=== PATIENT | male | born 1960 | race Caucasian/White ===

== ENCOUNTER 2021-05-24 09:48 | Inpatient (IN) | payer OTHER, SELFPAY ==
[2021-05-24] VITALS (12 sets, daily range): BP systolic 97–158; BP diastolic 64–82; PULSE 61–151; RESP 14–20; TEMP 36.1–37; O2SAT 92–995; BMI 24.5
--- NOTE | 2021-05-24 | ECG_ITS ---
Test Reason : SOB Blood Pressure : / mmHG Vent. Rate : 129 BPM Atrial Rate : 138 BPM P-R Int : 000 ms QRS Dur : 142 ms QT Int : 364 ms P-R-T Axes : 000 009 053 degrees QTc Int : 533 ms Atrial fibrillation with rapid ventricular response Right bundle branch block Possible Inferior infarct , age undetermined Abnormal ECG No previous ECGs available Referred By: Generic ED Physician Electronically Signed By:CHRIS ALEJANDRO
--- NOTE | ~2021-05-24 | US_ITS ---
EXAMINATION: US VENOUS ULTRASOUND WITH DOPPLER LOWER EXTREMITY, RIGHT CLINICAL INFORMATION: Pain and swelling COMPARISON: None TECHNIQUE: Ultrasound of the deep veins is performed from the hip to the calf with compression sonography and color and pulse Doppler assessment. Spectral analysis with color-flow imaging is performed. FINDINGS: There is normal venous compression and respiratory variation and augmented flow. The visualized common femoral vein, superficial femoral vein, profunda femoral vein, popliteal vein, and posterior tibial vein shows no evidence of deep venous thrombosis. The peroneal vein is not visualized. There is evidence of severe atherosclerotic disease. There is no significant popliteal fossa cyst. US/US venous duplex LE RT IMPRESSION: No DVT demonstrated in the right lower extremity. Peroneal vein in the calf is not visualized. Severe atherosclerotic disease.
--- NOTE | ~2021-05-24 | CT_ITS ---
EXAMINATION: CT ANGIOGRAM OF THE CHEST WITH AND WITHOUT CONTRAST (CT PULMONARY ANGIOGRAM FOR PE) CLINICAL INFORMATION: Reason for Exam dyspnea eval for PE COMPARISON: None TECHNIQUE: Prior to contrast administration, noncontrast localization images were obtained. Subsequently, multidetector volumetric imaging was performed from the thoracic inlet to below the diaphragms following the administration of 65 mL Omnipaque 350 intravenous contrast. No contrast reaction reported Sagittal, coronal, and MIP oblique sagittal reformatted images were obtained on the CT workstation, uploaded to PACS, and reviewed. This CT examination was performed using dose optimization techniques as appropriate, variously including the following: *Automated exposure control *Adjustment of mA and/or kV according to patient size (this includes techniques or standardized protocols for targeted exams where dose is matched to indication/reason for exam; i.e. extremities or head) *Use of iterative reconstruction technique Total exam dose-length product 332 mGy-cm FINDINGS: QUALITY OF STUDY/CONTRAST BOLUS: Satisfactory. PULMONARY ARTERIES: No evidence of filling defects to suggest central or segmental pulmonary emboli. THORACIC AORTA: Normal caliber aorta. LUNG: Linear and patchy airspace opacities in the posterior aspect of the right upper lobe, the right middle and lower lobes, which could reflect atelectasis or infiltrate. Mild atelectasis in the left lower lobe.. PLEURA: Moderate right pleural effusion. Small to moderate left pleural effusion. MEDIASTINUM: Heart is mildly enlarged. No pericardial effusion. No hilar or mediastinal lymphadenopathy. No evidence of septal bowing or right heart strain. CHEST WALL/AXILLA: No axillary or internal mammary lymphadenopathy. OSSEOUS STRUCTURES: Multilevel degenerative changes in the spine. UPPER ABDOMEN: There is small ascites in the right upper quadrant. Small free fluid in the left upper quadrant, including adjacent to the large colon. Small contrast refluxing into the IVC, suggesting mild elevated right heart pressures. CT/CT angio chest PE protocol IMPRESSION: 1. No evidence of filling defects to suggest central or segmental pulmonary emboli. 2. Moderate right pleural effusion. Small to moderate left pleural effusion. 3. Opacities in the right hemithorax which could reflect atelectasis or airspace disease. Left lower lobe atelectasis adjacent to the pleural effusion. 4. Small ascites in the upper abdomen. 5. Small contrast refluxing into the IVC suggesting mild elevated right heart pressures. VTE: negative
--- NOTE | 2021-05-24 10:17 | ED.SOB ---
HPI - SOB/Dyspnea General Chief Complaint: Dyspnea Stated Complaint: DIFF BREATHING Time Seen by Provider: 05/24/21 10:16 Source: patient Mode of arrival: ambulatory Limitations: no limitations History of Present Illness HPI Narrative: 60 yo male with HTN, COPD still smoking heavy drinker last drinnk last night 1 week of dyspnea and RLE swelling MD elicited complaint: shortness of breath Pertinent past history: COPD Onset (ago): week(s) (1) Context: smoke/fume exposure Timing: progressively worsening Severity: severe Exacerbating factors: exertion Relieving factors: nothing Known history of: COPD Associated symptoms: lower extremity pain and palpitations Treatment prior to arrival: none Related Data Allergies Allergy/AdvReac Type Severity Reaction Status Date / Time bee pollen [BEE STINGS] Allergy Severe SWELLING Unverified 06/04/20 14:42 chlorthalidone Allergy Unknown Verified 05/25/17 00:00 ibuprofen Allergy Unknown Verified 05/25/17 00:00 bee sting Allergy Unknown anaphylaxis Uncoded 10/22/19 00:00 HCTZ Allergy Unknown Uncoded 05/25/17 00:00 NSAIDs/HCTZ/Chlorthalidone Allergy Unknown hyponatremi Uncoded 10/22/19 00:00 a Review of Systems Review of Systems: Constitutional : No Fever, No Chills ENT/Mouth : No sore throat, No Rhinorrhea, No Swallowing Difficulty Eyes: No Eye Pain, No Swelling, No Redness Cardiovascular : No Chest Pain, positive SOB, No Orthopnea, positive Edema, pos palpitations Respiratory : No Cough, No Sputum, No Wheezing, positive dyspnea Gastrointestinal : No Nausea, No Vomiting, No Diarrhea, No abdominal Pain, No Hematochezia, No Melena Genitourinary : No Dysuria, No Urinary Frequency, No Hematuria Musculoskeletal : No joint pain, No Myalgias Skin : No Skin Lesions, No rash Neuro : No Weakness, No Numbness, No Dizziness, No Headache Psych : No Anxiety/Panic, No Depression Heme/Lymph: No Bruising, No Lymphadenopathy Endocrine : No Polyuria, No Polydipsia All other systems reviewed and are negative [facility] Past Medical History Attestation statement: The following information was validated with the patient. Medical History Alcohol abuse COPD (chronic obstructive pulmonary disease) HTN (hypertension) Social History Social History (Updated 05/24/21 @ 10:50 by Mar Krishna DO) Alcohol intake: current Patient Tobacco Use Status: Current everyday Tobacco user Advance Directives: No Advance Directives Information Provided: No Physical Exam Vital Signs: Vital Signs: Last Vital Signs Temp 98.5 F 05/24/21 09:57 Pulse 125 H 05/24/21 12:58 Resp 19 05/24/21 12:03 BP 106/74 05/24/21 12:03 Pulse Ox 97 05/24/21 12:03 Body Mass Index 24.5 Appearance: Alert. Oriented X3. Mild acute distress. Anxious Eyes: Pupils equal, round and reactive to light. ENT: Pharynx normal. Neck: Normal inspection. Neck supple. CVS: tachycardic and irregular heart rate and rhythm. Pulses normal. Respiratory: Mild acute resp distress retractions and short phrases, rales in both bases noted diffuse upper lobe wheezing noted Abdomen: Soft and nontender. Skin: Skin warm and dry. Normal skin color. Normal skin turgor. Extremities: R LE swelling >>> L. denies calf ttp Neuro: Oriented X 3. No motor deficit. No sensory deficit. tremulous Course Course Course Narrative: lactic acidosis due to ETOH abuse and not infection or severe sepsis IV lasix ordered, ceftriaxone given, admit to hospitalist, pending MDM - SOB/Dyspnea MDM Narrative Medical decision making narrative: 60 yo male with hx of HTN, COPD - smoker, heavy ETOH abuse comes in with multiple issues including afib with RVR, ETOH withdrawal, COPD exacerbation as well as RLE swelling and concern for PE - labs, IV steroids, 5mg neb, CTA for PE ordered, IV magnesium, dilt gtt for rate control. Planned admit. Phenobarb protocol initiated Lab Data Result diagrams: 05/24/21 10:39 05/24/21 10:39 Labs: Lab Results 05/24/21 05/24/21 05/24/21 Range/Units 10:39 10:39 10:39 WBC 3.8 L (4.8-10.8) X10*3/uL RBC 3.71 L (4.60-5.80) X10*6/uL Hgb 11.6 L (14.0-18.0) g/dl Hct 35.1 L (42-52) % MCV 94.6 (80-98) fL MCH 31.3 (27.0-33.0) pg MCHC 33.0 (31.0-36.0) g/dl RDW 14.6 (11.0-16.0) % Plt Count 132 L (160-400) X10*3/uL MPV 9.8 (9.4-12.4) fL Immature Gran % (Auto) 0.3 (0.0-0.4) % Neut % (Auto) 67.2 (45-73) % Lymph % (Auto) 26.1 (20-40) % [place] % (Auto) 5.1 (2-11) % Eos % (Auto) 0.5 (0-4) % Baso % (Auto) 0.8 (0-2) % Lymph # (Auto) 1.0 L (1.2-4.9) X10*3/uL [place] # (Auto) 0.2 (0.1-1.2) X10*3/uL Eos # (Auto) 0.0 (0.0-0.4) X10*3/uL Baso # (Auto) 0.0 (0.0-0.2) X10*3/uL Abs Immat Gran (auto) 0.01 (0.00-0.03) X10*3/uL Absolute Neuts (auto) 2.5 (2.0-8.3) X10*3/uL Absolute Nucleated RBC 0.000 (0.0-0.012) X10*3/uL Nucleated RBC % (auto) 0.0 (0.0-0.2) /100WBC PT 11.2 (9.9-13.0) SEC INR 1.0 (0.9-1.1) APTT 38.9 H (24.1-38.0) SEC VBG pH (7.32-7.43) VBG pCO2 mmHg VBG pO2 mmHg VBG HCO3 (22-26) mmol/L VBG O2 Saturation % VBG Base Excess mmol/L Sodium 131 L (135-145) mmol/L Potassium 4.2 (3.3-5.1) mmol/L Chloride 98 (96-108) mmol/L Carbon Dioxide 19 L (22-29) mmol/L Anion Gap 18 (12-20) BUN 25 H (9-16) mg/dL Creatinine 0.81 (0.5-1.4) mg/dL Estim Creat Clear Calc 89.5 Estimated GFR > 60 Random Glucose 93 (60-115) mg/dL Lactic Acid (0.5-2.0) mmol/L Calcium 7.9 L (8.4-10.2) mg/dL Magnesium 1.4 L* (1.6-2.6) mg/dL Total Bilirubin 1.6 H (0.0-1.0) mg/dL Direct Bilirubin 1.1 H (0.0-0.5) mg/dL AST 37 (5-37) U/L ALT 9 (0-40) U/L Alkaline Phosphatase 74 (39-117) U/L Troponin I High Sens (<3.5-35.0) ng/L B-Natriuretic Peptide (<100) pg/mL Total Protein 6.4 L (6.5-8.0) g/dL Albumin 3.9 (3.5-5.0) g/dL Lipase 36 (8-78) U/L Ethyl Alcohol mg/dL Coronavirus (PCR) (Negative) Influenza Type A (PCR) (Negative) Influenza Type B (PCR) (Negative) RSV RNA Qual (PCR) (Negative) 05/24/21 05/24/21 05/24/21 Range/Units 10:39 10:39 10:40 WBC (4.8-10.8) X10*3/uL RBC (4.60-5.80) X10*6/uL Hgb (14.0-18.0) g/dl Hct (42-52) % MCV (80-98) fL MCH (27.0-33.0) pg MCHC (31.0-36.0) g/dl RDW (11.0-16.0) % Plt Count (160-400) X10*3/uL MPV (9.4-12.4) fL Immature Gran % (Auto) (0.0-0.4) % Neut % (Auto) (45-73) % Lymph % (Auto) (20-40) % [place] % (Auto) (2-11) % Eos % (Auto) (0-4) % Baso % (Auto) (0-2) % Lymph # (Auto) (1.2-4.9) X10*3/uL [place] # (Auto) (0.1-1.2) X10*3/uL Eos # (Auto) (0.0-0.4) X10*3/uL Baso # (Auto) (0.0-0.2) X10*3/uL Abs Immat Gran (auto) (0.00-0.03) X10*3/uL Absolute Neuts (auto) (2.0-8.3) X10*3/uL Absolute Nucleated RBC (0.0-0.012) X10*3/uL Nucleated RBC % (auto) (0.0-0.2) /100WBC PT (9.9-13.0) SEC INR (0.9-1.1) APTT (24.1-38.0) SEC VBG pH (7.32-7.43) VBG pCO2 mmHg VBG pO2 mmHg VBG HCO3 (22-26) mmol/L VBG O2 Saturation % VBG Base Excess mmol/L Sodium (135-145) mmol/L Potassium (3.3-5.1) mmol/L Chloride (96-108) mmol/L Carbon Dioxide (22-29) mmol/L Anion Gap (12-20) BUN (9-16) mg/dL Creatinine (0.5-1.4) mg/dL Estim Creat Clear Calc Estimated GFR Random Glucose (60-115) mg/dL Lactic Acid 2.8 H* (0.5-2.0) mmol/L Calcium (8.4-10.2) mg/dL Magnesium (1.6-2.6) mg/dL Total Bilirubin (0.0-1.0) mg/dL Direct Bilirubin (0.0-0.5) mg/dL AST (5-37) U/L ALT (0-40) U/L Alkaline Phosphatase (39-117) U/L Troponin I High Sens 22.2 (<3.5-35.0) ng/L B-Natriuretic Peptide 1079 H (<100) pg/mL Total Protein (6.5-8.0) g/dL Albumin (3.5-5.0) g/dL Lipase (8-78) U/L Ethyl Alcohol 248 mg/dL Coronavirus (PCR) (Negative) Influenza Type A (PCR) (Negative) Influenza Type B (PCR) (Negative) RSV RNA Qual (PCR) (Negative) 05/24/21 05/24/21 Range/Units 10:49 11:28 WBC (4.8-10.8) X10*3/uL RBC (4.60-5.80) X10*6/uL Hgb (14.0-18.0) g/dl Hct (42-52) % MCV (80-98) fL MCH (27.0-33.0) pg MCHC (31.0-36.0) g/dl RDW (11.0-16.0) % Plt Count (160-400) X10*3/uL MPV (9.4-12.4) fL Immature Gran % (Auto) (0.0-0.4) % Neut % (Auto) (45-73) % Lymph % (Auto) (20-40) % [place] % (Auto) (2-11) % Eos % (Auto) (0-4) % Baso % (Auto) (0-2) % Lymph # (Auto) (1.2-4.9) X10*3/uL [place] # (Auto) (0.1-1.2) X10*3/uL Eos # (Auto) (0.0-0.4) X10*3/uL Baso # (Auto) (0.0-0.2) X10*3/uL Abs Immat Gran (auto) (0.00-0.03) X10*3/uL Absolute Neuts (auto) (2.0-8.3) X10*3/uL Absolute Nucleated RBC (0.0-0.012) X10*3/uL Nucleated RBC % (auto) (0.0-0.2) /100WBC PT (9.9-13.0) SEC INR (0.9-1.1) APTT (24.1-38.0) SEC VBG pH 7.32 (7.32-7.43) VBG pCO2 36 mmHg VBG pO2 51 mmHg VBG HCO3 18 L (22-26) mmol/L VBG O2 Saturation 72.0 % VBG Base Excess -6.4 mmol/L Sodium (135-145) mmol/L Potassium (3.3-5.1) mmol/L Chloride (96-108) mmol/L Carbon Dioxide (22-29) mmol/L Anion Gap (12-20) BUN (9-16) mg/dL Creatinine (0.5-1.4) mg/dL Estim Creat Clear Calc Estimated GFR Random Glucose (60-115) mg/dL Lactic Acid (0.5-2.0) mmol/L Calcium (8.4-10.2) mg/dL Magnesium (1.6-2.6) mg/dL Total Bilirubin (0.0-1.0) mg/dL Direct Bilirubin (0.0-0.5) mg/dL AST (5-37) U/L ALT (0-40) U/L Alkaline Phosphatase (39-117) U/L Troponin I High Sens (<3.5-35.0) ng/L B-Natriuretic Peptide (<100) pg/mL Total Protein (6.5-8.0) g/dL Albumin (3.5-5.0) g/dL Lipase (8-78) U/L Ethyl Alcohol mg/dL Coronavirus (PCR) NEGATIVE (Negative) Influenza Type A (PCR) NEGATIVE (Negative) Influenza Type B (PCR) NEGATIVE (Negative) RSV RNA Qual (PCR) NEGATIVE (Negative) ECG Data Attestation: I personally reviewed and interpreted this ECG as follows: ECG interpretation date: 05/24/21 ECG interpretation time: 10:57 Interpretation: Rate: 129 Rhythm: afib with RVR [place]: normal RBBB ST T wave : no PAVITHRA, nonspecific qTC: normal prior studies: changed from prior The study has been interpreted contemporaneously by me. . Critical Care Time Critical Care Time Critical Care Time: Yes Total Critical Care Time: 60 Attestation: IV dilt gtt, IV lasix, 5mg albuterol neb, lyte replacement, ETOH withdrawal with phenobarb I attest to this time spent taking care of the patient Discharge Plan Discharge Clinical Impression: Hypomagnesemia, Acidosis, lactic, Pleural effusion, Acute dyspnea, Atrial fibrillation with rapid ventricular response COPD (chronic obstructive pulmonary disease) Qualifiers: COPD type: COPD with acute exacerbation Qualified Code(s): J44.1 - Chronic obstructive pulmonary disease with (acute) exacerbation Patient Disposition: Admitted As Inpatient
[2021-05-24] MEDS: dilTIAZem HCL 50 MG/10 ML VIAL 10 MG IVPUSH (10:42)
[2021-05-24] MEDS: Magnesium Sulfate/H2O 2 GM/50 ML PIGGYBACK IV (10:45)
[2021-05-24] MEDS: methylPREDNISolone Sod Succ 125 MG/2 ML VIAL IVPUSH (10:45)
[2021-05-24 10:48] LABS: MANUAL DIFF FLAG NO
[2021-05-24 10:50] LABS: Basophils Percent Auto 0.8 % (0-2); Eosinophils Percent Auto 0.5 % (0-4); Hematocrit 35.1 % (42-52); Hemoglobin 11.6 g/dl (14.0-18.0); Imm Gran Abs Auto 0.01 X10*3/uL (0.00-0.03); Imm Gran Pct Auto 0.3 % (0.0-0.4); Lymphocytes Percent Auto 26.1 % (20-40); Mean Corpuscular Hemoglobin 31.3 pg (27.0-33.0); Mean Corpuscular Volume 94.6 fL (80-98); Mean Platelet Volume 9.8 fL (9.4-12.4); Monocytes Absolute Auto 0.2 X10*3/uL (0.1-1.2); Monocytes Percent Auto 5.1 % (2-11); Neutrophils Absolute Auto 2.5 X10*3/uL (2.0-8.3); Neutrophils Percent Auto 67.2 % (45-73); Platelet Count 132 X10*3/uL (160-400); Red Blood Count 3.71 X10*6/uL (4.60-5.80); Red Cell Distribution Width 14.6 % (11.0-16.0); White Blood Count 3.8 X10*3/uL (4.8-10.8)
[2021-05-24 10:54] LABS: VBG Base Excess -6.4 mmol/L; VBG HCO3 18 mmol/L (22-26); VBG pCO2 36 mmHg; VBG pH 7.32 (7.32-7.43); VBG pO2 51 mmHg
[2021-05-24 10:56] LABS: Prothrombin Time 11.2 SEC (9.9-13.0); Venous Blood Gas Refer to POC result
[2021-05-24 10:59] LABS: Partial Thromboplastin Time 38.9 SEC (24.1-38.0)
[2021-05-24 11:05] LABS: Ethanol 248 mg/dL; Lactic Acid 2.8 mmol/L (0.5-2.0)
[2021-05-24 11:11] LABS: B Type Natriuretic Peptide 1079 pg/mL (<100); Troponin-I High Sensitivity 22.2 ng/L (<3.5-35.0)
[2021-05-24 11:13] LABS: Alanine Aminotransferase 9 U/L (0-40); Albumin Level 3.9 g/dL (3.5-5.0); Alkaline Phosphatase 74 U/L (39-117); Anion Gap 18 (12-20); Aspartate Amino Transferase 37 U/L (5-37); Bilirubin Direct 1.1 mg/dL (0.0-0.5); Bilirubin Total 1.6 mg/dL (0.0-1.0); Blood Urea Nitrogen 25 mg/dL (9-16); Calcium 7.9 mg/dL (8.4-10.2); Carbon Dioxide 19 mmol/L (22-29); Chloride 98 mmol/L (96-108); Creatinine Clr Calc Pharmacy 89.5; Estimated Glomerular Filt Rate > 60; Glucose Random 93 mg/dL (60-115); Lipase 36 U/L (8-78); Magnesium 1.4 mg/dL (1.6-2.6); Potassium 4.2 mmol/L (3.3-5.1); Sodium 131 mmol/L (135-145); Total Protein 6.4 g/dL (6.5-8.0)
[2021-05-24] MEDS: cefTRIAXone sodium 1 GM in 0.9 % Sodium Chloride 50 ML IV (11:16)
[2021-05-24] MEDS: dilTIAZem HCL 125 MG in 0.9 % Sodium Chloride 100 ML 10 MG IVCONT ×2 (11:50→23:02)
[2021-05-24] MEDS: PHENobarbitaL sodium 130 MG/ML VIAL 264 MG IM (11:56)
[2021-05-24] MEDS: iohexoL 350 MG/ML 100 ML INFUS..BTL IV (11:58)
[2021-05-24] MEDS: Furosemide 40 MG/4 ML VIAL IVPUSH ×2 (11:58→19:08)
[2021-05-24 12:13] LABS: Influenza A PCR NEGATIVE (Negative); Influenza B PCR NEGATIVE (Negative); Resp Syncy Virus RNA Qual PCR NEGATIVE (Negative); SARS COV2 PCR INHOUSE NEGATIVE (Negative)
[2021-05-24 12:46] LABS: Reflex Lactate? Lactic Acid Added
[2021-05-24] MEDS: Albuterol Sulfate (0.083%) 2.5 MG/3 ML VIAL.NEB 5 MG INHALE (12:57)
--- NOTE | 2021-05-24 14:32 | P.HPHOSP_ITS ---
History of Present Illness Date of Service: 05/24/21 Chief Complaint: shortness of breath 60-year-old man presented to the ER with complaints of worsening shortness of breath especially with exertion. He has a history of congestive heart failure, COPD and alcohol abuse. He drinks at least 2 shots of bourbon a day likely more, his last drink was this morning around 03:00 o'clock a.m.. Shortness of breath noted to be about a week with right lower extremity edema. In the ER, he was noted to be in atrial fibrillation with rapid ventricular response. sodium 131, lactic acid peaked at 5.3, magnesium 1.4, bnp 1079. Venous doppler us and CTA both negative. He was not noted to be hypoxic. He was given IV diltiazem drip as well as IV magnesium. he will be admitted for further management and treatment of atrial fibrillation with rapid ventricular response and COPD exacerbation. Review of Systems Review of Systems: Denies any recent fever chills or decrease in appetite respiratory reports shortness of breath cardiovascular denies chest pain gastrointestinal denies any dysphagia abdominal pain nausea vomiting or diarrhea genitourinary denies any dysuria frequency or hematuria musculoskeletal denies any joint pain or swelling neuropsych denies any weakness or seizures all other systems reviewed are negative [facility] Medical History (Updated 05/24/21 @ 16:18 by Elda Reddy NP) Alcohol abuse COPD (chronic obstructive pulmonary disease) HTN (hypertension) Pertinent family history: Mothers side, heart disease Surgical History (Updated 05/24/21 @ 16:01 by Elda Reddy NP) H/O left knee surgery Social History (Updated 05/24/21 @ 16:02 by Elda Reddy NP) Alcohol intake: current Alcohol intake frequency: 3 or more drinks per day Advance Directives: No Advance Directives Information Provided: No Meds Allergies Allergy/AdvReac Type Severity Reaction Status Date / Time bee pollen [BEE STINGS] Allergy Severe SWELLING Unverified 06/04/20 14:42 chlorthalidone Allergy Unknown Verified 05/25/17 00:00 ibuprofen Allergy Unknown Verified 05/25/17 00:00 bee sting Allergy Unknown anaphylaxis Uncoded 10/22/19 00:00 HCTZ Allergy Unknown Uncoded 05/25/17 00:00 NSAIDs/HCTZ/Chlorthalidone Allergy Unknown hyponatremi Uncoded 10/22/19 00:00 a Active Medications: Current Medications Generic Name Dose Route Start Last Admin Trade Name Freq PRN Reason Stop Dose Admin Acetaminophen 650 mg 05/24/21 14:24 Acetaminophen 325 Mg Tablet PO Q6H PRN Pain, Mild (Pain Scale 1-3) Furosemide 40 mg 05/24/21 18:00 Furosemide 40 Mg/4 Ml Vial IVPUSH BID@0900,1800 [facility] Protocol Diltiazem HCl 125 mg/ Sodium 125 mls @ 0 mls/hr 05/24/21 11:00 05/24/21 11:50 Chloride IVCONT 10 mg/hr .Q0M DUANE 10 mls/hr Administration Protocol Per Protocol Medication 1 each 05/24/21 09:00 No Benzodiazepines MISCELLANE DAILY [facility] Ondansetron HCl 4 mg 05/24/21 14:24 Ondansetron Hcl 4 Mg/2 Ml Vial IVPUSH Q8H PRN Nausea and Vomiting Phenobarbital 45 mg 05/25/21 09:00 Phenobarbital 15 Mg Tablet PO 05/26/21 21:01 BID [facility] Phenobarbital 15 mg 05/27/21 09:00 Phenobarbital 15 Mg Tablet PO 05/28/21 21:01 BID [facility] Phenobarbital 15 mg 05/29/21 09:00 Phenobarbital 15 Mg Tablet PO 05/30/21 09:01 DAILY [facility] Phenobarbital Sodium 198 mg 05/24/21 15:00 Phenobarbital Sodium 130 Mg/Ml Vial IM 05/24/21 18:01 Q3H [facility] Sodium Chloride 3 ml 05/24/21 16:00 0.9 % Sodium Chloride Flush 3 Ml Syringe IVFLUSH QSHIFT [facility] Home Medications Medication Instructions Recorded Confirmed Last Taken Type amlodipine 10 mg tablet 1 tab PO DAILY 05/24/21 05/24/21 05/24/21 History lisinopril 10 mg tablet 1 tab PO DAILY 05/24/21 05/24/21 05/24/21 History Physical Exam Vital Signs and Narrative: Vital Signs: Last Vital Signs Temp 98.5 F 05/24/21 09:57 Pulse 112 H 05/24/21 14:13 Resp 19 05/24/21 14:13 BP 110/72 05/24/21 14:13 Pulse Ox 98 05/24/21 14:13 Body Mass Index 24.5 Appearing in no acute distress head is normocephalic atraumatic eyes pupils are PERRLA sclera is anicteric mouth throat mucous membranes are intact and moist neck is supple no lymphadenopathy, no JVD noted lung sounds exp wheezing heart regular rate rhythm, clear S1, S2 positive bowel sounds, abdomen is soft, nontender neuro patient is alert x3, no focal deficits Results Labs CBC and Chem 7: 05/24/21 10:39 05/24/21 10:39 Labs: Laboratory Results - last 24 hr 05/24/21 05/24/21 05/24/21 10:39 10:39 10:39 MCV 94.6 MCH 31.3 MCHC 33.0 RDW 14.6 Plt Count 132 L MPV 9.8 Immature Gran % (Auto) 0.3 Neut % (Auto) 67.2 Lymph % (Auto) 26.1 [place] % (Auto) 5.1 Eos % (Auto) 0.5 Baso % (Auto) 0.8 Lymph # (Auto) 1.0 L [place] # (Auto) 0.2 Eos # (Auto) 0.0 Baso # (Auto) 0.0 Abs Immat Gran (auto) 0.01 Absolute Neuts (auto) 2.5 Absolute Nucleated RBC 0.000 Nucleated RBC % (auto) 0.0 PT 11.2 INR 1.0 APTT 38.9 H VBG pH VBG pCO2 VBG pO2 VBG HCO3 VBG O2 Saturation VBG Base Excess Anion Gap 18 Estim Creat Clear Calc 89.5 Estimated GFR > 60 Random Glucose 93 Lactic Acid Calcium 7.9 L Magnesium 1.4 L* Total Bilirubin 1.6 H Direct Bilirubin 1.1 H AST 37 ALT 9 Alkaline Phosphatase 74 Troponin I High Sens B-Natriuretic Peptide Total Protein 6.4 L Albumin 3.9 Lipase 36 Ethyl Alcohol Coronavirus (PCR) COVID-19 (JAMAR) COVID-19 Clin Com Influenza Type A (PCR) Influenza Type B (PCR) RSV RNA Qual (PCR) 05/24/21 05/24/21 05/24/21 10:39 10:39 10:40 MCV MCH MCHC RDW Plt Count MPV Immature Gran % (Auto) Neut % (Auto) Lymph % (Auto) [place] % (Auto) Eos % (Auto) Baso % (Auto) Lymph # (Auto) [place] # (Auto) Eos # (Auto) Baso # (Auto) Abs Immat Gran (auto) Absolute Neuts (auto) Absolute Nucleated RBC Nucleated RBC % (auto) PT INR APTT VBG pH VBG pCO2 VBG pO2 VBG HCO3 VBG O2 Saturation VBG Base Excess Anion Gap Estim Creat Clear Calc Estimated GFR Random Glucose Lactic Acid 2.8 H* Calcium Magnesium Total Bilirubin Direct Bilirubin AST ALT Alkaline Phosphatase Troponin I High Sens 22.2 B-Natriuretic Peptide 1079 H Total Protein Albumin Lipase Ethyl Alcohol 248 Coronavirus (PCR) COVID-19 (JAMAR) COVID-19 Clin Com Influenza Type A (PCR) Influenza Type B (PCR) RSV RNA Qual (PCR) 05/24/21 05/24/21 05/24/21 10:40 10:49 11:28 MCV MCH MCHC RDW Plt Count MPV Immature Gran % (Auto) Neut % (Auto) Lymph % (Auto) [place] % (Auto) Eos % (Auto) Baso % (Auto) Lymph # (Auto) [place] # (Auto) Eos # (Auto) Baso # (Auto) Abs Immat Gran (auto) Absolute Neuts (auto) Absolute Nucleated RBC Nucleated RBC % (auto) PT INR APTT VBG pH 7.32 VBG pCO2 36 VBG pO2 51 VBG HCO3 18 L VBG O2 Saturation 72.0 VBG Base Excess -6.4 Anion Gap Estim Creat Clear Calc Estimated GFR Random Glucose Lactic Acid Calcium Magnesium Total Bilirubin Direct Bilirubin AST ALT Alkaline Phosphatase Troponin I High Sens B-Natriuretic Peptide Total Protein Albumin Lipase Ethyl Alcohol Coronavirus (PCR) NEGATIVE COVID-19 (JAMAR) Cancelled COVID-19 Clin Com Cancelled Influenza Type A (PCR) NEGATIVE Influenza Type B (PCR) NEGATIVE RSV RNA Qual (PCR) NEGATIVE Imaging Radiologist's Impressions: Impressions Chest CTA 05/24/21 10:27 IMPRESSION: 1. No evidence of filling defects to suggest central or segmental pulmonary emboli. 2. Moderate right pleural effusion. Small to moderate left pleural effusion. 3. Opacities in the right hemithorax which could reflect atelectasis or airspace disease. Left lower lobe atelectasis adjacent to the pleural effusion. 4. Small ascites in the upper abdomen. 5. Small contrast refluxing into the IVC suggesting mild elevated right heart pressures. VTE: negative Venous Duplex 05/24/21 10:30 IMPRESSION: No DVT demonstrated in the right lower extremity. Peroneal vein in the calf is not visualized. Severe atherosclerotic disease. Assessment and Plan (1) Atrial fibrillation with rapid ventricular response: Status: Acute (2) CHF (congestive heart failure): Status: Acute (3) COPD exacerbation: Status: Acute 60 year oldman admitted with acute congestive heart failure, COPD exacerbation and early alcohol withdrawal Afib rvr. new onset. Likely secondary to heart failure, alcohol use Continue diltiazem drip Cardiology consult monitor on telemetry COPD exacerbation . exp wheezing levalbuterol d/t tachycardia solumedrol scheduled supplemental oxygen Alcohol abuse drinks bourban daily on phenobarbitol Hypomagnesemia. Secondary to alcohol use repleted 3gm trend Hyponatremia. Secondary to alcohol use trend DVT prophylaxis with heparin Attending Dr. Shields Quality Stroke Does the patient have a stroke diagnosis?: No VTE Prior VTE?: No VTE Risk Level:: Medical - moderate - high VTE Device Contraindication: Treatment Not Indicated VTE Drug Contraindication: N/A - Med Ordered
[2021-05-24 15:45] LABS: ~Lactic Acid-LAB USE ONLY 5.3 mmol/L (0.5-2.0)
[2021-05-24 15:52] LABS: Glucose Urine UA NEG (NEG); Leukocyte Esterase Urine NEG (NEG); Nitrite Urine NEG (NEG); PH 5.5 (5.0-8.0); Specific Gravity - Urine 1.015 (1.005-1.025); Urine Blood NEG (NEG); Urine Ketones NEG (NEG); Urine Protein NEG (NEG-TRACE)
[2021-05-24 15:54] LABS: Appearance Urine CLEAR; Color Urine STRAW
[2021-05-24] MEDS: PHENobarbitaL sodium 130 MG/ML VIAL 198 MG IM ×2 (16:11→19:10)
[2021-05-24] MEDS: methylPREDNISolone Sod Succ 40 MG/ML VIAL IVPUSH (16:11)
[2021-05-24] MEDS: 0.9 % Sodium Chloride Flush 3 ML SYRINGE IVFLUSH (16:18)
[2021-05-24 17:26] LABS: Reflex Lactate? 2 Y
[2021-05-24 18:09] LABS: ~Lactic Acid-LAB USE ONLY 5.8 mmol/L (0.5-2.0)
[2021-05-25] VITALS (14 sets, daily range): BP systolic 97–127; BP diastolic 63–93; PULSE 74–117; RESP 18–20; TEMP -13.4–36.4; O2SAT 92–96
[2021-05-25] MEDS: methylPREDNISolone Sod Succ 40 MG/ML VIAL IVPUSH ×4 (00:07→20:50)
[2021-05-25] MEDS: 0.9 % Sodium Chloride Flush 3 ML SYRINGE IVFLUSH ×4 (00:07→20:50)
[2021-05-25 05:58] LABS: Hematocrit 30.8 % (42-52); Hemoglobin 10.4 g/dl (14.0-18.0); Imm Gran Abs Auto 0.02 X10*3/uL (0.00-0.03); Imm Gran Pct Auto 0.5 % (0.0-0.4); Lymphocytes Absolute Auto 0.2 X10*3/uL (1.2-4.9); Lymphocytes Percent Auto 3.5 % (20-40); MANUAL DIFF FLAG SCAN; Mean Corpuscular HGB Conc 33.8 g/dl (31.0-36.0); Mean Corpuscular Hemoglobin 31.1 pg (27.0-33.0); Mean Corpuscular Volume 92.2 fL (80-98); Mean Platelet Volume 10.3 fL (9.4-12.4); Monocytes Absolute Auto 0.1 X10*3/uL (0.1-1.2); Monocytes Percent Auto 2.6 % (2-11); Neutrophils Percent Auto 93.4 % (45-73); Platelet Count 109 X10*3/uL (160-400); Red Blood Count 3.34 X10*6/uL (4.60-5.80); Red Cell Distribution Width 14.4 % (11.0-16.0); SCAN SMEAR FLAG 1; White Blood Count 4.3 X10*3/uL (4.8-10.8)
[2021-05-25 06:09] LABS: Anion Gap 18 (12-20); Blood Urea Nitrogen 24 mg/dL (9-16); Carbon Dioxide 20 mmol/L (22-29); Chloride 96 mmol/L (96-108); Creatinine Clr Calc Pharmacy 87.3; Estimated Glomerular Filt Rate > 60; Glucose Random 140 mg/dL (60-115); Potassium 3.7 mmol/L (3.3-5.1); Sodium 130 mmol/L (135-145)
[2021-05-25 06:21] LABS: SLIDE REVIEW VERIFIED
[2021-05-25 08:45] LABS: B Type Natriuretic Peptide 1774 pg/mL (<100)
[2021-05-25 08:59] LABS: Magnesium 1.3 mg/dL (1.6-2.6)
--- NOTE | 2021-05-25 10:02 | PM.CNCAR ---
History of Present Illness History of Present Illness Date of Service: 05/25/21 Chief complaint: CHF Afib RVR Alcohol Abuse Narrative: This is a cardiology consultation regarding atrial fibrillation. Patient is admitted to the hospital with increasing shortness of breath for the last few weeks. There is history of smoking, alcohol excess as well as COPD. Unclear if there is any documented cardiac issues but he gives a vague history of 'cardiovascular problems', in his own terms. Otherwise, there does not seem to be any clear documentation of prior CAD or PCI, congestive heart failure cardiomyopathy. Upon evaluation, noted to be in atrial fibrillation and has remained on scene. Patient does not feel any specific palpitations. Denies any angina type symptoms as well. Review of Systems Review of Systems: Yes all other systems are reviewed and are negative Cardiovascular: Cardiovascular: Reports as per HPI, Reports no additional cardiovascular complaints, Denies acrocyanosis, Denies cool extremities, Denies painful fingertips, Denies chest pain, Denies chest pain at rest, Denies diaphoresis, Denies syncope, Denies irregular heart rhythm, Denies claudication, Denies leg edema, Denies lightheadedness, Denies palpitations and Reports dyspnea Respiratory: Respiratory: Reports dyspnea Neurologic: Denies syncope Endocrine: Endocrine: Denies palpitations PMFSH Past Medical History Medical History (Updated 05/25/21 @ 10:37 by Reyes Anderson MD) Alcohol abuse COPD (chronic obstructive pulmonary disease) HTN (hypertension) Family History Family History (Updated 05/25/21 @ 10:05 by Reyes Anderson MD) Mother Hx of CABG Surgical History Surgical History (Updated 05/24/21 @ 16:01 by Elda Reddy NP) H/O left knee surgery Social History Social History (Updated 05/24/21 @ 16:02 by Elda Reddy NP) Household Members: Family Housing: House Alcohol intake: current Alcohol intake frequency: 3 or more drinks per day Patient Tobacco Use Status: Current everyday Tobacco user Tobacco use type: Cigar Smoked in Last 30 Days: Yes Patient Interested in Nicotine Replacement: No Use of substances other than those prescribed or required for medical reasons: No Currently Displaying Signs/Symptoms of Drug Intoxication Withdrawal: No Have you been hit, kicked, punched, or otherwise hurt by someone within the past year? If so, by whom?: No Do you feel safe in your current relationship?: No Current Relationship Is there a partner from a previous relationship who is making you feel unsafe now?: No Are you made to feel afraid or neglected: No Advance Directives: No Advance Directives Information Provided: No Do you have thoughts of harming others: None Do you have a plan to hurt others: No Plan Recently lost weight without trying: No Nutrition Risks: No Nutritional Risk Meds Allergies Allergy/AdvReac Type Severity Reaction Status Date / Time bee pollen [BEE STINGS] Allergy Severe SWELLING Unverified 06/04/20 14:42 chlorthalidone Allergy Unknown Verified 05/25/17 00:00 ibuprofen Allergy Unknown Verified 05/25/17 00:00 bee sting Allergy Unknown anaphylaxis Uncoded 10/22/19 00:00 HCTZ Allergy Unknown Uncoded 05/25/17 00:00 NSAIDs/HCTZ/Chlorthalidone Allergy Unknown hyponatremi Uncoded 10/22/19 00:00 a Active Medications: Current Medications Generic Name Dose Route Start Last Admin Trade Name Freq PRN Reason Stop Dose Admin Acetaminophen 650 mg 05/24/21 14:24 Acetaminophen 325 Mg Tablet PO Q6H PRN Pain, Mild (Pain Scale 1-3) Furosemide 40 mg 05/24/21 18:00 05/24/21 19:08 Furosemide 40 Mg/4 Ml Vial IVPUSH 40 mg BID@0900,1800 DUANE Administration Protocol Diltiazem HCl 125 mg/ Sodium 125 mls @ 0 mls/hr 05/24/21 11:00 05/24/21 23:02 Chloride IVCONT 10 mg/hr .Q0M DUANE 10 mls/hr Administration Protocol Per Protocol Levalbuterol HCl 1.25 mg 05/24/21 16:00 05/25/21 07:32 Levalbuterol Hcl 1.25 Mg/0.5 Ml Vial.Neb INHALE 1.25 mg RQ4H WHILE AWAKE DUANE Administration Medication 1 each 05/24/21 09:00 No Benzodiazepines MISCELLANE DAILY DUANE Melatonin 6 mg 05/24/21 18:12 Melatonin 3 Mg Tablet PO BEDTIME PRN Sleep Methylprednisolone Sodium Succinate 40 mg 05/24/21 15:45 05/25/21 08:02 Methylprednisolone Sod Succ 40 Mg/Ml Vial IVPUSH 40 mg Q8H DUANE Administration Ondansetron HCl 4 mg 05/24/21 14:24 Ondansetron Hcl 4 Mg/2 Ml Vial IVPUSH Q8H PRN Nausea and Vomiting Phenobarbital 45 mg 05/25/21 09:00 Phenobarbital 15 Mg Tablet PO 05/26/21 21:01 BID [facility] Phenobarbital 15 mg 05/27/21 09:00 Phenobarbital 15 Mg Tablet PO 05/28/21 21:01 BID [facility] Phenobarbital 15 mg 05/29/21 09:00 Phenobarbital 15 Mg Tablet PO 05/30/21 09:01 DAILY [facility] Sodium Chloride 3 ml 05/24/21 16:00 05/25/21 08:01 0.9 % Sodium Chloride Flush 3 Ml Syringe IVFLUSH 3 ml QSHIFT [facility] Administration Home Medications Medication Instructions Recorded Confirmed Last Taken Type amlodipine 10 mg tablet 1 tab PO DAILY 05/24/21 05/24/21 05/24/21 History lisinopril 10 mg tablet 1 tab PO DAILY 05/24/21 05/24/21 05/24/21 History Physical Exam Vital Signs: Vital Signs: Last Vital Signs Temp 97 F 05/25/21 06:53 Pulse 78 05/25/21 07:33 Resp 20 05/25/21 06:53 BP 98/69 05/25/21 06:53 Pulse Ox 96 05/25/21 06:53 Body Mass Index 24.5 Const: General: cooperative and no acute distress HENMT: Other: Unremarkable Neck: Neck: Yes normal visual inspection Chest: Chest palpation & inspection: normal inspection of the chest Resp: Other: Diminished breath sounds bilaterally with scattered wheezing. Cardio: Jugular venous distension: no JVD Palpation: normal PMI Heart sounds: S1 normal heart sound present, S2 normal heart sound present, no gallops, no murmurs and no rubs GI: Palpation (GI): Soft to palpation Back/Spine/Pelvis: Other: unremarkable Skin: General skin exam: no rashes or lesions noted Neuro: Cranial nerves: Yes Other cranial nerve findings present Extrem: General: Yes no clubbing, cyanosis or edema Psych: Mental Status: other Results Labs and Meds Result diagrams: 05/25/21 04:46 05/25/21 04:46 Lab results: Laboratory Results - last 24 hr 05/24/21 05/24/21 05/24/21 10:39 10:39 10:39 WBC 3.8 L RBC 3.71 L Hgb 11.6 L Hct 35.1 L MCV 94.6 MCH 31.3 MCHC 33.0 RDW 14.6 Plt Count 132 L MPV 9.8 Immature Gran % (Auto) 0.3 Neut % (Auto) 67.2 Lymph % (Auto) 26.1 [place] % (Auto) 5.1 Eos % (Auto) 0.5 Baso % (Auto) 0.8 Lymph # (Auto) 1.0 L [place] # (Auto) 0.2 Eos # (Auto) 0.0 Baso # (Auto) 0.0 Abs Immat Gran (auto) 0.01 Absolute Neuts (auto) 2.5 Absolute Nucleated RBC 0.000 Nucleated RBC % (auto) 0.0 Smear Tech's Comments PT 11.2 INR 1.0 APTT 38.9 H VBG pH VBG pCO2 VBG pO2 VBG HCO3 VBG O2 Saturation VBG Base Excess Sodium 131 L Potassium 4.2 Chloride 98 Carbon Dioxide 19 L Anion Gap 18 BUN 25 H Creatinine 0.81 Estim Creat Clear Calc 89.5 Estimated GFR > 60 Random Glucose 93 Lactic Acid Lactic Acid Fup @ 2Hr Lactic Acid Fup @ 4Hr Calcium 7.9 L Magnesium 1.4 L* Total Bilirubin 1.6 H Direct Bilirubin 1.1 H AST 37 ALT 9 Alkaline Phosphatase 74 Troponin I High Sens B-Natriuretic Peptide Total Protein 6.4 L Albumin 3.9 Lipase 36 Urine Color Urine Appearance Urine pH Ur Specific [place] Urine Protein Urine Glucose (UA) Urine Ketones Urine Blood Urine Nitrite Ur Leukocyte Esterase Ethyl Alcohol Coronavirus (PCR) COVID-19 (JAMAR) COVID-19 Clin Com Influenza Type A (PCR) Influenza Type B (PCR) RSV RNA Qual (PCR) 05/24/21 05/24/21 05/24/21 10:39 10:39 10:40 WBC RBC Hgb Hct MCV MCH MCHC RDW Plt Count MPV Immature Gran % (Auto) Neut % (Auto) Lymph % (Auto) [place] % (Auto) Eos % (Auto) Baso % (Auto) Lymph # (Auto) [place] # (Auto) Eos # (Auto) Baso # (Auto) Abs Immat Gran (auto) Absolute Neuts (auto) Absolute Nucleated RBC Nucleated RBC % (auto) Smear Tech's Comments PT INR APTT VBG pH VBG pCO2 VBG pO2 VBG HCO3 VBG O2 Saturation VBG Base Excess Sodium Potassium Chloride Carbon Dioxide Anion Gap BUN Creatinine Estim Creat Clear Calc Estimated GFR Random Glucose Lactic Acid 2.8 H* Lactic Acid Fup @ 2Hr Lactic Acid Fup @ 4Hr Calcium Magnesium Total Bilirubin Direct Bilirubin AST ALT Alkaline Phosphatase Troponin I High Sens 22.2 B-Natriuretic Peptide 1079 H Total Protein Albumin Lipase Urine Color Urine Appearance Urine pH Ur Specific [place] Urine Protein Urine Glucose (UA) Urine Ketones Urine Blood Urine Nitrite Ur Leukocyte Esterase Ethyl Alcohol 248 Coronavirus (PCR) COVID-19 (JAMAR) COVID-19 Clin Com Influenza Type A (PCR) Influenza Type B (PCR) RSV RNA Qual (PCR) 05/24/21 05/24/21 05/24/21 10:40 10:49 11:28 WBC RBC Hgb Hct MCV MCH MCHC RDW Plt Count MPV Immature Gran % (Auto) Neut % (Auto) Lymph % (Auto) [place] % (Auto) Eos % (Auto) Baso % (Auto) Lymph # (Auto) [place] # (Auto) Eos # (Auto) Baso # (Auto) Abs Immat Gran (auto) Absolute Neuts (auto) Absolute Nucleated RBC Nucleated RBC % (auto) Smear Tech's Comments PT INR APTT VBG pH 7.32 VBG pCO2 36 VBG pO2 51 VBG HCO3 18 L VBG O2 Saturation 72.0 VBG Base Excess -6.4 Sodium Potassium Chloride Carbon Dioxide Anion Gap BUN Creatinine Estim Creat Clear Calc Estimated GFR Random Glucose Lactic Acid Lactic Acid Fup @ 2Hr Lactic Acid Fup @ 4Hr Calcium Magnesium Total Bilirubin Direct Bilirubin AST ALT Alkaline Phosphatase Troponin I High Sens B-Natriuretic Peptide Total Protein Albumin Lipase Urine Color Urine Appearance Urine pH Ur Specific [place] Urine Protein Urine Glucose (UA) Urine Ketones Urine Blood Urine Nitrite Ur Leukocyte Esterase Ethyl Alcohol Coronavirus (PCR) NEGATIVE COVID-19 (JAMAR) Cancelled COVID-19 Clin Com Cancelled Influenza Type A (PCR) NEGATIVE Influenza Type B (PCR) NEGATIVE RSV RNA Qual (PCR) NEGATIVE 05/24/21 05/24/21 05/24/21 15:19 15:44 17:48 WBC RBC Hgb Hct MCV MCH MCHC RDW Plt Count MPV Immature Gran % (Auto) Neut % (Auto) Lymph % (Auto) [place] % (Auto) Eos % (Auto) Baso % (Auto) Lymph # (Auto) [place] # (Auto) Eos # (Auto) Baso # (Auto) Abs Immat Gran (auto) Absolute Neuts (auto) Absolute Nucleated RBC Nucleated RBC % (auto) Smear Tech's Comments PT INR APTT VBG pH VBG pCO2 VBG pO2 VBG HCO3 VBG O2 Saturation VBG Base Excess Sodium Potassium Chloride Carbon Dioxide Anion Gap BUN Creatinine Estim Creat Clear Calc Estimated GFR Random Glucose Lactic Acid Lactic Acid Fup @ 2Hr 5.3 H* Lactic Acid Fup @ 4Hr 5.8 H* Calcium Magnesium Total Bilirubin Direct Bilirubin AST ALT Alkaline Phosphatase Troponin I High Sens B-Natriuretic Peptide Total Protein Albumin Lipase Urine Color STRAW Urine Appearance CLEAR Urine pH 5.5 Ur Specific [place] 1.015 Urine Protein NEG Urine Glucose (UA) NEG Urine Ketones NEG Urine Blood NEG Urine Nitrite NEG Ur Leukocyte Esterase NEG Ethyl Alcohol Coronavirus (PCR) COVID-19 (JAMAR) COVID-19 Clin Com Influenza Type A (PCR) Influenza Type B (PCR) RSV RNA Qual (PCR) 05/25/21 05/25/21 05/25/21 04:46 04:46 08:15 WBC 4.3 L RBC 3.34 L Hgb 10.4 L Hct 30.8 L MCV 92.2 MCH 31.1 MCHC 33.8 RDW 14.4 Plt Count 109 L MPV 10.3 Immature Gran % (Auto) 0.5 H Neut % (Auto) 93.4 H Lymph % (Auto) 3.5 L [place] % (Auto) 2.6 Eos % (Auto) 0.0 Baso % (Auto) 0.0 Lymph # (Auto) 0.2 L [place] # (Auto) 0.1 Eos # (Auto) 0.0 Baso # (Auto) 0.0 Abs Immat Gran (auto) 0.02 Absolute Neuts (auto) 4.0 Absolute Nucleated RBC 0.000 Nucleated RBC % (auto) 0.0 Smear Tech's Comments VERIFIED PT INR APTT VBG pH VBG pCO2 VBG pO2 VBG HCO3 VBG O2 Saturation VBG Base Excess Sodium 130 L Potassium 3.7 Chloride 96 Carbon Dioxide 20 L Anion Gap 18 BUN 24 H Creatinine 0.83 Estim Creat Clear Calc 87.3 Estimated GFR > 60 Random Glucose 140 H D Lactic Acid Lactic Acid Fup @ 2Hr Lactic Acid Fup @ 4Hr Calcium 8.0 L Magnesium 1.3 L* Total Bilirubin Direct Bilirubin AST ALT Alkaline Phosphatase Troponin I High Sens B-Natriuretic Peptide 1774 H Total Protein Albumin Lipase Urine Color Urine Appearance Urine pH Ur Specific [place] Urine Protein Urine Glucose (UA) Urine Ketones Urine Blood Urine Nitrite Ur Leukocyte Esterase Ethyl Alcohol Coronavirus (PCR) COVID-19 (JAMAR) COVID-19 Clin Com Influenza Type A (PCR) Influenza Type B (PCR) RSV RNA Qual (PCR) ECG Interpretation: EKG with atrial fibrillation at 129/Min with right bundle-branch block pattern. Imaging Radiologist's impression: Impressions Chest CTA 05/24/21 10:27 IMPRESSION: 1. No evidence of filling defects to suggest central or segmental pulmonary emboli. 2. Moderate right pleural effusion. Small to moderate left pleural effusion. 3. Opacities in the right hemithorax which could reflect atelectasis or airspace disease. Left lower lobe atelectasis adjacent to the pleural effusion. 4. Small ascites in the upper abdomen. 5. Small contrast refluxing into the IVC suggesting mild elevated right heart pressures. VTE: negative Venous Duplex 05/24/21 10:30 IMPRESSION: No DVT demonstrated in the right lower extremity. Peroneal vein in the calf is not visualized. Severe atherosclerotic disease. Assessment and Plan (1) Atrial fibrillation with rapid ventricular response: Status: Acute (2) Acute congestive heart failure: Qualifiers: Heart failure type: unspecified Qualified Code(s): I50.9 - Heart failure, unspecified Status: Acute (3) Alcohol abuse: Status: Acute (4) COPD exacerbation: Status: Acute High sensitivity troponin 22.2. Cardiac BNP 1039, 1774. Chest CT scan reported to have no filling defects; moderate right pleural effusion and [id number] left pleural effusion. Small amount of ascites in the upper abdomen; small contrast flexing to IV suggesting elevated right heart pressures. Will need echocardiogram for further evaluation. Otherwise, agree with empiric diuretics. Based on LV EF on the echocardiogram will decide further care. Okay to remain on Cardizem for the time being. Start Eliquis for anticoagulation. Will follow. Procedures Date of Service Date of Service: 05/25/21
--- NOTE | 2021-05-25 10:35 | CA_ITS ---
Transthoracic Echocardiogram Patient (Last, First, Middle): Brad Gordon R Gender: Male Date of : 1960 Age: 60 Procedure Date: 05/25/2021 Procedure Type: Transthoracic Echocardiogram [place] [facility] [place]: 170.18 cm Weight: 71.22 kg BSA: 1.82 m2 Heart Rate: bpm BP: 117 / 93 mmHg Title Insurance Sales Representative: VIRIDIANA/KENNY Referring MD: Elda Reddy NP Symptoms: sob Study Quality: Fair ECG Rhythm: Atrial Fibrillation Conclusions: - The left ventricular systolic function is severely decreased. The calculated ejection fraction is 17% by biplane method. - Possible apical thrombus. - The left atrium is severely dilated. - There is mild to moderate mitral valve regurgitation. Findings Procedure Information Contrast agent, definity, is being given per protocol without apparent complications. Left Ventricle Moderately increased left ventricular cavity size. There is mildly increased left ventricular wall thickness. The left ventricular systolic function is severely decreased. The calculated ejection fraction is 17% by biplane method. There is severe global hypokinesis. Diastolic function is indeterminate on the basis of available data. Possible apical thrombus. Wall Motion Rest Echo Findings The basal inferior segment is akinetic. Right Ventricle Mildly increased right ventricular cavity size. There is mildly decreased right ventricular systolic function. TAPSE 1.51cm. Atria The left atrium is severely dilated. The right atrium is moderately dilated. Aortic Valve There is mild calcification of the aortic valve. There is no aortic valve stenosis. There is no aortic valve regurgitation. Mitral Valve There is mild mitral annular calcification. There is mild to moderate mitral valve regurgitation. There is no mitral valve stenosis. Pulmonic Valve The pulmonic valve was not well visualized. Tricuspid Valve Normal tricuspid valve structure. There is mild tricuspid valve regurgitation. The right ventricular systolic pressure is 35 mmHg. Mild pulmonary hypertension is present. Great Vessels The aorta was not well visualized. The aortic annulus is normal in size. Small plaque is seen in the sino tubular ridge. Venous The inferior vena cava is dilated and collapses less than 50% with inspiration. Pericardium/Pleural There is a small loculated pericardial effusion overlying the left atrium and right atrium. Prior Study Comparison Changes noted compared to prior study dated: 03/08/2017. Diminished LVEF. Measurements 2D Linear Measurements IVSd: 1.12 0.6-0.9/0.6-1.0 cm LVIDd: 6.49 3.9-5.3/4.2-5.9 cm LVIDd Index: 3.57 2.4-3.2/2.2-3.1 cm/m2 LVIDs: 5.27 2.0-3.6 cm LVPWd: 1.10 0.7-1.1 cm Ao Root: 3.60 2.1-3.5 cm LA Diam: 4.50 2.7-3.8/3.0-4.0 cm LAIDs Index: 2.47 1.5-2.3 cm/m2 LV Mass: 402.91 67-162/88-224 g LV Mass Index: 221.38 43-95/49-115 g/m2 LVOT Diam: 2.10 3.0+(-)1.3 cm 2D Systolic Function EF 4C: 19.60 >55% EF 2C: 15.60 >55% EF BiP: 17.00 >55% Mitral Valve E'Lateral: 11.30 E'Medial: 3.15 MR Vol - PW Dopp: 29.90 MR VTI: 1.30 MR ERO: 23.00 MR Alias Jame: 0.35 MR RAD: 0.70 Aortic Valve AoV Pk Jame: 1.08 AoV Mn Jame: 0.85 AoV VTI: 0.17 AoV Pk Grad: 5.00 Aov Mn Grad: 3.00 ADAM Cont.VTI: 2.45 LVOT LVOT Pk Jame: 0.84 LVOT Mn Jame: 0.55 LVOT VTI: 0.12 LVOT Pk Grad: 3.00 LVOT Mn Grad: 1.00 LVOT Diam: 2.10 LVOT Area: 3.46 Diastolic Function E'Medial: 3.15 E' Laterial: 11.30 Right Ventricle TAPSE (mm): 15.00 TVS' Jame: 6.00 Tricuspid Valve TR Pk Jame: 2.25 TR Pk Grad: 20.00 RA Press: 15.00 RVSP: 35.00 Great Vessels Aorta Ao Root-2D: 3.60 2.0-3.7 cm Updated in Other Vendor System with Status of Final Reyes Anderson MD electronically signed on 05/25/2021 11:41:36 AM with status of Final
--- NOTE | 2021-05-25 10:44 | PM.IMPN ---
Progress Note: A&P (1) Acute congestive heart failure: Status: Acute (2) Alcohol abuse: Status: Acute (3) COPD exacerbation: Status: Acute Assessment and Plan: 60 year old man admitted with acute congestive heart failure, COPD exacerbation and early alcohol withdrawal Afib rvr. new onset.? Likely secondary to heart failure, alcohol use Continue diltiazem drip Cardiology consult monitor on telemetry COPD exacerbation . exp wheezing levalbuterol d/t tachycardia solumedrol scheduled supplemental oxygen Alcohol abuse on phenobarbitol Hypomagnesemia. Secondary to alcohol use repleted 3gm trend Hyponatremia. Secondary to alcohol use trend DVT prophylaxis with heparin Attending Dr. Diop Subjective Subjective Date of Service: 05/25/21 Review of Systems Follow up CHF, AFIB RVR, Alcohol abuse Better today still in RVR with wheezing Physical Exam Vital Signs: Vital Signs: Last Vital Signs Temp 97 F 05/25/21 06:53 Pulse 78 05/25/21 07:33 Resp 20 05/25/21 06:53 BP 98/69 05/25/21 06:53 Pulse Ox 96 05/25/21 06:53 Body Mass Index 24.5 Appearing in no acute distress lung soundsexp wheezes heart regular rate rhythm, clear S1, S2 positive bowel sounds, abdomen is soft, nontender neuro patient is alert x3, no focal deficits Objective Data Current Medications Generic Name Dose Route Start Last Admin Trade Name Freq PRN Reason Stop Dose Admin Acetaminophen 650 mg 05/24/21 14:24 Acetaminophen 325 Mg Tablet PO Q6H PRN Pain, Mild (Pain Scale 1-3) Furosemide 40 mg 05/24/21 18:00 05/24/21 19:08 Furosemide 40 Mg/4 Ml Vial IVPUSH 40 mg BID@0900,1800 DUANE Administration Protocol Diltiazem HCl 125 mg/ Sodium 125 mls @ 0 mls/hr 05/24/21 11:00 05/24/21 23:02 Chloride IVCONT 10 mg/hr .Q0M DUANE 10 mls/hr Administration Protocol Per Protocol Levalbuterol HCl 1.25 mg 05/24/21 16:00 05/25/21 07:32 Levalbuterol Hcl 1.25 Mg/0.5 Ml Vial.Neb INHALE 1.25 mg RQ4H WHILE AWAKE DUANE Administration Medication 1 each 05/24/21 09:00 No Benzodiazepines MISCELLANE DAILY DUANE Melatonin 6 mg 05/24/21 18:12 Melatonin 3 Mg Tablet PO BEDTIME PRN Sleep Methylprednisolone Sodium Succinate 40 mg 05/24/21 15:45 05/25/21 08:02 Methylprednisolone Sod Succ 40 Mg/Ml Vial IVPUSH 40 mg Q8H DUANE Administration Ondansetron HCl 4 mg 05/24/21 14:24 Ondansetron Hcl 4 Mg/2 Ml Vial IVPUSH Q8H PRN Nausea and Vomiting Phenobarbital 45 mg 05/25/21 09:00 Phenobarbital 15 Mg Tablet PO 05/26/21 21:01 BID DUANE Phenobarbital 15 mg 05/27/21 09:00 Phenobarbital 15 Mg Tablet PO 05/28/21 21:01 BID DUANE Phenobarbital 15 mg 05/29/21 09:00 Phenobarbital 15 Mg Tablet PO 05/30/21 09:01 DAILY DUANE Sodium Chloride 3 ml 05/24/21 16:00 05/25/21 08:01 0.9 % Sodium Chloride Flush 3 Ml Syringe IVFLUSH 3 ml QSHIFT [facility] Administration Labs CBC & Chem 7: 05/25/21 04:46 05/25/21 04:46 Labs: Laboratory Results - last 24 hr 05/24/21 05/24/21 05/24/21 10:39 10:39 10:39 MCV 94.6 MCH 31.3 MCHC 33.0 RDW 14.6 Plt Count 132 L MPV 9.8 Immature Gran % (Auto) 0.3 Neut % (Auto) 67.2 Lymph % (Auto) 26.1 [place] % (Auto) 5.1 Eos % (Auto) 0.5 Baso % (Auto) 0.8 Lymph # (Auto) 1.0 L [place] # (Auto) 0.2 Eos # (Auto) 0.0 Baso # (Auto) 0.0 Abs Immat Gran (auto) 0.01 Absolute Neuts (auto) 2.5 Absolute Nucleated RBC 0.000 Nucleated RBC % (auto) 0.0 Smear Tech's Comments PT 11.2 INR 1.0 APTT 38.9 H VBG pH VBG pCO2 VBG pO2 VBG HCO3 VBG O2 Saturation VBG Base Excess Anion Gap 18 Estim Creat Clear Calc 89.5 Estimated GFR > 60 Random Glucose 93 Lactic Acid Lactic Acid Fup @ 2Hr Lactic Acid Fup @ 4Hr Calcium 7.9 L Magnesium 1.4 L* Total Bilirubin 1.6 H Direct Bilirubin 1.1 H AST 37 ALT 9 Alkaline Phosphatase 74 Troponin I High Sens B-Natriuretic Peptide Total Protein 6.4 L Albumin 3.9 Lipase 36 Urine Color Urine Appearance Urine pH Ur Specific [place] Urine Protein Urine Glucose (UA) Urine Ketones Urine Blood Urine Nitrite Ur Leukocyte Esterase Ethyl Alcohol Coronavirus (PCR) COVID-19 (JAMAR) COVID-19 Clin Com Influenza Type A (PCR) Influenza Type B (PCR) RSV RNA Qual (PCR) 05/24/21 05/24/21 05/24/21 10:39 10:39 10:40 MCV MCH MCHC RDW Plt Count MPV Immature Gran % (Auto) Neut % (Auto) Lymph % (Auto) [place] % (Auto) Eos % (Auto) Baso % (Auto) Lymph # (Auto) [place] # (Auto) Eos # (Auto) Baso # (Auto) Abs Immat Gran (auto) Absolute Neuts (auto) Absolute Nucleated RBC Nucleated RBC % (auto) Smear Tech's Comments PT INR APTT VBG pH VBG pCO2 VBG pO2 VBG HCO3 VBG O2 Saturation VBG Base Excess Anion Gap Estim Creat Clear Calc Estimated GFR Random Glucose Lactic Acid 2.8 H* Lactic Acid Fup @ 2Hr Lactic Acid Fup @ 4Hr Calcium Magnesium Total Bilirubin Direct Bilirubin AST ALT Alkaline Phosphatase Troponin I High Sens 22.2 B-Natriuretic Peptide 1079 H Total Protein Albumin Lipase Urine Color Urine Appearance Urine pH Ur Specific [place] Urine Protein Urine Glucose (UA) Urine Ketones Urine Blood Urine Nitrite Ur Leukocyte Esterase Ethyl Alcohol 248 Coronavirus (PCR) COVID-19 (JAMAR) COVID-19 Clin Com Influenza Type A (PCR) Influenza Type B (PCR) RSV RNA Qual (PCR) 05/24/21 05/24/21 05/24/21 10:40 10:49 11:28 MCV MCH MCHC RDW Plt Count MPV Immature Gran % (Auto) Neut % (Auto) Lymph % (Auto) [place] % (Auto) Eos % (Auto) Baso % (Auto) Lymph # (Auto) [place] # (Auto) Eos # (Auto) Baso # (Auto) Abs Immat Gran (auto) Absolute Neuts (auto) Absolute Nucleated RBC Nucleated RBC % (auto) Smear Tech's Comments PT INR APTT VBG pH 7.32 VBG pCO2 36 VBG pO2 51 VBG HCO3 18 L VBG O2 Saturation 72.0 VBG Base Excess -6.4 Anion Gap Estim Creat Clear Calc Estimated GFR Random Glucose Lactic Acid Lactic Acid Fup @ 2Hr Lactic Acid Fup @ 4Hr Calcium Magnesium Total Bilirubin Direct Bilirubin AST ALT Alkaline Phosphatase Troponin I High Sens B-Natriuretic Peptide Total Protein Albumin Lipase Urine Color Urine Appearance Urine pH Ur Specific [place] Urine Protein Urine Glucose (UA) Urine Ketones Urine Blood Urine Nitrite Ur Leukocyte Esterase Ethyl Alcohol Coronavirus (PCR) NEGATIVE COVID-19 (JAMAR) Cancelled COVID-19 Clin Com Cancelled Influenza Type A (PCR) NEGATIVE Influenza Type B (PCR) NEGATIVE RSV RNA Qual (PCR) NEGATIVE 05/24/21 05/24/21 05/24/21 15:19 15:44 17:48 MCV MCH MCHC RDW Plt Count MPV Immature Gran % (Auto) Neut % (Auto) Lymph % (Auto) [place] % (Auto) Eos % (Auto) Baso % (Auto) Lymph # (Auto) [place] # (Auto) Eos # (Auto) Baso # (Auto) Abs Immat Gran (auto) Absolute Neuts (auto) Absolute Nucleated RBC Nucleated RBC % (auto) Smear Tech's Comments PT INR APTT VBG pH VBG pCO2 VBG pO2 VBG HCO3 VBG O2 Saturation VBG Base Excess Anion Gap Estim Creat Clear Calc Estimated GFR Random Glucose Lactic Acid Lactic Acid Fup @ 2Hr 5.3 H* Lactic Acid Fup @ 4Hr 5.8 H* Calcium Magnesium Total Bilirubin Direct Bilirubin AST ALT Alkaline Phosphatase Troponin I High Sens B-Natriuretic Peptide Total Protein Albumin Lipase Urine Color STRAW Urine Appearance CLEAR Urine pH 5.5 Ur Specific [place] 1.015 Urine Protein NEG Urine Glucose (UA) NEG Urine Ketones NEG Urine Blood NEG Urine Nitrite NEG Ur Leukocyte Esterase NEG Ethyl Alcohol Coronavirus (PCR) COVID-19 (JAMAR) COVID-19 Clin Com Influenza Type A (PCR) Influenza Type B (PCR) RSV RNA Qual (PCR) 05/25/21 05/25/21 05/25/21 04:46 04:46 08:15 MCV 92.2 MCH 31.1 MCHC 33.8 RDW 14.4 Plt Count 109 L MPV 10.3 Immature Gran % (Auto) 0.5 H Neut % (Auto) 93.4 H Lymph % (Auto) 3.5 L [place] % (Auto) 2.6 Eos % (Auto) 0.0 Baso % (Auto) 0.0 Lymph # (Auto) 0.2 L [place] # (Auto) 0.1 Eos # (Auto) 0.0 Baso # (Auto) 0.0 Abs Immat Gran (auto) 0.02 Absolute Neuts (auto) 4.0 Absolute Nucleated RBC 0.000 Nucleated RBC % (auto) 0.0 Smear Tech's Comments VERIFIED PT INR APTT VBG pH VBG pCO2 VBG pO2 VBG HCO3 VBG O2 Saturation VBG Base Excess Anion Gap 18 Estim Creat Clear Calc 87.3 Estimated GFR > 60 Random Glucose 140 H D Lactic Acid Lactic Acid Fup @ 2Hr Lactic Acid Fup @ 4Hr Calcium 8.0 L Magnesium 1.3 L* Total Bilirubin Direct Bilirubin AST ALT Alkaline Phosphatase Troponin I High Sens B-Natriuretic Peptide 1774 H Total Protein Albumin Lipase Urine Color Urine Appearance Urine pH Ur Specific [place] Urine Protein Urine Glucose (UA) Urine Ketones Urine Blood Urine Nitrite Ur Leukocyte Esterase Ethyl Alcohol Coronavirus (PCR) COVID-19 (JAMAR) COVID-19 Clin Com Influenza Type A (PCR) Influenza Type B (PCR) RSV RNA Qual (PCR) Quality Stroke Does the patient have a stroke diagnosis?: No VTE Prior VTE?: No VTE Risk Level:: Medical - moderate - high VTE Device Contraindication: Treatment Not Indicated VTE Drug Contraindication: N/A - Med Ordered
[2021-05-25] MEDS: PHENobarbitaL 15 MG TABLET 45 MG PO ×2 (11:16→20:49)
[2021-05-25] MEDS: Furosemide 40 MG/4 ML VIAL IVPUSH ×2 (11:16→17:16)
[2021-05-25] MEDS: Magnesium Sulfate/H2O 2 GM/50 ML PIGGYBACK IV (11:19)
--- NOTE | 2021-05-25 11:21 | MHC.CM.PN ---
CM MET WITH PT WHO REPORTS HE LIVES WITH HIS SISTER AND IS INDEPENDENT WITH ALL CARE AND MOBILITY. PT DENIES USE OF DME AND HAS NO SERVICES. PT REPORTS HIS PCP, MAINOR KAPOOR, IS AT [facility] [place]. PT STATED HE DID A HCP IN THE PAST BUT DOES NOT KNOW WHERE IT IS. PT COMPLETED A NEW HCP TODAY NAMING HIS NEPHEW, ROSANGELA VEGAS, HIS AGENT. CURRENT DC PLAN IS HOME WITH NO SERVICES. PT WILL SELF ARRANGE TRANSPORT PT ALSO REPORTS BEING INTERESTED IN CHANGING PCPS IN THE NEAR FUTURE. A LIST OF PCPS AT [facility] IN [place] WAS PROVIDED PER PT REQUEST.
[2021-05-25 11:54] LABS: B Type Natriuretic Peptide 1770 pg/mL (<100)
[2021-05-25] MEDS: Digoxin 0.5 MG/2 ML AMPUL 0.125 MG IVPUSH ×2 (13:34→17:16)
[2021-05-25] MEDS: Metoprolol Tartrate 25 MG TABLET PO ×3 (13:37→20:49)
[2021-05-25] MEDS: Apixaban 5 MG TABLET PO (20:49)
[2021-05-26] VITALS (12 sets, daily range): BP systolic 100–148; BP diastolic 64–104; PULSE 68–122; RESP 15–22; TEMP 35.7–36.8; O2SAT 88–97
[2021-05-26] MEDS: Digoxin 0.5 MG/2 ML AMPUL 0.125 MG IVPUSH
[2021-05-26] MEDS: PHENobarbitaL 15 MG TABLET 45 MG PO ×2 (06:08→21:39)
[2021-05-26 06:53] LABS: Hematocrit 31.8 % (42-52); Hemoglobin 10.4 g/dl (14.0-18.0); Mean Corpuscular HGB Conc 32.7 g/dl (31.0-36.0); Mean Corpuscular Hemoglobin 30.7 pg (27.0-33.0); Mean Corpuscular Volume 93.8 fL (80-98); Mean Platelet Volume 10.5 fL (9.4-12.4); Platelet Count 101 X10*3/uL (160-400); Red Blood Count 3.39 X10*6/uL (4.60-5.80); Red Cell Distribution Width 14.7 % (11.0-16.0); White Blood Count 8.3 X10*3/uL (4.8-10.8)
[2021-05-26 07:04] LABS: Anion Gap 17 (12-20); Blood Urea Nitrogen 24 mg/dL (9-16); Carbon Dioxide 23 mmol/L (22-29); Chloride 94 mmol/L (96-108); Creatinine Clr Calc Pharmacy 85.3; Estimated Glomerular Filt Rate > 60; Glucose Random 126 mg/dL (60-115); Potassium 3.7 mmol/L (3.3-5.1); Sodium 130 mmol/L (135-145)
[2021-05-26] MEDS: 0.9 % Sodium Chloride Flush 3 ML SYRINGE IVFLUSH ×3 (09:00→23:51)
[2021-05-26] MEDS: Apixaban 5 MG TABLET PO ×2 (09:00→19:33)
[2021-05-26] MEDS: predniSONE 20 MG TABLET 40 MG PO (09:00)
[2021-05-26] MEDS: Furosemide 40 MG/4 ML VIAL IVPUSH ×2 (09:01→18:06)
[2021-05-26] MEDS: Metoprolol Tartrate 25 MG TABLET PO ×4 (09:01→21:38)
[2021-05-26 09:08] LABS: B Type Natriuretic Peptide 2542 pg/mL (<100)
[2021-05-26] MEDS: PHENobarbitaL sodium 130 MG/ML VIAL IM ×2 (10:13→19:29)
--- NOTE | 2021-05-26 11:11 | MHC.CM.PN ---
Per ROUNDS discussion, Patient is not yet medically cleared for dc (IV Lasix). Home is the goal for dc and CM will follow for possible need to adjust the dc plan.
--- NOTE | 2021-05-26 11:42 | PM.PNCARD ---
Subjective Subjective Date of Service: 05/26/21 Interval history: Patient seems to be in alcohol withdrawal and trying to leave while I am talking to him. Denies any cardiac symptoms. Review of Systems Review of Systems Yes all other systems are reviewed and are negative Cardiovascular: Reports as per HPI, Reports no additional cardiovascular complaints, Denies acrocyanosis, Denies cool extremities, Denies painful fingertips, Denies chest pain, Denies chest pain at rest, Denies diaphoresis, Denies syncope, Denies irregular heart rhythm, Denies claudication, Denies leg edema, Denies lightheadedness, Denies palpitations and Reports dyspnea Respiratory: Reports dyspnea Denies syncope Endocrine: Denies palpitations Physical Exam Vital Signs: Last Vital Signs Temp 97 F 05/26/21 11:17 Pulse 93 05/26/21 11:17 Resp 20 05/26/21 11:17 BP 148/78 H 05/26/21 11:17 Pulse Ox 96 05/26/21 11:17 Body Mass Index 24.5 Const General: cooperative and no acute distress [facility] Other: Unremarkable Neck Neck: Yes normal visual inspection Chest Chest palpation & inspection: normal inspection of the chest Resp Other: Diminished breath sounds bilaterally with scattered wheezing. Cardio Jugular venous distension: no JVD Palpation: normal PMI Heart sounds: S1 normal heart sound present, S2 normal heart sound present, no gallops, no murmurs and no rubs GI Palpation (GI): Soft to palpation Back/Spine/Pelvis Other: unremarkable Skin General skin exam: no rashes or lesions noted Neuro Cranial nerves: Yes Other cranial nerve findings present Extrem General: Yes no clubbing, cyanosis or edema Psych Mental Status: other Results Labs and Meds Result diagrams: 05/26/21 05:20 05/26/21 05:20 Lab results: Laboratory Results - last 24 hr 05/25/21 05/26/21 05/26/21 11:27 05:20 05:20 WBC 8.3 RBC 3.39 L Hgb 10.4 L Hct 31.8 L MCV 93.8 MCH 30.7 MCHC 32.7 RDW 14.7 Plt Count 101 L MPV 10.5 Absolute Nucleated RBC 0.000 Nucleated RBC % (auto) 0.0 Sodium 130 L Potassium 3.7 Chloride 94 L Carbon Dioxide 23 Anion Gap 17 BUN 24 H Creatinine 0.85 Estim Creat Clear Calc 85.3 Estimated GFR > 60 Random Glucose 126 H Calcium 8.0 L B-Natriuretic Peptide 1770 H 05/26/21 05:20 WBC RBC Hgb Hct MCV MCH MCHC RDW Plt Count MPV Absolute Nucleated RBC Nucleated RBC % (auto) Sodium Potassium Chloride Carbon Dioxide Anion Gap BUN Creatinine Estim Creat Clear Calc Estimated GFR Random Glucose Calcium B-Natriuretic Peptide 2542 H ECG Interpretation: Patient removed telemetry Progress Note: A&P Assessment and plan (1) Atrial fibrillation with rapid ventricular response: Status: Acute (2) Acute congestive heart failure: Status: Acute (3) Alcohol abuse: Status: Acute (4) COPD exacerbation: Status: Acute Assessment and Plan: High sensitivity troponin 22.2. Cardiac BNP 1039, 1774. Chest CT scan reported to have no filling defects; moderate right pleural effusion and [id number] left pleural effusion. Small amount of ascites in the upper abdomen; small contrast flexing to IV suggesting elevated right heart pressures. Echocardiogram with markedly diminished LVEF. Possible apical thrombus. Unfortunately, patient is withdrawing from alcohol and hence has minimal understanding. Hence that will need to be treated accordingly. Discussed with hospitalist. From cardiac, beta-blockers can be used for rate control. He is not a candidate for HU cardioversion in this setting. Empiric anticoagulation considering the atrial fibrillation as well as possible thrombus. We will follow-up with you. Fall Risk Details Current Medications: Current Medications Generic Name Dose Route Start Last Admin Trade Name Freq PRN Reason Stop Dose Admin Acetaminophen 650 mg 05/24/21 14:24 Acetaminophen 325 Mg Tablet PO Q6H PRN Pain, Mild (Pain Scale 1-3) Apixaban 5 mg 05/25/21 21:00 05/26/21 09:00 Apixaban 5 Mg Tablet PO 5 mg BID DAUNE Administration Furosemide 40 mg 05/24/21 18:00 05/26/21 09:01 Furosemide 40 Mg/4 Ml Vial IVPUSH 40 mg BID@0900,1800 DUANE Administration Protocol Levalbuterol HCl 1.25 mg 05/24/21 16:00 05/26/21 09:14 Levalbuterol Hcl 1.25 Mg/0.5 Ml Vial.Neb INHALE 1.25 mg RQ4H WHILE AWAKE DUANE Administration Medication 1 each 05/24/21 09:00 No Benzodiazepines MISCELLANE DAILY DUANE Melatonin 6 mg 05/24/21 18:12 Melatonin 3 Mg Tablet PO BEDTIME PRN Sleep Metoprolol Tartrate 25 mg 05/25/21 13:00 05/26/21 09:01 Metoprolol Tartrate 25 Mg Tablet PO 25 mg QID DUANE Administration Protocol Ondansetron HCl 4 mg 05/24/21 14:24 Ondansetron Hcl 4 Mg/2 Ml Vial IVPUSH Q8H PRN Nausea and Vomiting Phenobarbital 45 mg 05/25/21 09:00 05/26/21 06:08 Phenobarbital 15 Mg Tablet PO 05/26/21 21:01 45 mg BID DUANE Administration Phenobarbital 15 mg 05/27/21 09:00 Phenobarbital 15 Mg Tablet PO 05/28/21 21:01 BID DUANE Phenobarbital 15 mg 05/29/21 09:00 Phenobarbital 15 Mg Tablet PO 05/30/21 09:01 DAILY DUANE Sodium Chloride 3 ml 05/24/21 16:00 05/26/21 09:00 0.9 % Sodium Chloride Flush 3 Ml Syringe IVFLUSH 3 ml QSHIFT DUANE Administration Time Spent With Patient Time: Total time spent is greater than 50% in coordination of care (as documented) at patient's floor/unit and/or counseling patient: Time with patient: less than 15 minutes Progress Note: Quality Stroke Does the patient have a stroke diagnosis?: No Procedures Date of Service Date of Service: 05/26/21
--- NOTE | 2021-05-26 11:57 | PC.NURSE ---
Late entry: 929 Pt restless in room, stating he is leaving. disoriented/confused. Removes telemonitor. Stating he is in the [facility] and was recently discharged from [facility]. Pt sob when talking, sats 94% on room air. Dr Barnard notified and in to speak with pt. Phenobarbital 130mg IM ordered and given at 1013 with some effect. Telemonitor reapplied and Pt assisted into bed, unsteady gait. Bed alarm on for pt safety. Telesitter in room. Pt slept for about half hour and is currently eating lunch. Will continue to monitor
--- NOTE | 2021-05-26 12:57 | ECG_ITS ---
Test Reason : AFIB W/RVR Blood Pressure : / mmHG Vent. Rate : 127 BPM Atrial Rate : 153 BPM P-R Int : 000 ms QRS Dur : 144 ms QT Int : 392 ms P-R-T Axes : 000 019 075 degrees QTc Int : 569 ms Atrial fibrillation with rapid ventricular response Right bundle branch block Possible Inferior infarct (cited on or before 24-MAY-2021) Abnormal ECG When compared with ECG of 24-MAY-2021 10:46, Nonspecific T wave abnormality now evident in Lateral leads Referred By: Teresa Barnard Electronically Signed By:CHRIS ALEJANDRO
--- NOTE | 2021-05-26 13:40 | P.PNIM_ITS ---
Subjective Subjective Date of Service: 05/26/21 Interval History: the patient was seen and evaluated this morning Walking in his room and trying to leave it, mildly anxious about being in the hospital Denies any fever, chills or shortness of breath No reported other overnight events. Systemic review: No fever, chills but reports feeling unsteady and is my not clear No chest pain, palpitation No shortness of breath or coughing No abdominal pain, nausea or vomiting No urinary symptoms No any rash or wounds Physical Exam Vital Signs: Vital Signs: Last Vital Signs Temp 97 F 05/26/21 11:17 Pulse 88 05/26/21 12:47 Resp 20 05/26/21 11:17 BP 148/78 H 05/26/21 11:17 Pulse Ox 96 05/26/21 11:17 Body Mass Index 24.5 Const: Other: Constitutional : Alert, disoriented and mildly anxious Neck : Normal inspection, Supple Cardiovascular : RRR, S1 S2, no lower extremity edema Respiratory : Fair bilateral air entry, basal bilateral crackles with mild expiratory wheezes Gastrointestinal: soft, lax, Normal bowel sounds, Non tender Skin : Warm, Dry Neurological : Alert & oriented to self but disoriented about time and place No focal deficit Objective Data Active Medications Acetaminophen (Acetaminophen 325 Mg Tablet) 650 mg PO Q6H PRN PRN Reason: Pain, Mild (Pain Scale 1-3) Apixaban (Apixaban 5 Mg Tablet) 5 mg PO BID [facility] Last Admin: 05/26/21 09:00 Dose: 5 mg Documented by: NANCY Furosemide (Furosemide 40 Mg/4 Ml Vial) 40 mg IVPUSH BID@0900,1800 [facility]; Protocol Last Admin: 05/26/21 09:01 Dose: 40 mg Documented by: NANCY Levalbuterol HCl (Levalbuterol Hcl 1.25 Mg/0.5 Ml Vial.Neb) 1.25 mg INHALE RQ4H WHILE AWAKE [facility] Last Admin: 05/26/21 12:44 Dose: 1.25 mg Documented by: LOW Medication (No Benzodiazepines) 1 each MISCELLANE DAILY [facility] Melatonin (Melatonin 3 Mg Tablet) 6 mg PO BEDTIME PRN PRN Reason: Sleep Metoprolol Tartrate (Metoprolol Tartrate 25 Mg Tablet) 25 mg PO QID [facility]; Protocol Last Admin: 05/26/21 09:01 Dose: 25 mg Documented by: NANCY Ondansetron HCl (Ondansetron Hcl 4 Mg/2 Ml Vial) 4 mg IVPUSH Q8H PRN PRN Reason: Nausea and Vomiting Phenobarbital (Phenobarbital 15 Mg Tablet) 45 mg PO BID [facility] Stop: 05/26/21 21:01 Last Admin: 05/26/21 06:08 Dose: 45 mg Documented by: BREONNA Phenobarbital (Phenobarbital 15 Mg Tablet) 15 mg PO BID [facility] Stop: 05/28/21 21:01 Phenobarbital (Phenobarbital 15 Mg Tablet) 15 mg PO DAILY [facility] Stop: 05/30/21 09:01 Sodium Chloride (0.9 % Sodium Chloride Flush 3 Ml Syringe) 3 ml IVFLUSH QSHIFT [facility] Last Admin: 05/26/21 09:00 Dose: 3 ml Documented by: NANCY Labs CBC & Chem 7: 05/26/21 05:20 05/26/21 05:20 Labs: Laboratory Results - last 24 hr 05/26/21 05/26/21 05/26/21 05:20 05:20 05:20 MCV 93.8 MCH 30.7 MCHC 32.7 RDW 14.7 Plt Count 101 L MPV 10.5 Absolute Nucleated RBC 0.000 Nucleated RBC % (auto) 0.0 Anion Gap 17 Estim Creat Clear Calc 85.3 Estimated GFR > 60 Random Glucose 126 H Calcium 8.0 L B-Natriuretic Peptide 2542 H Microbiology Microbiology Results: Microbiology 05/24/21 10:39 Blood Culture - Preliminary Blood - Venous No growth after 48 hours. 05/24/21 10:39 Blood Culture - Preliminary Blood - Venous No growth after 48 hours. Assessment and Plan (1) Acute congestive heart failure: Status: Acute (2) Alcohol withdrawal: Status: Acute (3) COPD exacerbation: Status: Acute (4) Hypomagnesemia: Status: Acute Assessment and Plan: 60 year old man admitted with acute congestive heart failure, COPD exacerbation and early alcohol withdrawal Afib rvr. new onset.? secondary to heart failure, alcohol use Better controlled today Continue metoprolol Cardiology input appreciated monitor on telemetry Acute CHF exacerbation Cardiomyopathy Echo showed EF of 17% Likely related to chronic alcohol abuse Optimize medications Cardiology following COPD exacerbation Improved exp wheezing levalbuterol d/t tachycardia Change steroids to prednisone supplemental oxygen Alcohol withdrawal To give extra doses of phenobarbitol Hypomagnesemia. Secondary to alcohol use repleted 3gm trend Hyponatremia. Secondary to alcohol use trend DVT prophylaxis with heparin a Quality Stroke Does the patient have a stroke diagnosis?: No VTE Prior VTE?: No VTE Risk Level:: Medical - moderate - high VTE Device Contraindication: Treatment Not Indicated VTE Drug Contraindication: N/A - Med Ordered
[2021-05-26] MEDS: PHENobarbitaL sodium 130 MG/ML VIAL 260 MG IM (13:48)
--- NOTE | 2021-05-26 18:03 | MHC.RECOVSUP ---
Recovery Support note: Patient is a 60 year old [place]anian speaking male who presented to [facility] ED due to SOB and leg swelling. Patient was medically admitted. This screenplay writer met with patient to discuss his alcohol use and recovery supports. Patient reports he has had periods of sobriety however was unable to elaborate. Patient reports he has been to detox however started drinking because he would get the shakes. Patient reports I drink because I shake, but I shake because I drink. Discussed with patient how it is unlikely that the shaking is related to his drinking if it is occurring long after a detox admission. Patient acknowledged and reports his doctor thinks it may be neurological. Patient reports a [place] tree fell on his head at some point. Patient reports he has an OUI from 10/2019 and that he is still trying to get his license back. Patient reports his sister wants to kick him out due to his drinking. Patient acknowledges that drinking is affecting many aspects of his life and health and that he wants to maintain sobriety. Patient reports he has utilized AA over the phone and found it helpful. Patient expresses that he prefers face to face supports. Discussed recovery coaching with patient and he was agreeable to meeting with a power and recovery supervisor. Patient was able to engage with this screenplay writer however presented as confused at times. Patient would benefit from a follow up by the Recovery Support Team and a Digital Analyst to further discuss his recovery and available supports.
[2021-05-27] VITALS (13 sets, daily range): BP systolic 84–152; BP diastolic 60–81; PULSE 60–118; RESP 18–20; TEMP 36.1–36.6; O2SAT 85–98
--- NOTE | 2021-05-27 05:30 | MHC.PIE ---
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 NOTIFIED.ORDER FOR PHENOBARB 130 MG IM X 1 GIVEN. E.MED GIVEN,PT ASSISTED TO BED.RESTING AT THIS TIME.
[2021-05-27] MEDS: PHENobarbitaL sodium 130 MG/ML VIAL IM (05:45)
[2021-05-27 06:59] LABS: B Type Natriuretic Peptide 3092 pg/mL (<100)
[2021-05-27 07:10] LABS: Anion Gap 16 (12-20); Blood Urea Nitrogen 26 mg/dL (9-16); Carbon Dioxide 24 mmol/L (22-29); Chloride 95 mmol/L (96-108); Creatinine Clr Calc Pharmacy 87.3; Estimated Glomerular Filt Rate > 60; Glucose Random 103 mg/dL (60-115); Potassium 3.6 mmol/L (3.3-5.1); Sodium 131 mmol/L (135-145)
[2021-05-27 07:15] LABS: Magnesium 1.7 mg/dL (1.6-2.6)
[2021-05-27] MEDS: Folic Acid 1 MG TABLET PO (10:09)
[2021-05-27] MEDS: PHENobarbitaL 15 MG TABLET PO ×2 (10:09→20:50)
[2021-05-27] MEDS: Multivitamin TABLET 1 TAB PO (10:09)
[2021-05-27] MEDS: Metoprolol Tartrate 25 MG TABLET PO ×4 (10:09→20:50)
[2021-05-27] MEDS: Apixaban 5 MG TABLET PO ×2 (10:09→20:51)
[2021-05-27] MEDS: Thiamine HCL 100 MG TABLET PO (10:09)
[2021-05-27] MEDS: Furosemide 40 MG/4 ML VIAL IVPUSH ×2 (10:09→17:16)
[2021-05-27] MEDS: metOLazone 2.5 MG TABLET PO (10:09)
[2021-05-27] MEDS: 0.9 % Sodium Chloride Flush 3 ML SYRINGE IVFLUSH ×3 (10:09→20:52)
--- NOTE | 2021-05-27 10:48 | PM.PNCARD ---
Subjective Subjective Date of Service: 05/27/21 Interval history: Still in alcohol withdrawal. Sleepy. Denies any cardiac symptoms. Review of Systems Review of Systems Unable to obtain. Physical Exam Vital Signs: Last Vital Signs Temp 97.8 F 05/27/21 10:05 Pulse 89 05/27/21 10:09 Resp 18 05/27/21 03:05 BP 134/79 05/27/21 10:05 Pulse Ox 92 05/27/21 10:42 Body Mass Index 24.5 Const General: no acute distress HENMT Other: Unremarkable Neck Neck: Yes normal visual inspection Chest Chest palpation & inspection: normal inspection of the chest Resp Other: Diminished breath sounds bilaterally with scattered wheezing. Cardio Jugular venous distension: no JVD Palpation: normal PMI Heart sounds: S1 normal heart sound present, S2 normal heart sound present, no gallops, no murmurs and no rubs GI Palpation (GI): Soft to palpation Back/Spine/Pelvis Other: unremarkable Skin General skin exam: no rashes or lesions noted Neuro Cranial nerves: Yes Other cranial nerve findings present Extrem General: Yes no clubbing, cyanosis or edema Psych Mental Status: other Results Labs and Meds Result diagrams: 05/26/21 05:20 05/27/21 05:30 Lab results: Laboratory Results - last 24 hr 05/27/21 05/27/21 05/27/21 05:30 05:30 05:30 Sodium 131 L Potassium 3.6 Chloride 95 L Carbon Dioxide 24 Anion Gap 16 BUN 26 H Creatinine 0.83 Estim Creat Clear Calc 87.3 Estimated GFR > 60 Random Glucose 103 Calcium 8.0 L Magnesium 1.7 B-Natriuretic Peptide 3092 H Progress Note: A&P Assessment and plan (1) Atrial fibrillation with rapid ventricular response: Status: Acute (2) Acute congestive heart failure: Status: Acute (3) Alcohol abuse: Status: Acute (4) COPD exacerbation: Status: Acute Assessment and Plan: High sensitivity troponin 22.2. Cardiac BNP 1039, 1774. Chest CT scan reported to have no filling defects; moderate right pleural effusion and [id number] left pleural effusion. Small amount of ascites in the upper abdomen; small contrast flexing to IV suggesting elevated right heart pressures. Echocardiogram with markedly diminished LVEF. Possible apical thrombus. Unfortunately, patient is withdrawing from alcohol and hence has minimal understanding. Hence that will need to be treated accordingly. Discussed with hospitalist. From cardiac, beta-blockers can be used for rate control. He is not a candidate for HU/ cardioversion in this setting. Empiric anticoagulation considering the atrial fibrillation as well as possible thrombus. We will follow-up with you. Fall Risk Details Current Medications: Current Medications Generic Name Dose Route Start Last Admin Trade Name Freq PRN Reason Stop Dose Admin Acetaminophen 650 mg 05/24/21 14:24 Acetaminophen 325 Mg Tablet PO Q6H PRN Pain, Mild (Pain Scale 1-3) Apixaban 5 mg 05/25/21 21:00 05/27/21 10:09 Apixaban 5 Mg Tablet PO 5 mg BID DUANE Administration Folic Acid 1 mg 05/27/21 09:00 05/27/21 10:09 Folic Acid 1 Mg Tablet PO 1 mg DAILY DUANE Administration Furosemide 40 mg 05/24/21 18:00 05/27/21 10:09 Furosemide 40 Mg/4 Ml Vial IVPUSH 40 mg BID@0900,1800 DUANE Administration Protocol Levalbuterol HCl 1.25 mg 05/24/21 16:00 05/27/21 09:29 Levalbuterol Hcl 1.25 Mg/0.5 Ml Vial.Neb INHALE Not Given RQ4H WHILE AWAKE DUANE Medication 1 each 05/24/21 09:00 No Benzodiazepines MISCELLANE DAILY DUANE Melatonin 6 mg 05/24/21 18:12 Melatonin 3 Mg Tablet PO BEDTIME PRN Sleep Metoprolol Tartrate 25 mg 05/25/21 13:00 05/27/21 10:09 Metoprolol Tartrate 25 Mg Tablet PO 25 mg QID DUANE Administration Protocol Multivitamins/Vitamin C 1 tab 05/27/21 09:00 05/27/21 10:09 Multivitamin Tablet PO 1 tab DAILY DUANE Administration Ondansetron HCl 4 mg 05/24/21 14:24 Ondansetron Hcl 4 Mg/2 Ml Vial IVPUSH Q8H PRN Nausea and Vomiting Phenobarbital 15 mg 05/27/21 09:00 05/27/21 10:09 Phenobarbital 15 Mg Tablet PO 05/28/21 21:01 15 mg BID DUANE Administration Phenobarbital 15 mg 05/29/21 09:00 Phenobarbital 15 Mg Tablet PO 05/30/21 09:01 DAILY DUANE Sodium Chloride 3 ml 05/24/21 16:00 05/27/21 10:09 0.9 % Sodium Chloride Flush 3 Ml Syringe IVFLUSH 3 ml QSHIFT DUANE Administration Thiamine HCl 100 mg 05/27/21 09:00 05/27/21 10:09 Thiamine Hcl 100 Mg Tablet PO 100 mg DAILY DUANE Administration Time Spent With Patient Time: Total time spent is greater than 50% in coordination of care (as documented) at patient's floor/unit and/or counseling patient: Time with patient: less than 15 minutes Progress Note: Quality Stroke Does the patient have a stroke diagnosis?: No Procedures Date of Service Date of Service: 05/27/21
--- NOTE | 2021-05-27 13:28 | HO.PM.IMPN ---
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 Systemic review: No fever, chills but reports feeling unsteady and is my not clear No chest pain, palpitation No shortness of breath or coughing No abdominal pain, nausea or vomiting No urinary symptoms No any rash or wounds Physical Exam Vital Signs: Vital Signs: Last Vital Signs Temp 97.4 F 05/27/21 11:07 Pulse 70 05/27/21 11:21 Resp 20 05/27/21 11:07 BP 111/81 05/27/21 11:07 Pulse Ox 92 05/27/21 11:07 Body Mass Index 24.5 Const: Other: Constitutional : Alert, disoriented and mildly anxious, interactive with no aggressiveness Neck : Normal inspection, Supple Cardiovascular : RRR, S1 S2, no lower extremity edema Respiratory : Fair bilateral air entry, basal bilateral crackles with mild expiratory wheezes Gastrointestinal: soft, lax, Normal bowel sounds, Non tender Skin : Warm, Dry Neurological : Alert & oriented to self but disoriented about time and place No focal deficit Objective Data Active Medications Acetaminophen (Acetaminophen 325 Mg Tablet) 650 mg PO Q6H PRN PRN Reason: Pain, Mild (Pain Scale 1-3) Apixaban (Apixaban 5 Mg Tablet) 5 mg PO BID [facility] Last Admin: 05/27/21 10:09 Dose: 5 mg Documented by: DIDI Folic Acid (Folic Acid 1 Mg Tablet) 1 mg PO DAILY [facility] Last Admin: 05/27/21 10:09 Dose: 1 mg Documented by: DDII Furosemide (Furosemide 40 Mg/4 Ml Vial) 40 mg IVPUSH BID@0900,1800 [facility]; Protocol Last Admin: 05/27/21 10:09 Dose: 40 mg Documented by: DIDI Levalbuterol HCl (Levalbuterol Hcl 1.25 Mg/0.5 Ml Vial.Neb) 1.25 mg INHALE RQ4H WHILE AWAKE [facility] Last Admin: 05/27/21 11:23 Dose: 1.25 mg Documented by: JOAQUÍN Medication (No Benzodiazepines) 1 each MISCELLANE DAILY [facility] Melatonin (Melatonin 3 Mg Tablet) 6 mg PO BEDTIME PRN PRN Reason: Sleep Metoprolol Tartrate (Metoprolol Tartrate 25 Mg Tablet) 25 mg PO QID [facility]; Protocol Last Admin: 05/27/21 13:26 Dose: 25 mg Documented by: DIDI Multivitamins/Vitamin C (Multivitamin Tablet) 1 tab PO DAILY [facility] Last Admin: 05/27/21 10:09 Dose: 1 tab Documented by: DIDI Ondansetron HCl (Ondansetron Hcl 4 Mg/2 Ml Vial) 4 mg IVPUSH Q8H PRN PRN Reason: Nausea and Vomiting Phenobarbital (Phenobarbital 15 Mg Tablet) 15 mg PO BID [facility] Stop: 05/28/21 21:01 Last Admin: 05/27/21 10:09 Dose: 15 mg Documented by: DIDI Phenobarbital (Phenobarbital 15 Mg Tablet) 15 mg PO DAILY [facility] Stop: 05/30/21 09:01 Sodium Chloride (0.9 % Sodium Chloride Flush 3 Ml Syringe) 3 ml IVFLUSH QSHIFT [facility] Last Admin: 05/27/21 10:09 Dose: 3 ml Documented by: DIDI Thiamine HCl (Thiamine Hcl 100 Mg Tablet) 100 mg PO DAILY [facility] Last Admin: 05/27/21 10:09 Dose: 100 mg Documented by: DDII Labs CBC & Chem 7: 05/26/21 05:20 05/27/21 05:30 Labs: Laboratory Results - last 24 hr 05/27/21 05/27/21 05/27/21 05:30 05:30 05:30 Anion Gap 16 Estim Creat Clear Calc 87.3 Estimated GFR > 60 Random Glucose 103 Calcium 8.0 L Magnesium 1.7 B-Natriuretic Peptide 3092 H Microbiology Microbiology Results: Microbiology 05/24/21 10:39 Blood Culture - Preliminary Blood - Venous No growth after 48 hours. 05/24/21 10:39 Blood Culture - Preliminary Blood - Venous No growth after 48 hours. Assessment and Plan (1) Alcohol withdrawal: Status: Acute (2) Acute congestive heart failure: Status: Acute (3) Alcohol abuse: Status: Acute (4) COPD exacerbation: Status: Acute Assessment and Plan: 60 year old man admitted with acute congestive heart failure, COPD exacerbation and early alcohol withdrawal Afib rvr. new onset.? secondary to heart failure, alcohol use Better controlled today Continue metoprolol Cardiology input appreciated Acute CHF exacerbation Cardiomyopathy Echo showed EF of 17% Likely related to chronic alcohol abuse Continue Lasix Received a small dose of metolazone Cardiology following, concern for thrombus COPD exacerbation Improving levalbuterol d/t tachycardia Change steroids to prednisone supplemental oxygen Alcohol withdrawal Continue protocol of phenobarbitol Hypomagnesemia. Secondary to alcohol use repleted 3gm trend Metabolic encephalopathy Secondary to alcohol withdrawal Recurrent reorientation Avoid benzodiazepines Hyponatremia. Secondary to alcohol use trend DVT prophylaxis with heparin a Quality Stroke Does the patient have a stroke diagnosis?: No VTE Prior VTE?: No VTE Risk Level:: Medical - moderate - high VTE Device Contraindication: Treatment Not Indicated VTE Drug Contraindication: N/A - Med Ordered
--- NOTE | 2021-05-27 13:35 | MHC.RECOVRN ---
1100- T/w briefly met with pt to further discuss substance use. Pt in bed, awake. Pt oriented x 3. Pt mumbles at times and is difficult to understand. Pt reports drinking bourbon on the rocks, approx 2-3 drinks daily x 10 years. Pt reports going to [facility] at [place] due to an OUI, does not report any other admissions. Pt reports no family hx of substance use disorders. At this time, pt requests to use the bathroom. T/w informed pt t/w will return to complete discussion. 1300- T/w returned to pts room, pt asleep. Left resources including t/w contact information. Will continue to follow and Multimedia Programmer will see pt this evening.
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
--- NOTE | 2021-05-27 15:57 | MHC.RECOVRN ---
1530- T/w met with pt to continue discussion regarding recovery. Pt reports receiving pills and a lot of shots for alcohol use disorder, pt unsure of the medication. Pt states they would put it in my thigh, I got one not too long ago at [facility]. Pt also mentions [facility] and [facility]. T/w unable to verify an injection received at [facility]. Pt reports goal is to maybe lessen the amount I drink, if anything. Pt is not interested in abstinence. Pt educated regarding medications for alcohol use disorder, pt would like to think about the information. Pt agreeable to meet again tomorrow and with Flooring Salesperson this evening. 1600- T/w spoke with pts sister, Isabela, as requested by CM. Sister is very concerned about pts living arrangements as she does want pt to move out of her home. She has filed for evictions in the past and is contemplating filing again. Isabela is also considering [facility] if pt is not willing to engage in treatment voluntarily. T/w provided information regarding programs and [facility] process. Isabela will call t/w if questions arise. Will continue to follow.
[2021-05-27] MEDS: Melatonin 3 MG TABLET 6 MG PO (20:51)
[2021-05-28] VITALS (12 sets, daily range): BP systolic 90–118; BP diastolic 58–76; PULSE 64–110; RESP 15–22; TEMP 36.2–36.8; O2SAT 92–100
[2021-05-28 07:26] LABS: B Type Natriuretic Peptide 3100 pg/mL (<100)
[2021-05-28 07:33] LABS: Alanine Aminotransferase 8 U/L (0-40); Albumin Level 3.4 g/dL (3.5-5.0); Alkaline Phosphatase 70 U/L (39-117); Anion Gap 15 (12-20); Aspartate Amino Transferase 38 U/L (5-37); Bilirubin Direct 0.8 mg/dL (0.0-0.5); Bilirubin Total 1.3 mg/dL (0.0-1.0); Blood Urea Nitrogen 15 mg/dL (9-16); Calcium 8.1 mg/dL (8.4-10.2); Carbon Dioxide 34 mmol/L (22-29); Chloride 84 mmol/L (96-108); Creatinine Clr Calc Pharmacy 102.1; Estimated Glomerular Filt Rate > 60; Glucose Random 92 mg/dL (60-115); Sodium 130 mmol/L (135-145); Total Protein 5.4 g/dL (6.5-8.0)
[2021-05-28] MEDS: Apixaban 5 MG TABLET PO ×2 (09:57→21:31)
[2021-05-28] MEDS: Thiamine HCL 100 MG TABLET PO (09:57)
[2021-05-28] MEDS: Metoprolol Tartrate 25 MG TABLET PO ×2 (09:57→12:49)
[2021-05-28] MEDS: metOLazone 2.5 MG TABLET PO (09:57)
[2021-05-28] MEDS: PHENobarbitaL 15 MG TABLET PO ×2 (09:57→21:31)
[2021-05-28] MEDS: Folic Acid 1 MG TABLET PO (09:57)
[2021-05-28] MEDS: Potassium Chloride Packet 20 MEQ PACKET 40 MEQ PO ×2 (09:57→12:49)
[2021-05-28] MEDS: Multivitamin TABLET 1 TAB PO (09:57)
[2021-05-28] MEDS: 0.9 % Sodium Chloride Flush 3 ML SYRINGE IVFLUSH ×3 (09:58→21:32)
[2021-05-28] MEDS: Furosemide 40 MG/4 ML VIAL IVPUSH (09:58)
--- NOTE | 2021-05-28 10:18 | P.PNCA_ITS ---
Subjective Subjective Date of Service: 05/28/21 Interval history: Continues to be withdrawal. No active cardiac symptoms per patient. Review of Systems Review of Systems Yes all other systems are reviewed and are negative Cardiovascular: Reports as per HPI, Reports no additional cardiovascular complai nts, Denies acrocyanosis, Denies cool extremities, Denies painful fingertips, Denies chest pain, Denies chest pain at rest, Denies diaphoresis, Denies syncope, Denies irregular heart rhythm, Denies claudication, Denies leg edema, Denies lightheadedness, Denies palpitations and Denies dyspnea Respiratory: Denies dyspnea Denies syncope Endocrine: Denies palpitations Physical Exam Vital Signs: Last Vital Signs Temp 98.2 F 05/28/21 08:00 Pulse 90 05/28/21 09:57 Resp 22 H 05/28/21 08:00 BP 104/60 05/28/21 09:57 Pulse Ox 93 05/28/21 04:00 Body Mass Index 24.5 Const General: no acute distress HENMT Other: Unremarkable Neck Neck: Yes normal visual inspection Chest Chest palpation & inspection: normal inspection of the chest Resp Other: Diminished breath sounds bilaterally with scattered wheezing. Cardio Jugular venous distension: no JVD Palpation: normal PMI Heart sounds: S1 normal heart sound present, S2 normal heart sound present, no gallops, no murmurs and no rubs GI Palpation (GI): Soft to palpation Back/Spine/Pelvis Other: unremarkable Skin General skin exam: no rashes or lesions noted Neuro Cranial nerves: Yes Other cranial nerve findings present Extrem General: Yes no clubbing, cyanosis or edema Psych Mental Status: other Results Labs and Meds Result diagrams: 05/26/21 05:20 05/28/21 05:52 Lab results: Laboratory Results - last 24 hr 05/28/21 05/28/21 05:52 05:52 Sodium 130 L Potassium 3.0 L Chloride 84 L Carbon Dioxide 34 H Anion Gap 15 BUN 15 Creatinine 0.71 Estim Creat Clear Calc 102.1 Estimated GFR > 60 Random Glucose 92 Calcium 8.1 L Total Bilirubin 1.3 H Direct Bilirubin 0.8 H AST 38 H ALT 8 Alkaline Phosphatase 70 B-Natriuretic Peptide 3100 H Total Protein 5.4 L Albumin 3.4 L Progress Note: A&P Assessment and plan (1) Atrial fibrillation with rapid ventricular response: Status: Acute (2) Acute congestive heart failure: Status: Acute (3) Alcohol abuse: Status: Acute (4) COPD exacerbation: Status: Acute Assessment and Plan: High sensitivity troponin 22.2. Cardiac BNP 1039, 1774. Chest CT scan reported to have no filling defects; moderate right pleural effusion and small-to-mo derate left pleural effusion. Small amount of ascites in the upper abdomen; small contrast flexing to IV suggesting elevated right heart pressures. Echocardiogram with markedly diminished LVEF. Possible apical thrombus. Unfortunately, patient is withdrawing from alcohol and hence has minimal unde rstanding. Hence that will need to be treated accordingly. Discussed with hospitalist. From cardiac, beta-blockers can be used for rate control. Add Digoxin. He is not a candidate for HU/ cardioversion in this setting. Empiric anticoagulation considering the atrial fibrillation as well as possible thrombus. Fall Risk Details Current Medications: Current Medications Generic Name Dose Route Start Last Admin Trade Name Freq PRN Reason Stop Dose Admin Acetaminophen 650 mg 05/24/21 14:24 Acetaminophen 325 Mg Tablet PO Q6H PRN Pain, Mild (Pain Scale 1-3) Apixaban 5 mg 05/25/21 21:00 05/28/21 09:57 Apixaban 5 Mg Tablet PO 5 mg BID DUANE Administration Folic Acid 1 mg 05/27/21 09:00 05/28/21 09:57 Folic Acid 1 Mg Tablet PO 1 mg DAILY DUANE Administration Furosemide 40 mg 05/24/21 18:00 05/28/21 09:58 Furosemide 40 Mg/4 Ml Vial IVPUSH 40 mg BID@0900,1800 DUANE Administration Protocol Levalbuterol HCl 1.25 mg 05/24/21 16:00 05/28/21 07:21 Levalbuterol Hcl 1.25 Mg/0.5 Ml Vial.Neb INHALE 1.25 mg RQ4H WHILE AWAKE DUANE Administration Medication 1 each 05/24/21 09:00 No Benzodiazepines MISCELLANE DAILY DUANE Melatonin 6 mg 05/24/21 18:12 05/27/21 20:51 Melatonin 3 Mg Tablet PO 6 mg BEDTIME PRN Administration Sleep Metoprolol Tartrate 25 mg 05/25/21 13:00 05/28/21 09:57 Metoprolol Tartrate 25 Mg Tablet PO 25 mg QID DUANE Administration Protocol Multivitamins/Vitamin C 1 tab 05/27/21 09:00 05/28/21 09:57 Multivitamin Tablet PO 1 tab DAILY DUANE Administration Ondansetron HCl 4 mg 05/24/21 14:24 Ondansetron Hcl 4 Mg/2 Ml Vial IVPUSH Q8H PRN Nausea and Vomiting Phenobarbital 15 mg 05/27/21 09:00 05/28/21 09:57 Phenobarbital 15 Mg Tablet PO 05/28/21 21:01 15 mg BID DUANE Administration Phenobarbital 15 mg 05/29/21 09:00 Phenobarbital 15 Mg Tablet PO 05/30/21 09:01 DAILY DUANE Potassium Chloride 40 meq 05/28/21 09:00 05/28/21 09:57 Potassium Chloride Packet 20 Meq Packet PO 05/28/21 13:01 40 meq Q4H DUANE Administration Sodium Chloride 3 ml 05/24/21 16:00 05/28/21 09:58 0.9 % Sodium Chloride Flush 3 Ml Syringe IVFLUSH 3 ml QSHIFT DUANE Administration Thiamine HCl 100 mg 05/27/21 09:00 05/28/21 09:57 Thiamine Hcl 100 Mg Tablet PO 100 mg DAILY DUANE Administration Time Spent With Patient Time: Total time spent is greater than 50% in coordination of care (as docum ented) at patient's floor/unit and/or counseling patient: Time with patient: less than 15 minutes Progress Note: Quality Stroke Does the patient have a stroke diagnosis?: No Procedures Date of Service Date of Service: 05/28/21
--- NOTE | 2021-05-28 10:28 | P.CDIC_ITS ---
CDI Concurrent Query Documentation Clarification: PHYSICIAN'S DOCUMENTATION REQUEST Date of Query: 05/28/21 1029 Patient Name: Brad Gordon Admit Date: 05/24/21 Dear Doctor, A review of the medical record indicates additional documentation may be needed. Please review below and update the documentation accordingly. Congestive heart failure: Risk Factors/Clinical Indicators/Treatments History of CHF, A fib likely 2nd to heart failure. PN: Acute Congestive heart failure, cardiomyopathy Echo showed EF of 17% likely related to chronic alcohol use. Continue Lasix Cardiology noted 05/27 - patient is in alcohol withdrawal not understanding treatment, Beta miguel a for rate control, not a HU candidate. Please provide further specificity regarding the most likely type and acuity of CHF you are evaluating, treating, or monitoring. Examples include: Type: * Systolic * Diastolic * Combined Systolic/Diastolic * Other ? please specify * Unable to determine Acuity: * Acute * Chronic * Acute on chronic * Unable to determine Use of terms such as suspected, likely, concern for, or probable (associated with a specific diagnosis that is being evaluated, monitored, or treated as if it exists) are acceptable and can be coded in the inpatient setting, when documented at the time of discharge. Thank you, Bhargavi Rocha [facility], [facility]IS Extension: [phone] Please use your independent medical judgment in providing your response. THIS QUERY IS PART OF THE PERMANENT MEDICAL RECORD Provider Response: Acute on Chronic Diastolic and/or Systolic CHF
--- NOTE | 2021-05-28 12:10 | MHC.RECOVRN ---
T/w met with pt to f/u regarding medications for alcohol use disorder. Pt awake, alert, engaged in conversation. Pt interested in naltrexone initiation. Discussed with Jaqueline Valencia APRN.
[2021-05-28] MEDS: Digoxin 0.5 MG/2 ML AMPUL 0.25 MG IVPUSH ×3 (12:49→21:31)
--- NOTE | 2021-05-28 13:05 | MHC.CM.PN ---
PER MD ROUNDS, PT LIKELY TO REMAIN INPT THROUGH THE WEEKEND. DC PLAN CONTINUES TO BE HOME WITH NO SERVICES VS HOME WITH CARE TEAM REFERRALS
--- NOTE | 2021-05-28 15:53 | P.PNIM_ITS ---
Subjective Subjective Date of Service: 05/28/21 Interval History: the patient was seen and evaluated this morning More alert and interactive this morning Requiring oxygen supplement No other overnight events reported Systemic review: No fever, chills with requiring oxygen supplement and feeling little bit of No chest pain, palpitation No shortness of breath or coughing No abdominal pain, nausea or vomiting No urinary symptoms No any rash or wounds Physical Exam Vital Signs: Vital Signs: Last Vital Signs Temp 97.5 F 05/28/21 11:31 Pulse 82 05/28/21 11:31 Resp 20 05/28/21 11:31 BP 93/75 05/28/21 11:31 Pulse Ox 100 05/28/21 11:31 Body Mass Index 24.5 Const: Other: Constitutional : Alert, oriented, interactive Neck : Normal inspection, Supple Cardiovascular : RRR, S1 S2, no lower extremity edema Respiratory : Fair bilateral air entry, basal bilateral crackles with mild expiratory wheezes Gastrointestinal: soft, lax, Normal bowel sounds, Non tender Skin : Warm, Dry Neurological : Alert & oriented by 3, tremors, No focal deficit Objective Data Active Medications Acetaminophen (Acetaminophen 325 Mg Tablet) 650 mg PO Q6H PRN PRN Reason: Pain, Mild (Pain Scale 1-3) Apixaban (Apixaban 5 Mg Tablet) 5 mg PO BID [facility] Last Admin: 05/28/21 09:57 Dose: 5 mg Documented by: LIZZ Digoxin (Digoxin 0.5 Mg/2 Ml Ampul) 0.25 mg IVPUSH Q6H [facility] Stop: 05/29/21 05:01 Last Admin: 05/28/21 12:49 Dose: 0.25 mg Documented by: LIZZ Digoxin (Digoxin 0.125 Mg Tablet) 0.125 mg PO DAILY [facility] Folic Acid (Folic Acid 1 Mg Tablet) 1 mg PO DAILY [facility] Last Admin: 05/28/21 09:57 Dose: 1 mg Documented by: LIZZ Furosemide (Furosemide 40 Mg/4 Ml Vial) 40 mg IVPUSH BID@0900,1800 [facility]; Protocol Last Admin: 05/28/21 09:58 Dose: 40 mg Documented by: LIZZ Levalbuterol HCl (Levalbuterol Hcl 1.25 Mg/0.5 Ml Vial.Neb) 1.25 mg INHALE RQ4H WHILE AWAKE [facility] Last Admin: 05/28/21 14:53 Dose: 1.25 mg Documented by: CYNDYSCRaine Medication (No Benzodiazepines) 1 each MISCELLANE DAILY [facility] Melatonin (Melatonin 3 Mg Tablet) 6 mg PO BEDTIME PRN PRN Reason: Sleep Last Admin: 05/27/21 20:51 Dose: 6 mg Documented by: QUOC Metoprolol Tartrate (Metoprolol Tartrate 25 Mg Tablet) 25 mg PO QID [facility]; Protocol Last Admin: 05/28/21 12:49 Dose: 25 mg Documented by: LIZZ Multivitamins/Vitamin C (Multivitamin Tablet) 1 tab PO DAILY [facility] Last Admin: 05/28/21 09:57 Dose: 1 tab Documented by: LIZZ Ondansetron HCl (Ondansetron Hcl 4 Mg/2 Ml Vial) 4 mg IVPUSH Q8H PRN PRN Reason: Nausea and Vomiting Phenobarbital (Phenobarbital 15 Mg Tablet) 15 mg PO BID [facility] Stop: 05/28/21 21:01 Last Admin: 05/28/21 09:57 Dose: 15 mg Documented by: LIZZ Phenobarbital (Phenobarbital 15 Mg Tablet) 15 mg PO DAILY [facility] Stop: 05/30/21 09:01 Sodium Chloride (0.9 % Sodium Chloride Flush 3 Ml Syringe) 3 ml IVFLUSH QSHIFT [facility] Last Admin: 05/28/21 12:50 Dose: 3 ml Documented by: LIZZ Thiamine HCl (Thiamine Hcl 100 Mg Tablet) 100 mg PO DAILY [facility] Last Admin: 05/28/21 09:57 Dose: 100 mg Documented by: LIZZ Labs CBC & Chem 7: 05/26/21 05:20 05/28/21 05:52 Labs: Laboratory Results - last 24 hr 05/28/21 05/28/21 05:52 05:52 Anion Gap 15 Estim Creat Clear Calc 102.1 Estimated GFR > 60 Random Glucose 92 Calcium 8.1 L Total Bilirubin 1.3 H Direct Bilirubin 0.8 H AST 38 H ALT 8 Alkaline Phosphatase 70 B-Natriuretic Peptide 3100 H Total Protein 5.4 L Albumin 3.4 L Assessment and Plan (1) Alcohol withdrawal: Status: Acute (2) Acute on chronic systolic (congestive) heart failure: Status: Acute (3) Alcohol abuse: Status: Acute (4) Atrial fibrillation with rapid ventricular response: Status: Acute Assessment and Plan: 60 year old man admitted with acute congestive heart failure, COPD exacerbation and early alcohol withdrawal Culture fibrillation RVR secondary to heart failure, alcohol use Rate remains in 130s Continue metoprolol Cardiology input appreciated, load with digoxin Acute on chronic systolic CHF exacerbation Cardiomyopathy Echo showed EF of 17% Improving Continue Lasix small dose of metolazone Cardiology following, concern for thrombus COPD exacerbation Continue Xopenex d/t tachycardia Continue prednisone Wean down supplemental oxygen Alcohol withdrawal Continue protocol of phenobarbitol Hypomagnesemia. Secondary to alcohol use repleted 3gm trend Metabolic encephalopathy Secondary to alcohol withdrawal Recurrent reorientation Avoid benzodiazepines Hyponatremia. Secondary to alcohol use trend DVT prophylaxis with heparin a Quality Stroke Does the patient have a stroke diagnosis?: No VTE Prior VTE?: No VTE Risk Level:: Medical - moderate - high VTE Device Contraindication: Treatment Not Indicated VTE Drug Contraindication: N/A - Med Ordered
[2021-05-28] MEDS: Metoprolol Tartrate 12.5 MG HALFTAB PO (21:31)
[2021-05-29] VITALS (11 sets, daily range): BP systolic 90–111; BP diastolic 58–74; PULSE 55–105; RESP 17–18; TEMP 36.3–36.8; O2SAT 94–97
[2021-05-29] MEDS: Digoxin 0.5 MG/2 ML AMPUL 0.25 MG IVPUSH (06:05)
[2021-05-29 06:53] LABS: Alanine Aminotransferase 8 U/L (0-40); Albumin Level 3.3 g/dL (3.5-5.0); Alkaline Phosphatase 73 U/L (39-117); Anion Gap 12 (12-20); Aspartate Amino Transferase 29 U/L (5-37); Bilirubin Direct 0.7 mg/dL (0.0-0.5); Blood Urea Nitrogen 13 mg/dL (9-16); Calcium 8.7 mg/dL (8.4-10.2); Carbon Dioxide 36 mmol/L (22-29); Chloride 82 mmol/L (96-108); Creatinine Clr Calc Pharmacy 96.7; Estimated Glomerular Filt Rate > 60; Glucose Random 89 mg/dL (60-115); Potassium 3.4 mmol/L (3.3-5.1); Sodium 127 mmol/L (135-145); Total Protein 5.2 g/dL (6.5-8.0)
[2021-05-29] MEDS: Multivitamin TABLET 1 TAB PO (08:50)
[2021-05-29] MEDS: Digoxin 0.125 MG TABLET PO (08:50)
[2021-05-29] MEDS: PHENobarbitaL 15 MG TABLET PO (08:50)
[2021-05-29] MEDS: Metoprolol Tartrate 12.5 MG HALFTAB PO ×3 (08:50→16:57)
[2021-05-29] MEDS: Apixaban 5 MG TABLET PO ×2 (08:50→20:32)
[2021-05-29] MEDS: Thiamine HCL 100 MG TABLET PO (08:51)
[2021-05-29] MEDS: 0.9 % Sodium Chloride Flush 3 ML SYRINGE IVFLUSH ×2 (08:51→14:31)
[2021-05-29] MEDS: Folic Acid 1 MG TABLET PO (08:51)
[2021-05-29] MEDS: Furosemide 40 MG TABLET PO (08:52)
--- NOTE | 2021-05-29 12:42 | HO.PM.IMPN ---
Subjective Subjective Date of Service: 05/29/21 Interval History: the patient was seen and evaluated this morning Feels much better today, more interactive but reports generalized weakness Sodium level dropped to 127 No other overnight events reported Systemic review: No fever, chills but reports generalized weakness No chest pain, palpitation No shortness of breath or coughing No abdominal pain, nausea or vomiting No urinary symptoms No any rash or wounds Physical Exam Vital Signs: Vital Signs: Last Vital Signs Temp 97.5 F 05/29/21 12:00 Pulse 98 05/29/21 12:00 Resp 17 05/29/21 12:00 BP 90/67 05/29/21 12:00 Pulse Ox 96 05/29/21 12:00 Body Mass Index 24.5 Const: Other: Constitutional : Alert, oriented, interactive Neck : Normal inspection, Supple Cardiovascular : RRR, S1 S2, no lower extremity edema Respiratory : Fair bilateral air entry, minimal crackles with mild expiratory wheezes Gastrointestinal: soft, lax, Normal bowel sounds, Non tender Skin : Warm, Dry Neurological : Alert & oriented by 3, tremors, No focal deficit Objective Data Active Medications Acetaminophen (Acetaminophen 325 Mg Tablet) 650 mg PO Q6H PRN PRN Reason: Pain, Mild (Pain Scale 1-3) Apixaban (Apixaban 5 Mg Tablet) 5 mg PO BID [facility] Last Admin: 05/29/21 08:50 Dose: 5 mg Documented by: LIZZ Digoxin (Digoxin 0.125 Mg Tablet) 0.125 mg PO DAILY [facility] Last Admin: 05/29/21 08:50 Dose: 0.125 mg Documented by: LIZZ Folic Acid (Folic Acid 1 Mg Tablet) 1 mg PO DAILY [facility] Last Admin: 05/29/21 08:51 Dose: 1 mg Documented by: LIZZ Furosemide (Furosemide 40 Mg Tablet) 40 mg PO BID@0900,1800 [facility]; Protocol Last Admin: 05/29/21 08:52 Dose: 40 mg Documented by: LIZZ Comments: barcode ripped Levalbuterol HCl (Levalbuterol Hcl 1.25 Mg/0.5 Ml Vial.Neb) 1.25 mg INHALE RQ4H WHILE AWAKE [facility] Last Admin: 05/29/21 11:18 Dose: Not Given Documented by: DEVIN Non-Admin Reason: pt sleeping Medication (No Benzodiazepines) 1 each MISCELLANE DAILY [facility] Melatonin (Melatonin 3 Mg Tablet) 6 mg PO BEDTIME PRN PRN Reason: Sleep Last Admin: 05/27/21 20:51 Dose: 6 mg Documented by: QUOC Metoprolol Tartrate (Metoprolol Tartrate 12.5 Mg Halftab) 12.5 mg PO QID [facility]; Protocol Last Admin: 05/29/21 08:50 Dose: 12.5 mg Documented by: LIZZ Multivitamins/Vitamin C (Multivitamin Tablet) 1 tab PO DAILY [facility] Last Admin: 05/29/21 08:50 Dose: 1 tab Documented by: LIZZ Ondansetron HCl (Ondansetron Hcl 4 Mg/2 Ml Vial) 4 mg IVPUSH Q8H PRN PRN Reason: Nausea and Vomiting Phenobarbital (Phenobarbital 15 Mg Tablet) 15 mg PO DAILY [facility] Stop: 05/30/21 09:01 Last Admin: 05/29/21 08:50 Dose: 15 mg Documented by: LIZZ Sodium Chloride (0.9 % Sodium Chloride Flush 3 Ml Syringe) 3 ml IVFLUSH QSHIFT [facility] Last Admin: 05/29/21 08:51 Dose: 3 ml Documented by: LIZZ Thiamine HCl (Thiamine Hcl 100 Mg Tablet) 100 mg PO DAILY [facility] Last Admin: 05/29/21 08:51 Dose: 100 mg Documented by: LIZZ Labs CBC & Chem 7: 05/26/21 05:20 05/29/21 05:58 Labs: Laboratory Results - last 24 hr 05/29/21 05:58 Anion Gap 12 Estim Creat Clear Calc 96.7 Estimated GFR > 60 Random Glucose 89 Calcium 8.7 D Total Bilirubin 1.0 Direct Bilirubin 0.7 H AST 29 ALT 8 Alkaline Phosphatase 73 Total Protein 5.2 L Albumin 3.3 L Assessment and Plan (1) Acute on chronic systolic (congestive) heart failure: Status: Acute (2) Alcohol withdrawal: Status: Acute (3) Physical deconditioning: Status: Acute Assessment and Plan: 60 year old man admitted with acute congestive heart failure, COPD exacerbation and early alcohol withdrawal Hyponatremia Sodium of 127 Likely secondary to metolazone and Lasix Hold diuresis for now and monitor BMP Atrial fibrillation RVR secondary to heart failure, alcohol use Rate better controlled between 80-100 Continue metoprolol, digoxin Cardiology input appreciated Acute on chronic systolic CHF exacerbation Cardiomyopathy Echo showed EF of 17% Weaned off oxygen Change Lasix to p.o. Cardiology following, concern for thrombus COPD exacerbation Continue Xopenex Continue prednisone last day Alcohol withdrawal Resolved Received phenobarbitol protocol Hypomagnesemia. repleted Metabolic encephalopathy Secondary to alcohol withdrawal Recurrent reorientation Avoid benzodiazepines DVT prophylaxis with heparin a Quality Stroke Does the patient have a stroke diagnosis?: No VTE Prior VTE?: No VTE Risk Level:: Medical - moderate - high VTE Device Contraindication: Treatment Not Indicated VTE Drug Contraindication: N/A - Med Ordered
[2021-05-29 15:49] LABS: Anion Gap 12 (12-20); Blood Urea Nitrogen 13 mg/dL (9-16); Calcium 9.4 mg/dL (8.4-10.2); Carbon Dioxide 38 mmol/L (22-29); Chloride 81 mmol/L (96-108); Creatinine Clr Calc Pharmacy 95.4; Estimated Glomerular Filt Rate > 60; Glucose Random 91 mg/dL (60-115); Potassium 4.5 mmol/L (3.3-5.1); Sodium 126 mmol/L (135-145)
[2021-05-30] VITALS (13 sets, daily range): BP systolic 96–133; BP diastolic 68–84; PULSE 57–111; RESP 18; TEMP 36.3–37.2; O2SAT 94–98
[2021-05-30] MEDS: Melatonin 3 MG TABLET 6 MG PO (00:18)
[2021-05-30] MEDS: 0.9 % Sodium Chloride Flush 3 ML SYRINGE IVFLUSH ×4 (00:19→20:25)
[2021-05-30 06:51] LABS: Anion Gap 15 (12-20); Blood Urea Nitrogen 11 mg/dL (9-16); Calcium 8.9 mg/dL (8.4-10.2); Carbon Dioxide 33 mmol/L (22-29); Chloride 85 mmol/L (96-108); Creatinine Clr Calc Pharmacy 100.7; Estimated Glomerular Filt Rate > 60; Glucose Random 95 mg/dL (60-115); Potassium 4.3 mmol/L (3.3-5.1); Sodium 129 mmol/L (135-145)
[2021-05-30 06:55] LABS: B Type Natriuretic Peptide 1016 pg/mL (<100)
[2021-05-30] MEDS: Folic Acid 1 MG TABLET PO (07:50)
[2021-05-30] MEDS: Digoxin 0.125 MG TABLET PO (07:50)
[2021-05-30] MEDS: Thiamine HCL 100 MG TABLET PO (07:50)
[2021-05-30] MEDS: PHENobarbitaL 15 MG TABLET PO (07:50)
[2021-05-30] MEDS: Multivitamin TABLET 1 TAB PO (07:51)
[2021-05-30] MEDS: Metoprolol Tartrate 12.5 MG HALFTAB PO ×4 (07:51→20:24)
[2021-05-30] MEDS: Apixaban 5 MG TABLET PO ×2 (07:51→20:24)
--- NOTE | 2021-05-30 10:56 | PM.PNCARD ---
Subjective Subjective Date of Service: 05/30/21 Interval history: A bit more alert and more communicative. Denies any cardiac symptoms. Review of Systems Review of Systems Unable to obtain. Yes all other systems are reviewed and are negative Cardiovascular: Reports as per HPI, Reports no additional cardiovascular complaints, Denies acrocyanosis, Denies cool extremities, Denies painful fingertips, Denies chest pain, Denies chest pain at rest, Denies diaphoresis, Denies syncope, Denies irregular heart rhythm, Denies claudication, Denies leg edema, Denies lightheadedness, Denies palpitations and Denies dyspnea Respiratory: Denies dyspnea Denies syncope Endocrine: Denies palpitations Physical Exam Vital Signs: Last Vital Signs Temp 97.6 F 05/30/21 07:14 Pulse 95 05/30/21 07:51 Resp 18 05/30/21 07:14 BP 96/68 05/30/21 07:51 Pulse Ox 97 05/30/21 07:14 Body Mass Index 24.5 Const General: no acute distress HENMT Other: Unremarkable Neck Neck: Yes normal visual inspection Chest Chest palpation & inspection: normal inspection of the chest Resp Other: Diminished breath sounds bilaterally with scattered wheezing. Cardio Jugular venous distension: no JVD Palpation: normal PMI Heart sounds: S1 normal heart sound present, S2 normal heart sound present, no gallops, no murmurs and no rubs GI Palpation (GI): Soft to palpation Back/Spine/Pelvis Other: unremarkable Skin General skin exam: no rashes or lesions noted Neuro Cranial nerves: Yes Other cranial nerve findings present Extrem General: Yes no clubbing, cyanosis or edema Psych Mental Status: other Results Labs and Meds Result diagrams: 05/26/21 05:20 05/30/21 05:49 Lab results: Laboratory Results - last 24 hr 05/29/21 05/30/21 05/30/21 15:14 05:49 05:49 Sodium 126 L 129 L Potassium 4.5 D 4.3 Chloride 81 L 85 L Carbon Dioxide 38 H 33 H Anion Gap 12 15 BUN 13 11 Creatinine 0.76 0.72 Estim Creat Clear Calc 95.4 100.7 Estimated GFR > 60 > 60 Random Glucose 91 95 Calcium 9.4 D 8.9 B-Natriuretic Peptide 1016 H Progress Note: A&P Assessment and plan (1) Atrial fibrillation with rapid ventricular response: Status: Acute (2) Acute congestive heart failure: Status: Acute (3) Alcohol abuse: Status: Acute (4) COPD exacerbation: Status: Acute Assessment and Plan: High sensitivity troponin 22.2. Cardiac BNP 1039, 1774. Chest CT scan reported to have no filling defects; moderate right pleural effusion and [id number] left pleural effusion. Small amount of ascites in the upper abdomen; small contrast flexing to IV suggesting elevated right heart pressures. Echocardiogram with markedly diminished LVEF. Possible apical thrombus. Slowly withdrawing from alcohol but improved compared to admission. Continue rate control with beta-blockers and digoxin. Change to sustained release Metoprolol. KEVIN-i if BP allows. Anticoagulation for atrial fibrillation as well as possible LV thrombus. Need updated from alcohol and diet reinforced this as much as possible. Otherwise, upon discharge we can arrange follow-up if he is willing to come. Fall Risk Details Current Medications: Current Medications Generic Name Dose Route Start Last Admin Trade Name Freq PRN Reason Stop Dose Admin Acetaminophen 650 mg 05/24/21 14:24 Acetaminophen 325 Mg Tablet PO Q6H PRN Pain, Mild (Pain Scale 1-3) Apixaban 5 mg 05/25/21 21:00 05/30/21 07:51 Apixaban 5 Mg Tablet PO 5 mg BID [facility] Administration Digoxin 0.125 mg 05/29/21 09:00 05/30/21 07:50 Digoxin 0.125 Mg Tablet PO 0.125 mg DAILY [facility] Administration Folic Acid 1 mg 05/27/21 09:00 05/30/21 07:50 Folic Acid 1 Mg Tablet PO 1 mg DAILY [facility] Administration Levalbuterol HCl 1.25 mg 05/24/21 16:00 05/30/21 10:44 Levalbuterol Hcl 1.25 Mg/0.5 Ml Vial.Neb INHALE Not Given RQ4H WHILE AWAKE [facility] Medication 1 each 05/24/21 09:00 No Benzodiazepines MISCELLANE DAILY [facility] Melatonin 6 mg 05/24/21 18:12 05/30/21 00:18 Melatonin 3 Mg Tablet PO 6 mg BEDTIME PRN Administration Sleep Metoprolol Tartrate 12.5 mg 05/28/21 17:00 05/30/21 07:51 Metoprolol Tartrate 12.5 Mg Halftab PO 12.5 mg QID [facility] Administration Protocol Multivitamins/Vitamin C 1 tab 05/27/21 09:00 05/30/21 07:51 Multivitamin Tablet PO 1 tab DAILY [facility] Administration Ondansetron HCl 4 mg 05/24/21 14:24 Ondansetron Hcl 4 Mg/2 Ml Vial IVPUSH Q8H PRN Nausea and Vomiting Sodium Chloride 3 ml 05/24/21 16:00 05/30/21 07:52 0.9 % Sodium Chloride Flush 3 Ml Syringe IVFLUSH 3 ml QSHIFT [facility] Administration Thiamine HCl 100 mg 05/27/21 09:00 05/30/21 07:50 Thiamine Hcl 100 Mg Tablet PO 100 mg DAILY [facility] Administration Time Spent With Patient Time: Total time spent is greater than 50% in coordination of care (as documented) at patient's floor/unit and/or counseling patient: Time with patient: less than 15 minutes Progress Note: Quality Stroke Does the patient have a stroke diagnosis?: No Procedures Date of Service Date of Service: 05/30/21
--- NOTE | 2021-05-30 11:55 | HO.PM.IMPN ---
Subjective Subjective Date of Service: 05/30/21 Interval History: the patient was seen and evaluated this morning reports generalized weakness Sodium level improved to 129 No other overnight events reported Systemic review: No fever, chills but reports generalized weakness No chest pain, palpitation No shortness of breath or coughing No abdominal pain, nausea or vomiting No urinary symptoms No any rash or wounds Physical Exam Vital Signs: Vital Signs: Last Vital Signs Temp 97.3 F 05/30/21 10:58 Pulse 85 05/30/21 10:58 Resp 18 05/30/21 10:58 BP 97/69 05/30/21 10:58 Pulse Ox 97 05/30/21 10:58 Body Mass Index 24.5 Const: Other: Constitutional : Alert, oriented, interactive Neck : Normal inspection, Supple Cardiovascular : RRR, S1 S2, no lower extremity edema Respiratory : Fair bilateral air entry, minimal crackles with mild expiratory wheezes Gastrointestinal: soft, lax, Normal bowel sounds, Non tender Skin : Warm, Dry Neurological : Alert & oriented by 3,No focal deficit Objective Data Active Medications Acetaminophen (Acetaminophen 325 Mg Tablet) 650 mg PO Q6H PRN PRN Reason: Pain, Mild (Pain Scale 1-3) Apixaban (Apixaban 5 Mg Tablet) 5 mg PO BID [facility] Last Admin: 05/30/21 07:51 Dose: 5 mg Documented by: DIDI Digoxin (Digoxin 0.125 Mg Tablet) 0.125 mg PO DAILY [facility] Last Admin: 05/30/21 07:50 Dose: 0.125 mg Documented by: DIDI Folic Acid (Folic Acid 1 Mg Tablet) 1 mg PO DAILY [facility] Last Admin: 05/30/21 07:50 Dose: 1 mg Documented by: DIDI Levalbuterol HCl (Levalbuterol Hcl 1.25 Mg/0.5 Ml Vial.Neb) 1.25 mg INHALE RQ4H WHILE AWAKE [facility] Last Admin: 05/30/21 10:44 Dose: Not Given Documented by: DEVIN Non-Admin Reason: pt sleeping Medication (No Benzodiazepines) 1 each MISCELLANE DAILY [facility] Melatonin (Melatonin 3 Mg Tablet) 6 mg PO BEDTIME PRN PRN Reason: Sleep Last Admin: 05/30/21 00:18 Dose: 6 mg Documented by: LUDA Metoprolol Tartrate (Metoprolol Tartrate 12.5 Mg Halftab) 12.5 mg PO QID [facility]; Protocol Last Admin: 05/30/21 07:51 Dose: 12.5 mg Documented by: DIDI Multivitamins/Vitamin C (Multivitamin Tablet) 1 tab PO DAILY [facility] Last Admin: 05/30/21 07:51 Dose: 1 tab Documented by: DIDI Ondansetron HCl (Ondansetron Hcl 4 Mg/2 Ml Vial) 4 mg IVPUSH Q8H PRN PRN Reason: Nausea and Vomiting Sodium Chloride (0.9 % Sodium Chloride Flush 3 Ml Syringe) 3 ml IVFLUSH QSHIFT [facility] Last Admin: 05/30/21 07:52 Dose: 3 ml Documented by: DIDI Thiamine HCl (Thiamine Hcl 100 Mg Tablet) 100 mg PO DAILY [facility] Last Admin: 05/30/21 07:50 Dose: 100 mg Documented by: DIDI Labs CBC & Chem 7: 05/26/21 05:20 05/30/21 05:49 Labs: Laboratory Results - last 24 hr 05/29/21 05/30/21 05/30/21 15:14 05:49 05:49 Anion Gap 12 15 Estim Creat Clear Calc 95.4 100.7 Estimated GFR > 60 > 60 Random Glucose 91 95 Calcium 9.4 D 8.9 B-Natriuretic Peptide 1016 H Microbiology Microbiology Results: Microbiology 05/24/21 10:39 Blood Culture - Final Blood - Venous No growth after 5 days. 05/24/21 10:39 Blood Culture - Final Blood - Venous No growth after 5 days. Assessment and Plan (1) Physical deconditioning: Status: Acute (2) Acute on chronic systolic (congestive) heart failure: Status: Acute (3) Alcohol withdrawal: Status: Acute (4) Hyponatremia: Status: Acute Assessment and Plan: 60 year old man admitted with acute congestive heart failure, COPD exacerbation and early alcohol withdrawal Hyponatremia Sodium improved to 129 Likely secondary to alcoholism, metolazone and Lasix Hold diuresis for now and monitor BMP Atrial fibrillation RVR secondary to heart failure, alcohol use Rate better controlled between 80-100 Continue metoprolol, digoxin Cardiology input appreciated, to discharge on long-acting metoprolol Acute on chronic systolic CHF exacerbation Cardiomyopathy Echo showed EF of 17% Weaned off oxygen Change Lasix to p.o. Cardiology following, concern for thrombus COPD exacerbation Continue Xopenex Continue prednisone last day Alcohol withdrawal Resolved Received phenobarbitol protocol Hypomagnesemia. repleted Metabolic encephalopathy Secondary to alcohol withdrawal Recurrent reorientation Avoid benzodiazepines DVT prophylaxis with heparin a Quality Stroke Does the patient have a stroke diagnosis?: No VTE Prior VTE?: No VTE Risk Level:: Medical - moderate - high VTE Device Contraindication: Treatment Not Indicated VTE Drug Contraindication: N/A - Med Ordered
[2021-05-31] VITALS (14 sets, daily range): BP systolic 94–124; BP diastolic 61–88; PULSE 56–102; RESP 18–20; TEMP 36.4–37.6; O2SAT 94–100
[2021-05-31 07:16] LABS: Anion Gap 14 (12-20); Blood Urea Nitrogen 9 mg/dL (9-16); Calcium 8.9 mg/dL (8.4-10.2); Carbon Dioxide 33 mmol/L (22-29); Chloride 89 mmol/L (96-108); Creatinine Clr Calc Pharmacy 106.6; Estimated Glomerular Filt Rate > 60; Glucose Random 76 mg/dL (60-115); Potassium 3.5 mmol/L (3.3-5.1); Sodium 132 mmol/L (135-145)
[2021-05-31] MEDS: Multivitamin TABLET 1 TAB PO (09:51)
[2021-05-31] MEDS: Folic Acid 1 MG TABLET PO (09:51)
[2021-05-31] MEDS: 0.9 % Sodium Chloride Flush 3 ML SYRINGE IVFLUSH ×3 (09:51→20:36)
[2021-05-31] MEDS: Metoprolol Tartrate 12.5 MG HALFTAB PO ×3 (09:52→17:10)
[2021-05-31] MEDS: Apixaban 5 MG TABLET PO ×2 (09:52→20:36)
[2021-05-31] MEDS: Thiamine HCL 100 MG TABLET PO (09:52)
[2021-05-31] MEDS: Digoxin 0.125 MG TABLET PO (09:52)
--- NOTE | 2021-05-31 12:28 | MHC.CM.PN ---
Addendum entered by Donna Brown 06/01/21 10:12: PT REPORTS HE HAS RECEIVED THE FIRST DOSE OF THE PFIZER VACCINE AND WOULD BE DUE FOR THE SECOND DOSE TODAY. 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 IT MAY TAKE UP TO 5 DAYS HOWEVER IF PT IS TRANSFERRED PRIOR TO THAT, THEY WILL SEE HIM AT [facility]. Addendum entered by Donna Brown 05/31/21 15:23: [facility] WAS INTERESTED IN PTS REFERRAL HOWEVER THEY WERE UNABLE TO COMPLETE BED OFFER DUE TO PT NOT BEING VACCINATED AGAINST COVID 19. CM SENT 13 MORE REFERRALS. Original Note: CM MET WITH PT TO DISCUSS DC PLANNING. PT IS AWARE STR HAS BEEN RECOMMENDED AND REPORTS HE IS WILLING TO GO. PT HAS BEEN TO [facility] IN THE PAST AND REPORTS IT WAS A GOOD EXPERIENCE. PT IS ALSO REQUESTING A REFERRAL TO [facility]. PT DOES NOT WANT TO GO TO [facility] HIS EX- WORKS THERE. . REFERRALS PLACED DCP STR PENDING INSURANCE AUTH
--- NOTE | 2021-05-31 14:50 | HO.PM.IMPN ---
Subjective Subjective Date of Service: 05/31/21 Interval History: the patient was seen and evaluated this morning Sodium level improved to 132, feels improvement but overall weak No other overnight events reported Systemic review: No fever, chills but reports generalized weakness No chest pain, palpitation No shortness of breath or coughing No abdominal pain, nausea or vomiting No urinary symptoms No any rash or wounds Physical Exam Vital Signs: Vital Signs: Last Vital Signs Temp 97.8 F 05/31/21 11:08 Pulse 102 H 05/31/21 13:54 Resp 18 05/31/21 11:08 BP 109/61 05/31/21 13:54 Pulse Ox 97 05/31/21 11:08 Body Mass Index 24.5 Const: Other: Constitutional : Alert, oriented, interactive Neck : Normal inspection, Supple Cardiovascular : RRR, S1 S2, no lower extremity edema Respiratory : Fair bilateral air entry, no crackles Gastrointestinal: soft, lax, Normal bowel sounds, Non tender Skin : Warm, Dry Neurological : Alert & oriented x3, No focal deficit Objective Data Active Medications Acetaminophen (Acetaminophen 325 Mg Tablet) 650 mg PO Q6H PRN PRN Reason: Pain, Mild (Pain Scale 1-3) Apixaban (Apixaban 5 Mg Tablet) 5 mg PO BID [facility] Last Admin: 05/31/21 09:52 Dose: 5 mg Documented by: BIANKA Digoxin (Digoxin 0.125 Mg Tablet) 0.125 mg PO DAILY [facility] Last Admin: 05/31/21 09:52 Dose: 0.125 mg Documented by: BIANKA Folic Acid (Folic Acid 1 Mg Tablet) 1 mg PO DAILY [facility] Last Admin: 05/31/21 09:51 Dose: 1 mg Documented by: BIANKA Levalbuterol HCl (Levalbuterol Hcl 1.25 Mg/0.5 Ml Vial.Neb) 1.25 mg INHALE RQ4H WHILE AWAKE [facility] Last Admin: 05/31/21 11:31 Dose: 1.25 mg Documented by: GAEL Medication (No Benzodiazepines) 1 each MISCELLANE DAILY [facility] Melatonin (Melatonin 3 Mg Tablet) 6 mg PO BEDTIME PRN PRN Reason: Sleep Last Admin: 05/30/21 00:18 Dose: 6 mg Documented by: LUDA Metoprolol Tartrate (Metoprolol Tartrate 12.5 Mg Halftab) 12.5 mg PO QID [facility]; Protocol Last Admin: 05/31/21 13:54 Dose: 12.5 mg Documented by: BIANKA Multivitamins/Vitamin C (Multivitamin Tablet) 1 tab PO DAILY [facility] Last Admin: 05/31/21 09:51 Dose: 1 tab Documented by: BIANKA Ondansetron HCl (Ondansetron Hcl 4 Mg/2 Ml Vial) 4 mg IVPUSH Q8H PRN PRN Reason: Nausea and Vomiting Sodium Chloride (0.9 % Sodium Chloride Flush 3 Ml Syringe) 3 ml IVFLUSH QSHIFT [facility] Last Admin: 05/31/21 13:55 Dose: 3 ml Documented by: BIANKA Thiamine HCl (Thiamine Hcl 100 Mg Tablet) 100 mg PO DAILY [facility] Last Admin: 05/31/21 09:52 Dose: 100 mg Documented by: BIANKA Labs CBC & Chem 7: 05/26/21 05:20 05/31/21 06:00 Labs: Laboratory Results - last 24 hr 05/31/21 06:00 Anion Gap 14 Estim Creat Clear Calc 106.6 Estimated GFR > 60 Random Glucose 76 Calcium 8.9 Assessment and Plan (1) Hyponatremia: Status: Acute (2) Acute on chronic systolic (congestive) heart failure: Status: Acute (3) Physical deconditioning: Status: Acute (4) Alcohol withdrawal: Status: Acute Assessment and Plan: 60 year old man admitted with acute congestive heart failure, COPD exacerbation and early alcohol withdrawal Hyponatremia Sodium improved to 129 Likely secondary to alcoholism, metolazone and Lasix Hold diuresis for now and monitor BMP Atrial fibrillation RVR secondary to heart failure, alcohol use Rate better controlled between 80-100 Continue metoprolol, digoxin Cardiology input appreciated, to discharge on long-acting metoprolol Acute on chronic systolic CHF exacerbation Cardiomyopathy Echo showed EF of 17% Weaned off oxygen Change Lasix to p.o. Cardiology following, concern for thrombus COPD exacerbation Continue Xopenex Continue prednisone last day Alcohol withdrawal Resolved Received phenobarbitol protocol Hypomagnesemia. repleted Metabolic encephalopathy Secondary to alcohol withdrawal Recurrent reorientation Avoid benzodiazepines DVT prophylaxis with heparin a Quality Stroke Does the patient have a stroke diagnosis?: No VTE Prior VTE?: No VTE Risk Level:: Medical - moderate - high VTE Device Contraindication: Treatment Not Indicated VTE Drug Contraindication: N/A - Med Ordered
[2021-06-01] VITALS (9 sets, daily range): BP systolic 102–138; BP diastolic 57–83; PULSE 64–101; RESP 18–20; TEMP 36.4–37.2; O2SAT 94–99
[2021-06-01] MEDS: 0.9 % Sodium Chloride Flush 3 ML SYRINGE IVFLUSH ×2 (08:19→16:50)
[2021-06-01] MEDS: Digoxin 0.125 MG TABLET PO (08:19)
[2021-06-01] MEDS: Apixaban 5 MG TABLET PO ×2 (08:20→20:52)
[2021-06-01] MEDS: Folic Acid 1 MG TABLET PO (08:20)
[2021-06-01] MEDS: Thiamine HCL 100 MG TABLET PO (08:20)
[2021-06-01] MEDS: Multivitamin TABLET 1 TAB PO (08:20)
[2021-06-01] MEDS: Metoprolol Succinate ER 25 MG TAB.ER.24H PO (08:22)
[2021-06-01] MEDS: Acetaminophen 325 MG TABLET 650 MG PO (08:23)
--- NOTE | 2021-06-01 09:22 | MHC.CM.PN ---
( Male60 DX HF AFIB RVR ETOH. Barrier to to discharge: Patient is not vaccinated. Multiple referrals sent. [facility] is the only interested facility. They do not have a quarantine bed at this time. CM will follow.
--- NOTE | 2021-06-01 11:13 | PC.NURSE ---
Skin assessment completed today. Patient's skin is dry with no open areas. No pressure areas.
--- NOTE | 2021-06-01 12:49 | MHC.RECOVRN ---
T/w met with pt to continue discussion regarding treatment for AUD. Pt reports right leg began hurting yesterday and has made ambulation difficult. Pt reports PT has been working with him and plans to go to [facility]. When asked about available recovery options/supports, pt states I'm not even thinking about alcohol. I just want to get my leg better. I can't even get it anyway, I can't drive. Pt does acknowledge that not being able to drive has not been a barrier in the past. Pt deflects further conversation regarding recovery and alcohol use. T/w available as needed.
--- NOTE | 2021-06-01 13:59 | HO.PM.IMPN ---
Subjective Subjective Date of Service: 06/01/21 Interval History: the patient was seen and evaluated this morning Waiting on placement No other overnight events reported Systemic review: No fever, chills but reports generalized weakness and difficulty ambulation No chest pain, palpitation No shortness of breath or coughing No abdominal pain, nausea or vomiting No urinary symptoms No any rash or wounds Physical Exam Vital Signs: Vital Signs: Last Vital Signs Temp 97.6 F 06/01/21 10:55 Pulse 84 06/01/21 12:02 Resp 20 06/01/21 10:55 BP 102/64 06/01/21 12:02 Pulse Ox 96 06/01/21 12:02 Body Mass Index 24.5 Const: Other: Constitutional : Alert, oriented, interactive Neck : Normal inspection, Supple Cardiovascular : RRR, S1 S2, no lower extremity edema Respiratory : Fair bilateral air entry, no crackles Gastrointestinal: soft, lax, Normal bowel sounds, Non tender Skin : Warm, Dry Neurological : Alert & oriented x3, No focal deficit Objective Data Active Medications Acetaminophen (Acetaminophen 325 Mg Tablet) 650 mg PO Q6H PRN PRN Reason: Pain, Mild (Pain Scale 1-3) Last Admin: 06/01/21 08:23 Dose: 650 mg Documented by: BIANKA Apixaban (Apixaban 5 Mg Tablet) 5 mg PO BID [facility] Last Admin: 06/01/21 08:20 Dose: 5 mg Documented by: BIANKA Digoxin (Digoxin 0.125 Mg Tablet) 0.125 mg PO DAILY [facility] Last Admin: 06/01/21 08:19 Dose: 0.125 mg Documented by: BIANKA Folic Acid (Folic Acid 1 Mg Tablet) 1 mg PO DAILY [facility] Last Admin: 06/01/21 08:20 Dose: 1 mg Documented by: BIANKA Medication (No Benzodiazepines) 1 each MISCELLANE DAILY [facility] Melatonin (Melatonin 3 Mg Tablet) 6 mg PO BEDTIME PRN PRN Reason: Sleep Last Admin: 05/30/21 00:18 Dose: 6 mg Documented by: LUDA Metoprolol Succinate (Metoprolol Succinate Er 25 Mg Tab.Er.24h) 25 mg PO DAILY [facility]; Protocol Last Admin: 06/01/21 08:22 Dose: 25 mg Documented by: BIANKA Multivitamins/Vitamin C (Multivitamin Tablet) 1 tab PO DAILY [facility] Last Admin: 06/01/21 08:20 Dose: 1 tab Documented by: BIANKA Ondansetron HCl (Ondansetron Hcl 4 Mg/2 Ml Vial) 4 mg IVPUSH Q8H PRN PRN Reason: Nausea and Vomiting Sodium Chloride (0.9 % Sodium Chloride Flush 3 Ml Syringe) 3 ml IVFLUSH QSHIFT [facility] Last Admin: 06/01/21 08:19 Dose: 3 ml Documented by: BIANKA Thiamine HCl (Thiamine Hcl 100 Mg Tablet) 100 mg PO DAILY [facility] Last Admin: 06/01/21 08:20 Dose: 100 mg Documented by: BIANKA Labs CBC & Chem 7: 05/26/21 05:20 05/31/21 06:00 Assessment and Plan (1) Hyponatremia: Status: Acute (2) Physical deconditioning: Status: Acute (3) Acute on chronic systolic (congestive) heart failure: Status: Acute Assessment and Plan: 60 year old man admitted with acute congestive heart failure, COPD exacerbation and early alcohol withdrawal Hyponatremia Sodium improved to 132 Likely secondary to alcoholism, metolazone and Lasix Atrial fibrillation RVR secondary to heart failure, alcohol use Rate better controlled between 80-100 Continue digoxin Start metoprolol XR Cardiology input appreciated, to discharge on long-acting metoprolol Acute on chronic systolic CHF exacerbation Cardiomyopathy Echo showed EF of 17% Weaned off oxygen Change Lasix to p.o. Cardiology following, concern for thrombus COPD exacerbation Continue Xopenex Continue prednisone last day Alcohol withdrawal Resolved Received phenobarbitol protocol Hypomagnesemia. repleted Metabolic encephalopathy Secondary to alcohol withdrawal Resolved Avoid benzodiazepines DVT prophylaxis with heparin a Quality Stroke Does the patient have a stroke diagnosis?: No VTE Prior VTE?: No VTE Risk Level:: Medical - moderate - high VTE Device Contraindication: Treatment Not Indicated VTE Drug Contraindication: N/A - Med Ordered
[2021-06-02] VITALS (8 sets, daily range): BP systolic 97–122; BP diastolic 75–80; PULSE 68–92; RESP 18–20; TEMP 36.3–37; O2SAT 97–99
[2021-06-02] MEDS: 0.9 % Sodium Chloride Flush 3 ML SYRINGE IVFLUSH ×4 (00:24→21:01)
[2021-06-02] MEDS: Acetaminophen 325 MG TABLET 650 MG PO ×3 (00:30→21:44)
[2021-06-02] MEDS: Metoprolol Succinate ER 25 MG TAB.ER.24H PO (07:51)
[2021-06-02] MEDS: Folic Acid 1 MG TABLET PO (07:52)
[2021-06-02] MEDS: Thiamine HCL 100 MG TABLET PO (07:52)
[2021-06-02] MEDS: Furosemide 20 MG TABLET PO (07:52)
[2021-06-02] MEDS: Digoxin 0.125 MG TABLET PO (07:53)
[2021-06-02] MEDS: Multivitamin TABLET 1 TAB PO (07:53)
[2021-06-02] MEDS: Apixaban 5 MG TABLET PO ×2 (07:53→21:00)
--- NOTE | 2021-06-02 12:51 | P.PNIM_ITS ---
Subjective Subjective Date of Service: 06/02/21 Interval History: The patient was seen and evaluated this morning Waiting on placement No other overnight events reported Systemic review: No fever, chills but reports generalized weakness and difficulty ambulation No chest pain, palpitation No shortness of breath or coughing No abdominal pain, nausea or vomiting No urinary symptoms No any rash or wounds Physical Exam Vital Signs: Vital Signs: Last Vital Signs Temp 97.3 F 06/02/21 11:43 Pulse 92 06/02/21 11:43 Resp 20 06/02/21 11:43 BP 97/80 06/02/21 11:43 Pulse Ox 97 06/02/21 11:43 Body Mass Index 24.5 Const: Other: Constitutional : Alert, oriented, interactive Neck : Normal inspection, Supple Cardiovascular : RRR, S1 S2, no lower extremity edema Respiratory : Fair bilateral air entry, no crackles Gastrointestinal: soft, lax, Normal bowel sounds, Non tender Skin : Warm, Dry Neurological : Alert & oriented x3, No focal deficit Objective Data Active Medications Acetaminophen (Acetaminophen 325 Mg Tablet) 650 mg PO Q6H PRN PRN Reason: Pain, Mild (Pain Scale 1-3) Last Admin: 06/02/21 07:51 Dose: 650 mg Documented by: BIANKA Apixaban (Apixaban 5 Mg Tablet) 5 mg PO BID [facility] Last Admin: 06/02/21 07:53 Dose: 5 mg Documented by: BIANKA Digoxin (Digoxin 0.125 Mg Tablet) 0.125 mg PO DAILY [facility] Last Admin: 06/02/21 07:53 Dose: 0.125 mg Documented by: BIANKA Folic Acid (Folic Acid 1 Mg Tablet) 1 mg PO DAILY [facility] Last Admin: 06/02/21 07:52 Dose: 1 mg Documented by: BIANKA Furosemide (Furosemide 20 Mg Tablet) 20 mg PO DAILY [facility]; Protocol Last Admin: 06/02/21 07:52 Dose: 20 mg Documented by: BIANKA Medication (No Benzodiazepines) 1 each MISCELLANE DAILY [facility] Melatonin (Melatonin 3 Mg Tablet) 6 mg PO BEDTIME PRN PRN Reason: Sleep Last Admin: 05/30/21 00:18 Dose: 6 mg Documented by: LUDA Metoprolol Succinate (Metoprolol Succinate Er 25 Mg Tab.Er.24h) 25 mg PO DAILY [facility]; Protocol Last Admin: 06/02/21 07:51 Dose: 25 mg Documented by: BIANKA Multivitamins/Vitamin C (Multivitamin Tablet) 1 tab PO DAILY [facility] Last Admin: 06/02/21 07:53 Dose: 1 tab Documented by: BIANKA Ondansetron HCl (Ondansetron Hcl 4 Mg/2 Ml Vial) 4 mg IVPUSH Q8H PRN PRN Reason: Nausea and Vomiting Sodium Chloride (0.9 % Sodium Chloride Flush 3 Ml Syringe) 3 ml IVFLUSH QSHIFT [facility] Last Admin: 06/02/21 07:53 Dose: 3 ml Documented by: BIANKA Thiamine HCl (Thiamine Hcl 100 Mg Tablet) 100 mg PO DAILY [facility] Last Admin: 06/02/21 07:52 Dose: 100 mg Documented by: BIANKA Labs CBC & Chem 7: 05/26/21 05:20 05/31/21 06:00 Assessment and Plan (1) Hyponatremia: Status: Acute (2) Physical deconditioning: Status: Acute (3) Alcohol withdrawal: Status: Acute (4) Atrial fibrillation with rapid ventricular response: Status: Acute Assessment and Plan: 60 year old man admitted with acute congestive heart failure, COPD exacerbation and early alcohol withdrawal Hyponatremia Sodium improved to 132 secondary to alcoholism, metolazone and Lasix Atrial fibrillation RVR secondary to heart failure, alcohol use Rate better controlled between 80-100 Continue digoxin metoprolol XR Cardiology input appreciated, to discharge on long-acting metoprolol Acute on chronic systolic CHF exacerbation Cardiomyopathy Echo showed EF of 17% Weaned off oxygen Change Lasix to p.o. Cardiology following, concern for thrombus COPD exacerbation Continue Xopenex Continue prednisone last day Alcohol withdrawal Resolved Received phenobarbitol protocol DVT prophylaxis with heparin a Quality Stroke Does the patient have a stroke diagnosis?: No VTE Prior VTE?: No VTE Risk Level:: Medical - moderate - high VTE Device Contraindication: Treatment Not Indicated VTE Drug Contraindication: N/A - Med Ordered
--- NOTE | 2021-06-02 14:35 | MHC.CM.PN ---
Male 60 DX HF AFIB RVR ETOH. Unvaccinated patient bed search in progress. There is no bed available today. Will resume search in am. PT note continues to recommend STR. Some improvment was noted today. The Patients sister was contacted. She stated that she works and he would be alone. She refuses to take him home. CM will continue bed search.
[2021-06-03] VITALS (8 sets, daily range): BP systolic 97–134; BP diastolic 68–89; PULSE 71–99; RESP 18–20; TEMP 36.4–37.2; O2SAT 95–99
[2021-06-03] MEDS: Thiamine HCL 100 MG TABLET PO (09:36)
[2021-06-03] MEDS: Multivitamin TABLET 1 TAB PO (09:36)
[2021-06-03] MEDS: Folic Acid 1 MG TABLET PO (09:36)
[2021-06-03] MEDS: Furosemide 20 MG TABLET PO (09:36)
[2021-06-03] MEDS: Digoxin 0.125 MG TABLET PO (09:36)
[2021-06-03] MEDS: 0.9 % Sodium Chloride Flush 3 ML SYRINGE IVFLUSH ×3 (09:36→19:44)
[2021-06-03] MEDS: Metoprolol Succinate ER 25 MG TAB.ER.24H PO (09:36)
[2021-06-03] MEDS: Apixaban 5 MG TABLET PO ×2 (09:36→19:44)
[2021-06-03 11:55] LABS: COVID-19 Test Negative (Negative); IDNOW Serial# 08D9AD1C
--- NOTE | 2021-06-03 12:29 | P.PNIM_ITS ---
Subjective Subjective Date of Service: 06/03/21 Interval History: Patient being followed for atrial fibrillation/RVR, alcohol abuse and withdrawal, patient complaining of left knee pain, wants to ambulate more while in the hospital, has been scheduled to go to rehab. He denies chest pain, no shortness of breath, no palpitation however tele monitor showed AFib with RVR heart rate fluctuating from 140-170 range symptoms just started couple hours ago. Had no overnight issues with tachycardia. No nausea no vomiting no fever, no shortness of breath. Review of Systems General no headache, no dizziness no fever chills. CVS no chest pain, no palpitation. Respiratory no cough no sob. Gastrointestinal no nausea, no vomiting, no abdominal pain Musculoskeletal left knee pain. Physical Exam Vital Signs: Vital Signs: Last Vital Signs Temp 98.2 F 06/03/21 10:57 Pulse 85 06/03/21 11:41 Resp 20 06/03/21 10:57 BP 97/73 06/03/21 11:41 Pulse Ox 98 06/03/21 11:41 Body Mass Index 24.5 General resting comfortably in no acute distress. Neck supple no JVD. CVS irregular rate rhythm,no m/r/g Respiratory lungs clear to auscultation, no respiratory distress, no wheeze, no rhonchi. Gastrointestinal abdomen soft, nontender, bowel sounds audible, no guarding , no rigidity. Extremities no edema. Neuro nonfocal, patient moving all 4 extremity speech clear. Skin no rash Left knee normal exam Objective Data Active Medications Acetaminophen (Acetaminophen 325 Mg Tablet) 650 mg PO Q6H PRN PRN Reason: Pain, Mild (Pain Scale 1-3) Last Admin: 06/02/21 21:44 Dose: 650 mg Documented by: BREONNA Apixaban (Apixaban 5 Mg Tablet) 5 mg PO BID [facility] Last Admin: 06/03/21 09:36 Dose: 5 mg Documented by: MINESH Digoxin (Digoxin 0.125 Mg Tablet) 0.125 mg PO DAILY [facility] Last Admin: 06/03/21 09:36 Dose: 0.125 mg Documented by: MINESH Folic Acid (Folic Acid 1 Mg Tablet) 1 mg PO DAILY [facility] Last Admin: 06/03/21 09:36 Dose: 1 mg Documented by: MINESH Furosemide (Furosemide 20 Mg Tablet) 20 mg PO DAILY [facility]; Protocol Last Admin: 06/03/21 09:36 Dose: 20 mg Documented by: MINESH Sodium Chloride (Ns) 1,000 mls @ 125 mls/hr IVCONT .Q8H [facility] Stop: 06/03/21 16:29 Medication (No Benzodiazepines) 1 each MISCELLANE DAILY [facility] Melatonin (Melatonin 3 Mg Tablet) 6 mg PO BEDTIME PRN PRN Reason: Sleep Last Admin: 05/30/21 00:18 Dose: 6 mg Documented by: LUDA Metoprolol Succinate (Metoprolol Succinate Er 25 Mg Tab.Er.24h) 25 mg PO DAILY [facility]; Protocol Last Admin: 06/03/21 09:36 Dose: 25 mg Documented by: MINESH Multivitamins/Vitamin C (Multivitamin Tablet) 1 tab PO DAILY [facility] Last Admin: 06/03/21 09:36 Dose: 1 tab Documented by: MINESH Ondansetron HCl (Ondansetron Hcl 4 Mg/2 Ml Vial) 4 mg IVPUSH Q8H PRN PRN Reason: Nausea and Vomiting Sodium Chloride (0.9 % Sodium Chloride Flush 3 Ml Syringe) 3 ml IVFLUSH QSHIFT [facility] Last Admin: 06/03/21 09:36 Dose: 3 ml Documented by: MINESH Thiamine HCl (Thiamine Hcl 100 Mg Tablet) 100 mg PO DAILY [facility] Last Admin: 06/03/21 09:36 Dose: 100 mg Documented by: MINESH Labs CBC & Chem 7: 05/26/21 05:20 05/31/21 06:00 Labs: Laboratory Results - last 24 hr 06/03/21 11:06 COVID-19 (JAMAR) Negative COVID-19 Clin Com See Note Assessment and Plan (1) Hyponatremia: Status: Acute (2) Physical deconditioning: Status: Acute (3) Acute on chronic systolic (congestive) heart failure: Status: Acute (4) Alcohol withdrawal: Status: Acute (5) Alcohol abuse: Status: Acute (6) Hypomagnesemia: Status: Acute (7) Atrial fibrillation with rapid ventricular response: Status: Acute (8) Apical mural thrombus: Status: Acute Assessment and Plan: 60 year old man admitted with acute congestive heart failure, COPD exacerbation and early alcohol withdrawal Atrial fibrillation RVR Patient noted to have AFib with rapid ventricular rate fluctuating 140-170 range patient asymptomatic with no chest pain, no shortness of breath or palpitation Question cause for recurrent a fib with RVR, question dehydration ,electrolyte abnormality Will give IV fluid 500 mL check BMP, magnesium and CBC Continue digoxin 0.125, metoprolol XR 25 mg, will give 1 dose of IV metoprolol once BP stabilizes Continue Eliquis for apical thrombus Case discussed with Cardiology they recommend to increase dose of metoprolol XR to 25 b.i.d. if BP allows Acute on chronic systolic CHF exacerbation Due to Cardiomyopathy,Echo showed EF of 17% question alcoholic cardiomyopathy need outpatient ischemic workup On by mouth Lasix 20 mg daily appears euvolemic, bicarb trending up Will need close outpatient cardiology workup Hyponatremia Sodium improved to 132, secondary to alcoholism COPD exacerbation No acute exacerbation this a.m., will place on as needed Xopenex will DC prednisone Alcohol withdrawal Resolved s/p phenobarbitol protocol Is strongly recommend to abstain from alcohol continue thiamine and folic acid,seen by recvery team DVT prophylaxis with Eliquis Quality Stroke Does the patient have a stroke diagnosis?: No VTE Prior VTE?: No VTE Risk Level:: Medical - moderate - high VTE Device Contraindication: Treatment Not Indicated VTE Drug Contraindication: N/A - Med Ordered
[2021-06-03 13:07] LABS: Hematocrit 36.6 % (42-52); Hemoglobin 12.1 g/dl (14.0-18.0); Mean Corpuscular HGB Conc 33.1 g/dl (31.0-36.0); Mean Corpuscular Hemoglobin 30.6 pg (27.0-33.0); Mean Corpuscular Volume 92.7 fL (80-98); Mean Platelet Volume 8.7 fL (9.4-12.4); Platelet Count 280 X10*3/uL (160-400); Red Blood Count 3.95 X10*6/uL (4.60-5.80); Red Cell Distribution Width 13.9 % (11.0-16.0); White Blood Count 6.6 X10*3/uL (4.8-10.8)
--- NOTE | 2021-06-03 13:08 | P.PNCA_ITS ---
Subjective Subjective Date of Service: 06/03/21 Principal diagnosis: Afib RVR, CMP, acute systolic CHF Interval history: Cardiology follow up for the above. Seen at 1300. Today he is awake, appropriate. Denies feeling any heart palpitations. Denies shortness of breath or chest discomfort. States he was walking in room with therapist and walker earlier today and tolerated it well. Review of Systems Review of Systems as above Yes all other systems are reviewed and are negative Physical Exam Vital Signs: Last Vital Signs Temp 98.2 F 06/03/21 10:57 Pulse 85 06/03/21 11:41 Resp 20 06/03/21 10:57 BP 97/73 06/03/21 11:41 Pulse Ox 98 06/03/21 11:41 Body Mass Index 24.5 Const General: cooperative, no acute distress, alert and awake Orientation/consciousness: patient oriented x3 Neck Neck: Yes normal visual inspection and Yes no JVD Resp Effort & Inspection: normal respiratory effort, able to speak in complete sentences and not labored Auscultation: clear to auscultation bilaterally, no rales, no rhonchi and no wheezes Cardio Palpation: normal PMI Rate: tachycardic Rhythm: abnormal rhythm (irregularly irregular) Heart sounds: S1 normal heart sound present and S2 normal heart sound present Peripheral pulses: Peripheral pulses 2+ throughout GI Inspection: Yes normal to inspection Neuro General: patient oriented x3 Extrem Other: has tenting of skin on arms General: Yes normal to inspection and No edema Results Labs and Meds Result diagrams: 05/26/21 05:20 05/31/21 06:00 Lab results: Laboratory Results - last 24 hr 06/03/21 11:06 COVID-19 (JAMAR) Negative COVID-19 Clin Com See Note Progress Note: A&P Assessment and plan (1) Atrial fibrillation with rapid ventricular response: Status: Acute Assessment and Plan: New finding afib RVR on admit. Treated with Metoprolol and Digoxin for rate control. Rates elevated at this time, up to 130-160, Usual rates 80- low 100s. No report of palpitations. No clinical signs of decompensated HF on exam. BP on low side at 97/73. Denies dizziness when up walking today. Fluid balance is Neg 8600 cc this admit. Spoke with Hospitalist. IV fluid bolus ordered and she has ordered stat labs including CBC, BMP, BNP. Electrolyte replacement as warranted. Avoid use of Diltiazem on him due to CMP with EF 17%. If BP allows, Increase Metoprolol XL to 25mg bid, instead of once daily. Continue to use the Metoprolol XL as it needed for his CMP tx. Continue Eliquis for anticoagulation. Ongoing tele monitoring. Dig level in am, ordered. (2) Cardiomyopathy: Status: Acute Assessment and Plan: Severe CMP with EF 17%. Unknown if this is ischemic or not. Trop was normal this admit. EKG showed Afib RVR, RBBB, no ischemia. His CMP may be alcohol induced. Will need further eval as outpt. Started on Metoprolol xl for neurohormonal modulation. Home lisinopril on hold due to BP on low side. Can re start prior to discharge if BP allows. Entresto can be considered as outpt if he comes for follow up. (3) Acute on chronic systolic (congestive) heart failure: Status: Acute Assessment and Plan: SOB on admit. CT of chest showed a moderate right and small to mod left pleural effusion. EF 17%. He was diuresed and fluid balance neg 8600cc. No signs of ac [place] HF on exam today. Seems dry, getting IV fluid bolus as above. Continue low dose Lasix. (4) Apical mural thrombus: Status: Acute Assessment and Plan: Possible apical thrombus seen on echo. On Eliquis for his afib and possible thrombus. (5) Alcohol withdrawal: Status: Acute Assessment and Plan: managed by hospitalist. Seems improved. Fall Risk Details Current Medications: Current Medications Generic Name Dose Route Start Last Admin Trade Name Hollisq PRN Reason Stop Dose Admin Acetaminophen 650 mg 05/24/21 14:24 06/02/21 21:44 Acetaminophen 325 Mg Tablet PO 650 mg Q6H PRN Administration Pain, Mild (Pain Scale 1-3) Apixaban 5 mg 05/25/21 21:00 06/03/21 09:36 Apixaban 5 Mg Tablet PO 5 mg BID DUANE Administration Digoxin 0.125 mg 05/29/21 09:00 06/03/21 09:36 Digoxin 0.125 Mg Tablet PO 0.125 mg DAILY DUANE Administration Folic Acid 1 mg 05/27/21 09:00 06/03/21 09:36 Folic Acid 1 Mg Tablet PO 1 mg DAILY DU[facility] Administration Furosemide 20 mg 06/02/21 09:00 06/03/21 09:36 Furosemide 20 Mg Tablet PO 20 mg DAILY [facility] Administration Protocol Sodium Chloride 500 mls @ 125 mls/hr 06/03/21 13:15 Ns IVCONT 06/03/21 17:14 .Q4H DUANE Medication 1 each 05/24/21 09:00 No Benzodiazepines MISCELLANE DAILY DUANE Melatonin 6 mg 05/24/21 18:12 05/30/21 00:18 Melatonin 3 Mg Tablet PO 6 mg BEDTIME PRN Administration Sleep Metoprolol Succinate 25 mg 06/01/21 09:00 06/03/21 09:36 Metoprolol Succinate Er 25 Mg Tab.Er.24h PO 25 mg DAILY [facility] Administration Protocol Multivitamins/Vitamin C 1 tab 05/27/21 09:00 06/03/21 09:36 Multivitamin Tablet PO 1 tab DAILY [facility] Administration Ondansetron HCl 4 mg 05/24/21 14:24 Ondansetron Hcl 4 Mg/2 Ml Vial IVPUSH Q8H PRN Nausea and Vomiting Sodium Chloride 3 ml 05/24/21 16:00 06/03/21 09:36 0.9 % Sodium Chloride Flush 3 Ml Syringe IVFLUSH 3 ml QSHIFT DUANE Administration Thiamine HCl 100 mg 05/27/21 09:00 06/03/21 09:36 Thiamine Hcl 100 Mg Tablet PO 100 mg DAILY [facility] Administration Time Spent With Patient Time: Total time spent is greater than 50% in coordination of care (as documented) at patient's floor/unit and/or counseling patient: Time with patient: 25 - 35 minutes Progress Note: Quality Stroke Does the patient have a stroke diagnosis?: No Procedures Date of Service Date of Service: 06/03/21
[2021-06-03] MEDS: 0.9 % Sodium Chloride 1,000 ML 125 ML IVCONT (13:16)
[2021-06-03 13:30] LABS: Magnesium 1.6 mg/dL (1.6-2.6)
[2021-06-03 13:36] LABS: B Type Natriuretic Peptide 1976 pg/mL (<100)
[2021-06-03 13:38] LABS: Anion Gap 14 (12-20); Blood Urea Nitrogen 13 mg/dL (9-16); Carbon Dioxide 30 mmol/L (22-29); Chloride 94 mmol/L (96-108); Estimated Glomerular Filt Rate > 60; Glucose Random 114 mg/dL (60-115); Potassium 4.6 mmol/L (3.3-5.1); Sodium 133 mmol/L (135-145)
[2021-06-04] VITALS (9 sets, daily range): BP systolic 100–136; BP diastolic 71–100; PULSE 85–113; RESP 18–20; TEMP 36.2–36.8; O2SAT 96–100
[2021-06-04 08:49] LABS: Digoxin 0.4 ng/mL (0.8-2.0)
[2021-06-04] MEDS: Digoxin 0.125 MG TABLET PO (09:22)
[2021-06-04] MEDS: Multivitamin TABLET 1 TAB PO (09:22)
[2021-06-04] MEDS: 0.9 % Sodium Chloride Flush 3 ML SYRINGE IVFLUSH ×3 (09:22→21:38)
[2021-06-04] MEDS: Furosemide 20 MG TABLET PO (09:23)
[2021-06-04] MEDS: Apixaban 5 MG TABLET PO ×2 (09:23→21:34)
[2021-06-04] MEDS: Folic Acid 1 MG TABLET PO (09:23)
[2021-06-04] MEDS: Metoprolol Succinate ER 25 MG TAB.ER.24H PO ×2 (09:23→21:34)
[2021-06-04] MEDS: Thiamine HCL 100 MG TABLET PO (09:24)
--- NOTE | 2021-06-04 11:12 | PM.PNCARD ---
Subjective Subjective Date of Service: 06/04/21 Principal diagnosis: Afib RVR, CMP, acute systolic CHF Interval history: Cardiology follow up for the above. Seen at 0930. Today is observed resting quietly in bed. He reports sleeping well. No concerning symptoms. No cp, sob, palpitation, dizziness, edema. Has walked to BR and tolerates well. Review of Systems Review of Systems as above Yes all other systems are reviewed and are negative Physical Exam Vital Signs: Last Vital Signs Temp 97.6 F 06/04/21 07:27 Pulse 96 06/04/21 09:23 Resp 18 06/04/21 07:27 BP 100/72 06/04/21 09:23 Pulse Ox 98 06/04/21 07:27 Body Mass Index 24.5 Const General: cooperative, no acute distress, alert and awake Orientation/consciousness: patient oriented x3 Neck Neck: Yes normal visual inspection and Yes no JVD Resp Effort & Inspection: normal respiratory effort, able to speak in complete sentences and not labored Auscultation: clear to auscultation bilaterally, no rales, no rhonchi and no wheezes Cardio Palpation: normal PMI Rate: tachycardic Rhythm: abnormal rhythm (irregularly irregular) Heart sounds: S1 normal heart sound present and S2 normal heart sound present Peripheral pulses: Peripheral pulses 2+ throughout GI Inspection: Yes normal to inspection Neuro General: patient oriented x3 Extrem General: Yes normal to inspection and No edema Results Labs and Meds Result diagrams: 06/03/21 12:59 06/03/21 12:59 Lab results: Laboratory Results - last 24 hr 06/03/21 06/03/21 06/03/21 11:06 12:59 12:59 WBC 6.6 RBC 3.95 L Hgb 12.1 L Hct 36.6 L MCV 92.7 MCH 30.6 MCHC 33.1 RDW 13.9 Plt Count 280 D MPV 8.7 L Absolute Nucleated RBC 0.000 Nucleated RBC % (auto) 0.0 Sodium 133 L Potassium 4.6 D Chloride 94 L Carbon Dioxide 30 H Anion Gap 14 BUN 13 Creatinine 0.74 Estim Creat Clear Calc 98.0 Estimated GFR > 60 Random Glucose 114 D Calcium 9.0 Magnesium B-Natriuretic Peptide Digoxin COVID-19 (JAMAR) Negative COVID-19 Clin Com See Note 06/03/21 06/03/2121 12:59 12:59 06:43 WBC RBC Hgb Hct MCV MCH MCHC RDW Plt Count MPV Absolute Nucleated RBC Nucleated RBC % (auto) Sodium Potassium Chloride Carbon Dioxide Anion Gap BUN Creatinine Estim Creat Clear Calc Estimated GFR Random Glucose Calcium Magnesium 1.6 B-Natriuretic Peptide 1976 H Digoxin 0.4 L COVID-19 (JAMAR) COVID-19 Clin Com Progress Note: A&P Assessment and plan (1) Atrial fibrillation with rapid ventricular response: Status: Acute Assessment and Plan: New finding afib RVR on admit. Treated with Metoprolol and Digoxin for rate control. Heart rates not optimally controlled. Tele showing afib rates 90-120s, up to 140s with activity. No report of palpitations. No clinical signs of decompensated HF on exam. BP on low side at times, this am 100/72, during night was up to 136/80. Denies dizziness when up walking this am. Fluid balance is Neg 8500 cc this admit. Did recieve a fluid bolus yesterday as heart rate up and BP down. Do not use of Diltiazem on him due to CMP with EF 17%. Dig level this am 0.4. Continue current Digoxin. Will increase Metoprolol XL to 25mg bid, instead of once daily. Continue to use the Metoprolol XL as it needed for his CMP tx. Continue Eliquis for anticoagulation. Ongoing tele monitoring for another day. If rate better controlled, with resting heart rates < 100 and BP stable, then probable discharge tomorrow. We will arrange for outpt cardiology follow up. (2) Acute on chronic systolic (congestive) heart failure: Status: Acute Assessment and Plan: Severe CMP with EF 17%. Unknown if this is ischemic or not. Trop was normal this admit. EKG showed Afib RVR, RBBB, no ischemia. His CMP may be alcohol induced. Will need further eval as outpt. Started on Metoprolol xl for neurohormonal modulation. Home lisinopril on hold due to BP on low side.? Can re start prior to discharge if BP allows. Entresto can be considered as outpt if he comes for follow up. (3) Cardiomyopathy: Status: Acute Assessment and Plan: SOB on admit. CT of chest showed a moderate right and small to mod left pleural effusion. EF 17%. He was diuresed and fluid balance neg 8600cc. No signs of acute HF on exam today. Continue low dose Lasix. (4) Apical mural thrombus: Status: Acute Assessment and Plan: Possible apical thrombus seen on echo. On Eliquis for his afib and possible thrombus. (5) Alcohol withdrawal: Status: Acute Assessment and Plan: Improved. Managed by hospitalist. Fall Risk Details Current Medications: Current Medications Acetaminophen (Acetaminophen 325 Mg Tablet) 650 mg PO Q6H PRN PRN Reason: Pain, Mild (Pain Scale 1-3) Last Admin: 06/02/21 21:44 Dose: 650 mg Documented by: Apixaban (Apixaban 5 Mg Tablet) 5 mg PO BID [facility] Last Admin: 06/04/21 09:23 Dose: 5 mg Documented by: Digoxin (Digoxin 0.125 Mg Tablet) 0.125 mg PO DAILY [facility] Last Admin: 06/04/21 09:22 Dose: 0.125 mg Documented by: Folic Acid (Folic Acid 1 Mg Tablet) 1 mg PO DAILY [facility] Last Admin: 06/04/21 09:23 Dose: 1 mg Documented by: Furosemide (Furosemide 20 Mg Tablet) 20 mg PO DAILY [facility]; Protocol Last Admin: 06/04/21 09:23 Dose: 20 mg Documented by: Medication (No Benzodiazepines) 1 each MISCELLANE DAILY [facility] Melatonin (Melatonin 3 Mg Tablet) 6 mg PO BEDTIME PRN PRN Reason: Sleep Last Admin: 05/30/21 00:18 Dose: 6 mg Documented by: Metoprolol Succinate (Metoprolol Succinate Er 25 Mg Tab.Er.24h) 25 mg PO DAILY [facility]; Protocol Last Admin: 06/04/21 09:23 Dose: 25 mg Documented by: Multivitamins/Vitamin C (Multivitamin Tablet) 1 tab PO DAILY [facility] Last Admin: 06/04/21 09:22 Dose: 1 tab Documented by: Ondansetron HCl (Ondansetron Hcl 4 Mg/2 Ml Vial) 4 mg IVPUSH Q8H PRN PRN Reason: Nausea and Vomiting Sodium Chloride (0.9 % Sodium Chloride Flush 3 Ml Syringe) 3 ml IVFLUSH QSHIFT [facility] Last Admin: 06/04/21 09:22 Dose: 3 ml Documented by: Thiamine HCl (Thiamine Hcl 100 Mg Tablet) 100 mg PO DAILY [facility] Last Admin: 06/04/21 09:24 Dose: 100 mg Documented by: Time Spent With Patient Time: Total time spent is greater than 50% in coordination of care (as documented) at patient's floor/unit and/or counseling patient: Time with patient: 15 - 24 minutes Progress Note: Quality Stroke Does the patient have a stroke diagnosis?: No Procedures Date of Service Date of Service: 06/04/21
--- NOTE | 2021-06-04 12:33 | P.PNIM_ITS ---
Subjective Subjective Date of Service: 06/04/21 Interval History: presented with easy fatigueablitly, now reporting that he feels much much better, has been able to ambulate with much more energy, however, when he does that his heart rate does go up to the 140s, mostly asymptomatically. Cardiovascular Cardiovascular: Reports no additional cardiovascular complaints Respiratory Respiratory: Reports no additional respiratory complaints Physical Exam Vital Signs: Vital Signs: Last Vital Signs Temp 97.1 F 06/04/21 11:26 Pulse 98 06/04/21 11:26 Resp 20 06/04/21 11:26 BP 121/83 06/04/21 11:26 Pulse Ox 96 06/04/21 11:26 Body Mass Index 24.5 General: AO X 3, no acute distress Resp: CTA bilateral, no accessory muscles used CVS: S1,S2,Rapid irregular GI: soft, non tender, non distended Neuro: motor grossly intact, alert Psych: appropriate affect, appropriate insight Objective Data Active Medications Acetaminophen (Acetaminophen 325 Mg Tablet) 650 mg PO Q6H PRN PRN Reason: Pain, Mild (Pain Scale 1-3) Last Admin: 06/02/21 21:44 Dose: 650 mg Documented by: BREONAN Apixaban (Apixaban 5 Mg Tablet) 5 mg PO BID [facility] Last Admin: 06/04/21 09:23 Dose: 5 mg Documented by: HARDY Digoxin (Digoxin 0.125 Mg Tablet) 0.125 mg PO DAILY [facility] Last Admin: 06/04/21 09:22 Dose: 0.125 mg Documented by: HARDY Folic Acid (Folic Acid 1 Mg Tablet) 1 mg PO DAILY [facility] Last Admin: 06/04/21 09:23 Dose: 1 mg Documented by: HARDY Furosemide (Furosemide 20 Mg Tablet) 20 mg PO DAILY [facility]; Protocol Last Admin: 06/04/21 09:23 Dose: 20 mg Documented by: HARDY Medication (No Benzodiazepines) 1 each MISCELLANE DAILY [facility] Melatonin (Melatonin 3 Mg Tablet) 6 mg PO BEDTIME PRN PRN Reason: Sleep Last Admin: 05/30/21 00:18 Dose: 6 mg Documented by: LUDA Multivitamins/Vitamin C (Multivitamin Tablet) 1 tab PO DAILY [facility] Last Admin: 06/04/21 09:22 Dose: 1 tab Documented by: HARDY Ondansetron HCl (Ondansetron Hcl 4 Mg/2 Ml Vial) 4 mg IVPUSH Q8H PRN PRN Reason: Nausea and Vomiting Sodium Chloride (0.9 % Sodium Chloride Flush 3 Ml Syringe) 3 ml IVFLUSH QSHIFT [facility] Last Admin: 06/04/21 09:22 Dose: 3 ml Documented by: HARDY Thiamine HCl (Thiamine Hcl 100 Mg Tablet) 100 mg PO DAILY [facility] Last Admin: 06/04/21 09:24 Dose: 100 mg Documented by: HARDY Labs CBC & Chem 7: 06/03/21 12:59 06/03/21 12:59 Labs: Laboratory Results - last 24 hr 06/03/21 06/03/21 06/03/21 12:59 12:59 12:59 MCV 92.7 MCH 30.6 MCHC 33.1 RDW 13.9 Plt Count 280 D MPV 8.7 L Absolute Nucleated RBC 0.000 Nucleated RBC % (auto) 0.0 Anion Gap 14 Estim Creat Clear Calc 98.0 Estimated GFR > 60 Random Glucose 114 D Calcium 9.0 Magnesium 1.6 B-Natriuretic Peptide Digoxin 06/03/21 06/04/21 12:59 06:43 MCV MCH MCHC RDW Plt Count MPV Absolute Nucleated RBC Nucleated RBC % (auto) Anion Gap Estim Creat Clear Calc Estimated GFR Random Glucose Calcium Magnesium B-Natriuretic Peptide 1976 H Digoxin 0.4 L Assessment and Plan (1) Acute on chronic systolic (congestive) heart failure: Status: Acute (2) Alcohol withdrawal: Status: Acute (3) Atrial fibrillation with rapid ventricular response: Status: Acute (4) Apical mural thrombus: Status: Acute (5) Physical deconditioning: Status: Acute Assessment and Plan: 60 year old man admitted with sob found to have acute congestive heart failure, COPD exacerbation and early alcohol withdrawal Atrial fibrillation RVR continues to have increased rates, especially on exertion Continue digoxin 0.125, metoprolol XR 25 mg increased to bid Case discussed with Cardiology eliquis apical thrombus continue eliquis Acute on chronic systolic CHF exacerbation Due to Cardiomyopathy,Echo showed EF of 17% question alcoholic cardiomyopathy needs outpatient ischemic workup diuresed well now on po Lasix 20 mg daily appears euvolemic, Hyponatremia Sodium improved to 133, secondary to alcoholism COPD exacerbation resolved continue prn nebs Alcohol dependence with withdrawal Resolved s/p phenobarbitol protocol Is strongly recommend to abstain from alcohol continue thiamine and folic acid,seen by recovery team DVT prophylaxis with [facility] Stroke Does the patient have a stroke diagnosis?: No VTE Prior VTE?: No VTE Risk Level:: Medical - moderate - high VTE Device Contraindication: Treatment Not Indicated VTE Drug Contraindication: N/A - Med Ordered
--- NOTE | 2021-06-04 12:52 | MHC.CM.PN ---
per rounds pts meds continue to be readjusted n dc this weekend ?earlene next week
[2021-06-04] MEDS: Melatonin 3 MG TABLET 6 MG PO (21:40)
[2021-06-05] VITALS (10 sets, daily range): BP systolic 108–139; BP diastolic 77–84; PULSE 62–101; RESP 14–20; TEMP 36.5–37.1; O2SAT 97–100
[2021-06-05 06:31] LABS: Hematocrit 34.9 % (42-52); Hemoglobin 11.4 g/dl (14.0-18.0); Mean Corpuscular HGB Conc 32.7 g/dl (31.0-36.0); Mean Corpuscular Hemoglobin 30.3 pg (27.0-33.0); Mean Corpuscular Volume 92.8 fL (80-98); Platelet Count 339 X10*3/uL (160-400); Red Blood Count 3.76 X10*6/uL (4.60-5.80); Red Cell Distribution Width 13.9 % (11.0-16.0); White Blood Count 6.2 X10*3/uL (4.8-10.8)
[2021-06-05 07:06] LABS: Anion Gap 12 (12-20); Blood Urea Nitrogen 12 mg/dL (9-16); Calcium 8.7 mg/dL (8.4-10.2); Carbon Dioxide 28 mmol/L (22-29); Chloride 101 mmol/L (96-108); Creatinine Clr Calc Pharmacy 108.2; Estimated Glomerular Filt Rate > 60; Glucose Fasting 100 mg/dL (60-99); Potassium 4.6 mmol/L (3.3-5.1); Sodium 136 mmol/L (135-145)
[2021-06-05] MEDS: Furosemide 20 MG TABLET PO (10:54)
[2021-06-05] MEDS: Apixaban 5 MG TABLET PO ×2 (10:54→20:14)
[2021-06-05] MEDS: Folic Acid 1 MG TABLET PO (10:54)
[2021-06-05] MEDS: Digoxin 0.125 MG TABLET PO (10:54)
[2021-06-05] MEDS: Thiamine HCL 100 MG TABLET PO (10:54)
[2021-06-05] MEDS: 0.9 % Sodium Chloride Flush 3 ML SYRINGE IVFLUSH (10:55)
[2021-06-05] MEDS: Metoprolol Succinate ER 25 MG TAB.ER.24H PO ×2 (10:55→20:14)
[2021-06-05] MEDS: Multivitamin TABLET 1 TAB PO (10:55)
--- NOTE | 2021-06-05 11:11 | P.PNIM_ITS ---
Subjective Subjective Date of Service: 06/05/21 Interval History: cc: sob interval history: feeling better, able to ambulate with some help, did go up to heart rate 150s on ambulation but didnt feel it Respiratory Respiratory: Reports no additional respiratory complaints Gastrointestinal Gastrointestinal: Reports no additional gastrointestinal complaints Physical Exam Vital Signs: Vital Signs: Last Vital Signs Temp 98.1 F 06/05/21 07:31 Pulse 94 06/05/21 10:55 Resp 20 06/05/21 07:31 BP 130/82 06/05/21 10:55 Pulse Ox 99 06/05/21 07:31 Body Mass Index 24.5 General: AO X 3, no acute distress Resp:? CTA bilateral, no accessory muscles used CVS: S1,S2, irregular GI: soft, non tender, non distended Neuro:? motor grossly intact, alert Psych: appropriate affect, appropriate insight? Objective Data Active Medications Acetaminophen (Acetaminophen 325 Mg Tablet) 650 mg PO Q6H PRN PRN Reason: Pain, Mild (Pain Scale 1-3) Last Admin: 06/02/21 21:44 Dose: 650 mg Documented by: BREONNA Apixaban (Apixaban 5 Mg Tablet) 5 mg PO BID [facility] Last Admin: 06/05/21 10:54 Dose: 5 mg Documented by: LEONARDO Digoxin (Digoxin 0.125 Mg Tablet) 0.125 mg PO DAILY [facility] Last Admin: 06/05/21 10:54 Dose: 0.125 mg Documented by: LEONARDO Folic Acid (Folic Acid 1 Mg Tablet) 1 mg PO DAILY [facility] Last Admin: 06/05/21 10:54 Dose: 1 mg Documented by: LEONARDO Furosemide (Furosemide 20 Mg Tablet) 20 mg PO DAILY [facility]; Protocol Last Admin: 06/05/21 10:54 Dose: 20 mg Documented by: LEONARDO Medication (No Benzodiazepines) 1 each MISCELLANE DAILY [facility] Melatonin (Melatonin 3 Mg Tablet) 6 mg PO BEDTIME PRN PRN Reason: Sleep Last Admin: 06/04/21 21:40 Dose: 6 mg Documented by: QUOC Metoprolol Succinate (Metoprolol Succinate Er 25 Mg Tab.Er.24h) 25 mg PO BID [facility]; Protocol Last Admin: 06/05/21 10:55 Dose: 25 mg Documented by: LEONARDO Multivitamins/Vitamin C (Multivitamin Tablet) 1 tab PO DAILY [facility] Last Admin: 06/05/21 10:55 Dose: 1 tab Documented by: LEONARDO Ondansetron HCl (Ondansetron Hcl 4 Mg/2 Ml Vial) 4 mg IVPUSH Q8H PRN PRN Reason: Nausea and Vomiting Sodium Chloride (0.9 % Sodium Chloride Flush 3 Ml Syringe) 3 ml IVFLUSH QSHIFT [facility] Last Admin: 06/05/21 10:55 Dose: 3 ml Documented by: LEONARDO Thiamine HCl (Thiamine Hcl 100 Mg Tablet) 100 mg PO DAILY [facility] Last Admin: 06/05/21 10:54 Dose: 100 mg Documented by: LEONARDO Labs CBC & Chem 7: 06/05/21 06:00 06/05/21 06:00 Labs: Laboratory Results - last 24 hr 06/05/21 06/05/21 06:00 06:00 MCV 92.8 MCH 30.3 MCHC 32.7 RDW 13.9 Plt Count 339 MPV 9.0 L Absolute Nucleated RBC 0.000 Nucleated RBC % (auto) 0.0 Anion Gap 12 Estim Creat Clear Calc 108.2 Estimated GFR > 60 Fasting Glucose 100 H Calcium 8.7 Assessment and Plan (1) Acute on chronic systolic (congestive) heart failure: Status: Acute (2) Alcohol withdrawal: Status: Acute (3) Atrial fibrillation with rapid ventricular response: Status: Acute (4) Apical mural thrombus: Status: Acute (5) Physical deconditioning: Status: Acute Assessment and Plan: 60 year old man admitted with sob found to have acute congestive heart failure, COPD exacerbation and early alcohol withdrawal Atrial fibrillation RVR continues to have increased rates, especially on exertion, though much improved Continue digoxin 0.125, metoprolol XR 25 mg increased to bid eliquis plan for discharge to SNF for STR to improve indurance/exercise tolerance/s afety/mobility, awaiting auth apical thrombus continue eliquis Acute on chronic systolic CHF exacerbation Due to Cardiomyopathy,Echo showed EF of 17% question alcoholic cardiomyopathy needs outpatient ischemic workup diuresed well now on po Lasix 20 mg daily appears euvolemic, Hyponatremia resolved COPD exacerbation resolved continue prn nebs Alcohol dependence with withdrawal Resolved s/p phenobarbitol protocol Is strongly recommend to abstain from alcohol continue thiamine and folic acid, seen by recovery team DVT prophylaxis with Eliquis Quality Stroke Does the patient have a stroke diagnosis?: No VTE Prior VTE?: No VTE Risk Level:: Medical - moderate - high VTE Device Contraindication: Treatment Not Indicated VTE Drug Contraindication: N/A - Med Ordered
[2021-06-06] VITALS (9 sets, daily range): BP systolic 102–142; BP diastolic 73–88; PULSE 56–108; RESP 14–20; TEMP 36.1–37; O2SAT 92–99
[2021-06-06] MEDS: 0.9 % Sodium Chloride Flush 3 ML SYRINGE IVFLUSH ×4 (01:08→20:27)
[2021-06-06] MEDS: Folic Acid 1 MG TABLET PO (08:35)
[2021-06-06] MEDS: Furosemide 20 MG TABLET PO (08:35)
[2021-06-06] MEDS: Metoprolol Succinate ER 25 MG TAB.ER.24H PO ×2 (08:36→20:27)
[2021-06-06] MEDS: Thiamine HCL 100 MG TABLET PO (08:36)
[2021-06-06] MEDS: Multivitamin TABLET 1 TAB PO ×2 (08:36→08:37)
[2021-06-06] MEDS: Apixaban 5 MG TABLET PO ×2 (08:36→20:27)
[2021-06-06] MEDS: Digoxin 0.125 MG TABLET PO (08:37)
[2021-06-06] MEDS: Acetaminophen 325 MG TABLET 650 MG PO (09:26)
--- NOTE | 2021-06-06 09:41 | HO.PM.IMPN ---
Subjective Subjective Date of Service: 06/06/21 Interval History: cc: sob interval history: stable, able to tolerate PT Cardiovascular Cardiovascular: Reports no additional cardiovascular complaints Respiratory Respiratory: Reports no additional respiratory complaints Physical Exam Vital Signs: Vital Signs: Last Vital Signs Temp 97.8 F 06/06/21 07:33 Pulse 108 H 06/06/21 08:37 Resp 20 06/06/21 07:33 BP 139/87 06/06/21 08:36 Pulse Ox 95 06/06/21 07:33 Body Mass Index 24.5 General: AO X 3, no acute distress Resp:? CTA bilateral, no accessory muscles used CVS: S1,S2, irregular GI: soft, non tender, non distended Neuro:? motor grossly intact, alert Psych: appropriate affect, appropriate insight? Objective Data Active Medications Acetaminophen (Acetaminophen 325 Mg Tablet) 650 mg PO Q6H PRN PRN Reason: Pain, Mild (Pain Scale 1-3) Last Admin: 06/06/21 09:26 Dose: 650 mg Documented by: NANDINI Apixaban (Apixaban 5 Mg Tablet) 5 mg PO BID [facility] Last Admin: 06/06/21 08:36 Dose: 5 mg Documented by: NANDINI Digoxin (Digoxin 0.125 Mg Tablet) 0.125 mg PO DAILY [facility] Last Admin: 06/06/21 08:37 Dose: 0.125 mg Documented by: NANDINI Folic Acid (Folic Acid 1 Mg Tablet) 1 mg PO DAILY [facility] Last Admin: 06/06/21 08:35 Dose: 1 mg Documented by: NANDINI Furosemide (Furosemide 20 Mg Tablet) 20 mg PO DAILY [facility]; Protocol Last Admin: 06/06/21 08:35 Dose: 20 mg Documented by: NANDINI Medication (No Benzodiazepines) 1 each MISCELLANE DAILY [facility] Melatonin (Melatonin 3 Mg Tablet) 6 mg PO BEDTIME PRN PRN Reason: Sleep Last Admin: 06/04/21 21:40 Dose: 6 mg Documented by: QUOC Metoprolol Succinate (Metoprolol Succinate Er 25 Mg Tab.Er.24h) 25 mg PO BID [facility]; Protocol Last Admin: 06/06/21 08:36 Dose: 25 mg Documented by: NANDINI Multivitamins/Vitamin C (Multivitamin Tablet) 1 tab PO DAILY [facility] Last Admin: 06/06/21 08:36 Dose: 1 tab Documented by: NANDINI Ondansetron HCl (Ondansetron Hcl 4 Mg/2 Ml Vial) 4 mg IVPUSH Q8H PRN PRN Reason: Nausea and Vomiting Sodium Chloride (0.9 % Sodium Chloride Flush 3 Ml Syringe) 3 ml IVFLUSH QSHIFT [facility] Last Admin: 06/06/21 08:35 Dose: 3 ml Documented by: NANDINI Thiamine HCl (Thiamine Hcl 100 Mg Tablet) 100 mg PO DAILY [facility] Last Admin: 06/06/21 08:36 Dose: 100 mg Documented by: NANDINI Labs CBC & Chem 7: 06/05/21 06:00 06/05/21 06:00 Assessment and Plan (1) Acute on chronic systolic (congestive) heart failure: Status: Acute (2) Alcohol withdrawal: Status: Acute (3) Atrial fibrillation with rapid ventricular response: Status: Acute (4) Apical mural thrombus: Status: Acute (5) Physical deconditioning: Status: Acute Assessment and Plan: 60 year old man admitted with sob found to have acute congestive heart failure, COPD exacerbation and early alcohol withdrawal Atrial fibrillation RVR continues to have increased rates, especially on exertion, though much improved and well controlled at rest Continue digoxin 0.125, metoprolol XR 25 mg increased to bid eliquis plan for discharge to SNF for STR to improve indurance/exercise tolerance/safety/mobility, awaiting auth apical thrombus continue eliquis Acute on chronic systolic CHF exacerbation Due to Cardiomyopathy,Echo showed EF of 17% question alcoholic cardiomyopathy needs outpatient ischemic workup diuresed well now on po Lasix 20 mg daily appears euvolemic, Hyponatremia resolved COPD exacerbation resolved continue prn nebs Alcohol dependence with withdrawal Resolved s/p phenobarbitol protocol Is strongly recommend to abstain from alcohol continue thiamine and folic acid,seen by recovery team DVT prophylaxis with Eliquis Quality Stroke Does the patient have a stroke diagnosis?: No VTE Prior VTE?: No VTE Risk Level:: Medical - moderate - high VTE Device Contraindication: Treatment Not Indicated VTE Drug Contraindication: N/A - Med Ordered
--- NOTE | 2021-06-06 12:45 | P.PNCA_ITS ---
Subjective Subjective Date of Service: 06/06/21 Principal diagnosis: Afib RVR, CMP, acute systolic CHF Interval history: Feeling good. No symptoms. AFib control is better on telemetry. Physical Exam Vital Signs: Last Vital Signs Temp 98.6 F 06/06/21 11:09 Pulse 85 06/06/21 11:09 Resp 18 06/06/21 11:09 BP 113/73 06/06/21 11:09 Pulse Ox 99 06/06/21 11:09 Body Mass Index 24.5 GENERAL APPEARANCE: in no acute distress, pleasant. NECK: no carotid bruit, no jugular venous distention. SKIN: no suspicious lesions, warm and dry. HEART: no murmurs, irregular rate and rhythm. LUNGS: clear to auscultation bilaterally. ABDOMEN: soft, nontender. EXTREMITIES: no edema. PERIPHERAL PULSES: equal. NEUROLOGIC: No gross deficits, AAO X 3 Results Labs and Meds Result diagrams: 06/05/21 06:00 06/05/21 06:00 Progress Note: A&P Assessment and plan (1) Cardiomyopathy: Status: Acute (2) Apical mural thrombus: Status: Acute (3) Atrial fibrillation with rapid ventricular response: Status: Acute Assessment and Plan: [age] gentleman with cardiomyopathy and concern for apical mural thrombus. He is on anticoagulation. Heart rate is better controlled with Toprol XL 25 mg twice a day and digoxin 0.125 mg daily. Clinically euvolemic at this stage. Signing off. Thank you for allowing me to participate in the care of your patient. Please feel free to contact me if you have any questions. Fall Risk Details Current Medications: Current Medications Acetaminophen (Acetaminophen 325 Mg Tablet) 650 mg PO Q6H PRN PRN Reason: Pain, Mild (Pain Scale 1-3) Last Admin: 06/06/21 09:26 Dose: 650 mg Documented by: Apixaban (Apixaban 5 Mg Tablet) 5 mg PO BID [facility] Last Admin: 06/06/21 08:36 Dose: 5 mg Documented by: Digoxin (Digoxin 0.125 Mg Tablet) 0.125 mg PO DAILY [facility] Last Admin: 06/06/21 08:37 Dose: 0.125 mg Documented by: Folic Acid (Folic Acid 1 Mg Tablet) 1 mg PO DAILY [facility] Last Admin: 06/06/21 08:35 Dose: 1 mg Documented by: Furosemide (Furosemide 20 Mg Tablet) 20 mg PO DAILY [facility]; Protocol Last Admin: 06/06/21 08:35 Dose: 20 mg Documented by: Medication (No Benzodiazepines) 1 each MISCELLANE DAILY [facility] Melatonin (Melatonin 3 Mg Tablet) 6 mg PO BEDTIME PRN PRN Reason: Sleep Last Admin: 06/04/21 21:40 Dose: 6 mg Documented by: Metoprolol Succinate (Metoprolol Succinate Er 25 Mg Tab.Er.24h) 25 mg PO BID [facility]; Protocol Last Admin: 06/06/21 08:36 Dose: 25 mg Documented by: Multivitamins/Vitamin C (Multivitamin Tablet) 1 tab PO DAILY [facility] Last Admin: 06/06/21 08:37 Dose: 1 tab Documented by: Ondansetron HCl (Ondansetron Hcl 4 Mg/2 Ml Vial) 4 mg IVPUSH Q8H PRN PRN Reason: Nausea and Vomiting Sodium Chloride (0.9 % Sodium Chloride Flush 3 Ml Syringe) 3 ml IVFLUSH QSHIFT [facility] Last Admin: 06/06/21 08:35 Dose: 3 ml Documented by: Thiamine HCl (Thiamine Hcl 100 Mg Tablet) 100 mg PO DAILY [facility] Last Admin: 06/06/21 08:36 Dose: 100 mg Documented by: Time Spent With Patient Time: Total time spent is greater than 50% in coordination of care (as documented) at patient's floor/unit and/or counseling patient: Time with patient: 15 - 24 minutes Progress Note: Quality Stroke Does the patient have a stroke diagnosis?: No Procedures Date of Service Date of Service: 06/06/21
[2021-06-07 04:00] VITALS: BP 133/94; PULSE 58; RESP 18; TEMP 36.8; O2SAT 98
[2021-06-07 07:04] VITALS: BP 133/81; PULSE 96; RESP 19; TEMP 36.6; O2SAT 100
[2021-06-07 10:02] VITALS: PULSE 96
[2021-06-07] MEDS: Folic Acid 1 MG TABLET PO (10:02)
[2021-06-07] MEDS: Apixaban 5 MG TABLET PO (10:02)
[2021-06-07] MEDS: Metoprolol Succinate ER 25 MG TAB.ER.24H PO (10:02)
[2021-06-07] MEDS: Furosemide 20 MG TABLET PO (10:02)
[2021-06-07] MEDS: Digoxin 0.125 MG TABLET PO (10:02)
[2021-06-07] MEDS: Thiamine HCL 100 MG TABLET PO (10:02)
[2021-06-07] MEDS: Multivitamin TABLET 1 TAB PO (10:02)
[2021-06-07] MEDS: 0.9 % Sodium Chloride Flush 3 ML SYRINGE IVFLUSH (10:03)
[2021-06-07 11:08] VITALS: BP 98/74; PULSE 100; RESP 18; TEMP 36.6; O2SAT 100
--- NOTE | 2021-06-07 11:58 | P.DS_ITS ---
DS: Providers Provider Date of Service: 06/07/21 Date of admission: 05/24/21 14:24 Primary care physician: [facility] Consults: 05/24/21 14:24 Consult to Cardiology Routine Consulting Provider: Kirill Ramirez Reason for consultation: chf Has provider been notified: No 05/26/21 16:28 Consult to Care Team Routine Comment: Reason for consultation: Alcohol abuse, risk of eviction 06/07/21 10:46 Consult to Care Team Routine Comment: Reason for consultation: etoh DS: Diagnosis Discharge Diagnosis (1) Cardiomyopathy: Status: Acute (2) Apical mural thrombus: Status: Acute (3) Atrial fibrillation with rapid ventricular response: Status: Acute DS: Summary Hospital Course Hospital Course: Patient was admitted for acute on chronic systolic CHF complicated by atrial fibrillation with rapid ventricular response, alcohol dependence with withdrawal, COPD exacerbation. For his atrial fibrillation it was eventually rate controlled with digoxin, Toprol 25 mg b.i.d. on echo was found to have EF 17% and apical thrombus, started on eliquis. For CHF he was diuresed with IV Lasix. He is transitioned to oral 20 mg Lasix daily and has been euvolemic on that. For COPD exacerbation was given steroids and nebulizers and has resolved. Firs with alcohol withdrawal he was treated with phenobarbital protocol and recovered. Initially plan was to transfer to skilled nurse facility for short- term rehab. However wall awaiting authorization patient's condition improved and appears to no longer require rehab, he will be discharged home. Time Spent with Patient Time attestation: Total time spent providing and/or coordinating discharge services: Discharge coordination time: Greater than 30 minutes Quality: Stroke Does the patient have a stroke diagnosis?: No Physical Exam Vital Signs: Vital Signs: Last Vital Signs Temp 98 F 06/07/21 11:08 Pulse 100 06/07/21 11:08 Resp 18 06/07/21 11:08 BP 98/74 06/07/21 11:08 Pulse Ox 100 06/07/21 11:08 Body Mass Index 24.5 General: AO X 3, no acute distress Resp:? CTA bilateral, no accessory muscles used CVS: S1,S2, irregular GI: soft, non tender, non distended Neuro:? motor grossly intact, alert Psych: appropriate affect, appropriate insight? Discharge Plan Discharge Patient Disposition: Home, Self-Care Discharge Diagnosis: afib, chf Referrals: [place] [Primary Care Provider] - 1 Week Discharge Medications: New Eliquis 5 mg Tablet 5 mg PO BID Qty: 60 RF: 0 multivitamin [Daily-Harry] Tablet 1 tab PO DAILY Qty: 30 RF: 0 folic acid 1 mg Tablet 1 mg PO DAILY Qty: 30 RF: 0 digoxin 125 mcg (0.125 mg) Tablet 0.125 mg PO DAILY Qty: 30 RF: 0 furosemide 20 mg Tablet 20 mg PO DAILY Qty: 30 RF: 0 metoprolol succinate 25 mg Tablet Extended Release 24 Hr 25 mg PO BID Qty: 60 RF: 0 thiamine mononitrate (vit B1) 100 mg Tablet 100 mg PO DAILY Qty: 30 RF: 0 Discontinued amlodipine 10 mg tablet 1 tab PO DAILY RF: 0 lisinopril 10 mg tablet 1 tab PO DAILY RF: 0 Discharge Orders: Discharge Order (Routine); Ordered 06/07/21 Ordered By: Rico Mccann Diet: advance to usual diet Activity on Discharge: As tolerated Stand Alone Forms: Patient Portal Discharge page Care Plan Goals: recovery Health Concerns: afib, chf Plan of Treatment: follow up cardio, meds as prescribed, avoid etoh Assessment: see above
--- NOTE | 2021-06-07 12:56 | MHC.CM.PN ---
pt no longer requires rehab ,pts sister does n ot want him back livivng with her ,pt spoke with her today..pt has chosen the [facility] to stay in the inter[place] taxi will take pt there..pt has outpt megan from thre recovery team to ASSIST HIM WITH HIS SOBRIETY TAXI VOUCHER GIVEN TO NURSE with phone number to [employer]
--- NOTE | 2021-06-07 14:01 | MHC.RECOVRN ---
T/w met with pt after finding out STR is not an option. Pt is looking for CSS level of care. Pt aware dc paperwork is already finished and likelihood of obtaining bed today would be near impossible. T/w spoke with pt and pts sister, Isabela, and explained immediate options. Pt decided to dc with information/phone numbers of CSS programs in [place]. Pt will f/u from home. Pts sister allowing pt to spend 1-2 days at her house in order to make CSS arrangements. CM aware.
== END 2021-06-07 15:57 | disposition home or self-care (01) | DRG 194 ==
LOC: HO.ED 12:35 → HO.EDOVER 14:35 → HO.IMC 17:24
PROVIDERS: Hospitalist; Nurse Practitioner Family; Student in an Organized Health Care Education/Training Program; Admitting Provider Nurse Practitioner Acute Care; Emergency Provider Emergency Medicine; Visit Provider Internal Medicine
DX: I11.0 Hypertensive heart disease with heart failure (principal); G93.41 Metabolic encephalopathy; E87.1 Hypo-osmolality and hyponatremia; I42.9 Cardiomyopathy, unspecified; I23.6 Thrombosis of atrium, auricular appendage, and ventricle as current complications following acute myocardial infarction; Z79.01 Long term (current) use of anticoagulants; I48.91 Unspecified atrial fibrillation; I50.23 Acute on chronic systolic (congestive) heart failure; J44.1 Chronic obstructive pulmonary disease with (acute) exacerbation; F10.239 Alcohol dependence with withdrawal, unspecified; E83.42 Hypomagnesemia; F17.210 Nicotine dependence, cigarettes, uncomplicated; Z71.6 Tobacco abuse counseling; Z20.822 Contact with and (suspected) exposure to COVID-19; Z88.6 Allergy status to analgesic agent; Z79.899 Other long term (current) drug therapy
CPT/HCPCS: 0241U; 36415; 71275; 80048; 80076; 80162; 81003; 82077; 82803; 83605; 83690; 83735; 83880; 84484; 85025; 85027; 85610; 85730; 87040; 87635; 93005; 93306; 93971; 94640; 94644; 96365; 96366; 96372; 96375; 97110; 97116; 97162; 99285; 99291; J0696; J1160; J1940; J2560; J2920; J2930; J3475; Q9957; Q9967

== ENCOUNTER → 2021-06-29 14:34 | Outpatient (BNVA) | payer OTHER, SELFPAY | PROVIDERS: PCP Nurse Practitioner Family; Referring Provider Nurse Practitioner Family; Visit Provider Nurse Practitioner Family | DX: I48.91 Unspecified atrial fibrillation (principal); I51.3 Intracardiac thrombosis, not elsewhere classified; I42.9 Cardiomyopathy, unspecified; I50.23 Acute on chronic systolic (congestive) heart failure; M79.606 Pain in leg, unspecified; F17.290 Nicotine dependence, other tobacco product, uncomplicated; Z88.8 Allergy status to other drugs, medicaments and biological substances; Z91.030 Bee allergy status; Z79.899 Other long term (current) drug therapy | CPT/HCPCS: 93005 ==

== ENCOUNTER → 2021-07-01 09:07 | Outpatient (BNVA) | payer OTHER, SELFPAY | PROVIDERS: PCP Nurse Practitioner Family; Referring Provider Nurse Practitioner Family; Visit Provider Nurse Practitioner Family ==

== ENCOUNTER 2021-07-24 13:22 | Inpatient (IN) | payer OTHER, SELFPAY ==
[2021-07-24] VITALS (31 sets, daily range): BP systolic 78–141; BP diastolic 52–94; PULSE 114–180; RESP 16–32; TEMP 36.4–36.6; O2SAT 94–98; BMI 24.8; BMI 26.4
--- NOTE | ~2021-07-24 | XR_ITS ---
EXAMINATION: PORTABLE CHEST 1 VIEW CLINICAL INFORMATION: sob . COMPARISON: 06/10/2019 rib films and the more recent 05/24/2021 CT scan. TECHNIQUE: Portable frontal view of the chest was obtained. FINDINGS: Small layering right pleural effusion is seen similar to the recent CT scan. There is mild bibasilar markings more likely reflecting a component of atelectasis. No overt edema or pneumothorax. Cardiac silhouette remains enlarged. No acute bony abnormality seen. XR/XR chest 1V IMPRESSION: Enlarged cardiac silhouette similar to the 05/24/2021 CT scan. Small layering right effusion and bibasilar atelectasis.
--- NOTE | ~2021-07-24 | XR_ITS ---
EXAMINATION: XR KNEE, LEFT CLINICAL INFORMATION: Pain and swelling COMPARISON: March 25, 2010 TECHNIQUE: AP and lateral views of the left knee. FINDINGS: No acute fracture or dislocation of the left knee is seen. The left knee joint spaces are maintained. There is minimal spurring undersurface of the patella. Some bony density adjacent to the medial femoral condyle is seen likely related to previous medial collateral ligament injury. There is a small knee effusion. Prominent vascular calcifications seen. XR/XR knee LT 2V IMPRESSION: Small left knee effusion. No significant acute bony abnormality appreciated.
--- NOTE | ~2021-07-24 | XR_ITS ---
EXAMINATION: XR CHEST CLINICAL INFORMATION: New central line COMPARISON: July 24, 2021 TECHNIQUE: AP portable view of the chest was obtained. FINDINGS: Since previous study a right internal jugular [place]-Fawn catheter has been placed. The tip of the catheter appears to lie within the peripheral right pulmonary artery and not centrally. No pneumothorax is seen. There is again noted to be a small right pleural effusion. The cardiopericardial silhouette is upper limits of normal in size. No evidence of pulmonary edema. Bronchial wall thickening is seen within the left lung without confluent pneumonitis appreciated. There are some regions of interstitial and airspace disease again seen within the right lung. XR/XR chest 1V IMPRESSION: Right internal jugular [place]-Fawn catheter with tip within the peripheral right pulmonary artery. No significant change in parenchymal disease. Stable small right pleural effusion.
--- NOTE | 2021-07-24 13:48 | ECG_ITS ---
Test Reason : REPEAT Blood Pressure : / mmHG Vent. Rate : 120 BPM Atrial Rate : 000 BPM P-R Int : 000 ms QRS Dur : 146 ms QT Int : 296 ms P-R-T Axes : 000 040 093 degrees QTc Int : 418 ms Atrial fibrillation with rapid ventricular response Right bundle branch block Inferior infarct (cited on or before 24-JUL-2021) T wave abnormality, consider lateral ischemia Abnormal ECG When compared with ECG of 24-JUL-2021 13:30, Heart rate has decreased Referred By: Jyoti Skinner Electronically Signed By:CAROLYN CASTELLANOS MD
[2021-07-24] MEDS: Metoprolol Tartrate 5 MG/5 ML VIAL IVPUSH ×3 (13:56→23:43)
[2021-07-24] MEDS: Aspirin 81 MG TAB.CHEW 324 MG PO (13:56)
--- NOTE | 2021-07-24 14:06 | ED.ARRPALP ---
HPI - Arrhythmia/Palpitations General Chief Complaint: Arrhythmia/Palpitations Stated Complaint: SOB, chest pain Time Seen by Provider: 07/24/21 13:48 Related Data Previous Rx's Medication Instructions Recorded digoxin 125 mcg (0.125 mg) tablet 0.125 mg PO DAILY #30 tab 06/07/21 folic acid 1 mg tablet 1 mg PO DAILY #30 tab 06/07/21 furosemide 20 mg tablet 20 mg PO DAILY #30 tab 06/07/21 metoprolol succinate 25 mg 25 mg PO BID #60 tab 06/07/21 tablet,extended release 24 hr multivitamin (Daily-Harry) 1 tab PO DAILY #30 tab 06/07/21 thiamine mononitrate (vit B1) 100 100 mg PO DAILY #30 tab 06/07/21 mg tablet apixaban 5 mg tablet (Eliquis) 5 mg PO BID #60 tab 06/30/21 valsartan 40 mg tablet 40 mg PO DAILY 30 Days #30 tab 07/02/21 Allergies Allergy/AdvReac Type Severity Reaction Status Date / Time bee pollen [BEE STINGS] Allergy Severe SWELLING Verified 06/29/21 14:53 NSAIDs/HCTZ/Chlorthalidone Allergy Unknown hyponatremi Uncoded 06/29/21 14:53 a [facility] Past Medical History Medical History (Updated 07/24/21 @ 16:25 by Jyoti Skinner MD) Alcohol abuse COPD (chronic obstructive pulmonary disease) HTN (hypertension) Surgical History H/O left knee surgery Family History Family History Mother Hx of CABG Social History Social History Household Members: Family Housing: House Alcohol intake: current Alcohol intake frequency: 3 or more drinks per day Patient Tobacco Use Status: Current everyday Tobacco user Tobacco use type: Cigar Advance Directives: No Advance Directives Information Provided: No service: No Current occupational status: retired Physical Exam Vital Signs: Vital Signs: Last Vital Signs Temp 97.6 F 07/24/21 15:50 Pulse 149 H 07/24/21 16:21 Resp 22 H 07/24/21 15:50 BP 107/66 07/24/21 16:21 Pulse Ox 97 07/24/21 13:43 Body Mass Index 24.8 MDM - Arrhythmia/Palpitations MDM Narrative Medical decision making narrative: Patient presented with in AFib initial heart rate of approximately 150 in atrial fibrillation history of EtOH history of COPD history of cardiomyopathy most likely secondary to ETOH use. Given low doses of Lopressor. Monitor very carefully blood pressure checked. Patient had multiple drops in blood pressure down to approximately 80/50. Consulted with Cardiology. Will start patient on a small dose of digit as patient is noncompliant. Manager Tax consulted. Bedside echo done by line maintainer. Confirm patient has low EF. Agreed with giving Lopressor. Total 3 doses was given. Blood pressure is currently 110/70. Patient will be admitted to the intensive care unit overnight. Differential Diagnosis Differential diagnosis: Likely artial fibrillation Medical Records Attestation: I reviewed the patient's medical records. Lab Data Attestation: I reviewed the patient's lab results. Result diagrams: 07/24/21 14:00 07/24/21 14:00 Labs: Lab Results 07/24/21 07/24/21 07/24/21 Range/Units 14:00 14:00 14:00 WBC 7.5 (4.8-10.8) X10*3/uL RBC 3.99 L (4.60-5.80) X10*6/uL Hgb 10.5 L (14.0-18.0) g/dl Hct 34.7 L (42.0-52.0) % MCV 87.0 (80.0-98.0) fL MCH 26.3 L (27.0-33.0) pg MCHC 30.3 L (31.0-36.0) g/dl RDW 16.9 H (11.0-16.0) % Plt Count 248 (160-400) X10*3/uL MPV 9.3 L (9.4-12.4) fL Immature Gran % (Auto) 0.5 H (0.0-0.4) % Neut % (Auto) 65.8 (45-73) % Lymph % (Auto) 24.0 (20-40) % Isabella % (Auto) 7.9 (2-11) % Eos % (Auto) 1.1 (0-4) % Baso % (Auto) 0.7 (0-2) % Lymph # (Auto) 1.8 (1.2-4.9) X10*3/uL Isabella # (Auto) 0.6 (0.1-1.2) X10*3/uL Eos # (Auto) 0.1 (0.0-0.4) X10*3/uL Baso # (Auto) 0.1 (0.0-0.2) X10*3/uL Abs Immat Gran (auto) 0.04 H (0.00-0.03) X10*3/uL Absolute Neuts (auto) 4.9 (2.0-8.3) x10*3/uL Absolute Nucleated RBC 0.000 (0.0-0.012) X10*3/uL Nucleated RBC % (auto) 0.0 (0.0-0.2) /100WBC Sodium 140 (135-145) mmol/L Potassium 4.5 (3.3-5.1) mmol/L Chloride 107 (96-108) mmol/L Carbon Dioxide 21 L (22-29) mmol/L Anion Gap 17 (12-20) BUN 19 H D (9-16) mg/dL Creatinine 0.96 (0.5-1.4) mg/dL Estim Creat Clear Calc 75.5 Estimated GFR > 60 Random Glucose 96 (60-115) mg/dL Calcium 8.4 (8.4-10.2) mg/dL Troponin I High Sens 41.8 H* D (<3.5-35.0) ng/L Ethyl Alcohol mg/dL 07/24/21 Range/Units 14:00 WBC (4.8-10.8) X10*3/uL RBC (4.60-5.80) X10*6/uL Hgb (14.0-18.0) g/dl Hct (42.0-52.0) % MCV (80.0-98.0) fL MCH (27.0-33.0) pg MCHC (31.0-36.0) g/dl RDW (11.0-16.0) % Plt Count (160-400) X10*3/uL MPV (9.4-12.4) fL Immature Gran % (Auto) (0.0-0.4) % Neut % (Auto) (45-73) % Lymph % (Auto) (20-40) % Isabella % (Auto) (2-11) % Eos % (Auto) (0-4) % Baso % (Auto) (0-2) % Lymph # (Auto) (1.2-4.9) X10*3/uL Isabella # (Auto) (0.1-1.2) X10*3/uL Eos # (Auto) (0.0-0.4) X10*3/uL Baso # (Auto) (0.0-0.2) X10*3/uL Abs Immat Gran (auto) (0.00-0.03) X10*3/uL Absolute Neuts (auto) (2.0-8.3) x10*3/uL Absolute Nucleated RBC (0.0-0.012) X10*3/uL Nucleated RBC % (auto) (0.0-0.2) /100WBC Sodium (135-145) mmol/L Potassium (3.3-5.1) mmol/L Chloride (96-108) mmol/L Carbon Dioxide (22-29) mmol/L Anion Gap (12-20) BUN (9-16) mg/dL Creatinine (0.5-1.4) mg/dL Estim Creat Clear Calc Estimated GFR Random Glucose (60-115) mg/dL Calcium (8.4-10.2) mg/dL Troponin I High Sens (<3.5-35.0) ng/L Ethyl Alcohol 159 mg/dL Critical Care Time Critical Care Time Critical Care Time: Yes Total Critical Care Time: 40 Attestation: I have personally provided 40 minutes of critical care time exclusive of time spent on separately billable procedures. Time includes review of lab data, radiology results, discussion with consultants, and monitoring for potential decompensation. Interventions were performed as documented above Discharge Plan Discharge Clinical Impression: A-fib, CHF (congestive heart failure) Prescriptions: No Action Eliquis 5 mg tablet 5 mg PO BID Qty: 60 RF: 5 multivitamin [Daily-Harry] Tablet 1 tab PO DAILY Qty: 30 RF: 0 folic acid 1 mg Tablet 1 mg PO DAILY Qty: 30 RF: 0 digoxin 125 mcg (0.125 mg) Tablet 0.125 mg PO DAILY Qty: 30 RF: 0 furosemide 20 mg Tablet 20 mg PO DAILY Qty: 30 RF: 0 metoprolol succinate 25 mg Tablet Extended Release 24 Hr 25 mg PO BID Qty: 60 RF: 0 thiamine mononitrate (vit B1) 100 mg Tablet 100 mg PO DAILY Qty: 30 RF: 0 valsartan 40 mg tablet 40 mg PO DAILY 30 Days Qty: 30 RF: 2
[2021-07-24 14:09] LABS: MANUAL DIFF FLAG NO
[2021-07-24 14:11] LABS: Basophils Absolute Auto 0.1 X10*3/uL (0.0-0.2); Basophils Percent Auto 0.7 % (0-2); Eosinophils Absolute Auto 0.1 X10*3/uL (0.0-0.4); Eosinophils Percent Auto 1.1 % (0-4); Hematocrit 34.7 % (42.0-52.0); Hemoglobin 10.5 g/dl (14.0-18.0); Imm Gran Abs Auto 0.04 X10*3/uL (0.00-0.03); Imm Gran Pct Auto 0.5 % (0.0-0.4); Lymphocytes Absolute Auto 1.8 X10*3/uL (1.2-4.9); Mean Corpuscular HGB Conc 30.3 g/dl (31.0-36.0); Mean Corpuscular Hemoglobin 26.3 pg (27.0-33.0); Mean Platelet Volume 9.3 fL (9.4-12.4); Monocytes Absolute Auto 0.6 X10*3/uL (0.1-1.2); Monocytes Percent Auto 7.9 % (2-11); Neutrophils Absolute Auto 4.9 x10*3/uL (2.0-8.3); Neutrophils Percent Auto 65.8 % (45-73); Platelet Count 248 X10*3/uL (160-400); Red Blood Count 3.99 X10*6/uL (4.60-5.80); Red Cell Distribution Width 16.9 % (11.0-16.0); White Blood Count 7.5 X10*3/uL (4.8-10.8)
--- NOTE | 2021-07-24 14:15 | PC.NURSE ---
patient heart rate 120-152 afib via tele post lopressor
[2021-07-24 14:26] LABS: Anion Gap 17 (12-20); Blood Urea Nitrogen 19 mg/dL (9-16); Calcium 8.4 mg/dL (8.4-10.2); Carbon Dioxide 21 mmol/L (22-29); Chloride 107 mmol/L (96-108); Creatinine Clr Calc Pharmacy 75.5; Estimated Glomerular Filt Rate > 60; Glucose Random 96 mg/dL (60-115); Potassium 4.5 mmol/L (3.3-5.1); Sodium 140 mmol/L (135-145)
[2021-07-24] MEDS: 0.9 % Sodium Chloride 500 ML 999 ML IV ×2 (14:30→15:24)
[2021-07-24 14:39] LABS: Troponin-I High Sensitivity 41.8 ng/L (<3.5-35.0)
[2021-07-24] MEDS: Metoprolol Tartrate 5 MG/5 ML VIAL 2.5 MG IVPUSH ×2 (15:33→16:17)
--- NOTE | 2021-07-24 15:37 | ECG_ITS ---
Test Reason : Tachycardia Blood Pressure : / mmHG Vent. Rate : 157 BPM Atrial Rate : 000 BPM P-R Int : 000 ms QRS Dur : 138 ms QT Int : 330 ms P-R-T Axes : 000 024 075 degrees QTc Int : 533 ms Atrial fibrillation with rapid ventricular response Right bundle branch block Nonspecific ST abnormality Abnormal ECG T wave inversion no longer evident in Lateral leads Heart rate has increased ST now depressed in Lateral leads Referred By: Jyoti Skinner Electronically Signed By:CAROLYN CASTELLANOS MD
--- NOTE | 2021-07-24 15:44 | PC.NURSE ---
patient c/o SOB, slight left sided chest pain/flutter lasting only a few seconds. repeat EKG completed and physician aware.
--- NOTE | 2021-07-24 15:45 | PC.NURSE ---
lopressor dose at 1356 changed from 5mg to 2.5mg IVP per Dr. Skinner r/t low blood pressure
[2021-07-24 16:13] LABS: Ethanol 159 mg/dL
[2021-07-24 16:31] LABS: Magnesium 1.6 mg/dL (1.6-2.6)
[2021-07-24] MEDS: Digoxin 0.5 MG/2 ML AMPUL 0.25 MG IVPUSH (16:34)
--- NOTE | 2021-07-24 16:42 | PM.CCHP ---
History of Present Illness Date of Service: 07/24/21 Attending physician on admission: Jyoti Tran Skinner Chief Complaint: Shortness of breath and weakness 60-year-old male chronic alcoholic with a known congestive cardiomyopathy and probable persistent atrial fibrillation presents with increased dyspnea and weakness and continues to drink last drink reportedly about 12 hours ago and also not secure about his compliance with medicine so it does not seem he is taking his metoprolol or digoxin presents with rapid atrial fibrillation a [id number] degree of tachypnea so there is some degree of respiratory distress mildly hypoxic with evidence of bilateral right greater than left pleural effusions on chest x-ray no infiltrate significant cardiomegaly and bedside echo demonstrating ejection fraction 15-20% severe dilatation with diffuse hypokinesis and dilatation of the right ventricle as well and a both atria no primary valve or pericardial disease but there is marked distention of the inferior vena cava so there is evidence here of biventricular failure in the face of rapid atrial fibrillation marginal blood pressure Review of Systems Review of Systems: Yes all other systems are reviewed and are negative [facility] Past Medical History Medical History (Updated 07/25/21 @ 16:06 by Jonny Chacko MD) Alcohol abuse COPD (chronic obstructive pulmonary disease) Hernia HTN (hypertension) Family History Family History Mother Hx of CABG Surgical History Surgical History H/O left knee surgery Social History Social History Household Members: Friend(s) Housing: Other Housing Other:: [employer]RIEN[employer] 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 Do you presently have visiting nurse or other home services: No Alcohol intake: current Alcohol intake frequency: 3 or more drinks per day Patient Tobacco Use Status: Current everyday Tobacco user Tobacco use type: Cigarette Cigarettes Per Day: 3 Years Smoked: 25 Smoked in Last 30 Days: Yes e-Cigarette/Vaping Use: Never Used Patient Interested in Nicotine Replacement: No Patient Given Instructions on How to Stop Smoking: No Second Hand Smoke Exposure: Yes Use of substances other than those prescribed or required for medical reasons: No Currently Displaying Signs/Symptoms of Drug Intoxication Withdrawal: No Any prior treatment program specific to substance use: No Have you been hit, kicked, punched, or otherwise hurt by someone within the past year? If so, by whom?: No Do you feel safe in your current relationship?: No Current Relationship Is there a partner from a previous relationship who is making you feel unsafe now?: No Are you made to feel afraid or neglected: No Advance Directives: No Advance Directives Information Provided: No Do you have thoughts of harming others: None Do you have a plan to hurt others: No Plan Recently lost weight without trying: No Eating poorly because of decreased appetite: No Nutrition Risks: No Nutritional Risk Poor oral hygiene: Yes service: No Current occupational status: retired Meds Allergies Allergy/AdvReac Type Severity Reaction Status Date / Time bee pollen [BEE STINGS] Allergy Severe SWELLING Verified 06/29/21 14:53 NSAIDs/HCTZ/Chlorthalidone Allergy Unknown hyponatremi Uncoded 06/29/21 14:53 a Active Medications: Current Medications Pantoprazole Sodium (Pantoprazole Sodium 40 Mg/10 Ml Vial) 40 mg IVPUSH DAILY@0630 [facility] Physical Exam Vital Signs: Vital Signs: Last Vital Signs Temp 97.6 F 07/24/21 15:50 Pulse 145 H 07/24/21 16:35 Resp 22 H 07/24/21 15:50 BP 109/71 07/24/21 16:35 Pulse Ox 97 07/24/21 13:43 Body Mass Index 24.8 Marginal blood pressure in the face of at least moderately increased ventricular response rate which also speaks very poor stroke work reserve and he has got significant neck vein distension as well as marked IVC distension on bedside echo with virtually no myocardial contractility both ventricles with moderately dilated atria and mild levels of secondary pulmonary hypertension Lungs just mild prolongation of expiratory time with mild diaphragmatic effort somewhat hyper hyper edil Abdomen is soft nontender no organomegaly Skin is intact but he has no palpable peripheral pulses but also no livedo and no acrocyanosis Results Labs CBC and Chem 7: 07/25/21 11:36 07/25/21 05:23 Labs: Laboratory Results - last 24 hr 07/24/21 07/24/21 07/24/21 14:00 14:00 14:00 MCV 87.0 MCH 26.3 L MCHC 30.3 L RDW 16.9 H Plt Count 248 MPV 9.3 L Immature Gran % (Auto) 0.5 H Neut % (Auto) 65.8 Lymph % (Auto) 24.0 [place] % (Auto) 7.9 Eos % (Auto) 1.1 Baso % (Auto) 0.7 Lymph # (Auto) 1.8 [place] # (Auto) 0.6 Eos # (Auto) 0.1 Baso # (Auto) 0.1 Abs Immat Gran (auto) 0.04 H Absolute Neuts (auto) 4.9 Absolute Nucleated RBC 0.000 Nucleated RBC % (auto) 0.0 Anion Gap 17 Estim Creat Clear Calc 75.5 Estimated GFR > 60 Random Glucose 96 Calcium 8.4 Magnesium 1.6 Troponin I High Sens 41.8 H* D Ethyl Alcohol 07/24/21 14:00 MCV MCH MCHC RDW Plt Count MPV Immature Gran % (Auto) Neut % (Auto) Lymph % (Auto) [place] % (Auto) Eos % (Auto) Baso % (Auto) Lymph # (Auto) [place] # (Auto) Eos # (Auto) Baso # (Auto) Abs Immat Gran (auto) Absolute Neuts (auto) Absolute Nucleated RBC Nucleated RBC % (auto) Anion Gap Estim Creat Clear Calc Estimated GFR Random Glucose Calcium Magnesium Troponin I High Sens Ethyl Alcohol 159 Imaging Radiologist's Impressions: Impressions Chest X-Ray 07/24/21 13:48 IMPRESSION: Enlarged cardiac silhouette similar to the 05/24/2021 CT scan. Small layering right effusion and bibasilar atelectasis. Assessment and Plan (1) COPD (chronic obstructive pulmonary disease): Qualifiers: COPD type: COPD with acute exacerbation Qualified Code(s): J44.1 - Chronic obstructive pulmonary disease with (acute) exacerbation Status: Acute (2) Hypomagnesemia: Status: Acute (3) Acidosis, lactic: Status: Acute (4) Pleural effusion: Status: Acute (5) Acute dyspnea: Status: Acute (6) Atrial fibrillation with rapid ventricular response: Status: Acute (7) CHF (congestive heart failure): Status: Acute (8) COPD exacerbation: Status: Acute (9) Acute congestive heart failure: Qualifiers: Heart failure type: unspecified Qualified Code(s): I50.9 - Heart failure, unspecified Status: Acute (10) Alcohol withdrawal: Status: Acute (11) Acute on chronic systolic (congestive) heart failure: Status: Acute (12) Physical deconditioning: Status: Acute (13) Hyponatremia: Status: Acute (14) Cardiomyopathy: Status: Acute (15) A-fib: Status: Acute (16) Alcohol abuse: Status: Acute (17) Biventricular failure: Status: Acute Placed in ICU with with Shepard catheter treat his high heart rate with the digoxin and if we confirm he has been noncompliant given his digoxin level then we could be more aggressive this should improve stroke volume and preserve blood pressure at but if he if he fails to sustain the withdrawal process for which she is at high risk and were watching by the CIWA scale the high output failure might require intubation Continue anticoagulation because given his very depressed ejection fraction and chronic atrial fibrillation he has a very high embolic risk
[2021-07-24 16:50] LABS: VBG Base Excess -5.9 mmol/L; VBG HCO3 20 mmol/L (22-26); VBG pCO2 44 mmHg; VBG pH 7.27 (7.32-7.43); VBG pO2 39 mmHg
[2021-07-24 16:52] LABS: Venous Blood Gas Refer to POC result
[2021-07-24 16:52] LABS: TSH reflex Free T4 3.28 uIU/mL (0.32-4.0)
[2021-07-24 16:53] LABS: INTERNATIONAL NORM RATIO 1.4 (0.9-1.1); Prothrombin Time 16.1 SEC (9.9-13.0)
[2021-07-24 16:56] LABS: Partial Thromboplastin Time 39.4 SEC (24.1-38.0)
[2021-07-24 17:07] LABS: COVID-19 Test Negative (Negative); IDNOW Serial# 9DD0AD1C
[2021-07-24] MEDS: Pantoprazole Sodium 40 MG/10 ML VIAL IVPUSH (17:20)
--- NOTE | 2021-07-24 17:22 | PC.NURSE ---
report given to TOBACCO BALER
[2021-07-24 18:07] LABS: Digoxin < 0.3 ng/mL (0.8-2.0)
--- NOTE | 2021-07-24 18:26 | PC.NURSE ---
ED ADMIT VIA STRETCHER AT 1741. CEBALLOS UPON TRANSFER. A&O X 4. DENIES PAIN. NO S&S OF ALCOHOL WITHDRAWAL AT THIS TIME. LAST KNOWN DRINK: 29907/24/21. HR 150S - AFIB ON TELE. SBP IN 80S, MAP > 65. HAVING A HARD TIME OBTAINING AN O2 READING ON FINGER AND FOREHEAD - WAS HAPPENING IN ED TOO. TAYLOR IN PLACE - MINIMAL DRAINAGE AT THIS TIME. LAST BM THIS AM. RESTING COMFORTABLY. AWAITING DINNER. WILL CONTINUE TO MONITOR.
[2021-07-24] MEDS: LORazepam 2 MG/ML VIAL 1 MG IVPUSH (19:47)
[2021-07-24] MEDS: Digoxin 0.5 MG/2 ML AMPUL IVPUSH (19:47)
[2021-07-24 20:26] LABS: Anion Gap 16 (12-20); Blood Urea Nitrogen 21 mg/dL (9-16); Calcium 8.1 mg/dL (8.4-10.2); Carbon Dioxide 21 mmol/L (22-29); Chloride 109 mmol/L (96-108); Creatinine Clr Calc Pharmacy 74.7; Estimated Glomerular Filt Rate > 60; Glucose Fasting 82 mg/dL (60-99); Sodium 141 mmol/L (135-145)
[2021-07-24 20:49] LABS: Phosphorus 5.2 mg/dL (2.7-4.5)
[2021-07-24 20:53] LABS: Ethanol 97 mg/dL
[2021-07-24 20:56] LABS: Troponin-I High Sensitivity 40.9 ng/L (<3.5-35.0)
[2021-07-24] MEDS: Magnesium Sulfate/H2O 2 GM/50 ML PIGGYBACK IV (21:06)
[2021-07-24] MEDS: Apixaban 5 MG TABLET PO (21:07)
[2021-07-24] MEDS: Digoxin 0.125 MG TABLET PO (21:13)
[2021-07-24] MEDS: PHENobarbitaL sodium 130 MG/ML VIAL 264 MG IM (21:43)
[2021-07-24] MEDS: Metoprolol Tartrate 25 MG TABLET PO (21:47)
[2021-07-24 23:44] LABS: B Type Natriuretic Peptide 704 pg/mL (<100)
[2021-07-24] MEDS: Furosemide 20 MG/2 ML VIAL IVPUSH (23:44)
[2021-07-25] VITALS (26 sets, daily range): BP systolic 102–140; BP diastolic 48–92; PULSE 72–134; RESP 12–28; TEMP 36.1–37.2; O2SAT 89–100; BMI 26.0
[2021-07-25] MEDS: PHENobarbitaL sodium 130 MG/ML VIAL 198 MG IM (00:26)
[2021-07-25] MEDS: Digoxin 0.5 MG/2 ML AMPUL 0.25 MG IVPUSH (01:10)
[2021-07-25] MEDS: dexmedeTOMIDidine HCL/NS 400 MCG/100 ML INFUS..BTL IVCONT (01:10)
--- NOTE | 2021-07-25 04:44 | PC.NURSE ---
take over for pt at 0645 shift change. Pt alert and oriented and was calm cooperative, with lower ext edema (CHF with EF 15-20%). Pt had hr 130's-160's. Dig was given d/t soft BP. Once BP was raised pt was given multiple doses of metoprolol and digoxin. Pt also admits to abusing etoh, and was found with a level of 150s intially. Pt was given multiple doses of phenobarbitol IM as well as IV ativan. As the night progressed patient became more restless and disoriented to situation. pt pulled one IV out, pulled at ekg cardiac leads and osman, and attempted to get out of bed multiple times. Pt was started on a precedex drip at 0.1 and was titrated to 0.3 with good effect. pt was able to relax and sleep, evidenced by normal HR and better o2 sat readings. Pt had poor urine output (10-20ml/hr) and was given lasix to promote urination and reduce lower ext edema with good effect. At this time pt resting quietly and comfortably.
[2021-07-25 05:36] LABS: VBG Base Excess -1.4 mmol/L; VBG HCO3 23 mmol/L (22-26); VBG O2 % Saturation < 30.0 %; VBG pCO2 38 mmHg; VBG pH 7.38 (7.32-7.43); VBG pO2 24 mmHg
[2021-07-25] MEDS: Pantoprazole Sodium 40 MG/10 ML VIAL IVPUSH (05:36)
[2021-07-25 06:14] LABS: Basophils Absolute Auto 0.1 X10*3/uL (0.0-0.2); Basophils Percent Auto 0.9 % (0-2); Eosinophils Percent Auto 0.7 % (0-4); Hematocrit 32.5 % (42.0-52.0); Hemoglobin 9.7 g/dl (14.0-18.0); Imm Gran Abs Auto 0.02 X10*3/uL (0.00-0.03); Imm Gran Pct Auto 0.3 % (0.0-0.4); Lymphocytes Absolute Auto 1.2 X10*3/uL (1.2-4.9); Lymphocytes Percent Auto 21.3 % (20-40); MANUAL DIFF FLAG NO; Mean Corpuscular HGB Conc 29.8 g/dl (31.0-36.0); Mean Corpuscular Hemoglobin 26.3 pg (27.0-33.0); Mean Corpuscular Volume 88.1 fL (80.0-98.0); Mean Platelet Volume 9.5 fL (9.4-12.4); Monocytes Absolute Auto 0.7 X10*3/uL (0.1-1.2); Monocytes Percent Auto 12.1 % (2-11); Neutrophils Absolute Auto 3.7 x10*3/uL (2.0-8.3); Neutrophils Percent Auto 64.7 % (45-73); Platelet Count 182 X10*3/uL (160-400); Red Blood Count 3.69 X10*6/uL (4.60-5.80); Red Cell Distribution Width 16.7 % (11.0-16.0); White Blood Count 5.8 X10*3/uL (4.8-10.8)
[2021-07-25 06:15] LABS: ABG Base Excess -3.1 mmol/L; ABG HCO3 23 mmol/L (22-26); ABG O2 % Saturation < 30.0 %; ABG pCO2 49 mmHg (32-45); ABG pCO2 TC 48 mmHg (32-45); ABG pH 7.28 (7.35-7.45); ABG pH TC 7.29 (7.35-7.45); ABG pO2 21 mmHg (83-108); ABG pO2 TC 21 (83-108)
[2021-07-25 06:19] LABS: Venous Blood Gas Refer to POC result
[2021-07-25 06:20] LABS: ABG Refer to POC result
[2021-07-25 06:51] LABS: Alanine Aminotransferase 9 U/L (0-40); Albumin Level 3.3 g/dL (3.5-5.0); Alkaline Phosphatase 82 U/L (39-117); Anion Gap 13 (12-20); Aspartate Amino Transferase 33 U/L (5-37); Bilirubin Total 1.5 mg/dL (0.0-1.0); Blood Urea Nitrogen 21 mg/dL (9-16); Calcium 8.3 mg/dL (8.4-10.2); Carbon Dioxide 23 mmol/L (22-29); Chloride 109 mmol/L (96-108); Creatinine Clr Calc Pharmacy 73.2; Estimated Glomerular Filt Rate > 60; Glucose Random 73 mg/dL (60-115); Sodium 140 mmol/L (135-145); Total Protein 5.6 g/dL (6.5-8.0)
[2021-07-25] MEDS: Morphine Sulfate 2 MG/ML CARTRIDGE IVPUSH ×2 (07:32→09:28)
[2021-07-25 08:27] LABS: VBG Base Excess -2.6 mmol/L; VBG HCO3 23 mmol/L (22-26); VBG pCO2 46 mmHg; VBG pH 7.31 (7.32-7.43); VBG pO2 43 mmHg
[2021-07-25 08:47] LABS: Lactic Acid 0.6 mmol/L (0.5-2.0)
[2021-07-25 11:17] LABS: Venous Blood Gas Refer to POC result
--- NOTE | 2021-07-25 11:17 | MHC.CM.PN ---
pt is in the icu. he is disoriented and on precedex iv gtt for sedation. dc plan deferred to a future time. pt could benefit from a care team consult when medically stable. cm to cont. to follow.
[2021-07-25] MEDS: Furosemide 200 MG in 0.9 % Sodium Chloride 80 ML IVCONT (11:35)
[2021-07-25 11:47] LABS: Hematocrit 31.4 % (42.0-52.0); Hemoglobin 9.6 g/dl (14.0-18.0); Mean Corpuscular HGB Conc 30.6 g/dl (31.0-36.0); Mean Corpuscular Hemoglobin 26.8 pg (27.0-33.0); Mean Corpuscular Volume 87.7 fL (80.0-98.0); Mean Platelet Volume 8.9 fL (9.4-12.4); Platelet Count 169 X10*3/uL (160-400); Red Blood Count 3.58 X10*6/uL (4.60-5.80); Red Cell Distribution Width 16.6 % (11.0-16.0); White Blood Count 6.3 X10*3/uL (4.8-10.8)
[2021-07-25] MEDS: Magnesium Sulfate/D5W 1 GM/100 ML PIGGYBACK IV (11:54)
[2021-07-25 11:57] LABS: INTERNATIONAL NORM RATIO 1.6 (0.9-1.1); Prothrombin Time 18.2 SEC (9.9-13.0)
[2021-07-25] MEDS: Enoxaparin Sodium 80 MG/0.8 ML SYRINGE 75 MG SUBCUT (11:57)
[2021-07-25 12:00] LABS: Partial Thromboplastin Time 40.6 SEC (24.1-38.0)
[2021-07-25 15:53] LABS: VBG Base Excess -0.3 mmol/L; VBG HCO3 24 mmol/L (22-26); VBG pCO2 39 mmHg; VBG pH 7.39 (7.32-7.43); VBG pO2 40 mmHg
--- NOTE | 2021-07-25 16:09 | P.PNCC_ITS ---
Subjective Subjective Date of Service: 07/25/21 Interval History: 60-year-old chronic alcoholic came in with a significant alcohol level and began to did develop some agitation and had a paradoxical effect from phenobarbital so was placed on dexmedetomidine for with which she is doing fairly well he is oriented to person and place right now and his heart rate is well controlled urine is dark and he is oliguric at this point and he does have a mild degree of metabolic acidosis but non anion gap without significant lactate elevation but he is hyperchloremic and this might reflect a degree of renal tubular acidosis possibly exacerbated by relatively low cardiac output and he is very tachypneic with marked diaphragmatic effort and wheezing so I shut off all IV fluids and decided to place a [place]-Fawn catheter which went without complication Placed via the right internal jugular vein we documented its course through the right atrium to the right ventricle to the pulmonary artery with pulmonary artery pressures of about 60/30 wedge pressure about 30 mean right atrial pressure 20 clearly consistent with biventricular failure but predominant left heart failure and by Magi I calculated cardiac output to be 5.4 liters/minute with a controlled heart rate of approximately 80-85 and hemoglobin of 9.7 and calculated peripheral vascular resistance was about a 1000 which was basically normal so he is not in in overly done vaso dilated state just yet and currently sleeping on the dexmedetomidine with excellent oxygen saturation and being that the predominant issue right now was not in adequate cardiac output but more elevated filling pressure I started a 5 milligram/hour Lasix drip and he is diuresing beautifully and his pulmonary artery diastolic pressure is down to 25 and his pulmonary artery systolic pressure is down to 50-54 and we now have complete resolution of the acidosis at this point so he looks metabolically comfortable as we continue to watch him for signs of withdrawal because I still fear that the best process for him would be intubation at least alleviate him of the work of breathing so he can sustain his high output requirements Critical Care Time (minutes): 75 Physical Exam Vital Signs: Vital Signs: Last Vital Signs Temp 97.2 F 07/25/21 14:00 Pulse 88 07/25/21 15:00 Resp 17 07/25/21 15:00 BP 126/73 07/25/21 15:00 Pulse Ox 100 07/25/21 15:00 Body Mass Index 26.0 Reduced bilateral carotid upstrokes going along with poor stroke work reserve and marked neck vein distension and just trace to 1+ bilateral pretibial edema but intact skin Lungs with diminished wheezing Abdomen soft no organomegaly Objective Data Labs CBC & Chem 7: 07/25/21 11:36 07/25/21 05:23 Labs: Laboratory Results - last 24 hr 07/24/21 07/24/21 07/24/21 16:39 19:48 19:48 WBC RBC Hgb Hct MCV MCH MCHC RDW Plt Count MPV Immature Gran % (Auto) Neut % (Auto) Lymph % (Auto) [place] % (Auto) Eos % (Auto) Baso % (Auto) Lymph # (Auto) [place] # (Auto) Eos # (Auto) Baso # (Auto) Abs Immat Gran (auto) Absolute Neuts (auto) Absolute Nucleated RBC Nucleated RBC % (auto) PT INR APTT O2 Saturation ABG pH at Pt Temp ABG pH (Temp Correct) ABG pCO2 at Pt Temp ABG pCO2 (Temp Corrct ABG pO2 at Pt Temp ABG pO2 (Temp Correct ABG HCO3 ABG Base Excess (Actual) VBG pH VBG pCO2 VBG pO2 VBG HCO3 VBG O2 Saturation VBG Base Excess Sodium 141 Potassium 5.0 Chloride 109 H Carbon Dioxide 21 L Anion Gap 16 BUN 21 H Creatinine 0.97 Estim Creat Clear Calc 74.7 Estimated GFR > 60 Random Glucose Fasting Glucose 82 Lactic Acid Calcium 8.1 L Phosphorus 5.2 H Total Bilirubin AST ALT Alkaline Phosphatase Troponin I High Sens 40.9 H* B-Natriuretic Peptide 704 H Total Protein Albumin Digoxin < 0.3 L Ethyl Alcohol 07/24/21 07/25/21 07/25/21 19:48 05:23 05:30 WBC RBC Hgb Hct MCV MCH MCHC RDW Plt Count MPV Immature Gran % (Auto) Neut % (Auto) Lymph % (Auto) [place] % (Auto) Eos % (Auto) Baso % (Auto) Lymph # (Auto) [place] # (Auto) Eos # (Auto) Baso # (Auto) Abs Immat Gran (auto) Absolute Neuts (auto) Absolute Nucleated RBC Nucleated RBC % (auto) PT INR APTT O2 Saturation ABG pH at Pt Temp ABG pH (Temp Correct) ABG pCO2 at Pt Temp ABG pCO2 (Temp Corrct ABG pO2 at Pt Temp ABG pO2 (Temp Correct ABG HCO3 ABG Base Excess (Actual) VBG pH 7.38 VBG pCO2 38 VBG pO2 24 VBG HCO3 23 VBG O2 Saturation < 30.0 VBG Base Excess -1.4 Sodium 140 Potassium 5.0 Chloride 109 H Carbon Dioxide 23 Anion Gap 13 BUN 21 H Creatinine 0.99 Estim Creat Clear Calc 73.2 Estimated GFR > 60 Random Glucose 73 Fasting Glucose Lactic Acid Calcium 8.3 L Phosphorus Total Bilirubin 1.5 H AST 33 ALT 9 Alkaline Phosphatase 82 Troponin I High Sens B-Natriuretic Peptide Total Protein 5.6 L Albumin 3.3 L Digoxin Ethyl Alcohol 97 07/25/21 07/25/21 07/25/21 06:00 06:07 08:21 WBC 5.8 RBC 3.69 L Hgb 9.7 L Hct 32.5 L MCV 88.1 MCH 26.3 L MCHC 29.8 L RDW 16.7 H Plt Count 182 D MPV 9.5 Immature Gran % (Auto) 0.3 Neut % (Auto) 64.7 Lymph % (Auto) 21.3 [place] % (Auto) 12.1 H Eos % (Auto) 0.7 Baso % (Auto) 0.9 Lymph # (Auto) 1.2 [place] # (Auto) 0.7 Eos # (Auto) 0.0 Baso # (Auto) 0.1 Abs Immat Gran (auto) 0.02 Absolute Neuts (auto) 3.7 Absolute Nucleated RBC 0.000 Nucleated RBC % (auto) 0.0 PT INR APTT O2 Saturation < 30.0 ABG pH at Pt Temp 7.28 L ABG pH (Temp Correct) 7.29 L ABG pCO2 at Pt Temp 49 H ABG pCO2 (Temp Corrct 48 H ABG pO2 at Pt Temp 21 L* ABG pO2 (Temp Correct 21 L* ABG HCO3 23 ABG Base Excess (Actual) -3.1 VBG pH 7.31 L VBG pCO2 46 VBG pO2 43 VBG HCO3 23 VBG O2 Saturation 62.0 VBG Base Excess -2.6 Sodium Potassium Chloride Carbon Dioxide Anion Gap BUN Creatinine Estim Creat Clear Calc Estimated GFR Random Glucose Fasting Glucose Lactic Acid Calcium Phosphorus Total Bilirubin AST ALT Alkaline Phosphatase Troponin I High Sens B-Natriuretic Peptide Total Protein Albumin Digoxin Ethyl Alcohol 07/25/21 07/25/21 07/25/21 08:22 11:36 11:36 WBC 6.3 RBC 3.58 L Hgb 9.6 L Hct 31.4 L MCV 87.7 MCH 26.8 L MCHC 30.6 L RDW 16.6 H Plt Count 169 MPV 8.9 L Immature Gran % (Auto) Neut % (Auto) Lymph % (Auto) [place] % (Auto) Eos % (Auto) Baso % (Auto) Lymph # (Auto) [place] # (Auto) Eos # (Auto) Baso # (Auto) Abs Immat Gran (auto) Absolute Neuts (auto) Absolute Nucleated RBC 0.000 Nucleated RBC % (auto) 0.0 PT 18.2 H INR 1.6 H APTT 40.6 H O2 Saturation ABG pH at Pt Temp ABG pH (Temp Correct) ABG pCO2 at Pt Temp ABG pCO2 (Temp Corrct ABG pO2 at Pt Temp ABG pO2 (Temp Correct ABG HCO3 ABG Base Excess (Actual) VBG pH VBG pCO2 VBG pO2 VBG HCO3 VBG O2 Saturation VBG Base Excess Sodium Potassium Chloride Carbon Dioxide Anion Gap BUN Creatinine Estim Creat Clear Calc Estimated GFR Random Glucose Fasting Glucose Lactic Acid 0.6 Calcium Phosphorus Total Bilirubin AST ALT Alkaline Phosphatase Troponin I High Sens B-Natriuretic Peptide Total Protein Albumin Digoxin Ethyl Alcohol 07/25/21 15:47 WBC RBC Hgb Hct MCV MCH MCHC RDW Plt Count MPV Immature Gran % (Auto) Neut % (Auto) Lymph % (Auto) [place] % (Auto) Eos % (Auto) Baso % (Auto) Lymph # (Auto) [place] # (Auto) Eos # (Auto) Baso # (Auto) Abs Immat Gran (auto) Absolute Neuts (auto) Absolute Nucleated RBC Nucleated RBC % (auto) PT INR APTT O2 Saturation ABG pH at Pt Temp ABG pH (Temp Correct) ABG pCO2 at Pt Temp ABG pCO2 (Temp Corrct ABG pO2 at Pt Temp ABG pO2 (Temp Correct ABG HCO3 ABG Base Excess (Actual) VBG pH 7.39 VBG pCO2 39 VBG pO2 40 VBG HCO3 24 VBG O2 Saturation 65.0 VBG Base Excess -0.3 Sodium Potassium Chloride Carbon Dioxide Anion Gap BUN Creatinine Estim Creat Clear Calc Estimated GFR Random Glucose Fasting Glucose Lactic Acid Calcium Phosphorus Total Bilirubin AST ALT Alkaline Phosphatase Troponin I High Sens B-Natriuretic Peptide Total Protein Albumin Digoxin Ethyl Alcohol Quality Stroke Does the patient have a stroke diagnosis?: No VTE Prior VTE?: No VTE Risk Level:: Medical - moderate - high VTE Device Contraindication: N/A - Device Ordered VTE Drug Contraindication: N/A - Med Ordered Progress Note: A&P Assessment and plan (1) Anemia: Status: Acute (2) Biventricular failure: Status: Acute (3) COPD (chronic obstructive pulmonary disease): Status: Acute (4) Hypomagnesemia: Status: Acute (5) Acidosis, lactic: Status: Acute (6) Pleural effusion: Status: Acute (7) Acute dyspnea: Status: Acute (8) Atrial fibrillation with rapid ventricular response: Status: Acute (9) CHF (congestive heart failure): Status: Acute (10) COPD exacerbation: Status: Acute (11) Acute congestive heart failure: Status: Acute (12) Alcohol withdrawal: Status: Acute (13) Acute on chronic systolic (congestive) heart failure: Status: Acute (14) Physical deconditioning: Status: Acute (15) Hyponatremia: Status: Acute (16) Apical mural thrombus: Status: Acute (17) Cardiomyopathy: Status: Acute (18) A-fib: Status: Acute (19) Alcohol abuse: Status: Acute Assessment and Plan: Will follow his renal function and electrolytes and we could simply follow his central venous O2 saturation is that would be best indicator at least of the stability of his cardiac output med and because if that were to drop I would question that we over diuresed and I am looking to bring down his pulmonary artery diastolic at least in the range of 20-22 Follow CIWA scale
[2021-07-25 16:13] LABS: Anion Gap 12 (12-20); Blood Urea Nitrogen 19 mg/dL (9-16); Calcium 7.7 mg/dL (8.4-10.2); Carbon Dioxide 25 mmol/L (22-29); Chloride 107 mmol/L (96-108); Creatinine Clr Calc Pharmacy 86.3; Estimated Glomerular Filt Rate > 60; Glucose Random 82 mg/dL (60-115); Potassium 4.3 mmol/L (3.3-5.1); Sodium 140 mmol/L (135-145)
--- NOTE | 2021-07-25 16:16 | P.PCNCC_ITS ---
Procedures Date of Service Date of Service: 07/25/21 Procedure Note Procedure Note: After sterile preparation and draping and utilizing ultrasound guidance I 1st gained easy entry to the right internal jugular vein without complication confirmed its position inserted a J tipped guidewire to the right atrium and then an 8.5 [place] introducer and then through that we inserted a [place]-Fawn catheter at the bedside utilizing a guidance from the wave morphology on the monitor and as a went through the right atrium we noted a mean right atrial pressure of 20 and then across the tricuspid valve to the right ventricle right ventricular pressure was approximately 56/20 and then across the pulmonic valve to the pulmonary artery with the pressure was about 58 over 30-32 and then wedge pressure also 30-32 and then really taking the balloon down we had a good arterial curve and we confirmed on chest x-ray placement in the right pulmonary artery without complication and the instruction will be to follow only pulmonary artery diastolic pressure we are not to wedge the catheter Indication was predominant left heart failure but biventricular failure severe class 4 dysfunction
--- NOTE | 2021-07-25 18:10 | PC.NURSE ---
Around 0645 this morning patient noted to have an increased RR 28 and effort with noticeable shallow respirations and belly breathing. Requiring 5 L O2 to maintain O2 sat in the 90s. ABGs obtained: 7.28/49/21/23. Patient moderately sedated on Precedex drip, drip decreased per MD (see MAR). Arousable to name. Additional vital signs stable. LS clear. Around 0800 sw[place]-natalee catheter placed by . 62 cm at the hub. Patient tolerated well with total of 4mg IV morphine given with good effect. VS remained stable pre/intra/post procedure. Obtained Chest Xray for placement. At time of insertion PA: 21 RV: 58/20 PA 58/30 PAD 30 MRA 30 PAWP 32 Obtained repeat lactic 0.6 and VB.31/46/43/23. Lasix drip started. Around 1800 total urinary output for [id number]: 2,800 ml
[2021-07-25 19:06] LABS: Venous Blood Gas Refer to POC result
[2021-07-25] MEDS: Digoxin 0.125 MG TABLET PO (21:41)
[2021-07-25] MEDS: Apixaban 5 MG TABLET PO (21:41)
[2021-07-26] VITALS (28 sets, daily range): BP systolic 110–149; BP diastolic 62–92; PULSE 86–138; RESP 15–26; TEMP 36.6–37.2; O2SAT 92–100; BMI 25.4
[2021-07-26] MEDS: dexmedeTOMIDidine HCL/NS 400 MCG/100 ML INFUS..BTL IVCONT (00:02)
--- NOTE | 2021-07-26 03:38 | PC.NURSE ---
Assumed care of pt at 1900. Pt A&O X3. Denies complaints. No resp difficulty. Lasix drip infusing as ordered but stopped at 2029 for pulmonary diastolic pressure of 16. Urine output had been 300-400 ml/hr while on lasix drip but since 2029 when it was paused output has been decreasing. Monitor shows afib, rate controlled in the 80's-90's. [place] natalee catheter intact RIJ, 62 cm at the hub. Last PCWP was 8. Pas/pad 33/14. Pt resting quietly at this time. He is easily arousable.
[2021-07-26] MEDS: Pantoprazole Sodium 40 MG/10 ML VIAL IVPUSH (05:08)
[2021-07-26 05:51] LABS: MANUAL DIFF FLAG NO
[2021-07-26 05:54] LABS: Basophils Percent Auto 0.5 % (0-2); Eosinophils Absolute Auto 0.1 X10*3/uL (0.0-0.4); Eosinophils Percent Auto 1.9 % (0-4); Hematocrit 31.4 % (42.0-52.0); Hemoglobin 9.8 g/dl (14.0-18.0); Imm Gran Abs Auto 0.03 X10*3/uL (0.00-0.03); Imm Gran Pct Auto 0.5 % (0.0-0.4); Lymphocytes Percent Auto 16.2 % (20-40); Mean Corpuscular HGB Conc 31.2 g/dl (31.0-36.0); Mean Corpuscular Hemoglobin 26.6 pg (27.0-33.0); Mean Corpuscular Volume 85.1 fL (80.0-98.0); Mean Platelet Volume 9.3 fL (9.4-12.4); Monocytes Absolute Auto 0.7 X10*3/uL (0.1-1.2); Monocytes Percent Auto 11.6 % (2-11); Neutrophils Absolute Auto 4.1 x10*3/uL (2.0-8.3); Neutrophils Percent Auto 69.3 % (45-73); Platelet Count 181 X10*3/uL (160-400); Red Blood Count 3.69 X10*6/uL (4.60-5.80); Red Cell Distribution Width 16.3 % (11.0-16.0); White Blood Count 5.9 X10*3/uL (4.8-10.8)
[2021-07-26 06:13] LABS: Alanine Aminotransferase 8 U/L (0-40); Albumin Level 2.8 g/dL (3.5-5.0); Alkaline Phosphatase 73 U/L (39-117); Anion Gap 12 (12-20); Aspartate Amino Transferase 25 U/L (5-37); Bilirubin Total 1.9 mg/dL (0.0-1.0); Blood Urea Nitrogen 14 mg/dL (9-16); Calcium 7.6 mg/dL (8.4-10.2); Carbon Dioxide 27 mmol/L (22-29); Chloride 101 mmol/L (96-108); Creatinine Clr Calc Pharmacy 94.1; Estimated Glomerular Filt Rate > 60; Glucose Random 137 mg/dL (60-115); Potassium 3.6 mmol/L (3.3-5.1); Sodium 136 mmol/L (135-145); Total Protein 4.8 g/dL (6.5-8.0)
[2021-07-26] MEDS: Apixaban 5 MG TABLET PO ×2 (08:35→23:48)
[2021-07-26] MEDS: Digoxin 0.125 MG TABLET PO (08:35)
[2021-07-26] MEDS: Folic Acid 1 MG in 0.9 % Sodium Chloride 50 ML 100.4 MG IV (08:36)
[2021-07-26] MEDS: Thiamine HCL 100 MG in 0.9 % Sodium Chloride 100 ML 202 MG IV (08:37)
[2021-07-26] MEDS: Potassium Chloride Packet 20 MEQ PACKET 40 MEQ PO ×3 (10:26→21:38)
[2021-07-26 11:35] LABS: INTERNATIONAL NORM RATIO 1.7 (0.9-1.1); Prothrombin Time 20.1 SEC (9.9-13.0)
--- NOTE | 2021-07-26 15:37 | MHC.CM.PN ---
Met with pt to discuss d/c planning: pt states he had been renting a room from his sister but has been asked to leave as her significant other does not want him there. Pt is independent with all care needs: no services or adaptive equipment being used. 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 Pt states he has a friend he may be able to stay with short term but would like to transition to a alf home or other communal living environment. Review of EMR notes pt has significant medical / cardiac issues and will likely need close follow up and care following d/c. Discussed STR options to which pt was agreeable. I don't know how to take care of medical needs, that would be good Pt received the Rosalind 2 part vax ending on 06/09. He states his HCP is his nephew John Courtney. CM to investigate HCP where abouts. PCP is Antonino Ramsey. Broad referrals made - unsure of all [facility] contracted SNF's. Will await PT eval, medical clearance and SNF acceptance.
--- NOTE | 2021-07-26 16:51 | PM.CCPN ---
Subjective Subjective Date of Service: 07/26/21 Interval History: Mr. Gordon was admitted to ICU on Jul 24 with uncontrolled atrial fibrillation, biventricular congestive heart failure, and respiratory distress. The patient is a 60-year-old male with past medical history of alcoholism, atrial fibrillation, and congestive cardiomyopathy.? The patient was admitted to [place] for two weeks this past May with acute on chronic systolic heart failure complicated by atrial fibrillation with RVR, alcohol withdrawal, and COPD exacerbation.? For his atrial fibrillation he was started on digoxin and Toprol.? See echo results below.? He was diuresed.? He was treated with steroids and bronchodilators, and with the phenobarbital protocol for alcohol withdrawal.? Ultimately the patient was discharged home. Echocardiogram on 05/25/2021 showed severely decreased LV systolic function with ejection fraction 17%, and a possible apical thrombus.? There were regional wall motion abnormalities, with an akinetic basal inferior segment.? The right ventricle was mildly increased in size with mildly decreased right ventricular systolic function.? The atria were moderately to severely dilated.? There was [id number] MR, and mild TR, with calculated RVSP of 35 mm.? The IVC was dilated with less than 50% inspiratory collapse.? [place] other [place] [facility] [place] and showed normal LV and RV size and fxn. Medications on discharge included Eliquis, digoxin 0.125 mg daily, Lasix 20 mg daily, and metoprolol extended release 25 mg b.i.d.. ?He had previously been on amlodipine and lisinopril, and those 2 medications were discontinued. The patient is reportedly homeless.? He is a current everyday smoker. HISTORY OF PRESENT ILLNESS: ?The patient presented ambulatory to the ED on the afternoon of July 24 complaining of shortness of breath and chest pain.? Heart rate was 150 in atrial fibrillation.? There was significant JVD. ?Labs including troponin were unremarkable, except for the BNP which was 704 (last was 1975 in May).? Bedside echo showed diffuse LV hypokinesis with EF of 15%, with RV dilatation, and marked IVC distention with no inspiratory collapse.? He was treated with digoxin and low-dose metoprolol.? He began to develop some agitation, thought to be alcohol withdrawal.? He was given phenobarbital but have paradoxical effect, therefore he was started on dexmedetomidine. A Farwell-Fawn catheter was placed showing pulmonary pressures of 60/30, wedge pressures of 30, and right atrial pressures of 20. Calculated cardiac output was 5.4 L/minute.? He was therefore started on a Lasix infusion, resulting in excellent urine output and a drop in his filling pressures.? The Lasix was turned off last night. This morning, the Precedex was turned off and all day the patient has been very calm, fully oriented and appropriate, even very pleasant to talk with.? He is breathing easy with sat of 100% on room air.? At midday, heart rate was about 120, blood pressure about 130/80.? PAP was 60/29, w PAWP 29.? We restarted the Lasix infusion, with urine output reaching 500 cc/hour.? This evening after further diuresis, PAP was down to 40/20, PAWP was 12, CVP was 8.? He is afebrile.? No JVD with the head of the bed at 30 degrees.? Chest is absolutely clear to auscultation, with normal expiratory phase.? Heart rate and rhythm are irregular, with normal-sounding S1 and S2.? I heard no murmur or gallops. ?Abdomen is benign.? The patient has no peripheral edema. LABORATORY DATA:? As below. Repeat bedside all ECHOCARDIOGRAM by me: 1. Top-normal LV wall thickness. ? 2. Normal or top-normal LV dimensions.? I saw no obvious apical thrombus.? 3. Severe global LV hypokinesis with EF about 10% on the parasternal long-axis view, and maybe 15% on the apical four-chamber view.? No obvious regional wall motion abnormalities noted. 4. RV is dilated with diminished function.? RV:LV cavity ratio approximately 1:1. 5. Atria not assessed 6. Aortic valve is trileaflet with 1+ AI by color-flow Doppler; no . 7. Mitral valve normal in morphology with 1-2 +MR by color-flow. 8. Tricuspid valve normal morphology with trace TR.? I was unable to obtain a good continuous wave Doppler measurement 9. The inferior vena cava was small, measuring 1.0cm, with almost complete inspiratory collapse. IMPRESSION: 1. Chronic alcoholism.? No evidence of withdrawal at this time.? Continue to monitor.? 2. Severe biventricular cardiomyopathy.? Likely secondary to above.? Patient has been adequately diuresed.? There?s no more jugular venous distention, there?s no more edema, and his IVC is dramatically smaller with full inspiratory collapse. ?We pulled the Farwell-Fawn catheter (no problems).? Check BNP and renal indices in the morning. 3. Atrial fibrillation.? Much better controlled after we gave him another 0.25 mg digoxin.? Check digoxin level in the morning.? Continue Xarelto. Critical care time (including full chart review and multiple visits to the bedside):? 90 min. Critical Care Time (minutes): 90 Physical Exam Vital Signs: Vital Signs: Last Vital Signs Temp 97.8 F 07/26/21 12:00 Pulse 109 H 07/26/21 16:00 Resp 19 07/26/21 16:00 BP 117/81 07/26/21 16:00 Pulse Ox 97 07/26/21 16:00 Body Mass Index 25.4 Objective Data Labs CBC & Chem 7: 07/26/21 05:05 07/26/21 05:05 Labs: Laboratory Results - last 24 hr 07/26/21 07/26/21 07/26/21 05:05 05:05 11:02 WBC 5.9 RBC 3.69 L Hgb 9.8 L Hct 31.4 L MCV 85.1 MCH 26.6 L MCHC 31.2 RDW 16.3 H Plt Count 181 MPV 9.3 L Immature Gran % (Auto) 0.5 H Neut % (Auto) 69.3 Lymph % (Auto) 16.2 L Cedar % (Auto) 11.6 H Eos % (Auto) 1.9 Baso % (Auto) 0.5 Lymph # (Auto) 1.0 L Cedar # (Auto) 0.7 Eos # (Auto) 0.1 Baso # (Auto) 0.0 Abs Immat Gran (auto) 0.03 Absolute Neuts (auto) 4.1 Absolute Nucleated RBC 0.000 Nucleated RBC % (auto) 0.0 PT 20.1 H INR 1.7 H Sodium 136 Potassium 3.6 Chloride 101 Carbon Dioxide 27 Anion Gap 12 BUN 14 Creatinine 0.77 Estim Creat Clear Calc 94.1 Estimated GFR > 60 Random Glucose 137 H D Calcium 7.6 L Total Bilirubin 1.9 H AST 25 ALT 8 Alkaline Phosphatase 73 Total Protein 4.8 L Albumin 2.8 L Quality Stroke Does the patient have a stroke diagnosis?: No VTE Prior VTE?: No VTE Risk Level:: Medical - moderate - high VTE Device Contraindication: N/A - Device Ordered VTE Drug Contraindication: N/A - Med Ordered Critical Care Time Critical Care Time (minutes): 90
[2021-07-26] MEDS: Digoxin 0.5 MG/2 ML AMPUL 0.25 MG IVPUSH ×2 (17:05→22:20)
[2021-07-26] MEDS: Furosemide 200 MG in 0.9 % Sodium Chloride 80 ML IVCONT (17:06)
[2021-07-26] MEDS: Gabapentin 600 MG TABLET PO (21:16)
[2021-07-26] MEDS: Morphine Sulfate 4 MG/ML CARTRIDGE IVPUSH (21:35)
--- NOTE | 2021-07-26 22:01 | PC.NURSE ---
Urine output increasing 300-500 ml/hr. Lasix drip discontinued per . Baxter-natalee removed by Mesha OTERO. Pt tolerated well, occlusive dressing applied. 4 mg morphine and 40 meq K given for leg cramping/spasm.
[2021-07-27] VITALS (23 sets, daily range): BP systolic 122–153; BP diastolic 73–98; PULSE 61–125; RESP 14–36; TEMP 36.4–37.5; O2SAT 86–98; BMI 25.2
[2021-07-27] MEDS: HYDROmorphone HCl 0.5 MG/0.5 ML SYRINGE IVPUSH ×2 (03:32→23:49)
--- NOTE | 2021-07-27 04:35 | PC.NURSE ---
CARE ASSUMED 23:15..ALERT..ORIENTED X3...CALM CO-OPERATIVE...O2 3 L/M VIA CANNULA...SAO2 94-96% WHILE AWAKE...SAO2 88-89% ASLEEP OFF O2...TAYLOR 75-85 CC/HR OFF LASIX DRIP...MEDICATED WITH PRN DILAUDID FOR C/O LEFT KNEE PAIN AND GENERALIZED ACHES PER PATIENT...RESTFUL AFTERWARDS..NAPPING..NO DISTRESS
[2021-07-27] MEDS: Omeprazole 40 MG CAPSULE.DR PO (05:31)
[2021-07-27 06:25] LABS: B Type Natriuretic Peptide 2762 pg/mL (<100)
[2021-07-27 06:36] LABS: Alanine Aminotransferase 8 U/L (0-40); Albumin Level 3.1 g/dL (3.5-5.0); Alkaline Phosphatase 83 U/L (39-117); Anion Gap 9 (12-20); Aspartate Amino Transferase 23 U/L (5-37); Bilirubin Total 1.1 mg/dL (0.0-1.0); Blood Urea Nitrogen 9 mg/dL (9-16); Carbon Dioxide 32 mmol/L (22-29); Chloride 98 mmol/L (96-108); Creatinine Clr Calc Pharmacy 105.1; Estimated Glomerular Filt Rate > 60; Glucose Random 107 mg/dL (60-115); Magnesium 1.3 mg/dL (1.6-2.6); Phosphorus 4.1 mg/dL (2.7-4.5); Potassium 4.1 mmol/L (3.3-5.1); Sodium 135 mmol/L (135-145); Total Protein 5.2 g/dL (6.5-8.0)
[2021-07-27 06:48] LABS: Digoxin 1.7 ng/mL (0.8-2.0)
--- NOTE | 2021-07-27 07:12 | P.CDIC_ITS ---
CDI Concurrent Query Documentation Clarification: PHYSICIAN'S DOCUMENTATION REQUEST Date of Query: 07/27/21 07 Patient Name: Brad Gordon Admit Date: 07/24/21 Dear Doctor, A review of the medical record indicates additional documentation may be needed. Please review below and update the documentation accordingly. Clinical Indicators: Risk Factors/Clinical Indicators/Treatments Per H&P: Atrial Fibrillation with RVR Per MD note 07/26/21: Atrial Fibrillation, uncontrolled If possible, please provide further specificity regarding atrial fibrillation, such as: * Paroxysmal atrial fibrillation: terminates spontaneously or with intervention within 7 days of onset. * Persistent atrial fibrillation: episodes of continuous AF that last more than 7 days and do not self-terminate. * Long lasting persistent atrial fibrillation: episodes of continuous AF that last more than 12 months, * Chronic or Permanent atrial fibrillation: when a decision has been made to accept the presence of AF and there is no further attempt to restore or maintain sinus rhythm. * Other (please specify) * Unable to determine Use of terms such as suspected, likely, concern for, or probable (associated with a specific diagnosis that is being evaluated, monitored, or treated as if it exists) are acceptable and can be coded in the inpatient setting, when documented at the time of discharge. Thank you, Vy Vidal RN Extension: [phone] Please use your independent medical judgment in providing your response. THIS QUERY IS PART OF THE PERMANENT MEDICAL RECORD Provider Response: Other Other Diagnosis: Atrial fibrillation with RVR.
[2021-07-27] MEDS: Digoxin 0.125 MG TABLET PO (07:55)
[2021-07-27] MEDS: Thiamine HCL 100 MG TABLET PO (07:55)
[2021-07-27] MEDS: Magnesium Sulfate/D5W 1 GM/100 ML PIGGYBACK IV (07:55)
[2021-07-27] MEDS: Folic Acid 1 MG TABLET PO (07:56)
[2021-07-27] MEDS: Apixaban 5 MG TABLET PO ×2 (07:56→20:20)
[2021-07-27] MEDS: Potassium Chloride Packet 20 MEQ PACKET 40 MEQ PO (11:09)
--- NOTE | 2021-07-27 11:10 | P.PNCC_ITS ---
Subjective Subjective Date of Service: 07/27/21 Interval History: Mr. Gordon was admitted to ICU on Jul 24 with uncontrolled atrial fibrillation, biventricular congestive heart failure, and respiratory distress. The patient is a 60-year-old male with past medical history of alcoholism, atrial fibrillation, and congestive cardiomyopathy.? The patient was admitted to [place] for two weeks this past May with acute on chronic systolic heart failure complicated by atrial fibrillation with RVR, alcohol withdrawal, and COPD exacerbation.? For his atrial fibrillation he was started on digoxin and Toprol.? See echo results below.? He was diuresed.? He was treated with steroids and bronchodilators, and with the phenobarbital protocol for alcohol wit hdrawal.? Ultimately the patient was discharged home. Echocardiogram on 05/25/2021 showed severely decreased LV systolic function with ejection fraction 17%, and a possible apical thrombus.? There were regional wall motion abnormalities, with an akinetic basal inferior segment.? The right ventricle was mildly increased in size with mildly decreased right ventricular systolic function.? The atria were moderately to severely dilated.? There was [id number] MR, and mild TR, with calculated RVSP of 35 mm.? The IVC was dilated with less than 50% inspiratory collapse.? Only other echo in [facility] records was from 2016 and showed normal LV and RV size and fxn. Medications at discharge on 06/07/21 included Eliquis, digoxin 0.125 mg daily, Lasix 20 mg daily, and metoprolol extended release 25 mg b.i.d..? He had previously been on amlodipine and lisinopril, and those 2 medications were discontinued. The patient is reportedly homeless.? He is a current everyday smoker. HISTORY OF PRESENT ILLNESS:? The patient presented ambulatory to the ED on the afternoon of July 24 complaining of shortness of breath and chest pain.? Heart rate was 150 in atrial fibrillation.? There was significant JVD and 2+ peripheral edema.? Labs including troponin were unremarkable, except for the BNP which was 704 (last was 1975 in May).? Bedside echo showed diffuse LV hypokinesis with EF of 15%, with RV dilatation, and marked IVC distention with no inspiratory collapse.? He was treated with digoxin and low-dose metoprolol.? He began to develop some agitation, thought to be alcohol withdrawal.? He was given phenobarbital but had a paradoxical effect, therefore he was started on dexmedetomidine. A Duck[place]-Fawn catheter was placed showing pulmonary pressure of 60/30, wedge pressure of 30, and right atrial pressure of 20. Calculated cardiac output was 5.4 L/minute.? He was therefore started on a Lasix infusion, resulting in excellent urine output and a drop in his filling pressures.? The Lasix was turned off that night. Yesterday morning the Precedex was turned off and all day the patient was calm, oriented and appropriate, even very pleasant.? Was breathing easy with sat of 100% on room air.? He was in atrial fibrillation with his heart rate still uncontrolled, averaging around the 120s.? We gave him an extra dose of dig 0.25, with minimal improvement.? PAP was 60/29, w PAWP 29.? We restarted the Lasix infusion, with urine output reaching 500 cc/hour.? Last night, after further diuresis, PAP was down to 40/20, PAWP was down to 12, CVP was down to 8.? We stopped the diuresis last night and pulled the Duckwater-Fawn catheter. Repeat bedside ECHOCARDIOGRAM last night was notable for: 1. Severe global LV hypokinesis with EF 10-15%. 2. RV dilated with diminished function.? RV:LV cavity ratio approximately 1:1. 3. 1-2 +MR by color-flow. 4. Unable to obtain an RVSP estimate. 5. IVC was much smaller, measuring 1.0cm, with almost complete inspiratory collapse. Today the patient remains calm and appropriate (although he does not seem very bothered about the ?critical severity of his heart disease).? Heart rate is running 110-120, atrial fibrillation.? Blood pressure has risen to the 140-150 range.? He is breathing easy, with sat low to mid 90s on room air.? He is afebrile.? No JVD with the head of the bed at 30 degrees.? Chest is absolutely clear to auscultation, with normal expiratory phase.? Heart rate and rhythm are irregular, with normal-sounding S1 and S2.? I heard no murmur or gallops.? Abdo men is benign.? The patient has no peripheral edema. LABORATORY DATA:? As below.? Notably, the BUN and creatinine have dropped despite the vigorous diuresis, and the BNP has risen to 2762.? Digoxin level 1.7 this morning. IMPRESSION: 1. Chronic alcoholism.? No evidence of withdrawal at this time.? Continue to monitor.? 2. Severe biventricular cardiomyopathy.? Likely secondary to above.? Patient has been adequately diuresed.? There?s no more jugular venous distention, there?s no more edema, and his IVC is dramatically smaller with full inspiratory collapse.? Renal indices are even lower, indicating that we can continue with oral diuresis.? He was (supposed to be) on Lasix 20 mg daily at home.? I?ve restarted him on that dose. ??? The fact that his blood pressures up to the 140-150 range likely indicates that overall LV function is improved with diuresis.? He now needs afterload reduction.? We restarted the valsartan that he?s supposed to be on. 3. Atrial fibrillation w RVR.? Still not well controlled.? Continue dig 0.125 mg po daily, recheck level tomorrow morning.? Start Coreg today.? Discussed with Dr. Anderson:? If problems continue with controlling his rate, he could be started on amiodarone.? But we would wait until we see how he does with Coreg. Ultimately, it?s not clear that any of our efforts will prove fruitful, because the patient leaves the hospital and is noncompliant with his medications.? He has been told that he could tomorrow from heart failure, and he did not seem very perturbed by that.? The importance of taking his medications and attending to his follow-up medical visits must be repetitively emphasized to him. Time: [id number]. Critical Care Time (minutes): 0 Physical Exam Vital Signs: Vital Signs: Last Vital Signs Temp 98.5 F 07/27/21 08:00 Pulse 95 07/27/21 10:00 Resp 28 H 07/27/21 10:00 BP 144/93 H 07/27/21 10:00 Pulse Ox 86 L 07/27/21 10:00 Body Mass Index 25.2 Objective Data Labs CBC & Chem 7: 07/26/21 05:05 07/27/21 05:26 Labs: Laboratory Results - last 24 hr 07/26/21 07/27/21 07/27/21 11:02 05:26 05:26 PT 20.1 H INR 1.7 H Sodium 135 Potassium 4.1 Chloride 98 Carbon Dioxide 32 H Anion Gap 9 L BUN 9 Creatinine 0.69 Estim Creat Clear Calc 105.1 Estimated GFR > 60 Random Glucose 107 Calcium 8.0 L Phosphorus 4.1 Magnesium 1.3 L* Total Bilirubin 1.1 H AST 23 ALT 8 Alkaline Phosphatase 83 B-Natriuretic Peptide 2762 H Total Protein 5.2 L Albumin 3.1 L Digoxin 07/27/21 05:26 PT INR Sodium Potassium Chloride Carbon Dioxide Anion Gap BUN Creatinine Estim Creat Clear Calc Estimated GFR Random Glucose Calcium Phosphorus Magnesium Total Bilirubin AST ALT Alkaline Phosphatase B-Natriuretic Peptide Total Protein Albumin Digoxin 1.7 Quality Stroke Does the patient have a stroke diagnosis?: No VTE Prior VTE?: No VTE Risk Level:: Medical - moderate - high VTE Device Contraindication: N/A - Device Ordered VTE Drug Contraindication: N/A - Med Ordered
[2021-07-27] MEDS: Magnesium Sulfate/H2O 2 GM/50 ML PIGGYBACK IV (11:12)
[2021-07-27] MEDS: carvediloL 3.125 MG TABLET PO ×2 (11:12→20:20)
[2021-07-27] MEDS: Valsartan 40 MG TABLET PO (11:26)
--- NOTE | 2021-07-27 11:29 | PM.CNCAR ---
History of Present Illness History of Present Illness Date of Service: 07/27/21 Chief complaint: biventricula chf/a fib with rvr Narrative: This is a cardiology consultation regarding congestive heart failure and atrial fibrillation. He was recently seen in the hospital few weeks ago. Significant drinking history and he was admitted with heart failure symptoms and atrial fibrillation. He was directed to have severe cardiomyopathy at that time. Was placed on appropriate medical therapy. However he has been readmitted with increasing shortness of breath, weakness, continue drinking. He has been diuresed since admission. He is in atrial fibrillation with increased rates. When I questioned him regarding symptoms, he states some shortness of breath intermittently. No significant leg swelling at this time. Atypical momentary chest pains. With regard to drinking not clear how much he does drink every day as he is very reluctant to discuss that. States he drank only on the day before coming into the hospital but doubt if this is truly the case. Otherwise, also does not seem that he has been taking any medications at all. Review of Systems Review of Systems: Yes all other systems are reviewed and are negative Cardiovascular: Cardiovascular: Reports as per HPI, Reports no additional cardiovascular complaints, Denies acrocyanosis, Denies cool extremities, Denies painful fingertips, Denies chest pain, Denies chest pain at rest, Denies diaphoresis, Denies syncope, Denies irregular heart rhythm, Denies claudication, Denies leg edema, Denies lightheadedness, Denies palpitations and Reports dyspnea Respiratory: Respiratory: Reports dyspnea Neurologic: Denies syncope Endocrine: Endocrine: Denies palpitations [facility] Past Medical History Medical History (Updated 07/25/21 @ 16:14 by Jonny Chacko MD) Alcohol abuse COPD (chronic obstructive pulmonary disease) Hernia HTN (hypertension) Family History Family History Mother Hx of CABG Surgical History Surgical History H/O left knee surgery Social History Social History Household Members: Friend(s) Housing: Other Housing Other:: 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 Do you presently have visiting nurse or other home services: No Alcohol intake: current Alcohol intake frequency: 3 or more drinks per day Patient Tobacco Use Status: Current everyday Tobacco user Tobacco use type: Cigarette Cigarettes Per Day: 3 Years Smoked: 25 Smoked in Last 30 Days: Yes e-Cigarette/Vaping Use: Never Used Patient Interested in Nicotine Replacement: No Patient Given Instructions on How to Stop Smoking: No Second Hand Smoke Exposure: Yes Use of substances other than those prescribed or required for medical reasons: No Currently Displaying Signs/Symptoms of Drug Intoxication Withdrawal: No Any prior treatment program specific to substance use: No Have you been hit, kicked, punched, or otherwise hurt by someone within the past year? If so, by whom?: No Do you feel safe in your current relationship?: No Current Relationship Is there a partner from a previous relationship who is making you feel unsafe now?: No Are you made to feel afraid or neglected: No Advance Directives: No Advance Directives Information Provided: No Do you have thoughts of harming others: None Do you have a plan to hurt others: No Plan Recently lost weight without trying: No Eating poorly because of decreased appetite: No Nutrition Risks: No Nutritional Risk Poor oral hygiene: Yes service: No Current occupational status: retired [employer] Allergies Allergy/AdvReac Type Severity Reaction Status Date / Time bee pollen [BEE STINGS] Allergy Severe SWELLING Verified 06/29/21 14:53 NSAIDs/HCTZ/Chlorthalidone Allergy Unknown hyponatremi Uncoded 06/29/21 14:53 a Active Medications: Current Medications Apixaban (Apixaban 5 Mg Tablet) 5 mg PO BID [facility] Last Admin: 07/27/21 07:56 Dose: 5 mg Documented by: Carvedilol (Carvedilol 3.125 Mg Tablet) 3.125 mg PO BID [facility]; Protocol Last Admin: 07/27/21 11:12 Dose: 3.125 mg Documented by: Digoxin (Digoxin 0.125 Mg Tablet) 0.125 mg PO DAILY [facility] Last Admin: 07/27/21 07:55 Dose: 0.125 mg Documented by: Folic Acid (Folic Acid 1 Mg Tablet) 1 mg PO DAILY [facility] Last Admin: 07/27/21 07:56 Dose: 1 mg Documented by: Hydromorphone HCl (Hydromorphone Hcl 0.5 Mg/0.5 Ml Syringe) 0.5 mg IVPUSH Q4H PRN; Protocol PRN Reason: Pain, Severe (Pain Scale 7-10) Last Admin: 07/27/21 03:32 Dose: 0.5 mg Documented by: Magnesium Sulfate (Magnesium Sulfate/H2o) 2 gm in 50 mls @ 25 mls/hr IV ONCE ONE Stop: 07/27/21 12:18 Last Admin: 07/27/21 11:12 Dose: 25 mls/hr Documented by: Medication (No Benzodiazepines) 1 each MISCELLANE DAILY [facility] Omeprazole (Omeprazole 40 Mg Capsule.Dr) 40 mg PO DAILY@0630 [facility] Last Admin: 07/27/21 05:31 Dose: 40 mg Documented by: Thiamine HCl (Thiamine Hcl 100 Mg Tablet) 100 mg PO DAILY [facility] Last Admin: 07/27/21 07:55 Dose: 100 mg Documented by: Valsartan (Valsartan 40 Mg Tablet) 40 mg PO DAILY [facility]; Protocol Last Admin: 07/27/21 11:26 Dose: 40 mg Documented by: Physical Exam Vital Signs: Vital Signs: Last Vital Signs Temp 98.5 F 07/27/21 08:00 Pulse 111 H 07/27/21 11:26 Resp 20 07/27/21 11:00 BP 140/90 H 07/27/21 11:26 Pulse Ox 95 07/27/21 11:00 Body Mass Index 25.2 Const: General: cooperative and no acute distress HENMT: Other: Unremarkable Neck: Neck: Yes normal visual inspection Chest: Chest palpation & inspection: normal inspection of the chest Resp: Auscultation: clear to auscultation bilaterally, no crackles and no wheezes Cardio: Jugular venous distension: no JVD Palpation: normal PMI Heart sounds: S1 normal heart sound present, S2 normal heart sound present, no gallops, no murmurs and no rubs GI: Palpation (GI): Soft to palpation Back/Spine/Pelvis: Other: unremarkable Skin: General skin exam: no rashes or lesions noted Neuro: Cranial nerves: Yes Other cranial nerve findings present Extrem: General: Yes no clubbing, cyanosis or edema Psych: Mental Status: other Results Labs and Meds Result diagrams: 07/26/21 05:05 07/27/21 05:26 Lab results: Laboratory Results - last 24 hr 07/26/21 07/27/21 07/27/21 11:02 05:26 05:26 PT 20.1 H INR 1.7 H Sodium 135 Potassium 4.1 Chloride 98 Carbon Dioxide 32 H Anion Gap 9 L BUN 9 Creatinine 0.69 Estim Creat Clear Calc 105.1 Estimated GFR > 60 Random Glucose 107 Calcium 8.0 L Phosphorus 4.1 Magnesium 1.3 L* Total Bilirubin 1.1 H AST 23 ALT 8 Alkaline Phosphatase 83 B-Natriuretic Peptide 2762 H Total Protein 5.2 L Albumin 3.1 L Digoxin 07/27/21 05:26 PT INR Sodium Potassium Chloride Carbon Dioxide Anion Gap BUN Creatinine Estim Creat Clear Calc Estimated GFR Random Glucose Calcium Phosphorus Magnesium Total Bilirubin AST ALT Alkaline Phosphatase B-Natriuretic Peptide Total Protein Albumin Digoxin 1.7 ECG Interpretation: EKG with atrial fibrillation with rapid rate with underlying right bundle-branch block. Assessment and Plan (1) Acute on chronic systolic (congestive) heart failure: Status: Acute (2) Atrial fibrillation with rapid ventricular response: Status: Acute (3) Alcohol abuse: Status: Acute (4) Apical mural thrombus: Status: Acute Poorly controlled atrial fibrillation with decompensated acute heart failure due to continued alcohol abuse and also noncompliant with medications. Unknown coronary status. Overall, very poor understanding and in spite of prior conversations and other conversation today, doubt he really understands the magnitude of the situation. I explained him the high likelihood of if he does not changes habits. With regard to medical therapy, agree with beta-blockers and digoxin. If this does not help with heart rate, then possibly amiodarone for rate control purposes can be used. He is not a candidate for HU/cardioversion based on his alcohol abuse and noncompliance. Otherwise, continue with anticoagulation. Diuretics. Will follow up with you. High sensitivity troponins are 41.8 and 40.9. BNP is 2 762 today; in the past as much as 3100. Creatinine 0.69. Alcohol level ninety-seven upon arrival. Digoxin level is 1.7 which is elevated and dose adjustments to be made and discussed about this with . Procedures Date of Service Date of Service: 07/27/21
[2021-07-27] MEDS: Furosemide 20 MG TABLET PO (13:10)
--- NOTE | 2021-07-27 15:36 | MHC.CM.PN ---
Received correspondence from broad referral placement: several facilities are interested and will await PT eval for formal acceptance. Pt will need HNE authorization to transfer to [facility]. to follow
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
--- NOTE | 2021-07-27 19:32 | MHC.RECOVSUP ---
? Reason for consult Recovery Support o Current location: [facility] o Identified substance use concern: alcohol <del>-</del> <del>Overdose</del> <del>-</del> <del>Withdrawal</del> <del>-</del> <del>Seeking</del> <del>ATS</del> <del>(detox)</del> - Support ? Intervention: <del>o</del> <del>ATS</del> <del>bed</del> <del>search</del> <del>started/completed/in</del> <del>process</del> <del>o</del> <del>MAT</del> <del>started</del> <del>or</del> <del>to</del> <del>be</del> <del>started</del> o Community resources provided o Harm reduction discussion ? Plan: <del>o</del> <del>Referral</del> <del>to</del> <del>[facility]</del> <del>o</del> <del>Bed</del> <del>search</del> <del>in</del> <del>progress</del> <del>to</del> <del>o</del> <del>Follow</del> <del>up</del> <del>tomorrow</del> <del>o</del> <del>Patient</del> <del>awaiting</del> <del>crisis</del> <del>evaluation</del> o Patient to follow up with [facility] after discharge ? Additional information: Met with Patient and we talk about recovery..patient stated that he needs help with housing and would like to talk to a telehealth case manager
--- NOTE | 2021-07-27 19:42 | MHC.CARE ---
CARE team consult received for pt who was admitted to ICU from ED and has since been transferred to [facility]. Consult is for homelessness, alcohol use, and noncompliance with home medications. Chart reviewed- pt has no psych history and is not prescribed psych meds. head field hockey coach met with pt to discuss his alcohol use and offer support and resources. Case management is involved and discharge plan is for transfer to a short term rehab facility. This check writer will bring pt information for local homeless shelters and housing case management services this evening. He will need to follow up with these resources independently after he is discharged from [facility], as shelters don't accept referrals and individuals are encouraged to self present and request housing services.
--- NOTE | 2021-07-27 20:29 | MHC.CARE ---
Met with pt. He shared that he is figuring out how to start the process for applying for social security prior to his 61 birthday in November 2022. He was encouraged to contact the shelters while he's still in the hospital to get more information about how they're currently operating with covid restrictions and regulations. He said he has already submitted applications to the housing authorities in [facility], and [place]. Consult complete a
[2021-07-28] VITALS (12 sets, daily range): BP systolic 110–137; BP diastolic 70–91; PULSE 65–96; RESP 15–19; TEMP 36.6–36.8; O2SAT 95–98; BMI 23.8
--- NOTE | 2021-07-28 00:09 | PC.NURSE ---
Pt noted to have a burst of rapid AFIB in the 160s, pt assessed and stable. HR back down to 1-teens. Will continue to monitor.
[2021-07-28] MEDS: Omeprazole 40 MG CAPSULE.DR PO (05:59)
[2021-07-28] MEDS: HYDROmorphone HCl 0.5 MG/0.5 ML SYRINGE IVPUSH ×2 (05:59→20:50)
[2021-07-28 07:38] LABS: Anion Gap 9 (12-20); Blood Urea Nitrogen 7 mg/dL (9-16); Calcium 8.1 mg/dL (8.4-10.2); Carbon Dioxide 35 mmol/L (22-29); Chloride 92 mmol/L (96-108); Creatinine Clr Calc Pharmacy 109.8; Estimated Glomerular Filt Rate > 60; Glucose Random 108 mg/dL (60-115); Magnesium 1.4 mg/dL (1.6-2.6); Phosphorus 3.2 mg/dL (2.7-4.5); Potassium 4.1 mmol/L (3.3-5.1); Sodium 132 mmol/L (135-145)
[2021-07-28] MEDS: Digoxin 0.125 MG TABLET PO (08:42)
[2021-07-28] MEDS: Thiamine HCL 100 MG TABLET PO (08:42)
[2021-07-28] MEDS: Magnesium Sulfate/H2O 2 GM/50 ML PIGGYBACK IV (08:42)
[2021-07-28] MEDS: carvediloL 3.125 MG TABLET PO ×2 (08:42→20:51)
[2021-07-28] MEDS: Apixaban 5 MG TABLET PO ×2 (08:42→20:51)
[2021-07-28] MEDS: Folic Acid 1 MG TABLET PO (08:42)
[2021-07-28] MEDS: Valsartan 40 MG TABLET PO (08:43)
[2021-07-28] MEDS: Furosemide 20 MG TABLET PO (08:43)
[2021-07-28 09:51] LABS: Digoxin 1.3 ng/mL (0.8-2.0)
--- NOTE | 2021-07-28 11:13 | MHC.CM.PN ---
Patient is not yet medically cleared for dc (IV Dilaudid today, IV Magnesium,Burst of Afib(160s);PT is recommending STR and [facility] auth will need to be obtained.CM will follow.
--- NOTE | 2021-07-28 11:34 | PM.PNCARD ---
Subjective Subjective Date of Service: 07/28/21 Interval history: States that he feels OK. No new complaints. Review of Systems Review of Systems Yes all other systems are reviewed and are negative Cardiovascular: Reports as per HPI, Reports no additional cardiovascular complaints, Denies acrocyanosis, Denies cool extremities, Denies painful fingertips, Denies chest pain, Denies chest pain at rest, Denies diaphoresis, Denies syncope, Denies irregular heart rhythm, Denies claudication, Denies leg edema, Denies lightheadedness, Denies palpitations and Reports dyspnea Respiratory: Reports dyspnea Denies syncope Endocrine: Denies palpitations Physical Exam Vital Signs: Last Vital Signs Temp 98.1 F 07/28/21 07:40 Pulse 96 07/28/21 08:43 Resp 19 07/28/21 07:40 BP 137/81 07/28/21 08:43 Pulse Ox 95 07/28/21 07:40 Body Mass Index 23.8 Const General: cooperative and no acute distress HENPR Other: Unremarkable Neck Neck: Yes normal visual inspection Chest Chest palpation & inspection: normal inspection of the chest Resp Auscultation: clear to auscultation bilaterally, no crackles and no wheezes Cardio Jugular venous distension: no JVD Palpation: normal PMI Heart sounds: S1 normal heart sound present, S2 normal heart sound present, no gallops, no murmurs and no rubs GI Palpation (GI): Soft to palpation Back/Spine/Pelvis Other: unremarkable Skin General skin exam: no rashes or lesions noted Neuro Cranial nerves: Yes Other cranial nerve findings present Extrem General: Yes no clubbing, cyanosis or edema Psych Mental Status: other Results Labs and Meds Result diagrams: 07/26/21 05:05 07/28/21 06:17 Lab results: Laboratory Results - last 24 hr 07/28/21 07/28/21 06:17 09:00 Sodium 132 L Potassium 4.1 Chloride 92 L Carbon Dioxide 35 H Anion Gap 9 L BUN 7 L Creatinine 0.66 Estim Creat Clear Calc 109.8 Estimated GFR > 60 Random Glucose 108 Calcium 8.1 L Phosphorus 3.2 Magnesium 1.4 L* Digoxin 1.3 Progress Note: A&P Assessment and plan (1) Acute on chronic systolic (congestive) heart failure: Status: Acute (2) Atrial fibrillation with rapid ventricular response: Status: Acute (3) Alcohol abuse: Status: Acute (4) Apical mural thrombus: Status: Acute Assessment and Plan: Poorly controlled atrial fibrillation with decompensated acute heart failure due to continued alcohol abuse and also noncompliant with medications. Unknown coronary status. With regard to medical therapy, agree with beta-blockers and digoxin. If this does not help with heart rate, then possibly amiodarone for rate control purposes can be used. Today's heart rate however seems much better and his ventricular rate is about 100/Min. He is not a candidate for HU/cardioversion based on his alcohol abuse and noncompliance. Otherwise, continue with anticoagulation. Diuretics. High sensitivity troponins are 41.8 and 40.9. BNP 2762; in the past as much as 3100. Creatinine 0.69. Alcohol level elevated upon arrival. Dig level noted. Will need to be followed as outpt, if he can comply. Poor insight into medical issues. Fall Risk Details Current Medications: Current Medications Apixaban (Apixaban 5 Mg Tablet) 5 mg PO BID [facility] Last Admin: 07/28/21 08:42 Dose: 5 mg Documented by: Carvedilol (Carvedilol 3.125 Mg Tablet) 3.125 mg PO BID [facility]; Protocol Last Admin: 07/28/21 08:42 Dose: 3.125 mg Documented by: Digoxin (Digoxin 0.125 Mg Tablet) 0.125 mg PO DAILY [facility] Last Admin: 07/28/21 08:42 Dose: 0.125 mg Documented by: Folic Acid (Folic Acid 1 Mg Tablet) 1 mg PO DAILY [facility] Last Admin: 07/28/21 08:42 Dose: 1 mg Documented by: Furosemide (Furosemide 20 Mg Tablet) 20 mg PO DAILY [facility]; Protocol Last Admin: 07/28/21 08:43 Dose: 20 mg Documented by: Hydromorphone HCl (Hydromorphone Hcl 0.5 Mg/0.5 Ml Syringe) 0.5 mg IVPUSH Q4H PRN; Protocol PRN Reason: Pain, Severe (Pain Scale 7-10) Last Admin: 07/28/21 05:59 Dose: 0.5 mg Documented by: Medication (No Benzodiazepines) 1 each MISCELLANE DAILY [facility] Omeprazole (Omeprazole 40 Mg Capsule.) 40 mg PO DAILY@0630 [facility] Last Admin: 07/28/21 05:59 Dose: 40 mg Documented by: Thiamine HCl (Thiamine Hcl 100 Mg Tablet) 100 mg PO DAILY [facility] Last Admin: 07/28/21 08:42 Dose: 100 mg Documented by: Valsartan (Valsartan 40 Mg Tablet) 40 mg PO DAILY [facility]; Protocol Last Admin: 07/28/21 08:43 Dose: 40 mg Documented by: Time Spent With Patient Time: Total time spent is greater than 50% in coordination of care (as documented) at patient's floor/unit and/or counseling patient: Time with patient: less than 15 minutes Progress Note: Quality Stroke Does the patient have a stroke diagnosis?: No Procedures Date of Service Date of Service: 07/28/21
[2021-07-28 11:53] LABS: Uric Acid 7.5 mg/dL (3.4-7.0)
--- NOTE | 2021-07-28 13:15 | MHC.CM.PN ---
CM met with Patient to discuss PT's recommendation for STR and Patient is agreeable. CM has updated referrals to SNFs that are contracted with [facility] and await a bed offer.CM will follow.
--- NOTE | 2021-07-28 13:42 | HO.PM.IMPN ---
Subjective Subjective Date of Service: 07/28/21 Interval History: Patient seen and examined at bedside. He reports that his shortness of breath has improved. He has not had any tachycardia overnight. He is not in alcohol withdrawal. He denies any chest pain, no shortness of breath at this time. He reports no abdominal pain nausea or vomiting. No diarrhea constipation. Significant improvement of his swelling in his legs. Patient is complaining of left knee pain and swelling that is been going on for few days. Patient reports on and off knee pain generally. Review of Systems Review of Systems: Yes all other systems are reviewed and are negative and Unobtainable due to mental condition Physical Exam Vital Signs: Vital Signs: Last Vital Signs Temp 97.9 F 07/28/21 11:52 Pulse 86 07/28/21 11:52 Resp 18 07/28/21 11:52 BP 137/91 H 07/28/21 11:52 Pulse Ox 97 07/28/21 11:52 Body Mass Index 23.8 Const: General: cooperative and no acute distress Orientation/consciousness: patient oriented x3 Resp: Effort & Inspection: normal respiratory effort and able to speak in complete sentences Auscultation: clear to auscultation bilaterally Cardio: Rate: regular rate Rhythm: regular rhythm GI: Palpation (GI): Soft to palpation Auscultation: normal bowel sounds Neuro: General: patient oriented x3 Extrem: Other: Left knee swelling, no erythema or warmth. Range of motion limited due to pain. General: Yes no pedal edema Objective Data Active Medications Apixaban (Apixaban 5 Mg Tablet) 5 mg PO BID [facility] Last Admin: 07/28/21 08:42 Dose: 5 mg Documented by: CHRISTOFER Carvedilol (Carvedilol 3.125 Mg Tablet) 3.125 mg PO BID [facility]; Protocol Last Admin: 07/28/21 08:42 Dose: 3.125 mg Documented by: CHRISTOFER Digoxin (Digoxin 0.125 Mg Tablet) 0.125 mg PO DAILY [facility] Last Admin: 07/28/21 08:42 Dose: 0.125 mg Documented by: CHRISTOFER Folic Acid (Folic Acid 1 Mg Tablet) 1 mg PO DAILY [facility] Last Admin: 07/28/21 08:42 Dose: 1 mg Documented by: CHRISTOFER Furosemide (Furosemide 20 Mg Tablet) 20 mg PO DAILY [facility]; Protocol Last Admin: 07/28/21 08:43 Dose: 20 mg Documented by: CHRISTOFER Hydromorphone HCl (Hydromorphone Hcl 0.5 Mg/0.5 Ml Syringe) 0.5 mg IVPUSH Q4H PRN; Protocol PRN Reason: Pain, Severe (Pain Scale 7-10) Last Admin: 07/28/21 05:59 Dose: 0.5 mg Documented by: QUOC Medication (No Benzodiazepines) 1 each MISCELLANE DAILY [facility] Omeprazole (Omeprazole 40 Mg Capsule.Dr) 40 mg PO DAILY@0630 [facility] Last Admin: 07/28/21 05:59 Dose: 40 mg Documented by: QUOC Thiamine HCl (Thiamine Hcl 100 Mg Tablet) 100 mg PO DAILY [facility] Last Admin: 07/28/21 08:42 Dose: 100 mg Documented by: CHRISTOFER Valsartan (Valsartan 40 Mg Tablet) 40 mg PO DAILY [facility]; Protocol Last Admin: 07/28/21 08:43 Dose: 40 mg Documented by: CHRISTOFER Labs CBC & Chem 7: 07/26/21 05:05 07/28/21 06:17 Labs: Laboratory Results - last 24 hr 07/28/21 07/28/21 06:17 09:00 Anion Gap 9 L Estim Creat Clear Calc 109.8 Estimated GFR > 60 Random Glucose 108 Uric Acid 7.5 H Calcium 8.1 L Phosphorus 3.2 Magnesium 1.4 L* Digoxin 1.3 Assessment and Plan (1) Hypomagnesemia: Status: Acute (2) Atrial fibrillation with rapid ventricular response: Status: Acute (3) Acute congestive heart failure: Status: Acute (4) Alcohol withdrawal: Status: Acute Assessment and Plan: This is a 60-year-old male with past medical history of AFib, congestive cardiomyopathy, alcohol abuse, COPD, as well as hypertension who presented to hospital on 07/24 with increased dyspnea, found to be in congestive heart failure as well as AFib with RVR. Patient was admitted to ICU, treated with IV drip, Precedex for alcohol withdrawal, and was started on digoxin. Patient is now euvolemic, heart rate controlled, and patient is cleared by Cardiology for discharge, pending rehab placement. # acute CHF exacerbation - patient treated with IV Lasix drip in the ICU - currently patient is euvolemic - no hypoxia at this time, denies any dyspnea - back on his p.o. Lasix of 20 mg daily, continue valsartan - will continue to monitor his I&O - cardiology cleared patient for discharge, pending rehab place # AFib with RVR-resolved - rate controlled - continue digoxin, carvedilol, Eliquis - digoxin level 1.3 today # alcohol abuse with withdrawal - patient was treated with Precedex in the ICU - currently has no alcohol withdrawal symptoms - continue folic acid and thiamine # hypo magnesemia - repleted - follow magnesium level # hyponatremia - sodium of 132 - most likely multifactorial - follow BMP # left knee pain - no erythema, no warmth, has tenderness as well as swelling - denies any trauma -will obtain x-ray uric acid level - treatment per x-ray findings - p.r.n. Tylenol # COPD - currently symptoms free, no wheezing, no cough, no sputum production - continue home inhalers # hypertension - stable - continue valsartan and carvedilol DVT prophylaxis: Tim Patient cleared by Cardiology for discharge but meets rehab, currently awaiting authorization Quality Stroke Does the patient have a stroke diagnosis?: No VTE Prior VTE?: No VTE Risk Level:: Medical - moderate - high VTE Device Contraindication: N/A - Device Ordered VTE Drug Contraindication: N/A - Med Ordered
[2021-07-29] VITALS (7 sets, daily range): BP systolic 124–133; BP diastolic 78–81; PULSE 87–95; RESP 18; TEMP 36.6–36.9; O2SAT 96–98; BMI 23.4
[2021-07-29] MEDS: HYDROmorphone HCl 0.5 MG/0.5 ML SYRINGE IVPUSH ×2 (02:05→06:11)
[2021-07-29] MEDS: Omeprazole 40 MG CAPSULE.DR PO (06:07)
[2021-07-29 07:48] LABS: Anion Gap 12 (12-20); Blood Urea Nitrogen 7 mg/dL (9-16); Calcium 8.2 mg/dL (8.4-10.2); Carbon Dioxide 31 mmol/L (22-29); Chloride 91 mmol/L (96-108); Creatinine Clr Calc Pharmacy 113.3; Estimated Glomerular Filt Rate > 60; Glucose Random 119 mg/dL (60-115); Potassium 4.3 mmol/L (3.3-5.1); Sodium 130 mmol/L (135-145)
[2021-07-29 08:18] LABS: Magnesium 1.6 mg/dL (1.6-2.6)
[2021-07-29] MEDS: Valsartan 40 MG TABLET PO (08:37)
[2021-07-29] MEDS: Apixaban 5 MG TABLET PO (08:37)
[2021-07-29] MEDS: Furosemide 20 MG TABLET PO (08:38)
[2021-07-29] MEDS: carvediloL 3.125 MG TABLET PO (08:38)
[2021-07-29] MEDS: Digoxin 0.125 MG TABLET PO (08:38)
[2021-07-29] MEDS: Thiamine HCL 100 MG TABLET PO (08:38)
[2021-07-29] MEDS: Folic Acid 1 MG TABLET PO (08:38)
--- NOTE | 2021-07-29 08:58 | MHC.CM.PN ---
Per discussion with Medical, Patient will be medically cleared for dc to SNF/STR today.Patient will dc to [facility] today at noon via [facility]. Patient is aware of and in agreement with the dc plan.
[2021-07-29 10:07] LABS: COVID-19 Test Negative (Negative)
--- NOTE | 2021-07-29 11:08 | P.DS_ITS ---
DS: Providers Provider Date of Service: 07/29/21 <BRANDEN Moore - Last Filed: 07/29/21 11:29> Date of admission: 07/24/21 16:36 <BRANDEN Moore - Last Filed: 07/29/21 11:29> Primary care physician: Antonino Ramsey [employer] <BRANDEN Moore - Last Filed: 07/29/21 11:29> Consults: 07/27/21 10:25 Consult to Cardiology Routine Consulting Provider: Reyes Anderson Reason for consultation: Biventricular heart failure 07/27/21 14:46 Consult to Care Team Routine Comment: Pt homeless/ETOH, non-compliant with meds at home Reason for consultation: Discharge planning Has provider been notified: Yes <BRANDEN Moore - Last Filed: 07/29/21 11:29> Attending physician on discharge: Mike Diop <BRANDEN Moore - Last Filed: 07/29/21 11:29> Discharging clinician: Makayla Pittman <BRANDEN Moore - Last Filed: 07/29/21 11:29> DS: Diagnosis Discharge Diagnosis (1) Acute congestive heart failure: Status: Acute <BRANDEN Moore - Last Filed: 07/29/21 11:29> (2) Hypomagnesemia: Status: Acute <BRANDEN Moore - Last Filed: 07/29/21 11:29> (3) Atrial fibrillation with rapid ventricular response: Status: Acute <BRANDEN Moore - Last Filed: 07/29/21 11:29> (4) Alcohol withdrawal: Status: Acute <BRANDEN Moore - Last Filed: 07/29/21 11:29> DS: Summary Hospital Course Hospital Course: from H&P on day of admission 60-year-old male chronic alcoholic with a known congestive cardiomyopathy and probable persistent atrial fibrillation presents with increased dyspnea and weakness and continues to drink last drink reportedly about 12 hours ago and also not secure about his compliance with medicine so it does not seem he is taking his metoprolol or digoxin presents with rapid atrial fibrillation a [id number] degree of tachypnea so there is some degree of respiratory distress mildly hypoxic with evidence of bilateral right greater than left pleural effusions on chest x-ray no infiltrate significant cardiomegaly and bedside echo demonstrating ejection fraction 15-20% severe dilatation with diffuse hypokinesis and dilatation of the right ventricle as well and a both atria no primary valve or pericardial disease but there is marked distention of the inferior vena cava so there is evidence here of biventricular failure in the face of rapid atrial fibrillation marginal blood pressure He was admitted to the ICU for management of atrial fibrillation with rapid ventricular resonse, acute on chronic chf and alcohol withdrawal. He had Oley- Fawn catheter placed, was started on a Lasix drip for acute on chronic heart failure with reduced ejection fraction. For atrial fibrillation his metoprolol was changed to Coreg, he was continued on digoxin as well as anticoagulation with Eliquis. Amlodipine and lisinopril were discontinued. He was started on valsartan. For alcohol withdrawal he was started on phenobarbital. However he developed agitation and had a paradoxical effect so was placed on Precedex. Hypomagnesemia wa likely related to alcohol use. Magnesium was replaced and improved. He diuresed well with Lasix drip, JVD resolved and respiratory status improved. His swan fawn catheter was removed, he was changed to oral lasix and he was downgraded to the medical floor. Blood pressure has been well controlled on valsartan and carvedilol. He had no symptoms of COPD exacerbation. The patient has had some left knee pain, xray shows a small effusion, no evidence of infection. He is encouraged to abstain from alcohol use. He should follow a low sodium diet. He is now stable for discharge and will be transferred to snf facility for short-term rehab. Anticipate less than 30 day stay at SNF Attending Attestation: Date of service: 07/29/21 I have personally seen and examined the patient independently, reviewed the NPP history, exam and?MDM and agree with the assessment and discharge plan as? written above. <BRANDEN Moore - Last Filed: 07/29/21 11:29> Time Spent with Patient Time attestation: Total time spent providing and/or coordinating discharge services: <BRANDEN Moore - Last Filed: 07/29/21 11:29> Discharge coordination time: Greater than 30 minutes <BRANDEN Moore - Last Filed: 07/29/21 11:29> Quality: Stroke Does the patient have a stroke diagnosis?: No <BRANDEN Moore - Last Filed: 07/29/21 11:29> Physical Exam Vital Signs: Vital Signs: Last Vital Signs Temp 98.5 F 07/29/21 08:00 Pulse 95 07/29/21 08:38 Resp 18 07/29/21 08:00 BP 124/78 07/29/21 08:38 Pulse Ox 97 07/29/21 08:00 Body Mass Index 23.4 <BRANDEN Moore - Last Filed: 07/29/21 11:29> Const: General: comfortable, no acute distress, awake and Physically active <BRANDEN Moore - Last Filed: 07/29/21 11:29> Nutritional Appearance: well nourished <BRANDEN Moore - Last Filed: 07/29/21 11:29> HENMT: Head: Yes normocephalic and Yes atraumatic <BRANDEN Moore - Last Filed: 07/29/21 11:29> Eyes: Sclerae: sclerae normal <BRANDEN Moore - Last Filed: 07/29/21 11:29> Resp: Effort & Inspection: normal respiratory effort and no respiratory distress <BRANDEN Moore - Last Filed: 07/29/21 11:29> Cardio: Rate: regular rate <BRANDEN oMore - Last Filed: 07/29/21 11:29> GI: Palpation (GI): Soft to palpation and nontender <BRANDEN Moore - Last Filed: 07/29/21 11:29> Neuro: Cranial nerves: Yes CN's II-XII intact bilaterally and Yes Bilaterally intact EOM present <BRANDEN Moore - Last Filed: 07/29/21 11:29> Extrem: Other: no leg edema; no erythema left knee <BRANDEN Moore - Last Filed: 07/29/21 11:29> DS: Data Data Completed and Pending Completed studies during hospitalization [Text1]: Procedures Detoxification Services for Substance Abuse Treatment (05/24/21) <BRANDEN Moore - Last Filed: 07/29/21 11:29> Labs on day of discharge: Laboratory Results - last 24 hr 07/28/21 07/29/21 07/29/21 06:17 06:57 09:45 Sodium 130 L Potassium 4.3 Chloride 91 L Carbon Dioxide 31 H Anion Gap 12 BUN 7 L Creatinine 0.64 Estim Creat Clear Calc 113.3 Estimated GFR > 60 Random Glucose 119 H Uric Acid 7.5 H Calcium 8.2 L Magnesium 1.6 COVID-19 (JAMAR) Negative COVID-19 Clin Com See Note <BRANDEN Moore - Last Filed: 07/29/21 11:29> Discharge Plan Discharge Patient Disposition: Xfer SNF <BRANDEN Moore - Last Filed: 07/29/21 11:29> Discharge Diagnosis: acute CHF exacerbation afib with RVR alcohol withdrawal <BRANDEN Moore - Last Filed: 07/29/21 11:29> acute CHF exacerbation afib with RVR alcohol withdrawal <Mike Diop MD - Last Filed: 07/30/21 08:04> [facility] Center,Counts Include [facility] [Physician] - 1 Week <BRANDEN Moore - Last Filed: 07/29/21 11:29> Discharge Medications: New thiamine mononitrate (vit B1) 100 mg Tablet 100 mg PO DAILY 30 Days Qty: 30 RF: 0 omeprazole 40 mg Capsule,Delayed Release(Dr/Ec) 40 mg PO DAILY@0630 30 Days Qty: 30 RF: 0 carvedilol [Coreg] 3.125 mg tablet 3.125 mg PO BID 30 Days Qty: 60 RF: 0 Continued Eliquis 5 mg tablet 5 mg PO BID Qty: 60 RF: 5 folic acid 1 mg Tablet 1 mg PO DAILY Qty: 30 RF: 0 digoxin 125 mcg (0.125 mg) Tablet 0.125 mg PO DAILY Qty: 30 RF: 0 furosemide 20 mg Tablet 20 mg PO DAILY Qty: 30 RF: 0 valsartan 40 mg tablet 40 mg PO DAILY 30 Days Qty: 30 RF: 2 Discontinued metoprolol succinate 25 mg Tablet Extended Release 24 Hr 25 mg PO BID Qty: 60 RF: 0 <BRANDEN Moore - Last Filed: 07/29/21 11:29> Discharge Orders: Discharge Order (Routine); Ordered 07/29/21 Ordered By: Makayla Pittman <BRANDEN Moore - Last Filed: 07/29/21 11:29> Diet: low salt diet <BRANDEN Moore - Last Filed: 07/29/21 11:29> low salt diet <Mike Diop MD - Last Filed: 07/30/21 08:04> Activity on Discharge: As tolerated <BRANDEN Moore - Last Filed: 07/29/21 11:29> As tolerated <Mike Diop MD - Last Filed: 07/30/21 08:04> Stand Alone Forms: Patient Portal Discharge page <BRANDEN Moore - Last Filed: 07/29/21 11:29> Care Plan Goals: see below <BRANDEN Moore - Last Filed: 07/29/21 11:29> Health Concerns: Afib RVR Acute heart failure alcohol withdrawal hyponatremia <BRANDEN Moore - Last Filed: 07/29/21 11:29> Plan of Treatment: take all medications as prescribed weigh yourself daily, follow a low salt diet call to schedule follow up appointment with the automotive parts coordinator abstain from using alcohol recommend checking BMP in 1 weeks and periodically thereafter <BRANDEN Moore - Last Filed: 07/29/21 11:29> Assessment: see discharge summary <BRANDEN Moore - Last Filed: 07/29/21 11:29> Discharge Date/Time: 07/29/21 13:28 <BRANDEN Moore - Last Filed: 07/29/21 11:29>
== END 2021-07-29 13:28 | disposition skilled nursing facility (03) | DRG 194 ==
LOC: HO.ED 13:47 → HO.EDOVER 16:45 → HO.ICU 16:46 → HO.IMC 07-27 17:37
PROVIDERS: Anesthesiology; Internal Medicine; Physician Assistant Medical; Admitting Provider Internal Medicine Cardiovascular Disease; Emergency Provider Emergency Medicine Emergency Medical Services; PCP Nurse Practitioner Family; Visit Provider Physician Assistant Medical
DX: I11.0 Hypertensive heart disease with heart failure (principal); E87.1 Hypo-osmolality and hyponatremia; I42.8 Other cardiomyopathies; Z79.01 Long term (current) use of anticoagulants; I50.23 Acute on chronic systolic (congestive) heart failure; I23.6 Thrombosis of atrium, auricular appendage, and ventricle as current complications following acute myocardial infarction; I48.19 Other persistent atrial fibrillation; F17.210 Nicotine dependence, cigarettes, uncomplicated; E83.42 Hypomagnesemia; Y90.4 Blood alcohol level of 80-99 mg/100 ml; J44.9 Chronic obstructive pulmonary disease, unspecified; M25.462 Effusion, left knee; F10.239 Alcohol dependence with withdrawal, unspecified; Z20.822 Contact with and (suspected) exposure to COVID-19; Z59.01 Sheltered homelessness; Z91.14 Patient's other noncompliance with medication regimen; Z88.6 Allergy status to analgesic agent; Z79.899 Other long term (current) drug therapy
CPT/HCPCS: 36415; 36600; 71045; 73560; 80048; 80053; 80162; 82077; 82803; 83605; 83735; 83880; 84100; 84443; 84484; 84550; 85025; 85027; 85610; 85730; 87635; 93005; 96374; 96375; 96376; 97110; 97162; 99285; 99291; C1758; J1160; J1170; J1650; J1940; J2060; J2270; J2560; J3411; J3475

== ENCOUNTER 2021-07-30 06:44 | Outpatient (REF) | payer OTHER, SELFPAY ==
[2021-07-30 07:14] LABS: Hematocrit 33.4 % (42.0-52.0); Hemoglobin 10.5 g/dl (14.0-18.0); Mean Corpuscular HGB Conc 31.4 g/dl (31.0-36.0); Mean Corpuscular Hemoglobin 25.6 pg (27.0-33.0); Mean Corpuscular Volume 81.5 fL (80.0-98.0); Mean Platelet Volume 9.5 fL (9.4-12.4); Platelet Count 245 X10*3/uL (160-400); Red Cell Distribution Width 16.6 % (11.0-16.0); White Blood Count 7.5 X10*3/uL (4.8-10.8)
[2021-07-30 07:31] LABS: Alanine Aminotransferase 6 U/L (0-40); Alkaline Phosphatase 74 U/L (39-117); Anion Gap 12 (12-20); Aspartate Amino Transferase 14 U/L (5-37); Blood Urea Nitrogen 6 mg/dL (9-16); Calcium 8.2 mg/dL (8.4-10.2); Carbon Dioxide 29 mmol/L (22-29); Chloride 96 mmol/L (96-108); Estimated Glomerular Filt Rate > 60; Glucose Random 100 mg/dL (60-115); Sodium 133 mmol/L (135-145); Total Protein 5.3 g/dL (6.5-8.0)
== END 2021-07-30 06:45 | disposition home or self-care (01) ==
LOC: HO.MMNH1L 06:44
PROVIDERS: Visit Provider Family Medicine
DX: I50.9 Heart failure, unspecified (principal); I48.20 Chronic atrial fibrillation, unspecified
CPT/HCPCS: 36415; 80053; 85027

== ENCOUNTER 2021-08-02 | Outpatient (REF) | payer OTHER, SELFPAY ==
[2021-08-02 07:27] LABS: Hematocrit 32.4 % (42.0-52.0); Hemoglobin 9.8 g/dl (14.0-18.0); Mean Corpuscular HGB Conc 30.2 g/dl (31.0-36.0); Mean Corpuscular Hemoglobin 25.3 pg (27.0-33.0); Mean Corpuscular Volume 83.5 fL (80.0-98.0); Mean Platelet Volume 9.3 fL (9.4-12.4); Platelet Count 327 X10*3/uL (160-400); Red Blood Count 3.88 X10*6/uL (4.60-5.80); Red Cell Distribution Width 16.6 % (11.0-16.0); White Blood Count 5.7 X10*3/uL (4.8-10.8)
[2021-08-02 08:03] LABS: Anion Gap 14 (12-20); Blood Urea Nitrogen 13 mg/dL (9-16); Calcium 7.9 mg/dL (8.4-10.2); Carbon Dioxide 25 mmol/L (22-29); Chloride 103 mmol/L (96-108); Estimated Glomerular Filt Rate > 60; Glucose Random 95 mg/dL (60-115); Potassium 4.2 mmol/L (3.3-5.1); Sodium 138 mmol/L (135-145)
[2021-08-02 08:38] LABS: Digoxin 0.5 ng/mL (0.8-2.0)
== END 2021-08-02 00:01 | disposition home or self-care (01) ==
LOC: HO.MMNH1L
PROVIDERS: Visit Provider Family Medicine
DX: I50.9 Heart failure, unspecified (principal); Z79.899 Other long term (current) drug therapy
CPT/HCPCS: 36415; 80048; 80162; 85027

== ENCOUNTER → 2021-09-20 09:46 | Outpatient (BNVA) | payer OTHER, SELFPAY | PROVIDERS: PCP Nurse Practitioner Family; Referring Provider Nurse Practitioner Family; Visit Provider Nurse Practitioner Family ==

== ENCOUNTER → 2021-09-29 09:39 | Outpatient (REF) | payer OTHER, SELFPAY ==
--- NOTE | ~2021-09-29 | NM_ITS ---
Myocardial perfusion study Indication: Cardiomyopathy with atrial fibrillation to evaluate for myocardial Technique: The patient was brought in for a Lexiscan perfusion study on 09/29/2021. Patient performed low-level exercise and was injected 0.4 mg of Lexiscan intravenously. Within a minute of injection, 25 mCi of sestamibi was given intravenously. Images were obtained using the SPECT gamma camera interlaced with the gating device. Images were obtained in supine position. Resting perfusion study was performed on 09/30/2021. Patient was administered 25 mCi of sestamibi intravenously at rest. Images were then obtained in supine position. Images obtained with and without CT attenuation. Total DLP 79 mGy-cm. Images were processed with the software and compared side to side in short axis, horizontal long axis and vertical long axis views. Findings: The stress perfusion study showed non attenuated images show absent uptake in the apex as well as moderately reduced uptake in the anterior and inferolateral wall of LV myocardium. Wall of the LV myocardium. Attenuation to inferolateral. Gating study was not performed with stress and atrial fibrillation. LV cavity that is moderately dilated. Resting study shows non attenuated images show severely reduced uptake in the inferior wall of the LV myocardium. Attenuation corrected images show improved uptake in the LAD territory.. Gating at rest reveals diffusely reduced wall motion with ejection fraction at 26%. The findings are consistent with finding suggestive LAD territory ischemia on attenuated corrected images also moderate to severe in the large area. NM/NM amparo perf SPECT rest & str Impression: 1. Myocardial perfusion imaging study shows large area of moderate intensity ischemia in LAD territory 2. Gated LVEF is 26% with stress 3. Transient ischemic dilatation present EKG is nondiagnostic for ischemia
--- NOTE | 2021-09-29 09:44 | CA_ITS ---
Acquisition Time: 2021-09-29 09:49:53 Total Exercise Time: 00:02:00 Test Indications: AFIB Medications: SEE CHART Protocol: LEXISCAN Max HR: 130 BPM 81% of Pred: 159 BPM Max BP: 158/064 mmHG Max Work Load: 1.0 METS Pharmacological stress test with Lexiscan injection, while sitting, without anginal symptoms, with isolated PVCs, with normotensive response to injection, with nondiagnostic EKG for ischemia. In recovery he was treated with Aminphylline 75mg IVP to reverse Lexiscan. Nuclear images pending. Test reviewed with Dr Anderson. Referred By: Elle German Overread By: ELLE GERMAN
== END ==
LOC: HO.CARD 09:39
PROVIDERS: PCP Nurse Practitioner Family; Visit Provider Internal Medicine
DX: I48.91 Unspecified atrial fibrillation (principal); I42.9 Cardiomyopathy, unspecified
CPT/HCPCS: 78452; 93017; A9500; J0280; J2785

== ENCOUNTER → 2021-10-06 09:04 | Outpatient (BNVA) | payer OTHER, SELFPAY | PROVIDERS: PCP Nurse Practitioner Family; Visit Provider Surgery Vascular Surgery ==

== ENCOUNTER 2021-10-27 10:21 | Outpatient (REF) | payer OTHER, SELFPAY ==
--- NOTE | ~2021-10-27 | US_ITS ---
EXAMINATION: COLOR-FLOW DUPLEX IMAGING OF THE BILATERAL LOWER EXTREMITY ARTERIAL SYSTEM. VELOCITY MEASUREMENTS THROUGHOUT THE FEMORAL ARTERIES WITH ANKLE-BRACHIAL PERIPHERAL ARTERIAL TESTING. Interventional Radiologist: John Martin M.D., F.S.I.R., F.A.C.R. CLINICAL INFORMATION: This 60-year-old male with a history of hypertension. Peripheral vascular disease. Claudication. RIGHT FEMORAL RUNOFF VELOCITIES: The right common femoral artery measures 221 cm/s and monophasic. The right profunda femoral artery was in audible and possibly occluded. Right proximal superficial femoral artery measures 24 cm/s and monophasic. Mid superficial femoral artery is 28 cm/s and monophasic. Distal right superficial femoral artery measures 52 cm/s and is monophasic. Right popliteal velocity measures 7 cm/s and is monophasic. The posterior tibial artery velocity measures 12 cm/s and was monophasic. The right ankle-brachial index is 0.54. LEFT FEMORAL RUNOFF VELOCITIES: The left common femoral artery measures 196 cm/s and biphasic. The left profunda femoral artery is 31 cm/s and is monophasic. Left proximal superficial femoral artery was in audible and likely occluded. Mid superficial femoral artery was in audible and likely occluded. Distal left superficial femoral artery was in audible and likely occluded. Left popliteal velocity measures 9 cm/s and is monophasic. The posterior tibial artery velocity measures 7 cm/s and was monophasic. The left ankle brachial index is 0.52. During the duplex portion of the examination there may be an arrhythmia present. This would be best evaluated with an EKG. US/US arterial duplex LE BI IMPRESSION: 1. There are elevated velocities in the common femoral arteries bilaterally. There are then decreased velocities throughout the lower extremities bilaterally. There may be a hemodynamically significant stenosis in the aortoiliac segment bilaterally causing this presentation. There may also be stenoses in the common femoral arteries bilaterally and then decreased flow in both lower extremities. However, there may also be occlusion of the left superficial femoral artery. This may be better evaluated with a CAT scan angiogram.
== END 2021-10-27 10:22 | disposition home or self-care (01) ==
LOC: HO.US 10:21
PROVIDERS: PCP Nurse Practitioner Family; Visit Provider Surgery Vascular Surgery
DX: I73.9 Peripheral vascular disease, unspecified (principal)
CPT/HCPCS: 93923; 93925

== ENCOUNTER → 2021-11-02 13:56 | Outpatient (BNVA) | payer OTHER, SELFPAY | PROVIDERS: PCP Nurse Practitioner Family; Visit Provider Surgery Vascular Surgery ==

== ENCOUNTER → 2021-11-03 09:18 | Outpatient (REF) | payer OTHER, SELFPAY ==
--- NOTE | 2021-11-03 09:23 | CA_ITS ---
Transthoracic Echocardiogram Patient (Last, First, Middle): Brad Gordon R Gender: Male Date of : 1960 Age: 60 Procedure Date: 11/03/2021 Procedure Type: Transthoracic Echocardiogram Location: OP Height: 170.18 cm Weight: 70.31 kg BSA: 1.81 m2 Heart Rate: bpm BP: 125 / 78 mmHg Gunnery/Ordnance Officer: CHRISSY Referring MD: Elle German DIRECTOR OF MANUFACTURING OPERATIONS-C Stave Jointer: Kirill Ramirez MD Symptoms: I42.9 - Cardiomyopathy, unspecified Study Quality: Good ECG Rhythm: Atrial Fibrillation Conclusions: - Severely reduced LV ejection fraction with LVEF of 20-25% Findings Procedure Information Contrast agent, definity, is being given per protocol without apparent complications. Left Ventricle The left ventricular systolic function is severely decreased. The visually estimated ejection fraction is between 20-25%. There is severe global hypokinesis. Diastolic function is indeterminate on the basis of available data. There is no evidence of a thrombus in the left ventricle. Wall Motion Rest Echo Findings The entire apex, anterior wall, anteroseptal wall, entire lateral wall, and mid inferoseptal segment are hypokinetic. The basal inferior, mid inferior, and basal inferoseptal segments are akinetic. Prior Study Comparison Changes noted compared to prior study dated: 05/25/2021. Marginal improvement in LV systolic function. no thrombus noted on this study Measurements 2D Systolic Function EF 4C: 31.20 >55% EF 2C: 15.80 >55% EF BiP: 21.10 >55% Mitral Valve MV Pk E: 0.88 MV PK A: 0.36 MV Decel Time: 180.00 E/A: 2.40 E'Lateral: 9.90 E'Medial: 6.31 E/E' Med: 13.90 E/E' Lat: 8.80 PHT: 53.00 MVA PHT: 4.15 Decel Pope: 4.87 Diastolic Function MV Pk E: 0.88 MV Pk A: 0.36 E/A: 2.40 E'Medial: 6.31 E/E' Med: 13.90 E' Laterial: 9.90 E/E' Lat: 8.80 Updated in Other Vendor System with Status of Final Kirill Ramirez MD electronically signed on 11/04/2021 11:17:12 AM with status of Final
[2021-11-03 10:30] LABS: Blood Urea Nitrogen 13 mg/dL (9-16); Estimated Glomerular Filt Rate > 60
[2021-11-03 10:34] LABS: Alanine Aminotransferase < 6 U/L (0-40); Albumin Level 4.2 g/dL (3.5-5.0); Alkaline Phosphatase 63 U/L (39-117); Anion Gap 11 (12-20); Aspartate Amino Transferase 15 U/L (5-37); Bilirubin Total 0.7 mg/dL (0.0-1.0); Blood Urea Nitrogen 13 mg/dL (9-16); Calcium 9.5 mg/dL (8.4-10.2); Carbon Dioxide 29 mmol/L (22-29); Chloride 103 mmol/L (96-108); Cholesterol 214 mg/dL; Estimated Glomerular Filt Rate > 60; Glucose Fasting 107 mg/dL (60-99); HDL Cholesterol 42 mg/dL; LDL Cholesterol Calculated 152 mg/dl; Potassium 4.3 mmol/L (3.3-5.1); Sodium 139 mmol/L (135-145); Total Protein 7.2 g/dL (6.5-8.0); Triglycerides 104 mg/dL
[2021-11-03 10:46] LABS: Prostate Specific Antigen Scr 1.49 ng/mL (<0.05-4.0); TSH reflex Free T4 3.03 uIU/mL (0.32-4.0)
[2021-11-03 10:47] LABS: Appearance Urine CLEAR; Color Urine YELLOW; Glucose Urine UA NEG (NEG); Leukocyte Esterase Urine NEG (NEG); Nitrite Urine NEG (NEG); Urine Blood NEG (NEG); Urine Ketones NEG (NEG); Urine Protein NEG (NEG-TRACE)
== END ==
LOC: HO.CARD 09:18
PROVIDERS: PCP Nurse Practitioner Family; Visit Provider Nurse Practitioner Family
DX: Z00.00 Encounter for general adult medical examination without abnormal findings (principal); Z12.5 Encounter for screening for malignant neoplasm of prostate; I73.9 Peripheral vascular disease, unspecified; I42.9 Cardiomyopathy, unspecified; I48.91 Unspecified atrial fibrillation
CPT/HCPCS: 36415; 80048; 80053; 80061; 81003; 82565; 84153; 84443; 84520; 93308; Q9957

== ENCOUNTER → 2021-11-09 13:03 | Outpatient (BNVA) | payer OTHER, SELFPAY | PROVIDERS: PCP Nurse Practitioner Family; Referring Provider Nurse Practitioner Family; Visit Provider Nurse Practitioner Family ==

== ENCOUNTER 2021-11-26 08:53 | Outpatient (REF) | payer OTHER, SELFPAY ==
--- NOTE | ~2021-11-26 | CT_ITS ---
EXAMINATION: CTA ABDOMEN, PELVIS AND LOWER EXTREMITY RUNOFF WITH CONTRAST CLINICAL INFORMATION: Peripheral vascular disease. COMPARISON: Lower extremity ultrasound Doppler arterial exam 10/27/2019. TECHNIQUE: Routine abdominal aorta and lower extremity runoff CTA protocol with contrast was performed. 100 mL of Omnipaque 350 was administered. 3-D POSTPROCESSING: Additional 2-D coronal and sagittal reformatted images and axial 3-D maximum intensity projection MIP images are generated on the CT workstation. Images were also evaluated on an independent dedicated 3-D workstation and 3-D images were reconstructed with concurrent radiologist supervision and subsequently interpreted. This CT examination was performed using dose optimization techniques as appropriate, variously including the following: *Automated exposure control. *Adjustment of mA and/or kV according to patient size (this includes techniques or standardized protocols for targeted exams where dose is matched to indication/reason for exam; i.e. extremities or head). *Use of iterative reconstruction technique. DLP: 701 mGy-cm FINDINGS: VASCULAR: ABDOMINAL AORTA: Calcific plaque is present in the abdominal aorta without stenosis. RIGHT LOWER EXTREMITY: - Common Iliac Artery: Calcific atherosclerotic change is present with focal eccentric calcific plaque narrowing the lumen to about 3 mm. - Internal Iliac Artery: Mild origin stenosis, diseased and patent distally. - External Iliac Artery: Free of significant disease. - Common Femoral Artery: Severe atherosclerotic changes present with exuberant calcified plaque and marked stenosis. - Profunda Femoral Artery: Marked proximal disease but patent distally. - Superficial Femoral Artery: Disease throughout with occlusion at the level of the adductor canal. - Popliteal Artery: Severe stenosis at the level of the knee joint. - Posterior Tibial Artery: Proximal disease, widely patent distally. - Peroneal Artery: Proximal disease, small but patent distally. - Anterior Tibial Artery: Proximal disease but widely patent. LEFT LOWER EXTREMITY: - Common Iliac Artery: Calcific plaque but widely patent without stenosis. - Internal Iliac Artery: Patent. - External Iliac Artery: Calcific plaque without stenosis. - Common Femoral Artery: Severe common femoral disease with calcified plaque filling nearly the entire lumen (for example, 10:602). - Profunda Femoral Artery: Stenotic disease proximally. - Superficial Femoral Artery: Occluded. - Popliteal Artery: Reconstitution of the popliteal which has severe disease with calcified plaque filling a large portions of its lumen stenoses. - Posterior Tibial Artery: Proximal disease, patent distally. - Peroneal Artery: Proximal disease, patent distally. - Anterior Tibial Artery: Proximal disease, patent distal. CELIOMESENTERIC ARTERIES: Celiac, SMA and JUSTYN are all patent. RENAL ARTERIES: Single renal arteries present bilaterally with some mild ostial disease. NONVASCULAR: Lung Bases: The visualized lung bases are unremarkable. Liver, Gallbladder and Biliary Tree: The liver is normal in size, shape, and attenuation. No focal hepatic lesion or biliary ductal dilatation is present. The gallbladder is unremarkable with no evidence of radiopaque gallstones, gallbladder wall thickening, or obvious pericholecystic inflammatory changes. Pancreas: Unremarkable. Spleen: Unremarkable. Adrenal Glands: Unremarkable. Kidneys and Ureters: The kidneys are normal in size, shape, and attenuation. No hydronephrosis, hydroureter, or calculi seen. No perinephric stranding. Bladder: Unremarkable. Gastrointestinal Tract: The small and large bowel are unremarkable. The appendix is unremarkable. Abdominal Wall: No significant hernia is appreciated. Lymph Nodes: Normal. Pelvic Viscera: A large left-sided hydrocele is present. Left-sided testis is not seen with certainty. Recommend correlation with physical exam to exclude a testicular mass. The right testis is high-riding in the distal inguinal canal. There is mild BPH with calcifications. Seminal vesicles unremarkable. Osseous Structures: Mild degenerative changes present in the spine. Schmorl's node present on the superior endplate of L4. CT/CT angio abd aorta runoff IMPRESSION: 1. No significant aortic inflow disease. 2. On the right, there is a common iliac stenosis and internal iliac disease with marked disease in the common femoral artery and SFA with occlusion in its mid portion and proximal trifurcation disease but all 3 runoff vessels are patent distally. 3. On the left, no significant iliac inflow disease. Marked common femoral disease with stenotic profunda femoris and occluded SFA with reconstituted diseased popliteal and three-vessel runoff with all 3 vessels with some proximal disease. 4. Nonvascular findings show probable left hydrocele. Correlation with physical exam is recommended to exclude a left testicular mass. The right testis is in the inguinal canal.
[2021-11-26] MEDS: iohexoL 350 MG/ML 100 ML INFUS..BTL IV (10:20)
== END 2021-11-26 08:54 | disposition home or self-care (01) ==
LOC: HO.CT 08:53
PROVIDERS: PCP Nurse Practitioner Family; Visit Provider Surgery Vascular Surgery
DX: I73.9 Peripheral vascular disease, unspecified (principal)
CPT/HCPCS: 75635; Q9967

== ENCOUNTER → 2021-11-30 13:52 | Outpatient (BNVA) | payer OTHER, SELFPAY | PROVIDERS: PCP Nurse Practitioner Family; Visit Provider Surgery Vascular Surgery | DX: I73.9 Peripheral vascular disease, unspecified (principal); F17.210 Nicotine dependence, cigarettes, uncomplicated; Z79.01 Long term (current) use of anticoagulants; Z72.89 Other problems related to lifestyle | CPT/HCPCS: 99212 ==

== ENCOUNTER 2021-12-06 12:44 | Outpatient (REF) | payer OTHER, SELFPAY ==
--- NOTE | ~2021-12-06 | US_ITS ---
EXAMINATION: US SCROTUM CLINICAL INFORMATION: Enlargement of scrotal sac. COMPARISON: None. TECHNIQUE: A sonogram of the scrotum was performed assessing salcedo-scale appearance and color Doppler flow. Spectral Doppler analysis of the arterial and venous flow were performed in the testes bilaterally. FINDINGS: RIGHT: Right testicle measures 3.4 x 1.4 x 2.3 cm, volume 5.7 mL. No focal testicular parenchymal lesions are visualized. Spectral Doppler analysis of the arterial and venous flow is normal in the right testis. Right epididymal head is normal in size. There is anechoic right epididymal cyst measuring 0.3 x 0.2 x 0.3 cm. No right varicocele is seen. There is moderate-sized right hydrocele. Right epididymal Doppler flow is normal. LEFT: Left testicle measures 3.8 x 2.3 x 2.5 cm, volume 11.4 mL. No focal testicular parenchymal lesions are visualized. Spectral Doppler analysis of the arterial and venous flow is normal in the left testis. Left epididymal head is normal in size. No left varicocele is seen. There is a large moderate-sized hydrocele with a large septation, appearing almost like an epididymal cyst. Left epididymal Doppler flow is normal. US/US scrotum IMPRESSION: Bilateral hydroceles, larger on the left with septation. Normal testes with normal vascular flow. Right epididymal cyst. Otherwise both epididymides are unremarkable.
[2021-12-06 14:31] LABS: MANUAL DIFF FLAG NO
[2021-12-06 14:46] LABS: Basophils Percent Auto 0.8 % (0-2); Eosinophils Absolute Auto 0.1 X10*3/uL (0.0-0.4); Eosinophils Percent Auto 1.2 % (0-4); Hematocrit 35.8 % (42.0-52.0); Imm Gran Abs Auto 0.01 X10*3/uL (0.00-0.03); Imm Gran Pct Auto 0.2 % (0.0-0.4); Lymphocytes Absolute Auto 1.1 X10*3/uL (1.2-4.9); Lymphocytes Percent Auto 22.4 % (20-40); Mean Corpuscular HGB Conc 30.7 g/dl (31.0-36.0); Mean Corpuscular Hemoglobin 24.1 pg (27.0-33.0); Mean Corpuscular Volume 78.5 fL (80.0-98.0); Mean Platelet Volume 8.4 fL (9.4-12.4); Monocytes Absolute Auto 0.7 X10*3/uL (0.1-1.2); Monocytes Percent Auto 13.7 % (2-11); Neutrophils Absolute Auto 3.1 x10*3/uL (2.0-8.3); Neutrophils Percent Auto 61.7 % (45-73); Platelet Count 235 X10*3/uL (160-400); Red Blood Count 4.56 X10*6/uL (4.60-5.80); Red Cell Distribution Width 20.2 % (11.0-16.0)
[2021-12-06 14:53] LABS: INTERNATIONAL NORM RATIO 1.5 (0.9-1.1); Prothrombin Time 17.4 SEC (9.9-13.0)
[2021-12-06 15:19] LABS: Anion Gap 13 (12-20); Blood Urea Nitrogen 14 mg/dL (9-16); Calcium 9.5 mg/dL (8.4-10.2); Carbon Dioxide 27 mmol/L (22-29); Chloride 102 mmol/L (96-108); Estimated Glomerular Filt Rate > 60; Glucose Random 76 mg/dL (60-115); Potassium 4.2 mmol/L (3.3-5.1); Sodium 138 mmol/L (135-145)
== END 2021-12-06 12:45 | disposition home or self-care (01) ==
LOC: HO.US 12:44
PROVIDERS: Absent Provider Nurse Practitioner Family; PCP Nurse Practitioner Family; Visit Provider Nurse Practitioner Family
DX: N50.89 Other specified disorders of the male genital organs (principal)
CPT/HCPCS: 36415; 76870; 80048; 85025; 85610

== ENCOUNTER → 2022-01-11 13:57 | Outpatient (BNVA) | payer OTHER, SELFPAY | PROVIDERS: PCP Nurse Practitioner Family; Referring Provider Nurse Practitioner Family; Visit Provider Nurse Practitioner Family | DX: Z13.89 Encounter for screening for other disorder (principal) ==

== ENCOUNTER 2022-03-21 23:06 | Emergency (ER) | payer OTHER, SELFPAY ==
[2022-03-21 23:18] VITALS: BP 138/69; PULSE 59; RESP 17; TEMP 36.4; O2SAT 99; BMI 23.5
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
[2022-03-22] MEDS: Diphth,Pertus(ACell),Tet Adult 0.5 ML SYRINGE IM (00:12)
[2022-03-22] MEDS: cephALEXin 500 MG CAPSULE PO (00:12)
[2022-03-22] MEDS: oxyCODONE HCl Immed Release 5 MG TABLET 10 MG PO (00:38)
== END 2022-03-22 00:55 | disposition home or self-care (01) ==
PROVIDERS: Emergency Provider Internal Medicine; PCP Nurse Practitioner Family
DX: T23.251A Burn of second degree of right palm, initial encounter (principal); T24.231A Burn of second degree of right lower leg, initial encounter; S80.212A Abrasion, left knee, initial encounter; W34.19XA Accidental malfunction from other specified firearms, initial encounter; F17.200 Nicotine dependence, unspecified, uncomplicated; F12.90 Cannabis use, unspecified, uncomplicated; Y93.9 Activity, unspecified; Y92.410 Unspecified street and highway as the place of occurrence of the external cause; Y99.9 Unspecified external cause status
CPT/HCPCS: 16030; 90471; 90715; 99284

== ENCOUNTER 2022-03-24 11:38 | Emergency (ER) | payer MEDICAID, SELFPAY ==
[2022-03-24 12:12] VITALS: BP 152/64; PULSE 66; RESP 18; TEMP 36.2; O2SAT 97; BMI 23.5
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
== END 2022-03-24 14:47 | disposition home or self-care (01) ==
PROVIDERS: Emergency Provider Emergency Medicine; PCP Nurse Practitioner Family
DX: T23.201A Burn of second degree of right hand, unspecified site, initial encounter (principal); T24.201A Burn of second degree of unspecified site of right lower limb, except ankle and foot, initial encounter; T31.0 Burns involving less than 10% of body surface; R06.02 Shortness of breath; X08.8XXA Exposure to other specified smoke, fire and flames, initial encounter; Y93.9 Activity, unspecified; Y92.9 Unspecified place or not applicable; Y99.9 Unspecified external cause status; Z79.899 Other long term (current) drug therapy; F17.210 Nicotine dependence, cigarettes, uncomplicated; Z71.6 Tobacco abuse counseling
CPT/HCPCS: 93005; 99283

== ENCOUNTER 2022-04-04 03:34 | Emergency (ER) | payer OTHER, SELFPAY ==
[2022-04-04 03:42] VITALS: BP 128/65; PULSE 83; RESP 20; TEMP 36.8; O2SAT 97; BMI 23.5
[2022-04-04 04:00] LABS: MANUAL DIFF FLAG NO
[2022-04-04 04:01] LABS: Basophils Percent Auto 0.4 % (0-2); Eosinophils Absolute Auto 0.1 X10*3/uL (0.0-0.4); Eosinophils Percent Auto 1.4 % (0-4); Hematocrit 35.6 % (42.0-52.0); Hemoglobin 11.6 g/dl (14.0-18.0); Imm Gran Abs Auto 0.04 X10*3/uL (0.00-0.03); Imm Gran Pct Auto 0.5 % (0.0-0.4); Lymphocytes Absolute Auto 1.4 X10*3/uL (1.2-4.9); Lymphocytes Percent Auto 16.8 % (20-40); Mean Corpuscular HGB Conc 32.6 g/dl (31.0-36.0); Mean Corpuscular Hemoglobin 25.2 pg (27.0-33.0); Mean Corpuscular Volume 77.4 fL (80.0-98.0); Mean Platelet Volume 8.5 fL (9.4-12.4); Monocytes Absolute Auto 0.8 X10*3/uL (0.1-1.2); Monocytes Percent Auto 10.4 % (2-11); Neutrophils Absolute Auto 5.7 x10*3/uL (2.0-8.3); Neutrophils Percent Auto 70.5 % (45-73); Platelet Count 211 X10*3/uL (160-400); White Blood Count 8.1 X10*3/uL (4.8-10.8)
[2022-04-04 04:13] LABS: COVID-19 Test Negative (Negative)
[2022-04-04 04:15] LABS: Lactic Acid 1.7 mmol/L (0.5-2.0)
[2022-04-04 04:22] LABS: Alanine Aminotransferase < 6 U/L (0-40); Albumin Level 3.6 g/dL (3.5-5.0); Alkaline Phosphatase 81 U/L (39-117); Anion Gap 15 (12-20); Aspartate Amino Transferase 22 U/L (5-37); Bilirubin Total < 0.2 mg/dL (0.0-1.0); Blood Urea Nitrogen 24 mg/dL (9-16); Calcium 8.3 mg/dL (8.4-10.2); Carbon Dioxide 26 mmol/L (22-29); Chloride 99 mmol/L (96-108); Creatinine Clr Calc Pharmacy 83.2; Estimated Glomerular Filt Rate > 60; Glucose Random 108 mg/dL (60-115); Potassium 4.3 mmol/L (3.3-5.1); Sodium 136 mmol/L (135-145); Total Protein 6.5 g/dL (6.5-8.0)
[2022-04-04 05:03] LABS: Ethanol 87 mg/dL
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
[2022-04-04 05:14] LABS: B Type Natriuretic Peptide 73 pg/mL (<100)
[2022-04-04 06:06] VITALS: BP 143/68; PULSE 85; RESP 17; TEMP 36.7; O2SAT 99
[2022-04-04] MEDS: oxyCODONE HCl Immed Release 5 MG TABLET PO (07:39)
== END 2022-04-04 09:08 | disposition home or self-care (01) ==
PROVIDERS: Emergency Provider Student in an Organized Health Care Education/Training Program; PCP Nurse Practitioner Family
DX: R60.0 Localized edema (principal); R06.02 Shortness of breath; F17.210 Nicotine dependence, cigarettes, uncomplicated; Z71.6 Tobacco abuse counseling; Z20.822 Contact with and (suspected) exposure to COVID-19; Z79.899 Other long term (current) drug therapy
CPT/HCPCS: 80053; 82077; 82550; 83605; 83880; 85025; 87040; 87635; 99283; 99284

== ENCOUNTER 2022-04-15 13:49 | Outpatient (RCR) | payer OTHER, MEDICAID, SELFPAY | END 2022-05-02 14:02 | disposition home or self-care (01) | LOC: HO.WCC 13:49 | PROVIDERS: PCP Nurse Practitioner Family; Visit Provider Physician Assistant | DX: T24.231A Burn of second degree of right lower leg, initial encounter (principal); T24.331A Burn of third degree of right lower leg, initial encounter; T23.291A Burn of second degree of multiple sites of right wrist and hand, initial encounter; I25.84 Coronary atherosclerosis due to calcified coronary lesion; I73.9 Peripheral vascular disease, unspecified | CPT/HCPCS: 16030; 99213 ==

== ENCOUNTER 2022-06-03 13:56 | Outpatient (RCR) | payer OTHER, MEDICAID, SELFPAY | END 2022-07-14 13:56 | disposition home or self-care (01) | LOC: HO.WCC 13:56 | PROVIDERS: PCP Nurse Practitioner Family; Visit Provider Physician Assistant | DX: T24.201A Burn of second degree of unspecified site of right lower limb, except ankle and foot, initial encounter (principal); I73.9 Peripheral vascular disease, unspecified; I25.84 Coronary atherosclerosis due to calcified coronary lesion; F17.210 Nicotine dependence, cigarettes, uncomplicated | CPT/HCPCS: 16030; 99213 ==

== ENCOUNTER 2022-06-11 14:45 | Inpatient (IN) | payer OTHER, MEDICAID, SELFPAY ==
--- NOTE | ~2022-06-11 | XR_ITS ---
EXAMINATION: XR CHEST CLINICAL INFORMATION: Low blood pressure COMPARISON: Previous chest x-ray most recent July 2021 TECHNIQUE: 2 views of the chest were obtained. FINDINGS: The cardiac and mediastinal contours are normal. The lungs are clear. There is no pleural effusion or pneumothorax. There are old rib fractures. XR/XR chest 2V IMPRESSION: No evidence for acute disease in the chest.
[2022-06-11 14:54] VITALS: BP 110/57; BP 96/59; PULSE 69; PULSE 84; RESP 10; TEMP 36.5; O2SAT 96; O2SAT 977; BMI 23.6
--- NOTE | 2022-06-11 15:04 | ECG_ITS ---
Test Reason : GENERAL MEDICAL Blood Pressure : / mmHG Vent. Rate : 104 BPM Atrial Rate : 000 BPM P-R Int : 000 ms QRS Dur : 146 ms QT Int : 374 ms P-R-T Axes : 000 065 070 degrees QTc Int : 491 ms Atrial fibrillation with rapid ventricular response with premature ventricular or aberrantly conducted complexes Right bundle branch block Possible Inferior infarct (cited on or before 24-JUL-2021) Abnormal ECG When compared with ECG of 24-JUL-2021 15:39, T wave inversion more evident in Anterior leads T wave inversion no longer evident in Lateral leads Referred By: Marika Mcnulty Electronically Signed By:CHRIS ALEJANDRO
[2022-06-11 16:00] VITALS: BP 126/72; PULSE 93; RESP 12; TEMP 36; O2SAT 96
[2022-06-11 16:00] LABS: MANUAL DIFF FLAG NO
[2022-06-11 16:02] LABS: Basophils Percent Auto 0.4 % (0-2); Eosinophils Absolute Auto 0.1 X10*3/uL (0.0-0.4); Eosinophils Percent Auto 1.4 % (0-4); Hematocrit 36.6 % (42.0-52.0); Hemoglobin 12.1 g/dl (14.0-18.0); Imm Gran Abs Auto 0.04 X10*3/uL (0.00-0.03); Imm Gran Pct Auto 0.6 % (0.0-0.4); Lymphocytes Absolute Auto 1.3 X10*3/uL (1.2-4.9); Lymphocytes Percent Auto 18.3 % (20-40); Mean Corpuscular HGB Conc 33.1 g/dl (31.0-36.0); Mean Corpuscular Hemoglobin 29.4 pg (27.0-33.0); Mean Corpuscular Volume 88.8 fL (80.0-98.0); Mean Platelet Volume 7.9 fL (9.4-12.4); Monocytes Absolute Auto 0.6 X10*3/uL (0.1-1.2); Monocytes Percent Auto 8.9 % (2-11); Neutrophils Absolute Auto 5.1 x10*3/uL (2.0-8.3); Neutrophils Percent Auto 70.4 % (45-73); Platelet Count 358 X10*3/uL (160-400); Red Blood Count 4.12 X10*6/uL (4.60-5.80); Red Cell Distribution Width 18.6 % (11.0-16.0); White Blood Count 7.2 X10*3/uL (4.8-10.8)
[2022-06-11 16:07] LABS: Prothrombin Time 11.5 SEC (10.0-13.1)
[2022-06-11] MEDS: 0.9 % Sodium Chloride 1,000 ML 999 ML IVCONT (16:08)
[2022-06-11 16:16] LABS: Ethanol 192 mg/dL
[2022-06-11 16:19] LABS: Appearance Urine Clear; Color Urine Yellow; Glucose Urine UA Negative (Negative); Leukocyte Esterase Urine Negative (Negative); Nitrite Urine Negative (Negative); Urine Blood Negative (Negative); Urine Ketones Negative (Negative); Urine Protein Negative (Neg-Trace)
--- NOTE | 2022-06-11 16:20 | PC.NURSE ---
pt a&ox3, vss, campus monitor applied, chronic afib, NaCl running, urine sample obtained. tech at bedside for EKG. no new orders at this time.
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
[2022-06-11 16:25] LABS: Troponin-I High Sensitivity 6.5 ng/L (<3.5-35.0)
[2022-06-11 16:41] LABS: Alanine Aminotransferase 7 U/L (0-40); Albumin Level 3.8 g/dL (3.5-5.0); Alkaline Phosphatase 74 U/L (39-117); Anion Gap 19 (12-20); Aspartate Amino Transferase 16 U/L (5-37); Bilirubin Total 0.2 mg/dL (0.0-1.0); Blood Urea Nitrogen 18 mg/dL (9-16); Carbon Dioxide 23 mmol/L (22-29); Chloride 92 mmol/L (96-108); Creatinine Clr Calc Pharmacy 73.8; Estimated Glomerular Filt Rate > 60; Glucose Random 99 mg/dL (60-115); Magnesium 1.1 mg/dL (1.6-2.6); Potassium 3.9 mmol/L (3.3-5.1); Sodium 130 mmol/L (135-145); Total Protein 6.7 g/dL (6.5-8.0)
[2022-06-11 17:32] VITALS: BP 125/69; PULSE 93; RESP 13; O2SAT 97
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
--- NOTE | 2022-06-11 17:43 | PHA.MEDREC ---
Pharmacy Consult ? Medication Reconciliation Pharmacy has completed the medication reconciliation. Patient had list from [facility] and list from portal
[2022-06-11] MEDS: Magnesium Sulfate/H2O 2 GM/50 ML PIGGYBACK IV (18:02)
[2022-06-11] MEDS: oxyCODONE HCl Immed Release 5 MG TABLET PO (18:02)
[2022-06-11] MEDS: Nicotine 14 MG PATCH.TD24 TRANSDERMA (18:11)
[2022-06-11] MEDS: PHENobarbitaL 200 MG, PHENobarbitaL 60 MG 260 MG PO (18:12)
--- NOTE | 2022-06-11 18:19 | PC.NURSE ---
pt a&ox3, afib w rate in high 90s-low 100s, other vss, medicated per provider order, pt initially declined medications due to not wanting to be admitted, but pt changed his mind and agreed to admission.
--- NOTE | 2022-06-11 18:23 | PC.NURSE ---
kitchen notified RE: pm cardiac diet.
[2022-06-11 18:39] LABS: Troponin-I High Sensitivity 7.5 ng/L (<3.5-35.0)
[2022-06-11 18:52] LABS: COVID-19 Test Negative (Negative)
[2022-06-11 22:07] VITALS: BP 141/89; PULSE 95; RESP 15; O2SAT 99
[2022-06-11] MEDS: carvediloL 12.5 MG TABLET PO (22:37)
[2022-06-11] MEDS: Apixaban 5 MG TABLET PO (22:37)
[2022-06-11] MEDS: Sacubitril/Valsartan 49/51 1 TAB TABLET PO (22:37)
[2022-06-11] MEDS: Atorvastatin Calcium 40 MG TABLET PO (22:37)
[2022-06-11] MEDS: PHENobarbitaL 200 MG PO ONCE PO (22:47)
[2022-06-11] MEDS: traZODone HCL 50 MG TABLET PO (22:47)
[2022-06-12 01:14] VITALS: BP 128/89; PULSE 96; RESP 16; TEMP 36.7; O2SAT 97
[2022-06-12] MEDS: Acetaminophen 325 MG TABLET 650 MG PO (02:08)
[2022-06-12] MEDS: PHENobarbitaL 200 MG PO ONCE PO (02:08)
--- NOTE | 2022-06-12 02:12 | PC.NURSE ---
pt a&ox3, vss, medicated per provider order, pt reporting 9/10 pain.
[2022-06-12 05:22] LABS: Hematocrit 30.7 % (42.0-52.0); Hemoglobin 10.3 g/dl (14.0-18.0); Mean Corpuscular HGB Conc 33.6 g/dl (31.0-36.0); Mean Corpuscular Hemoglobin 29.8 pg (27.0-33.0); Mean Corpuscular Volume 88.7 fL (80.0-98.0); Mean Platelet Volume 8.5 fL (9.4-12.4); Platelet Count 346 X10*3/uL (160-400); Red Blood Count 3.46 X10*6/uL (4.60-5.80); Red Cell Distribution Width 18.4 % (11.0-16.0); White Blood Count 8.2 X10*3/uL (4.8-10.8)
[2022-06-12 06:46] LABS: Anion Gap 15 (12-20); Blood Urea Nitrogen 11 mg/dL (9-16); Calcium 8.1 mg/dL (8.4-10.2); Carbon Dioxide 25 mmol/L (22-29); Chloride 98 mmol/L (96-108); Creatinine Clr Calc Pharmacy 115.4; Estimated Glomerular Filt Rate > 60; Glucose Random 88 mg/dL (60-115); Magnesium 1.4 mg/dL (1.6-2.6); Sodium 134 mmol/L (135-145)
[2022-06-12] MEDS: PHENobarbitaL 15 MG TABLET 45 MG PO (09:44)
[2022-06-12] MEDS: carvediloL 12.5 MG TABLET PO (09:45)
[2022-06-12] MEDS: Digoxin 0.125 MG TABLET PO (09:45)
[2022-06-12] MEDS: Furosemide 20 MG TABLET PO (09:48)
[2022-06-12] MEDS: Folic Acid 1 MG TABLET PO (09:48)
[2022-06-12] MEDS: Apixaban 5 MG TABLET PO (09:48)
[2022-06-12 10:00] VITALS: BP 154/96; PULSE 88; RESP 16; O2SAT 96
[2022-06-12] MEDS: Magnesium Sulfate/H2O 2 GM/50 ML PIGGYBACK IV ×2 (10:06→11:25)
[2022-06-12] MEDS: 0.9 % Sodium Chloride Flush 3 ML SYRINGE IVFLUSH (10:09)
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
[2022-06-12] MEDS: Sacubitril/Valsartan 49/51 1 TAB TABLET PO (10:31)
--- NOTE | 2022-06-12 10:33 | PC.NURSE ---
Pt A&Ox3, resting quietly, denies pain. States that the bacitracin ointment was DC by PCP.
[2022-06-12 13:12] VITALS: BP 149/92; PULSE 76; RESP 24; TEMP 36.8; O2SAT 100
--- NOTE | 2022-06-12 14:51 | PC.NURSE ---
Pt refused to get V/S and assess by the RN. Pt wants to sign a AMA. RN contacted the hospitalist Dr. collins was notified. will continue to monitor.
--- NOTE | 2022-06-12 15:04 | PC.NURSE ---
pt has been refusing care, refusing to allow vitals, pt insisting on discharging to home, hospitalist was notified, PA came to overflow to speak with the patient to encourage patient to stay, pt refused and will be discharging AMA.
--- NOTE | 2022-06-12 15:41 | PM.EVENT ---
Documented by User: BRANDEN Prescott 06/12/22 15:51 Event Note Date of Service: 06/12/22 Event Note: Pt informed nursing that he wishes to leave the hospital because he does not wish to be here any longer. I have seen the patient and discussed with him the risks of leading AMA as he is at risk for alcohol withdrawal and has hypomagnesemia including risk of muscle spasm, tremor, AMS, arrhythmia, seizure, or even . Pt is alert and oriented x3, expresses understanding of risk and still wishes to leave. Patient informed in presence of RNMaisha. AMA form signed. Pt advised to return to the ED for any worsening symptoms. Magnesium rx sent to pharmacy. Documented by User: Finn Shields MD 06/13/22 07:20 Event Note Date of Service: 06/13/22
--- NOTE | 2022-06-12 15:59 | PC.NURSE ---
spoke with matthew bhat about putting in the patients ama discharge, pt signed ama form with matthew and overflow staff. per Dr matthew, [facility] will do the actual inpt discharge later despite the patient leaving now. will notify the charge and discharge from the ed side as there is information needing to be filled out by the physician to discharge from the inpt side.
--- NOTE | 2022-06-12 16:22 | PM.DS ---
DS: Providers Provider Date of Service: 06/12/22 Date of admission: 06/11/22 17:32 Primary care physician: ALLI Dunn DS: Diagnosis Discharge Diagnosis (1) Alcohol dependence: Status: Acute (2) Low blood magnesium level: Status: Acute DS: Summary Hospital Course Hospital Course: Patient was admitted for issues related to alcohol withdrawal, hypomagnesemia. While being hydrated, replacing magnesium and treating aldohol withdrawal, he elected to leave AMA and was apropriately counceled, see note elsewhere. Final diagnosis: alcohol withdrawal hypomagnesemia related to alcohol use AFIB HTN Chronic systolic heart failure HLD Time Spent with Patient Time attestation: Total time spent providing and/or coordinating discharge services: Discharge coordination time: Greater than 30 minutes Quality: Safe Use of Opioids Does Pt have an Active Cancer Diagnosis on the Problem List?: No Quality: Stroke Does the patient have a stroke diagnosis?: No Physical Exam Vital Signs: Vital Signs: Last Vital Signs Temp 98.3 F 06/12/22 13:12 Pulse 76 06/12/22 13:12 Resp 24 H 06/12/22 13:12 BP 149/92 H 06/12/22 13:12 Pulse Ox 100 06/12/22 13:12 O2 Del Method 06/12/22 13:12 BMI result Body Mass Index 23.6 DS: Data Data Completed and Pending Completed studies during hospitalization [Text1]: Procedures Detoxification Services for Substance Abuse Treatment (07/24/21) Insertion of Monitoring Device into Right Pulmonary Artery, Percutaneous Approach (07/24/21) Discharge Plan Discharge Anticipated Discharge Date/Time: 06/12/22 07:20 Patient Disposition: Left Against Medical Advice Discharge Diagnosis: Alcohol withdrawal, hypomagnesemia Referrals: Antonino Ramsey FNP-BC [Primary Care Provider] - 1 Week Discharge Medications: New magnesium oxide 400 mg (241.3 mg magnesium) tablet 400 mg PO DAILY Qty: 30 0RF Continued Eliquis 5 mg tablet 5 mg PO BID Qty: 180 3RF trazodone 50 mg tablet 50 mg PO BEDTIME PRN (Reason: sleep) 30 Days Qty: 30 3RF omeprazole 40 mg capsule,delayed release(DR/EC) 40 mg PO DAILY@0630 90 Days Qty: 90 0RF folic acid 1 mg tablet 1 mg PO DAILY 90 Days Qty: 90 0RF furosemide 20 mg tablet 20 mg PO DAILY Qty: 90 0RF digoxin 125 mcg (0.125 mg) tablet 125 mcg PO DAILY Qty: 90 0RF bacitracin 500 unit/gram ointment 1 appl topical TID Qty: 28 1RF Rx Instructions: Apply to the affected area 3 times a day. tramadol 50 mg tablet 50 mg PO TID PRN (Reason: pain) Qty: 14 0RF carvedilol [Coreg] 12.5 mg tablet 12.5 mg PO BID Qty: 60 4RF Rx Instructions: must administer with a meal/food Entresto 49-51 mg tablet 1 tab PO BID Qty: 60 3RF atorvastatin 40 mg tablet 40 mg PO BEDTIME Qty: 30 5RF Rx Instructions: Cholesterol lowering medication Discharge Orders: Discharge Order (Routine); Ordered 06/13/22 [facility] Goals: left ama Health Concerns: left ama Plan of Treatment: left ama Assessment: left ama
== END 2022-06-13 09:44 | disposition left against medical advice (07) | DRG 425 ==
LOC: HO.ED 17:01 → HO.EDOVER 17:37 → HO.IMC 06-13 07:22
PROVIDERS: Physician Assistant; Physician Assistant Medical; Admitting Provider Physician Assistant Medical; Emergency Provider Emergency Medicine; PCP Nurse Practitioner Family; Visit Provider Internal Medicine
DX: E83.42 Hypomagnesemia (principal); I11.0 Hypertensive heart disease with heart failure; I48.19 Other persistent atrial fibrillation; I50.22 Chronic systolic (congestive) heart failure; I25.10 Atherosclerotic heart disease of native coronary artery without angina pectoris; F10.239 Alcohol dependence with withdrawal, unspecified; F10.220 Alcohol dependence with intoxication, uncomplicated; E78.5 Hyperlipidemia, unspecified; Y90.6 Blood alcohol level of 120-199 mg/100 ml; F17.210 Nicotine dependence, cigarettes, uncomplicated; Z20.822 Contact with and (suspected) exposure to COVID-19; Z71.6 Tobacco abuse counseling; Z79.01 Long term (current) use of anticoagulants; Z79.899 Other long term (current) drug therapy
CPT/HCPCS: 36415; 71046; 80048; 80053; 81003; 82077; 83735; 84484; 85025; 85027; 85610; 87635; 93005; 96360; 99285; J3475

== ENCOUNTER 2022-08-03 10:52 | Outpatient (RCR) | payer OTHER, MEDICAID, SELFPAY | END 2022-09-16 12:00 | disposition home or self-care (01) | LOC: HO.WCC 10:52 | PROVIDERS: PCP Nurse Practitioner Family; Visit Provider Surgery | DX: T24.201A Burn of second degree of unspecified site of right lower limb, except ankle and foot, initial encounter (principal); T25.211A Burn of second degree of right ankle, initial encounter; T24.002A Burn of unspecified degree of unspecified site of left lower limb, except ankle and foot, initial encounter; S91.301A Unspecified open wound, right foot, initial encounter; S91.002A Unspecified open wound, left ankle, initial encounter; F17.210 Nicotine dependence, cigarettes, uncomplicated; M24.561 Contracture, right knee; T32.0 Corrosions involving less than 10% of body surface | CPT/HCPCS: 11042; 11045; 16020; 16025; 16030 ==

== ENCOUNTER 2022-09-10 23:33 | Inpatient (IN) | payer OTHER, MEDICAID, SELFPAY ==
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
--- NOTE | ~2022-09-10 | CT_ITS ---
EXAMINATION: CT RIGHT TIBIA AND FIBULA CT LEFT TIBIA AND FIBULA CLINICAL INFORMATION: Chronic bones with cellulitis. Rule out osteomyelitis. COMPARISON: X-ray 09/13/2022 TECHNIQUE: Axial imaging. 85 mL Omnipaque. Sagittal and coronal reconstructions. FINDINGS: RIGHT TIBIA AND FIBULA: The extremity is imaged in atypical positioning. There is flexion at the knee joint, with resulting posterior angulation of the tibia and fibula, with axial imaging obtained in an atypical oblique orientation through the tibia and fibula. This limits evaluation.. There is soft tissue irregularity/ulceration about the lateral aspect of the ankle adjacent to the distal fibula. As seen on the radiograph, there is bone demineralization of the distal fibula, with question of subtle cortical irregularity of the lateral/inferior aspect of the lateral malleolus.. Osteomyelitis in this region cannot be excluded. There are multiple areas of apparent skin irregularity/ulceration extensively in the tibia and fibula. There is a subcutaneous hazy density in the tibia and fibula, which could reflect edema or cellulitis. No loculated or drainable fluid collections identified. No obvious fluid collections is identified in the muscles or significant interfascial fluid is evident in the tibia/fibula. No additional areas of definite cortical irregularity, erosive or destructive changes identified in the tibia-fibula. No acute findings evident in the remainder of the partially imaged bones. No significant knee joint effusion is seen. Limited evaluation of tendons. There appears to be irregularity of the posterior aspect of the proximal Achilles tendon, image [id number], which may reflect partial tearing. LEFT TIBIA AND FIBULA: The extremity is imaged in atypical positioning. There is flexion at the knee joint, with resulting posterior angulation of the tibia and fibula, with axial imaging obtained in an atypical oblique orientation through the tibia and fibula. This limits evaluation.. There is soft tissue irregularity along the anterior distal third of the tibia.There is subcutaneous edema/cellulitis in the tibia and fibula. No loculated or drainable fluid collections identified. No evidence of fluid collections identified within the muscles or significant gross fluid identified in the interfascial planes of the tibia-fibula. No bony erosive or destructive changes identified in the tibia or fibula. No significant knee joint effusion is seen. There is limited evaluation of the tendons. The Achilles tendon grossly appears intact. CT/CT lower leg LT w IV con IMPRESSION: Atypical positioning of the lower extremities with associated limitation. Evaluation. RIGHT TIBIA AND FIBULA: 1. As seen on the prior radiograph, is bony demineralization with possible bony erosive changes in the lateral malleolus. Osteomyelitis cannot be excluded. MRI is more sensitive and specific, and MRI evaluation may be helpful. 2. Multifocal areas of soft tissue irregularity/ulceration in the tibia-fibula. 3. Subcutaneous edema/cellulitis. No loculated fluid collection seen. 4. Question posterior aspect partial tearing of the proximal Achilles tendon. LEFT TIBIA AND FIBULA: No CT evidence of definite osteomyelitis. MRI is more sensitive and specific, and and can be obtained as clinically warranted.
--- NOTE | ~2022-09-10 | CT_ITS ---
EXAMINATION: CT RIGHT TIBIA AND FIBULA CT LEFT TIBIA AND FIBULA CLINICAL INFORMATION: Chronic bones with cellulitis. Rule out osteomyelitis. COMPARISON: X-ray 09/13/2022 TECHNIQUE: Axial imaging. 85 mL Omnipaque. Sagittal and coronal reconstructions. FINDINGS: RIGHT TIBIA AND FIBULA: The extremity is imaged in atypical positioning. There is flexion at the knee joint, with resulting posterior angulation of the tibia and fibula, with axial imaging obtained in an atypical oblique orientation through the tibia and fibula. This limits evaluation.. There is soft tissue irregularity/ulceration about the lateral aspect of the ankle adjacent to the distal fibula. As seen on the radiograph, there is bone demineralization of the distal fibula, with question of subtle cortical irregularity of the lateral/inferior aspect of the lateral malleolus.. Osteomyelitis in this region cannot be excluded. There are multiple areas of apparent skin irregularity/ulceration extensively in the tibia and fibula. There is a subcutaneous hazy density in the tibia and fibula, which could reflect edema or cellulitis. No loculated or drainable fluid collections identified. No obvious fluid collections is identified in the muscles or significant interfascial fluid is evident in the tibia/fibula. No additional areas of definite cortical irregularity, erosive or destructive changes identified in the tibia-fibula. No acute findings evident in the remainder of the partially imaged bones. No significant knee joint effusion is seen. Limited evaluation of tendons. There appears to be irregularity of the posterior aspect of the proximal Achilles tendon, image [id number], which may reflect partial tearing. LEFT TIBIA AND FIBULA: The extremity is imaged in atypical positioning. There is flexion at the knee joint, with resulting posterior angulation of the tibia and fibula, with axial imaging obtained in an atypical oblique orientation through the tibia and fibula. This limits evaluation.. There is soft tissue irregularity along the anterior distal third of the tibia.There is subcutaneous edema/cellulitis in the tibia and fibula. No loculated or drainable fluid collections identified. No evidence of fluid collections identified within the muscles or significant gross fluid identified in the interfascial planes of the tibia-fibula. No bony erosive or destructive changes identified in the tibia or fibula. No significant knee joint effusion is seen. There is limited evaluation of the tendons. The Achilles tendon grossly appears intact. CT/CT lower leg RT w IV con IMPRESSION: Atypical positioning of the lower extremities with associated limitation. Evaluation. RIGHT TIBIA AND FIBULA: 1. As seen on the prior radiograph, is bony demineralization with possible bony erosive changes in the lateral malleolus. Osteomyelitis cannot be excluded. MRI is more sensitive and specific, and MRI evaluation may be helpful. 2. Multifocal areas of soft tissue irregularity/ulceration in the tibia-fibula. 3. Subcutaneous edema/cellulitis. No loculated fluid collection seen. 4. Question posterior aspect partial tearing of the proximal Achilles tendon. LEFT TIBIA AND FIBULA: No CT evidence of definite osteomyelitis. MRI is more sensitive and specific, and and can be obtained as clinically warranted.
[2022-09-10 23:43] VITALS: BP 152/76; PULSE 89; O2SAT 98; BMI 25.0
--- NOTE | 2022-09-10 23:43 | ECG_ITS ---
Test Reason : ALTERED MENTAL Blood Pressure : / mmHG Vent. Rate : 106 BPM Atrial Rate : 000 BPM P-R Int : 000 ms QRS Dur : 144 ms QT Int : 338 ms P-R-T Axes : 000 022 029 degrees QTc Int : 448 ms Atrial fibrillation with rapid ventricular response Right bundle branch block Inferior infarct (cited on or before 24-JUL-2021) Abnormal ECG When compared with ECG of 11-JUN-2022 16:25, No significant change was found Referred By: Zaria Garcia Electronically Signed By:Mamadou Call
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
[2022-09-11] VITALS (7 sets, daily range): BP systolic 114–149; BP diastolic 75–85; PULSE 80–103; RESP 15–20; TEMP 36.3–37.2; O2SAT 93–99
[2022-09-11 01:04] LABS: Basophils Percent Auto 0.4 % (0-2); Eosinophils Absolute Auto 0.1 X10*3/uL (0.0-0.4); Eosinophils Percent Auto 0.9 % (0-4); Hematocrit 28.4 % (42.0-52.0); Hemoglobin 8.6 g/dl (14.0-18.0); Imm Gran Abs Auto 0.04 X10*3/uL (0.00-0.03); Imm Gran Pct Auto 0.4 % (0.0-0.4); Lymphocytes Absolute Auto 1.1 X10*3/uL (1.2-4.9); Lymphocytes Percent Auto 11.3 % (20-40); MANUAL DIFF FLAG NO; Mean Corpuscular HGB Conc 30.3 g/dl (31.0-36.0); Mean Corpuscular Hemoglobin 25.7 pg (27.0-33.0); Monocytes Absolute Auto 0.9 X10*3/uL (0.1-1.2); Neutrophils Absolute Auto 7.5 x10*3/uL (2.0-8.3); Platelet Count 323 X10*3/uL (160-400); Red Blood Count 3.34 X10*6/uL (4.60-5.80); Red Cell Distribution Width 18.6 % (11.0-16.0); White Blood Count 9.6 X10*3/uL (4.8-10.8)
[2022-09-11 01:17] LABS: Lactic Acid 1.8 mmol/L (0.5-2.0)
[2022-09-11 01:19] LABS: COVID-19 Test Negative (Negative); IDNOW Serial# BCCEAD1C
[2022-09-11 01:23] LABS: Anion Gap 12 (12-20); Calcium 8.7 mg/dL (8.4-10.2); Carbon Dioxide 26 mmol/L (22-29); Chloride 103 mmol/L (96-108); Sodium 137 mmol/L (135-145)
[2022-09-11 01:26] LABS: Troponin-I High Sensitivity 9.7 ng/L (<3.5-35.0)
[2022-09-11 01:41] LABS: Alanine Aminotransferase < 6 U/L (0-40); Albumin Level 3.3 g/dL (3.5-5.0); Alkaline Phosphatase 80 U/L (39-117); Aspartate Amino Transferase 14 U/L (5-37); Bilirubin Direct 0.2 mg/dL (0.0-0.5); Bilirubin Total 0.3 mg/dL (0.0-1.0); Blood Urea Nitrogen 19 mg/dL (9-16); Creatinine Clr Calc Pharmacy 108.4; Estimated Glomerular Filt Rate > 60; Glucose Random 93 mg/dL (60-115); Lipase 9 U/L (8-78); Total Protein 6.1 g/dL (6.5-8.0)
[2022-09-11 02:14] LABS: B Type Natriuretic Peptide 1163 pg/mL (<100)
--- NOTE | 2022-09-11 02:40 | PC.NURSE ---
In room w/ Dr Garcia for rectal exam. Guaiac card sent to lab.
[2022-09-11 02:49] LABS: OBS Int Ctl Valid YES; OBS1 NEGATIVE (NEGATIVE)
[2022-09-11 03:57] LABS: Appearance Urine Clear; Color Urine Yellow; Glucose Urine UA Negative (Negative); Leukocyte Esterase Urine Negative (Negative); Nitrite Urine Negative (Negative); Specific Gravity - Urine >= 1.030 (1.005-1.025); Urine Blood Negative (Negative); Urine Ketones Trace mg/dL (Negative); Urine Protein Negative (Neg-Trace)
[2022-09-11 06:06] LABS: Amphetamine Screen Urine Not Detected (Not Detect); Barbiturates, Urine Not Detected (Not Detect); Benzodiazepines Screen Urine Not Detected (Not Detect); Cannabinoid Screen Urine Not Detected (Not Detect); Cocaine Screen Urine Not Detected (Not Detect); Fentanyl, urine Not Detected (Not Detect); Opiate Screen Urine POSITIVE (Not Detect); Phencyclidine Screen Urine Not Detected (Not Detect)
[2022-09-11 06:20] LABS: MANUAL DIFF FLAG NO
--- NOTE | 2022-09-11 06:33 | PM.IMHP ---
History of Present Illness Date of Service: 09/11/22 Chief Complaint: hallucinating 61-year-old male with past medical history of AFib on digoxin, CHF, COPD, HTN, as well as documented history of alcohol abuse presents to the hospital with complaints of hallucinations. Patient is oriented to self and place, but forgets as soon as I leave the room and come back who I a.m. And I have to introduce myself all over again. He was noted to be talking to himself, reports that he was recently started on gabapentin for his chronic pain in his lower extremity secondary to a chronic wound which he attributes his symptoms too. He reports that few months ago he was started on tramadol which caused him similar symptoms. Patient denies any chest pain, no shortness of breath, no headache or change in vision, no weakness numbness or tingling, no abdominal pain nausea or vomiting, no diarrhea constipation, no urinary symptoms and no lower extremity edema On arrival to the ED patient hemodynamically stable no significant abnormal vitals Labs are significant for WBC count of 10.3, hemoglobin of 8.6, hematocrit of 28.4 which has dropped from his baseline of around 10, UA negative, UDS positive for opioids patient reports that he is on methadone, COVID-[address] shows no acute intracranial pathology chest x-ray shows no radiographic evidence of pneumonia or acute pulmonary process Review of Systems Review of Systems: Yes all other systems are reviewed and are negative [facility] Medical History A-fib Alcohol abuse Alcohol dependence Anemia Apical mural thrombus Atrial fibrillation Cardiomyopathy CHF (congestive heart failure) Claudication of both lower extremities COPD (chronic obstructive pulmonary disease) COPD (chronic obstructive pulmonary disease) COPD exacerbation Hernia HTN (hypertension) Family History Mother Hx of CABG Surgical History H/O left knee surgery History of cardiac cath Status post cardiac catheterization Social History Household Members: Friend(s) Housing: Other Housing Other:: Living with sister. Do you presently have visiting nurse or other home services: No Alcohol intake: never Patient Tobacco Use Status: Current everyday Tobacco user Tobacco use type: Cigar Cigarettes Per Day: 2 Years Smoked: 25 +/- Smoked in Last 30 Days: Yes e-Cigarette/Vaping Use: Never Used Second Hand Smoke Exposure: Yes Use of substances other than those prescribed or required for medical reasons: No Substance Use Type: Marijuana Advance Directives: No service: No Current occupational status: retired Cognitive needs: No Hearing needs: No Vision needs: No Meds Allergies Allergy/AdvReac Type Severity Reaction Status Date / Time bee pollen [BEE STINGS] Allergy Severe SWELLING Verified 09/11/22 03:11 Active Medications: Current Medications Acetaminophen (Acetaminophen 325 Mg Tablet) 650 mg PO Q6H PRN PRN Reason: Pain, Mild (Pain Scale 1-3) Ondansetron HCl (Ondansetron Hcl 4 Mg/2 Ml Vial) 4 mg IVPUSH Q8H PRN PRN Reason: Nausea and Vomiting Pharmacy Consult (Consult Rx Perform Med Rec) 1 each MISCELLANE ONCE PRN PRN Reason: Consult order Sodium Chloride (0.9 % Sodium Chloride Flush 3 Ml Syringe) 3 ml IVFLUSH QSHIFT [facility] Physical Exam Vital Signs and Narrative: Vital Signs: Last Vital Signs Temp 98.8 F 09/11/22 05:51 Pulse 90 09/11/22 05:51 BP 140/85 H 09/11/22 05:51 Pulse Ox 94 09/11/22 05:51 O2 Del Method 09/11/22 05:51 BMI result Body Mass Index 25.0 Const: Other: patient is oriented to self place as well as situation but also confused, he forgets who I a.m. as soon as I leave the room and come back, he is heard talking to himself in the room, he is also having visual hallucinations General: cooperative and no acute distress Orientation/consciousness: patient oriented x3 Eyes: General: appearance normal, both eyes and all related structures Resp: Effort & Inspection: normal respiratory effort Auscultation: clear to auscultation bilaterally Cardio: Rate: regular rate Rhythm: regular rhythm GI: Palpation (GI): Soft to palpation Auscultation: normal bowel sounds Skin: Other: chronic wound in the lateral aspect of right lower extremity, stable, no appearance of acute infection Neuro: General: patient oriented x3 Cognition (Neuro): normal cognition Extrem: General: Yes no pedal edema Results Labs CBC and Chem 7: 09/11/22 06:06 09/11/22 00:56 Labs: Laboratory Results - last 24 hr 09/11/22 09/11/22 09/11/22 00:55 00:56 00:56 MCV 85.0 MCH 25.7 L MCHC 30.3 L RDW 18.6 H Plt Count 323 MPV 8.0 L Immature Gran % (Auto) 0.4 Neut % (Auto) 78.0 H Lymph % (Auto) 11.3 L [place] % (Auto) 9.0 Eos % (Auto) 0.9 Baso % (Auto) 0.4 Lymph # (Auto) 1.1 L [place] # (Auto) 0.9 Eos # (Auto) 0.1 Baso # (Auto) 0.0 Abs Immat Gran (auto) 0.04 H Absolute Neuts (auto) 7.5 Absolute Nucleated RBC 0.000 Nucleated RBC % (auto) 0.0 Anion Gap 12 Estim Creat Clear Calc 108.4 Estimated GFR > 60 Random Glucose 93 Lactic Acid Calcium 8.7 D Total Bilirubin 0.3 Direct Bilirubin 0.2 AST 14 ALT < 6 Alkaline Phosphatase 80 Troponin I High Sens B-Natriuretic Peptide 1163 H Total Protein 6.1 L Albumin 3.3 L Lipase 9 Urine Color Urine Appearance Urine pH Ur Specific [place] Urine Protein Urine Glucose (UA) Urine Ketones Urine Blood Urine Nitrite Ur Leukocyte Esterase Stool Occult Blood Urine Opiates Screen Urine Fentanyl Screen Ur Barbiturates Screen Ur Phencyclidine Scrn Ur Amphetamines Screen U Benzodiazepines Scrn Urine Cocaine Screen U Marijuana (THC) Screen COVID-19 (JAMAR) COVID-19 Clin Com 09/11/22 09/11/22 09/11/22 00:56 00:56 00:57 MCV MCH MCHC RDW Plt Count MPV Immature Gran % (Auto) Neut % (Auto) Lymph % (Auto) [place] % (Auto) Eos % (Auto) Baso % (Auto) Lymph # (Auto) [place] # (Auto) Eos # (Auto) Baso # (Auto) Abs Immat Gran (auto) Absolute Neuts (auto) Absolute Nucleated RBC Nucleated RBC % (auto) Anion Gap Estim Creat Clear Calc Estimated GFR Random Glucose Lactic Acid 1.8 Calcium Total Bilirubin Direct Bilirubin AST ALT Alkaline Phosphatase Troponin I High Sens 9.7 B-Natriuretic Peptide Total Protein Albumin Lipase Urine Color Urine Appearance Urine pH Ur Specific [place] Urine Protein Urine Glucose (UA) Urine Ketones Urine Blood Urine Nitrite Ur Leukocyte Esterase Stool Occult Blood Urine Opiates Screen Urine Fentanyl Screen Ur Barbiturates Screen Ur Phencyclidine Scrn Ur Amphetamines Screen U Benzodiazepines Scrn Urine Cocaine Screen U Marijuana (THC) Screen COVID-19 (JAMAR) Negative COVID-19 Clin Com See Note 09/11/22 09/11/22 09/11/22 02:45 03:48 03:48 MCV MCH MCHC RDW Plt Count MPV Immature Gran % (Auto) Neut % (Auto) Lymph % (Auto) [place] % (Auto) Eos % (Auto) Baso % (Auto) Lymph # (Auto) [place] # (Auto) Eos # (Auto) Baso # (Auto) Abs Immat Gran (auto) Absolute Neuts (auto) Absolute Nucleated RBC Nucleated RBC % (auto) Anion Gap Estim Creat Clear Calc Estimated GFR Random Glucose Lactic Acid Calcium Total Bilirubin Direct Bilirubin AST ALT Alkaline Phosphatase Troponin I High Sens B-Natriuretic Peptide Total Protein Albumin Lipase Urine Color Yellow Urine Appearance Clear Urine pH 6.0 Ur Specific [place] >= 1.030 H Urine Protein Negative Urine Glucose (UA) Negative Urine Ketones Trace Urine Blood Negative Urine Nitrite Negative Ur Leukocyte Esterase Negative Stool Occult Blood NEGATIVE Urine Opiates Screen POSITIVE H Urine Fentanyl Screen Not Detected Ur Barbiturates Screen Not Detected Ur Phencyclidine Scrn Not Detected Ur Amphetamines Screen Not Detected U Benzodiazepines Scrn Not Detected Urine Cocaine Screen Not Detected U Marijuana (THC) Screen Not Detected COVID-19 (JAMAR) COVID-19 Clin Com Imaging Radiologist's Impressions: Impressions Chest X-Ray 09/11/22 00:12 IMPRESSION: No convincing radiographic evidence of pneumonia. No acute pulmonary process. Head CT 09/11/22 00:15 IMPRESSION: No acute intracranial pathology. Assessment and Plan (1) Encephalopathy: Status: Acute (2) History of alcohol abuse: Status: Acute (3) Acute on chronic anemia: Status: Acute Plan 61-year-old male with past medical history of AFib on digoxin, carvedilol as well as Eliquis that does not appear on his current med rec, history of alcohol abuse presents to the hospital with complaints of hallucination # encephalopathy - unclear etiology at this time - has acute auditory and visual hallucination - possibly secondary to alcoholic encephalopathy /Wernickes encephalopathy given his history of alcohol abuse - no evidence of acute infection - urine drug screen positive for opiates only - head CT negative - at this time will treat with high-dose thiamine, D5lr - hold gabapentin, as well as tramadol and trazodone # history of alcohol abuse - denies alcohol use today - will place on CIWA - no evidence of withdrawal at this anna e # acute on chronic kidney - normocytic anemia - asymptomatic - will obtain stool occult, B12 folic acid - no evidence of GI bleed - follow CBC # AFib - patient on digoxin, as well as carvedilol - Eliquis for anticoagulation - will hold Eliquis given acute anemia - continue digoxin and carvedilol - digoxin level pending # CHF with reduced ejection fraction - not in exacerbation - continue furosemide DVT prophylaxis: SCDs given patient's acute encephalopathy he will require minimum 2 night inpatient hospital stay for further workup Time Spent With Patient Time: Total time managing care of this patient today ____ minutes. Quality Stroke Does the patient have a stroke diagnosis?: No VTE Prior VTE?: No VTE Risk Level:: Medical - low VTE Device Contraindication: Treatment Not Indicated VTE Drug Contraindication: Treatment Not Indicated
[2022-09-11 06:37] LABS: Basophils Absolute Auto 0.1 X10*3/uL (0.0-0.2); Basophils Percent Auto 0.7 % (0-2); Eosinophils Absolute Auto 0.1 X10*3/uL (0.0-0.4); Eosinophils Percent Auto 0.7 % (0-4); Hematocrit 26.7 % (42.0-52.0); Hemoglobin 8.2 g/dl (14.0-18.0); Imm Gran Abs Auto 0.04 X10*3/uL (0.00-0.03); Imm Gran Pct Auto 0.4 % (0.0-0.4); Lymphocytes Absolute Auto 1.3 X10*3/uL (1.2-4.9); Lymphocytes Percent Auto 12.6 % (20-40); Mean Corpuscular HGB Conc 30.7 g/dl (31.0-36.0); Mean Corpuscular Hemoglobin 26.2 pg (27.0-33.0); Mean Corpuscular Volume 85.3 fL (80.0-98.0); Mean Platelet Volume 8.5 fL (9.4-12.4); Monocytes Percent Auto 9.6 % (2-11); Neutrophils Absolute Auto 7.8 x10*3/uL (2.0-8.3); Platelet Count 352 X10*3/uL (160-400); Red Blood Count 3.13 X10*6/uL (4.60-5.80); Red Cell Distribution Width 18.8 % (11.0-16.0); White Blood Count 10.3 X10*3/uL (4.8-10.8)
[2022-09-11 06:38] LABS: Digoxin 0.9 ng/mL (0.8-2.0)
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
[2022-09-11 07:00] LABS: Anion Gap 11 (12-20); Blood Urea Nitrogen 16 mg/dL (9-16); Calcium 8.2 mg/dL (8.4-10.2); Carbon Dioxide 26 mmol/L (22-29); Chloride 104 mmol/L (96-108); Creatinine Clr Calc Pharmacy 115.4; Estimated Glomerular Filt Rate > 60; Glucose Random 100 mg/dL (60-115); Potassium 3.9 mmol/L (3.3-5.1); Sodium 137 mmol/L (135-145); Thyroid Stimulating Hormone 2.04 uIU/mL (0.32-4.0)
--- NOTE | 2022-09-11 08:12 | PHA.MEDREC ---
Pharmacy Consult ? Medication Reconciliation Pharmacy has completed the medication reconciliation. Overnight nurse completed medication reconciliation. MD holding eliquis at this time due to anemia. Pharmacy confirmed with patient that he is taking it at home normally but he is aware that they are temporarily holding it.
[2022-09-11] MEDS: Furosemide 20 MG TABLET PO (09:47)
[2022-09-11] MEDS: Folic Acid 1 MG TABLET PO (09:47)
[2022-09-11] MEDS: Digoxin 0.125 MG TABLET PO (09:48)
[2022-09-11] MEDS: carvediloL 12.5 MG TABLET PO ×2 (09:48→20:14)
[2022-09-11 10:41] LABS: Folate 17.4 ng/mL (> or = 4.0); Vitamin B12 409 pg/mL (200-900)
--- NOTE | 2022-09-11 13:44 | PM.EVENT ---
Event Note Date of Service: 09/11/22 Event Note: Pt seen and examined at bedside, admitted early this AM for encephalopathy, possibly secondary to alcoholic encephalopathy/ Wernickes encephalopathy given hx alcohol abuse. Has been on CIWA scale without evidence of withdrawal, reports last ETOH consumption was 1 week ago. He is A&O x self and time, but confused about place and situation. Noted to have intermittent AH/VH and slightly restless, but otherwise no behavioral disturbance. Psych consult pending. Continue monitoring CIWA. Continue high dose thiamine , folic acid, D5/LR. H/H with slight drop to 8.2/26.7%, stool occult blood negative. Resume eliquis, follow H/H. Psych consult pending
[2022-09-11] MEDS: Sacubitril/Valsartan 49/51 1 TAB TABLET PO ×2 (14:34→20:14)
--- NOTE | 2022-09-11 14:46 | PC.NURSE ---
SPOKE WITH HOSPITALIST ABOUT WOUND CONSULT FOR LEGS AND RECCOMENDATION
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
[2022-09-11] MEDS: Acetaminophen 325 MG TABLET 650 MG PO (17:20)
[2022-09-11] MEDS: Apixaban 5 MG TABLET PO (20:14)
[2022-09-11] MEDS: Atorvastatin Calcium 40 MG TABLET PO (20:14)
[2022-09-12 03:36] VITALS: BP 154/86; PULSE 81; RESP 20; TEMP 36.5; O2SAT 88
[2022-09-12] MEDS: Omeprazole 40 MG CAPSULE.DR PO (06:13)
[2022-09-12] MEDS: Acetaminophen 325 MG TABLET 650 MG PO ×2 (06:16→21:21)
[2022-09-12 07:23] LABS: MANUAL DIFF FLAG NO
[2022-09-12 07:25] LABS: Basophils Absolute Auto 0.1 X10*3/uL (0.0-0.2); Basophils Percent Auto 0.5 % (0-2); Eosinophils Absolute Auto 0.1 X10*3/uL (0.0-0.4); Eosinophils Percent Auto 0.6 % (0-4); Hematocrit 27.3 % (42.0-52.0); Hemoglobin 8.2 g/dl (14.0-18.0); Imm Gran Abs Auto 0.09 X10*3/uL (0.00-0.03); Imm Gran Pct Auto 0.7 % (0.0-0.4); Lymphocytes Absolute Auto 1.1 X10*3/uL (1.2-4.9); Mean Corpuscular Hemoglobin 25.7 pg (27.0-33.0); Mean Corpuscular Volume 85.6 fL (80.0-98.0); Mean Platelet Volume 8.7 fL (9.4-12.4); Monocytes Absolute Auto 0.9 X10*3/uL (0.1-1.2); Monocytes Percent Auto 7.4 % (2-11); Neutrophils Absolute Auto 10.2 x10*3/uL (2.0-8.3); Neutrophils Percent Auto 81.8 % (45-73); Platelet Count 360 X10*3/uL (160-400); Red Blood Count 3.19 X10*6/uL (4.60-5.80); Red Cell Distribution Width 18.7 % (11.0-16.0); White Blood Count 12.5 X10*3/uL (4.8-10.8)
[2022-09-12 07:47] VITALS: BP 136/80; PULSE 90; RESP 20; TEMP 36.1; O2SAT 95
[2022-09-12 08:40] LABS: Anion Gap 13 (12-20); Blood Urea Nitrogen 13 mg/dL (9-16); Calcium 8.3 mg/dL (8.4-10.2); Carbon Dioxide 25 mmol/L (22-29); Chloride 101 mmol/L (96-108); Creatinine Clr Calc Pharmacy 111.8; Estimated Glomerular Filt Rate > 60; Glucose Random 144 mg/dL (60-115); Potassium 3.8 mmol/L (3.3-5.1); Sodium 135 mmol/L (135-145)
[2022-09-12] MEDS: carvediloL 12.5 MG TABLET PO ×2 (09:34→21:17)
[2022-09-12] MEDS: PHENobarbitaL 15 MG TABLET 45 MG PO ×2 (09:34→21:17)
[2022-09-12] MEDS: Apixaban 5 MG TABLET PO ×2 (09:35→21:17)
[2022-09-12] MEDS: Furosemide 20 MG TABLET PO (09:35)
[2022-09-12] MEDS: Folic Acid 1 MG TABLET PO (09:35)
[2022-09-12] MEDS: Digoxin 0.125 MG TABLET PO (09:35)
[2022-09-12] MEDS: Sacubitril/Valsartan 49/51 1 TAB TABLET PO ×2 (09:35→21:17)
--- NOTE | 2022-09-12 10:24 | MHC.CM.PN ---
RUSTY 09/12/22, EMR REVIEWED AND CM MET W/PT WHO REPORTS HE LIVES ALONE, COMPLETES ALL CARE INDEPENDENTLY, USES A W//C FOR MOBILITY HOWEVER CAN STAND AND TRANSFER TO BED, TOILET/SHOWER AND HAS [facility] FOR WOUND CARE, PT ALSO VERIFIES COVID VACC X3 AND ON FILE FROM PREVIOUS ADMIT, HCP VERIFIED ROSANGELA CAMPOS AND ON FILE ADN PCP ON FILE SIXTO LEVY. ANTIC D/C HOME W/RESUMP OF [facility] AND PT TO ARRANGE TRANSPORT.
--- NOTE | 2022-09-12 10:47 | HO.PM.IMPN ---
Subjective Subjective Date of Service: 09/12/22 Interval History: Seen in follow up for encephalopathy Interval history: Pt alert and oriented x3, able to answer simple questions, but continues to report auditory hallucinations which he is aware of the hallucinations. However, then will start talking about spiders that caused him to move from his home. He was also noted to be hallucinating when evaluated by psychiatry yesterday. He denies pain. Has no complaints at this time. WBC elevated to 12.2. His sister did call in and reports that he likely has consumed alcohol in the last week despite pt reporting no etoh intake in 8 days on admission. Now on phenobarb protocol. Review of Systems General: No fevers, malaise, unintentional weight loss Cardiovascular: No chest pain, palpitations, or leg edema Respiratory: No shortness of breath, wheezing, cough GI: No abdominal pain, nausea, vomiting, diarrhea : No dysuria, hematuria, increased urinary frequency, decreased urinary output MSK: No myalgia, back pain Neuro: No headaches, weakness, paresthesias Psych: +halluciinations Skin: No rashes or lesions Physical Exam Vital Signs: Vital Signs: Last Vital Signs Temp 97 F 09/12/22 07:47 Pulse 90 09/12/22 07:47 Resp 20 09/12/22 07:47 BP 136/80 09/12/22 07:47 Pulse Ox 95 09/12/22 07:47 O2 Del Method 09/12/22 03:36 BMI result Body Mass Index 25.0 Constitutional - Awake and Alert, No apparent distress Eyes - PERRLA, EOMI Cardiovascular - S1S2, RRR, No edema Respiratory - Normal lung expansion, Normal respiratory effort, No respiratory distress, CTA bilaterally Gastrointestinal - NT / ND; +BS; No rebound or guarding Extremities - no calf tenderness bilaterally, mild swelling BLE with faint erythema and warmth noted to lower legs B/L. Chronic non healing roberts to the lower legs covering majority anterior right lower leg and satellite roberts to posterios and lateral aspect of leg. Similar, but small burn to anterior left lower leg and left lateral malleolus. Roberts covered in conforming stretch bandage. Right leg contracted to >90 degrees. See photos Skin - Warm/Dry. Erythema, warmth BLE Neurological - Alert & oriented x3, CN II-XII in tact Psychological - Appropriate affect Objective Data Active Medications Acetaminophen (Acetaminophen 325 Mg Tablet) 650 mg PO Q6H PRN PRN Reason: Pain, Mild (Pain Scale 1-3) Last Admin: 09/12/22 06:16 Dose: 650 mg Documented By: DORIE Apixaban (Apixaban 5 Mg Tablet) 5 mg PO BID [facility] Last Admin: 09/12/22 09:35 Dose: 5 mg Documented By: JOSUE Atorvastatin Calcium (Atorvastatin Calcium 40 Mg Tablet) 40 mg PO BEDTIME [facility] Last Admin: 09/11/22 20:14 Dose: 40 mg Documented By: DORIE Carvedilol (Carvedilol 12.5 Mg Tablet) 12.5 mg PO BID [facility]; Protocol Last Admin: 09/12/22 09:34 Dose: 12.5 mg Documented By: JOSUE Digoxin (Digoxin 0.125 Mg Tablet) 0.125 mg PO DAILY [facility] Last Admin: 09/12/22 09:35 Dose: 0.125 mg Documented By: JOSUE Folic Acid (Folic Acid 1 Mg Tablet) 1 mg PO DAILY [facility] Last Admin: 09/12/22 09:35 Dose: 1 mg Documented By: JOSUE Furosemide (Furosemide 20 Mg Tablet) 20 mg PO DAILY [facility]; Protocol Last Admin: 09/12/22 09:35 Dose: 20 mg Documented By: JOSUE Haloperidol (Haloperidol 1 Mg Tablet) 2 mg PO Q6H PRN PRN Reason: aggitation/hallucination Last Admin: 09/11/22 17:20 Dose: 2 mg Documented By: TYLER Dextrose/Lactated Ringer's (D5lr) 1,000 mls @ 100 mls/hr IVCONT .Q10H [facility] Last Admin: 09/11/22 23:10 Dose: 100 mls/hr Documented By: DORIE Thiamine HCl 200 mg/ Sodium (Chloride) 102 mls @ 204 mls/hr IV Q8H [facility] Last Infusion: 09/12/22 07:00 Dose: 0 mls/hr Documented By: DORIE Omeprazole (Omeprazole 40 Mg Capsule.Dr) 40 mg PO DAILY@0630 [facility] Last Admin: 09/12/22 06:13 Dose: 40 mg Documented By: DORIE Ondansetron HCl (Ondansetron Hcl 4 Mg/2 Ml Vial) 4 mg IVPUSH Q8H PRN PRN Reason: Nausea and Vomiting Pharmacy Consult (Consult Rx Perform Med Rec) 1 each MISCELLANE ONCE PRN PRN Reason: Consult order Pharmacy Consult (Consult Rx Etoh Phenob Im/Po) 1 each MISCELLANE ONCE PRN; Protocol PRN Reason: Consult order Pharmacy Consult (Consult Rx Vancomycin Dosing) 1 each MISCELLANE DAILY PRN PRN Reason: Consult order Phenobarbital (Phenobarbital 15 Mg Tablet) 45 mg PO BID [facility] Stop: 09/13/22 21:01 Last Admin: 09/12/22 09:34 Dose: 45 mg Documented By: JOSUE Phenobarbital (Phenobarbital 30 Mg Tablet) 30 mg PO BID [facility] Stop: 09/15/22 21:01 Phenobarbital (Phenobarbital 15 Mg Tablet) 15 mg PO DAILY [facility] Stop: 09/17/22 09:01 Sacubitril/Valsartan (Sacubitril/Valsartan 49/51 1 Tab Tablet) 1 tab PO BID [facility]; Protocol Last Admin: 09/12/22 09:35 Dose: 1 tab Documented By: JOSUE Sodium Chloride (0.9 % Sodium Chloride Flush 3 Ml Syringe) 3 ml IVFLUSH QSHIFT [facility] Last Admin: 09/12/22 09:34 Dose: 3 ml Documented By: JOSUE Trazodone HCl (Trazodone Hcl 50 Mg Tablet) 50 mg PO BEDTIME PRN PRN Reason: sleep Labs CBC & Chem 7: 09/12/22 06:27 09/12/22 06:27 Labs: Laboratory Results - last 24 hr 09/12/22 09/12/22 06:27 06:27 MCV 85.6 MCH 25.7 L MCHC 30.0 L RDW 18.7 H Plt Count 360 MPV 8.7 L Immature Gran % (Auto) 0.7 H Neut % (Auto) 81.8 H Lymph % (Auto) 9.0 L [place] % (Auto) 7.4 Eos % (Auto) 0.6 Baso % (Auto) 0.5 Lymph # (Auto) 1.1 L [place] # (Auto) 0.9 Eos # (Auto) 0.1 Baso # (Auto) 0.1 Abs Immat Gran (auto) 0.09 H Absolute Neuts (auto) 10.2 H Absolute Nucleated RBC 0.000 Nucleated RBC % (auto) 0.0 Anion Gap 13 Estim Creat Clear Calc 111.8 Estimated GFR > 60 Random Glucose 144 H Calcium 8.3 L Microbiology Microbiology Results: Microbiology 09/11/22 01:08 Blood Culture - Preliminary Blood - Venous No growth after 24 hours. 09/11/22 00:56 Blood Culture - Preliminary Blood - Venous No growth after 24 hours. Assessment and Plan (1) Encephalopathy: Status: Acute (2) Delirium due to multiple etiologies: Status: Acute (3) History of alcohol abuse: Status: Acute Plan ?61-year-old male with past medical history of AFib on digoxin, carvedilol as well as Eliquis, chronic roberts BLE, history of alcohol abuse presents to the hospital with complaints of hallucination #?Encephalopathy- most likely alcoholic, less likely infectious in etiology -? Delerium/hallucinations evaluated by psych. Less likely Wernicke's -? has acute auditory and visual hallucination -? Has evidence BLE cellulitis, now with leukocytosis but no other SIRS criteria. See below -? urine drug screen positive for opiates only. TSH normal - ?head CT negative -? hold gabapentin, as well as tramadol and trazodone - Continue high dose thiamine, folic acid per psych. Continue phenobarb protocol for possible withdrawal - Haldol 2mg q6h prn for hallucinations # Acute cellulitis BLE with chronic nonhealing roberts BLE - IV vanco, cefepime - Wound care consult - Dressing changes per wound clinic note 09/06 - WBC 12.2. No other SIRS criteria. - Monitor VS, follow CBC #? history of alcohol abuse -? Reports last etoh use was 1 week prior to arrival, however sister reports he is likely consuming etoh more frequently than he is admitting -? will place on CIWA - continue phenobarb- hallucinations could be manifestation of withdrawal #? acute on normocytic chronic anemia -? asymptomatic, H/H stable since admission - ?Stool occult blood negative. Vitamin B12 and folic acid normal -? no evidence of GI bleed -? follow CBC #? AFib- rate controlled -? Continue digoxin, carvedilol -? Eliquis resumed given stability of anemia -? Dig level 0.9 #? CHF with reduced ejection fraction -? not in exacerbation -? continue furosemide ?DVT prophylaxis: SCDs, on eliquis Pt reports ongoing inpt stay for management of acute encephalopathy with close monitoring of mental status as well as management of BLE cellulitis at risk for MRSA/VRE/pseudomonas Time Spent With Patient Time: Total time managing care of this patient today ____ minutes. Quality Stroke Does the patient have a stroke diagnosis?: No VTE Prior VTE?: No VTE Risk Level:: Medical - low VTE Device Contraindication: Treatment Not Indicated VTE Drug Contraindication: Treatment Not Indicated
[2022-09-12 12:00] VITALS: BP 118/82; PULSE 68; RESP 18; TEMP 36.6; O2SAT 95
[2022-09-12 13:29] VITALS: BMI 25.0
--- NOTE | 2022-09-12 13:36 | MHC.CLN ---
NUTRITION STAGE II WOUND TO BUTTOCK. ADDED ENSURE BID TO PROMOTE WOUND HEALING AND NUTRITIONAL INTAKE. PROVIDES ADDITIONAL 700 KCALS, 40 G PROTEIN.
--- NOTE | 2022-09-12 13:44 | PHA.PROG ---
Admission Date/Time: September 11, 2022 04:09 Indication: SKIN Weight in k.575 kg Adjusted body weight in Kg: [place] body weight in Kg: Obesity Dosing Indication % IBW: Serum Creatinine - Last 168 Hours 09/11/22 09/11/22 09/12/22 00:56 06:06 06:27 Creatinine 0.66 0.62 0.64 Estimated CrCl and GFR - Last 168 Hours 09/11/22 09/11/22 09/12/22 00:56 06:06 06:27 Estim Creat Clear Calc 108.4 115.4 111.8 Estimated GFR > 60 > 60 > 60 Vancomycin Loading Dose: 1750 MG Current Vancomycin Dosing Regimen: 1000 MG Q12H Vancomycin Monitoring using AUC goal of 400 - 600 range with trough as surrogate marker: AUC 438 TROUGH 12.8 Date and Time for next Vancomycin Level to be drawn: 09/13 @1100 Pharmacist Comments on Vancomycin Plan: TROUGH AFTER 2 DOSES SINCE PHARMACY WILL BE CLOSED AFTER THREE DOSES Vancomycin dosing will take advantage of [employer] as a clinical decision support tool that uses Bayesian modeling to calculate individual patient's pharmacokinetic parameters and forecast the patient's drug concentration time course with the target goal AUC 24 range of 400 - 600 mg/L/hr.
--- OUTSIDE RECORDS SUMMARY | 2022-09-12 14:57 | XMS_ITS | Continuity of Care Document ---
:1960 Author Organization [facility] Address [address] [place] [address]- Care Team Providers Name Role Phone Roxy ANDRADE, Antonino Gannon Primary Care Physician
--- OUTSIDE RECORDS SUMMARY | 2022-09-12 14:57 | XMS_ITS | Continuity of Care Document ---
:1960 Author Organization [facility] Address [address] [place] [address]-
[2022-09-12 15:05] VITALS: BP 166/100; PULSE 65; RESP 30; TEMP 36; O2SAT 97
[2022-09-12 19:10] VITALS: BP 154/90; PULSE 84; RESP 18; TEMP 36.1; O2SAT 96
--- NOTE | 2022-09-12 20:31 | PM.EVENT ---
Event Note Date of Service: 09/12/22 Event Note: pt downgraded to medsurg Time Spent With Patient Time: Total time managing care of this patient today ____ minutes.
[2022-09-12] MEDS: Atorvastatin Calcium 40 MG TABLET PO (21:17)
[2022-09-13] VITALS: BP 158/80; PULSE 97; RESP 16; TEMP 36.8; O2SAT 97
[2022-09-13] MEDS: Omeprazole 40 MG CAPSULE.DR PO (05:25)
[2022-09-13] MEDS: Acetaminophen 325 MG TABLET 650 MG PO ×2 (05:25→14:42)
[2022-09-13 05:39] LABS: MANUAL DIFF FLAG NO
[2022-09-13 05:42] LABS: Basophils Percent Auto 0.3 % (0-2); Eosinophils Absolute Auto 0.2 X10*3/uL (0.0-0.4); Eosinophils Percent Auto 1.6 % (0-4); Hematocrit 25.1 % (42.0-52.0); Hemoglobin 7.6 g/dl (14.0-18.0); Imm Gran Abs Auto 0.03 X10*3/uL (0.00-0.03); Imm Gran Pct Auto 0.3 % (0.0-0.4); Lymphocytes Absolute Auto 1.6 X10*3/uL (1.2-4.9); Lymphocytes Percent Auto 16.9 % (20-40); Mean Corpuscular HGB Conc 30.3 g/dl (31.0-36.0); Mean Corpuscular Hemoglobin 25.4 pg (27.0-33.0); Mean Corpuscular Volume 83.9 fL (80.0-98.0); Mean Platelet Volume 8.8 fL (9.4-12.4); NRBC Pct Auto 0.2 /100WBC (0.0-0.2); Neutrophils Absolute Auto 6.8 x10*3/uL (2.0-8.3); Neutrophils Percent Auto 70.9 % (45-73); Platelet Count 302 X10*3/uL (160-400); Red Blood Count 2.99 X10*6/uL (4.60-5.80); Red Cell Distribution Width 18.6 % (11.0-16.0); White Blood Count 9.6 X10*3/uL (4.8-10.8)
[2022-09-13 06:19] LABS: Anion Gap 12 (12-20); Blood Urea Nitrogen 12 mg/dL (9-16); Calcium 7.8 mg/dL (8.4-10.2); Carbon Dioxide 24 mmol/L (22-29); Chloride 105 mmol/L (96-108); Creatinine Clr Calc Pharmacy 111.8; Estimated Glomerular Filt Rate > 60; Glucose Random 109 mg/dL (60-115); Sodium 137 mmol/L (135-145)
[2022-09-13] MEDS: Digoxin 0.125 MG TABLET PO (07:37)
[2022-09-13] MEDS: Furosemide 20 MG TABLET PO (07:37)
[2022-09-13] MEDS: Apixaban 5 MG TABLET PO ×2 (07:37→20:12)
[2022-09-13] MEDS: Folic Acid 1 MG TABLET PO (07:38)
[2022-09-13] MEDS: carvediloL 12.5 MG TABLET PO ×2 (07:38→20:12)
[2022-09-13] MEDS: PHENobarbitaL 15 MG TABLET 45 MG PO ×2 (07:38→20:13)
[2022-09-13] MEDS: Sacubitril/Valsartan 49/51 1 TAB TABLET PO ×2 (07:38→20:12)
[2022-09-13 07:43] VITALS: BP 142/87; PULSE 89; RESP 16; TEMP 36.5; O2SAT 93
[2022-09-13 08:48] VITALS: PULSE 89; O2SAT 93
--- NOTE | 2022-09-13 10:14 | HO.PM.IMPN ---
Subjective Subjective Date of Service: 09/13/22 Interval History: Seen in follow up for encephalopathy Interval history: Pt alert and oriented x4, denies any hallucinations in last 24 hours or so. He has good insight into the hallucinations he had been having and consciously evaluates situations to assess if they are grounded in reality. He still states he has only had one alcoholic beverage in the last week, though endorses history heavy etoh consumption. He also tells me he has similar reaction was was historically while taking tramadol and gabapentin and as a result these were discontinued. However the gabapentin resumed recently prior to the onset of his hallucinations. He is reporting pain in the lower legs. Dressings have not been changed. I attempted to remove dressing but was unable to do so and wound care and general surgery consulted. Started on abx for suspected cellulitis, WBC improved. He is also reporting anxiety. Has severe insomnia. Not sleeping for days at a time. Review of Systems General: No fevers, malaise, unintentional weight loss Cardiovascular: No chest pain, palpitations, or leg edema Respiratory: No shortness of breath, wheezing, cough GI: No abdominal pain, nausea, vomiting, diarrhea MSK: No myalgia, back pain, +pain BLE Neuro: No headaches, weakness, paresthesias Psych: +halluciinations, +insomnia Skin: No rashes. +chronic roberts ble Physical Exam Vital Signs: Vital Signs: Last Vital Signs Temp 97.7 F 09/13/22 07:43 Pulse 89 09/13/22 08:48 Resp 16 09/13/22 07:43 BP 142/87 H 09/13/22 07:43 Pulse Ox 93 09/13/22 08:48 O2 Del Method 09/13/22 07:43 BMI result Body Mass Index 25.0 Constitutional - Awake and Alert, No apparent distress Eyes - PERRLA, EOMI Cardiovascular - S1S2, RRR, No edema Respiratory - Normal lung expansion, Normal respiratory effort, No respiratory distress, CTA bilaterally Gastrointestinal - NT / ND; +BS; No rebound or guarding Extremities - no calf tenderness bilaterally, mild swelling BLE with faint erythema and warmth noted to lower legs B/L. Chronic non healing roberts to the lower legs covering majority anterior right lower leg and satellite roberts to posterios and lateral aspect of leg. Similar, but small burn to anterior left lower leg and left lateral malleolus. Roberts covered in conforming stretch bandage. Right leg contracted to >90 degrees. See photos Skin - Warm/Dry. Erythema, warmth BLE Neurological - Alert & oriented x3, CN II-XII in tact Psychological - Appropriate affect Objective Data Active Medications Acetaminophen (Acetaminophen 325 Mg Tablet) 650 mg PO Q6H PRN PRN Reason: Pain, Mild (Pain Scale 1-3) Last Admin: 09/13/22 05:25 Dose: 650 mg Documented By: EVANS Apixaban (Apixaban 5 Mg Tablet) 5 mg PO BID [facility] Last Admin: 09/13/22 07:37 Dose: 5 mg Documented By: ALFREDA Atorvastatin Calcium (Atorvastatin Calcium 40 Mg Tablet) 40 mg PO BEDTIME [facility] Last Admin: 09/12/22 21:17 Dose: 40 mg Documented By: BETO Carvedilol (Carvedilol 12.5 Mg Tablet) 12.5 mg PO BID [facility]; Protocol Last Admin: 09/13/22 07:38 Dose: 12.5 mg Documented By: ALFREDA Digoxin (Digoxin 0.125 Mg Tablet) 0.125 mg PO DAILY [facility] Last Admin: 09/13/22 07:37 Dose: 0.125 mg Documented By: ALFREDA Folic Acid (Folic Acid 1 Mg Tablet) 1 mg PO DAILY [facility] Last Admin: 09/13/22 07:38 Dose: 1 mg Documented By: ALFREDA Furosemide (Furosemide 20 Mg Tablet) 20 mg PO DAILY [facility]; Protocol Last Admin: 09/13/22 07:37 Dose: 20 mg Documented By: ALFREDA Haloperidol (Haloperidol 1 Mg Tablet) 2 mg PO Q6H PRN PRN Reason: aggitation/hallucination Last Admin: 09/11/22 17:20 Dose: 2 mg Documented By: TYLER Thiamine HCl 200 mg/ Sodium (Chloride) 102 mls @ 204 mls/hr IV Q8H [facility] Last Infusion: 09/13/22 07:39 Dose: 204 mls/hr Documented By: ALFREDA Cefepime HCl 2 gm/ Sodium (Chloride) 50 mls @ 100 mls/hr IV Q8H DUANE Last Infusion: 09/13/22 06:30 Dose: 0 mls/hr Documented By: EVANS Vancomycin HCl 1,000 mg/ (Sodium Chloride) 270 mls @ 270 mls/hr IV Q12H [facility] Last Infusion: 09/13/22 06:31 Dose: 0 mls/hr Documented By: EVANS Omeprazole (Omeprazole 40 Mg Capsule.Dr) 40 mg PO DAILY@0630 [facility] Last Admin: 09/13/22 05:25 Dose: 40 mg Documented By: EVANS Ondansetron HCl (Ondansetron Hcl 4 Mg/2 Ml Vial) 4 mg IVPUSH Q8H PRN PRN Reason: Nausea and Vomiting Pharmacy Consult (Consult Rx Perform Med Rec) 1 each MISCELLANE ONCE PRN PRN Reason: Consult order Pharmacy Consult (Consult Rx Etoh Phenob Im/Po) 1 each MISCELLANE ONCE PRN; Protocol PRN Reason: Consult order Pharmacy Consult (Consult Rx Vancomycin Dosing) 1 each MISCELLANE DAILY PRN PRN Reason: Consult order Phenobarbital (Phenobarbital 15 Mg Tablet) 45 mg PO BID [facility] Stop: 09/13/22 21:01 Last Admin: 09/13/22 07:38 Dose: 45 mg Documented By: ALFREDA Phenobarbital (Phenobarbital 30 Mg Tablet) 30 mg PO BID [facility] Stop: 09/15/22 21:01 Phenobarbital (Phenobarbital 15 Mg Tablet) 15 mg PO DAILY [facility] Stop: 09/17/22 09:01 Sacubitril/Valsartan (Sacubitril/Valsartan 49/51 1 Tab Tablet) 1 tab PO BID [facility]; Protocol Last Admin: 09/13/22 07:38 Dose: 1 tab Documented By: ALFREDA Sodium Chloride (0.9 % Sodium Chloride Flush 3 Ml Syringe) 3 ml IVFLUSH QSHIFT [facility] Last Admin: 09/13/22 07:39 Dose: Not Given Documented By: ALFREDA Non-Admin Reason: IV Running Trazodone HCl (Trazodone Hcl 50 Mg Tablet) 50 mg PO BEDTIME PRN PRN Reason: sleep Labs CBC & Chem 7: 09/13/22 05:17 09/13/22 05:17 Labs: Laboratory Results - last 24 hr 09/13/22 09/13/22 05:17 05:17 MCV 83.9 MCH 25.4 L MCHC 30.3 L RDW 18.6 H Plt Count 302 MPV 8.8 L Immature Gran % (Auto) 0.3 Neut % (Auto) 70.9 Lymph % (Auto) 16.9 L Upson % (Auto) 10.0 Eos % (Auto) 1.6 Baso % (Auto) 0.3 Lymph # (Auto) 1.6 Upson # (Auto) 1.0 Eos # (Auto) 0.2 Baso # (Auto) 0.0 Abs Immat Gran (auto) 0.03 Absolute Neuts (auto) 6.8 Absolute Nucleated RBC 0.020 H Nucleated RBC % (auto) 0.2 Anion Gap 12 Estim Creat Clear Calc 111.8 Estimated GFR > 60 Random Glucose 109 Calcium 7.8 L D Microbiology Microbiology Results: Microbiology 09/11/22 01:08 Blood Culture - Preliminary Blood - Venous No growth after 48 hours. 09/11/22 00:56 Blood Culture - Preliminary Blood - Venous No growth after 48 hours. Assessment and Plan (1) Encephalopathy: Status: Acute (2) Delirium due to multiple etiologies: Status: Acute (3) History of alcohol abuse: Status: Acute Plan ?61-year-old male with past medical history of AFib on digoxin, carvedilol as well as Eliquis, chronic roberts BLE, history of alcohol abuse presents to the hospital with complaints of hallucination #?Encephalopathy- most likely toxic related to gabapentin/tramadol/alochol vs metabolic though less likely infectious in etiology- improving -? Delerium/hallucinations evaluated by psych. Less likely Wernicke's -? has acute auditory and visual hallucinations- none in last 24 hours -? Continue IV abx for cellulitis below -? urine drug screen positive for opiates only. TSH normal - ?head CT negative -? hold gabapentin, as well as tramadol. - Resume trazodone as pt is not sleeping which could contribute to hallucinations - Continue high dose thiamine, folic acid per psych. Continue phenobarb protocol for possible withdrawal - Haldol 2mg q6h prn for hallucinations # Acute cellulitis BLE with chronic nonhealing roberts BLE - IV vanco, cefepime - Dressing changes per wound clinic note 09/06 - WBC trending down. No other SIRS criteria. - Monitor VS, follow CBC - XRays indeterminite fof osteo- MRI ordered -Seen by wound clinic provider recommending alginate dressing changes 3x weekly. Will work with wound clinic provider to try to get pt transferred to [facility] for inpt management of nonhealing roberts. Had been referred there but never seen due to transportation issues. Wound Clinic recommending he be admitted to Burn unit at [facility], cannot be managed by [facility] and [facility] has also recommended [place] given his contracture #? history of alcohol abuse -? Reports last etoh use was 1 week prior to arrival, however sister reports he is likely consuming etoh more frequently than he is admitting -? will place on CIWA - continue phenobarb- hallucinations could be manifestation of withdrawal #? acute on normocytic chronic anemia -? asymptomatic, H/H stable since admission - ?Stool occult blood negative. Vitamin B12 and folic acid normal -? no evidence of GI bleed -? follow CBC #? AFib- rate controlled -? Continue digoxin, carvedilol -? Eliquis resumed given stability of anemia -? Dig level 0.9 #? CHF with reduced ejection fraction -? not in exacerbation -? continue furosemide ?DVT prophylaxis: SCDs, on eliquis Pt reports ongoing inpt stay for management of acute encephalopathy with close monitoring of mental status with treatment for alcohol withdrawal with phenobarb, IV thiamine, as well as management of BLE cellulitis at risk for MRSA/VRE/pseudomonas Time Spent With Patient Time: Total time managing care of this patient today ____ minutes. Quality Stroke Does the patient have a stroke diagnosis?: No VTE Prior VTE?: No VTE Risk Level:: Medical - low VTE Device Contraindication: Treatment Not Indicated VTE Drug Contraindication: Treatment Not Indicated
[2022-09-13 11:32] LABS: Vancomycin Random 8.9 mcg/mL (15-20)
[2022-09-13 11:34] VITALS: BP 149/95; PULSE 83; RESP 16; TEMP 36.5
--- NOTE | 2022-09-13 11:43 | HE.PHANOTE ---
Vancomycin Dosing Addendum Patients level came back at 8.9 mg/L this morning. Suspect its lower because patient has only received load and 1 dose, patient is not at steady state. Will continue with 1000 mg Q12H for 2 more doses and get a level 09/14 @1100. Will assess renal function daily, patients renal function has remained stable the past two doses.
[2022-09-13] MEDS: hydrOXYzine HCL 25 MG TABLET PO (14:42)
[2022-09-13] MEDS: oxyCODONE HCl Immed Release 5 MG TABLET PO ×2 (14:42→20:10)
[2022-09-13 15:42] VITALS: BP 147/85; PULSE 95; RESP 18; TEMP 36.8; O2SAT 97
[2022-09-13 15:49] LABS: Ferritin 80 ng/mL (20-250); Iron 12 mcg/dL (45-160); Percent Iron Saturation 5 % (15-50); Total Iron Binding Capacity 249 mcg/dL (228-428); Unsaturated Iron Binding 237 ug/dL
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
[2022-09-13 19:47] VITALS: BP 135/89; PULSE 80; RESP 22; TEMP 36.7; O2SAT 99
[2022-09-13] MEDS: traZODone HCL 50 MG TABLET PO (20:12)
[2022-09-13] MEDS: Atorvastatin Calcium 40 MG TABLET PO (20:12)
--- NOTE | 2022-09-13 23:34 | PC.NURSE ---
Drsg changed to bilateral lower legs,old drsg soaked with sterile water for 1 hour,than removed,gently cleansed areas with sterile water,silver alginate drsg applied,kerlix on top and kerlix wrap ,patient tolerated it fairly well,was premedicated with Roxicodone.
[2022-09-14] VITALS (7 sets, daily range): BP systolic 135–159; BP diastolic 79–98; PULSE 69–102; RESP 17–20; TEMP 36.2–38; O2SAT 92–99
[2022-09-14] MEDS: oxyCODONE HCl Immed Release 5 MG TABLET PO ×3 (00:33→18:01)
[2022-09-14] MEDS: Acetaminophen 325 MG TABLET 650 MG PO ×2 (04:03→20:17)
[2022-09-14 06:26] LABS: MANUAL DIFF FLAG NO
[2022-09-14] MEDS: Omeprazole 40 MG CAPSULE.DR PO (06:26)
[2022-09-14 06:35] LABS: Basophils Absolute Auto 0.1 X10*3/uL (0.0-0.2); Basophils Percent Auto 0.6 % (0-2); Eosinophils Absolute Auto 0.1 X10*3/uL (0.0-0.4); Eosinophils Percent Auto 1.2 % (0-4); Hematocrit 24.2 % (42.0-52.0); Hemoglobin 7.2 g/dl (14.0-18.0); Imm Gran Abs Auto 0.07 X10*3/uL (0.00-0.03); Imm Gran Pct Auto 0.8 % (0.0-0.4); Lymphocytes Absolute Auto 1.4 X10*3/uL (1.2-4.9); Lymphocytes Percent Auto 15.5 % (20-40); Mean Corpuscular HGB Conc 29.8 g/dl (31.0-36.0); Mean Corpuscular Hemoglobin 25.4 pg (27.0-33.0); Mean Corpuscular Volume 85.5 fL (80.0-98.0); Mean Platelet Volume 9.5 fL (9.4-12.4); Monocytes Absolute Auto 1.1 X10*3/uL (0.1-1.2); Monocytes Percent Auto 12.2 % (2-11); NRBC Pct Auto 0.4 /100WBC (0.0-0.2); Neutrophils Absolute Auto 6.3 x10*3/uL (2.0-8.3); Neutrophils Percent Auto 69.7 % (45-73); Platelet Count 336 X10*3/uL (160-400); Red Blood Count 2.83 X10*6/uL (4.60-5.80); Red Cell Distribution Width 18.4 % (11.0-16.0)
[2022-09-14 07:14] LABS: Anion Gap 11 (12-20); Blood Urea Nitrogen 14 mg/dL (9-16); Calcium 7.7 mg/dL (8.4-10.2); Carbon Dioxide 25 mmol/L (22-29); Chloride 103 mmol/L (96-108); Creatinine Clr Calc Pharmacy 99.4; Estimated Glomerular Filt Rate > 60; Glucose Random 100 mg/dL (60-115); Potassium 4.3 mmol/L (3.3-5.1); Sodium 135 mmol/L (135-145)
[2022-09-14 07:48] LABS: Immature Retic Fraction 36.3 % (2.3-13.4); Retic HGB Equivalent 23.5 pg (30.0-35.0); Reticulocytes Absolute 0.056 X10*6/uL (0.026-0.095)
[2022-09-14 07:55] LABS: Lactate Dehydrogenase 223 U/L (118-273)
[2022-09-14] MEDS: carvediloL 12.5 MG TABLET PO ×2 (09:24→20:16)
[2022-09-14] MEDS: Ferrous Sulfate 324 MG TABLET.DR PO (09:25)
[2022-09-14] MEDS: Ascorbic Acid 250 MG TABLET PO (09:25)
[2022-09-14] MEDS: Folic Acid 1 MG TABLET PO (09:25)
[2022-09-14] MEDS: Sacubitril/Valsartan 49/51 1 TAB TABLET PO ×2 (09:26→20:17)
[2022-09-14] MEDS: PHENobarbitaL 30 MG TABLET PO ×2 (09:26→20:16)
[2022-09-14] MEDS: Furosemide 20 MG TABLET PO (09:26)
[2022-09-14] MEDS: Apixaban 5 MG TABLET PO (09:26)
[2022-09-14] MEDS: Digoxin 0.125 MG TABLET PO (09:27)
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
[2022-09-14 11:20] LABS: Vancomycin Random 11.6 mcg/mL (15-20)
--- NOTE | 2022-09-14 11:33 | HO.PM.IMPN ---
Subjective Subjective Date of Service: 09/14/22 Interval History: Seen in follow up for encephalopathy Interval history: Pt alert and oriented x4, denies any hallucinations in last 48 hours. Continues to have good insight into/awareness of the hallucinations he experienced. BLE dressings changed yesterday. Still with pain BLE. Wound care consulted, recommending transfer to [facility] Burn Unit for inpt stay. Trazodone resumed, pt slept through the night without recurrence of hallucinations. Review of Systems General: No fevers, malaise, unintentional weight loss Cardiovascular: No chest pain, palpitations, or leg edema Respiratory: No shortness of breath, wheezing, cough GI: No abdominal pain, nausea, vomiting, diarrhea MSK: No myalgia, back pain, +pain BLE Neuro: No headaches, weakness, paresthesias Psych: No AH/VH Skin: No rashes. +chronic roberts ble Physical Exam Vital Signs: Vital Signs: Last Vital Signs Temp 99.6 F 09/14/22 07:54 Pulse 102 H 09/14/22 07:54 Resp 18 09/14/22 07:54 BP 140/83 H 09/14/22 07:54 Pulse Ox 92 09/14/22 07:54 O2 Del Method 09/14/22 07:54 BMI result Body Mass Index 25.0 Constitutional - Awake and Alert, No apparent distress Eyes - PERRLA, EOMI Cardiovascular - S1S2, RRR, No edema Respiratory - Normal lung expansion, Normal respiratory effort, No respiratory distress, CTA bilaterally Gastrointestinal - NT / ND; +BS; No rebound or guarding Extremities - no calf tenderness bilaterally, BLE roberts covered in clean, dry dressing Neurological - Alert & oriented x3, CN II-XII in tact Psychological - Appropriate affect Objective Data Active Medications Acetaminophen (Acetaminophen 325 Mg Tablet) 650 mg PO Q6H PRN PRN Reason: Pain, Mild (Pain Scale 1-3) Last Admin: 09/14/22 04:03 Dose: 650 mg Documented By: LANDRY Apixaban (Apixaban 5 Mg Tablet) 5 mg PO BID [facility] Last Admin: 09/14/22 09:26 Dose: 5 mg Documented By: TIFFANIE Ascorbic Acid (Ascorbic Acid 250 Mg Tablet) 250 mg PO DAILY [facility] Last Admin: 09/14/22 09:25 Dose: 250 mg Documented By: TIFFANIE Atorvastatin Calcium (Atorvastatin Calcium 40 Mg Tablet) 40 mg PO BEDTIME [facility] Last Admin: 09/13/22 20:12 Dose: 40 mg Documented By: POLY Carvedilol (Carvedilol 12.5 Mg Tablet) 12.5 mg PO BID [facility]; Protocol Last Admin: 09/14/22 09:24 Dose: 12.5 mg Documented By: TIFFANIE Digoxin (Digoxin 0.125 Mg Tablet) 0.125 mg PO DAILY [facility] Last Admin: 09/14/22 09:27 Dose: 0.125 mg Documented By: TIFFANIE Ferrous Sulfate (Ferrous Sulfate 324 Mg Tablet.) 324 mg PO DAILY [facility] Last Admin: 09/14/22 09:25 Dose: 324 mg Documented By: TIFFANIE Folic Acid (Folic Acid 1 Mg Tablet) 1 mg PO DAILY [facility] Last Admin: 09/14/22 09:25 Dose: 1 mg Documented By: TIFFANIE Furosemide (Furosemide 20 Mg Tablet) 20 mg PO DAILY [facility]; Protocol Last Admin: 09/14/22 09:26 Dose: 20 mg Documented By: TIFFANIE Haloperidol (Haloperidol 1 Mg Tablet) 2 mg PO Q6H PRN PRN Reason: aggitation/hallucination Last Admin: 09/11/22 17:20 Dose: 2 mg Documented By: TYLER Hydroxyzine HCl (Hydroxyzine Hcl 25 Mg Tablet) 25 mg PO Q6H PRN PRN Reason: Anxiety Last Admin: 09/13/22 14:42 Dose: 25 mg Documented By: ALFREDA Thiamine HCl 200 mg/ Sodium (Chloride) 102 mls @ 204 mls/hr IV Q8H [facility] Last Infusion: 09/14/22 07:10 Dose: 0 mls/hr Documented By: LANDRY Cefepime HCl 2 gm/ Sodium (Chloride) 50 mls @ 100 mls/hr IV Q8H [facility] Last Infusion: 09/14/22 04:38 Dose: 0 mls/hr Documented By: LANDRY Vancomycin HCl 1,000 mg/ (Sodium Chloride) 270 mls @ 270 mls/hr IV Q12H [facility] Last Infusion: 09/14/22 01:46 Dose: 0 mls/hr Documented By: LANDRY Omeprazole (Omeprazole 40 Mg Capsule.) 40 mg PO DAILY@0630 [facility] Last Admin: 09/14/22 06:26 Dose: 40 mg Documented By: LANDRY Ondansetron HCl (Ondansetron Hcl 4 Mg/2 Ml Vial) 4 mg IVPUSH Q8H PRN PRN Reason: Nausea and Vomiting Oxycodone HCl (Oxycodone Hcl Immed Release 5 Mg Tablet) 5 mg PO Q4H PRN PRN Reason: Pain, Severe (Pain Scale 7-10) Last Admin: 09/14/22 06:27 Dose: 5 mg Documented By: LANDRY Pharmacy Consult (Consult Rx Perform Med Rec) 1 each MISCELLANE ONCE PRN PRN Reason: Consult order Pharmacy Consult (Consult Rx Etoh Phenob Im/Po) 1 each MISCELLANE ONCE PRN; Protocol PRN Reason: Consult order Pharmacy Consult (Consult Rx Vancomycin Dosing) 1 each MISCELLANE DAILY PRN PRN Reason: Consult order Phenobarbital (Phenobarbital 30 Mg Tablet) 30 mg PO BID [facility] Stop: 09/15/22 21:01 Last Admin: 09/14/22 09:26 Dose: 30 mg Documented By: TIFFANIE Phenobarbital (Phenobarbital 15 Mg Tablet) 15 mg PO DAILY [facility] Stop: 09/17/22 09:01 Sacubitril/Valsartan (Sacubitril/Valsartan 49/51 1 Tab Tablet) 1 tab PO BID [facility]; Protocol Last Admin: 09/14/22 09:26 Dose: 1 tab Documented By: TIFFANIE Sodium Chloride (0.9 % Sodium Chloride Flush 3 Ml Syringe) 3 ml IVFLUSH QSHIFT [facility] Last Admin: 09/14/22 09:27 Dose: 3 ml Documented By: TIFFANIE Trazodone HCl (Trazodone Hcl 50 Mg Tablet) 50 mg PO BEDTIME [facility] Last Admin: 09/13/22 20:12 Dose: 50 mg Documented By: POLY Labs CBC & Chem 7: 09/14/22 05:02 09/14/22 05:02 Labs: Laboratory Results - last 24 hr 09/13/22 09/14/22 09/14/22 05:17 05:02 05:02 MCV 85.5 MCH 25.4 L MCHC 29.8 L RDW 18.4 H Plt Count 336 MPV 9.5 Immature Gran % (Auto) 0.8 H Neut % (Auto) 69.7 Lymph % (Auto) 15.5 L [place] % (Auto) 12.2 H Eos % (Auto) 1.2 Baso % (Auto) 0.6 Lymph # (Auto) 1.4 [place] # (Auto) 1.1 Eos # (Auto) 0.1 Baso # (Auto) 0.1 Abs Immat Gran (auto) 0.07 H Absolute Neuts (auto) 6.3 Absolute Nucleated RBC 0.040 H Nucleated RBC % (auto) 0.4 H Absolute Retic 0.056 Percent Retic 2.0 H Immature Retic Fraction 36.3 H Retic Hgb Equivalent 23.5 L Anion Gap 11 L Estim Creat Clear Calc 99.4 Estimated GFR > 60 Random Glucose 100 Calcium 7.7 L Iron 12 L TIBC 249 % Saturation 5 L Unsat Iron Binding 237 Ferritin 80 Lactate Dehydrogenase 223 Random Vancomycin 09/14/22 10:46 MCV MCH MCHC RDW Plt Count MPV Immature Gran % (Auto) Neut % (Auto) Lymph % (Auto) Valencia % (Auto) Eos % (Auto) Baso % (Auto) Lymph # (Auto) Valencia # (Auto) Eos # (Auto) Baso # (Auto) Abs Immat Gran (auto) Absolute Neuts (auto) Absolute Nucleated RBC Nucleated RBC % (auto) Absolute Retic Percent Retic Immature Retic Fraction Retic Hgb Equivalent Anion Gap Estim Creat Clear Calc Estimated GFR Random Glucose Calcium Iron TIBC % Saturation Unsat Iron Binding Ferritin Lactate Dehydrogenase Random Vancomycin 11.6 L Assessment and Plan (1) Encephalopathy: Status: Acute (2) Delirium due to multiple etiologies: Status: Acute (3) History of alcohol abuse: Status: Acute Plan ?61-year-old male with past medical history of AFib on digoxin, carvedilol as well as Eliquis, chronic roberts BLE, history of alcohol abuse presents to the hospital with complaints of hallucination #?Encephalopathy- likely multifactorial- most like toxic metabolic from alcohol, gabapentin. Less likely infectious in etiology -? No hallucinations in last 48 hours -? Continue holding gabapentin - Continue phenobarb for alcohol withdrawal - Trazodone resumed as pt is not sleeping which could contribute to hallucinations - Change IV thiamine to PO daily, continue folic acid - Haldol 2mg q6h prn for hallucinations # Acute cellulitis BLE with chronic nonhealing roberts BLE - IV vanco, cefepime - Dressing changes per wound clinic note 09/06 - WBC trending down. No other SIRS criteria. - Monitor VS, follow CBC - XRays indeterminite fof osteo- CT legs B/l to rule out osteo -Seen by wound clinic provider recommending alginate dressing changes 3x weekly. Will work with wound clinic provider to try to get pt transferred to [facility] for inpt management of nonhealing roberts. Had been referred there but never seen due to transportation issues. Wound Clinic recommending he be admitted to Burn unit at [facility], cannot be managed by [facility] and [facility] has also recommended [place] given his contracture #? history of alcohol abuse -? Reports last etoh use was 1 week prior to arrival, however sister reports he is likely consuming etoh more frequently than he is admitting -? will place on CIWA - continue phenobarb- hallucinations could be manifestation of withdrawal #? acute on normocytic chronic anemia -? asymptomatic, H/H continues to steadily drop, now 7.2/24.2% - ?Stool occult blood negative. Vitamin B12 and folic acid normal. Iron deficiency - Hold eliquis - Iron supplement daily -?Repeat stool occult - GI consulted -?follow CBC #? AFib- rate controlled -? Continue digoxin, carvedilol -? Hold eliquis given persistent anemia -? Dig level 0.9 #? CHF with reduced ejection fraction -? not in exacerbation -? continue furosemide ?DVT prophylaxis: SCDs, on eliquis Pt reports ongoing inpt stay for management of acute encephalopathy with close monitoring of mental status with treatment for alcohol withdrawal with phenobarb, IV thiamine, as well as management of BLE cellulitis at risk for MRSA/VRE/pseudomonas requiring transfer to burn unit at [facility] upon completion of phenobarb protocol Time Spent With Patient Time: Total time managing care of this patient today ____ minutes. Quality Stroke Does the patient have a stroke diagnosis?: No VTE Prior VTE?: No VTE Risk Level:: Medical - low VTE Device Contraindication: Treatment Not Indicated VTE Drug Contraindication: Treatment Not Indicated
--- NOTE | 2022-09-14 13:52 | MHC.CLN ---
F/U PO INTAKE 75-100% DIET RX: REGULAR-APPROPRIATE PT RECEIVING ENSURE BID PROVIDES 700KCALS, 40G PROTEIN NOTED STAGE 2 [address]ANGES TO STAGE [address] TO FOLLOW X7 DAYS
[2022-09-14 16:13] LABS: C Reactive Protein 6.61 mg/dL (< or = 0.50)
[2022-09-14 16:51] LABS: Erythrocyte Sedimentation Rate 39 MM/HR (0-15)
--- NOTE | 2022-09-14 17:21 | PM.EVENT ---
Event Note Date of Service: 09/14/22 Event Note: Addiction consult: Please see Recovery Support RN note Time Spent With Patient Time: Total time managing care of this patient today ____ minutes.
[2022-09-14] MEDS: iohexoL 350 MG/ML 100 ML INFUS..BTL IV (17:33)
[2022-09-14] MEDS: Atorvastatin Calcium 40 MG TABLET PO (20:17)
[2022-09-14] MEDS: traZODone HCL 50 MG TABLET PO (20:17)
[2022-09-15 03:32] VITALS: BP 168/88; PULSE 80; RESP 18; TEMP 37.2; O2SAT 97
[2022-09-15] MEDS: oxyCODONE HCl Immed Release 5 MG TABLET PO ×4 (04:59→23:52)
[2022-09-15] MEDS: Omeprazole 40 MG CAPSULE.DR PO (05:01)
[2022-09-15 06:06] LABS: MANUAL DIFF FLAG NO
[2022-09-15 06:41] LABS: Anion Gap 11 (12-20); Basophils Percent Auto 0.5 % (0-2); Blood Urea Nitrogen 8 mg/dL (9-16); Calcium 7.8 mg/dL (8.4-10.2); Carbon Dioxide 28 mmol/L (22-29); Chloride 104 mmol/L (96-108); Creatinine Clr Calc Pharmacy 103.7; Eosinophils Absolute Auto 0.1 X10*3/uL (0.0-0.4); Eosinophils Percent Auto 1.7 % (0-4); Estimated Glomerular Filt Rate > 60; Glucose Random 112 mg/dL (60-115); Hemoglobin 7.2 g/dl (14.0-18.0); Imm Gran Abs Auto 0.04 X10*3/uL (0.00-0.03); Imm Gran Pct Auto 0.5 % (0.0-0.4); Lymphocytes Absolute Auto 1.3 X10*3/uL (1.2-4.9); Lymphocytes Percent Auto 17.5 % (20-40); Mean Corpuscular Hemoglobin 25.6 pg (27.0-33.0); Mean Corpuscular Volume 85.4 fL (80.0-98.0); Monocytes Percent Auto 12.9 % (2-11); NRBC Pct Auto 0.4 /100WBC (0.0-0.2); Neutrophils Percent Auto 66.9 % (45-73); Platelet Count 344 X10*3/uL (160-400); Potassium 4.1 mmol/L (3.3-5.1); Red Blood Count 2.81 X10*6/uL (4.60-5.80); Red Cell Distribution Width 18.5 % (11.0-16.0); Sodium 139 mmol/L (135-145); White Blood Count 7.4 X10*3/uL (4.8-10.8)
[2022-09-15 08:00] VITALS: BP 168/96; PULSE 82; RESP 18; TEMP 36.4; O2SAT 99
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
[2022-09-15] MEDS: PHENobarbitaL 30 MG TABLET PO ×2 (08:50→20:24)
[2022-09-15] MEDS: Furosemide 20 MG TABLET PO (08:50)
[2022-09-15] MEDS: Folic Acid 1 MG TABLET PO (08:50)
[2022-09-15] MEDS: Digoxin 0.125 MG TABLET PO (08:50)
[2022-09-15] MEDS: Ferrous Sulfate 324 MG TABLET.DR PO (08:50)
[2022-09-15] MEDS: Ascorbic Acid 250 MG TABLET PO (08:50)
[2022-09-15] MEDS: carvediloL 12.5 MG TABLET PO ×2 (08:51→20:24)
[2022-09-15] MEDS: amLODIPine Besylate 5 MG TABLET PO (08:51)
[2022-09-15] MEDS: Sacubitril/Valsartan 49/51 1 TAB TABLET PO ×2 (08:51→20:24)
[2022-09-15] MEDS: Thiamine HCL 100 MG TABLET PO (08:51)
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
[2022-09-15 10:36] LABS: Vancomycin Trough 11.4 mcg/mL (10.0-20.0)
[2022-09-15 12:00] VITALS: BP 151/82; PULSE 87; RESP 18; TEMP 36.7; O2SAT 97
[2022-09-15] MEDS: vancomycin HCL 1,250 MG in 0.9 % Sodium Chloride 250 ML 166.67 MG IV (13:35)
[2022-09-15] MEDS: Acetaminophen 325 MG TABLET 650 MG PO ×2 (14:38→17:52)
[2022-09-15 15:23] VITALS: PULSE 87; O2SAT 97
[2022-09-15 16:00] VITALS: BP 164/80; PULSE 85; RESP 16; TEMP 36.9; O2SAT 98
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
[2022-09-15 19:50] VITALS: BP 149/95; PULSE 80; RESP 18; TEMP 37.1; O2SAT 98
[2022-09-15] MEDS: traZODone HCL 50 MG TABLET PO (20:24)
[2022-09-15] MEDS: Atorvastatin Calcium 40 MG TABLET PO (20:24)
[2022-09-15] MEDS: Apixaban 5 MG TABLET PO (20:24)
[2022-09-16] VITALS: BP 150/72; PULSE 83; RESP 18; TEMP 37.2; O2SAT 97
[2022-09-16] MEDS: vancomycin HCL 1,250 MG in 0.9 % Sodium Chloride 250 ML 166.67 MG IV (00:01)
[2022-09-16 03:45] VITALS: BP 138/82; PULSE 70; RESP 18; TEMP 37; O2SAT 97
[2022-09-16] MEDS: oxyCODONE HCl Immed Release 5 MG TABLET PO ×2 (03:47→11:47)
[2022-09-16] MEDS: Omeprazole 40 MG CAPSULE.DR PO (05:23)
[2022-09-16 05:29] LABS: MANUAL DIFF FLAG NO
[2022-09-16 05:33] LABS: Basophils Absolute Auto 0.1 X10*3/uL (0.0-0.2); Basophils Percent Auto 0.7 % (0-2); Eosinophils Absolute Auto 0.2 X10*3/uL (0.0-0.4); Eosinophils Percent Auto 2.1 % (0-4); Hematocrit 24.9 % (42.0-52.0); Hemoglobin 7.4 g/dl (14.0-18.0); Imm Gran Abs Auto 0.03 X10*3/uL (0.00-0.03); Imm Gran Pct Auto 0.4 % (0.0-0.4); Lymphocytes Absolute Auto 1.2 X10*3/uL (1.2-4.9); Lymphocytes Percent Auto 14.7 % (20-40); Mean Corpuscular HGB Conc 29.7 g/dl (31.0-36.0); Mean Corpuscular Hemoglobin 25.1 pg (27.0-33.0); Mean Corpuscular Volume 84.4 fL (80.0-98.0); Mean Platelet Volume 8.9 fL (9.4-12.4); Monocytes Percent Auto 12.2 % (2-11); NRBC Pct Auto 0.2 /100WBC (0.0-0.2); Neutrophils Absolute Auto 5.6 x10*3/uL (2.0-8.3); Neutrophils Percent Auto 69.9 % (45-73); Platelet Count 379 X10*3/uL (160-400); Red Blood Count 2.95 X10*6/uL (4.60-5.80); Red Cell Distribution Width 18.3 % (11.0-16.0); White Blood Count 8.1 X10*3/uL (4.8-10.8)
[2022-09-16 06:15] LABS: Anion Gap 10 (12-20); Blood Urea Nitrogen 8 mg/dL (9-16); Carbon Dioxide 31 mmol/L (22-29); Chloride 100 mmol/L (96-108); Creatinine Clr Calc Pharmacy 103.7; Estimated Glomerular Filt Rate > 60; Glucose Random 97 mg/dL (60-115); Potassium 3.9 mmol/L (3.3-5.1); Sodium 137 mmol/L (135-145)
[2022-09-16 08:00] VITALS: BP 136/63; PULSE 85; RESP 18; TEMP 36.9; O2SAT 97
[2022-09-16] MEDS: Ferrous Sulfate 324 MG TABLET.DR PO (09:08)
[2022-09-16] MEDS: Furosemide 20 MG TABLET PO (09:08)
[2022-09-16] MEDS: carvediloL 12.5 MG TABLET PO (09:08)
[2022-09-16] MEDS: Folic Acid 1 MG TABLET PO (09:08)
[2022-09-16] MEDS: Sacubitril/Valsartan 49/51 1 TAB TABLET PO (09:08)
[2022-09-16] MEDS: amLODIPine Besylate 5 MG TABLET PO (09:08)
[2022-09-16] MEDS: Apixaban 5 MG TABLET PO (09:08)
[2022-09-16] MEDS: Digoxin 0.125 MG TABLET PO (09:08)
[2022-09-16] MEDS: Ascorbic Acid 250 MG TABLET PO (09:08)
[2022-09-16] MEDS: Thiamine HCL 100 MG TABLET PO (09:08)
[2022-09-16] MEDS: PHENobarbitaL 15 MG TABLET PO (09:08)
[2022-09-16 11:26] LABS: Influenza A PCR NEGATIVE (Negative); Influenza B PCR NEGATIVE (Negative); Resp Syncy Virus RNA Qual PCR NEGATIVE (Negative); SARS COV2 PCR INHOUSE NEGATIVE (Negative)
[2022-09-16 11:39] VITALS: BP 138/63; PULSE 82; RESP 18; TEMP 36.8; O2SAT 92
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
[2022-09-16] MEDS: Acetaminophen 325 MG TABLET 650 MG PO (11:47)
[2022-09-16 11:55] VITALS: BP 138/63; PULSE 82; RESP 18; TEMP 36.8
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
[2022-09-16 12:10] VITALS: BP 118/59; PULSE 81; RESP 18; TEMP 37.1
[2022-09-16 12:24] LABS: Vancomycin Trough 13.1 mcg/mL (10.0-20.0)
--- NOTE | 2022-09-20 10:45 | PC.NURSE ---
Pt transferred to [place] [address] [facility] on 09/16/2022. Pt transferred by [facility] ambulance ALS crew with 1 unit PRBC running. Transfusion paperwork sent with patient including time hung, and 15 minute vitals and no adverse reactions. RN to RN report given and receiving RN aware pt to be transferred with 1 unit PRBC running. Hand off given to [facility] personnel. Pt AOx3.
== END 2022-09-16 13:55 | disposition short-term general hospital (02) | DRG 383 ==
LOC: HO.ED 09-11 02:35 → HO.EDOVER 09-11 07:01 → HO.IMC 09-11 14:41 → HO.EDOVER 09-12 14:55 → HO.IMC 09-12 14:55 → HO.S3 09-12 23:27
PROVIDERS: Physician Assistant; Physician Assistant Medical; Admitting Provider Internal Medicine; Emergency Provider Emergency Medicine; PCP Nurse Practitioner Family; Visit Provider Student in an Organized Health Care Education/Training Program
DX: L03.115 Cellulitis of right lower limb (principal); G92.8 Other toxic encephalopathy; F10.231 Alcohol dependence with withdrawal delirium; T24.302A Burn of third degree of unspecified site of left lower limb, except ankle and foot, initial encounter; I50.22 Chronic systolic (congestive) heart failure; D63.8 Anemia in other chronic diseases classified elsewhere; T24.391A Burn of third degree of multiple sites of right lower limb, except ankle and foot, initial encounter; D64.9 Anemia, unspecified; W39.XXXA Discharge of firework, initial encounter; L03.116 Cellulitis of left lower limb; Z20.822 Contact with and (suspected) exposure to COVID-19; F17.210 Nicotine dependence, cigarettes, uncomplicated; Z71.6 Tobacco abuse counseling; Z79.01 Long term (current) use of anticoagulants; Z79.899 Other long term (current) drug therapy
CPT/HCPCS: 0241U; 36415; 70450; 71045; 73590; 73701; 80048; 80076; 80162; 80202; 80307; 81003; 82272; 82607; 82728; 82746; 83540; 83605; 83615; 83690; 83880; 84443; 84484; 85025; 85045; 85652; 86140; 86850; 86900; 86901; 86923; 87040; 87635; 93005; 97162; 97530; 99218; 99285; J0692; J2270; J2560; J3370; J3411; P9016; Q9967

== ENCOUNTER 2022-11-09 11:56 | Outpatient (RCR) | payer OTHER, MEDICAID, SELFPAY | END 2023-03-13 16:00 | disposition home or self-care (01) | LOC: HO.WCC 11:56 | PROVIDERS: PCP Nurse Practitioner Family; Visit Provider Surgery | DX: I70.233 Atherosclerosis of native arteries of right leg with ulceration of ankle (principal); L89.519 Pressure ulcer of right ankle, unspecified stage; L97.813 Non-pressure chronic ulcer of other part of right lower leg with necrosis of muscle; L89.619 Pressure ulcer of right heel, unspecified stage; L97.822 Non-pressure chronic ulcer of other part of left lower leg with fat layer exposed; L89.312 Pressure ulcer of right buttock, stage 2; T24.002D Burn of unspecified degree of unspecified site of left lower limb, except ankle and foot, subsequent encounter; T25.012D Burn of unspecified degree of left ankle, subsequent encounter; T24.001D Burn of unspecified degree of unspecified site of right lower limb, except ankle and foot, subsequent encounter; T81.31XD Disruption of external operation (surgical) wound, not elsewhere classified, subsequent encounter; I70.238 Atherosclerosis of native arteries of right leg with ulceration of other part of lower leg; I70.234 Atherosclerosis of native arteries of right leg with ulceration of heel and midfoot; I70.262 Atherosclerosis of native arteries of extremities with gangrene, left leg; T31.0 Burns involving less than 10% of body surface; F17.210 Nicotine dependence, cigarettes, uncomplicated; I10 Essential (primary) hypertension; Z79.01 Long term (current) use of anticoagulants; Z79.899 Other long term (current) drug therapy | CPT/HCPCS: 11042; 11043; 11045; 11046; 16030; 99215 ==

== ENCOUNTER 2022-11-15 05:56 | Emergency (ER) | payer OTHER, MEDICAID, SELFPAY ==
--- NOTE | 2022-11-15 | ECG_ITS ---
Test Reason : arrhythmia Blood Pressure : / mmHG Vent. Rate : 124 BPM Atrial Rate : 000 BPM P-R Int : 000 ms QRS Dur : 138 ms QT Int : 338 ms P-R-T Axes : 000 033 042 degrees QTc Int : 485 ms Atrial fibrillation with rapid ventricular response Right bundle branch block Inferior infarct (cited on or before 24-JUL-2021) Abnormal ECG When compared with ECG of 10-SEP-2022 23:54, No significant change was found Referred By: Generic ED Physician Electronically Signed By:TORSTEN BAER MD
--- NOTE | ~2022-11-15 | XR_ITS ---
EXAMINATION: XR CHEST CLINICAL INFORMATION: Confusion and weakness. Rule out pneumonia. COMPARISON: 09/11/2022 TECHNIQUE: Portable AP semiupright view of the chest was obtained. FINDINGS: The chest radiograph is rotated with the chin overlying the upper right chest limiting assessment. Overlying EKG leads. The cardiac silhouette is slightly prominent but this may be related to technical factors. Mild increase in perihilar markings without dominant consolidation or pleural effusion seen. No pneumothorax. No visible pleural effusion. XR/XR chest 1V IMPRESSION: 1. Slightly limited evaluation due to rotation. 2. Mild increase in perihilar markings without dominant consolidation or pleural effusion. No pneumothorax.
--- NOTE | ~2022-11-15 | CT_ITS ---
EXAMINATION: CT HEAD WITHOUT CONTRAST CLINICAL INFORMATION: Head injury. Evaluate for bleed. Fall on Eliquis. COMPARISON: None TECHNIQUE: Contiguous axial imaging was performed from the skull base to vertex without intravenous administration of contrast. This CT examination was performed using dose optimization techniques as appropriate, variously including the following: *Automated exposure control *Adjustment of mA and/or kV according to patient size (this includes techniques or standardized protocols for targeted exams where dose is matched to indication/reason for exam; i.e. extremities or head) *Use of iterative reconstruction technique DLP: 967 mGy-cm FINDINGS: The patient was moving on the initial scan and some of the images were repeated. No evidence of intracranial hemorrhage, extra-axial fluid collection, focal mass effect or midline shift. There are changes of chronic mild microangiopathy affecting the supratentorial white matter. Chronic parenchymal volume loss with commensurate prominence of ventricles and sulci; no hydrocephalus. The [place]-white matter differentiation is maintained. The calvarium is intact. Chronic left mastoid effusion is present. Mucous retention cyst of the anterior wall of the left maxillary sinus and minimal mucosal thickening of the partially visualized right maxillary sinus. Minimal mucosal thickening of right sphenoid sinus. The temporomandibular joints and orbits are unremarkable. Small right frontal scalp hematoma has a thickness of 0.[address]/CT head/brain wo IV con IMPRESSION: * Small right frontal scalp hematoma is present. No calvarial fracture. * No acute intracranial pathology compared to 09/11/2022.
[2022-11-15 06:03] VITALS: BP 139/91; BP 146/58; PULSE 118; PULSE 88; RESP 20; TEMP 36.8; O2SAT 92; O2SAT 99; BMI 24.3
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
[2022-11-15] MEDS: 0.9 % Sodium Chloride 1,000 ML 999 ML IV (07:08)
[2022-11-15 07:10] LABS: MANUAL DIFF FLAG NO
[2022-11-15 07:14] LABS: Basophils Absolute Auto 0.1 X10*3/uL (0.0-0.2); Basophils Percent Auto 0.6 % (0-2); Eosinophils Absolute Auto 0.1 X10*3/uL (0.0-0.4); Eosinophils Percent Auto 1.2 % (0-4); Hematocrit 29.9 % (42.0-52.0); Hemoglobin 9.5 g/dl (14.0-18.0); Imm Gran Abs Auto 0.04 X10*3/uL (0.00-0.03); Imm Gran Pct Auto 0.4 % (0.0-0.4); Lymphocytes Absolute Auto 1.5 X10*3/uL (1.2-4.9); Lymphocytes Percent Auto 14.8 % (20-40); Mean Corpuscular HGB Conc 31.8 g/dl (31.0-36.0); Mean Corpuscular Hemoglobin 26.4 pg (27.0-33.0); Mean Corpuscular Volume 83.1 fL (80.0-98.0); Monocytes Absolute Auto 0.9 X10*3/uL (0.1-1.2); Monocytes Percent Auto 9.5 % (2-11); Neutrophils Absolute Auto 7.3 x10*3/uL (2.0-8.3); Neutrophils Percent Auto 73.5 % (45-73); Platelet Count 323 X10*3/uL (160-400); Red Cell Distribution Width 16.7 % (11.0-16.0); White Blood Count 9.9 X10*3/uL (4.8-10.8)
[2022-11-15] MEDS: dilTIAZem HCL 50 MG/10 ML VIAL 20 MG IVPUSH ×2 (07:14→09:10)
[2022-11-15 07:23] LABS: Lactic Acid 1.9 mmol/L (0.5-2.0)
[2022-11-15 07:30] LABS: Alanine Aminotransferase 6 U/L (0-40); Albumin Level 3.3 g/dL (3.5-5.0); Alkaline Phosphatase 64 U/L (39-117); Anion Gap 15 (12-20); Aspartate Amino Transferase 31 U/L (5-37); Bilirubin Total 0.6 mg/dL (0.0-1.0); Blood Urea Nitrogen 12 mg/dL (9-16); Calcium 8.5 mg/dL (8.4-10.2); Carbon Dioxide 22 mmol/L (22-29); Chloride 98 mmol/L (96-108); Creatinine Clr Calc Pharmacy 92.9; Estimated Glomerular Filt Rate > 60; Ethanol < 10 mg/dL; Glucose Random 93 mg/dL (60-115); Lipase 8 U/L (8-78); Potassium 4.3 mmol/L (3.3-5.1); Sodium 131 mmol/L (135-145); Total Protein 6.3 g/dL (6.5-8.0)
[2022-11-15 07:34] VITALS: BP 130/91; PULSE 129; RESP 18; O2SAT 94
[2022-11-15 07:41] LABS: Troponin-I High Sensitivity 7.8 ng/L (<3.5-35.0)
[2022-11-15 07:52] LABS: COVID-19 Test Negative (Negative); IDNOW Serial# 16C4AD1C
[2022-11-15 07:52] LABS: IDNOW Serial# BCCEAD1C; Influenza A Negative (Negative); Influenza B2 Negative (Negative)
[2022-11-15 07:54] LABS: Digoxin 0.5 ng/mL (0.8-2.0)
[2022-11-15 08:00] LABS: INTERNATIONAL NORM RATIO 1.2 (0.9-1.1); Prothrombin Time 13.7 SEC (10.0-13.1)
[2022-11-15 08:03] LABS: Partial Thromboplastin Time 39.5 SEC (26.0-36.4)
--- NOTE | 2022-11-15 08:34 | PC.NURSE ---
Pt alert to place and self, occasionally speaking with no one at bedside. Second IV established, at CT scan at this time.
--- NOTE | 2022-11-15 09:05 | PC.NURSE ---
Pt resting in bed with HR from 120's-140's.
[2022-11-15 09:14] VITALS: BP 149/88; PULSE 88; RESP 24; O2SAT 96
[2022-11-15 09:51] LABS: Amphetamine Screen Urine Not Detected (Not Detect); Barbiturates, Urine Not Detected (Not Detect); Benzodiazepines Screen Urine Not Detected (Not Detect); Cannabinoid Screen Urine POSITIVE (Not Detect); Cocaine Screen Urine Not Detected (Not Detect); Fentanyl, urine Not Detected (Not Detect); Opiate Screen Urine Not Detected (Not Detect); Phencyclidine Screen Urine Not Detected (Not Detect)
[2022-11-15] MEDS: Digoxin 0.125 MG TABLET PO (10:30)
[2022-11-15] MEDS: Gabapentin 600 MG TABLET PO (10:31)
[2022-11-15] MEDS: Apixaban 5 MG TABLET PO (10:31)
[2022-11-15] MEDS: Furosemide 20 MG TABLET PO (10:31)
[2022-11-15] MEDS: amLODIPine Besylate 5 MG TABLET PO (10:31)
[2022-11-15] MEDS: carvediloL 12.5 MG TABLET PO (10:31)
--- NOTE | 2022-11-15 10:44 | PC.NURSE ---
Pt given home meds, alert and oriented at this time. Answering questions appropriately. EMS transport booked for pt.
== END 2022-11-16 02:05 | disposition home or self-care (01) ==
PROVIDERS: Emergency Provider Emergency Medicine Emergency Medical Services
DX: S00.83XA Contusion of other part of head, initial encounter (principal); R51.9 Headache, unspecified; I48.20 Chronic atrial fibrillation, unspecified; F17.200 Nicotine dependence, unspecified, uncomplicated; X58.XXXA Exposure to other specified factors, initial encounter; Y93.9 Activity, unspecified; Y92.9 Unspecified place or not applicable; Y99.9 Unspecified external cause status; Z20.822 Contact with and (suspected) exposure to COVID-19; Z20.828 Contact with and (suspected) exposure to other viral communicable diseases; Z79.01 Long term (current) use of anticoagulants; Z91.81 History of falling; Z79.899 Other long term (current) drug therapy; Z71.6 Tobacco abuse counseling
CPT/HCPCS: 36415; 70450; 71045; 80053; 80162; 80307; 82077; 82550; 83605; 83690; 84484; 85025; 85610; 85730; 87040; 87502; 87635; 93005; 96361; 96374; 96376; 99285

== ENCOUNTER 2022-11-18 03:21 | Inpatient (IN) | payer OTHER, MEDICAID, SELFPAY ==
[2022-11-18] VITALS (11 sets, daily range): BP systolic 109–162; BP diastolic 61–103; PULSE 66–155; RESP 14–32; TEMP 36.4–37; O2SAT 96–100; BMI 23.8
--- NOTE | 2022-11-18 | ECG_ITS ---
Test Reason : cp Blood Pressure : / mmHG Vent. Rate : 112 BPM Atrial Rate : 000 BPM P-R Int : 000 ms QRS Dur : 148 ms QT Int : 380 ms P-R-T Axes : 000 048 037 degrees QTc Int : 518 ms Atrial fibrillation with rapid ventricular response Right bundle branch block Possible Inferior infarct (cited on or before 24-JUL-2021) Abnormal ECG When compared with ECG of 18-NOV-2022 04:11, No significant changes seen Referred By: Ivy Bull Electronically Signed By:IHSAN BERGMAN
--- NOTE | ~2022-11-18 | CT_ITS ---
EXAMINATION: CT CHEST, ABDOMEN AND PELVIS WITHOUT CONTRAST CLINICAL INFORMATION: Trauma COMPARISON: 11/26/2021 TECHNIQUE: Multidetector volumetric imaging was performed from the thoracic inlet through the pubic symphysis. Sagittal and coronal reformatted images were obtained on the technologist's workstation. Axial MIP volume rendering provided. This CT examination was performed using dose optimization techniques as appropriate, variously including the following: *Automated exposure control *Adjustment of mA and/or kV according to patient size (this includes techniques or standardized protocols for targeted exams where dose is matched to indication/reason for exam; i.e. extremities or head) *Use of iterative reconstruction technique DLP: 449, 803 mGy-cm FINDINGS: CHEST: Limited evaluation due to motion artifact. Lungs: Limited detailed evaluation of the parenchyma due to respiratory motion artifact. No regions of consolidation bilaterally. Mediastinum: Visualized thyroid gland is grossly unremarkable. There are subcentimeter mediastinal lymph nodes within the range of normal variation. There is cardiomegaly without pericardial effusion. There is scattered calcification along the aorta. Coronary Artery Calcification: Present Pleura: There is no significant effusion. No pleural mass or thickening. Chest Wall/Axilla: Unremarkable. ABDOMEN/PELVIS: Liver, Gallbladder, Biliary Tree: The liver is normal in size, shape, and attenuation. No focal hepatic lesion or biliary ductal dilatation is present. The gallbladder is unremarkable with no evidence of radiopaque gallstones, gallbladder wall thickening, or pericholecystic inflammatory changes. Pancreas: Unremarkable. Spleen: Unremarkable. Adrenal Glands: Unremarkable. Kidneys and Ureters: The kidneys are normal in size, shape, and attenuation. No hydronephrosis or hydroureter or obstructing calculi seen. No perinephric stranding. Bladder: Unremarkable. Gastrointestinal Tract: No evidence of bowel obstruction or significant wall thickening. The appendix is unremarkable. No free fluid or free air is seen. Abdominal Wall: No hernia is demonstrated. Lymphovascular Structures: Lymph nodes: No lymphadenopathy is seen, though assessment is limited in the absence of intravenous contrast. Vascular: There is extensive atherosclerotic calcification along the aorta and iliac arteries. Pelvic Viscera: Unremarkable. OSSEOUS STRUCTURES: Bilateral os acromiale is noted. Degenerative changes in the bilateral glenohumeral joints. There are healed right eighth, ninth, and 10th rib fractures. Multilevel degenerative endplate changes in the spine. Redemonstrated multiple lucencies in the L4 vertebral body. Facet arthropathy of the lower lumbar spine. CT/CT abdomen pelvis wo IV con IMPRESSION: 1. No acute traumatic findings identified in the chest, abdomen, or pelvis. 2. Cardiomegaly. 3. Coronary artery calcifications. Correlation with cardiac risk factors is recommended.
--- NOTE | ~2022-11-18 | CT_ITS ---
EXAMINATION: NONCONTRAST HEAD CT NONCONTRAST CERVICAL SPINE CT INDICATION INFORMATION: Head injury COMPARISON: 11/15/2022 TECHNIQUE: Separate noncontrast CT examinations of the head and cervical spine were performed. Coronal head CT images and coronal and sagittal cervical spine images were created at the technologist workstation. DLP: 1248, 694 mGy-cm DOSE LOWERING TECHNIQUES: This CT examination was performed using dose optimization techniques as appropriate, variously including the following: - Automated exposure control - Adjustment of mA and/or kV according to patient size (this includes techniques or standardized protocols for targeted exams were dose is matched to indication/reason for exam; i.e. extremities or head) - Use of iterative reconstruction technique FINDINGS: Head: There is no evidence of acute intracranial hemorrhage or territorial infarction. No abnormal mass-effect or midline shift is seen. [place] to white matter differentiation is well preserved. No extra-axial fluid collections are identified. The ventricles are normal in size. There is mild periventricular white matter hypoattenuation consistent with chronic small vessel ischemic disease. Mild volume loss is noted. There is mild lateral right frontal scalp soft tissue swelling. No acute fracture is seen. The mastoid air cells and visualized portions of the paranasal sinuses are well-aerated. Cervical spine: Significantly limited evaluation due to motion artifact. Grossly, alignment appears preserved, though detailed evaluation is limited. Vertebral body heights are maintained. There is suspected disc space narrowing and endplate osteophyte formation of the lower cervical spine. Moderate to severe multilevel facet arthropathy is noted. No definite evidence of acute fracture. No prevertebral soft tissue swelling. Visualized portions of the lung apices are unremarkable. The thyroid gland is unremarkable. CT/CT cervical spine wo IV con IMPRESSION: HEAD: No acute intracranial findings. Mild lateral right frontal scalp soft tissue swelling. CERVICAL SPINE: Significantly limited evaluation due to motion artifact. Grossly, no acute findings identified. However, if there is clinical suspicion for cervical spine injury a repeat exam may be attempted, as more subtle injury cannot be excluded.
--- NOTE | ~2022-11-18 | XR_ITS ---
EXAMINATION: XR CHEST CLINICAL INFORMATION: Fever COMPARISON: Chest CT November 18, 2022 and chest x-ray November 15, 2022 TECHNIQUE: Frontal view of the chest was obtained. FINDINGS: Cardiac silhouette is mildly enlarged. Lungs are well aerated. There is no lobar consolidation. No pleural effusion or pneumothorax. XR/XR chest 1V IMPRESSION: No acute pulmonary pathology.
--- NOTE | 2022-11-18 03:49 | ECG_ITS ---
Test Reason : FALL Blood Pressure : / mmHG Vent. Rate : 130 BPM Atrial Rate : 000 BPM P-R Int : 000 ms QRS Dur : 144 ms QT Int : 344 ms P-R-T Axes : 000 038 044 degrees QTc Int : 506 ms Atrial fibrillation with rapid ventricular response Right bundle branch block Inferior infarct (cited on or before 24-JUL-2021) Abnormal ECG When compared with ECG of 15-NOV-2022 06:36, No significant change was found Referred By: Jyoti Skinner Electronically Signed By:TORSTEN BAER MD
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
[2022-11-18 04:45] LABS: Appearance Urine Clear; Color Urine Dark Yellow; Glucose Urine UA Negative (Negative); Leukocyte Esterase Urine Negative (Negative); Nitrite Urine Negative (Negative); PH 5.5 (5.0-9.0); Specific Gravity - Urine >= 1.030 (1.005-1.025); UMIC TRIGGER UACC YES; Urine Blood Negative (Negative); Urine Ketones Negative (Negative); Urine Protein 30 (1+) mg/dL (Neg-Trace)
[2022-11-18 04:54] LABS: MANUAL DIFF FLAG NO
[2022-11-18 04:56] LABS: Amphetamine Screen Urine Not Detected (Not Detect); Barbiturates, Urine Not Detected (Not Detect); Benzodiazepines Screen Urine Not Detected (Not Detect); Cannabinoid Screen Urine POSITIVE (Not Detect); Cocaine Screen Urine Not Detected (Not Detect); Fentanyl, urine Not Detected (Not Detect); Opiate Screen Urine Not Detected (Not Detect); Phencyclidine Screen Urine Not Detected (Not Detect)
[2022-11-18 04:57] LABS: Basophils Percent Auto 0.4 % (0-2); Eosinophils Absolute Auto 0.1 X10*3/uL (0.0-0.4); Eosinophils Percent Auto 1.3 % (0-4); Hematocrit 28.6 % (42.0-52.0); Hemoglobin 9.1 g/dl (14.0-18.0); Imm Gran Abs Auto 0.02 X10*3/uL (0.00-0.03); Imm Gran Pct Auto 0.2 % (0.0-0.4); Lymphocytes Absolute Auto 1.3 X10*3/uL (1.2-4.9); Lymphocytes Percent Auto 13.7 % (20-40); Mean Corpuscular HGB Conc 31.8 g/dl (31.0-36.0); Mean Corpuscular Hemoglobin 26.4 pg (27.0-33.0); Mean Corpuscular Volume 82.9 fL (80.0-98.0); Mean Platelet Volume 7.8 fL (9.4-12.4); Monocytes Absolute Auto 0.7 X10*3/uL (0.1-1.2); Monocytes Percent Auto 7.5 % (2-11); Neutrophils Absolute Auto 7.2 x10*3/uL (2.0-8.3); Neutrophils Percent Auto 76.9 % (45-73); Platelet Count 369 X10*3/uL (160-400); Red Blood Count 3.45 X10*6/uL (4.60-5.80); Red Cell Distribution Width 16.5 % (11.0-16.0); White Blood Count 9.4 X10*3/uL (4.8-10.8)
[2022-11-18 04:58] LABS: Bacteria Urine None Seen (None Seen); Hyaline Casts Urine 0-2 /LPF (0-2); RBC Urine 0-2 /HPF (0-2); Squamous Epithelial Cell Urine 0-2 /HPF (0-2); WBC Urine 0-5 /HPF (0-5)
[2022-11-18] MEDS: LORazepam 2 MG/ML VIAL 1 MG IVPUSH (05:06)
[2022-11-18] MEDS: 0.9 % Sodium Chloride 500 ML 999 ML IV (05:06)
--- NOTE | 2022-11-18 05:09 | PC.NURSE ---
resident care technician came to bring pt to CT scan but pt was restless and unable to follow directions. Pt received 1 mg of ativan per provider order. Will now attempt to bring pt to CT scan.
[2022-11-18 05:10] LABS: Ethanol < 10 mg/dL
[2022-11-18 05:14] LABS: Lactic Acid 2.1 mmol/L (0.5-2.0)
[2022-11-18 05:15] LABS: Alanine Aminotransferase 8 U/L (0-40); Albumin Level 3.4 g/dL (3.5-5.0); Alkaline Phosphatase 67 U/L (39-117); Anion Gap 18 (12-20); Aspartate Amino Transferase 32 U/L (5-37); Bilirubin Direct < 0.2 mg/dL (0.0-0.5); Bilirubin Total 0.4 mg/dL (0.0-1.0); Blood Urea Nitrogen 15 mg/dL (9-16); Calcium 8.4 mg/dL (8.4-10.2); Carbon Dioxide 19 mmol/L (22-29); Chloride 100 mmol/L (96-108); Creatinine Clr Calc Pharmacy 108.4; Estimated Glomerular Filt Rate > 60; Glucose Random 95 mg/dL (60-115); Sodium 133 mmol/L (135-145); Total Protein 6.5 g/dL (6.5-8.0)
[2022-11-18 05:18] LABS: Troponin-I High Sensitivity 9.5 ng/L (<3.5-35.0)
--- NOTE | 2022-11-18 05:20 | PC.NURSE ---
Pt still unable to remain still for CT scan scan after receiving IV ativan. Provider made aware. Plan to give haldol to complete CT scan.
[2022-11-18] MEDS: Haloperidol Lactate 5 MG/ML VIAL 2.5 MG IM (05:25)
[2022-11-18] MEDS: dilTIAZem HCL 50 MG/10 ML VIAL 20 MG IVPUSH ×2 (06:07→07:44)
[2022-11-18 06:22] LABS: Influenza A PCR NEGATIVE (Negative); Influenza B PCR NEGATIVE (Negative); Resp Syncy Virus RNA Qual PCR NEGATIVE (Negative); SARS COV2 PCR INHOUSE NEGATIVE (Negative)
[2022-11-18 06:52] LABS: Reflex Lactate? Lactic Acid Added
[2022-11-18 06:57] LABS: Troponin-I High Sensitivity 10.2 ng/L (<3.5-35.0)
[2022-11-18 06:59] LABS: Lactic Acid 2.1 mmol/L (0.5-2.0)
[2022-11-18] MEDS: 0.9 % Sodium Chloride 1,000 ML 999 ML IV (07:44)
[2022-11-18] MEDS: cefTRIAXone sodium 1 GM in 0.9 % Sodium Chloride 50 ML IV (07:45)
--- NOTE | 2022-11-18 07:48 | PC.NURSE ---
Patient confusion noted will not follow commands MD aware, continues to be in afib additional dose of diltiazem admin will CTM. Patient IVF orders verified patient tolerating IVF and IV ABX will reassess.
--- NOTE | 2022-11-18 08:09 | PHA.MEDREC ---
Pharmacy Consult ? Medication Reconciliation Pharmacy has completed the medication reconciliation.
[2022-11-18 08:34] LABS: Reflex Lactate? Lactic Acid Added
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
--- NOTE | 2022-11-18 08:55 | PC.NURSE ---
IV right AC infiltrated removed catheter tip intact. New 18 gauge IV placed right forearm in patient MD at bedside verified plan will CTM
--- NOTE | 2022-11-18 09:10 | PC.NURSE ---
PAtient able to puff cheeks volitional cough and tolerate small and large sip of water follows some commands but remains somewhat confused
[2022-11-18] MEDS: Metoprolol Tartrate 25 MG TABLET 12.5 MG PO (09:29)
[2022-11-18] MEDS: Apixaban 5 MG TABLET PO ×2 (09:29→20:13)
[2022-11-18] MEDS: Digoxin 0.125 MG TABLET PO (09:29)
[2022-11-18] MEDS: Folic Acid 1 MG TABLET PO (09:29)
[2022-11-18] MEDS: Thiamine HCL 100 MG TABLET PO (09:29)
[2022-11-18] MEDS: Ferrous Sulfate 324 MG TABLET.DR PO (09:29)
[2022-11-18] MEDS: Sodium Chloride Tab 1 GM TABLET PO ×2 (09:29→20:13)
[2022-11-18] MEDS: Silver Sulfadiazine 1 % Cream 20 GM TUBE 1 APPL TOPICAL (09:30)
--- NOTE | 2022-11-18 10:10 | PC.NURSE ---
Dressing reapplied BLE patient needs constant redirection will CTM
--- NOTE | 2022-11-18 10:13 | MHC.EDTECH ---
assisted RN with applying cream and rewrapping wounds on lower leg.
[2022-11-18 10:21] LABS: ~Lactic Acid-LAB USE ONLY 1.7 mmol/L (0.5-2.0)
[2022-11-18 11:09] LABS: B Type Natriuretic Peptide 539 pg/mL (<100)
[2022-11-18] MEDS: PHENobarbitaL sodium 130 MG/ML IM ONCE 212 MG IM (11:15)
[2022-11-18] MEDS: Metoprolol Tartrate 5 MG/5 ML VIAL 2.5 MG IVPUSH ×2 (11:51→14:13)
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
[2022-11-18] MEDS: PHENobarbitaL sodium 130 MG/ML VIAL IM Q3Hx2 159 MG IM ×2 (14:16→17:25)
--- NOTE | 2022-11-18 15:48 | PC.NURSE ---
spoke to Scarlet Hailee ([phone] ext.[phone]): counseling case manager for pt from [facility] - does grocery shopping and cleaning for pt. does wellness checks. Scarlet stated about 2 days ago pt was hospitalized at [facility] for a fall. she stated pt felt weak and not himself and almost fell out of his wheelchair but the gaitbelt prevented the fall. Scarlet unsure why pt was discharged so quick from [facility]. Scarlet also was stating the pt was hallucinating - stating theres cookies on the floor and someone is leaving and kept going on and on and laughing to himself which is not deja for pt.
[2022-11-18] MEDS: 0.9 % Sodium Chloride Flush 3 ML SYRINGE IVFLUSH ×2 (17:25→20:14)
[2022-11-18] MEDS: Metoprolol Tartrate 25 MG TABLET PO (17:26)
--- NOTE | 2022-11-18 18:20 | MHC.SL.SWA ---
Speech Pathologist Impression: Oral phase dysphagia Risk of Aspiration Due to: Confusion Dysphasia Diet Status: Upgrade from NPO to NDD2/thin Liquid Consistency and Strategies for Safe Swallow: Liquid Intake Recommendation: Thin Liquid Intake Strategies: Small Sips Solid Food Consistency: Dietary Recommendations: Grnd/Mech Altered (NDD2) Additional Modifications to Solid Foods: Recommend START on GROUND/MECH ALTERED (NDD2) diet with THIN liquids, small pills WHOLE with liquid, crush large pills if needed. Pt requires 1:1 assistance feeding at this time. Aspiration precautions apply. Recommendations written on whiteboard in pt's room, notified MD, RN, RD via [employer] Message. LINE UP EXAMINER will continue to follow. Oral Medication Intake: Whole with Liquid Please contact the pharmacy regarding appropriate crushable or liquid drug formulations that are available whenever modified delivery is recommended. Compensatory Strategies and Precautions to be Taken for Safe Swallow: Sitting Upright (90 deg) Small Bites and Sips Rate of Ingestion Change Oral Check Avoid Specific Foods Supervision While Eating and Drinking for Safe Swallow: Total Assistance (1:1) Foods to Avoid: Hard tough to chew solids Swallowing Recommended Treatments: Compens. Strategy Educat. Recommendation for Speech: Inpatient Speech Therapy Financial [employer]ations Representative Clinican/Clinical Fellow: No Supervisory Statement: I have reviewed and agree with the student/clinical fellow's documentation: N/A Speech Language Pathologist: Summer Toscano M.A., [facility]LINE UP EXAMINER
[2022-11-18] MEDS: PHENobarbitaL 15 MG TABLET 45 MG PO (20:12)
[2022-11-18] MEDS: Atorvastatin Calcium 80 MG TABLET PO (20:13)
[2022-11-18] MEDS: OLANZapine 10 MG TABLET PO (21:57)
[2022-11-18] MEDS: Metoprolol Tartrate 5 MG/5 ML VIAL IVPUSH (22:44)
--- NOTE | 2022-11-18 23:22 | PC.NURSE ---
2300 Patient HR 141 Vtach on the monitor BP 140/89 RR 28 O2 98% room air 5mg Metoprolol IV push given, notified. 12 Lead EKG ordered , and Mag level. 2315 Notified EKG afib RVR R Bundle branch block. stated pt has HX afib is good as long as Heart rate < 140 .
[2022-11-18 23:54] LABS: Magnesium 1.3 mg/dL (1.6-2.6)
[2022-11-19] MEDS: Magnesium Sulfate/H2O 2 GM/50 ML PIGGYBACK IV (00:08)
[2022-11-19] MEDS: PHENobarbitaL sodium 130 MG/ML VIAL IM ×2 (00:24→02:21)
[2022-11-19] MEDS: Metoprolol Tartrate 25 MG TABLET PO ×3 (01:29→17:27)
[2022-11-19] MEDS: LORazepam 2 MG/ML VIAL IVPUSH (02:22)
[2022-11-19] MEDS: OLANZapine 10 MG VIAL IM ×2 (02:38→22:33)
[2022-11-19 03:28] VITALS: BP 145/82; PULSE 77; RESP 24; TEMP 37.1; O2SAT 93
--- NOTE | 2022-11-19 04:47 | PC.NURSE ---
0430 Pt ripping off Tele leads, tried to reapply several times pt combative swinging arms and ripping the leads off.
[2022-11-19] MEDS: Omeprazole 40 MG CAPSULE.DR PO (05:23)
--- NOTE | 2022-11-19 06:31 | PC.NURSE ---
0615 This RN Attempted again to apply Tele monitor to patient, carmen Hogan tried with no result pt ripping leads off crossing arms and not allowing to apply.
--- NOTE | 2022-11-19 06:33 | PC.NURSE ---
0200 Notified pt was very restless, ripping off tele leads, agitated and scoring 15 on CIWA HR 120-130 MD ordered ativan IV push , zyprexa IM, and Pheno IM with good results.
[2022-11-19 07:50] LABS: Hematocrit 26.1 % (42.0-52.0); Hemoglobin 8.2 g/dl (14.0-18.0); Mean Corpuscular HGB Conc 31.4 g/dl (31.0-36.0); Mean Corpuscular Hemoglobin 26.4 pg (27.0-33.0); Mean Corpuscular Volume 83.9 fL (80.0-98.0); Mean Platelet Volume 8.2 fL (9.4-12.4); Platelet Count 314 X10*3/uL (160-400); Red Blood Count 3.11 X10*6/uL (4.60-5.80); Red Cell Distribution Width 16.6 % (11.0-16.0); White Blood Count 10.1 X10*3/uL (4.8-10.8)
[2022-11-19 08:00] VITALS: BP 145/68; PULSE 152; RESP 20; TEMP 36.9; O2SAT 95
[2022-11-19 08:18] LABS: Alanine Aminotransferase 6 U/L (0-40); Alkaline Phosphatase 63 U/L (39-117); Anion Gap 18 (12-20); Aspartate Amino Transferase 25 U/L (5-37); Bilirubin Total 0.6 mg/dL (0.0-1.0); Blood Urea Nitrogen 8 mg/dL (9-16); Carbon Dioxide 19 mmol/L (22-29); Chloride 103 mmol/L (96-108); Creatinine Clr Calc Pharmacy 125.6; Estimated Glomerular Filt Rate > 60; Glucose Random 81 mg/dL (60-115); Potassium 3.6 mmol/L (3.3-5.1); Sodium 136 mmol/L (135-145); Total Protein 5.4 g/dL (6.5-8.0)
[2022-11-19] MEDS: PHENobarbitaL 15 MG TABLET 45 MG PO ×2 (08:53→21:04)
[2022-11-19] MEDS: Sodium Chloride Tab 1 GM TABLET PO ×2 (08:54→15:30)
[2022-11-19] MEDS: Digoxin 0.125 MG TABLET PO (08:54)
[2022-11-19] MEDS: Apixaban 5 MG TABLET PO ×2 (08:54→21:06)
[2022-11-19] MEDS: Folic Acid 1 MG TABLET PO (08:54)
[2022-11-19] MEDS: Ferrous Sulfate 324 MG TABLET.DR PO (08:54)
[2022-11-19] MEDS: Thiamine HCL 100 MG TABLET PO (08:54)
[2022-11-19] MEDS: Magnesium Oxide 400 MG TABLET PO ×2 (09:13→17:27)
--- NOTE | 2022-11-19 11:08 | HO.PM.IMPN ---
Subjective Subjective Date of Service: 11/19/22 Interval History: fall, ams Physical Exam Vital Signs: Vital Signs: Last Vital Signs Temp 98.5 F 11/19/22 08:00 Pulse 152 H 11/19/22 08:00 Resp 20 11/19/22 08:00 BP 145/68 H 11/19/22 08:00 Pulse Ox 95 11/19/22 08:00 O2 Del Method 11/19/22 08:00 BMI result Body Mass Index 23.[address] and year, but very poor insight, hallucinating, frail appearing Objective Data Active Medications Acetaminophen (Acetaminophen 325 Mg Tablet) 650 mg PO Q6H PRN PRN Reason: Pain, Mild (Pain Scale 1-3) Apixaban (Apixaban 5 Mg Tablet) 5 mg PO BID [facility] Last Admin: 11/19/22 08:54 Dose: 5 mg Documented By: JOSUE Atorvastatin Calcium (Atorvastatin Calcium 80 Mg Tablet) 80 mg PO BEDTIME [facility] Last Admin: 11/18/22 20:13 Dose: 80 mg Documented By: JEANNIE Digoxin (Digoxin 0.125 Mg Tablet) 0.125 mg PO DAILY [facility] Last Admin: 11/19/22 08:54 Dose: 0.125 mg Documented By: JOSUE Ferrous Sulfate (Ferrous Sulfate 324 Mg Tablet.Dr) 324 mg PO DAILY [facility] Last Admin: 11/19/22 08:54 Dose: 324 mg Documented By: JOSUE Folic Acid (Folic Acid 1 Mg Tablet) 1 mg PO DAILY [facility] Last Admin: 11/19/22 08:54 Dose: 1 mg Documented By: JOSUE Haloperidol (Haloperidol 1 Mg Tablet) 2 mg PO Q6H PRN PRN Reason: agitation, hallucinations Magnesium Oxide (Magnesium Oxide 400 Mg Tablet) 400 mg PO BIDPC [facility] Last Admin: 11/19/22 09:13 Dose: 400 mg Documented By: JOSUE Metoprolol Tartrate (Metoprolol Tartrate 25 Mg Tablet) 25 mg PO Q8H [facility]; Protocol Last Admin: 11/19/22 08:59 Dose: 25 mg Documented By: JOSUE Metoprolol Tartrate (Metoprolol Tartrate 5 Mg/5 Ml Vial) 5 mg IVPUSH Q6H PRN PRN Reason: HR > 130 Last Admin: 11/18/22 22:44 Dose: 5 mg Documented By: JEANNIE Omeprazole (Omeprazole 40 Mg Capsule.Dr) 40 mg PO DAILY@0630 [facility] Last Admin: 11/19/22 05:23 Dose: 40 mg Documented By: JEANNIE Ondansetron HCl (Ondansetron Hcl 4 Mg/2 Ml Vial) 4 mg IVPUSH Q8H PRN PRN Reason: Nausea and Vomiting Pharmacy Consult (Consult Rx Perform Med Rec) 1 each MISCELLANE ONCE PRN PRN Reason: Consult order Pharmacy Consult (Consult Rx Etoh Phenob Im/Po) 1 each MISCELLANE ONCE PRN; Protocol PRN Reason: Consult order Phenobarbital (Phenobarbital 15 Mg Tablet) 45 mg PO BID [facility]; Protocol Stop: 11/20/22 09:01 Last Admin: 11/19/22 08:53 Dose: 45 mg Documented By: JOSUE Phenobarbital (Phenobarbital 30 Mg Tablet) 30 mg PO BID [facility]; Protocol Stop: 11/22/22 09:01 Phenobarbital (Phenobarbital 30 Mg Tablet) 30 mg PO DAILY [facility]; Protocol Stop: 11/24/22 09:01 Silver Sulfadiazine (Silver Sulfadiazine 1 % Cream 20 Gm Tube) 1 appl TOPICAL DAILY [facility] Last Admin: 11/18/22 09:30 Dose: 1 appl Documented By: TRENT Sodium Chloride (0.9 % Sodium Chloride Flush 3 Ml Syringe) 3 ml IVFLUSH QSHIFT [facility] Last Admin: 11/19/22 09:03 Dose: Not Given Documented By: JOSUE Non-Admin Reason: No Access Sodium Chloride (Sodium Chloride Tab 1 Gm Tablet) 1 gm PO TID [facility] Last Admin: 11/19/22 08:54 Dose: 1 gm Documented By: JOSUE Thiamine HCl (Thiamine Hcl 100 Mg Tablet) 100 mg PO DAILY [facility] Last Admin: 11/19/22 08:54 Dose: 100 mg Documented By: JOSUE Labs 11/19/22 07:25 11/19/22 07:25 Labs: Laboratory Results - last 24 hr 11/18/22 11/18/22 11/19/22 09:50 23:22 07:25 MCV 83.9 MCH 26.4 L MCHC 31.4 RDW 16.6 H Plt Count 314 MPV 8.2 L Absolute Nucleated RBC 0.000 Nucleated RBC % (auto) 0.0 Anion Gap Estim Creat Clear Calc Estimated GFR Random Glucose Calcium Magnesium 1.3 L* Total Bilirubin AST ALT Alkaline Phosphatase B-Natriuretic Peptide 539 H Total Protein Albumin 11/19/22 07:25 MCV MCH MCHC RDW Plt Count MPV Absolute Nucleated RBC Nucleated RBC % (auto) Anion Gap 18 Estim Creat Clear Calc 125.6 Estimated GFR > 60 Random Glucose 81 Calcium 8.0 L Magnesium Total Bilirubin 0.6 AST 25 ALT 6 Alkaline Phosphatase 63 B-Natriuretic Peptide Total Protein 5.4 L Albumin 3.0 L Microbiology Microbiology Results: Microbiology 11/18/22 04:47 Blood Culture - Preliminary Blood - Venous No growth after 24 hours. 11/18/22 04:49 Blood Culture - Preliminary Blood - Venous No growth after 24 hours. Assessment and Plan (1) A-fib: Status: Acute Plan 61 yo M with a PMH of Chronic persistent A. Fib on dig + eliquis, cardiomyopath/HFrEF with last EF around 20%, CAD with multivessle disease - deemed not a candidate for CABG due to comorbidities, alcohol abuse, lower extremity roberts who presented to the hospital after a mechanical fall.? He was noted to be confused and in A. Fib with RVR. Acute encephalopathy - possibly toxic/metabolic due to alcohol dependence with withdrawal, with background of alcohol related dementia phenoabrb, ciwa chronic persistent afib with rvr metoprolol, dig, eliquis, cardio eval ischemic cardiomyopathy was previously recommended for CABG but deemed not to be surgical candidate continue eliquis, metoprolol Chronic roberts / wound to the LE continue local care, wound care appreciated Presumed Full Code - d/w hcp, sister, aware of guarded prognosis, will stay full code for now, plan for goals of care discussion with patient if mentation improves DVT pptx, Eliquis reason for continued hospitalization:ams Time Spent With Patient Time: Total time managing care of this patient today ____ minutes. Quality Stroke Does the patient have a stroke diagnosis?: No VTE Prior VTE?: No VTE Risk Level:: Medical - moderate - high VTE Device Contraindication: Treatment Not Indicated VTE Drug Contraindication: N/A - Med Ordered
[2022-11-19 11:59] VITALS: BP 142/82; PULSE 110; RESP 20; TEMP 36.7; O2SAT 97
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
--- NOTE | 2022-11-19 14:31 | PC.NURSE ---
dressing change to bilateral lower legs and right thigh dressing CDI. some yellow drainage to right lower extremity noted. small pieces of silver algenate cut and placed in wound bed and dressed per order.
--- NOTE | 2022-11-19 15:04 | PC.NURSE ---
spoke to sister Yana on phone - sister states her son, John Manzano, is the HCP for pt. Yana said she spoke with MD earlier in regards to pt's state and that she'll talk to her son to make a decision to change pt from full code. yana to call back when she's able to talk to son.
[2022-11-19 16:00] VITALS: BP 147/70; PULSE 117; RESP 18; TEMP 36.3; O2SAT 96
[2022-11-19 19:08] VITALS: BP 139/91; PULSE 102; RESP 18; TEMP 36.8; O2SAT 98
[2022-11-19] MEDS: HaloperidoL 1 MG TABLET 2 MG PO (21:05)
[2022-11-19] MEDS: Atorvastatin Calcium 80 MG TABLET PO (21:11)
--- NOTE | 2022-11-19 21:24 | PC.NURSE ---
2100 pt refusing tele attempted to re apply leads pt ripped away.
[2022-11-19 22:59] VITALS: PULSE 84; RESP 18; TEMP 37.1; O2SAT 97
--- NOTE | 2022-11-20 00:36 | PC.NURSE ---
2199 Patient was on the phone with his sister Isabela, very agitated he said he is well enough to leave he does not want to be here , and its her fault and would like to leave NOW! RN spoke to sister and she told pt if he stayed for the night should would try to get him tomorrow. Patient asked for something to sleep so he could stay tonight and leave tomorrow he was very restless. notified Zyprexa IM ordered, with good effect.
[2022-11-20] MEDS: Metoprolol Tartrate 25 MG TABLET PO ×3 (02:48→17:45)
[2022-11-20] MEDS: HaloperidoL 1 MG TABLET 2 MG PO (02:49)
[2022-11-20] MEDS: 0.9 % Sodium Chloride Flush 3 ML SYRINGE IVFLUSH (02:52)
[2022-11-20 03:49] VITALS: BP 148/88; PULSE 103; RESP 16; TEMP 38.6; O2SAT 98
[2022-11-20] MEDS: Acetaminophen 325 MG TABLET 650 MG PO ×2 (04:06→21:15)
[2022-11-20] MEDS: Omeprazole 40 MG CAPSULE.DR PO (04:06)
[2022-11-20 07:47] LABS: Hemoglobin 7.7 g/dl (14.0-18.0); Mean Corpuscular HGB Conc 30.8 g/dl (31.0-36.0); Mean Corpuscular Hemoglobin 26.2 pg (27.0-33.0); Mean Platelet Volume 8.5 fL (9.4-12.4); Platelet Count 353 X10*3/uL (160-400); Red Blood Count 2.94 X10*6/uL (4.60-5.80); Red Cell Distribution Width 16.5 % (11.0-16.0)
[2022-11-20 08:00] VITALS: BP 150/79; PULSE 105; RESP 17; TEMP 37.2; O2SAT 98
[2022-11-20 08:02] LABS: Alanine Aminotransferase 6 U/L (0-40); Albumin Level 2.9 g/dL (3.5-5.0); Alkaline Phosphatase 57 U/L (39-117); Anion Gap 15 (12-20); Aspartate Amino Transferase 27 U/L (5-37); Bilirubin Direct < 0.2 mg/dL (0.0-0.5); Bilirubin Total 0.4 mg/dL (0.0-1.0); Blood Urea Nitrogen 12 mg/dL (9-16); Calcium 7.9 mg/dL (8.4-10.2); Carbon Dioxide 21 mmol/L (22-29); Chloride 105 mmol/L (96-108); Creatinine Clr Calc Pharmacy 127.8; Estimated Glomerular Filt Rate > 60; Glucose Fasting 111 mg/dL (60-99); Magnesium 1.7 mg/dL (1.6-2.6); Potassium 3.5 mmol/L (3.3-5.1); Sodium 137 mmol/L (135-145); Total Protein 5.4 g/dL (6.5-8.0)
[2022-11-20 08:43] LABS: Lactic Acid 1.4 mmol/L (0.5-2.0)
--- NOTE | 2022-11-20 10:14 | HO.PM.IMPN ---
Subjective Subjective Date of Service: 11/20/22 Interval History: fall, ams Physical Exam Vital Signs: Vital Signs: Last Vital Signs Temp 99.0 F 11/20/22 08:00 Pulse 105 H 11/20/22 08:00 Resp 17 11/20/22 08:00 BP 150/79 H 11/20/22 08:00 Pulse Ox 98 11/20/22 08:00 O2 Del Method 11/20/22 08:00 BMI result Body Mass Index 23.[address] and year, but very poor insight, hallucinating, frail appearing Objective Data Active Medications Acetaminophen (Acetaminophen 325 Mg Tablet) 650 mg PO Q6H PRN PRN Reason: Pain, Mild (Pain Scale 1-3) Last Admin: 11/20/22 04:06 Dose: 650 mg Documented By: JEANNIE Apixaban (Apixaban 5 Mg Tablet) 5 mg PO BID [facility] Last Admin: 11/19/22 21:06 Dose: 5 mg Documented By: JEANNIE Atorvastatin Calcium (Atorvastatin Calcium 80 Mg Tablet) 80 mg PO BEDTIME [facility] Last Admin: 11/19/22 21:11 Dose: 80 mg Documented By: JEANNIE Albuterol Sulfate 2.5 mg/ (Ipratropium [place] 0.5 mg) 0 mg INHALE RQ4H WHILE AWAKE PRN PRN Reason: Shortness of Breath Digoxin (Digoxin 0.125 Mg Tablet) 0.125 mg PO DAILY [facility] Last Admin: 11/19/22 08:54 Dose: 0.125 mg Documented By: JOSUE Ferrous Sulfate (Ferrous Sulfate 324 Mg Tablet.) 324 mg PO DAILY [facility] Last Admin: 11/19/22 08:54 Dose: 324 mg Documented By: JOSUE Folic Acid (Folic Acid 1 Mg Tablet) 1 mg PO DAILY [facility] Last Admin: 11/19/22 08:54 Dose: 1 mg Documented By: JOSUE Haloperidol (Haloperidol 1 Mg Tablet) 2 mg PO Q6H PRN PRN Reason: agitation, hallucinations Last Admin: 11/20/22 02:49 Dose: 2 mg Documented By: JEANNIE Magnesium Oxide (Magnesium Oxide 400 Mg Tablet) 400 mg PO BIDPC [facility] Last Admin: 11/19/22 17:27 Dose: 400 mg Documented By: JOSUE Metoprolol Tartrate (Metoprolol Tartrate 25 Mg Tablet) 25 mg PO Q8H [facility]; Protocol Last Admin: 11/20/22 02:48 Dose: 25 mg Documented By: JEANNIE Metoprolol Tartrate (Metoprolol Tartrate 5 Mg/5 Ml Vial) 5 mg IVPUSH Q6H PRN PRN Reason: HR > 130 Last Admin: 11/18/22 22:44 Dose: 5 mg Documented By: JEANNIE Omeprazole (Omeprazole 40 Mg Capsule.Dr) 40 mg PO DAILY@0630 [facility] Last Admin: 11/20/22 04:06 Dose: 40 mg Documented By: JEANNIE Ondansetron HCl (Ondansetron Hcl 4 Mg/2 Ml Vial) 4 mg IVPUSH Q8H PRN PRN Reason: Nausea and Vomiting Pharmacy Consult (Consult Rx Perform Med Rec) 1 each MISCELLANE ONCE PRN PRN Reason: Consult order Pharmacy Consult (Consult Rx Etoh Phenob Im/Po) 1 each MISCELLANE ONCE PRN; Protocol PRN Reason: Consult order Phenobarbital (Phenobarbital 30 Mg Tablet) 30 mg PO BID [facility]; Protocol Stop: 11/22/22 09:01 Phenobarbital (Phenobarbital 30 Mg Tablet) 30 mg PO DAILY [facility]; Protocol Stop: 11/24/22 09:01 Sodium Chloride (0.9 % Sodium Chloride Flush 3 Ml Syringe) 3 ml IVFLUSH QSHIFT [facility] Last Admin: 11/20/22 08:55 Dose: Not Given Documented By: JOSUE Non-Admin Reason: No Access Sodium Chloride (Sodium Chloride Tab 1 Gm Tablet) 1 gm PO TID [facility] Last Admin: 11/19/22 21:20 Dose: Not Given Documented By: JEANNIE Non-Admin Reason: Patient Refused Thiamine HCl (Thiamine Hcl 100 Mg Tablet) 100 mg PO DAILY [facility] Last Admin: 11/19/22 08:54 Dose: 100 mg Documented By: JOSUE Labs 11/20/22 07:13 11/20/22 07:13 Labs: Laboratory Results - last 24 hr 11/20/22 11/20/22 11/20/22 07:13 07:13 08:15 MCV 85.0 MCH 26.2 L MCHC 30.8 L RDW 16.5 H Plt Count 353 MPV 8.5 L Absolute Nucleated RBC 0.000 Nucleated RBC % (auto) 0.0 Anion Gap 15 Estim Creat Clear Calc 127.8 Estimated GFR > 60 Fasting Glucose 111 H Lactic Acid 1.4 Calcium 7.9 L Magnesium 1.7 Total Bilirubin 0.4 Direct Bilirubin < 0.2 AST 27 ALT 6 Alkaline Phosphatase 57 Total Protein 5.4 L Albumin 2.9 L Microbiology Microbiology Results: Microbiology 11/18/22 04:47 Blood Culture - Preliminary Blood - Venous No growth after 48 hours. 11/18/22 04:49 Blood Culture - Preliminary Blood - Venous No growth after 48 hours. Assessment and Plan (1) A-fib: Status: Acute Plan 61 yo M with a PMH of Chronic persistent A. Fib on dig + eliquis, cardiomyopath/HFrEF with last EF around 20%, CAD with multivessle disease - deemed not a candidate for CABG due to comorbidities, alcohol abuse, lower extremity roberts who presented to the hospital after a mechanical fall.? He was noted to be confused and in A. Fib with RVR. Acute encephalopathy - possibly toxic/metabolic due to alcohol dependence with withdrawal, with background of alcohol related dementia continue phenobarb, ciwa fever isolated, no evidence of sepsis/bacterial infection at this time will check cultures, cxr, ua monitor off abx chronic persistent afib with rvr metoprolol, dig, eliquis, cardio eval ischemic cardiomyopathy was previously recommended for CABG but deemed not to be surgical candidate continue eliquis, metoprolol Chronic roberts / wound to the LE continue local care, wound care appreciated Presumed Full Code - d/w hcp, sister, aware of guarded prognosis, will stay full code for now, plan for goals of care discussion with patient if mentation improves DVT pptx, Eliquis reason for continued hospitalization:ams Time Spent With Patient Time: Total time managing care of this patient today ____ minutes. Quality Stroke Does the patient have a stroke diagnosis?: No VTE Prior VTE?: No VTE Risk Level:: Medical - moderate - high VTE Device Contraindication: Treatment Not Indicated VTE Drug Contraindication: N/A - Med Ordered
--- NOTE | 2022-11-20 10:52 | PC.NURSE ---
this nurse went to give pt morning meds at 9:04, pt sound asleep and arrousable to name however too lethargic to follow commands to swallow pills safely. AM meds held, notified.
[2022-11-20] MEDS: Ferrous Sulfate 324 MG TABLET.DR PO (11:49)
[2022-11-20] MEDS: Sodium Chloride Tab 1 GM TABLET PO ×3 (11:49→20:40)
[2022-11-20] MEDS: PHENobarbitaL 15 MG TABLET 45 MG PO (11:49)
[2022-11-20] MEDS: Thiamine HCL 100 MG TABLET PO (11:50)
[2022-11-20] MEDS: Magnesium Oxide 400 MG TABLET PO ×2 (11:50→17:46)
[2022-11-20] MEDS: Apixaban 5 MG TABLET PO ×2 (11:50→20:40)
[2022-11-20] MEDS: Folic Acid 1 MG TABLET PO (11:50)
[2022-11-20] MEDS: Digoxin 0.125 MG TABLET PO (11:50)
[2022-11-20 11:55] VITALS: BP 146/68; PULSE 110; RESP 17; TEMP 36.9; O2SAT 98
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
--- NOTE | 2022-11-20 12:09 | PC.NURSE ---
at this time pt more awake, alert, coherent, appropriate - carrying on conversation. took pills whole with cortney wellington.
--- NOTE | 2022-11-20 14:50 | PC.NURSE ---
multiple attempts between RN and RECEIVING SUPERVISOR to gown back on pt, put repertoire manager back on pt however pt keeps taking it off in sleep.
[2022-11-20 15:17] VITALS: BP 118/62; PULSE 83; RESP 18; TEMP 36.3
[2022-11-20 20:00] VITALS: BP 132/82; PULSE 82; RESP 18; TEMP 37.2; O2SAT 99
[2022-11-20] MEDS: Atorvastatin Calcium 80 MG TABLET PO (20:40)
[2022-11-20] MEDS: PHENobarbitaL 30 MG TABLET PO (20:40)
[2022-11-20] MEDS: traZODone HCL 50 MG TABLET PO (21:15)
[2022-11-20] MEDS: traMADoL HCL 50 MG TABLET PO (21:15)
[2022-11-21] VITALS (7 sets, daily range): BP systolic 137–166; BP diastolic 71–99; PULSE 72–128; RESP 14–20; TEMP 36.4–37.4; O2SAT 94–100
[2022-11-21] MEDS: Metoprolol Tartrate 25 MG TABLET PO (02:59)
[2022-11-21] MEDS: Omeprazole 40 MG CAPSULE.DR PO (06:15)
[2022-11-21 07:16] LABS: Anion Gap 14 (12-20); Blood Urea Nitrogen 9 mg/dL (9-16); Calcium 7.9 mg/dL (8.4-10.2); Carbon Dioxide 23 mmol/L (22-29); Chloride 104 mmol/L (96-108); Creatinine Clr Calc Pharmacy 123.4; Estimated Glomerular Filt Rate > 60; Glucose Fasting 109 mg/dL (60-99); Potassium 3.9 mmol/L (3.3-5.1); Sodium 137 mmol/L (135-145)
[2022-11-21 08:00] LABS: Hematocrit 25.7 % (42.0-52.0); Hemoglobin 8.1 g/dl (14.0-18.0); Mean Corpuscular HGB Conc 31.5 g/dl (31.0-36.0); Mean Corpuscular Hemoglobin 26.6 pg (27.0-33.0); Mean Corpuscular Volume 84.5 fL (80.0-98.0); Mean Platelet Volume 8.7 fL (9.4-12.4); Platelet Count 347 X10*3/uL (160-400); Red Blood Count 3.04 X10*6/uL (4.60-5.80); Red Cell Distribution Width 16.5 % (11.0-16.0); White Blood Count 8.7 X10*3/uL (4.8-10.8)
[2022-11-21] MEDS: PHENobarbitaL 30 MG TABLET PO ×2 (08:27→22:10)
[2022-11-21] MEDS: Digoxin 0.125 MG TABLET PO (08:28)
[2022-11-21] MEDS: Magnesium Oxide 400 MG TABLET PO ×2 (08:28→17:06)
[2022-11-21] MEDS: Sodium Chloride Tab 1 GM TABLET PO ×3 (08:28→22:10)
[2022-11-21] MEDS: Apixaban 5 MG TABLET PO ×2 (08:28→22:10)
[2022-11-21] MEDS: Ferrous Sulfate 324 MG TABLET.DR PO (08:28)
[2022-11-21] MEDS: Folic Acid 1 MG TABLET PO (08:28)
[2022-11-21] MEDS: Thiamine HCL 100 MG TABLET PO (08:29)
[2022-11-21] MEDS: Acetaminophen 325 MG TABLET 650 MG PO (08:39)
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
--- NOTE | 2022-11-21 10:58 | P.PNCA_ITS ---
Subjective Subjective Date of Service: 11/21/22 Interval history: He was sleeping when I walked in. After waking up from sleep, he states he is generally doing okay. No specific complaints at this time. Review of Systems Review of Systems Yes all other systems are reviewed and are negative Constitutional: Reports as per HPI and Reports no additional constitutional complaints Eyes: Reports as per HPI and Denies no additional eye complaints Denies system reviewed and no additional complaints, except as documented and Reports as per HPI Cardiovascular: Reports as per HPI, Reports no additional cardiovascular complaints, Denies acrocyanosis, Denies cool extremities, Denies chest pain, Denies leg edema, Denies lightheadedness, Denies palpitations and Denies dyspnea Respiratory: Reports as per HPI, Denies no additional respiratory complaints and Denies dyspnea Gastrointestinal: Reports as per HPI and Denies no additional gastrointestinal complaints Genitourinary: Reports no additional male genitourinary complaints and Reports as per HPI Musculoskeletal: Reports no additional musculoskeletal complaints and Reports as per HPI Skin/Breast: Reports system reviewed and no additional complaints, except as docu Reports system reviewed and no additional complaints, except as documented and Reports as per HPI Psychiatric: Reports no additional psychiatric complaints and Reports as per HPI Endocrine: Reports no additional endocrine complaints, Reports as per HPI and Denies palpitations Hematologic/Lymphatic: Reports no additional hematologic/lymphatic complaints and Reports as per HPI Allergic/Immunologic: Reports no additional allergic/immunologic complaints and Reports as per HPI Physical Exam Vital Signs: Last Vital Signs Temp 97.8 F 11/21/22 10:56 Pulse 120 H 11/21/22 10:56 Resp 20 11/21/22 10:56 BP 146/92 H 11/21/22 10:56 Pulse Ox 98 11/21/22 10:56 O2 Del Method 11/21/22 10:56 BMI result Body Mass Index 23.8 Const General: comfortable and no acute distress Orientation/consciousness: patient oriented x3 HEENT Other: Unremarkable Head: Yes normal to inspection Neck Neck: Yes normal visual inspection Chest Chest palpation & inspection: normal inspection of the chest Resp Auscultation: rhonchi Cardio Palpation: normal PMI Heart sounds: S1 normal heart sound present, S2 normal heart sound present, no gallops, no murmurs and no rubs GI Palpation (GI): Soft to palpation Back/Spine/Pelvis Other: unremarkable Skin General skin exam: no rashes or lesions noted Neuro General: patient oriented x3 Extrem Other: 1+ edema General: Yes normal to inspection Psych Mental Status: mental status grossly normal Objective Labs and Meds 11/21/22 06:51 11/21/22 06:51 Lab results: Laboratory Results - last 24 hr 11/21/22 11/21/22 06:51 06:51 WBC 8.7 RBC 3.04 L Hgb 8.1 L Hct 25.7 L MCV 84.5 MCH 26.6 L MCHC 31.5 RDW 16.5 H Plt Count 347 MPV 8.7 L Absolute Nucleated RBC 0.000 Nucleated RBC % (auto) 0.0 Sodium 137 Potassium 3.9 Chloride 104 Carbon Dioxide 23 Anion Gap 14 BUN 9 Creatinine 0.58 Estim Creat Clear Calc 123.4 Estimated GFR > 60 Fasting Glucose 109 H Calcium 7.9 L Progress Note: A&P Assessment and plan (1) Atrial fibrillation with rapid ventricular response: Status: Acute Assessment and Plan: Rate seems to be fast. On review of telemetry, rates are in the 130s to 140s. Based on a sure consultation, question of noncompliance. We will go up on the m etoprolol dosing as the blood pressure is holding. Also on digoxin. (2) Cardiomyopathy: Status: Acute Assessment and Plan: Known to have severe cardiomyopathy. Thought to be some combination of ischemic as well as from tachycardia. However, not felt to be a good candidate for surgery. Meds to be titrated as feasible. Low blood pressure issues mentioned in initial consultation but blood pressure seems to be rather okay. (3) Coronary artery disease: Status: Acute Assessment and Plan: Likely medical management only. No clear-cut angina at this time. Plan Discussed with ; RN. Time Spent With Patient Time: Total time managing care of this patient today 45 minutes. Progress Note: Quality Stroke Does the patient have a stroke diagnosis?: No Procedures Date of Service Date of Service: 11/21/22
[2022-11-21] MEDS: Digoxin 0.5 MG/2 ML AMPUL 0.25 MG IVPUSH ×3 (11:16→22:10)
[2022-11-21] MEDS: HYDROmorphone HCl 2 MG TABLET 1 MG PO ×3 (11:19→23:43)
--- NOTE | 2022-11-21 12:46 | P.CDIM_ITS ---
PROVIDER RESPONSE TEXT: To clarify, the appropriate diagnosis supported by the clinical indicators: Anemia of chronic disease: inflammatory QUERY TEXT: PHYSICIAN'S DOCUMENTATION REQUEST Date of Query: 11/21/2022 12:22 PM EST Patient Name: Brad Gordon Admit Date: 11/18/2022 Dear Rico Mccann, A review of the medical record indicates additional documentation may be needed. Please review below and update the documentation accordingly. Clinical Indicators: Labs: Hgb/Hct on admission (11/18) - 9.1/28.6 Hgb/Hct on 11/19 - 8.2/26.1 Hgb/Hct on 11/20 - 7.7/25.0 Per provider notes: PMH unspecified anemia Per cardiology consult on 11/20: In terms of oral anticoagulation I am not sure if he is a good candidate better he is taking medicat ions given his significant anemia Consider transfusion to maintain hematocrit over 30 given his poor cardiac function. Based on the above, could you clarify which of the following is the most likely type of anemia you ar e evaluating, treating, and/or monitoring? Acute blood loss anemia Acute blood loss anemia with baseline chronic anemia Anemia of chronic disease indicate if deficiency or anemia due to chronic blood loss Other Unable to determine Other (explain) Clinically unable to determine (explain) Thank you, Elizabet Atkins, MS, RN, CCRN Use of terms such as suspected, likely, concern for, or probable (associated with a specific diagnosi s that is being evaluated, monitored, or treated as if it exists) are acceptable and can be coded in the inpatient se tting, when documented at the time of discharge. Please use your independent medical judgment in providing your response. THIS QUERY IS PART OF THE PERMANENT MEDICAL RECORD
--- NOTE | 2022-11-21 12:47 | MHC.SL.SWA ---
Speech Pathologist Impression: Oral phase dysphagia Risk of Aspiration Due to: Limited dentition Dysphasia Diet Status: Upgrade solids to NDD3. Diet order updated by SLAB MILLER OPERATOR, notified care team (RD, RN, MD) via Neon. Liquid Consistency and Strategies for Safe Swallow: Liquid Intake Recommendation: Thin Liquid Intake Strategies: Small Sips No Straws Solid Food Consistency: Dietary Recommendations: Chopped/Advanced (NDD3) Additional Modifications to Solid Foods: SLAB MILLER OPERATOR to f/u 1x to ensure tolerance. Oral Medication Intake: Whole with Liquid Please contact the pharmacy regarding appropriate crushable or liquid drug formulations that are available whenever modified delivery is recommended. Compensatory Strategies and Precautions to be Taken for Safe Swallow: Sitting Upright (90 deg) No Straw Small Bites and Sips Rate of Ingestion Change Oral Check Avoid Specific Foods Supervision While Eating and Drinking for Safe Swallow: Intermittent Supervision Foods to Avoid: Hard tough to chew solids Swallowing Recommended Treatments: Compens. Strategy Educat. Recommendation for Speech: 1 f/u Transition Advisor Clinican/Clinical Fellow: No Supervisory Statement: I have reviewed and agree with the student/clinical fellow's documentation: N/A Speech Language Pathologist: Summer Toscano M.A., CCC-SLAB MILLER OPERATOR
[2022-11-21 13:06] LABS: Appearance Urine Clear; Color Urine Yellow; Glucose Urine UA Negative (Negative); Leukocyte Esterase Urine Negative (Negative); Nitrite Urine Negative (Negative); PH 6.5 (5.0-9.0); Specific Gravity - Urine 1.025 (1.005-1.025); UMIC TRIGGER UA YES; Urine Blood Negative (Negative); Urine Ketones Trace mg/dL (Negative); Urine Protein 30 (1+) mg/dL (Neg-Trace)
[2022-11-21 13:11] LABS: Bacteria Urine None Seen (None Seen); Hyaline Casts Urine 0-2 /LPF (0-2); RBC Urine 0-2 /HPF (0-2); Squamous Epithelial Cell Urine 0-2 /HPF (0-2); WBC Urine 0-5 /HPF (0-5)
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
[2022-11-21] MEDS: Metoprolol Tartrate 50 MG TABLET PO ×3 (13:47→22:10)
--- NOTE | 2022-11-21 16:01 | MHC.CM.PN ---
Male 61 DX Rapid Afib, no discharge today per MD rounds. DP home with resumption of [facility]. Patient will require BLS transport.
[2022-11-21] MEDS: 0.9 % Sodium Chloride Flush 3 ML SYRINGE IVFLUSH ×2 (17:05→20:25)
--- NOTE | 2022-11-21 19:16 | PC.NURSE ---
Dressing on both lower legs changed, patient tolerated procedure well
[2022-11-21] MEDS: Gabapentin 300 MG CAPSULE PO (22:10)
[2022-11-21] MEDS: Atorvastatin Calcium 80 MG TABLET PO (22:10)
[2022-11-22 03:43] VITALS: BP 165/87; PULSE 91; RESP 20; TEMP 36.8; O2SAT 99
[2022-11-22] MEDS: Omeprazole 40 MG CAPSULE.DR PO (05:58)
[2022-11-22 06:59] LABS: Hematocrit 27.4 % (42.0-52.0); Hemoglobin 8.7 g/dl (14.0-18.0); Mean Corpuscular HGB Conc 31.8 g/dl (31.0-36.0); Mean Corpuscular Hemoglobin 26.6 pg (27.0-33.0); Mean Corpuscular Volume 83.8 fL (80.0-98.0); Mean Platelet Volume 8.6 fL (9.4-12.4); Platelet Count 422 X10*3/uL (160-400); Red Blood Count 3.27 X10*6/uL (4.60-5.80); Red Cell Distribution Width 16.3 % (11.0-16.0); White Blood Count 8.4 X10*3/uL (4.8-10.8)
[2022-11-22 07:13] VITALS: BP 157/84; PULSE 99; RESP 16; TEMP 37.1; O2SAT 94
[2022-11-22 07:30] LABS: Anion Gap 14 (12-20); Blood Urea Nitrogen 9 mg/dL (9-16); Carbon Dioxide 24 mmol/L (22-29); Chloride 102 mmol/L (96-108); Creatinine Clr Calc Pharmacy 123.4; Estimated Glomerular Filt Rate > 60; Glucose Fasting 83 mg/dL (60-99); Sodium 136 mmol/L (135-145)
[2022-11-22 07:33] LABS: Magnesium 1.4 mg/dL (1.6-2.6)
[2022-11-22] MEDS: Gabapentin 300 MG CAPSULE PO ×3 (09:06→20:11)
[2022-11-22] MEDS: Folic Acid 1 MG TABLET PO (09:06)
[2022-11-22] MEDS: Apixaban 5 MG TABLET PO ×2 (09:06→20:12)
[2022-11-22] MEDS: Ferrous Sulfate 324 MG TABLET.DR PO (09:06)
[2022-11-22] MEDS: Metoprolol Tartrate 50 MG TABLET PO (09:06)
[2022-11-22] MEDS: Digoxin 0.25 MG TABLET PO (09:06)
[2022-11-22] MEDS: Magnesium Oxide 400 MG TABLET PO ×2 (09:06→17:31)
[2022-11-22] MEDS: Magnesium Sulfate/H2O 2 GM/50 ML PIGGYBACK IV (09:07)
[2022-11-22] MEDS: Sodium Chloride Tab 1 GM TABLET PO ×3 (09:07→20:11)
[2022-11-22] MEDS: Thiamine HCL 100 MG TABLET PO (09:07)
[2022-11-22] MEDS: PHENobarbitaL 30 MG TABLET PO (09:07)
[2022-11-22] MEDS: 0.9 % Sodium Chloride Flush 3 ML SYRINGE IVFLUSH ×3 (09:07→20:18)
[2022-11-22] MEDS: HYDROmorphone HCl 2 MG TABLET 1 MG PO ×2 (09:22→19:09)
--- NOTE | 2022-11-22 10:02 | MHC.SL.DTX ---
Dysphagia Diet modifications: Changes made to current diet?: No Liquid Consistency and Strategies: Liquid Intake Recommendation: Thin Compensatory Strategies for Safe Swallow: Small Sips Compensatory Strategies for Safe Swallow(b): Sitting Upright (90 deg) Small Bites and Sips Rate of Ingestion Change Oral Check Avoid Specific Foods Solid Food Consistency: Dietary Recommendations: Chopped/Advanced (NDD3) Additional Modifications to Solids: Soft Bread sandwiches with Ground (NDD2) filling OK. Oral Medication Intake: Whole with Liquid Strategies and Precautions to be Taken for Safe Swallow: Sitting Upright (90 deg) Small Bites and Sips Rate of Ingestion Change Oral Check Avoid Specific Foods Supervision While Eating and/Drinking: Intermittent Supervision Foods to Avoid: Hard tough to chew solids Swallowing Recommended Treatments: Compens. Strategy Educat. Recommendation for Speech: Inpatient Speech Therapy Additional Comments: CXR 11/20 showed no acute pulmonary pathology Treatment: Pt resting comfortably in bed with no current complaints other than an eagerness to go home. He is noted to have several Tuna Sandwiches at bedside. He reports he is concerned over protein intake for wound care and requested them specifically. He demonstrated toleration of the soft bread sandwiches with ground filling with noted avoidance of the crust portion. He is missing front teeth and has trouble with the tearing and sheering component of feeding. He reports many compensatory strategies he uses at home and in the community, namely cutting items small. He tolerated Thin Liquids via straw with no overt s/s of aspiration. PIPED BUTTONHOLE MACHINE OPERATOR continues to recommend Dysphagia Advanced Solids (NDD3) and Thin Liquids to maximize nutritional intake under our care. Removing straw restriction given toleration. PIPED BUTTONHOLE MACHINE OPERATOR notified RD re: requests for protein supplements. Rigging Supervisor Clinican/Clinical Fellow: No Supervisory Statement: I have reviewed and agree with the student/clinical fellow's documentation: N/A Speech Language Pathologist: Cornel Hughes M.A., [facility]-PIPED BUTTONHOLE MACHINE OPERATOR
--- NOTE | 2022-11-22 10:15 | PM.PNCARD ---
Subjective Subjective Date of Service: 11/22/22 Interval history: Patient states he is feeling fine. He does not really have any cardiac symptoms at this time like angina or shortness of breath. He states he has absolutely wants to leave today. Do not think he understands seriousness of the situation. Review of Systems Review of Systems Yes all other systems are reviewed and are negative Constitutional: Reports as per HPI and Reports no additional constitutional complaints Eyes: Reports as per HPI and Denies no additional eye complaints Denies system reviewed and no additional complaints, except as documented and Reports as per HPI Cardiovascular: Reports as per HPI, Reports no additional cardiovascular complaints, Denies acrocyanosis, Denies cool extremities, Denies chest pain, Denies leg edema, Denies lightheadedness, Denies palpitations and Denies dyspnea Respiratory: Reports as per HPI, Denies no additional respiratory complaints and Denies dyspnea Gastrointestinal: Reports as per HPI and Denies no additional gastrointestinal complaints Genitourinary: Reports no additional male genitourinary complaints and Reports as per HPI Musculoskeletal: Reports no additional musculoskeletal complaints and Reports as per HPI Skin/Breast: Reports system reviewed and no additional complaints, except as docu Reports system reviewed and no additional complaints, except as documented and Reports as per HPI Psychiatric: Reports no additional psychiatric complaints and Reports as per HPI Endocrine: Reports no additional endocrine complaints, Reports as per HPI and Denies palpitations Hematologic/Lymphatic: Reports no additional hematologic/lymphatic complaints and Reports as per HPI Allergic/Immunologic: Reports no additional allergic/immunologic complaints and Reports as per HPI Physical Exam Vital Signs: Last Vital Signs Temp 98.8 F 11/22/22 07:13 Pulse 99 11/22/22 07:13 Resp 16 11/22/22 07:13 BP 157/84 H 11/22/22 07:13 Pulse Ox 94 11/22/22 07:13 O2 Del Method 11/22/22 07:13 BMI result Body Mass Index 23.8 Const General: comfortable and no acute distress Orientation/consciousness: patient oriented x3 HEENT Other: Unremarkable Head: Yes normal to inspection Neck Neck: Yes normal visual inspection Chest Chest palpation & inspection: normal inspection of the chest Resp Auscultation: clear to auscultation bilaterally Cardio Palpation: normal PMI Heart sounds: S1 normal heart sound present, S2 normal heart sound present, no gallops, no murmurs and no rubs GI Palpation (GI): Soft to palpation Back/Spine/Pelvis Other: unremarkable Skin General skin exam: no rashes or lesions noted Neuro General: patient oriented x3 Extrem General: Yes normal to inspection Psych Mental Status: mental status grossly normal Objective Labs and Meds 11/22/22 06:32 11/22/22 06:32 Lab results: Laboratory Results - last 24 hr 11/21/22 11/22/22 11/22/22 12:42 06:32 06:32 WBC 8.4 RBC 3.27 L Hgb 8.7 L Hct 27.4 L MCV 83.8 MCH 26.6 L MCHC 31.8 RDW 16.3 H Plt Count 422 H MPV 8.6 L Absolute Nucleated RBC 0.000 Nucleated RBC % (auto) 0.0 Sodium 136 Potassium 4.0 Chloride 102 Carbon Dioxide 24 Anion Gap 14 BUN 9 Creatinine 0.58 Estim Creat Clear Calc 123.4 Estimated GFR > 60 Fasting Glucose 83 Calcium 8.0 L Magnesium 1.4 L* Urine Color Yellow Urine Appearance Clear Urine pH 6.5 Ur Specific [place] 1.025 Urine Protein 30 (1+) H Urine Glucose (UA) Negative Urine Ketones Trace Urine Blood Negative Urine Nitrite Negative Ur Leukocyte Esterase Negative Urine RBC 0-2 Urine WBC 0-5 Ur Squamous Epith Cells 0-2 Urine Bacteria None Seen Hyaline Casts 0-2 Progress Note: A&P Assessment and plan (1) Atrial fibrillation with rapid ventricular response: Status: Acute Assessment and Plan: Ventricular rate about 100-110/Min. Overall, improved from before but still not ideal. He is on metoprolol 50 mg 4 times a day. Also on digoxin. Not clear if any alcohol withdrawal plays a role or not. We may have to go up further on the beta-miguel a dosing. (2) Cardiomyopathy: Status: Acute Assessment and Plan: Known to have severe cardiomyopathy. Thought to be some combination of ischemic as well as from tachycardia. However, not felt to be a good candidate for surgery. He is not have any active symptoms. Clinically, not in heart failure. In the past, it seems that due to low blood pressure had difficulty with meds. However, currently blood pressure is rather on the higher side and feel take, then probably KEVIN inhibitors, after beta-miguel a dose is optimal. (3) Coronary artery disease: Status: Acute Assessment and Plan: Likely medical management only. Denies angina. Plan Discussed with Dr. Longo. Time Spent With Patient Time: Total time managing care of this patient today 45 minutes. Progress Note: Quality Stroke Does the patient have a stroke diagnosis?: No Procedures Date of Service Date of Service: 11/22/22
--- NOTE | 2022-11-22 11:01 | MHC.CLN ---
NUTRITION ALERTED BY ETHICS INSTRUCTOR THAT PATIENT ASKING FOR HIGH PROTEIN SUPPLEMENT FOR WOUND HEALING PATIENT APPEARED SLEEPY AT TIME OF VISIT. RECEPTIVE TO TAKING ENSURE MAX PROTEIN. RD ADDING ENSURE MAX PROTEIN TID. PROVIDES ADDITIONAL 450 KCALS, 90 G PROTEIN. CONTINUES TREATMENT TO OLD KIRK TO LEGS.
[2022-11-22 11:02] VITALS: BP 108/62; PULSE 77; RESP 17; TEMP 36.8; O2SAT 99
[2022-11-22] MEDS: Iron Sucrose Complex 100 MG in 0.9 % Sodium Chloride 50 ML 220 MG IV (12:47)
--- NOTE | 2022-11-22 14:49 | P.PNIM_ITS ---
Subjective Subjective Date of Service: 11/23/22 Interval History: wants to go home denies chest pain, no palpitation. Review of Systems Review of Systems: Yes all other systems are reviewed and are negative Physical Exam Vital Signs: Vital Signs: Last Vital Signs Temp 98.3 F 11/22/22 11:02 Pulse 77 11/22/22 11:02 Resp 17 11/22/22 11:02 BP 108/62 11/22/22 11:02 Pulse Ox 99 11/22/22 11:02 O2 Del Method 11/22/22 11:02 BMI result Body Mass Index 23.8 Const: Other: General awake alert x3, resting comfortably in no acute distress.? Neck supple no JVD. CVS? irregular rate rhythm,no m/r/g Respiratory lungs clear to auscultation, no respiratory distress, no wheeze, no rhonchi. Gastrointestinal abdomen soft, nontender, bowel sounds audible, no guarding , no rigidity. Extremities both knees contraction deformity , dressing in place both lower extremities Neuro nonfocal, speech clear. Objective Data Active Medications Acetaminophen (Acetaminophen 325 Mg Tablet) 650 mg PO Q6H PRN PRN Reason: Pain, Mild (Pain Scale 1-3) Last Admin: 11/21/22 08:39 Dose: 650 mg Documented By: KALEB Apixaban (Apixaban 5 Mg Tablet) 5 mg PO BID [facility] Last Admin: 11/22/22 09:06 Dose: 5 mg Documented By: ASHWIN Atorvastatin Calcium (Atorvastatin Calcium 80 Mg Tablet) 80 mg PO BEDTIME [facility] Last Admin: 11/21/22 22:10 Dose: 80 mg Documented By: OSWALDO Albuterol Sulfate 2.5 mg/ (Ipratropium [place] 0.5 mg) 0 mg INHALE RQ4H WHILE AWAKE PRN PRN Reason: Shortness of Breath Digoxin (Digoxin 0.25 Mg Tablet) 0.25 mg PO DAILY [facility] Last Admin: 11/22/22 09:06 Dose: 0.25 mg Documented By: ASHWIN Ferrous Sulfate (Ferrous Sulfate 324 Mg Tablet.) 324 mg PO DAILY [facility] Last Admin: 11/22/22 09:06 Dose: 324 mg Documented By: ASHWIN Folic Acid (Folic Acid 1 Mg Tablet) 1 mg PO DAILY [facility] Last Admin: 11/22/22 09:06 Dose: 1 mg Documented By: ASHWIN Gabapentin (Gabapentin 300 Mg Capsule) 300 mg PO TID [facility] Last Admin: 11/22/22 09:06 Dose: 300 mg Documented By: ASHWIN Haloperidol (Haloperidol 1 Mg Tablet) 2 mg PO Q6H PRN PRN Reason: agitation, hallucinations Last Admin: 11/20/22 02:49 Dose: 2 mg Documented By: JEANNIE Hydromorphone HCl (Hydromorphone Hcl 2 Mg Tablet) 1 mg PO Q6H PRN PRN Reason: moderate pain Last Admin: 11/22/22 09:22 Dose: 1 mg Documented By: ASHWIN Iron Sucrose 100 mg/ Sodium (Chloride) 55 mls @ 220 mls/hr IV DAILY [facility] Stop: 11/23/22 09:14 Last Infusion: 11/22/22 13:20 Dose: 0 mls/hr Documented By: ASHWIN Magnesium Oxide (Magnesium Oxide 400 Mg Tablet) 400 mg PO BIDPC [facility] Last Admin: 11/22/22 09:06 Dose: 400 mg Documented By: ASHWIN Metoprolol Tartrate (Metoprolol Tartrate 25 Mg Tablet) 25 mg PO QID [facility]; Protocol Omeprazole (Omeprazole 40 Mg Capsule.Dr) 40 mg PO DAILY@0630 [facility] Last Admin: 11/22/22 05:58 Dose: 40 mg Documented By: ELVIN Ondansetron HCl (Ondansetron Hcl 4 Mg/2 Ml Vial) 4 mg IVPUSH Q8H PRN PRN Reason: Nausea and Vomiting Pharmacy Consult (Consult Rx Perform Med Rec) 1 each MISCELLANE ONCE PRN PRN Reason: Consult order Pharmacy Consult (Consult Rx Etoh Phenob Im/Po) 1 each MISCELLANE ONCE PRN; Protocol PRN Reason: Consult order Phenobarbital (Phenobarbital 30 Mg Tablet) 30 mg PO DAILY [facility]; Protocol Stop: 11/24/22 09:01 Sodium Chloride (0.9 % Sodium Chloride Flush 3 Ml Syringe) 3 ml IVFLUSH QSHIFT [facility] Last Admin: 11/22/22 09:07 Dose: 3 ml Documented By: ASHWIN Sodium Chloride (Sodium Chloride Tab 1 Gm Tablet) 1 gm PO TID [facility] Last Admin: 11/22/22 09:07 Dose: 1 gm Documented By: ASHWIN Thiamine HCl (Thiamine Hcl 100 Mg Tablet) 100 mg PO DAILY [facility] Last Admin: 11/22/22 09:07 Dose: 100 mg Documented By: ASHWIN Labs 11/22/22 06:32 11/22/22 06:32 Labs: Laboratory Results - last 24 hr 11/22/22 11/22/22 06:32 06:32 MCV 83.8 MCH 26.6 L MCHC 31.8 RDW 16.3 H Plt Count 422 H MPV 8.6 L Absolute Nucleated RBC 0.000 Nucleated RBC % (auto) 0.0 Anion Gap 14 Estim Creat Clear Calc 123.4 Estimated GFR > 60 Fasting Glucose 83 Calcium 8.0 L Magnesium 1.4 L* Microbiology Microbiology Results: Microbiology 11/20/22 08:15 Blood Culture - Preliminary Blood - Venous No growth after 48 hours. 11/20/22 08:11 Blood Culture - Preliminary Blood - Venous No growth after 48 hours. Assessment and Plan (1) A-fib: Status: Acute Plan 61 yo M with a PMH of Chronic persistent A. Fib on dig + eliquis, ca rdiomyopath/HFrEF with last EF around 20%, CAD with multivessle disease - deemed not a candidate for CABG due to comorbidities, alcohol abuse, lower extremity roberts who presented to the hospital after a mechanical fall.? He was noted to be confused and in A. Fib with RVR. Acute encephalopathy - possibly toxic/metabolic due to alcohol dependence with withdrawal, with background of alcohol related dementia continue phenobarb, ciwa 2 much improved hypo magnesemia on Mag oxide 400 b.i.d., magnesium 1.4 today, will give 2 g IV magnesium fever isolated, no evidence of sepsis/bacterial infection , No recurrent fevers monitor off abx chronic persistent afib with rvr question elevated ventricular rate likely related to alcohol withdrawal, now slowing down heart rate in 60s and 70s blood pressure 108/62 s/p dig 0.25mg iv q6h for 3 doses, now on 0.25mg po daily on lopressor 50mg q6h, will lower dose of Lopressor to 25 mg q.6 hours if heart rate remains low will decrease digoxin to 0.125 mg likely noncompliance with home medications being followed closely by Cardiology. normocytic anemia noted to have low iron 12 and saturation 5 will transfuse IV iron recommend outpatient Gastroenterology follow-up with Dr. Nguyen, negative stools occult study in August ischemic cardiomyopathy was previously recommended for CABG but deemed not to be surgical candidate continue eliquis, metoprolol and statin Chronic roberts / wound to the LE continue local care, wound care appreciated Full Code - patient more alert, able to have conversation and confirm DVT pptx, Eliquis reason for continued hospitalization:afib with rvr Time Spent With Patient Time: Total time managing care of this patient today ____ minutes. Quality Stroke Does the patient have a stroke diagnosis?: No VTE Prior VTE?: No VTE Risk Level:: Medical - moderate - high VTE Device Contraindication: Treatment Not Indicated VTE Drug Contraindication: N/A - Med Ordered
[2022-11-22 15:24] VITALS: BP 135/81; PULSE 96; RESP 16; TEMP 36.9; O2SAT 98
[2022-11-22] MEDS: Metoprolol Tartrate 25 MG TABLET PO ×2 (17:30→20:11)
[2022-11-22 19:35] VITALS: BP 140/91; PULSE 86; RESP 17; TEMP 36.6
[2022-11-22] MEDS: Atorvastatin Calcium 80 MG TABLET PO (20:11)
[2022-11-22 23:30] VITALS: BP 150/81; PULSE 86; RESP 20; TEMP 36.4; O2SAT 99
[2022-11-23] MEDS: HYDROmorphone HCl 2 MG TABLET 1 MG PO ×4 (01:20→20:49)
[2022-11-23 03:12] VITALS: BP 154/81; PULSE 108; RESP 18; TEMP 36.7; O2SAT 98
[2022-11-23] MEDS: Omeprazole 40 MG CAPSULE.DR PO (04:53)
[2022-11-23 07:32] VITALS: BP 133/94; PULSE 86; RESP 18; TEMP 36.8; O2SAT 99
[2022-11-23] MEDS: Gabapentin 300 MG CAPSULE PO ×3 (09:03→20:49)
[2022-11-23] MEDS: Sodium Chloride Tab 1 GM TABLET PO ×3 (09:04→20:50)
[2022-11-23] MEDS: Magnesium Oxide 400 MG TABLET PO ×2 (09:04→17:12)
[2022-11-23] MEDS: Folic Acid 1 MG TABLET PO (09:04)
[2022-11-23] MEDS: Ferrous Sulfate 324 MG TABLET.DR PO (09:04)
[2022-11-23] MEDS: PHENobarbitaL 30 MG TABLET PO (09:04)
[2022-11-23] MEDS: Thiamine HCL 100 MG TABLET PO (09:04)
[2022-11-23] MEDS: Apixaban 5 MG TABLET PO ×2 (09:04→20:50)
[2022-11-23] MEDS: 0.9 % Sodium Chloride Flush 3 ML SYRINGE IVFLUSH ×2 (09:05→17:12)
[2022-11-23] MEDS: Metoprolol Tartrate 100 MG TABLET PO ×2 (09:11→20:50)
[2022-11-23] MEDS: Digoxin 0.25 MG TABLET PO (09:11)
--- NOTE | 2022-11-23 09:46 | PM.PNCARD ---
Subjective Subjective Date of Service: 11/23/22 Interval history: He states he is feeling okay. No new complaints. However, atrial fibrillation rates are still fast. Review of Systems Review of Systems Yes all other systems are reviewed and are negative Constitutional: Reports as per HPI and Reports no additional constitutional complaints Eyes: Reports as per HPI and Denies no additional eye complaints Denies system reviewed and no additional complaints, except as documented and Reports as per HPI Cardiovascular: Reports as per HPI, Reports no additional cardiovascular complaints, Denies acrocyanosis, Denies cool extremities, Denies chest pain, Denies leg edema, Denies lightheadedness, Denies palpitations and Denies dyspnea Respiratory: Reports as per HPI, Denies no additional respiratory complaints and Denies dyspnea Gastrointestinal: Reports as per HPI and Denies no additional gastrointestinal complaints Genitourinary: Reports no additional male genitourinary complaints and Reports as per HPI Musculoskeletal: Reports no additional musculoskeletal complaints and Reports as per HPI Skin/Breast: Reports system reviewed and no additional complaints, except as docu Reports system reviewed and no additional complaints, except as documented and Reports as per HPI Psychiatric: Reports no additional psychiatric complaints and Reports as per HPI Endocrine: Reports no additional endocrine complaints, Reports as per HPI and Denies palpitations Hematologic/Lymphatic: Reports no additional hematologic/lymphatic complaints and Reports as per HPI Allergic/Immunologic: Reports no additional allergic/immunologic complaints and Reports as per HPI Physical Exam Vital Signs: Last Vital Signs Temp 98.2 F 11/23/22 07:32 Pulse 86 11/23/22 07:32 Resp 18 11/23/22 07:32 BP 133/94 H 11/23/22 07:32 Pulse Ox 99 11/23/22 07:32 O2 Del Method 11/23/22 07:32 BMI result Body Mass Index 23.8 Const General: comfortable and no acute distress Orientation/consciousness: patient oriented x3 HEENT Other: Unremarkable Head: Yes normal to inspection Neck Neck: Yes normal visual inspection Chest Chest palpation & inspection: normal inspection of the chest Resp Auscultation: clear to auscultation bilaterally Cardio Palpation: normal PMI Heart sounds: S1 normal heart sound present, S2 normal heart sound present, no gallops, no murmurs and no rubs GI Palpation (GI): Soft to palpation Back/Spine/Pelvis Other: unremarkable Skin General skin exam: no rashes or lesions noted Neuro General: patient oriented x3 Extrem General: Yes normal to inspection Psych Mental Status: mental status grossly normal Objective Labs and Meds 11/22/22 06:32 11/22/22 06:32 Progress Note: A&P Assessment and plan (1) Atrial fibrillation with rapid ventricular response: Status: Acute Assessment and Plan: Ventricular rates still fast. However, it seems that the metoprolol dose has been cut back 25 mg 4 times a day. We will need to increase it back to 50 mg 4 times a day. Also on digoxin. Additional option would be to add amiodarone for other rate control than rhythm control. Of note, he does have long-term blood pressure issues and med list actually has midodrine listed at home. If rate can be adequately controlled with meds, then potentially AV node ablation will need to be looked into. Correct magnesium. (2) Cardiomyopathy: Status: Acute Assessment and Plan: Known cardiomyopathy from combination ischemic/tachycardia induced. He is on medical management only. Not thought to be a good candidate for surgery. Not in active heart failure at this time. As an outpatient, it seems that due to low blood pressure, meds could be optimized. (3) Coronary artery disease: Status: Acute Assessment and Plan: Likely medical management only. Denies angina. (4) Anemia: Status: Acute Assessment and Plan: Probably multifactorial. Per hospitalist notes, on IV iron. (5) Alcohol abuse: Status: Acute Assessment and Plan: He states he has not had any alcohol in 3 months. Plan Discussed with Dr. Longo. Time Spent With Patient Time: Total time managing care of this patient today 45 minutes. Progress Note: Quality Stroke Does the patient have a stroke diagnosis?: No Procedures Date of Service Date of Service: 11/23/22
[2022-11-23] MEDS: Iron Sucrose Complex 100 MG in 0.9 % Sodium Chloride 50 ML 220 MG IV (11:02)
[2022-11-23] MEDS: Amiodarone HCL 200 MG TABLET 400 MG PO ×2 (11:02→20:50)
[2022-11-23 11:48] VITALS: BP 122/71; PULSE 79; RESP 18; TEMP 36.4; O2SAT 98
--- NOTE | 2022-11-23 13:41 | P.PNIM_ITS ---
Subjective Subjective Date of Service: 11/23/22 Interval History: offers no acute complaints of chest pain or palpitations, but all night has been looking at his monitor with heart rate in 120s , and this morning heart rate as high as up to 150, wants to leave today. Review of Systems Review of Systems: Yes all other systems are reviewed and are negative Physical Exam Vital Signs: Vital Signs: Last Vital Signs Temp 97.6 F 11/23/22 11:48 Pulse 79 11/23/22 11:48 Resp 18 11/23/22 11:48 BP 122/71 11/23/22 11:48 Pulse Ox 98 11/23/22 11:48 O2 Del Method 11/23/22 11:48 BMI result Body Mass Index 23.8 Const: Other: General awake alert x3, resting comfortably in no acute distress.? Neck supple no JVD. CVS? irregular rate rhythm,no m/r/g Respiratory lungs clear to auscultation, no respiratory distress, no wheeze, no rhonchi. Gastrointestinal abdomen soft, nontender, bowel sounds audible, no guarding , no rigidity. Extremities? both knees contraction deformity , dressing? in place both lower extremities Neuro nonfocal, speech clear. Objective Data Active Medications Acetaminophen (Acetaminophen 325 Mg Tablet) 650 mg PO Q6H PRN PRN Reason: Pain, Mild (Pain Scale 1-3) Last Admin: 11/21/22 08:39 Dose: 650 mg Documented By: KALEB Amiodarone HCl (Amiodarone Hcl 200 Mg Tablet) 400 mg PO BID [facility] Last Admin: 11/23/22 11:02 Dose: 400 mg Documented By: ASHWIN Apixaban (Apixaban 5 Mg Tablet) 5 mg PO BID [facility] Last Admin: 11/23/22 09:04 Dose: 5 mg Documented By: ASHWIN Atorvastatin Calcium (Atorvastatin Calcium 80 Mg Tablet) 80 mg PO BEDTIME [facility] Last Admin: 11/22/22 20:11 Dose: 80 mg Documented By: BETO Albuterol Sulfate 2.5 mg/ (Ipratropium Carmel 0.5 mg) 0 mg INHALE RQ4H WHILE AWAKE PRN PRN Reason: Shortness of Breath Digoxin (Digoxin 0.25 Mg Tablet) 0.25 mg PO DAILY [facility] Last Admin: 11/23/22 09:11 Dose: 0.25 mg Documented By: ASHWIN Ferrous Sulfate (Ferrous Sulfate 324 Mg Tablet.) 324 mg PO DAILY [facility] Last Admin: 11/23/22 09:04 Dose: 324 mg Documented By: ASHWIN Folic Acid (Folic Acid 1 Mg Tablet) 1 mg PO DAILY [facility] Last Admin: 11/23/22 09:04 Dose: 1 mg Documented By: ASHWIN Gabapentin (Gabapentin 300 Mg Capsule) 300 mg PO TID [facility] Last Admin: 11/23/22 09:03 Dose: 300 mg Documented By: ASHWIN Haloperidol (Haloperidol 1 Mg Tablet) 2 mg PO Q6H PRN PRN Reason: agitation, hallucinations Last Admin: 11/20/22 02:49 Dose: 2 mg Documented By: JEANNIE Hydromorphone HCl (Hydromorphone Hcl 2 Mg Tablet) 1 mg PO Q6H PRN PRN Reason: moderate pain Last Admin: 11/23/22 08:13 Dose: 1 mg Documented By: ASHWIN Magnesium Oxide (Magnesium Oxide 400 Mg Tablet) [facility] Admin: 11/23/22 09:04 Dose: 400 mg Documented By: ASHWIN Metoprolol Tartrate (Metoprolol Tartrate 100 Mg Tablet) 100 mg PO BID [facility]; Protocol Last Admin: 11/23/22 09:11 Dose: 100 mg Documented By: ASHWIN Omeprazole (Omeprazole 40 Mg Capsule.) 40 mg PO DAILY@0630 [facility] Last Admin: 11/23/22 04:53 Dose: 40 mg Documented By: BETO Ondansetron HCl (Ondansetron Hcl 4 Mg/2 Ml Vial) 4 mg IVPUSH Q8H PRN PRN Reason: Nausea and Vomiting Pharmacy Consult (Consult Rx Perform Med Rec) 1 each MISCELLANE ONCE PRN PRN Reason: Consult order Pharmacy Consult (Consult Rx Etoh Phenob Im/Po) 1 each MISCELLANE ONCE PRN; Protocol PRN Reason: Consult order Phenobarbital (Phenobarbital 30 Mg Tablet) 30 mg PO DAILY [facility]; Protocol Stop: 11/24/22 09:01 Last Admin: 11/23/22 09:04 Dose: 30 mg Documented By: ASHWIN Sodium Chloride (0.9 % Sodium Chloride Flush 3 Ml Syringe) 3 ml IVFLUSH QSHIFT [facility] Last Admin: 11/23/22 09:05 Dose: 3 ml Documented By: ASHWIN Sodium Chloride (Sodium Chloride Tab 1 Gm Tablet) 1 gm PO TID [facility] Last Admin: 11/23/22 09:04 Dose: 1 gm Documented By: ASHWIN Thiamine HCl (Thiamine Hcl 100 Mg Tablet) 100 mg PO DAILY [facility] Last Admin: 11/23/22 09:04 Dose: 100 mg Documented By: ASHWIN Labs 11/22/22 06:32 11/22/22 06:32 Microbiology Microbiology Results: Microbiology 11/18/22 04:47 Blood Culture - Final Blood - Venous No growth after 5 days. 11/18/22 04:49 Blood Culture - Final Blood - Venous No growth after 5 days. 11/20/22 08:15 Blood Culture - Preliminary Blood - Venous No growth after 48 hours. 11/20/22 08:11 Blood Culture - Preliminary Blood - Venous No growth after 48 hours. Assessment and Plan (1) A-fib: Status: Acute Plan 61 yo M with a PMH of Chronic persistent A. Fib on dig + eliquis, cardiomyopath/ HFrEF with last EF around 20%, CAD with multivessle disease - deemed not a candidate for CABG due to comorbidities, alcohol abuse, lower extremity roberts who presented to the hospital after a mechanical fall.? He was noted to be confused and in A. Fib with RVR. Acute encephalopathy - possibly toxic/metabolic resolved ? due to alcohol dependence with withdrawal, patient denies recent use of alcoho l,hx of alcohol related dementia continue phenobarb hypo magnesemia on Mag oxide 400 b.i.d., magnesium 1.4 today, s/p 2 g IV magnesium fever isolated 1episode , no evidence of sepsis/bacterial infection , No recurrent fevers monitor off abx chronic persistent afib with rvr persistent elevated ventricular rate , patient denies use of alcohol dose of metoprolol lowered to 25 mg q.6 hour yesterday due to heart rate in 60s and 70s blood pressure 108/62 this morning heart rate in 130-150 range case discussed with Cardiology they recommend metoprolol 100 mg b.i.d. and amiodarone 400 mg b.i.d. loading does continue digoxin 0.25 mg daily continue close telemetry following, history of hypotension was on midodrine follow closely for hypotension normocytic anemia noted to have low iron 12 and saturation 5 receiving IV iron day 2 recommend outpatient Gastroenterology follow-up with Dr. Nguyen, negative stools occult study in August ischemic cardiomyopathy was previously recommended for CABG but deemed not to be surgical candidate continue eliquis, metoprolol and statin Chronic roberts / wound to the LE continue local care, wound care appreciated, recommend range of motion exercises at Full Code - DVT pptx, Eliquis reason for continued hospitalization:afib with rvr Time Spent With Patient Time: Total time managing care of this patient today ____ minutes. Quality Stroke Does the patient have a stroke diagnosis?: No VTE Prior VTE?: No VTE Risk Level:: Medical - moderate - high VTE Device Contraindication: Treatment Not Indicated VTE Drug Contraindication: N/A - Med Ordered
[2022-11-23 14:05] VITALS: BMI 23.8
--- NOTE | 2022-11-23 14:11 | MHC.CLN ---
NUTRITION CONSULT CONSULT FOR SKIN INTEGRITY. STAGE II TO COCCYX AND OLD KIRK TO LOWER EXTREMITIES. ADDED ENSURE MAX PROTEIN TID PER PRIOR CONVERSATION WITH PATIENT. ENSURE MAX PROTEIN TID PROVIDES ADDITIONAL 450 KCALS, 90 G PROTEIN. SUPPLEMENT TO PROMOTE WOUND HEALING. VARIABLE INTAKE AT MEALS, 25-100% SEE CLINICAL NUTRITION ASSESSMENT 11/23/22.
[2022-11-23 15:12] VITALS: BP 162/81; PULSE 76; RESP 17; TEMP 36.7; O2SAT 98
--- NOTE | 2022-11-23 15:43 | MHC.CM.PN ---
Male 61 DX Confusion Per MD rounds not ready for discharge. DP home resumption of [facility]. BLS to transport.
[2022-11-23 19:02] VITALS: BP 152/84; PULSE 96; RESP 18; TEMP 36.7; O2SAT 99
[2022-11-23] MEDS: Atorvastatin Calcium 80 MG TABLET PO (20:50)
[2022-11-23] MEDS: traZODone HCL 50 MG TABLET PO (21:21)
[2022-11-23] MEDS: Acetaminophen 325 MG TABLET 650 MG PO (21:21)
[2022-11-23 23:25] VITALS: BP 104/61; PULSE 64; RESP 18; TEMP 36.7; O2SAT 96
[2022-11-24 03:04] VITALS: BP 144/75; PULSE 72; RESP 18; TEMP 36.5; O2SAT 96
[2022-11-24] MEDS: HYDROmorphone HCl 2 MG TABLET 1 MG PO ×2 (03:05→09:13)
[2022-11-24] MEDS: Acetaminophen 325 MG TABLET 650 MG PO (03:11)
[2022-11-24] MEDS: Omeprazole 40 MG CAPSULE.DR PO (06:23)
[2022-11-24 07:21] VITALS: BP 140/81; PULSE 74; RESP 18; TEMP 36.3; O2SAT 96
[2022-11-24] MEDS: Magnesium Oxide 400 MG TABLET PO (08:29)
[2022-11-24] MEDS: Digoxin 0.25 MG TABLET PO (08:29)
[2022-11-24] MEDS: Folic Acid 1 MG TABLET PO (08:29)
[2022-11-24] MEDS: PHENobarbitaL 30 MG TABLET PO (08:29)
[2022-11-24] MEDS: Amiodarone HCL 200 MG TABLET 400 MG PO (08:29)
[2022-11-24] MEDS: Gabapentin 300 MG CAPSULE PO (08:29)
[2022-11-24] MEDS: Thiamine HCL 100 MG TABLET PO (08:29)
[2022-11-24] MEDS: Metoprolol Tartrate 100 MG TABLET PO (08:29)
[2022-11-24] MEDS: Ferrous Sulfate 324 MG TABLET.DR PO (08:29)
[2022-11-24] MEDS: Apixaban 5 MG TABLET PO (08:29)
[2022-11-24] MEDS: Sodium Chloride Tab 1 GM TABLET PO (08:29)
--- NOTE | 2022-11-24 10:07 | PM.PNCARD ---
Subjective Subjective Date of Service: 11/24/22 Interval history: He states that he feels well. No cardiac complaints. Review of Systems Review of Systems Yes all other systems are reviewed and are negative Constitutional: Reports as per HPI and Reports no additional constitutional complaints Eyes: Reports as per HPI and Denies no additional eye complaints Denies system reviewed and no additional complaints, except as documented and Reports as per HPI Cardiovascular: Reports as per HPI, Reports no additional cardiovascular complaints, Denies acrocyanosis, Denies cool extremities, Denies chest pain, Denies leg edema, Denies lightheadedness, Denies palpitations and Denies dyspnea Respiratory: Reports as per HPI, Denies no additional respiratory complaints and Denies dyspnea Gastrointestinal: Reports as per HPI and Denies no additional gastrointestinal complaints Genitourinary: Reports no additional male genitourinary complaints and Reports as per HPI Musculoskeletal: Reports no additional musculoskeletal complaints and Reports as per HPI Skin/Breast: Reports system reviewed and no additional complaints, except as docu Reports system reviewed and no additional complaints, except as documented and Reports as per HPI Psychiatric: Reports no additional psychiatric complaints and Reports as per HPI Endocrine: Reports no additional endocrine complaints, Reports as per HPI and Denies palpitations Hematologic/Lymphatic: Reports no additional hematologic/lymphatic complaints and Reports as per HPI Allergic/Immunologic: Reports no additional allergic/immunologic complaints and Reports as per HPI Physical Exam Vital Signs: Last Vital Signs Temp 97.4 F 11/24/22 07:21 Pulse 74 11/24/22 07:21 Resp 18 11/24/22 07:21 BP 140/81 H 11/24/22 07:21 Pulse Ox 96 11/24/22 07:21 O2 Del Method 11/24/22 07:21 BMI result Body Mass Index 23.8 Const General: comfortable and no acute distress Orientation/consciousness: patient oriented x3 HEENT Other: Unremarkable Head: Yes normal to inspection Neck Neck: Yes normal visual inspection Chest Chest palpation & inspection: normal inspection of the chest Resp Auscultation: clear to auscultation bilaterally Cardio Palpation: normal PMI Heart sounds: S1 normal heart sound present, S2 normal heart sound present, no gallops, no murmurs and no rubs GI Palpation (GI): Soft to palpation Back/Spine/Pelvis Other: unremarkable Skin General skin exam: no rashes or lesions noted Neuro General: patient oriented x3 Extrem General: Yes normal to inspection Psych Mental Status: mental status grossly normal Objective Labs and Meds 11/22/22 06:32 11/22/22 06:32 Progress Note: A&P Assessment and plan (1) Atrial fibrillation with rapid ventricular response: Status: Acute Assessment and Plan: His ventricular rates were still high in spite of metoprolol 50 mg 4 times a day as well as digoxin. Hence, added amiodarone for rate control purposes. Today, rates are between 70-90/Min. Still remains in atrial fibrillation. This has been long-term unlikely to convert. Otherwise, continue anticoagulation. May stop digoxin. Follow-up in the clinic. (2) Cardiomyopathy: Status: Acute Assessment and Plan: Known cardiomyopathy from combination off ischemic/tachycardia induced. Medical management only. In the past, blood pressure has been an issue and hence it seems he was not on optimal guideline based therapy. Also, elements of noncompliance. Currently, blood pressure seems more stable. If he is able to maintain adequate follow-up then, can optimize as an outpatient. (3) Coronary artery disease: Status: Acute Assessment and Plan: Seems stable. Again medical management only. (4) Anemia: Status: Acute Assessment and Plan: Probably multifactorial. Per hospitalist notes, on IV iron. (5) Alcohol abuse: Status: Acute Assessment and Plan: He states he has not had any alcohol in 3 months. Plan Discussed with Makayla Pittman. Time Spent With Patient Time: Total time managing care of this patient today ____ minutes. Progress Note: Quality Stroke Does the patient have a stroke diagnosis?: No Procedures Date of Service Date of Service: 11/24/22
[2022-11-24 10:16] LABS: Magnesium 1.5 mg/dL (1.6-2.6)
[2022-11-24] MEDS: Magnesium Sulfate/H2O 2 GM/50 ML PIGGYBACK IV (10:35)
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
--- NOTE | 2022-11-24 11:05 | PC.NURSE ---
Addendum entered by Anmol Hines RN 11/24/22 11:10: pt waited for d/c to finalize, pt did not leave AMA. all belongings with pt. Iv removed. tele removed. d/c paperwork was gone over with pt Original Note: Pt refused to recieve full dose of IV Mag despite education. Pt informed MD he is going to leave around 1100 whether its AMA or d/c.
--- NOTE | 2022-11-24 11:09 | MHC.CM.PN ---
Patient has been medically cleared for dc to home today with services. [facility] been [facility] of today's dc.
== END 2022-11-24 11:10 | disposition home health service (06) | DRG 201 ==
LOC: HO.ED 06:56 → HO.EDOVER 08:48 → HO.IMC 11:55
PROVIDERS: Hospitalist; Internal Medicine; Student in an Organized Health Care Education/Training Program; Admitting Provider Family Medicine; Emergency Provider Emergency Medicine Emergency Medical Services; PCP Nurse Practitioner Family; Visit Provider Physician Assistant Medical
DX: I48.19 Other persistent atrial fibrillation (principal); G92.8 Other toxic encephalopathy; F10.27 Alcohol dependence with alcohol-induced persisting dementia; D63.8 Anemia in other chronic diseases classified elsewhere; I50.22 Chronic systolic (congestive) heart failure; I11.0 Hypertensive heart disease with heart failure; J44.9 Chronic obstructive pulmonary disease, unspecified; F10.239 Alcohol dependence with withdrawal, unspecified; T24.002D Burn of unspecified degree of unspecified site of left lower limb, except ankle and foot, subsequent encounter; T24.001D Burn of unspecified degree of unspecified site of right lower limb, except ankle and foot, subsequent encounter; W39.XXXD Discharge of firework, subsequent encounter; E83.42 Hypomagnesemia; I25.10 Atherosclerotic heart disease of native coronary artery without angina pectoris; I25.5 Ischemic cardiomyopathy; Z20.822 Contact with and (suspected) exposure to COVID-19; Z91.81 History of falling; Z79.01 Long term (current) use of anticoagulants; Z79.899 Other long term (current) drug therapy
CPT/HCPCS: 0241U; 36415; 70450; 71045; 71250; 72125; 74176; 80048; 80053; 80076; 80307; 81001; 81003; 82077; 83605; 83735; 83880; 84484; 85025; 85027; 87040; 92526; 92610; 93005; 99285; J0696; J1160; J1756; J2060; J2560; J3475

== ENCOUNTER 2023-01-03 18:28 | Inpatient (IN) | payer OTHER, SELFPAY ==
[2023-01-03] VITALS (7 sets, daily range): BP systolic 107–145; BP diastolic 85–99; PULSE 87–155; RESP 16–20; TEMP 36.5–36.8; O2SAT 97–100; BMI 23.5
--- NOTE | 2023-01-03 | ECG_ITS ---
Test Reason : tachycardia Blood Pressure : / mmHG Vent. Rate : 147 BPM Atrial Rate : 000 BPM P-R Int : 000 ms QRS Dur : 144 ms QT Int : 290 ms P-R-T Axes : 000 054 076 degrees QTc Int : 453 ms Atrial fibrillation with rapid ventricular response Right bundle branch block Inferior infarct (cited on or before 24-JUL-2021) Abnormal ECG When compared with ECG of 18-NOV-2022 23:13, increase in ventricular rate Referred By: Cindy Keys Electronically Signed By:IHSAN BERGMAN
--- NOTE | ~2023-01-03 | CT_ITS ---
EXAMINATION: CT ANGIOGRAM ABDOMEN AND PELVIS WITH RUN-OFF CLINICAL INFORMATION: Peripheral vascular disease with nonhealing ulceration of the lower extremity. COMPARISON: 11/26/2021 TECHNIQUE: Multiple axial images were obtained through the abdomen, pelvis, and lower extremities following the administration of 100 mL of Omnipaque 350 intravenous contrast. Sagittal, coronal, and MIP oblique sagittal reformatted images were obtained on the CT workstation, uploaded to PACS, and reviewed. Images were evaluated on independent dedicated 3-D workstation and 3-D images were reconstructed with concurrent radiologist supervision and subsequently interpreted. This CT examination was performed using dose optimization techniques as appropriate, variously including the following: *Automated exposure control *Adjustment of mA and/or kV according to patient size (this includes techniques or standardized protocols for targeted exams where dose is matched to indication/reason for exam; i.e. extremities or head) *Use of iterative reconstruction technique DLP: 453.73 mGy-cm FINDINGS: VASCULATURE: Aorta: Normal in caliber. Scattered calcified plaque without significant stenosis. Calcified plaque is seen at the ostium of the celiac artery and superior mesenteric artery with moderate stenoses. Inferior mesenteric artery is patent. Calcified plaque is seen at the ostium of the bilateral renal arteries with mild to moderate stenosis in the right and moderate to severe stenosis on the left Right iliac arteries: Heavily calcified plaque is seen at the ostium of the right common iliac artery with underlying severe stenosis. The external iliac artery and internal iliac artery demonstrates scattered calcified plaque without significant stenosis Left iliac arteries: Heavily calcified plaque is seen in the proximal left common iliac artery with moderate stenosis. The external iliac artery and internal iliac artery demonstrate to scattered calcified plaque without significant stenosis Right lower extremity: Heavily calcified plaque is seen occluding of the right common femoral artery. Diffuse calcified plaque is seen throughout the superficial femoral artery with chronic total occlusion. Patent flow is seen within the profunda femoral artery branches. Reconstituted flow is seen within the P2 and P3 segments of the popliteal artery with scattered atherosclerotic plaque present. Evaluation of the below-knee runoff is suboptimal however there appears to be moderate to severe stenosis in the proximal anterior tibial artery with patent flow through the mid and distal calf extending into the dorsalis pedis artery. Occlusive changes seen in the peroneal artery and posterior tibial artery Left lower extremity: Heavily calcified plaque is seen in the common femoral artery with critical stenosis to possible occlusion. There is chronic total occlusion of the entire left superficial femoral artery and popliteal artery due to heavily calcified plaque. Minimal reconstituted flow is seen within the anterior tibial artery in the proximal calf. Patent flow is seen extending into the dorsalis pedis artery. The posterior tibial artery and peroneal artery appear occluded NONVASCULAR: Lung bases are clear. Solid abdominal organs are unremarkable. Bowel loops are unremarkable. No free fluid seen in the abdomen and pelvis. Urinary bladder is unremarkable. No pathologic lymphadenopathy or mass lesion seen in the abdomen and pelvis. Osseous structures are intact. Degenerative disc disease seen in the lower lumbar spine. CT/CT angio abd aorta runoff IMPRESSION: 1. Heavily calcified plaque at the ostium of the right common iliac artery with underlying severe stenosis. Heavily calcified plaque in the right common femoral artery with chronic total occlusion of the right superficial femoral artery. Reconstituted flow is seen in the right popliteal artery. Evaluation of the below-knee runoff is suboptimal however there appears to be moderate to severe stenosis in the proximal anterior tibial artery. Occlusive changes seen in the right peroneal and posterior tibial arteries. Findings have progressed compared to the prior exam with worsening occlusion of the superficial femoral artery and below-knee runoff vessels 2. Heavily calcified plaque in the left common iliac artery with moderate stenosis. Heavily calcified plaque in the left common femoral artery with critical stenosis to possible occlusion. Chronic total occlusion of the left superficial femoral artery and popliteal artery. Minimal reconstituted flow in the proximal anterior tibial artery. The posterior tibial and peroneal arteries appear occluded. Findings have progressed compared to the prior exam with worsening occlusion of the popliteal artery and below-knee runoff vessels 3. 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 Moderate to severe stenosis of the left renal artery.
--- NOTE | ~2023-01-03 | XR_ITS ---
EXAMINATION: XR CHEST CLINICAL INFORMATION: Rule out pulmonary edema. COMPARISON: 11/20/2022 TECHNIQUE: Frontal view of the chest was obtained. FINDINGS: Cardiac leads overlie the chest. The lungs are well expanded. There is no focal consolidation, edema, or effusion. No pneumothorax. The cardiomediastinal silhouette is within normal limits. No acute osseous abnormality. XR/XR chest 1V IMPRESSION: No acute pulmonary disease.
[2023-01-03 19:26] LABS: MANUAL DIFF FLAG NO
[2023-01-03 19:28] LABS: Basophils Absolute Auto 0.1 X10*3/uL (0.0-0.2); Basophils Percent Auto 0.6 % (0-2); Eosinophils Percent Auto 0.4 % (0-4); Hematocrit 34.8 % (42.0-52.0); Hemoglobin 10.7 g/dl (14.0-18.0); Imm Gran Abs Auto 0.03 X10*3/uL (0.00-0.03); Imm Gran Pct Auto 0.4 % (0.0-0.4); Lymphocytes Absolute Auto 1.1 X10*3/uL (1.2-4.9); Lymphocytes Percent Auto 13.4 % (20-40); Mean Corpuscular HGB Conc 30.7 g/dl (31.0-36.0); Mean Corpuscular Hemoglobin 24.4 pg (27.0-33.0); Mean Corpuscular Volume 79.5 fL (80.0-98.0); Mean Platelet Volume 8.2 fL (9.4-12.4); Monocytes Absolute Auto 0.8 X10*3/uL (0.1-1.2); Monocytes Percent Auto 9.4 % (2-11); Neutrophils Absolute Auto 6.2 x10*3/uL (2.0-8.3); Neutrophils Percent Auto 75.8 % (45-73); Platelet Count 349 X10*3/uL (160-400); Red Blood Count 4.38 X10*6/uL (4.60-5.80); Red Cell Distribution Width 18.3 % (11.0-16.0); White Blood Count 8.2 X10*3/uL (4.8-10.8)
[2023-01-03] MEDS: Metoprolol Tartrate 5 MG/5 ML VIAL IVPUSH (19:28)
[2023-01-03 19:35] LABS: INTERNATIONAL NORM RATIO 1.2 (0.9-1.1); Prothrombin Time 14.2 SEC (10.0-13.1)
[2023-01-03 19:45] LABS: Lactic Acid 2.7 mmol/L (0.5-2.0)
[2023-01-03 19:51] LABS: Troponin-I High Sensitivity 14.6 ng/L (<3.5-35.0)
[2023-01-03 19:59] LABS: Alanine Aminotransferase < 5 U/L (0-40); Alkaline Phosphatase 107 U/L (39-117); Anion Gap 16 (12-20); Aspartate Amino Transferase 25 U/L (5-37); Bilirubin Direct 0.3 mg/dL (0.0-0.5); Bilirubin Total 0.6 mg/dL (0.0-1.0); Blood Urea Nitrogen 16 mg/dL (9-16); Carbon Dioxide 22 mmol/L (22-29); Chloride 104 mmol/L (96-108); Creatinine Clr Calc Pharmacy 90.6; Estimated Glomerular Filt Rate > 60; Glucose Random 116 mg/dL (60-115); Magnesium 1.3 mg/dL (1.6-2.6); Potassium 3.7 mmol/L (3.3-5.1); Sodium 138 mmol/L (135-145); Total Protein 6.2 g/dL (6.5-8.0)
[2023-01-03 20:05] LABS: TSH reflex Free T4 12.34 uIU/mL (0.32-4.0)
[2023-01-03] MEDS: Amiodarone HCL 200 MG TABLET PO (20:22)
[2023-01-03] MEDS: Magnesium Sulfate/H2O 2 GM/50 ML PIGGYBACK IV (20:25)
[2023-01-03] MEDS: dilTIAZem HCL 50 MG/10 ML VIAL 20 MG IVPUSH (20:27)
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
[2023-01-03] MEDS: Morphine Sulfate 2 MG/ML CARTRIDGE IVPUSH (20:42)
[2023-01-03 20:51] LABS: Free T4 (Free Thyroxine) 1.06 ng/dL (0.71-1.85)
[2023-01-03 21:24] LABS: Reflex Lactate? Lactic Acid Added
[2023-01-03 21:39] LABS: B Type Natriuretic Peptide 303 pg/mL (<100)
--- NOTE | 2023-01-03 21:42 | PHA.MEDREC ---
Pharmacy Consult ? Medication Reconciliation Pharmacy has completed the medication reconciliation. Pt is a poor historian. He comes in with list from discharge on 11/23/22 and says it's mostly accurate . When I question him about different medications he's filled since then he says if the pharmacy gave them to him he must be taking them. Discharge list and claim history used to complete med rec.
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
[2023-01-03] MEDS: Furosemide 20 MG TABLET PO (22:28)
[2023-01-03] MEDS: Metoprolol Tartrate 100 MG TABLET PO (22:28)
[2023-01-03] MEDS: Apixaban 5 MG TABLET PO (22:29)
[2023-01-03] MEDS: HYDROmorphone HCl 0.5 MG/0.5 ML SYRINGE IVPUSH (22:29)
[2023-01-03] MEDS: Atorvastatin Calcium 40 MG TABLET PO (22:29)
[2023-01-03 22:59] LABS: ~Lactic Acid-LAB USE ONLY 2.1 mmol/L (0.5-2.0)
[2023-01-04] VITALS (8 sets, daily range): BP systolic 115–145; BP diastolic 63–95; PULSE 80–117; RESP 17–21; TEMP 36.5–37.7; O2SAT 96–99; BMI 22.5
[2023-01-04] MEDS: Gabapentin 300 MG CAPSULE PO ×4 (00:07→21:40)
[2023-01-04] MEDS: 0.9 % Sodium Chloride Flush 3 ML SYRINGE IVFLUSH ×4 (00:08→21:40)
[2023-01-04 00:40] LABS: Reflex Lactate? 2 Y
[2023-01-04 01:13] LABS: ~Lactic Acid-LAB USE ONLY 2.2 mmol/L (0.5-2.0)
[2023-01-04] MEDS: Omeprazole 40 MG CAPSULE.DR PO (05:45)
[2023-01-04 06:38] LABS: Magnesium 1.6 mg/dL (1.6-2.6)
--- NOTE | 2023-01-04 08:11 | PC.NURSE ---
Pt up to floor with Transporter, urinal emptied at 300ml
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
[2023-01-04] MEDS: Furosemide 20 MG TABLET PO (10:20)
[2023-01-04] MEDS: Amiodarone HCL 200 MG TABLET PO (10:21)
[2023-01-04] MEDS: Metoprolol Tartrate 100 MG TABLET PO ×2 (10:21→21:40)
[2023-01-04] MEDS: Magnesium Oxide 400 MG TABLET PO ×2 (10:21→17:35)
[2023-01-04] MEDS: Thiamine HCL 100 MG TABLET PO (10:21)
[2023-01-04] MEDS: Apixaban 5 MG TABLET PO ×2 (10:21→21:40)
[2023-01-04] MEDS: Folic Acid 1 MG TABLET PO (10:21)
[2023-01-04] MEDS: Sodium Chloride Tab 1 GM TABLET PO ×3 (10:21→21:40)
--- NOTE | 2023-01-04 12:47 | MHC.CM.PN ---
RUSTY 01/04. Pt on observation with dx A-fib with RVR. Pt lives alone, is wheelchair bound and receives VNA services from [facility] for wound care. Pt will need transportation arranged upon discharge. PCP: Antonino Mcclain Vax: Moderna x 1, Pfizer x 2
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
--- NOTE | 2023-01-04 17:38 | P.PNIM_ITS ---
Subjective Subjective Date of Service: 01/05/23 Interval History: afib ,leg ulcer s chronic Review of Systems Denies any chest pain or shortness of breath palpitations. Physical Exam Vital Signs: Vital Signs: Last Vital Signs Temp 98.0 F 01/04/23 15:02 Pulse 94 01/04/23 15:02 Resp 21 H 01/04/23 15:02 BP 115/75 01/04/23 15:02 Pulse Ox 99 01/04/23 15:02 O2 Del Method Room Air 01/04/23 15:02 BMI result Body Mass Index 22.5 Appearance: Alert.? Oriented X3.? not in distress.? cvs: irregular rythem, [id number] . res: clear to auscultation ,no rhonchii or wheezing abd: no rebound or guarding ,nt, bs present. ext pulses present , no cyanosis. neuro: axo3 , nonfocal. Objective Data Active Medications Acetaminophen (Acetaminophen 325 Mg Tablet) 650 mg PO Q6H PRN PRN Reason: Pain, Mild (Pain Scale 1-3) Amiodarone HCl (Amiodarone Hcl 200 Mg Tablet) 200 mg PO DAILY [facility] Last Admin: 01/04/23 10:21 Dose: 200 mg Documented By: ARASH Apixaban (Apixaban 5 Mg Tablet) 5 mg PO BID [facility] Last Admin: 01/04/23 10:21 Dose: 5 mg Documented By: ARASH Atorvastatin Calcium (Atorvastatin Calcium 40 Mg Tablet) 40 mg PO BEDTIME [facility] Last Admin: 01/03/23 22:29 Dose: 40 mg Documented By: DOMO Docusate Sodium (Docusate Sodium 100 Mg Capsule) 100 mg PO DAILY PRN PRN Reason: Constipation Folic Acid (Folic Acid 1 Mg Tablet) 1 mg PO DAILY [facility] Last Admin: 01/04/23 10:21 Dose: 1 mg Documented By: ARASH Furosemide (Furosemide 20 Mg Tablet) 20 mg PO DAILY [facility]; Protocol Last Admin: 01/04/23 10:20 Dose: 20 mg Documented By: ARASH Gabapentin (Gabapentin 300 Mg Capsule) 300 mg PO TID [facility] Last Admin: 01/04/23 15:47 Dose: 300 mg Documented By: ARASH Magnesium Oxide (Magnesium Oxide 400 Mg Tablet) 400 mg PO BIDPC [facility] Last Admin: 01/04/23 17:35 Dose: 400 mg Documented By: ARASH Metoprolol Tartrate (Metoprolol Tartrate 100 Mg Tablet) 100 mg PO BID [facility]; Protocol Last Admin: 01/04/23 10:21 Dose: 100 mg Documented By: ARASH Omeprazole (Omeprazole 40 Mg Capsule.Dr) 40 mg PO DAILY@0630 [facility] Last Admin: 01/04/23 05:45 Dose: 40 mg Documented By: DOMO Ondansetron HCl (Ondansetron Hcl 4 Mg/2 Ml Vial) 4 mg IVPUSH Q8H PRN PRN Reason: Nausea and Vomiting Silver Sulfadiazine (Silver Sulfadiazine 1 % Cream 20 Gm Tube) 1 appl TOPICAL DAILY [facility] Last Admin: 01/04/23 10:22 Dose: Not Given Documented By: ARASH Non-Admin Reason: waiting for med Sodium Chloride (Sodium Chloride Tab 1 Gm Tablet) 1 gm PO TID [facility] Last Admin: 01/04/23 15:47 Dose: 1 gm Documented By: ARASH Sodium Chloride (0.9 % Sodium Chloride Flush 3 Ml Syringe) 3 ml IVFLUSH QSHIFT [facility] Last Admin: 01/04/23 15:47 Dose: 3 ml Documented By: ARASH Thiamine HCl (Thiamine Hcl 100 Mg Tablet) 100 mg PO DAILY [facility] Last Admin: 01/04/23 10:21 Dose: 100 mg Documented By: ARASH Labs 01/03/23 19:18 01/03/23 19:18 Labs: Laboratory Results - last 24 hr 01/03/23 01/03/23 01/03/23 19:18 19:18 19:18 MCV 79.5 L MCH 24.4 L MCHC 30.7 L RDW 18.3 H Plt Count 349 MPV 8.2 L Immature Gran % (Auto) 0.4 Neut % (Auto) 75.8 H Lymph % (Auto) 13.4 L [place] % (Auto) 9.4 Eos % (Auto) 0.4 Baso % (Auto) 0.6 Lymph # (Auto) 1.1 L [place] # (Auto) 0.8 Eos # (Auto) 0.0 Baso # (Auto) 0.1 Abs Immat Gran (auto) 0.03 Absolute Neuts (auto) 6.2 Absolute Nucleated RBC 0.000 Nucleated RBC % (auto) 0.0 PT 14.2 H INR 1.2 H Anion Gap 16 Estim Creat Clear Calc 90.6 Estimated GFR > 60 Random Glucose 116 H Lactic Acid Lactic Acid F/U @ 2Hr Lactic Acid F/U @ 4Hr Calcium 8.0 L Magnesium 1.3 L* Total Bilirubin 0.6 Direct Bilirubin 0.3 AST 25 ALT < 5 Alkaline Phosphatase 107 Troponin I High Sens B-Natriuretic Peptide Total Protein 6.2 L Albumin 3.0 L TSH 12.34 H Free T4 1.06 01/03/23 01/03/23 01/03/23 19:18 19:18 19:18 MCV MCH MCHC RDW Plt Count MPV Immature Gran % (Auto) Neut % (Auto) Lymph % (Auto) [place] % (Auto) Eos % (Auto) Baso % (Auto) Lymph # (Auto) [place] # (Auto) Eos # (Auto) Baso # (Auto) Abs Immat Gran (auto) Absolute Neuts (auto) Absolute Nucleated RBC Nucleated RBC % (auto) PT INR Anion Gap Estim Creat Clear Calc Estimated GFR Random Glucose Lactic Acid 2.7 H* Lactic Acid F/U @ 2Hr Lactic Acid F/U @ 4Hr Calcium Magnesium Total Bilirubin Direct Bilirubin AST ALT Alkaline Phosphatase Troponin I High Sens 14.6 B-Natriuretic Peptide 303 H Total Protein Albumin TSH Free T4 01/03/23 01/04/23 01/04/23 22:32 00:55 05:40 MCV MCH MCHC RDW Plt Count MPV Immature Gran % (Auto) Neut % (Auto) Lymph % (Auto) [place] % (Auto) Eos % (Auto) Baso % (Auto) Lymph # (Auto) [place] # (Auto) Eos # (Auto) Baso # (Auto) Abs Immat Gran (auto) Absolute Neuts (auto) Absolute Nucleated RBC Nucleated RBC % (auto) PT INR Anion Gap Estim Creat Clear Calc Estimated GFR Random Glucose Lactic Acid Lactic Acid F/U @ 2Hr 2.1 H* Lactic Acid F/U @ 4Hr 2.2 H* Calcium Magnesium 1.6 Total Bilirubin Direct Bilirubin AST ALT Alkaline Phosphatase Troponin I High Sens B-Natriuretic Peptide Total Protein Albumin TSH Free T4 Assessment and Plan (1) Atrial fibrillation with RVR: Status: Acute Plan 62-year-old male with past medical history of AFib, presents the hospital in AFib with RVR. AFib with RVR- secondary to missed medications, denies noncompliance hr seems to imrpoved with Cardizem quin rodriguez amiodarone, Eliquis and metoprolol cardiology eval CHF with reduced ejection fraction - not in exacerbation - continue home furosemide chronic lower extremity burn wounds - appear clean, no acute infection - continue silver sulfadiazine seen by surgery -outpatient follow up with wound care. pressure ulcers - clean - wound care hypomagnesemia - repleted,still boderline - follow Mag levelseems better ,add po magnesium. GERD - continue omeprazole elevated tsh: normal free t4. may need outpatient tsh repeat DVT prophylaxis: Eliquis inpatient need : afib with rvr ,hypomagnesemia : need electroltic /telemtry monitering Time Spent With Patient Time: Total time managing care of this patient today ____ minutes. Quality Stroke Does the patient have a stroke diagnosis?: No VTE Prior VTE?: No VTE Risk Level:: Medical - moderate - high VTE Device Contraindication: Treatment Not Indicated VTE Drug Contraindication: N/A - Med Ordered
[2023-01-04] MEDS: Magnesium Oxide 400 MG TABLET 800 MG PO (18:40)
[2023-01-04] MEDS: Atorvastatin Calcium 40 MG TABLET PO (21:39)
[2023-01-04] MEDS: traZODone HCL 50 MG TABLET PO (21:40)
[2023-01-04] MEDS: Acetaminophen 325 MG TABLET 650 MG PO (21:45)
[2023-01-05] VITALS (7 sets, daily range): BP systolic 114–147; BP diastolic 67–93; PULSE 88–117; RESP 14–16; TEMP 36.7–37.3; O2SAT 82–100; BMI 21.9
[2023-01-05] MEDS: Omeprazole 40 MG CAPSULE.DR PO (05:29)
[2023-01-05] MEDS: Sodium Chloride Tab 1 GM TABLET PO ×3 (08:20→20:40)
[2023-01-05] MEDS: Apixaban 5 MG TABLET PO ×2 (08:20→20:40)
[2023-01-05] MEDS: Amiodarone HCL 200 MG TABLET PO (08:21)
[2023-01-05] MEDS: Thiamine HCL 100 MG TABLET PO (08:21)
[2023-01-05] MEDS: Furosemide 20 MG TABLET PO (08:21)
[2023-01-05] MEDS: Magnesium Oxide 400 MG TABLET PO ×2 (08:21→16:31)
[2023-01-05] MEDS: Metoprolol Tartrate 100 MG TABLET PO ×2 (08:21→20:40)
[2023-01-05] MEDS: Gabapentin 300 MG CAPSULE PO ×3 (08:21→20:40)
[2023-01-05] MEDS: Folic Acid 1 MG TABLET PO (08:21)
[2023-01-05] MEDS: Acetaminophen 325 MG TABLET 650 MG PO ×2 (08:25→15:22)
[2023-01-05] MEDS: 0.9 % Sodium Chloride Flush 3 ML SYRINGE IVFLUSH ×2 (09:07→15:24)
[2023-01-05] MEDS: Digoxin 0.5 MG/2 ML AMPUL 0.25 MG IVPUSH ×3 (09:49→20:43)
--- NOTE | 2023-01-05 09:54 | P.PNCA_ITS ---
Subjective Subjective Date of Service: 01/05/23 Interval history: He states that he feels okay. No specific cardiac complaints. Heart rate is still on the higher side on telemetry. Review of Systems Review of Systems Yes all other systems are reviewed and are negative Constitutional: Reports as per HPI and Reports no additional constitutional complaints Eyes: Reports as per HPI and Denies no additional eye complaints Denies system reviewed and no additional complaints, except as documented and Reports as per HPI Cardiovascular: Reports as per HPI, Reports no additional cardiovascular complaints, Denies acrocyanosis, Denies cool extremities, Denies chest pain, Denies leg edema, Denies lightheadedness, Denies palpitations and Denies dyspnea Respiratory: Reports as per HPI, Denies no additional respiratory complaints and Denies dyspnea Gastrointestinal: Reports as per HPI and Denies no additional gastrointestinal complaints Genitourinary: Reports no additional male genitourinary complaints and Reports as per HPI Musculoskeletal: Reports no additional musculoskeletal complaints and Reports as per HPI Skin/Breast: Reports system reviewed and no additional complaints, except as docu Reports system reviewed and no additional complaints, except as documented and Reports as per HPI Psychiatric: Reports no additional psychiatric complaints and Reports as per HPI Endocrine: Reports no additional endocrine complaints, Reports as per HPI and Denies palpitations Hematologic/Lymphatic: Reports no additional hematologic/lymphatic complaints and Reports as per HPI Allergic/Immunologic: Reports no additional allergic/immunologic complaints and Reports as per HPI Physical Exam Vital Signs: Last Vital Signs Temp 99.2 F 01/05/23 07:55 Pulse 116 H 01/05/23 07:55 Resp 16 01/05/23 07:55 BP 125/79 01/05/23 07:55 Pulse Ox 98 01/05/23 09:34 O2 Del Method Room Air 01/05/23 09:34 BMI result Body Mass Index 21.9 Const General: comfortable and no acute distress Orientation/consciousness: patient oriented x3 HEENT Other: Unremarkable Head: Yes normal to inspection Neck Neck: Yes normal visual inspection Chest Chest palpation & inspection: normal inspection of the chest Resp Auscultation: rhonchi and diminished lung sounds Cardio Palpation: normal PMI Heart sounds: S1 normal heart sound present, S2 normal heart sound present, no gallops, no murmurs and no rubs GI Palpation (GI): Soft to palpation Back/Spine/Pelvis Other: unremarkable Skin General skin exam: no rashes or lesions noted Neuro General: patient oriented x3 Extrem Other: both legs with dressing Psych Mental Status: mental status grossly normal Objective Labs and Meds 01/03/23 19:18 01/03/23 19:18 Progress Note: A&P Assessment and plan (1) Atrial fibrillation with RVR: Status: Acute Assessment and Plan: He is back on his usual home medications including metoprolol and amiodarone. However, noncompliance and per patient, he missed only 1 day of dosing but not sure how much to rely on this. He is now back on the same medications and heart rates are just about 100/Min. We can add digoxin as well to this regimen see how he does. Overall, he does have difficult to control rates. As the last option, may need to consider AV node ablation. However, patient does not come to the clinic regularly and hence difficult to follow. TSH seems slightly elevated but free T4 is okay. Needs to be followed if he can make it to the clinic. (2) Coronary artery disease: Status: Acute Assessment and Plan: Per the last cardiac consultation, it seems that he does have a diagnosis of 3 vessel CAD but not considered to be a good candidate for surgery due to poor compliance and cardiomyopathy in comorbidities. He does not have clear-cut symptoms or signs like angina. On statins that can be continued. Also on beta- blockers as above. (3) Cardiomyopathy: Status: Acute Assessment and Plan: Per the last echocardiogram from 2021, LVEF 20-25%. Wall motion abnormalities noted. No clinical symptoms or signs of heart failure at this time. With regard to medications, ideally should be on a good guideline based regimen but difficult to do this as he does not come for any appointments. Cardiac BNP is 303 which is much better than the previous values. Plan Plan discussed with Dr. Watts in detail. Time Spent With Patient Time: Total time managing care of this patient today 50 minutes. This includes time spent in review of chart, laboratory data, imaging studies, review of telemetry, counseling patient, discussion with hospitalist, documentation, coordination of care. Progress Note: Quality Stroke Does the patient have a stroke diagnosis?: No Procedures Date of Service Date of Service: 01/05/23
[2023-01-05] MEDS: Silver Sulfadiazine 1 % Cream 20 GM TUBE 1 APPL TOPICAL (10:39)
--- OUTSIDE RECORDS SUMMARY | 2023-01-05 13:24 | XMS_ITS | Continuity of Care Document ---
Author Name Unknown Organization [facility] Address [address] [place] [id number]- Care Team Providers Care Commissioning Specialist Name Role Phone Roxy ANDRADE, Antonino Gannon Primary Care Physician Encounter [facility] AC[facility] R [id number] Date(s): 08/09/22 - 11/30/22 [facility] [address] [place] [id number]- Attending Physician: Adam Claudio MD Admitting Physician: Adam Claudio MD Referring Physician: Antonino Ramsey NP Allergies, Adverse Reactions, Alerts Substance Reaction Severity Status bee pollen Active Bee Stings Active Immunizations Given and Recorded Vaccine Date Status Refusal Reason influenza virus vaccine, inactivated 07/02/22 Give n influenza virus vaccine, inactivated 1 07/26/10 Gi vanita tetanus/diphtheria/pertussis, acel(Tdap) 03/22/22 Recorded Pneumococcal Vaccine (oldterm) 2 07/26/10 Given tetanus-diphtheria toxoids (Td) 09/18/07 Given 1Admin Note: VIS GIVEN 2Admin Note: VIS GIVEN Medications aspirin 81 mg oral delayed release tablet 81 mg, By Mouth, Daily, Refills 0, Maintenance, 07/15/22 12:02:00 EDT, Partial fill upon patient request if the prescription is for a schedule II opioid drug. Start Date: 07/15/22 Status: Ordered atorvastatin 40 mg oral tablet 1 tablet = 40 mg, By Mouth, Daily, # 90 tablet, 0 Refills, Maintenance, 06/04/22 12:32:00 EDT, Tablet, Partial fill upon patient request if the prescription is for a schedule II opioid drug. Start Date: 06/04/22 Stop Date: 07/04/22 Status: Ordered carvedilol 25 mg oral tablet 25 mg, 1, tablet, By Mouth, 2 times a day, Refills 0, Maintenance, 07/15/22 12:02:00 EDT, Partial fill upon patient request if the prescription is for a schedule II opioid drug. Start Date: 07/15/22 Status: Ordered digoxin 0.125 mg oral tablet 125 mcg, 1, tablet, By Mouth, Daily, # 30 tablet, Refills 0, Maintenance, 12/21/21 8:09:00 EDT, Partial fill upon patient request if the prescription is for a schedule II opioid drug. Start Date: 12/21/21 Status: Ordered Eliquis 5 mg oral tablet 1 tablet = 5 mg, By Mouth, 2 times a day, # 60 tablet, 5 Refills, Maintenance, 12/21/21 8:08:00 EDT, Tablet, Partial fill upon patient request if the prescription is for a schedule II opioid drug. Start Date: 12/21/21 Status: Ordered Entresto 49 mg-51 mg oral tablet 1 tablet, By Mouth, 2 times a day, # 60 tablet, 0 Refills, Maintenance, 06/04/22 13:46:00 EDT, Tablet, Partial fill upon patient request if the prescription is for a schedule II opioid drug. Start Date: 06/04/22 Status: Ordered folic acid 1 mg oral tablet 1 mg, 1, tablet, By Mouth, Daily, # 90 tablet, Refills 0, Maintenance, 12/21/21 8:09:00 EDT, Partial fill upon patient request if the prescription is for a schedule II opioid drug. Start Date: 12/21/21 Status: Ordered furosemide 20 mg oral tablet 20 mg, 1, tablet, By Mouth, Daily, # 90 tablet, Refills 0, Maintenance, 12/21/21 8:09:00 EDT, Partial fill upon patient request if the prescription is for a schedule II opioid drug. Start Date: 12/21/21 Status: Ordered magnesium oxide 400 mg oral tablet TAKE 1 TABLET BY MOUTH DAILY Start Date: 07/15/22 Status: Ordered Multivit Therapeutic/Minerals Tablet 1 tablet, By Mouth, Daily, 0 Refills, Maintenance, 07/15/22 12:03:00 EDT, Tablet, Partial fill uponpatient request if the prescription is for a schedule II opioid drug. Start Date: 07/15/22 Status: Ordered omeprazole 40 mg oral enteric coated capsule 1 capsule = 40 mg, By Mouth, Daily, # 90 capsule, 0 Refills, Maintenance, 12/21/21 8:09:00 EDT, EC Capsule, Partial fill upon patient request if the prescription is for a schedule II opioid drug. Start Date: 12/21/21 Status: Ordered Pyridoxine Tablet 50 mg, By Mouth, Daily, Refills 0, Maintenance, 07/15/22 12:17:00 EDT, Partial fill upon patient request if the prescription is for a schedule II opioid drug. Start Date: 07/15/22 Status: Ordered Santyl Topical Oint 1 applicator, Topically, Daily, 0 Refills, Maintenance, Ointment Start Date: 07/15/22 Status: Ordered thiamine 100 mg oral tablet 100 mg, 1, tablet, By Mouth, 2 times a day, Refills 0, Maintenance, 07/15/22 12:03:00 EDT, Partial fill upon patient request if the prescription is for a schedule II opioid drug. Start Date: 07/15/22 Status: Ordered traMADol 50 mg oral tablet TAKE 1 TABLET BY MOUTH THREE TIMES DAILY NEEDED FOR PAIN Start Date: 07/15/22 Status: Ordered traZODone 50 mg oral tablet 50 mg, 1, tablet, By Mouth, Daily at bedtime, TAKE 1 TABLET BY MOUTH AT BEDTIME NEEDED FOR SLEEP Start Date: 12/21/21 Status: Ordered Vashe Topical Solution 1 applicator, Topically, Daily, 0 Refills, Maintenance, Solution Start Date: 07/15/22 Status: Ordered Social History Social History Type Response Tobacco Use: cigars daily. Sex Patient Care team information Care Team Personnel Name: Libra Banks Position: S RN Member Role: Primary Care Nurse Name: Hollie Laird RN Position: S RN Member Role: Primary Care Nurse Name: Antonino Ramsey NP Position: Reference Physician Member Role: PCP Address: Address: [address] [place] [id number] Name: Zakia Manuel RN Position: S RN Member Role: Primary Care Nurse Name: Lucrecia Nettles RN Position: S RN Member Role: Primary Care Nurse Name: Makayla Staley RN Position: S RN Member Role: Primary Care Nurse Name: Valerie Tyler RN Position: S RN Member Role: Primary Care Nurse Name: Mariela Baker RN Position: S RN Member Role: Primary Care Nurse Name: Zaida West RN Position: S RN Member Role: Primary Care Nurse Care Team Related Persons Name: DILLON PAREKH Address: home [address] [place] [address] Name: DILLON YOUNG Address: home [address] [place] [address]
--- OUTSIDE RECORDS SUMMARY | 2023-01-05 13:24 | XMS_ITS | Continuity of Care Document ---
Author Name Unknown Organization [facility] Address [address] [place] [id number]- Care Team Providers Care Medical Laboratory Manager Name Role Phone Roxy ANDRADE, Antonino Gannon Primary Care Physician Encounter [facility] Date(s): 10/31/22 - 11/30/22 [facility] [address] [place] [id number]- Attending Physician: Nitish Desai Admitting Physician: AdmNitish randolph Referring Physician: AdmtrNitish Allergies, Adverse Reactions, Alerts Substance Reaction Severity Status bee pollen Active Bee Stings Active Immunizations Given and Recorded Vaccine Date Status Refusal Reason influenza virus vaccine, inactivated 07/02/22 Give n influenza virus vaccine, inactivated 1 07/26/10 Gi vaniat tetanus/diphtheria/pertussis, acel(Tdap) 03/22/22 Recorded Pneumococcal Vaccine (oldterm) [...] Care Team Personnel Name: Libra Banks Position: [facility] RN Member Role: Primary Care Nurse Name: Hollie Laird RN Position: [facility] RN Member Role: Primary Care Nurse Name: Antonino Ramsey NP Position: Reference Physician Member Role: PCP Address: Address: [address] [place] [id number] Name: Zakia Manuel RN Position: S RN [...] DILLON PAREKH Address: home [address] [place] [address] Name: DILLON YOUNG Address: home [address] [place] [address]
--- NOTE | 2023-01-05 15:02 | P.PNIM_ITS ---
Subjective Subjective Date of Service: 01/05/23 Interval History: afib with rvr Review of Systems Denies any chest pain or shortness of breath, Currently also denies palpitations. Physical Exam Vital Signs: Vital Signs: Last Vital Signs Temp 98.4 F 01/05/23 11:24 Pulse 117 H 01/05/23 11:24 Resp 16 01/05/23 11:24 BP 114/67 01/05/23 11:24 Pulse Ox 100 01/05/23 11:24 O2 Del Method Room Air 01/05/23 11:24 BMI result Body Mass Index 21.9 Appearance: Alert.? Oriented X3.? not in distress.? cvs: irregular rythem, [id number] . res: clear to auscultation ,no rhonchii or wheezing abd: no rebound or guarding ,nt, bs present. ext pulses present , no cyanosis. neuro: axo3 , nonfocal. Objective Data Active Medications Acetaminophen (Acetaminophen 325 Mg Tablet) 650 mg PO Q6H PRN PRN Reason: Pain, Mild (Pain Scale 1-3) Last Admin: 01/05/23 08:25 Dose: 650 mg Documented By: MCKENNA Amiodarone HCl (Amiodarone Hcl 200 Mg Tablet) 200 mg PO DAILY [facility] Last Admin: 01/05/23 08:21 Dose: 200 mg Documented By: MCKENNA Apixaban (Apixaban 5 Mg Tablet) 5 mg PO BID [facility] Last Admin: 01/05/23 08:20 Dose: 5 mg Documented By: MCKENNA Atorvastatin Calcium (Atorvastatin Calcium 40 Mg Tablet) 40 mg PO BEDTIME [facility] Last Admin: 01/04/23 21:39 Dose: 40 mg Documented By: DELFINA Digoxin (Digoxin 0.5 Mg/2 Ml Ampul) 0.25 mg IVPUSH Q6H [facility] Stop: 01/05/23 21:16 Last Admin: 01/05/23 09:49 Dose: 0.25 mg Documented By: MCKENNA Docusate Sodium (Docusate Sodium 100 Mg Capsule) 100 mg PO DAILY PRN PRN Reason: Constipation Folic Acid (Folic Acid 1 Mg Tablet) 1 mg PO DAILY [facility] Last Admin: 01/05/23 08:21 Dose: 1 mg Documented By: MCKENNA Furosemide (Furosemide 20 Mg Tablet) 20 mg PO DAILY [facility]; Protocol Last Admin: 01/05/23 08:21 Dose: 20 mg Documented By: MCKENNA Gabapentin (Gabapentin 300 Mg Capsule) 300 mg PO TID [facility] Last Admin: 01/05/23 08:21 Dose: 300 mg Documented By: MCKENNA Magnesium Oxide (Magnesium Oxide 400 Mg Tablet) 400 mg PO BIDPC [facility] Last Admin: 01/05/23 08:21 Dose: 400 mg Documented By: MCKENNA Metoprolol Tartrate (Metoprolol Tartrate 100 Mg Tablet) 100 mg PO BID [facility]; Protocol Last Admin: 01/05/23 08:21 Dose: 100 mg Documented By: MCKENNA Omeprazole (Omeprazole 40 Mg Capsule.Dr) 40 mg PO DAILY@0630 [facility] Last Admin: 01/05/23 05:29 Dose: 40 mg Documented By: DELFINA Ondansetron HCl (Ondansetron Hcl 4 Mg/2 Ml Vial) 4 mg IVPUSH Q8H PRN PRN Reason: Nausea and Vomiting Silver Sulfadiazine (Silver Sulfadiazine 1 % Cream 20 Gm Tube) 1 appl TOPICAL DAILY [facility] Last Admin: 01/05/23 10:39 Dose: 1 appl Documented By: MCKENNA Sodium Chloride (Sodium Chloride Tab 1 Gm Tablet) 1 gm PO TID [facility] Last Admin: 01/05/23 08:20 Dose: 1 gm Documented By: MCKENNA Sodium Chloride (0.9 % Sodium Chloride Flush 3 Ml Syringe) 3 ml IVFLUSH QSHIFT [facility] Last Admin: 01/05/23 09:07 Dose: 3 ml Documented By: MCKENNA Thiamine HCl (Thiamine Hcl 100 Mg Tablet) 100 mg PO DAILY [facility] Last Admin: 01/05/23 08:21 Dose: 100 mg Documented By: MCKENNA Labs 01/03/23 19:18 01/03/23 19:18 Microbiology Microbiology Results: Microbiology 01/03/23 19:21 Blood Culture - Preliminary Blood - Venous No growth after 24 hours. 01/03/23 19:21 Blood Culture - Preliminary Blood - Venous No growth after 24 hours. Assessment and Plan (1) Atrial fibrillation with RVR: Status: Acute Plan 62-year-old male with past medical history of AFib, presents the hospital in AFib with RVR. AFib with RVR- secondary to missed medications, denies noncompliance hr seems to imrpoved with Cardizem drip but still elevated off cardizem added digoxin iv ,continue amiodarone, Eliquis and metoprolol cardiology eval noted. CHF with reduced ejection fraction - not in exacerbation - continue home furosemide chronic lower extremity burn wounds - appear clean, no acute infection - continue silver sulfadiazine seen by surgery -outpatient follow up with wound care. ch.pressure ulcers - clean - wound care consult hypomagnesemia - repleted,still boderline - follow Mag levelseems better ,add po magnesium. GERD - continue omeprazole elevated tsh: normal free t4. may need outpatient tsh repeat DVT prophylaxis: Eliquis inpatient need : afib with rvr ,hypomagnesemia : need iv digoxin,electroltic /telemtry monitering Time Spent With Patient Time: Total time managing care of this patient today ____ minutes. Quality Stroke Does the patient have a stroke diagnosis?: No VTE Prior VTE?: No VTE Risk Level:: Medical - moderate - high VTE Device Contraindication: Treatment Not Indicated VTE Drug Contraindication: N/A - Med Ordered
[2023-01-05] MEDS: Atorvastatin Calcium 40 MG TABLET PO (20:40)
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
[2023-01-06] VITALS (7 sets, daily range): BP systolic 132–162; BP diastolic 59–92; PULSE 77–124; RESP 16–20; TEMP 36.1–37.6; O2SAT 96–100; BMI 21.8
[2023-01-06] MEDS: traZODone HCL 50 MG TABLET PO (00:59)
[2023-01-06] MEDS: Acetaminophen 325 MG TABLET 650 MG PO ×3 (00:59→22:07)
[2023-01-06] MEDS: 0.9 % Sodium Chloride Flush 3 ML SYRINGE IVFLUSH ×4 (01:03→21:09)
[2023-01-06] MEDS: oxyCODONE HCl Immed Release 5 MG TABLET PO (05:39)
[2023-01-06] MEDS: Omeprazole 40 MG CAPSULE.DR PO (05:39)
[2023-01-06] MEDS: Furosemide 20 MG TABLET PO (08:07)
[2023-01-06] MEDS: Metoprolol Tartrate 100 MG TABLET PO ×2 (08:07→21:09)
[2023-01-06] MEDS: Amiodarone HCL 200 MG TABLET PO (08:07)
[2023-01-06] MEDS: Gabapentin 300 MG CAPSULE PO ×3 (08:07→21:09)
[2023-01-06] MEDS: Thiamine HCL 100 MG TABLET PO (08:07)
[2023-01-06] MEDS: Apixaban 5 MG TABLET PO ×2 (08:07→21:09)
[2023-01-06] MEDS: Magnesium Oxide 400 MG TABLET PO (08:07)
[2023-01-06] MEDS: Sodium Chloride Tab 1 GM TABLET PO ×3 (08:07→21:09)
[2023-01-06] MEDS: Folic Acid 1 MG TABLET PO (08:07)
[2023-01-06] MEDS: Silver Sulfadiazine 1 % Cream 20 GM TUBE 1 APPL TOPICAL (08:08)
[2023-01-06] MEDS: Digoxin 0.125 MG TABLET PO (10:18)
--- NOTE | 2023-01-06 10:38 | P.PNCA_ITS ---
Subjective Subjective Date of Service: 01/06/23 Interval history: He states that he is feeling well. No cardiac symptoms. Review of Systems Review of Systems Yes all other systems are reviewed and are negative Constitutional: Reports as per HPI and Reports no additional constitutional complaints Eyes: Reports as per HPI and Denies no additional eye complaints Denies system reviewed and no additional complaints, except as documented and Reports as per HPI Cardiovascular: Reports as per HPI, Reports no additional cardiovascular complaints, Denies acrocyanosis, Denies cool extremities, Denies chest pain, Denies leg edema, Denies lightheadedness, Denies palpitations and Denies dyspnea Respiratory: Reports as per HPI, Denies no additional respiratory complaints and Denies dyspnea Gastrointestinal: Reports as per HPI and Denies no additional gastrointestinal complaints Genitourinary: Reports no additional male genitourinary complaints and Reports as per HPI Musculoskeletal: Reports no additional musculoskeletal complaints and Reports as per HPI Skin/Breast: Reports system reviewed and no additional complaints, except as d ocu Reports system reviewed and no additional complaints, except as documented and Reports as per HPI Psychiatric: Reports no additional psychiatric complaints and Reports as per HPI Endocrine: Reports no additional endocrine complaints, Reports as per HPI and Denies palpitations Hematologic/Lymphatic: Reports no additional hematologic/lymphatic complaints and Reports as per HPI Allergic/Immunologic: Reports no additional allergic/immunologic complaints and Reports as per HPI Physical Exam Vital Signs: Last Vital Signs Temp 98 F 01/06/23 07:42 Pulse 109 H 01/06/23 07:42 Resp 20 01/06/23 07:42 BP 162/92 H 01/06/23 07:42 Pulse Ox 100 01/06/23 07:42 O2 Del Method Room Air 01/06/23 07:42 BMI result Body Mass Index 21.8 Const General: comfortable and no acute distress Orientation/consciousness: patient oriented x3 HEENT Other: Unremarkable Head: Yes normal to inspection Neck Neck: Yes normal visual inspection Chest Chest palpation & inspection: normal inspection of the chest Resp Auscultation: clear to auscultation bilaterally Cardio Palpation: normal PMI Heart sounds: S1 normal heart sound present, S2 normal heart sound present, no gallops, no murmurs and no rubs GI Palpation (GI): Soft to palpation Back/Spine/Pelvis Other: unremarkable Skin General skin exam: no rashes or lesions noted Neuro General: patient oriented x3 Extrem General: Yes normal to inspection Psych Mental Status: mental status grossly normal Objective Labs and Meds 01/03/23 19:18 01/03/23 19:18 Progress Note: A&P Assessment and plan (1) Atrial fibrillation with RVR: Status: Acute Assessment and Plan: Continue metoprolol, amiodarone. He is also disease loaded and rates overall seem better. Continue this as maintenance dose. Outpatient levels can be obtained. Continue anticoagulation. TSH seems slightly elevated but free T4 is okay. Needs to be followed if he can make it to the clinic. (2) Coronary artery disease: Status: Acute Assessment and Plan: Per the last cardiac consultation, it seems that he does have a diagnosis of 3 vessel CAD but not considered to be a good candidate for surgery due to poor compliance and cardiomyopathy in comorbidities. No anginal-type symptoms. Continue beta-blockers and statins. (3) Cardiomyopathy: Status: Acute Assessment and Plan: Per the last echocardiogram from 2021, LVEF 20-25%. Wall motion abnormalities noted. No clinical symptoms or signs of heart failure at this time. Cardiac BNP is 303 which is much better than the previous values. Med optimization if he can come to clinic. Plan Plan discussed with Dr. Watts in detail. Time Spent With Patient Time: Total time managing care of this patient today 50 minutes. This includes time spent in review of chart, laboratory data, imaging studies, review of telemetry, counseling patient, discussion with hospitalist, RN, docu mentation, coordination of care. Progress Note: Quality Stroke Does the patient have a stroke diagnosis?: No Procedures Date of Service Date of Service: 01/06/23
--- NOTE | 2023-01-06 12:14 | P.CDIM_ITS ---
PROVIDER RESPONSE TEXT: To clarify, the appropriate diagnosis supported by the clinical indicators: Persistent atrial fibrillation: episodes of continuous AF that last more than 7 days and do not self- terminate QUERY TEXT: PHYSICIAN'S DOCUMENTATION REQUEST Date of Query: 01/06/2023 09:34 AM EDT Patient Name: Brad Gordon Admit Date: 01/04/2023 Dear Bel Watts, A review of the medical record indicates additional documentation may be needed. Please review below and update the documentation accordingly. Clinical Indicators: per MD progress note 01/05/23: AFib with RVR- secondary to missed medications, denies noncompliance heart rate seems to improved with Cardizem drip but still elevated off Cardizem added Digoxin IV, continue Amiodarone, Eliquis and Metoprolol If possible, please provide further specificity regarding atrial fibrillation, such as: Paroxysmal atrial fibrillation: terminates spontaneously or with intervention within 7 days of onset Persistent atrial fibrillation: episodes of continuous AF that last more than 7 days and do not self- terminate Long lasting persistent atrial fibrillation: episodes of continuous AF that last more than 12 months Chronic or Permanent atrial fibrillation: when a decision has been made to accept the presence of AF and there is no further attempt to restore or maintain sinus rhythm Other (explain) Clinically unable to determine (explain) Thank you, Vy Vidal RN Use of terms such as suspected, likely, concern for, or probable (associated with a specific diagnosi s that is being evaluated, monitored, or treated as if it exists) are acceptable and can be coded in the inpatient se tting, when documented at the time of discharge. Please use your independent medical judgment in providing your response. THIS QUERY IS PART OF THE PERMANENT MEDICAL RECORD
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
--- NOTE | 2023-01-06 14:22 | P.PNIM_ITS ---
Subjective Subjective Date of Service: 01/06/23 Interval History: afib with rvr Review of Systems heart rates flactuates Denies any chest pain or shortness of breath, Currently also denies palpitations. Physical Exam Vital Signs: Vital Signs: Last Vital Signs Temp 97.6 F 01/06/23 12:00 Pulse 77 01/06/23 12:00 Resp 18 01/06/23 12:00 BP 155/59 H 01/06/23 12:00 Pulse Ox 100 01/06/23 12:00 O2 Del Method Room Air 01/06/23 12:00 BMI result Body Mass Index 21.8 Appearance: Alert.? Oriented X3.? not in distress.? cvs: irregular rythem, [id number] . res: clear to auscultation ,no rhonchii or wheezing abd: no rebound or guarding ,nt, bs present. ext pulses present , no cyanosis. neuro: axo3 , nonfocal. Objective Data Active Medications Acetaminophen (Acetaminophen 325 Mg Tablet) 650 mg PO Q6H PRN PRN Reason: Pain, Mild (Pain Scale 1-3) Last Admin: 01/06/23 08:10 Dose: 650 mg Documented By: MCKENNA Amiodarone HCl (Amiodarone Hcl 200 Mg Tablet) 200 mg PO DAILY [facility] Last Admin: 01/06/23 08:07 Dose: 200 mg Documented By: MCKENNA Apixaban (Apixaban 5 Mg Tablet) 5 mg PO BID [facility] Last Admin: 01/06/23 08:07 Dose: 5 mg Documented By: MCKENNA Atorvastatin Calcium (Atorvastatin Calcium 40 Mg Tablet) 40 mg PO BEDTIME [facility] Last Admin: 01/05/23 20:40 Dose: 40 mg Documented By: KAILEE Digoxin (Digoxin 0.125 Mg Tablet) 0.125 mg PO DAILY [facility] Last Admin: 01/06/23 10:18 Dose: 0.125 mg Documented By: MCKENNA Docusate Sodium (Docusate Sodium 100 Mg Capsule) 100 mg PO DAILY PRN PRN Reason: Constipation Folic Acid (Folic Acid 1 Mg Tablet) 1 mg PO DAILY [facility] Last Admin: 01/06/23 08:07 Dose: 1 mg Documented By: MCKENNA Furosemide (Furosemide 20 Mg Tablet) 20 mg PO DAILY [facility]; Protocol Last Admin: 01/06/23 08:07 Dose: 20 mg Documented By: MCKENNA Gabapentin (Gabapentin 300 Mg Capsule) 300 mg PO TID [facility] Last Admin: 01/06/23 14:10 Dose: 300 mg Documented By: MCKENNA Magnesium Oxide (Magnesium Oxide 400 Mg Tablet) 400 mg PO BIDPC [facility] Last Admin: 01/06/23 08:07 Dose: 400 mg Documented By: MCKENNA Metoprolol Tartrate (Metoprolol Tartrate 100 Mg Tablet) 100 mg PO BID [facility]; Protocol Last Admin: 01/06/23 08:07 Dose: 100 mg Documented By: MCKENNA Omeprazole (Omeprazole 40 Mg Capsule.Dr) 40 mg PO DAILY@0630 [facility] Last Admin: 01/06/23 05:39 Dose: 40 mg Documented By: KIRSTIN Ondansetron HCl (Ondansetron Hcl 4 Mg/2 Ml Vial) 4 mg IVPUSH Q8H PRN PRN Reason: Nausea and Vomiting Silver Sulfadiazine (Silver Sulfadiazine 1 % Cream 20 Gm Tube) 1 appl TOPICAL DAILY [facility] Last Admin: 01/06/23 08:08 Dose: 1 appl Documented By: MCKENNA Sodium Chloride (Sodium Chloride Tab 1 Gm Tablet) 1 gm PO TID [facility] Last Admin: 01/06/23 14:10 Dose: 1 gm Documented By: MCKENNA Sodium Chloride (0.9 % Sodium Chloride Flush 3 Ml Syringe) 3 ml IVFLUSH QSHIFT [facility] Last Admin: 01/06/23 14:10 Dose: 3 ml Documented By: MCKENNA Thiamine HCl (Thiamine Hcl 100 Mg Tablet) 100 mg PO DAILY [facility] Last Admin: 01/06/23 08:07 Dose: 100 mg Documented By: MCKENNA Labs 01/03/23 19:18 01/03/23 19:18 Microbiology Microbiology Results: Microbiology 01/03/23 19:21 Blood Culture - Preliminary Blood - Venous No growth after 48 hours. 01/03/23 19:21 Blood Culture - Preliminary Blood - Venous No growth after 48 hours. Assessment and Plan (1) Atrial fibrillation with RVR: Status: Acute Plan 62-year-old male with past medical history of AFib, presents the hospital in AFib with RVR. AFib with RVR(ch afib)- secondary to missed medications, denies noncompliance hr seems to imrpoved with Cardizem drip but still elevated off cardizem added digoxin iv ,continue amiodarone, Eliquis and metoprolol cardiology eval noted. CHF with reduced ejection fraction - not in exacerbation - continue home furosemide chronic lower extremity burn wounds - appear clean, no acute infection - continue silver sulfadiazine seen by surgery -outpatient follow up with wound care wound care saw the patient-recomended vascular eval for if need for surgery. ch.pressure ulcers - clean - wound care consult hypomagnesemia - repleted,still boderline - follow Mag levelseems better ,add po magnesium. GERD - continue omeprazole elevated tsh: normal free t4. may need outpatient tsh repeat DVT prophylaxis: Eliquis inpatient need : leg ulcers - need vascular eval for ? need vascular workup/possible vascular intervention. Time Spent With Patient Time: Total time managing care of this patient today ____ minutes. Quality Stroke Does the patient have a stroke diagnosis?: No VTE Prior VTE?: No VTE Risk Level:: Medical - moderate - high VTE Device Contraindication: Treatment Not Indicated VTE Drug Contraindication: N/A - Med Ordered
--- NOTE | 2023-01-06 14:54 | MHC.CM.PN ---
EMR reviewed and per MD rounds and general surgeon consult, pt not medically cleared for D/C at this time. CT angiogram of legs ordered to better assess the pts arterial status. Pending findings, if surgery recommended, and if pt elects to proceed, surgery may occur early next week. CM will continue to monitor.
[2023-01-06] MEDS: iohexoL 350 MG/ML 100 ML INFUS..BTL IV (18:52)
[2023-01-06] MEDS: Atorvastatin Calcium 40 MG TABLET PO (21:09)
[2023-01-06] MEDS: traZODone HCL 25 MG HALFTAB PO (22:07)
[2023-01-07] MEDS: Metoprolol Tartrate 5 MG/5 ML VIAL IVPUSH (00:24)
--- NOTE | 2023-01-07 02:38 | PC.NURSE ---
Assumed care at 1900 - patients heart rate was fluctuating from 110-150s in afib at this time. patient alert and oriented x4, asymptomatic with no complaints of pain. MD notified, ordered metoprolol 5mg IV push . administered at 00:24. at 02:40 pts heart rate is 90-100 in afib. pt is calmly asleep. will continue with plan of care.
[2023-01-07] MEDS: oxyCODONE HCl Immed Release 5 MG TABLET PO ×3 (03:53→20:00)
[2023-01-07] MEDS: Omeprazole 40 MG CAPSULE.DR PO (03:53)
[2023-01-07 04:00] VITALS: BP 111/66; PULSE 87; RESP 20; TEMP 37.1; O2SAT 98
[2023-01-07 06:00] VITALS: BMI 21.7
[2023-01-07 08:00] VITALS: BP 134/91; PULSE 85; RESP 20; TEMP 37.1; O2SAT 99
[2023-01-07] MEDS: Acetaminophen 325 MG TABLET 650 MG PO ×2 (09:02→16:25)
[2023-01-07] MEDS: Apixaban 5 MG TABLET PO ×2 (09:02→20:00)
[2023-01-07] MEDS: 0.9 % Sodium Chloride Flush 3 ML SYRINGE IVFLUSH ×3 (09:02→20:01)
[2023-01-07] MEDS: Metoprolol Tartrate 100 MG TABLET PO ×2 (09:02→20:00)
[2023-01-07] MEDS: Sodium Chloride Tab 1 GM TABLET PO ×3 (09:02→20:00)
[2023-01-07] MEDS: Thiamine HCL 100 MG TABLET PO (09:03)
[2023-01-07] MEDS: Magnesium Oxide 400 MG TABLET PO ×2 (09:03→16:25)
[2023-01-07] MEDS: Furosemide 20 MG TABLET PO (09:03)
[2023-01-07] MEDS: Digoxin 0.125 MG TABLET PO (09:03)
[2023-01-07] MEDS: Gabapentin 300 MG CAPSULE PO ×3 (09:03→20:00)
[2023-01-07] MEDS: Folic Acid 1 MG TABLET PO (09:03)
[2023-01-07] MEDS: Amiodarone HCL 200 MG TABLET PO (09:03)
[2023-01-07] MEDS: Silver Sulfadiazine 1 % Cream 20 GM TUBE 1 APPL TOPICAL (09:04)
[2023-01-07 11:20] VITALS: BP 114/66; PULSE 83; RESP 20; TEMP 36.7; O2SAT 96
--- NOTE | 2023-01-07 13:37 | MHC.CM.PN ---
This RNCM noticed that [facility] referred to has not yet accepted patient back for return to service. Unable to set up transportation home until appropriate services are back in place. Messaged previous [facility] questioning if they are accepting for return to service (Jean [facility]). Pending response. CM to follow.
--- NOTE | 2023-01-07 14:13 | P.PNIM_ITS ---
Subjective Subjective Date of Service: 01/07/23 Interval History: afib with rvr Review of Systems heart rates improving Denies any chest pain or shortness of breath, Currently also denies palpitations. Physical Exam Vital Signs: Vital Signs: Last Vital Signs Temp 98.0 F 01/07/23 11:20 Pulse 83 01/07/23 11:20 Resp 20 01/07/23 11:20 BP 114/66 01/07/23 11:20 Pulse Ox 96 01/07/23 11:20 O2 Del Method Room Air 01/07/23 11:20 BMI result Body Mass Index 21.7 Appearance: Alert.? Oriented X3.? not in distress.? cvs: irregular rythem, [id number] . res: clear to auscultation ,no rhonchii or wheezing abd: no rebound or guarding ,nt, bs present. ext pulses present , no cyanosis. neuro: axo3 , nonfocal. Objective Data Active Medications Acetaminophen (Acetaminophen 325 Mg Tablet) 650 mg PO Q6H PRN PRN Reason: Pain, Mild (Pain Scale 1-3) Last Admin: 01/07/23 09:02 Dose: 650 mg Documented By: FLAVIO Amiodarone HCl (Amiodarone Hcl 200 Mg Tablet) 200 mg PO DAILY [facility] Last Admin: 01/07/23 09:03 Dose: 200 mg Documented By: FLAVIO Apixaban (Apixaban 5 Mg Tablet) 5 mg PO BID [facility] Last Admin: 01/07/23 09:02 Dose: 5 mg Documented By: FLAVIO Atorvastatin Calcium (Atorvastatin Calcium 40 Mg Tablet) 40 mg PO BEDTIME [facility] Last Admin: 01/06/23 21:09 Dose: 40 mg Documented By: JESSICA Digoxin (Digoxin 0.125 Mg Tablet) 0.125 mg PO DAILY [facility] Last Admin: 01/07/23 09:03 Dose: 0.125 mg Documented By: FLAVIO Docusate Sodium (Docusate Sodium 100 Mg Capsule) 100 mg PO DAILY PRN PRN Reason: Constipation Folic Acid (Folic Acid 1 Mg Tablet) 1 mg PO DAILY [facility] Last Admin: 01/07/23 09:03 Dose: 1 mg Documented By: FLAVIO Furosemide (Furosemide 20 Mg Tablet) 20 mg PO DAILY [facility]; Protocol Last Admin: 01/07/23 09:03 Dose: 20 mg Documented By: FLAVIO Gabapentin (Gabapentin 300 Mg Capsule) 300 mg PO TID [facility] Last Admin: 01/07/23 09:03 Dose: 300 mg Documented By: FLAVIO Magnesium Oxide (Magnesium Oxide 400 Mg Tablet) 400 mg PO BIDPC [facility] Last Admin: 01/07/23 09:03 Dose: 400 mg Documented By: FLAVIO Metoprolol Tartrate (Metoprolol Tartrate 100 Mg Tablet) 100 mg PO BID [facility]; Protocol Last Admin: 01/07/23 09:02 Dose: 100 mg Documented By: FLAVIO Omeprazole (Omeprazole 40 Mg Capsule.Dr) 40 mg PO DAILY@0630 [facility] Last Admin: 01/07/23 03:53 Dose: 40 mg Documented By: JESSICA Ondansetron HCl (Ondansetron Hcl 4 Mg/2 Ml Vial) 4 mg IVPUSH Q8H PRN PRN Reason: Nausea and Vomiting Silver Sulfadiazine (Silver Sulfadiazine 1 % Cream 20 Gm Tube) 1 appl TOPICAL DAILY [facility] Last Admin: 01/07/23 09:04 Dose: 1 appl Documented By: FLAVIO Sodium Chloride (Sodium Chloride Tab 1 Gm Tablet) 1 gm PO TID [facility] Last Admin: 01/07/23 09:02 Dose: 1 gm Documented By: FLAVIO Sodium Chloride (0.9 % Sodium Chloride Flush 3 Ml Syringe) 3 ml IVFLUSH QSHIFT [facility] Last Admin: 01/07/23 09:02 Dose: 3 ml Documented By: FLAVIO Thiamine HCl (Thiamine Hcl 100 Mg Tablet) 100 mg PO DAILY [facility] Last Admin: 01/07/23 09:03 Dose: 100 mg Documented By: FLAVIO Labs 01/03/23 19:18 01/03/23 19:18 Assessment and Plan (1) Atrial fibrillation with RVR: Status: Acute Plan 62-year-old male with past medical history of AFib, presents the hospital in AFib with RVR. AFib with RVR(ch afib)- secondary to missed medications, denies noncompliance hr seems to imrpoved with Cardizem drip but still elevated off cardizem added digoxin iv ,continue amiodarone, Eliquis and metoprolol cardiology eval noted. CHF with reduced ejection fraction - not in exacerbation - continue home furosemide chronic lower extremity burn wounds - appear clean, no acute infection - continue silver sulfadiazine seen by surgery -outpatient follow up with wound care wound care saw the patient-cta resultus d/w vascular , currently patient is relu ctant for surgerical intervention ch.pressure ulcers - clean - wound care consult hypomagnesemia - repleted,still boderline - follow Mag levelseems better ,add po magnesium. GERD - continue omeprazole elevated tsh: normal free t4. may need outpatient tsh repeat DVT prophylaxis: Eliquis inpatient need : awaiting placement -safe dispo to home with vna. Time Spent With Patient Time: Total time managing care of this patient today ____ minutes. Quality Stroke Does the patient have a stroke diagnosis?: No VTE Prior VTE?: No VTE Risk Level:: Medical - moderate - high VTE Device Contraindication: Treatment Not Indicated VTE Drug Contraindication: N/A - Med Ordered
[2023-01-07 15:09] VITALS: BP 100/63; PULSE 80; RESP 20; TEMP 36.2; O2SAT 98
--- NOTE | 2023-01-07 15:58 | MHC.CM.PN ---
[facility] still not responding. Will send a fax with a request for a call back jackelyn.
--- NOTE | 2023-01-07 16:02 | MHC.CM.PN ---
Just spoke with [facility] ([phone]); they are down 9 nurses and unsure if they can accept him back. Family Sociologist is going to call her clinical credit manager to find out if they can accommodate his return to service. This nurse is to call back in a few minutes. CM to follow.
--- NOTE | 2023-01-07 16:18 | MHC.CM.PN ---
Confirmed with [facility] that Clinical Assistant Account Manager (Shahla) accepts him back on to service. [facility] states they can see him Monday. Plan is for him to stay tonight, receive wound care here at [facility] tomorrow 01/07/23 and D/C to home right after this. Then Monday01/09/23, the A nurse will visit to avoid any lapse in service. [facility] in agreement. [facility] MD and nurse both notified. Clinicals faxed to given fax number: [phone] ATTN: Shahla. CM to follow.
[2023-01-07 19:09] VITALS: BP 113/80; PULSE 76; RESP 20; TEMP 37.3; O2SAT 96
[2023-01-07] MEDS: Atorvastatin Calcium 40 MG TABLET PO (20:00)
[2023-01-07 23:07] VITALS: BP 100/72; PULSE 80; RESP 20; TEMP 36.7; O2SAT 100
[2023-01-08] MEDS: oxyCODONE HCl Immed Release 5 MG TABLET PO ×3 (01:02→20:11)
[2023-01-08] MEDS: Acetaminophen 325 MG TABLET 650 MG PO ×2 (01:02→11:14)
[2023-01-08 02:43] VITALS: BP 131/72; PULSE 69; RESP 20; TEMP 36.7; O2SAT 98
[2023-01-08] MEDS: Omeprazole 40 MG CAPSULE.DR PO (05:07)
[2023-01-08 06:00] VITALS: BMI 22.1
[2023-01-08 07:49] VITALS: BP 132/77; PULSE 95; RESP 20; TEMP 36.8; O2SAT 98
[2023-01-08] MEDS: Folic Acid 1 MG TABLET PO (08:37)
[2023-01-08] MEDS: Apixaban 5 MG TABLET PO ×2 (08:37→20:12)
[2023-01-08] MEDS: Amiodarone HCL 200 MG TABLET PO (08:37)
[2023-01-08] MEDS: Furosemide 20 MG TABLET PO (08:37)
[2023-01-08] MEDS: Sodium Chloride Tab 1 GM TABLET PO ×3 (08:37→20:11)
[2023-01-08] MEDS: 0.9 % Sodium Chloride Flush 3 ML SYRINGE IVFLUSH ×3 (08:37→20:12)
[2023-01-08] MEDS: Thiamine HCL 100 MG TABLET PO (08:37)
[2023-01-08] MEDS: Digoxin 0.125 MG TABLET PO (08:37)
[2023-01-08] MEDS: Gabapentin 300 MG CAPSULE PO ×3 (08:37→20:11)
[2023-01-08] MEDS: Magnesium Oxide 400 MG TABLET PO ×2 (08:37→15:41)
[2023-01-08] MEDS: Metoprolol Tartrate 100 MG TABLET PO ×2 (08:38→20:11)
[2023-01-08] MEDS: Silver Sulfadiazine 1 % Cream 20 GM TUBE 1 APPL TOPICAL (08:41)
[2023-01-08 11:14] VITALS: BP 119/63; PULSE 89; RESP 20; TEMP 36.9; O2SAT 97
--- NOTE | 2023-01-08 11:36 | HO.PM.IMPN ---
Subjective Subjective Date of Service: 01/08/23 Interval History: afib Review of Systems no new c/o hr seems fine Physical Exam Vital Signs: Vital Signs: Last Vital Signs Temp 98.5 F 01/08/23 11:14 Pulse 89 01/08/23 11:14 Resp 20 01/08/23 11:14 BP 119/63 01/08/23 11:14 Pulse Ox 97 01/08/23 11:14 O2 Del Method Room Air 01/08/23 11:14 BMI result Body Mass Index 22.1 Appearance: Alert.? Oriented X3.? not in distress.? cvs: irregular rythem, [id number] . res: clear to auscultation ,no rhonchii or wheezing abd: no rebound or guarding ,nt, bs present. ext pulses present , no cyanosis. neuro: axo3 , nonfocal. Objective Data Active Medications Acetaminophen (Acetaminophen 325 Mg Tablet) 650 mg PO Q6H PRN PRN Reason: Pain, Mild (Pain Scale 1-3) Last Admin: 01/08/23 11:14 Dose: 650 mg Documented By: FLAVIO Amiodarone HCl (Amiodarone Hcl 200 Mg Tablet) 200 mg PO DAILY [facility] Last Admin: 01/08/23 08:37 Dose: 200 mg Documented By: FLAVIO Apixaban (Apixaban 5 Mg Tablet) 5 mg PO BID [facility] Last Admin: 01/08/23 08:37 Dose: 5 mg Documented By: FLAVIO Atorvastatin Calcium (Atorvastatin Calcium 40 Mg Tablet) 40 mg PO BEDTIME [facility] Last Admin: 01/07/23 20:00 Dose: 40 mg Documented By: JESSICA Digoxin (Digoxin 0.125 Mg Tablet) 0.125 mg PO DAILY [facility] Last Admin: 01/08/23 08:37 Dose: 0.125 mg Documented By: FLAVIO Docusate Sodium (Docusate Sodium 100 Mg Capsule) 100 mg PO DAILY PRN PRN Reason: Constipation Folic Acid (Folic Acid 1 Mg Tablet) 1 mg PO DAILY [facility] Last Admin: 01/08/23 08:37 Dose: 1 mg Documented By: FLAVIO Furosemide (Furosemide 20 Mg Tablet) 20 mg PO DAILY [facility]; Protocol Last Admin: 01/08/23 08:37 Dose: 20 mg Documented By: FLAVIO Gabapentin (Gabapentin 300 Mg Capsule) 300 mg PO TID [facility] Last Admin: 01/08/23 08:37 Dose: 300 mg Documented By: FLAVIO Magnesium [facility]ide ([facility]ide 400 Mg Tablet) [facility] Last Admin: 01/08/23 08:37 Dose: 400 mg Documented By: FLAVIO Metoprolol Tartrate (Metoprolol Tartrate 100 Mg Tablet) 100 mg PO BID [facility]; Protocol Last Admin: 01/08/23 08:38 Dose: 100 mg Documented By: FLAVIO Omeprazole (Omeprazole 40 Mg Capsule.Dr) 40 mg PO DAILY@0630 [facility] Last Admin: 01/08/23 05:07 Dose: 40 mg Documented By: JESSICA Ondansetron HCl (Ondansetron Hcl 4 Mg/2 Ml Vial) 4 mg IVPUSH Q8H PRN PRN Reason: Nausea and Vomiting Silver Sulfadiazine (Silver Sulfadiazine 1 % Cream 20 Gm Tube) 1 appl TOPICAL DAILY [facility] Last Admin: 01/08/23 08:41 Dose: 1 appl Documented By: FLAVIO Sodium Chloride (Sodium Chloride Tab 1 Gm Tablet) 1 gm PO TID [facility] Last Admin: 01/08/23 08:37 Dose: 1 gm Documented By: FLAVIO Sodium Chloride (0.9 % Sodium Chloride Flush 3 Ml Syringe) 3 ml IVFLUSH QSHIFT [facility] Last Admin: 01/08/23 08:37 Dose: 3 ml Documented By: FLAVIO Thiamine HCl (Thiamine Hcl 100 Mg Tablet) 100 mg PO DAILY [facility] Last Admin: 01/08/23 08:37 Dose: 100 mg Documented By: FLAVIO Labs 01/03/23 19:18 01/03/23 19:18 Assessment and Plan (1) Elevated TSH: Status: Acute (2) Atrial fibrillation with RVR: Status: Acute Plan 62-year-old male with past medical history of AFib, presents the hospital in AFib with RVR. ?AFib with RVR(ch afib)- secondary to missed medications, denies noncompliance hr seems to imrpoved with Cardizem drip but still elevated off cardizem added digoxin iv ,continue? amiodarone, Eliquis and metoprolol cardiology eval noted. CHF with reduced ejection fraction - not in exacerbation - continue home furosemide ?chronic lower extremity burn wounds - appear clean, no acute infection - continue silver sulfadiazine seen by surgery -outpatient follow up with wound care wound care saw the patient-cta resultus d/w vascular , currently patient is reluctant for surgerical intervention ch.pressure ulcers - clean - wound care consult ?hypomagnesemia - repleted,still boderline - follow Mag levelseems better ,add po magnesium. ?GERD - continue omeprazole elevated tsh: normal free t4. may need outpatient tsh repeat DVT prophylaxis: Eliquis inpatient need : awaiting placement -safe dispo to home with vna. Time Spent With Patient Time: Total time managing care of this patient today ____ minutes. Quality Stroke Does the patient have a stroke diagnosis?: No VTE Prior VTE?: No VTE Risk Level:: Medical - moderate - high VTE Device Contraindication: Treatment Not Indicated VTE Drug Contraindication: N/A - Med Ordered
--- NOTE | 2023-01-08 13:45 | P.DS_ITS ---
DS: Providers Provider Date of Service: 01/09/23 Date of admission: 01/03/23 22:08 Date of discharge: 01/09/23 Primary care physician: AL DunnP- Consults: 01/03/23 22:08 Consult to Cardiology Routine Consulting Provider: [facility] Reason for consultation: A fib w RVR Has provider been notified: Yes 01/04/23 10:02 Consult to General Surgery Routine Consulting Provider: [facility] Reason for consultation: lower ext burn wounds Has provider been notified: No 01/05/23 11:11 Consult to Wound Care Routine Consulting Provider: [facility] Reason for consultation: buttock and leg wounds Has provider been notified: No 01/06/23 10:52 Consult to Vascular Surgery Routine Consulting Provider: [facility] Reason for consultation: ? pvd Has provider been notified: No DS: Diagnosis Discharge Diagnosis (1) Elevated TSH: Status: Acute (2) Atrial fibrillation with RVR: Status: Acute DS: Summary Hospital Course Hospital Course: date of service and discharge: 01/09/2023. 62-year-old male with history of atrial fibrillation on Eliquis, ischemic cardiomyopathy, CHF with reduced ejection fraction, PAD, COPD, HTN, presents to the hospital with complaints of palpitations.? Patient reports that he ran out of his medications today and last doses were yesterday.? He tried getting a refill from his pharmacy but they did not have a refill for him.? He tried to stay home but he started having dizziness and palpitations at eventually got worse and brought him to the hospital.? Patient denies any chest pain, no shortness of breath, no headache or change in vision, no weakness numbness or tingling,.? On arrival to the ED patient vitals were found to be heart rate of 146 in AFib with RVR, blood pressure stable Labs are significant for WBC count of 8.2, hemoglobin of 10.7 which is improved from his previous admission, lactic acid of 2.7, magnesium of 1.3, BNP of 303 which is lower than his previous, TSH of 12.34 with a free thyroxine of 1.06 Patient received his home doses but continued to have tachycardia, Cardiology was consulted by ED, patient started on Cardizem drip. Hospital course: Patient admitted to the hospital with irregular rhythm: Patient has chronic AFib came with AFib with RVR started on Cardizem drip heart seems to fluctuatin g: Subsequently received digoxin -heart rate seems to be acceptable, patient is asymptomatic patient is going home with digoxin in addition to his home medications. Chronic low lower extremity burn wounds: Continue follow-up with wound care out patiently, continue current wound care. In addition patient was seen by vascular for bilateral leg ulcers and had CT angiogram was done-findings of peripheral vascular disease are discussed with vascular in detail as well as patient patient currently does not want surgical intervention(possible amputation): Defer to follow-up with Dr. Azul outpatient. patient is waiting for safe home discharge with VNA reinstatement. plan: Follow-up with vascular for further management of low chronic leg wound as well as wound care outpatient. Elevated TSH-repeat TSH outpatient in 1 week and further management outpatient. Please check digoxin level outpatient in 1 week. Cardiology may arrange their own appointment. Above management discussed with the patient in detail length she understand and in agreement with the above plan, time spent 50 minutes and 50% time spent on counseling. Time Spent with Patient Time attestation: Total time managing care of this patient today ____ minutes. Discharge coordination time: Greater than 30 minutes Quality: Safe Use of Opioids Does Pt have an Active Cancer Diagnosis on the Problem List?: No Quality: Stroke Does the patient have a stroke diagnosis?: No Physical Exam Vital Signs: Vital Signs: Last Vital Signs Temp 98.5 F 01/08/23 11:14 Pulse 89 01/08/23 11:14 Resp 20 01/08/23 11:14 BP 119/63 01/08/23 11:14 Pulse Ox 97 01/08/23 11:14 O2 Del Method Room Air 01/08/23 11:14 BMI result Body Mass Index 22.1 Appearance: Alert.? Oriented X3.? not in distress.? cvs: irregular rythem, [id number] . res: clear to auscultation ,no rhonchii or wheezing abd: no rebound or guarding ,nt, bs present. ext pulses present , no cyanosis. neuro: axo3 , nonfocal. DS: Data Data Completed and Pending Completed studies during hospitalization [Text1]: Procedures Detoxification Services for Substance Abuse Treatment (11/18/22) Insertion of Monitoring Device into Right Pulmonary Artery, Percutaneous Approach (07/24/21) Labs on day of discharge: Preliminary micro results at discharge 01/03/23 19:21 Blood Culture - Preliminary Blood - Venous No growth after 48 hours. 01/03/23 19:21 Blood Culture - Preliminary Blood - Venous No growth after 48 hours. Imaging Chest x-ray: Radiologist's impression: ITS Impressions Chest X-Ray 01/03/23 19:47 IMPRESSION: No acute pulmonary disease. Aorta w/Runoff CTA 01/06/23 18:40 IMPRESSION: 1. Heavily calcified plaque at the ostium of the right common iliac artery with underlying severe stenosis. Heavily calcified plaque in the right common femoral artery with chronic total occlusion of the right superficial femoral artery. Reconstituted flow is seen in the right popliteal artery. Evaluation of the below-knee runoff is suboptimal however there appears to be moderate to severe stenosis in the proximal anterior tibial artery. Occlusive changes seen in the right peroneal and posterior tibial arteries. Findings have progressed compared to the prior exam with worsening occlusion of the superficial femoral artery and below-knee runoff vessels 2. Heavily calcified plaque in the left common iliac artery with moderate stenosis. Heavily calcified plaque in the left common femoral artery with critical stenosis to possible occlusion. Chronic total occlusion of the left superficial femoral artery and popliteal artery. Minimal reconstituted flow in the proximal anterior tibial artery. The posterior tibial and peroneal arteries appear occluded. Findings have progressed compared to the prior exam with worsening occlusion of the popliteal artery and below-knee runoff vessels 3. 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 Moderate to severe stenosis of the left renal artery. Discharge Plan Discharge Anticipated Discharge Date/Time: 01/07/23 11:31 Patient Disposition: Home Health Service Discharge Diagnosis: afib rvr ,possible peripheral vascular disease ,also has ch leg ulcers ( has hx of roberts) Referrals: [facility] [Outside] - 1 Week Antonino Ramsey FNP- [Primary Care Provider] - 1 Week Tez Azul MD [Physician] - 1 Week (follow up outpatient) Mary Lobo MD [Physician] - 1 Week (follow up outpatient) Discharge Medications: New digoxin 125 mcg (0.125 mg) Tablet 0.125 mg PO DAILY Qty: 30 0RF Continued folic acid 1 mg tablet 1 mg PO DAILY 90 Days Qty: 90 0RF omeprazole 40 mg capsule,delayed release(DR/EC) 40 mg PO DAILY@0630 90 Days Qty: 90 0RF (DME) power scooter See Rx Instructions .Route .MEDSUPPLY Qty: 1 0RF Rx Instructions: daily use gabapentin 100 mg capsule 300 mg PO Q8H 30 Days Qty: 270 0RF thiamine mononitrate (vit B1) 100 mg Tablet 100 mg PO DAILY Qty: 30 0RF silver sulfadiazine 1 % cream 1 appl topical DAILY sodium chloride 1,000 mg tablet,soluble 1 tab PO TID amiodarone 200 mg tablet 200 mg PO DAILY 30 Days Qty: 30 0RF metoprolol tartrate 100 mg Tablet 100 mg PO BID 30 Days Qty: 60 0RF Protocol: Hold for SBP/HR < HOLD for SBP < : 90 HOLD for HR < : 60 magnesium oxide 400 mg (241.3 mg magnesium) Tablet 400 mg PO BIDPC 30 Days Qty: 60 0RF atorvastatin 40 mg tablet 40 mg PO BEDTIME furosemide 20 mg tablet 20 mg PO DAILY Eliquis 5 mg tablet 5 mg PO BID Discharge Orders: Discharge Order (Routine); Ordered 01/09/23 Ordered By: Bel Watts Diet: Advance to usual diet Activity on Discharge: As tolerated Stand Alone Forms: Patient Portal Discharge page Other Ambulatory Orders: Basic Metabolic Panel (Routine) Timeframe: 1 Week Facility: [facility] - Location: Laboratory Ordered By: Bel Watts Digoxin (Routine) Timeframe: 1 Week Facility: [facility] - Location: Laboratory Ordered By: Bel Watts Thyroid Stimulating Hormone (Routine) Timeframe: 1 Week Facility: [facility] - Location: Laboratory Ordered By: Bel Watts Care Plan Goals: Patient admitted to the hospital with irregular rhythm: Patient has chronic AFib came with AFib with RVR started on Cardizem drip heart seems to fluctuating: Subsequently received digoxin -heart rate seems to be acceptable, patient is asymptomatic patient is going home with digoxin in addition to his home medications. Chronic low lower extremity burn wounds: Continue follow-up with wound care out patiently, continue current wound care. In addition patient was seen by vascular for bilateral leg ulcers and had CT a ngiogram was done-findings of peripheral vascular disease are discussed with vascular in detail as well as patient patient currently does not want surgical intervention(possible amputation): Defer to follow-up with Dr. Azul outpatient. patient is waiting for safe home discharge with VNA reinstatement. Health Concerns: As above. Plan of Treatment: As above. Assessment: as above.
--- NOTE | 2023-01-08 13:55 | MHC.CM.PN ---
Per MD's request, CM spoke with Patient at bedside. Patient has indicated that he has a lot of pain in his legs and does want to go home but does not not feel up to returning home today. Patient stated that a Wound Care Nurse has been arranged to oversee his dressing changes and make recommendations for wound care at home with [facility]; per Patient, his dressing changes have not yet been done today. When Patient goes home, he will need a BLS Ambulance to [address] [place] [address] in [place]. NADER has relayed this information to and Nursing Inseminator/Leann. CM will follow.
[2023-01-08 15:11] VITALS: BP 156/68; PULSE 80; RESP 20; TEMP 36.9; O2SAT 100
[2023-01-08 18:57] VITALS: BP 166/75; PULSE 80; RESP 20; TEMP 36.6; O2SAT 98
[2023-01-08] MEDS: Atorvastatin Calcium 40 MG TABLET PO (20:11)
[2023-01-08 23:46] VITALS: BP 134/71; PULSE 93; RESP 15; TEMP 37.5; O2SAT 99
[2023-01-09] MEDS: Acetaminophen 325 MG TABLET 650 MG PO ×3 (01:22→14:55)
[2023-01-09] MEDS: oxyCODONE HCl Immed Release 5 MG TABLET PO ×3 (02:09→14:56)
[2023-01-09 04:00] VITALS: BP 128/69; PULSE 86; RESP 16; TEMP 36.9; O2SAT 98
[2023-01-09 06:00] VITALS: BMI 22.4
[2023-01-09 07:37] VITALS: BP 138/71; PULSE 90; RESP 20; TEMP 36.9; O2SAT 98
[2023-01-09] MEDS: Sodium Chloride Tab 1 GM TABLET PO ×2 (08:19→14:55)
[2023-01-09] MEDS: Folic Acid 1 MG TABLET PO (08:19)
[2023-01-09] MEDS: 0.9 % Sodium Chloride Flush 3 ML SYRINGE IVFLUSH (08:19)
[2023-01-09] MEDS: Furosemide 20 MG TABLET PO (08:20)
[2023-01-09] MEDS: Thiamine HCL 100 MG TABLET PO (08:20)
[2023-01-09] MEDS: Metoprolol Tartrate 100 MG TABLET PO (08:20)
[2023-01-09] MEDS: Gabapentin 300 MG CAPSULE PO ×2 (08:20→14:56)
[2023-01-09] MEDS: Magnesium Oxide 400 MG TABLET PO (08:20)
[2023-01-09] MEDS: Digoxin 0.125 MG TABLET PO (08:20)
[2023-01-09] MEDS: Amiodarone HCL 200 MG TABLET PO (08:20)
[2023-01-09] MEDS: Apixaban 5 MG TABLET PO (08:20)
[2023-01-09] MEDS: Silver Sulfadiazine 1 % Cream 20 GM TUBE 1 APPL TOPICAL (08:21)
--- NOTE | 2023-01-09 11:12 | MHC.CM.PN ---
Addendum entered by Jeri Davies 01/09/23 13:18: Transportation booked for 3pm today via [facility]. Original Note: EMR reviewed, and per MD rounds, pt medically cleared for D/C today. Updated [place] via [facility], and spoke with [employer] supervisor December to confirm resumption of home care services. Called [facility] to book transportation, awaiting insurance verification from [facility].
[2023-01-09 11:52] VITALS: BP 110/61; PULSE 76; RESP 20; TEMP 36.7; O2SAT 98
[2023-01-09 12:00] VITALS: BP 134/77; PULSE 78; RESP 20; TEMP 36.8; O2SAT 98
--- NOTE | 2023-01-09 16:02 | HO.VASCPN ---
Subjective Subjective Date of Service: 01/09/23 Patient reports: no new complaints Interval history: Very complex 62-year-old gentleman presents for follow-up evaluation regarding nonhealing bilateral lower extremity ulcers. He has prior roberts of bilateral lower extremities along with significant contractures. He has undergone CT angiogram and now presents for follow-up discussion regarding his lower extremities. Physical Exam Vital Signs: Vital Signs: Last Vital Signs Temp 98.2 F 01/09/23 12:00 Pulse 78 01/09/23 12:00 Resp 20 01/09/23 12:00 BP 134/77 01/09/23 12:00 Pulse Ox 98 01/09/23 12:00 O2 Del Method Room Air 01/09/23 12:00 BMI result Body Mass Index 22.4 Const: General: cooperative, healthy appearing and no acute distress Orientation/consciousness: oriented to person, oriented to place and oriented to time HEENT: Head: Yes normal to inspection Neck: Carotids: no bruits Chest: Chest palpation & inspection: normal inspection of the chest Resp: Effort & Inspection: normal respiratory effort and able to speak in complete sentences Auscultation: clear to auscultation bilaterally Cardio: Other: Bilateral DP signals Rate: regular rate Heart sounds: S1 normal heart sound present and S2 normal heart sound present GI: Inspection: Yes normal to inspection Skin: Other: Bilateral nonhealing lower extremity ulcers right greater than left General skin exam: no rashes or lesions noted Wounds: no wounds Neuro: General: oriented to person, oriented to place, oriented to time and CN's II-XI intact bilaterally Extrem: General: Yes normal to inspection, Yes full ROM and Yes no clubbing, cyanosis or edema Psych: Appearance: grossly normal and well kempt Speech and movement: Normal speech and movement present Affect: normal affect Progress Note: A&P Assessment and plan (1) Bilateral leg ulcer: Status: Acute Assessment and Plan: In short patient has severe nonhealing bilateral lower extremity ulcers. He has had several attempts at conservative therapy. It was actually requested by the [facility] that I do offer him bilateral above knee amputations. He has refused this. I did have an extensive discussion with him about his CT scan and he has severe iliac disease along with outflow runoff disease. Due to his overall condition I do not think this is reconstructible. He may need some intervention even prior to the above knee amputations. At the current time he had made mention of several skin substitutes that I am not familiar with that he would like to try. In addition he today requested that he would like to have a 2nd opinion. I did encourage him to get a 2nd opinion. I would be happy to forward my records to whoever he should wish. Happy to see him back if he agrees to proceed with above knee amputations. Thank you for allowing us to assist in his care. If there are any questions or concerns please do not hesitate to contact us. (2) PAD (peripheral artery disease): Status: Acute Time Spent With Patient Time: Total time managing care of this patient today __60__ minutes. Please note this was an extended visit due to the extensive discussion of above knee amputations bilaterally. The time was spent between imaging review where I did review the images and is discuss this with the radiology staff as well, chart review of events over the past weekend, discussion with the hospitalist team, direct patient contact along with physical examination. Procedures Date of Service Date of Service: 01/09/23 Quality Stroke Does the patient have a stroke diagnosis?: No VTE Prior VTE?: No VTE Risk Level:: Medical - moderate - high VTE Device Contraindication: Treatment Not Indicated VTE Drug Contraindication: N/A - Med Ordered
== END 2023-01-09 17:00 | disposition home health service (06) | DRG 201 ==
LOC: HO.ED 21:07 → HO.EDOVER 01-04 07:11 → HO.IMC 01-04 07:36 → HO.EDOVER 01-05 13:23 → HO.IMC 01-05 13:23
PROVIDERS: Admitting Provider Internal Medicine; Emergency Provider Emergency Medicine; PCP Nurse Practitioner Family; Visit Provider Internal Medicine
DX: I48.19 Other persistent atrial fibrillation (principal); L89.40 Pressure ulcer of contiguous site of back, buttock and hip, unspecified stage; I11.0 Hypertensive heart disease with heart failure; I50.22 Chronic systolic (congestive) heart failure; E83.42 Hypomagnesemia; M24.59 Contracture, other specified joint; T24.30 Burn of third degree of unspecified site of lower limb, except ankle and foot; W39.XXXS Discharge of firework, sequela; I25.10 Atherosclerotic heart disease of native coronary artery without angina pectoris; I25.5 Ischemic cardiomyopathy; I73.9 Peripheral vascular disease, unspecified; Z91.148 Patient's other noncompliance with medication regimen for other reason; Z91.199 Patient's noncompliance with other medical treatment and regimen due to unspecified reason; Z87.891 Personal history of nicotine dependence; Z79.01 Long term (current) use of anticoagulants; Z79.899 Other long term (current) drug therapy
CPT/HCPCS: 36415; 71045; 75635; 80048; 80076; 83605; 83735; 83880; 84439; 84443; 84484; 85025; 85610; 87040; 93005; 99222; 99285; J1160; J1170; J2270; J3475; Q9967

== ENCOUNTER 2023-01-11 16:08 | Emergency (ER) | payer OTHER, SELFPAY ==
--- NOTE | ~2023-01-11 | XR_ITS ---
Examination: XR tibia fibula RT 2V, XR tibia fibula LT 2V Indication: leg wounds Comparison: 09/13/2022 examination Technique: Frontal and lateral views of both tibia and fibula obtained Findings: Left: Soft tissue irregularities and overlying calcific densities seen more so along the mid to distal lateral aspect of the left calf. I'm uncertain if the density is due to overlying treatment/management material. No acute bony abnormality. Specifically no acute fracture or dislocation. Degenerative changes about the ankle and visualized knee. Extensive vascular calcification seen Right: More extensive soft tissue deformity with overlying calcifications are seen on the right. Again I'm uncertain if the calcifications are due to overlying treatment/bandage material. There is soft tissue irregularity seen more so along the posterior mid to distal calf. Again no acute fracture or dislocation seen with mild degenerative changes in the visualized knee and ankle. Prominent vascular calcifications are seen XR/XR tibia fibula LT 2V Impression: Extensive soft tissue changes bilaterally as described above. I'm uncertain if the calcifications are due to overlying treatment/management material. Specifically no acute fracture or dislocation seen.
--- NOTE | ~2023-01-11 | XR_ITS ---
Examination: XR tibia fibula RT 2V, XR tibia fibula LT 2V Indication: leg wounds Comparison: 09/13/2022 examination Technique: Frontal and lateral views of both tibia and fibula obtained Findings: Left: Soft tissue irregularities and overlying calcific densities seen more so along the mid to distal lateral aspect of the left calf. I'm uncertain if the density is due to overlying treatment/management material. No acute bony abnormality. Specifically no acute fracture or dislocation. Degenerative changes about the ankle and visualized knee. Extensive vascular calcification seen Right: More extensive soft tissue deformity with overlying calcifications are seen on the right. Again I'm uncertain if the calcifications are due to overlying treatment/bandage material. There is soft tissue irregularity seen more so along the posterior mid to distal calf. Again no acute fracture or dislocation seen with mild degenerative changes in the visualized knee and ankle. Prominent vascular calcifications are seen XR/XR tibia fibula RT 2V Impression: Extensive soft tissue changes bilaterally as described above. I'm uncertain if the calcifications are due to overlying treatment/management material. Specifically no acute fracture or dislocation seen.
[2023-01-11 16:12] VITALS: BP 138/74; BP 140/90; PULSE 109; PULSE 94; RESP 16; TEMP 36.9; O2SAT 96; O2SAT 99; BMI 23.3
[2023-01-11 16:18] VITALS: PULSE 110; RESP 16
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
[2023-01-11 17:07] LABS: MANUAL DIFF FLAG NO
[2023-01-11 17:21] LABS: Basophils Absolute Auto 0.1 X10*3/uL (0.0-0.2); Basophils Percent Auto 0.6 % (0-2); Eosinophils Absolute Auto 0.2 X10*3/uL (0.0-0.4); Hematocrit 33.8 % (42.0-52.0); Hemoglobin 10.3 g/dl (14.0-18.0); Imm Gran Abs Auto 0.08 X10*3/uL (0.00-0.03); Imm Gran Pct Auto 0.9 % (0.0-0.4); Lymphocytes Absolute Auto 1.2 X10*3/uL (1.2-4.9); Mean Corpuscular HGB Conc 30.5 g/dl (31.0-36.0); Mean Corpuscular Hemoglobin 24.5 pg (27.0-33.0); Mean Corpuscular Volume 80.3 fL (80.0-98.0); Mean Platelet Volume 8.9 fL (9.4-12.4); Monocytes Absolute Auto 1.2 X10*3/uL (0.1-1.2); Monocytes Percent Auto 13.5 % (2-11); Neutrophils Absolute Auto 6.1 x10*3/uL (2.0-8.3); Platelet Count 467 X10*3/uL (160-400); Red Blood Count 4.21 X10*6/uL (4.60-5.80); Red Cell Distribution Width 18.6 % (11.0-16.0); White Blood Count 8.8 X10*3/uL (4.8-10.8)
[2023-01-11 17:22] LABS: Anion Gap 16 (12-20); Blood Urea Nitrogen 17 mg/dL (9-16); Carbon Dioxide 28 mmol/L (22-29); Chloride 95 mmol/L (96-108); Creatinine Clr Calc Pharmacy 94.2; Estimated Glomerular Filt Rate > 60; Glucose Random 88 mg/dL (60-115); Potassium 3.8 mmol/L (3.3-5.1); Sodium 135 mmol/L (135-145)
[2023-01-11 17:29] LABS: Lactic Acid 1.4 mmol/L (0.5-2.0)
[2023-01-11 18:42] VITALS: BP 170/87; PULSE 78; RESP 16; O2SAT 95
--- NOTE | 2023-01-11 18:43 | PC.NURSE ---
Pt alert/oriented. Reports chronic wounds to b/l legs since last March. Recently admitted for a fib. Wounds to legs noted (pictures in chart by provider). Legs redressed with dcd. Pt tolerated well. Awaits dispo. Multiple areas of slough and necrotic tissue to b/l legs. Heavy purulent drainage with old dressings. +odor.
[2023-01-11 19:29] VITALS: BP 160/81; PULSE 91; RESP 17; TEMP 36.4; O2SAT 98
--- NOTE | 2023-01-11 19:49 | MHC.EDTECH ---
Call out to [facility] for transport back home, patient has [facility]
--- NOTE | 2023-01-11 20:46 | PC.NURSE ---
is removed at time of discharge. pt denies pain at this time. pt provided with discharge packet. pt verbalized understanding of discharge plan. ems transportation to pt home. this rn provided ems report at time of transport home.
== END 2023-01-11 20:48 | disposition home or self-care (01) ==
PROVIDERS: Emergency Provider Student in an Organized Health Care Education/Training Program; PCP Nurse Practitioner Family
DX: S41.101A Unspecified open wound of right upper arm, initial encounter (principal); S41.102A Unspecified open wound of left upper arm, initial encounter; S81.802A Unspecified open wound, left lower leg, initial encounter; S81.801A Unspecified open wound, right lower leg, initial encounter; M79.605 Pain in left leg; M79.604 Pain in right leg; X58.XXXA Exposure to other specified factors, initial encounter; Y93.9 Activity, unspecified; Y92.9 Unspecified place or not applicable; Y99.9 Unspecified external cause status; Z48.00 Encounter for change or removal of nonsurgical wound dressing; Z79.899 Other long term (current) drug therapy; Z87.891 Personal history of nicotine dependence
CPT/HCPCS: 36415; 73590; 80048; 83605; 85025; 87040; 99283; 99284

== ENCOUNTER → 2023-01-25 14:05 | Outpatient (BNVA) | payer OTHER, SELFPAY | PROVIDERS: PCP Nurse Practitioner Family; Referring Provider Nurse Practitioner Family; Visit Provider Surgery ==

== ENCOUNTER → 2023-02-06 14:39 | Outpatient (BNVA) | payer OTHER, SELFPAY | PROVIDERS: PCP Nurse Practitioner Family; Visit Provider Nurse Practitioner Family ==

== ENCOUNTER 2023-02-09 16:51 | Inpatient (IN) | payer OTHER, SELFPAY ==
[2023-02-09 17:03] VITALS: BP 136/89; BP 140/100; PULSE 101; PULSE 87; RESP 18; TEMP 36.3; O2SAT 97; O2SAT 98; BMI 22.7
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
[2023-02-09 19:45] LABS: MANUAL DIFF FLAG NO
[2023-02-09 19:48] LABS: Basophils Absolute Auto 0.1 X10*3/uL (0.0-0.2); Eosinophils Absolute Auto 0.1 X10*3/uL (0.0-0.4); Eosinophils Percent Auto 1.1 % (0-4); Hematocrit 30.8 % (42.0-52.0); Hemoglobin 9.4 g/dl (14.0-18.0); Imm Gran Abs Auto 0.08 X10*3/uL (0.00-0.03); Imm Gran Pct Auto 0.7 % (0.0-0.4); Lymphocytes Absolute Auto 1.7 X10*3/uL (1.2-4.9); Lymphocytes Percent Auto 14.4 % (20-40); Mean Corpuscular HGB Conc 30.5 g/dl (31.0-36.0); Mean Corpuscular Hemoglobin 24.5 pg (27.0-33.0); Mean Corpuscular Volume 80.2 fL (80.0-98.0); Monocytes Absolute Auto 0.8 X10*3/uL (0.1-1.2); Monocytes Percent Auto 6.7 % (2-11); Neutrophils Absolute Auto 8.8 x10*3/uL (2.0-8.3); Neutrophils Percent Auto 76.1 % (45-73); Platelet Count 465 X10*3/uL (160-400); Red Blood Count 3.84 X10*6/uL (4.60-5.80); Red Cell Distribution Width 20.7 % (11.0-16.0); White Blood Count 11.6 X10*3/uL (4.8-10.8)
[2023-02-09 20:00] LABS: Lactic Acid 2.1 mmol/L (0.5-2.0)
[2023-02-09 20:02] LABS: COVID-19 Test Negative (Negative); IDNOW Serial# BCCEAD1C
[2023-02-09 20:03] LABS: Alanine Aminotransferase < 5 U/L (0-40); Albumin Level 3.1 g/dL (3.5-5.0); Alkaline Phosphatase 80 U/L (39-117); Anion Gap 17 (12-20); Aspartate Amino Transferase 9 U/L (5-37); Bilirubin Total 0.5 mg/dL (0.0-1.0); Blood Urea Nitrogen 16 mg/dL (9-16); C Reactive Protein 11.48 mg/dL (< or = 0.50); Calcium 8.6 mg/dL (8.4-10.2); Carbon Dioxide 19 mmol/L (22-29); Chloride 106 mmol/L (96-108); Creatinine Clr Calc Pharmacy 109.9; Estimated Glomerular Filt Rate > 60; Glucose Random 67 mg/dL (60-115); Magnesium 1.8 mg/dL (1.6-2.6); Potassium 4.7 mmol/L (3.3-5.1); Sodium 137 mmol/L (135-145); Total Protein 6.7 g/dL (6.5-8.0)
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
[2023-02-09 20:09] VITALS: RESP 20
[2023-02-09] MEDS: Morphine Sulfate 4 MG/ML CARTRIDGE IVPUSH (20:09)
[2023-02-09] MEDS: 0.9 % Sodium Chloride 1,000 ML 999 ML IV ×2 (20:09→21:55)
[2023-02-09] MEDS: Piperacillin Sodium/Tazobactam 3.375 GM in 0.9 % Sodium Chloride 50 ML IV (20:10)
--- NOTE | 2023-02-09 20:24 | PHA.MEDREC ---
Pharmacy Consult ? Medication Reconciliation Pharmacy has completed the medication reconciliation. Med rec done and meds confirmed with patient. Pt states he stopped gabapentin and silver sufadiazine since his discharge last month. Cephalexin was recently started but patient is not completely sure how much longer he had on treatment although he says he took his morning dose of this medication today.
[2023-02-09 20:39] LABS: Erythrocyte Sedimentation Rate 80 MM/HR (0-15)
[2023-02-09] MEDS: vancomycin HCL 1,000 MG, vancomycin HCL 750 MG in 0.9 % Sodium Chloride 500 ML 267.5 MG IV (21:22)
[2023-02-09 21:44] LABS: Reflex Lactate? Lactic Acid Added
--- NOTE | 2023-02-09 21:56 | PC.NURSE ---
Spoke with Dr. Bull (hospitalist) regarding Cefepime & Sodium Hypochlorite solution administration. Instructed to hold, to be administered tomorrow. Aware that Vancomycin is currently infusing as ordered, and Zosyn has also already been administered as well. Sodium Hypochlorite was brought to bedside by pharmacy and is at bedside.
[2023-02-09 22:32] LABS: ~Lactic Acid-LAB USE ONLY 1.8 mmol/L (0.5-2.0)
[2023-02-09 22:34] VITALS: RESP 20
[2023-02-09] MEDS: HYDROmorphone HCl 1 MG/ML SYRINGE IVPUSH (22:34)
[2023-02-09 22:40] VITALS: BP 119/78; PULSE 100; RESP 20; O2SAT 100
[2023-02-10] VITALS (8 sets, daily range): BP systolic 100–141; BP diastolic 59–86; PULSE 60–143; RESP 17–20; TEMP 36.4–37.3; O2SAT 95–98; BMI 22.8
[2023-02-10] MEDS: 0.9 % Sodium Chloride Flush 3 ML SYRINGE IVFLUSH ×4 (00:26→19:22)
[2023-02-10] MEDS: Morphine Sulfate 4 MG/ML CARTRIDGE IVPUSH ×3 (00:30→16:02)
[2023-02-10] MEDS: HYDROmorphone HCl 2 MG/ML VIAL IVPUSH (02:03)
[2023-02-10 06:14] LABS: MANUAL DIFF FLAG NO
[2023-02-10 06:18] LABS: Basophils Absolute Auto 0.1 X10*3/uL (0.0-0.2); Basophils Percent Auto 0.5 % (0-2); Eosinophils Absolute Auto 0.1 X10*3/uL (0.0-0.4); Eosinophils Percent Auto 0.4 % (0-4); Hemoglobin 9.2 g/dl (14.0-18.0); Imm Gran Abs Auto 0.09 X10*3/uL (0.00-0.03); Imm Gran Pct Auto 0.7 % (0.0-0.4); Lymphocytes Absolute Auto 0.9 X10*3/uL (1.2-4.9); Mean Corpuscular HGB Conc 29.7 g/dl (31.0-36.0); Mean Corpuscular Hemoglobin 24.2 pg (27.0-33.0); Mean Corpuscular Volume 81.6 fL (80.0-98.0); Monocytes Absolute Auto 0.9 X10*3/uL (0.1-1.2); Monocytes Percent Auto 6.5 % (2-11); Neutrophils Absolute Auto 11.4 x10*3/uL (2.0-8.3); Neutrophils Percent Auto 84.9 % (45-73); Platelet Count 411 X10*3/uL (160-400); White Blood Count 13.4 X10*3/uL (4.8-10.8)
[2023-02-10 06:27] LABS: Anion Gap 11 (12-20); Blood Urea Nitrogen 9 mg/dL (9-16); Calcium 8.1 mg/dL (8.4-10.2); Carbon Dioxide 21 mmol/L (22-29); Chloride 106 mmol/L (96-108); Creatinine Clr Calc Pharmacy 113.4; Estimated Glomerular Filt Rate > 60; Glucose Random 72 mg/dL (60-115); Potassium 4.1 mmol/L (3.3-5.1); Sodium 134 mmol/L (135-145)
[2023-02-10] MEDS: HYDROmorphone HCl 1 MG/ML SYRINGE IVPUSH ×5 (06:37→21:00)
--- NOTE | 2023-02-10 07:04 | PC.NURSE ---
Assumed care of patient this am. Patient A&O x4, arrived to ED overflow in excruciating pain 10/10 in bilateral lower extremities .Morphine 4 mg IV administered as ordered without good effect. Patient continued to experience 10/10 pain. Order obtained for Dilaudid 1 mg IV x1.. Dressings on bilateral legs changed , CDI at present. Cefipime IV not given this am. Pharmacy to load in xis. Patient resting quietly at present. Report given to oncoming RN.
[2023-02-10] MEDS: Metoprolol Tartrate 100 MG TABLET PO ×2 (08:16→21:05)
[2023-02-10] MEDS: cefEPime HCl 2 GM in 0.9 % Sodium Chloride 50 ML IV ×2 (08:16→16:05)
[2023-02-10] MEDS: Furosemide 20 MG TABLET PO (08:16)
[2023-02-10] MEDS: Folic Acid 1 MG TABLET PO (08:16)
[2023-02-10] MEDS: Thiamine HCL 100 MG TABLET PO (08:16)
[2023-02-10] MEDS: Digoxin 0.125 MG TABLET PO (08:16)
[2023-02-10] MEDS: Magnesium Oxide 400 MG TABLET PO ×2 (08:16→17:10)
[2023-02-10] MEDS: Amiodarone HCL 200 MG TABLET PO (08:16)
--- NOTE | 2023-02-10 08:21 | PC.NURSE ---
patient a&ox3, pt found to be tachy- will move patient to apply diagnostic cardiac sonographer and to provide some privacy as patient has been yelling out in pain. Upon taking report this am it was noted that dakins as well as abx ordered last evening hadnt been administered- this nurse spoke with Dr. Mccann asking to clarify orders as this nurse was told in report that the abx was for the OR, Dr. Mccann stated the abx need to be given as ordered they are not for the OR, he also added pain medications for the patient- technical manager chemical plant Angie was also notified. This nurse obtained the abx from the main ed and administered, pharmacy was called for dakins- awaiting its arrival to do dressing changes- the dressings were changed by prior shift but without dakins. pt was medicated for pain per order, he also took all PO medications with water. Call farafn within reach, will continue to monitor
--- NOTE | 2023-02-10 08:30 | PC.NURSE ---
pt moved to overflow room 1 placed on physician aide- pt noted to be in afib on the monitor- pt does have history of afib, dr. jones aware that we placed the patient on a monitor due to his increased HR during vitals as he was told when he was at bedside speaking with the patient.
[2023-02-10] MEDS: vancomycin HCL 1,000 MG in 0.9 % Sodium Chloride 250 ML 270 MG IV ×2 (09:32→21:08)
[2023-02-10] MEDS: Sodium Hypochlorite 0.5% 473 ML SOLUTION 1 APPL TOPICAL (09:38)
--- NOTE | 2023-02-10 09:44 | MHC.CM.PN ---
Addendum entered by Tamera Rojas 02/10/23 15:01: P IS NO LONGER ACTIVE WITH [facility] AND THEY ARE UNABLE TO ACCEPT BACK. REFERRALS SENT FOR AGENCIES THAT ARE CONTRACTED WITH HIS INSURANCE. AWAITING RESPONSES. Original Note: CM MET WITH PT AT BEDSIDE. PT LIVES ALONE IN AN APT. HAS [facility] FOR WOUND CARE, ATTEN[place] [facility] AND HAS [facility] FOR [facility]. 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 +HCP ON FILE. +C[place]AX [place] [facility] [place] WITH RESUMPTION OF SERVICES. RETURN REFERRAL SENT TO [facility]. PT WILL NEED BLS TRANSPORT HOME. CM WILL CONTINUE TO FOLLOW FOR DC NEEDS.
--- NOTE | 2023-02-10 10:11 | PC.NURSE ---
patient had BLE dressing changes performed surgeon came to bedside to assess patient as the pt was getting the dressings changed, the surgeon stated going forward he does not need dakins and dressings could be dry sterile dressings with non stick-Dr. Mccann was notified of this, pt tolerated the dressing changes well. IV vanco running per order, call farfan within reach, will continue to monitor
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
[2023-02-10] MEDS: Enoxaparin Sodium 40 MG/0.4 ML SYRINGE SUBCUT (12:26)
--- NOTE | 2023-02-10 12:30 | PC.NURSE ---
patient a&ox3, afib on rn cardiac cath, pt medicated for 10/10 ble pain, pt was given his meal will continue to monitor
--- NOTE | 2023-02-10 13:18 | PC.NURSE ---
called floor to give report, nursing staff on lunch will call back to get report
--- NOTE | 2023-02-10 14:23 | PC.NURSE ---
report given to floor nurse transport notified
--- NOTE | 2023-02-10 14:37 | MHC.EDTECH ---
Per Nurse Vitals taken at 1435. Blood Pressure 91/62, Pulse 107 Left upper arm, Temp 98.8, Oxygen 99%, Respiration 20. Aziza O
--- NOTE | 2023-02-10 18:32 | PC.NURSE ---
assumed care at 1500. Pt was in severe pain. Given PRN medications. Pain is better controlled. Right leg wound dressing was changed. left leg was undone because pt refused.
[2023-02-10] MEDS: Atorvastatin Calcium 40 MG TABLET PO (21:05)
[2023-02-11] MEDS: cefEPime HCl 2 GM in 0.9 % Sodium Chloride 50 ML IV ×3 (00:04→16:04)
[2023-02-11 01:00] VITALS: BP 100/50
[2023-02-11] MEDS: HYDROmorphone HCl 1 MG/ML SYRINGE IVPUSH ×5 (01:06→20:33)
[2023-02-11 03:41] VITALS: BP 131/66; PULSE 74; RESP 18; TEMP 36.1; O2SAT 98
[2023-02-11 05:09] VITALS: BP 134/70; PULSE 71
[2023-02-11] MEDS: Omeprazole 40 MG CAPSULE.DR PO (05:13)
[2023-02-11 07:08] LABS: Hematocrit 30.6 % (42.0-52.0); Mean Corpuscular HGB Conc 29.4 g/dl (31.0-36.0); Mean Corpuscular Hemoglobin 23.8 pg (27.0-33.0); Platelet Count 363 X10*3/uL (160-400); Red Blood Count 3.78 X10*6/uL (4.60-5.80); Red Cell Distribution Width 20.3 % (11.0-16.0); White Blood Count 11.7 X10*3/uL (4.8-10.8)
[2023-02-11 07:26] LABS: Vancomycin Random 12.2 mcg/mL (15-20)
[2023-02-11 07:30] LABS: Anion Gap 12 (12-20); Blood Urea Nitrogen 10 mg/dL (9-16); Calcium 8.4 mg/dL (8.4-10.2); Carbon Dioxide 22 mmol/L (22-29); Chloride 101 mmol/L (96-108); Creatinine Clr Calc Pharmacy 103.9; Estimated Glomerular Filt Rate > 60; Glucose Fasting 102 mg/dL (60-99); Potassium 3.9 mmol/L (3.3-5.1); Sodium 131 mmol/L (135-145)
[2023-02-11] MEDS: 0.9 % Sodium Chloride Flush 3 ML SYRINGE IVFLUSH ×3 (07:31→20:33)
[2023-02-11] MEDS: Magnesium Oxide 400 MG TABLET PO ×2 (07:31→17:25)
--- NOTE | 2023-02-11 07:37 | HE.PHANOTE ---
Vancomycin Dosing Addendum Patients level came back this morning 12.2. Patient has skin infection and is within AUC. Will continue current dose of 1000 mg Q12H, will get another level tomorrow 11/15 @0700. PRedicted AUC 458 mg/L/hr
[2023-02-11 07:48] VITALS: BP 141/74; PULSE 80; RESP 17; TEMP 36.3; O2SAT 96
[2023-02-11] MEDS: Thiamine HCL 100 MG TABLET PO (08:26)
[2023-02-11] MEDS: vancomycin HCL 1,000 MG in 0.9 % Sodium Chloride 250 ML 270 MG IV ×2 (08:26→20:32)
[2023-02-11] MEDS: Furosemide 20 MG TABLET PO (08:26)
[2023-02-11] MEDS: Amiodarone HCL 200 MG TABLET PO (08:26)
[2023-02-11] MEDS: Digoxin 0.125 MG TABLET PO (08:26)
[2023-02-11] MEDS: Metoprolol Tartrate 100 MG TABLET PO ×2 (08:27→20:33)
[2023-02-11] MEDS: Folic Acid 1 MG TABLET PO (08:27)
[2023-02-11] MEDS: Morphine Sulfate 4 MG/ML CARTRIDGE IVPUSH ×3 (13:11→22:34)
[2023-02-11 16:19] VITALS: BP 128/76; PULSE 88; RESP 18; TEMP 36.7; O2SAT 96
--- NOTE | 2023-02-11 18:02 | PC.NURSE ---
Left leg dressing taken down. Wound cleansed with saline. New wet to dry dressing placed to leg, covered with ABD pad and wrapped in cling. [facility] refused to have the right leg done. Stated They can do it tonight .
[2023-02-11] MEDS: HYDROmorphone HCl 2 MG TABLET PO (18:53)
[2023-02-11] MEDS: Atorvastatin Calcium 40 MG TABLET PO (20:33)
[2023-02-12] VITALS: BP 107/65; PULSE 80; RESP 16; TEMP 36.4; O2SAT 91
[2023-02-12] MEDS: cefEPime HCl 2 GM in 0.9 % Sodium Chloride 50 ML IV ×4 (00:29→23:25)
[2023-02-12] MEDS: HYDROmorphone HCl 1 MG/ML SYRINGE IVPUSH ×5 (00:29→17:50)
[2023-02-12 04:45] VITALS: BP 122/71; PULSE 81; TEMP 36.6; O2SAT 100
[2023-02-12] MEDS: Omeprazole 40 MG CAPSULE.DR PO (05:35)
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
[2023-02-12 07:41] LABS: Vancomycin Random 12.6 mcg/mL (15-20)
[2023-02-12 07:43] VITALS: BP 120/63; PULSE 79; RESP 17; TEMP 36.7; O2SAT 99
[2023-02-12 07:43] LABS: Creatinine Clr Calc Pharmacy 112.2; Estimated Glomerular Filt Rate > 60
--- NOTE | 2023-02-12 08:00 | HE.PHANOTE ---
Vancomycin Dosing Addendum Patients level came back this morning at 12.6, rx insight says that the AUC will eventually become subtherapeutic. Will increase dose for now to 1250 mg Q12H, level for tomorrow @0700 to ensure safety vs efficacy. Predicted AUC 518
[2023-02-12] MEDS: Morphine Sulfate 4 MG/ML CARTRIDGE IVPUSH ×4 (08:03→21:26)
[2023-02-12] MEDS: Furosemide 20 MG TABLET PO (08:05)
[2023-02-12] MEDS: Amiodarone HCL 200 MG TABLET PO (08:05)
[2023-02-12] MEDS: Folic Acid 1 MG TABLET PO (08:05)
[2023-02-12] MEDS: Digoxin 0.125 MG TABLET PO (08:06)
[2023-02-12] MEDS: Thiamine HCL 100 MG TABLET PO (08:06)
[2023-02-12] MEDS: Metoprolol Tartrate 100 MG TABLET PO ×2 (08:06→21:26)
[2023-02-12] MEDS: Magnesium Oxide 400 MG TABLET PO ×2 (08:06→16:50)
[2023-02-12] MEDS: 0.9 % Sodium Chloride Flush 3 ML SYRINGE IVFLUSH ×2 (08:08→16:15)
--- NOTE | 2023-02-12 08:27 | MHC.CM.PN ---
PT COULD POTENTIALLY DC HOME HOWEVER THERE ARE NO ACCEPTING [facility] AGENCIES TO PROVIDE WOUND CARE. ALL [facility] CONTRACTED AGENCIES HAVE BEEN CONTACTED, NO ONE IS ABLE TO ACCEPT.
[2023-02-12] MEDS: vancomycin HCL 1,250 MG in 0.9 % Sodium Chloride 250 ML 166.67 MG IV (08:51)
--- NOTE | 2023-02-12 09:02 | P.PNIM_ITS ---
Subjective Subjective Date of Service: 02/12/23 Interval History: pain ENT Ears, Nose, Mouth, and Throat: Reports Normal hearing present Neurologic Neurologic: Reports Normal hearing present Physical Exam Vital Signs: Vital Signs: Last Vital Signs Temp 98.1 F 02/12/23 07:43 Pulse 79 02/12/23 07:43 Resp 17 02/12/23 07:43 BP 120/63 02/12/23 07:43 Pulse Ox 99 02/12/23 07:43 O2 Del Method Room Air 02/12/23 07:43 BMI result Body Mass Index 22.8 Const: General: cooperative, healthy appearing and comfortable Orientation/consciousness: oriented to person, oriented to place and oriented to time HEENT: Head: Yes normal to inspection Neck: Neck: Yes normal visual inspection Carotids: no bruits Chest: Chest palpation & inspection: normal inspection of the chest Resp: Effort & Inspection: normal respiratory effort and able to speak in complete sentences Auscultation: clear to auscultation bilaterally, no crackles, no rales, no rhonchi and no wheezes Cardio: Rate: regular rate Rhythm: regular rhythm Heart sounds: S1 normal heart sound present and S2 normal heart sound present Bruits: no carotid bruits Peripheral pulses: Peripheral pulses 2+ throughout GI: Inspection: Yes normal to inspection Skin: Other: Significant bilateral lower extremity ulcerations with exposed tendon. Contractures of knees. Right greater than left Wounds: no wounds Hair: normal Neuro: General: oriented to person, oriented to place and oriented to time Cranial nerves: Yes Normal hearing present Cognition (Neuro): normal cognition Motor exam (neuro): 5/5 motor strength present throughout Extrem: Other: venous exam: No significant superficial varicosities or spider telangiectasias, minimal edema General: No clubbing, No cyanosis and No edema Psych: Appearance: grossly normal Mental Status: mental status grossly normal Speech and movement: Normal speech and movement present Objective Data Active Medications Acetaminophen (Acetaminophen 325 Mg Tablet) 650 mg PO Q6H PRN PRN Reason: Pain, Mild (Pain Scale 1-3) Amiodarone HCl (Amiodarone Hcl 200 Mg Tablet) 200 mg PO DAILY [facility] [place] Last Admin: 02/12/23 08:05 Dose: 200 mg Documented By: GRAZIC Atorvastatin Calcium (Atorvastatin Calcium 40 Mg Tablet) 40 mg PO BEDTIME [facility] [place] Last Admin: 02/11/23 20:33 Dose: 40 mg Documented By: ADI Digoxin (Digoxin 0.125 Mg Tablet) 0.125 mg PO DAILY [facility] [place] Last Admin: 02/12/23 08:06 Dose: 0.125 mg Documented By: COLEEN Enoxaparin Sodium (Enoxaparin Sodium 40 Mg/0.4 Ml Syringe) 40 mg SUBCUT Q24H [facility] Last Admin: 02/11/23 09:39 Dose: Not Given Documented By: AIME Non-Admin Reason: Patient Refused Folic Acid (Folic Acid 1 Mg Tablet) 1 mg PO DAILY [facility] [place] Last Admin: 02/12/23 08:05 Dose: 1 mg Documented By: COLEEN Furosemide (Furosemide 20 Mg Tablet) 20 mg PO DAILY [facility]; Protocol Last Admin: 02/12/23 08:05 Dose: 20 mg Documented By: COLEEN Hydromorphone HCl (Hydromorphone Hcl 1 Mg/Ml Syringe) 1 mg IVPUSH Q4H PRN; Protocol PRN Reason: moderate pain Last Admin: 02/12/23 08:49 Dose: 1 mg Documented By: COLEEN Hydromorphone HCl (Hydromorphone Hcl 2 Mg Tablet) 2 mg PO Q4H PRN PRN Reason: moderate pain Last Admin: 02/11/23 18:53 Dose: 2 mg Documented By: COLEEN Cefepime HCl 2 gm/ Sodium (Chloride) 50 mls @ 100 mls/hr IV Q8H [facility] Last Infusion: 02/12/23 08:39 Dose: 0 mls/hr Documented By: COLEEN Vancomycin HCl 1,250 mg/ (Sodium Chloride) 250 mls @ 166.667 mls/hr IV Q12H [facility] [place] Last Admin: 02/12/23 08:51 Dose: 166.67 mls/hr Documented By: COLEEN Magnesium Oxide (Magnesium Oxide 400 Mg Tablet) 400 mg PO BIDPC [facility] [place] Last Admin: 02/12/23 08:06 Dose: 400 mg Documented By: COLEEN Melatonin (Melatonin 3 Mg Tablet) 6 mg PO BEDTIME PRN PRN Reason: Insomnia Metoprolol Tartrate (Metoprolol Tartrate 100 Mg Tablet) 100 mg PO BID [facility] [place]; Protocol Last Admin: 02/12/23 08:06 Dose: 100 mg Documented By: COLEEN Morphine Sulfate (Morphine Sulfate 4 Mg/Ml Cartridge) 4 mg IVPUSH Q4H PRN; Protocol PRN Reason: Pain, Severe (Pain Scale 7-10) Last Admin: 02/12/23 08:03 Dose: 4 mg Documented By: COLEEN Omeprazole (Omeprazole 40 Mg Capsule.) 40 mg PO DAILY@0630 [facility] [place] Last Admin: 02/12/23 05:35 Dose: 40 mg Documented By: ADI Ondansetron HCl (Ondansetron Hcl 4 Mg/2 Ml Vial) 4 mg IVPUSH Q8H PRN PRN Reason: Nausea and Vomiting Pharmacy Consult (Consult Rx Perform Med Rec) 1 each MISCELLANE ONCE PRN PRN Reason: Consult order Pharmacy Consult (Consult Rx Vancomycin Dosing) 1 each MISCELLANE DAILY PRN PRN Reason: Consult order Sodium Chloride (0.9 % Sodium Chloride Flush 3 Ml Syringe) 3 ml IVFLUSH QSHIFT [facility] Last Admin: 02/12/23 08:08 Dose: 3 ml Documented By: COLEEN Thiamine HCl (Thiamine Hcl 100 Mg Tablet) 100 mg PO DAILY [facility] Last Admin: 02/12/23 08:06 Dose: 100 mg Documented By: COLEEN Labs 02/11/23 06:43 02/12/23 06:59 Labs: Laboratory Results - last 24 hr 02/12/23 02/12/23 06:59 06:59 Estim Creat Clear Calc 112.2 Estimated GFR > 60 Random Vancomycin 12.6 L Microbiology Microbiology Results: Microbiology 02/09/23 20:03 Blood Culture - Preliminary Blood - Venous No growth after 48 hours. 02/09/23 19:27 Blood Culture - Preliminary Blood - Venous No growth after 48 hours. Assessment and Plan (1) Non-healing wound of right lower extremity: Status: Acute (2) Non-healing wound of left lower extremity: Status: Acute Plan 62M PMH ischemic cardiomypathy, chornic afib, PVD, chronic lower extremity burn wounds, copd, htn, presented with wound pain non healing burn wounds of bilateral lower extremities with possible superimposed cellulitis continue empiric vanc, cefepime plan for eventual bilateral AKA, (one at a time) with dr Azul ?inpt vs outpt patient is high risk and likely unmodifiable cardio for periop optimization chronic afib with rvr amio, dig, lopressor eliquis on hold for possible surgery chronic systolic chf/ CAD - triple vessel disease statin, beta miguel a copd stable dvt prophylaxis - lovenox full code reason for continued hospitalization: safe dispo Time Spent With Patient Time: Total time managing care of this patient today ____ minutes. Quality Stroke Does the patient have a stroke diagnosis?: No VTE Prior VTE?: No VTE Risk Level:: Medical - moderate - high VTE Device Contraindication: Treatment Not Indicated VTE Drug Contraindication: Treatment Not Indicated
[2023-02-12] MEDS: Enoxaparin Sodium 40 MG/0.4 ML SYRINGE SUBCUT (10:35)
--- NOTE | 2023-02-12 11:17 | PM.CNCAR ---
History of Present Illness History of Present Illness Date of Service: 02/12/23 Chief complaint: Leg infection Narrative: This is a cardiology consultation regarding preoperative stratification for a lower extremity amputation surgeries. He has multiple medical comorbidities and not much of insight into his issues. Has a history of chronic atrial fibrillation with less than optimal rate control, cardiomyopathy, coronary disease on medical management, chronic anemia, alcohol abuse. He has had frequent hospitalizations. At the current time, the issues mainly nonhealing lower extremity ulcers. For that reason, vascular surgery has seen him and recommend bilateral amputations. Overall, he states he is doing okay from cardiac standpoint. He does not have any chest pain or shortness of breath or anything cardiac sounding. Review of Systems Review of Systems: Yes all other systems are reviewed and are negative Constitutional: Constitutional: Reports as per HPI and Reports no additional constitutional complaints Eyes: Eyes: Reports as per HPI and Denies no additional eye complaints ENT: Denies system reviewed and no additional complaints, except as documented and Reports as per HPI Cardiovascular: Cardiovascular: Reports as per HPI, Reports no additional cardiovascular complaints, Denies acrocyanosis, Denies cool extremities, Denies chest pain, Denies leg edema, Denies lightheadedness, Denies palpitations and Denies dyspnea Respiratory: Respiratory: Reports as per HPI, Denies no additional respiratory complaints and Denies dyspnea Gastrointestinal: Gastrointestinal: Reports as per HPI and Denies no additional gastrointestinal complaints Genitourinary: Genitourinary: Reports no additional male genitourinary complaints and Reports as per HPI Musculoskeletal: Musculoskeletal: Reports no additional musculoskeletal complaints and Reports as per HPI Integumentary/Breasts: Skin/Breast: Reports system reviewed and no additional complaints, except as docu Neurologic: Reports system reviewed and no additional complaints, except as documented and Reports as per HPI Psychiatric: Psychiatric: Reports no additional psychiatric complaints and Reports as per HPI Endocrine: Endocrine: Reports no additional endocrine complaints, Reports as per HPI and Denies palpitations Hematologic/Lymphatic: Hematologic/Lymphatic: Reports no additional hematologic/lymphatic complaints and Reports as per HPI Allergic/Immunologic: Allergic/Immunologic: Reports no additional allergic/immunologic complaints and Reports as per HPI PMF Past Medical History Medical History A-fib Alcohol abuse Alcohol dependence Anemia Anemia Apical mural thrombus Atrial fibrillation Burn erythema of right lower extremity Burn of left lower extremity Cardiomyopathy CHF (congestive heart failure) Claudication of both lower extremities Complicated wound infection COPD (chronic obstructive pulmonary disease) COPD (chronic obstructive pulmonary disease) COPD exacerbation Coronary artery disease Hernia History of alcohol abuse HTN (hypertension) Family History Family History Mother Hx of CABG Surgical History Surgical History H/O left knee surgery History of cardiac cath Status post cardiac catheterization Social History Social History Household Members: Other Household Members Other:: none Housing: Apartment Housing Other:: Living with sister. Do you presently have visiting nurse or other home services: Yes Unable to assess alcohol history related to: Unknown Alcohol intake: former Year quit: 2020 Patient Tobacco Use Status: Current everyday Tobacco user Tobacco use type: Cigarette Cigarettes Per Day: 5 Years Smoked: 25 +/- e-Cigarette/Vaping Use: Never Used Second Hand Smoke Exposure: Yes Substance Use Type: Marijuana Advance Directives Date on File: 11/25/22 service: No Current occupational status: retired Cognitive needs: No Hearing needs: No Vision needs: No Meds Allergies Allergy/AdvReac Type Severity Reaction Status Date / Time bee pollen [BEE STINGS] Allergy Severe SWELLING Verified 02/09/23 17:10 Active Medications: Current Medications Acetaminophen (Acetaminophen 325 Mg Tablet) 650 mg PO Q6H PRN PRN Reason: Pain, Mild (Pain Scale 1-3) Amiodarone HCl (Amiodarone Hcl 200 Mg Tablet) 200 mg PO DAILY [facility] Last Admin: 02/12/23 08:05 Dose: 200 mg Atorvastatin Calcium (Atorvastatin Calcium 40 Mg Tablet) 40 mg PO BEDTIME [facility] Last Admin: 02/11/23 20:33 Dose: 40 mg Digoxin (Digoxin 0.125 Mg Tablet) 0.125 mg PO DAILY [facility] Last Admin: 02/12/23 08:06 Dose: 0.125 mg Enoxaparin Sodium (Enoxaparin Sodium 40 Mg/0.4 Ml Syringe) 40 mg SUBCUT Q24H [facility] Last Admin: 02/12/23 10:35 Dose: 40 mg Folic Acid (Folic Acid 1 Mg Tablet) 1 mg PO DAILY [facility] Last Admin: 02/12/23 08:05 Dose: 1 mg Furosemide (Furosemide 20 Mg Tablet) 20 mg PO DAILY [facility]; Protocol Last Admin: 02/12/23 08:05 Dose: 20 mg Hydromorphone HCl (Hydromorphone Hcl 1 Mg/Ml Syringe) 1 mg IVPUSH Q4H PRN; Protocol PRN Reason: moderate pain Last Admin: 02/12/23 08:49 Dose: 1 mg Hydromorphone HCl (Hydromorphone Hcl 2 Mg Tablet) 2 mg PO Q4H PRN PRN Reason: moderate pain Last Admin: 02/11/23 18:53 Dose: 2 mg Cefepime HCl 2 gm/ Sodium (Chloride) 50 mls @ 100 mls/hr IV Q8H [facility] Last Infusion: 02/12/23 08:39 Dose: Infused Vancomycin HCl 1,250 mg/ (Sodium Chloride) 250 mls @ 166.667 mls/hr IV Q12H [facility] Last Infusion: 02/12/23 10:25 Dose: Infused [facility]esium Oxide ([facility] 400 Mg [facility]t) [facility] Last Admin: 02/12/23 08:06 Dose: 400 mg Melatonin (Melatonin 3 Mg Tablet) 6 mg PO BEDTIME PRN PRN Reason: Insomnia Metoprolol Tartrate (Metoprolol Tartrate 100 Mg Tablet) 100 mg PO BID [facility]; Protocol Last Admin: 02/12/23 08:06 Dose: 100 mg Morphine Sulfate (Morphine Sulfate 4 Mg/Ml Cartridge) 4 mg IVPUSH Q4H PRN; Protocol PRN Reason: Pain, Severe (Pain Scale 7-10) Last Admin: 02/12/23 08:03 Dose: 4 mg Omeprazole (Omeprazole 40 Mg Capsule.Dr) 40 mg PO DAILY@0630 [facility] Last Admin: 02/12/23 05:35 Dose: 40 mg Ondansetron HCl (Ondansetron Hcl 4 Mg/2 Ml Vial) 4 mg IVPUSH Q8H PRN PRN Reason: Nausea and Vomiting Pharmacy Consult (Consult Rx Perform Med Rec) 1 each MISCELLANE ONCE PRN PRN Reason: Consult order Pharmacy Consult (Consult Rx Vancomycin Dosing) 1 each MISCELLANE DAILY PRN PRN Reason: Consult order Sodium Chloride (0.9 % Sodium Chloride Flush 3 Ml Syringe) 3 ml IVFLUSH QSHIFT [facility] Last Admin: 02/12/23 08:08 Dose: 3 ml Thiamine HCl (Thiamine Hcl 100 Mg Tablet) 100 mg PO DAILY [facility] Last Admin: 02/12/23 08:06 Dose: 100 mg Home Medications Medication Instructions Recorded Confirmed Last Taken Type apixaban 5 mg tablet (Eliquis) 5 mg PO BID 01/03/23 02/09/23 02/09/23 History cephalexin 500 mg capsule 500 mg PO Q8H 02/09/23 02/09/23 02/09/23 History Physical Exam Vital Signs: Vital Signs: Last Vital Signs Temp 98.1 F 02/12/23 07:43 Pulse 79 02/12/23 07:43 Resp 17 02/12/23 07:43 BP 120/63 02/12/23 07:43 Pulse Ox 99 02/12/23 07:43 O2 Del Method Room Air 02/12/23 07:43 BMI result Body Mass Index 22.8 Const: General: comfortable and no acute distress Orientation/consciousness: patient oriented x3 HEENT: Other: Unremarkable Head: Yes normal to inspection Neck: Neck: Yes normal visual inspection Chest: Chest palpation & inspection: normal inspection of the chest Resp: Auscultation: clear to auscultation bilaterally Cardio: Palpation: normal PMI Heart sounds: S1 normal heart sound present, S2 normal heart sound present, no gallops, no murmurs and no rubs GI: Palpation (GI): Soft to palpation Back/Spine/Pelvis: Other: unremarkable Skin: General skin exam: no rashes or lesions noted Neuro: General: patient oriented x3 Extrem: Other: Bilateral dressing in lower extremities. General: Yes normal to inspection Psych: Mental Status: mental status grossly normal Objective Labs and Meds 02/11/23 06:43 02/12/23 06:59 Lab results: Laboratory Results - last 24 hr 02/12/23 02/12/23 06:59 06:59 Creatinine 0.63 Estim Creat Clear Calc 112.2 Estimated GFR > 60 Random Vancomycin 12.6 L ECG Interpretation: No EKG available this admission. Last EKG from December shows atrial fibrillation with rapid rate at 147/Min as well as right bundle-branch block pattern. Assessment and Plan (1) Preoperative cardiovascular examination: Status: Acute (2) Cardiomyopathy: Status: Acute (3) Coronary artery disease: Qualifiers: Coronary Disease-Associated Artery/Lesion type: [place] artery [place] vs. transplanted heart: [place] heart Associated angina: without angina Qualified Code(s): I25.10 - Atherosclerotic heart disease of [place] coronary artery without angina pectoris Status: Acute (4) A-fib: Status: Acute (5) Non-healing wound of right lower extremity: Status: Acute (6) Non-healing wound of left lower extremity: Status: Acute (7) Bilateral leg ulcer: Status: Acute Plan Obtain EKG. Discussed with hospitalist. Last echocardiogram from 2021. That shows LVEF of 20 25% with wall motion abnormalities. Cardiac catheterization from last year shows mid LAD 90% stenosis. First diagonal 100% stenosis, chronic total occlusion. Collaterals noted. Circumflex with minimal irregularities. Proximal RCA with 50% stenosis and distal RCA shows 99% stenosis. He has had several episodes of atrial fibrillation rapid rate in the past but based on vital signs this seems controlled at this time. Get EKG. Overall, numerous cardiac and other comorbidities, bilateral nonhealing ulcers requiring amputations. His cardiac risks are not modifiable. If the surgery is medically indicated, may proceed as planned. Cardiac risks considered high. Discussed with . Time Spent With Patient Time: Total time managing care of this patient today ____ minutes. Procedures Date of Service Date of Service: 02/12/23
[2023-02-12 14:52] VITALS: BP 116/59; PULSE 80; RESP 16; TEMP 36.3; O2SAT 97
[2023-02-12 21:24] VITALS: BP 128/78; PULSE 104; RESP 20; TEMP 37.7; O2SAT 100
[2023-02-12] MEDS: vancomycin HCL 1,250 MG in 0.9 % Sodium Chloride 250 ML 166.6 MG IV (21:26)
[2023-02-12] MEDS: Atorvastatin Calcium 40 MG TABLET PO (21:26)
[2023-02-12] MEDS: Acetaminophen 325 MG TABLET 650 MG PO (21:37)
[2023-02-12] MEDS: HYDROmorphone HCl 2 MG TABLET PO (23:25)
[2023-02-12] MEDS: Melatonin 3 MG TABLET 6 MG PO (23:25)
[2023-02-12 23:33] VITALS: BP 124/70; PULSE 85; RESP 18; TEMP 36.1; O2SAT 96
[2023-02-13] MEDS: Morphine Sulfate 4 MG/ML CARTRIDGE IVPUSH (01:28)
[2023-02-13] MEDS: Omeprazole 40 MG CAPSULE.DR PO (04:15)
[2023-02-13] MEDS: HYDROmorphone HCl 1 MG/ML SYRINGE IVPUSH ×5 (04:16→21:11)
[2023-02-13 07:39] VITALS: BP 141/73; PULSE 55; RESP 18; TEMP 37.1; O2SAT 99
[2023-02-13 07:42] LABS: Estimated Glomerular Filt Rate > 60
[2023-02-13 07:49] LABS: Vancomycin Random 14.4 mcg/mL (15-20)
--- NOTE | 2023-02-13 07:56 | HE.PHANOTE ---
Vancomycin Dosing Level 14 today. Renal function is stable. Continue current regimen. Next level 02/14 @ 1900. Brianne FlowersD
--- NOTE | 2023-02-13 07:56 | HO.VASCPN ---
Subjective Subjective Date of Service: 02/13/23 Patient reports: no new complaints and still having pain Interval history: Patient seen and examined. No significant events over the past weekend. Still complaining of pain. Overall concerned about the entire situation. But willing to move forward. Physical Exam Vital Signs: Vital Signs: Last Vital Signs Temp 98.7 F 02/13/23 07:39 Pulse 55 02/13/23 07:39 Resp 18 02/13/23 07:39 BP 141/73 H 02/13/23 07:39 Pulse Ox 99 02/13/23 07:39 O2 Del Method Room Air 02/13/23 07:39 BMI result Body Mass Index 22.8 Const: General: cooperative, healthy appearing and no acute distress Orientation/consciousness: oriented to person, oriented to place and oriented to time HEENT: Head: Yes normal to inspection Neck: Carotids: no bruits Chest: Chest palpation & inspection: normal inspection of the chest Resp: Effort & Inspection: normal respiratory effort and able to speak in complete sentences Auscultation: clear to auscultation bilaterally Cardio: Rate: regular rate Heart sounds: S1 normal heart sound present and S2 normal heart sound present GI: Inspection: Yes normal to inspection Skin: Other: Significant bilateral lower extremity ulcers penetrating to tendon and bone., significant bilateral knee contractures General skin exam: no rashes or lesions noted Wounds: no wounds Neuro: General: oriented to person, oriented to place, oriented to time and CN's II-XI intact bilaterally Extrem: General: Yes normal to inspection, Yes full ROM and Yes no clubbing, cyanosis or edema Psych: Appearance: grossly normal and well kempt Speech and movement: Normal speech and movement present Affect: normal affect Progress Note: A&P Assessment and plan (1) Non-healing wound of right lower extremity: Status: Acute Assessment and Plan: In short patient has chronically nonhealing bilateral lower extremity ulcers with significant contractures. He does need bilateral lower extremity above knee amputations but due to his overall cardiac status will proceed with 1 at a time. The right leg is significantly worse. He will require a right above knee amputation. Risks benefits complications were discussed in detail with the patient. He agreed and would like to move forward. We will put him on the add on schedule for tomorrow. Thank you for allowing us to assist in his care. Time Spent With Patient Time: Total time managing care of this patient today ____ minutes. Procedures Date of Service Date of Service: 02/13/23 Quality Stroke Does the patient have a stroke diagnosis?: No VTE Prior VTE?: No VTE Risk Level:: Medical - moderate - high VTE Device Contraindication: Treatment Not Indicated VTE Drug Contraindication: Treatment Not Indicated
--- NOTE | 2023-02-13 08:17 | P.PNIM_ITS ---
Subjective Subjective Date of Service: 02/13/23 Interval History: pain ENT Ears, Nose, Mouth, and Throat: Reports Normal hearing present Neurologic Neurologic: Reports Normal hearing present Physical Exam Vital Signs: Vital Signs: Last Vital Signs Temp 98.7 F 02/13/23 07:39 Pulse 55 02/13/23 07:39 Resp 18 02/13/23 07:39 BP 141/73 H 02/13/23 07:39 Pulse Ox 99 02/13/23 07:39 O2 Del Method Room Air 02/13/23 07:39 BMI result Body Mass Index 22.8 Const: General: cooperative, healthy appearing and no acute distress Orientation/consciousness: oriented to person, oriented to place and oriented to time HEENT: Head: Yes normal to inspection Neck: Carotids: no bruits Chest: Chest palpation & inspection: normal inspection of the chest Resp: Effort & Inspection: normal respiratory effort and able to speak in complete sentences Auscultation: clear to auscultation bilaterally Cardio: Rate: regular rate Heart sounds: S1 normal heart sound present and S2 normal heart sound present GI: Inspection: Yes normal to inspection Skin: Other: Significant bilateral lower extremity ulcers penetrating to tendon and bone., significant bilateral knee contractures General skin exam: no rashes or lesions noted Wounds: no wounds Neuro: General: oriented to person, oriented to place, oriented to time and CN's II-XI intact bilaterally Cranial nerves: Yes Normal hearing present Extrem: General: Yes normal to inspection, Yes full ROM and Yes no clubbing, cyanosis or edema Psych: Appearance: grossly normal and well kempt Speech and movement: Normal speech and movement present Affect: normal affect Objective Data Active Medications Acetaminophen (Acetaminophen 325 Mg Tablet) 650 mg PO Q6H PRN PRN Reason: Pain, Mild (Pain Scale 1-3) Last Admin: 02/12/23 21:37 Dose: 650 mg Documented By: MERLINE Amiodarone HCl (Amiodarone Hcl 200 Mg Tablet) 200 mg PO DAILY [facility] Last Admin: 02/12/23 08:05 Dose: 200 mg Documented By: GRAZLALA Atorvastatin Calcium (Atorvastatin Calcium 40 Mg Tablet) 40 mg PO BEDTIME [facility] Last Admin: 02/12/23 21:26 Dose: 40 mg Documented By: MERLINE Digoxin (Digoxin 0.125 Mg Tablet) 0.125 mg PO DAILY [facility] Last Admin: 02/12/23 08:06 Dose: 0.125 mg Documented By: COLEEN Enoxaparin Sodium (Enoxaparin Sodium 40 Mg/0.4 Ml Syringe) 40 mg SUBCUT Q24H [facility] Last Admin: 02/12/23 10:35 Dose: 40 mg Documented By: COLEEN Folic Acid (Folic Acid 1 Mg Tablet) 1 mg PO DAILY [facility] Last Admin: 02/12/23 08:05 Dose: 1 mg Documented By: COLEEN Furosemide (Furosemide 20 Mg Tablet) 20 mg PO DAILY [facility]; Protocol Last Admin: 02/12/23 08:05 Dose: 20 mg Documented By: COLEEN Hydromorphone HCl (Hydromorphone Hcl 1 Mg/Ml Syringe) 1 mg IVPUSH Q4H PRN; Protocol PRN Reason: moderate pain Last Admin: 02/13/23 04:16 Dose: 1 mg Documented By: MERLINE Cefepime HCl 2 gm/ Sodium (Chloride) 50 mls @ 100 mls/hr IV Q8H [facility] Last Infusion: 02/13/23 00:14 Dose: 0 mls/hr Documented By: MERLINE Vancomycin HCl 1,250 mg/ (Sodium Chloride) 250 mls @ 166.667 mls/hr IV Q12H [facility] Last Infusion: 02/12/23 23:32 Dose: 0 mls/hr Documented By: MERLINE Magnesium Oxide (Magnesium Oxide 400 Mg Tablet) 400 mg PO BIDPC [facility] Last Admin: 02/12/23 16:50 Dose: 400 mg Documented By: COLEEN Melatonin (Melatonin 3 Mg Tablet) 6 mg PO BEDTIME PRN PRN Reason: Insomnia Last Admin: 02/12/23 23:25 Dose: 6 mg Documented By: MERLINE Metoprolol Tartrate (Metoprolol Tartrate 100 Mg Tablet) 100 mg PO BID [facility]; Protocol Last Admin: 02/12/23 21:26 Dose: 100 mg Documented By: MERLINE Omeprazole (Omeprazole 40 Mg Capsule.Dr) 40 mg PO DAILY@0630 [facility] Last Admin: 02/13/23 04:15 Dose: 40 mg Documented By: MERLINE Ondansetron HCl (Ondansetron Hcl 4 Mg/2 Ml Vial) 4 mg IVPUSH Q8H PRN PRN Reason: Nausea and Vomiting Pharmacy Consult (Consult Rx Perform Med Rec) 1 each MISCELLANE ONCE PRN PRN Reason: Consult order Pharmacy Consult (Consult Rx Vancomycin Dosing) 1 each MISCELLANE DAILY PRN PRN Reason: Consult order Sodium Chloride (0.9 % Sodium Chloride Flush 3 Ml Syringe) 3 ml IVFLUSH QSHIFT [facility] Last Admin: 02/12/23 23:34 Dose: Not Given Documented By: MERLINE Non-Admin Reason: IV Running Thiamine HCl (Thiamine Hcl 100 Mg Tablet) 100 mg PO DAILY [facility] Last Admin: 02/12/23 08:06 Dose: 100 mg Documented By: COLEEN Labs 02/11/23 06:43 02/13/23 07:20 Labs: Laboratory Results - last 24 hr 02/13/23 02/13/23 07:20 07:20 Estim Creat Clear Calc 114.0 Estimated GFR > 60 Random Vancomycin 14.4 L Assessment and Plan (1) Non-healing wound of right lower extremity: Status: Acute (2) Non-healing wound of left lower extremity: Status: Acute Plan 62M PMH ischemic cardiomypathy, chornic afib, PVD, chronic lower extremity burn wounds, copd, htn, presented with wound pain non healing burn wounds of bilateral lower extremities with possible superimposed cellulitis continue empiric vanc, cefepime plan for eventual bilateral AKA, (one at a time) with dr Azul, add on for tomorrow patient is high risk and likely unmodifiable cardio for periop optimization chronic afib with rvr amio, dig, lopressor eliquis on hold for surgery chronic systolic chf/ CAD - triple vessel disease statin, beta miguel a copd stable dvt prophylaxis - lovenox full code reason for continued hospitalization: plan for AKA Time Spent With Patient Time: Total time managing care of this patient today ____ minutes. Quality Stroke Does the patient have a stroke diagnosis?: No VTE Prior VTE?: No VTE Risk Level:: Medical - moderate - high VTE Device Contraindication: Treatment Not Indicated VTE Drug Contraindication: Treatment Not Indicated
[2023-02-13] MEDS: cefEPime HCl 2 GM in 0.9 % Sodium Chloride 50 ML IV ×2 (08:37→15:51)
[2023-02-13] MEDS: Digoxin 0.125 MG TABLET PO (08:37)
[2023-02-13] MEDS: Metoprolol Tartrate 100 MG TABLET PO ×2 (08:38→21:11)
[2023-02-13] MEDS: Thiamine HCL 100 MG TABLET PO (08:38)
[2023-02-13] MEDS: Amiodarone HCL 200 MG TABLET PO (08:38)
[2023-02-13] MEDS: Folic Acid 1 MG TABLET PO (08:38)
[2023-02-13] MEDS: Furosemide 20 MG TABLET PO (08:38)
[2023-02-13] MEDS: Magnesium Oxide 400 MG TABLET PO ×2 (08:38→16:45)
[2023-02-13] MEDS: 0.9 % Sodium Chloride Flush 3 ML SYRINGE IVFLUSH ×2 (08:39→15:58)
[2023-02-13] MEDS: Enoxaparin Sodium 40 MG/0.4 ML SYRINGE SUBCUT (09:33)
[2023-02-13] MEDS: vancomycin HCL 1,250 MG in 0.9 % Sodium Chloride 250 ML 166.67 MG IV ×2 (09:34→21:12)
[2023-02-13] MEDS: oxyCODONE HCl Immed Release 5 MG TABLET PO (11:02)
[2023-02-13] MEDS: oxyCODONE HCl Immed Release 5 MG TABLET 10 MG PO ×2 (11:36→14:43)
[2023-02-13] MEDS: Acetaminophen 325 MG TABLET 650 MG PO (14:43)
[2023-02-13 15:23] VITALS: BP 147/81; PULSE 78; RESP 18; TEMP 36.9; O2SAT 97
--- NOTE | 2023-02-13 19:24 | PC.NURSE ---
Pt requested L leg dressing change. Wounds found to have small-medium serosanguineous drainage and slightly foul odor, Wounds redressed with xeroform gauze, abd pads, and wrapped with kerlix gauze.
[2023-02-13] MEDS: Atorvastatin Calcium 40 MG TABLET PO (21:11)
[2023-02-13 23:39] VITALS: BP 142/72; PULSE 61; RESP 18; TEMP 36.6; O2SAT 99
[2023-02-14] VITALS (12 sets, daily range): BP systolic 99–150; BP diastolic 57–90; PULSE 60–100; RESP 12–20; TEMP 36–36.9; O2SAT 98–100
[2023-02-14] MEDS: HYDROmorphone HCl 1 MG/ML SYRINGE IVPUSH ×5 (01:12→21:34)
[2023-02-14] MEDS: cefEPime HCl 2 GM in 0.9 % Sodium Chloride 50 ML IV ×4 (01:14→23:33)
[2023-02-14] MEDS: Omeprazole 40 MG CAPSULE.DR PO (05:34)
[2023-02-14 06:50] LABS: Creatinine Clr Calc Pharmacy 117.8; Estimated Glomerular Filt Rate > 60
[2023-02-14] MEDS: Folic Acid 1 MG TABLET PO (07:36)
[2023-02-14] MEDS: Magnesium Oxide 400 MG TABLET PO ×2 (07:36→17:29)
[2023-02-14] MEDS: Thiamine HCL 100 MG TABLET PO (07:36)
[2023-02-14] MEDS: Furosemide 20 MG TABLET PO (07:36)
[2023-02-14] MEDS: 0.9 % Sodium Chloride Flush 3 ML SYRINGE IVFLUSH ×3 (07:36→23:33)
[2023-02-14] MEDS: Amiodarone HCL 200 MG TABLET PO (07:36)
[2023-02-14] MEDS: Metoprolol Tartrate 100 MG TABLET PO ×2 (07:36→20:36)
[2023-02-14] MEDS: Digoxin 0.125 MG TABLET PO (07:37)
[2023-02-14] MEDS: vancomycin HCL 1,250 MG in 0.9 % Sodium Chloride 250 ML 166.67 MG IV (08:22)
--- NOTE | 2023-02-14 09:11 | P.PNIM_ITS ---
Subjective Subjective Date of Service: 02/14/23 Interval History: pain ENT Ears, Nose, Mouth, and Throat: Reports Normal hearing present Neurologic Neurologic: Reports Normal hearing present Physical Exam Vital Signs: Vital Signs: Last Vital Signs Temp 97 F 02/14/23 06:57 Pulse 88 02/14/23 06:57 Resp 18 02/14/23 06:57 BP 150/90 H 02/14/23 06:57 Pulse Ox 99 02/14/23 06:57 O2 Del Method Room Air 02/14/23 06:57 BMI result Body Mass Index 22.8 Const: General: cooperative, healthy appearing and no acute distress Orientation/consciousness: oriented to person, oriented to place and oriented to time HEENT: Head: Yes normal to inspection Neck: Carotids: no bruits Chest: Chest palpation & inspection: normal inspection of the chest Resp: Effort & Inspection: normal respiratory effort and able to speak in complete sentences Auscultation: clear to auscultation bilaterally Cardio: Rate: regular rate Heart sounds: S1 normal heart sound present and S2 normal heart sound present GI: Inspection: Yes normal to inspection Skin: Other: Significant bilateral lower extremity ulcers penetrating to tendon and bone., significant bilateral knee contractures General skin exam: no rashes or lesions noted Wounds: no wounds Neuro: General: oriented to person, oriented to place, oriented to time and CN's II-XI intact bilaterally Cranial nerves: Yes Normal hearing present Extrem: General: Yes normal to inspection, Yes full ROM and Yes no clubbing, cyanosis or edema Psych: Appearance: grossly normal and well kempt Speech and movement: Normal speech and movement present Affect: normal affect Objective Data Active Medications Acetaminophen (Acetaminophen 325 Mg Tablet) 650 mg PO Q6H PRN PRN Reason: Pain, Mild (Pain Scale 1-3) Last Admin: 02/13/23 14:43 Dose: 650 mg Documented By: KIRSTIN Amiodarone HCl (Amiodarone Hcl 200 Mg Tablet) 200 mg PO DAILY [facility] Last Admin: 02/14/23 07:36 Dose: 200 mg Documented By: ROSEMARIE Atorvastatin Calcium (Atorvastatin Calcium 40 Mg Tablet) 40 mg PO BEDTIME [facility] Last Admin: 02/13/23 21:11 Dose: 40 mg Documented By: TUNDE Digoxin (Digoxin 0.125 Mg Tablet) 0.125 mg PO DAILY [facility] Last Admin: 02/14/23 07:37 Dose: 0.125 mg Documented By: ROSEMARIE Enoxaparin Sodium (Enoxaparin Sodium 40 Mg/0.4 Ml Syringe) 40 mg SUBCUT Q24H [facility] Last Admin: 02/13/23 09:33 Dose: 40 mg Documented By: ALFREDA Folic Acid (Folic Acid 1 Mg Tablet) 1 mg PO DAILY [facility] Last Admin: 02/14/23 07:36 Dose: 1 mg Documented By: ROSEMARIE Furosemide (Furosemide 20 Mg Tablet) 20 mg PO DAILY [facility]; Protocol Last Admin: 02/14/23 07:36 Dose: 20 mg Documented By: ROSEMARIE Hydromorphone HCl (Hydromorphone Hcl 1 Mg/Ml Syringe) 1 mg IVPUSH Q4H PRN; Protocol PRN Reason: moderate pain Last Admin: 02/14/23 05:34 Dose: 1 mg Documented By: TUNDE Cefepime HCl 2 gm/ Sodium (Chloride) 50 mls @ 100 mls/hr IV Q8H [facility] Last Infusion: 02/14/23 08:19 Dose: 0 mls/hr Documented By: ROSEMARIE Vancomycin HCl 1,250 mg/ (Sodium Chloride) 250 mls @ 166.667 mls/hr IV Q12H [facility] Last Admin: 02/14/23 08:22 Dose: 166.67 mls/hr Documented By: ROSEMARIE Magnesium Oxide (Magnesium Oxide 400 Mg Tablet) 400 mg PO BIDPC [facility] Last Admin: 02/14/23 07:36 Dose: 400 mg Documented By: ROSEMARIE Melatonin (Melatonin 3 Mg Tablet) 6 mg PO BEDTIME PRN PRN Reason: Insomnia Last Admin: 02/12/23 23:25 Dose: 6 mg Documented By: MERLINE Metoprolol Tartrate (Metoprolol Tartrate 100 Mg Tablet) 100 mg PO BID [facility]; Protocol Last Admin: 02/14/23 07:36 Dose: 100 mg Documented By: ROSEMARIE Omeprazole (Omeprazole 40 Mg Capsule.) 40 mg PO DAILY@0630 [facility] Last Admin: 02/14/23 05:34 Dose: 40 mg Documented By: TUNDE Ondansetron HCl (Ondansetron Hcl 4 Mg/2 Ml Vial) 4 mg IVPUSH Q8H PRN PRN Reason: Nausea and Vomiting Oxycodone HCl (Oxycodone Hcl Immed Release 5 Mg Tablet) 10 mg PO Q4H PRN PRN Reason: moderate pain Last Admin: 02/13/23 14:43 Dose: 10 mg Documented By: KIRSTIN Pharmacy Consult (Consult Rx Perform Med Rec) 1 each MISCELLANE ONCE PRN PRN Reason: Consult order Pharmacy Consult (Consult Rx Vancomycin Dosing) 1 each MISCELLANE DAILY PRN PRN Reason: Consult order Sodium Chloride (0.9 % Sodium Chloride Flush 3 Ml Syringe) 3 ml IVFLUSH QSHIFT [facility] Last Admin: 02/14/23 07:36 Dose: 3 ml Documented By: ROSEMARIE Thiamine HCl (Thiamine Hcl 100 Mg Tablet) 100 mg PO DAILY [facility] Last Admin: 02/14/23 07:36 Dose: 100 mg Documented By: ROSEMARIE Labs 02/11/23 06:43 02/14/23 05:19 Labs: Laboratory Results - last 24 hr 02/14/23 05:19 Estim Creat Clear Calc 117.8 Estimated GFR > 60 Assessment and Plan (1) Non-healing wound of right lower extremity: Status: Acute (2) Non-healing wound of left lower extremity: Status: Acute Plan 62M PMH ischemic cardiomypathy, chornic afib, PVD, chronic lower extremity burn wounds, copd, htn, presented with wound pain non healing burn wounds of bilateral lower extremities with possible superimposed cellulitis continue empiric vanc, cefepime plan for eventual bilateral AKA, (one at a time) with dr Azul patient is high risk and likely unmodifiable plan for OR today chronic afib with rvr amio, dig, lopressor eliquis on hold for surgery chronic systolic chf/ CAD - triple vessel disease statin, beta miguel a copd stable dvt prophylaxis - lovenox full code reason for continued hospitalization: plan for AKA Time Spent With Patient Time: Total time managing care of this patient today ____ minutes. Quality Stroke Does the patient have a stroke diagnosis?: No VTE Prior VTE?: No VTE Risk Level:: Medical - moderate - high VTE Device Contraindication: Treatment Not Indicated VTE Drug Contraindication: Treatment Not Indicated
--- NOTE | 2023-02-14 12:19 | HO.ANESPROP2 ---
FORM[facility]LY [facility] Active Problems Active Problems: All Active Problems (Updated 02/12/23 @ 11:22 by Reyes Anderson MD) Hypomagnesemia (Acute) Acidosis, lactic (Acute) Pleural effusion (Acute) Atrial fibrillation with rapid ventricular response (Acute) Acute congestive heart failure (Acute) Acute on chronic systolic (congestive) heart failure (Acute) Physical deconditioning (Acute) Hyponatremia (Acute) Physical exam (Acute) Screening PSA (prostate specific antigen) (Acute) Scrotal sac enlargement (Acute) PAD (peripheral artery disease) (Acute) Abnormal nuclear cardiac imaging test (Acute) Bilateral hydrocele (Acute) Ischemic cardiomyopathy (Acute) Heart failure with reduced ejection fraction (Acute) Burn of hand (Acute) Low blood magnesium level (Acute) Acute on chronic anemia (Acute) Atrial fibrillation with RVR (Acute) Burn of lower extremity (Acute) Bilateral leg ulcer (Acute) Elevated TSH (Acute) Wounds, multiple open, arm (Acute) Non-healing wound of right lower extremity (Acute) Non-healing wound of left lower extremity (Acute) Preoperative cardiovascular examination (Acute) Cardiomyopathy (Acute) Coronary artery disease (Acute) Anemia (Acute) A-fib (Acute) Claudication of both lower extremities (Acute) Past Medical History Medical History (Updated 02/12/23 @ 11:22 by Reyes Anderson MD) A-fib Alcohol abuse Alcohol dependence Anemia Anemia Apical mural thrombus Atrial fibrillation Burn erythema of right lower extremity Burn of left lower extremity Cardiomyopathy CHF (congestive heart failure) Claudication of both lower extremities Complicated wound infection COPD (chronic obstructive pulmonary disease) COPD (chronic obstructive pulmonary disease) COPD exacerbation Coronary artery disease Hernia History of alcohol abuse HTN (hypertension) Family History Family History Mother Hx of CABG Family history of problems with anesthesia: No Surgical History Surgical History (Updated 02/14/23 @ 11:05 by Lata Neil) H/O hernia repair H/O left knee surgery H/O skin graft History of cardiac cath Status post cardiac catheterization History of Problems with Anesthesia: No Social History Social History Household Members: Other Household Members Other:: none Housing: Apartment Housing Other:: Living with sister. Do you presently have visiting nurse or other home services: Yes Unable to assess alcohol history related to: Unknown Alcohol intake: former Year quit: 2020 Patient Tobacco Use Status: Current everyday Tobacco user Tobacco use type: Cigar Cigarette Packs Per Day: 0.5 Cigarettes Per Day: 10.0 Years Smoked: 25 e-Cigarette/Vaping Use: Never Used Second Hand Smoke Exposure: Yes Substance Use Type: Marijuana Advance Directives Date on File: 11/25/22 service: No Current occupational status: retired Cognitive needs: No Hearing needs: No Vision needs: No Meds Allergies Allergy/AdvReac Type Severity Reaction Status Date / Time bee pollen [BEE STINGS] Allergy Severe SWELLING Verified 02/14/23 11:06 Active Medications: Current Medications Acetaminophen (Acetaminophen 325 Mg Tablet) 650 mg PO Q6H PRN PRN Reason: Pain, Mild (Pain Scale 1-3) Last Admin: 02/13/23 14:43 Dose: 650 mg Amiodarone HCl (Amiodarone Hcl 200 Mg Tablet) 200 mg PO DAILY [facility] Last Admin: 02/14/23 07:36 Dose: 200 mg Atorvastatin Calcium (Atorvastatin Calcium 40 Mg Tablet) 40 mg PO BEDTIME [facility] Last Admin: 02/13/23 21:11 Dose: 40 mg Digoxin (Digoxin 0.125 Mg Tablet) 0.125 mg PO DAILY [facility] Last Admin: 02/14/23 07:37 Dose: 0.125 mg Enoxaparin Sodium (Enoxaparin Sodium 40 Mg/0.4 Ml Syringe) 40 mg SUBCUT Q24H [facility] Last Admin: 02/14/23 10:15 Dose: Not Given Folic Acid (Folic Acid 1 Mg Tablet) 1 mg PO DAILY [facility] Last Admin: 02/14/23 07:36 Dose: 1 mg Furosemide (Furosemide 20 Mg Tablet) 20 mg PO DAILY [facility]; Protocol Last Admin: 02/14/23 07:36 Dose: 20 mg Hydromorphone HCl (Hydromorphone Hcl 1 Mg/Ml Syringe) 1 mg IVPUSH Q4H PRN; Protocol PRN Reason: moderate pain Last Admin: 02/14/23 10:15 Dose: 1 mg Cefepime HCl 2 gm/ Sodium (Chloride) 50 mls @ 100 mls/hr IV Q8H [facility] Last Infusion: 02/14/23 08:19 Dose: Infused Vancomycin HCl 1,250 mg/ (Sodium Chloride) 250 mls @ 166.667 mls/hr IV Q12H [facility] Last Infusion: 02/14/23 09:56 Dose: Infused Magnesium Oxide (Magnesium Oxide 400 Mg Tablet) 400 mg PO BIDPC [facility] Last Admin: 02/14/23 07:36 Dose: 400 mg Melatonin (Melatonin 3 Mg Tablet) 6 mg PO BEDTIME PRN PRN Reason: Insomnia Last Admin: 02/12/23 23:25 Dose: 6 mg Metoprolol Tartrate (Metoprolol Tartrate 100 Mg Tablet) 100 mg PO BID [facility]; Protocol Last Admin: 02/14/23 07:36 Dose: 100 mg Omeprazole (Omeprazole 40 Mg Capsule.Dr) 40 mg PO DAILY@0630 [facility] Last Admin: 02/14/23 05:34 Dose: 40 mg Ondansetron HCl (Ondansetron Hcl 4 Mg/2 Ml Vial) 4 mg IVPUSH Q8H PRN PRN Reason: Nausea and Vomiting Oxycodone HCl (Oxycodone Hcl Immed Release 5 Mg Tablet) 10 mg PO Q4H PRN PRN Reason: moderate pain Last Admin: 02/13/23 14:43 Dose: 10 mg Pharmacy Consult (Consult Rx Perform Med Rec) 1 each MISCELLANE ONCE PRN PRN Reason: Consult order Pharmacy Consult (Consult Rx Vancomycin Dosing) 1 each MISCELLANE DAILY PRN PRN Reason: Consult order Sodium Chloride (0.9 % Sodium Chloride Flush 3 Ml Syringe) 3 ml IVFLUSH QSHIFT [facility] Last Admin: 02/14/23 07:36 Dose: 3 ml Thiamine HCl (Thiamine Hcl 100 Mg Tablet) 100 mg PO DAILY [facility] Last Admin: 02/14/23 07:36 Dose: 100 mg Home Medications Medication Instructions Recorded Confirmed Last Taken Type apixaban 5 mg tablet (Eliquis) 5 mg PO BID 01/03/23 02/09/23 02/09/23 History cephalexin 500 mg capsule 500 mg PO Q8H 02/09/23 02/09/23 02/09/23 History Exam Exam Date and Time: February 14, 2023 1219 Height,Weight and Vital Signs: Height 5 ft 7 in Weight 66.1 kg Last Vital Signs Temp 98.3 F 02/14/23 11:25 Pulse 63 02/14/23 11:25 Resp 16 02/14/23 11:25 BP 120/71 02/14/23 11:25 Pulse Ox 98 02/14/23 11:25 O2 Del Method Room Air 02/14/23 11:25 Pertinent Lab Results Pertinent Lab Results: Laboratory Tests 02/09/23 02/09/23 02/09/23 19:27 19:27 19:27 WBC 11.6 H RBC 3.84 L Hgb 9.4 L Hct 30.8 L MCV 80.2 MCH 24.5 L MCHC 30.5 L RDW 20.7 H Plt Count 465 H MPV 8.0 L Immature Gran % (Auto) 0.7 H Neut % (Auto) 76.1 H Lymph % (Auto) 14.4 L [place] % (Auto) 6.7 Eos % (Auto) 1.1 Baso % (Auto) 1.0 Lymph # (Auto) 1.7 [place] # (Auto) 0.8 Eos # (Auto) 0.1 Baso # (Auto) 0.1 Abs Immat Gran (auto) 0.08 H Absolute Neuts (auto) 8.8 H Absolute Nucleated RBC 0.000 Nucleated RBC % (auto) 0.0 ESR 80 H Sodium 137 Potassium 4.7 D Chloride 106 Carbon Dioxide 19 L Anion Gap 17 BUN 16 Creatinine 0.64 Estim Creat Clear Calc 109.9 Estimated GFR > 60 Random Glucose 67 Fasting Glucose Lactic Acid Lactic Acid F/U @ 2Hr Calcium 8.6 Magnesium 1.8 Total Bilirubin 0.5 AST 9 ALT < 5 Alkaline Phosphatase 80 C-Reactive Protein 11.48 H Total Protein 6.7 Albumin 3.1 L Random Vancomycin COVID-19 (JAMAR) COVID-19 Clin Com Blood Type Antibody Screen 02/09/23 02/09/23 02/09/23 19:27 19:27 22:15 WBC RBC Hgb Hct MCV MCH MCHC RDW Plt Count MPV Immature Gran % (Auto) Neut % (Auto) Lymph % (Auto) [place] % (Auto) Eos % (Auto) Baso % (Auto) Lymph # (Auto) [place] # (Auto) Eos # (Auto) Baso # (Auto) Abs Immat Gran (auto) Absolute Neuts (auto) Absolute Nucleated RBC Nucleated RBC % (auto) ESR Sodium Potassium Chloride Carbon Dioxide Anion Gap BUN Creatinine Estim Creat Clear Calc Estimated GFR Random Glucose Fasting Glucose Lactic Acid 2.1 H* Lactic Acid F/U @ 2Hr 1.8 Calcium Magnesium Total Bilirubin AST ALT Alkaline Phosphatase C-Reactive Protein Total Protein Albumin Random Vancomycin COVID-19 (JAMAR) Negative COVID-19 Clin Com See Note Blood Type Antibody Screen 02/10/23 02/10/23 02/11/23 06:08 06:08 06:43 WBC 13.4 H RBC 3.80 L Hgb 9.2 L Hct 31.0 L MCV 81.6 MCH 24.2 L MCHC 29.7 L RDW 21.0 H Plt Count 411 H MPV 8.0 L Immature Gran % (Auto) 0.7 H Neut % (Auto) 84.9 H Lymph % (Auto) 7.0 L [place] % (Auto) 6.5 Eos % (Auto) 0.4 Baso % (Auto) 0.5 Lymph # (Auto) 0.9 L [place] # (Auto) 0.9 Eos # (Auto) 0.1 Baso # (Auto) 0.1 Abs Immat Gran (auto) 0.09 H Absolute Neuts (auto) 11.4 H Absolute Nucleated RBC 0.000 Nucleated RBC % (auto) 0.0 ESR Sodium 134 L Potassium 4.1 Chloride 106 Carbon Dioxide 21 L Anion Gap 11 L BUN 9 Creatinine 0.62 Estim Creat Clear Calc 113.4 Estimated GFR > 60 Random Glucose 72 Fasting Glucose Lactic Acid Lactic Acid F/U @ 2Hr Calcium 8.1 L Magnesium Total Bilirubin AST ALT Alkaline Phosphatase C-Reactive Protein Total Protein Albumin Random Vancomycin 12.2 L COVID-19 (JAMAR) COVID-19 Clin Com Blood Type Antibody Screen 02/11/23 02/11/23 02/12/23 06:43 06:43 06:59 WBC 11.7 H RBC 3.78 L Hgb 9.0 L Hct 30.6 L MCV 81.0 MCH 23.8 L MCHC 29.4 L RDW 20.3 H Plt Count 363 MPV 8.0 L Immature Gran % (Auto) Neut % (Auto) Lymph % (Auto) [place] % (Auto) Eos % (Auto) Baso % (Auto) Lymph # (Auto) [place] # (Auto) Eos # (Auto) Baso # (Auto) Abs Immat Gran (auto) Absolute Neuts (auto) Absolute Nucleated RBC 0.000 Nucleated RBC % (auto) 0.0 ESR Sodium 131 L Potassium 3.9 Chloride 101 Carbon Dioxide 22 Anion Gap 12 BUN 10 Creatinine 0.68 0.63 Estim Creat Clear Calc 103.9 112.2 Estimated GFR > 60 > 60 Random Glucose Fasting Glucose 102 H Lactic Acid Lactic Acid F/U @ 2Hr Calcium 8.4 Magnesium Total Bilirubin AST ALT Alkaline Phosphatase C-Reactive Protein Total Protein Albumin Random Vancomycin COVID-19 (JAMAR) COVID-[facility] Blood Type Antibody Screen 02/12/23 02/13/23 02/13/23 06:59 07:20 07:20 WBC RBC Hgb Hct MCV MCH MCHC RDW Plt Count MPV Immature Gran % (Auto) Neut % (Auto) Lymph % (Auto) [place] % (Auto) Eos % (Auto) Baso % (Auto) Lymph # (Auto) [place] # (Auto) Eos # (Auto) Baso # (Auto) Abs Immat Gran (auto) Absolute Neuts (auto) Absolute Nucleated RBC Nucleated RBC % (auto) ESR Sodium Potassium Chloride Carbon Dioxide Anion Gap BUN Creatinine 0.62 Estim Creat Clear Calc 114.0 Estimated GFR > 60 Random Glucose Fasting Glucose Lactic Acid Lactic Acid F/U @ 2Hr Calcium Magnesium Total Bilirubin AST ALT Alkaline Phosphatase C-Reactive Protein Total Protein Albumin Random Vancomycin 12.6 L 14.4 L COVID-19 (JAMAR) COVID-[facility] Blood Type Antibody Screen 02/13/23 02/14/23 08:05 05:19 WBC RBC Hgb Hct MCV MCH MCHC RDW Plt Count MPV Immature Gran % (Auto) Neut % (Auto) Lymph % (Auto) [place] % (Auto) Eos % (Auto) Baso % (Auto) Lymph # (Auto) [place] # (Auto) Eos # (Auto) Baso # (Auto) Abs Immat Gran (auto) Absolute Neuts (auto) Absolute Nucleated RBC Nucleated RBC % (auto) ESR Sodium Potassium Chloride Carbon Dioxide Anion Gap BUN Creatinine 0.60 Estim Creat Clear Calc 117.8 Estimated GFR > 60 Random Glucose Fasting Glucose Lactic Acid Lactic Acid F/U @ 2Hr Calcium Magnesium Total Bilirubin AST ALT Alkaline Phosphatase C-Reactive Protein Total Protein Albumin Random Vancomycin COVID-19 (JAMAR) COVID-[facility] Blood Type O Positive Antibody Screen NEGATIVE Airway Mallampati Class: II TM Dist: >3cm Neck ROM: Full Loose/Missing/Broken Teeth: Upper and Lower Lungs: mild wheeze Assessment and Plan Assessment Anesthesia Assessment: Anesthesia Plan Discussed, Smoking Cess. Discussed and Chart Reviewed Final Anesthetic Review Family History of Problems with Anesthesia: No History of Problems with Anesthesia: No NPO: Yes ASA Class: III and Emergency Final Preanesthetic Review: No Changes in Pt Med Stat, Meds/Allgs Chart Reviewed, Consent Obtained/Reviewed and Anes Risks/Benef Reviewed Patient Risk: Intermediate Procedure Risk: Intermediate Anesthetic Plan Anesthetic Plan: GA Disposition: Standard PACU
--- NOTE | 2023-02-14 14:11 | MHC.SHP ---
Pre-Procedural Eval Section A Date of Service: 02/14/23 The patient is an INPATIENT: Yes Changes since office visit: Yes Patient answered all questions The History & Physical has been completed within 30 days and I have reviewed it.: Yes Section B Chief Complaint: Leg infection Allergies: Allergies Allergy/AdvReac Type Severity Reaction Status Date / Time bee pollen [BEE STINGS] Allergy Severe SWELLING Verified 02/14/23 11:06 Plan I have reviewed the history and physical and performed a pertinent physical examination on my patient. No changes have occurred unless specified. Time Spent With Patient Time: Total time managing care of this patient today ____ minutes.
--- NOTE | 2023-02-14 14:12 | W.PM.OPN ---
Operative Note Operative Note Date of Service: 02/14/23 Narrative: Operative note by [facility] Preoperative diagnosis: 1. Ischemic right lower extremity 2. Burn ulcers Postoperative diagnosis: Same Procedure: 1. Right above knee amputation 2. Myodesis Surgeon:Tez Azul M.D. [employer] Machine: Nora Anesthesia: General Specimens: One Drains: None Estimated blood loss:100 ml Indications: 62-year-old gentleman with prior nonhealing wounds of right lower extremity and burn wounds presents for above knee amputation. Of note he does have significant contractures as well. The patient has signed the informed consent after reviewing risks, complications, benefits, and alternatives previously discussed with the patient. The patient was given the opportunity to ask any additional questions or voice any concerns. All questions were answered to the patient's satisfaction. Procedure in detail: The patient was brought to the operating room prior to which a time-out was called for patient identification and site verification. The patient was placed in a supine position. The right lower extremity was prepped and draped in the standard surgical fashion. The intended incision site was marked. The anterior aspect of the incision was made approximately 10 cm above the knee. The incision was carried through the fascia. The anterior compartment muscles were divided using electrocautery dissection. The femur cleared. Periosteal elevator was used to clear the periosteum from the femur. The femur was transected with a power reciprocating saw. Once this was transected the posterior flap was created with electrocautery. Specimen was removed. Once this was all accomplished we filed down the anterior aspect of the bone . We then performed a myodesis. In the femur using a drill holes were then created. Using 2-0 Polysorb the muscle was then buttressed to the femur. The wound was then closed using 2 0 poly Sorb. This was used to bring together the fascia from the posterior flap to the anterior cut. We then reapproximated the superficial layer with 3-0 poly Sorb suture. Finally skin was closed using 2 0 nylon in a mattress fashion. In addition we used skin clips. The stump was then room wrapped with Xeroform Kerlix and an Luis Miguel wrap. The patient tolerated the procedure well. Brought to recovery with stable vitals. At the end the case sponge needle instrument counts were correct x2. This note is constructed using voice recognition software. While every effort has been made to ensure accuracy, ad trafficker errors may have been included. Thank you for allowing me to participate in the care of your patient. Yours sincerely, Tez Azul MD, FACS, R.P.V.I.
[2023-02-14] MEDS: oxyCODONE HCl Immed Release 5 MG TABLET 10 MG PO ×2 (14:25→23:32)
--- NOTE | 2023-02-14 19:16 | PC.NURSE ---
Pt refused to let this RN change left leg wound, pt educated on importance of wound care changes. Will continue with plan of care.
[2023-02-14 19:57] LABS: Vancomycin Trough 12.9 mcg/mL (10.0-20.0)
--- NOTE | 2023-02-14 20:20 | PC.NURSE ---
Patient refused to have a drsg change done on left leg
[2023-02-14] MEDS: Atorvastatin Calcium 40 MG TABLET PO (20:28)
[2023-02-14] MEDS: Acetaminophen 325 MG TABLET 650 MG PO (20:28)
[2023-02-14] MEDS: vancomycin HCL 1,250 MG in 0.9 % Sodium Chloride 250 ML 166.66 MG IV (20:28)
[2023-02-15] MEDS: HYDROmorphone HCl 1 MG/ML SYRINGE IVPUSH ×6 (01:27→22:29)
[2023-02-15 03:19] VITALS: BP 134/71; PULSE 78; RESP 16; TEMP 36.1; O2SAT 100
[2023-02-15] MEDS: oxyCODONE HCl Immed Release 5 MG TABLET 10 MG PO (03:24)
[2023-02-15] MEDS: Omeprazole 40 MG CAPSULE.DR PO (05:26)
[2023-02-15 06:05] LABS: Hematocrit 26.8 % (42.0-52.0); Hemoglobin 8.1 g/dl (14.0-18.0); Mean Corpuscular HGB Conc 30.2 g/dl (31.0-36.0); Mean Corpuscular Hemoglobin 24.2 pg (27.0-33.0); Mean Platelet Volume 8.4 fL (9.4-12.4); Platelet Count 382 X10*3/uL (160-400); Red Blood Count 3.35 X10*6/uL (4.60-5.80); Red Cell Distribution Width 19.7 % (11.0-16.0); White Blood Count 18.5 X10*3/uL (4.8-10.8)
[2023-02-15 06:35] LABS: Anion Gap 16 (12-20); Blood Urea Nitrogen 12 mg/dL (9-16); Calcium 8.5 mg/dL (8.4-10.2); Carbon Dioxide 23 mmol/L (22-29); Chloride 97 mmol/L (96-108); Creatinine Clr Calc Pharmacy 117.8; Estimated Glomerular Filt Rate > 60; Glucose Fasting 119 mg/dL (60-99); Potassium 4.2 mmol/L (3.3-5.1); Sodium 132 mmol/L (135-145)
[2023-02-15] MEDS: cefEPime HCl 2 GM in 0.9 % Sodium Chloride 50 ML IV (09:06)
[2023-02-15] MEDS: Thiamine HCL 100 MG TABLET PO (09:06)
[2023-02-15] MEDS: Furosemide 20 MG TABLET PO (09:06)
[2023-02-15] MEDS: Metoprolol Tartrate 100 MG TABLET PO ×2 (09:06→20:17)
[2023-02-15] MEDS: Magnesium Oxide 400 MG TABLET PO ×2 (09:06→16:54)
[2023-02-15] MEDS: Folic Acid 1 MG TABLET PO (09:06)
[2023-02-15] MEDS: Amiodarone HCL 200 MG TABLET PO (09:07)
[2023-02-15] MEDS: 0.9 % Sodium Chloride Flush 3 ML SYRINGE IVFLUSH ×3 (09:07→23:52)
[2023-02-15] MEDS: Digoxin 0.125 MG TABLET PO (09:07)
[2023-02-15 09:17] VITALS: BP 155/69; PULSE 77; RESP 18; O2SAT 98
[2023-02-15] MEDS: vancomycin HCL 1,250 MG in 0.9 % Sodium Chloride 250 ML 166 MG IV (10:13)
[2023-02-15 10:42] VITALS: BP 155/69; PULSE 77; O2SAT 98
--- NOTE | 2023-02-15 11:11 | P.PNIM_ITS ---
Subjective Subjective Date of Service: 02/15/23 Interval History: Seen and evaluated this mrning POD 1 tolerating pain well, reporting phantom pain no reported overnight events Review of Systems Review of Systems: Yes all other systems are reviewed and are negative Physical Exam Vital Signs: Vital Signs: Last Vital Signs Temp 97 F 02/15/23 03:19 Pulse 77 02/15/23 10:42 Resp 18 02/15/23 09:17 BP 155/69 H 02/15/23 10:42 Pulse Ox 98 02/15/23 10:42 O2 Del Method Room Air 02/15/23 09:17 O2 Flow Rate 1.5 02/14/23 15:00 BMI result Body Mass Index 22.8 Const: Other: Constitutional : Awake, interactive, not in distress Neck : Normal inspection, Supple Cardiovascular : RRR, no JVP, no lower extremity edema Respiratory : good bilateral air entry, no crackles, wheezes or rhonchi Gastrointestinal: soft, lax, Normal bowel sounds, Non tender Skin : Warm, Dry, Rt AKA, Lt leg with ulcers penetrating to tendon and bone and significant knee contracture Neurological : Alert & oriented x3, No focal deficit Objective Data Active Medications Acetaminophen (Acetaminophen 325 Mg Tablet) 650 mg PO Q6H PRN PRN Reason: Pain, Mild (Pain Scale 1-3) Last Admin: 02/14/23 20:28 Dose: 650 mg Documented By: POLY Amiodarone HCl (Amiodarone Hcl 200 Mg Tablet) 200 mg PO DAILY [facility] Last Admin: 02/15/23 09:07 Dose: 200 mg Documented By: ALEE Atorvastatin Calcium (Atorvastatin Calcium 40 Mg Tablet) 40 mg PO BEDTIME [facility] Last Admin: 02/14/23 20:28 Dose: 40 mg Documented By: POLY Digoxin (Digoxin 0.125 Mg Tablet) 0.125 mg PO DAILY [facility] Last Admin: 02/15/23 09:07 Dose: 0.125 mg Documented By: ALEE Enoxaparin Sodium (Enoxaparin Sodium 40 Mg/0.4 Ml Syringe) 40 mg SUBCUT Q24H [facility] Last Admin: 02/14/23 10:15 Dose: Not Given Documented By: ROSEMARIE Non-Admin Reason: held for OR schedule today Folic Acid (Folic Acid 1 Mg Tablet) 1 mg PO DAILY [facility] Last Admin: 02/15/23 09:06 Dose: 1 mg Documented By: ALEE Furosemide (Furosemide 20 Mg Tablet) 20 mg PO DAILY [facility]; Protocol Last Admin: 02/15/23 09:06 Dose: 20 mg Documented By: ALEE Hydromorphone HCl (Hydromorphone Hcl 1 Mg/Ml Syringe) 1 mg IVPUSH Q4H PRN; Protocol PRN Reason: moderate pain Last Admin: 02/15/23 09:23 Dose: 1 mg Documented By: ALEE Cefepime HCl 2 gm/ Sodium (Chloride) 50 mls @ 100 mls/hr IV Q8H [facility] Last Infusion: 02/15/23 10:01 Dose: 0 mls/hr Documented By: ALEE Vancomycin HCl 1,250 mg/ (Sodium Chloride) 250 mls @ 166.667 mls/hr IV Q12H [facility] Last Admin: 02/15/23 10:13 Dose: 166 mls/hr Documented By: PARISH Magn[facility]ide ([facility] Mg [facility] Last Admin: 02/15/23 09:06 Dose: 400 mg Documented By: ALEE Melatonin (Melatonin 3 Mg Tablet) 6 mg PO BEDTIME PRN PRN Reason: Insomnia Last Admin: 02/12/23 23:25 Dose: 6 mg Documented By: MERLINE Metoprolol Tartrate (Metoprolol Tartrate 100 Mg Tablet) 100 mg PO BID [facility]; Protocol Last Admin: 02/15/23 09:06 Dose: 100 mg Documented By: ALEE Omeprazole (Omeprazole 40 Mg Capsule.) 40 mg PO DAILY@0630 [facility] Last Admin: 02/15/23 05:26 Dose: 40 mg Documented By: ERROL Ondansetron HCl (Ondansetron Hcl 4 Mg/2 Ml Vial) 4 mg IVPUSH Q8H PRN PRN Reason: Nausea and Vomiting Oxycodone HCl (Oxycodone Hcl Immed Release 5 Mg Tablet) 10 mg PO Q4H PRN PRN Reason: moderate pain Last Admin: 02/15/23 03:24 Dose: 10 mg Documented By: ERROL Pharmacy Consult (Consult Rx Perform Med Rec) 1 each MISCELLANE ONCE PRN PRN Reason: Consult order Pharmacy Consult (Consult Rx Vancomycin Dosing) 1 each MISCELLANE DAILY PRN PRN Reason: Consult order Sodium Chloride (0.9 % Sodium Chloride Flush 3 Ml Syringe) 3 ml IVFLUSH QSHIFT [facility] Last Admin: 02/15/23 09:07 Dose: 3 ml Documented By: ALEE Thiamine HCl (Thiamine Hcl 100 Mg Tablet) 100 mg PO DAILY [facility] Last Admin: 02/15/23 09:06 Dose: 100 mg Documented By: ALEE Labs 02/15/23 05:36 02/15/23 05:36 Labs: Laboratory Results - last 24 hr 02/14/23 02/15/23 02/15/23 19:06 05:36 05:36 MCV 80.0 MCH 24.2 L MCHC 30.2 L RDW 19.7 H Plt Count 382 MPV 8.4 L Absolute Nucleated RBC 0.000 Nucleated RBC % (auto) 0.0 Anion Gap 16 Estim Creat Clear Calc 117.8 Estimated GFR > 60 Fasting Glucose 119 H Calcium 8.5 Vancomycin Trough 12.9 Microbiology Microbiology Results: Microbiology 02/09/23 20:03 Blood Culture - Final Blood - Venous No growth after 5 days. 02/09/23 19:27 Blood Culture - Final Blood - Venous No growth after 5 days. Assessment and Plan (1) Non-healing wound of right lower extremity: Status: Acute (2) Physical deconditioning: Status: Acute Plan 62M PMH ischemic cardiomypathy, chornic afib, PVD, chronic lower extremity burn wounds, copd, htn, presented with wound pain non healing burn wounds of bilateral lower extremities with possible superimposed cellulitis POD 1 Pain meds start PT DC empiric vanc, cefepime Start PO Doxy and Keflex plan for eventual left AKA as OP with dr Azul chronic afib with rvr amio, dig, lopressor eliquis on hold for surgery, to restart chronic systolic chf/ CAD - triple vessel disease statin, beta miguel a copd stable dvt prophylaxis - lovenox full code reason for continued hospitalization: post AKA, pending safe discharge plan Time Spent With Patient Time: Total time managing care of this patient today ____ minutes. Quality Stroke Does the patient have a stroke diagnosis?: No VTE Prior VTE?: No VTE Risk Level:: Medical - moderate - high VTE Device Contraindication: Treatment Not Indicated VTE Drug Contraindication: Treatment Not Indicated
--- NOTE | 2023-02-15 12:21 | HO.VASCPN ---
Subjective Subjective Date of Service: 02/15/23 Patient reports: no new complaints and feels better Interval history: Patient seen examined. Postop day 1 status post right AKA. Pain appears to be well controlled. In general patient is in good spirits. Of note dressing fell off last night and had to be replaced. Physical Exam Vital Signs: Vital Signs: Last Vital Signs Temp 97 F 02/15/23 03:19 Pulse 77 02/15/23 10:42 Resp 18 02/15/23 09:17 BP 155/69 H 02/15/23 10:42 Pulse Ox 98 02/15/23 10:42 O2 Del Method Room Air 02/15/23 09:17 O2 Flow Rate 1.5 02/14/23 15:00 BMI result Body Mass Index 22.8 Const: General: cooperative, healthy appearing and no acute distress Orientation/consciousness: oriented to person, oriented to place and oriented to time HEENT: Head: Yes normal to inspection Neck: Carotids: no bruits Chest: Chest palpation & inspection: normal inspection of the chest Resp: Effort & Inspection: normal respiratory effort and able to speak in complete sentences Auscultation: clear to auscultation bilaterally Cardio: Rate: regular rate Heart sounds: S1 normal heart sound present and S2 normal heart sound present GI: Inspection: Yes normal to inspection Skin: Other: Right amp dressing clean dry intact General skin exam: no rashes or lesions noted Wounds: no wounds Neuro: General: oriented to person, oriented to place, oriented to time and CN's II-XI intact bilaterally Extrem: General: Yes normal to inspection, Yes full ROM and Yes no clubbing, cyanosis or edema Psych: Appearance: grossly normal and well kempt Speech and movement: Normal speech and movement present Affect: normal affect Progress Note: A&P Assessment and plan (1) Above knee amputation of right lower extremity: Status: Acute Assessment and Plan: In short patient is doing well status post right AKA. Will plan for dressing change for tomorrow. Can restart Eliquis. Will plan for rehab placement. Subsequent to that once this become stable will plan for contralateral leg above knee amputation. Time Spent With Patient Time: Total time managing care of this patient today ____ minutes. Procedures Date of Service Date of Service: 02/15/23 Quality Stroke Does the patient have a stroke diagnosis?: No VTE Prior VTE?: No VTE Risk Level:: Medical - moderate - high VTE Device Contraindication: Treatment Not Indicated VTE Drug Contraindication: Treatment Not Indicated
--- NOTE | 2023-02-15 12:57 | MHC.CM.PN ---
physical therapy recommended str to which pt is agreeable referrals made
[2023-02-15] MEDS: Apixaban 5 MG TABLET PO ×2 (14:04→20:16)
[2023-02-15] MEDS: Doxycycline Monohydrate 100 MG CAPSULE PO ×2 (14:04→23:51)
[2023-02-15] MEDS: cephALEXin 500 MG CAPSULE PO ×2 (14:31→23:51)
[2023-02-15 16:00] VITALS: PULSE 68; RESP 17; TEMP 36.6; O2SAT 93
--- NOTE | 2023-02-15 16:08 | PC.NURSE ---
Orders for daily dressing changes to left lower leg. Patient refusing this shift. States, we can change them later on.
[2023-02-15 20:12] LABS: Vancomycin Random 16.5 mcg/mL (15-20)
[2023-02-15 20:17] VITALS: BP 130/77; PULSE 77
[2023-02-15] MEDS: Atorvastatin Calcium 40 MG TABLET PO (20:18)
[2023-02-15 23:57] VITALS: BP 131/69; PULSE 58; RESP 17; TEMP 36.6; O2SAT 93
[2023-02-16] VITALS (7 sets, daily range): BP systolic 120–146; BP diastolic 64–86; PULSE 60–85; RESP 16–18; TEMP 36.3–37; O2SAT 97–98
[2023-02-16] MEDS: HYDROmorphone HCl 1 MG/ML SYRINGE IVPUSH ×6 (02:38→22:27)
[2023-02-16 06:04] LABS: Hematocrit 23.5 % (42.0-52.0); Mean Corpuscular HGB Conc 29.8 g/dl (31.0-36.0); Mean Corpuscular Hemoglobin 23.8 pg (27.0-33.0); Mean Corpuscular Volume 79.9 fL (80.0-98.0); Mean Platelet Volume 8.5 fL (9.4-12.4); Platelet Count 408 X10*3/uL (160-400); Red Blood Count 2.94 X10*6/uL (4.60-5.80); Red Cell Distribution Width 19.6 % (11.0-16.0); White Blood Count 13.2 X10*3/uL (4.8-10.8)
[2023-02-16] MEDS: Omeprazole 40 MG CAPSULE.DR PO (06:23)
--- NOTE | 2023-02-16 06:40 | PC.NURSE ---
RECEIVED TIGER TEXT FROM LAB, G[facility] P[facility] HEMOGLOBIN VALUE, 7.0, WAS 8.1 PREVIOUS DAY. HOSPITALIST ON DUTY ALERTED AT 0635 AND REPLIED THANK YOU. AWAITING IF NEW ORDERS AND WILL REPORT TO DAY RN. PT HAS NO ACTIVE BLEEDING, VSS, POD #2 RIGHT AKA. WILL CONT TO MONITOR
[2023-02-16 06:53] LABS: Anion Gap 11 (12-20); Blood Urea Nitrogen 13 mg/dL (9-16); Calcium 8.3 mg/dL (8.4-10.2); Carbon Dioxide 27 mmol/L (22-29); Chloride 98 mmol/L (96-108); Creatinine Clr Calc Pharmacy 121.8; Estimated Glomerular Filt Rate > 60; Glucose Random 102 mg/dL (60-115); Potassium 3.9 mmol/L (3.3-5.1); Sodium 132 mmol/L (135-145)
[2023-02-16] MEDS: Amiodarone HCL 200 MG TABLET PO (08:25)
[2023-02-16] MEDS: Apixaban 5 MG TABLET PO ×2 (08:25→20:16)
[2023-02-16] MEDS: Magnesium Oxide 400 MG TABLET PO ×2 (08:25→17:00)
[2023-02-16] MEDS: Digoxin 0.125 MG TABLET PO (08:25)
[2023-02-16] MEDS: Folic Acid 1 MG TABLET PO (08:25)
[2023-02-16] MEDS: Furosemide 20 MG TABLET PO (08:25)
[2023-02-16] MEDS: Thiamine HCL 100 MG TABLET PO (08:25)
[2023-02-16] MEDS: Metoprolol Tartrate 100 MG TABLET PO ×2 (08:25→20:16)
[2023-02-16] MEDS: 0.9 % Sodium Chloride Flush 3 ML SYRINGE IVFLUSH ×3 (08:31→20:16)
--- NOTE | 2023-02-16 09:26 | HO.PM.IMPN ---
Subjective Subjective Date of Service: 02/16/23 Interval History: Seen and evaluated this mrning POD 2 Hb dropped to 7, no blood loss noted tolerating pain well no reported overnight events Physical Exam Vital Signs: Vital Signs: Last Vital Signs Temp 98.6 F 02/16/23 08:00 Pulse 81 02/16/23 08:00 Resp 16 02/16/23 08:00 BP 135/80 02/16/23 08:00 Pulse Ox 98 02/16/23 08:00 O2 Del Method Room Air 02/16/23 08:00 O2 Flow Rate 1.5 02/14/23 15:00 BMI result Body Mass Index 22.8 Const: Other: Constitutional : Awake, interactive, not in distress Neck : Normal inspection, Supple Cardiovascular : RRR, no JVP, no lower extremity edema Respiratory : good bilateral air entry, no crackles, wheezes or rhonchi Gastrointestinal: soft, lax, Normal bowel sounds, Non tender Skin : Warm, Dry, Rt AKA with clean stump, Lt leg with ulcers penetrating to tendon and bone and significant knee contracture Neurological : Alert & oriented x3, No focal deficit Objective Data Active Medications Acetaminophen (Acetaminophen 325 Mg Tablet) 650 mg PO Q6H PRN PRN Reason: Pain, Mild (Pain Scale 1-3) Last Admin: 02/14/23 20:28 Dose: 650 mg Documented By: POLY Amiodarone HCl (Amiodarone Hcl 200 Mg Tablet) 200 mg PO DAILY [facility] Last Admin: 02/16/23 08:25 Dose: 200 mg Documented By: CLAUDE Apixaban (Apixaban 5 Mg Tablet) 5 mg PO BID [facility] Last Admin: 02/16/23 08:25 Dose: 5 mg Documented By: CLAUDE Atorvastatin Calcium (Atorvastatin Calcium 40 Mg Tablet) 40 mg PO BEDTIME [facility] Last Admin: 02/15/23 20:18 Dose: 40 mg Documented By: POLY Cephalexin HCl (Cephalexin 500 Mg Capsule) 500 mg PO Q12H [facility] Last Admin: 02/15/23 23:51 Dose: 500 mg Documented By: LANDRY Digoxin (Digoxin 0.125 Mg Tablet) 0.125 mg PO DAILY [facility] Last Admin: 02/16/23 08:25 Dose: 0.125 mg Documented By: CLAUDE Doxycycline Monohydrate (Doxycycline Monohydrate 100 Mg Capsule) 100 mg PO Q12H [facility] Last Admin: 02/15/23 23:51 Dose: 100 mg Documented By: LANDRY Folic Acid (Folic Acid 1 Mg Tablet) 1 mg PO DAILY [facility] Last Admin: 02/16/23 08:25 Dose: 1 mg Documented By: CLAUDE Furosemide (Furosemide 20 Mg Tablet) 20 mg PO DAILY [facility]; Protocol Last Admin: 02/16/23 08:25 Dose: 20 mg Documented By: CLAUDE Hydromorphone HCl (Hydromorphone Hcl 1 Mg/Ml Syringe) 1 mg IVPUSH Q4H PRN; Protocol PRN Reason: moderate pain Last Admin: 02/16/23 06:38 Dose: 1 mg Documented By: LANDRY Magnesium Oxide (Magnesium [facility]ide 400 Mg Tablet) [facility] Last Admin: 02/16/23 08:25 Dose: 400 mg Documented By: CLAUDE Melatonin (Melatonin 3 Mg Tablet) 6 mg PO BEDTIME PRN PRN Reason: Insomnia Last Admin: 02/12/23 23:25 Dose: 6 mg Documented By: MERLINE Metoprolol Tartrate (Metoprolol Tartrate 100 Mg Tablet) 100 mg PO BID [facility]; Protocol Last Admin: 02/16/23 08:25 Dose: 100 mg Documented By: CLAUDE Omeprazole (Omeprazole 40 Mg Capsule.Dr) 40 mg PO DAILY@0630 [facility] Last Admin: 02/16/23 06:23 Dose: 40 mg Documented By: LANDRY Ondansetron HCl (Ondansetron Hcl 4 Mg/2 Ml Vial) 4 mg IVPUSH Q8H PRN PRN Reason: Nausea and Vomiting Oxycodone HCl (Oxycodone Hcl Immed Release 5 Mg Tablet) 10 mg PO Q4H PRN PRN Reason: moderate pain Last Admin: 02/15/23 03:24 Dose: 10 mg Documented By: ERROL Pharmacy Consult (Consult Rx Perform Med Rec) 1 each MISCELLANE ONCE PRN PRN Reason: Consult order Sodium Chloride (0.9 % Sodium Chloride Flush 3 Ml Syringe) 3 ml IVFLUSH QSHIFT [facility] Last Admin: 02/16/23 08:31 Dose: 3 ml Documented By: CLAUDE Thiamine HCl (Thiamine Hcl 100 Mg Tablet) 100 mg PO DAILY [facility] Last Admin: 02/16/23 08:25 Dose: 100 mg Documented By: CLAUDE Labs 02/16/23 05:28 02/16/23 05:28 Labs: Laboratory Results - last 24 hr 02/13/23 02/15/23 02/16/23 08:05 19:23 05:28 MCV 79.9 L MCH 23.8 L MCHC 29.8 L RDW 19.6 H Plt Count 408 H MPV 8.5 L Absolute Nucleated RBC 0.000 Nucleated RBC % (auto) 0.0 Smear Path Review Cancelled Anion Gap Estim Creat Clear Calc Estimated GFR Random Glucose Calcium Random Vancomycin 16.5 Blood Type O Positive Antibody Screen NEGATIVE Crossmatch See Detail 02/16/23 05:28 MCV MCH MCHC RDW Plt Count MPV Absolute Nucleated RBC Nucleated RBC % (auto) Smear Path Review Anion Gap 11 L Estim Creat Clear Calc 121.8 Estimated GFR > 60 Random Glucose 102 Calcium 8.3 L Random Vancomycin Blood Type Antibody Screen Crossmatch Assessment and Plan (1) Above knee amputation of right lower extremity: Status: Acute (2) Acute on chronic blood loss anemia: Status: Acute Plan 62M PMH ischemic cardiomypathy, chornic afib, PVD, chronic lower extremity burn wounds, copd, htn, presented with wound pain non healing burn wounds of bilateral lower extremities with possible superimposed cellulitis POD 2 Pain meds PT DC empiric vanc, cefepime Start PO Doxy and Keflex plan for eventual left AKA as OP with dr Azul Acute on chronic anemia 2/2 blood loss likely blood lost with amputation give 1 unit RBCs follow H&H chronic afib with rvr amio, dig, lopressor eliquis restarted chronic systolic chf/ CAD - triple vessel disease statin, beta miguel a copd stable dvt prophylaxis Eliquis full code reason for continued hospitalization: post AKA, pending safe discharge plan Time Spent With Patient Time: Total time managing care of this patient today ____ minutes. Quality Stroke Does the patient have a stroke diagnosis?: No VTE Prior VTE?: No VTE Risk Level:: Medical - moderate - high VTE Device Contraindication: Treatment Not Indicated VTE Drug Contraindication: Treatment Not Indicated
--- NOTE | 2023-02-16 10:16 | HO.VASCPN ---
Subjective Subjective Date of Service: 02/16/23 Patient reports: no new complaints and feels better Interval history: Complex 62-year-old gentleman presents for follow-up status post right AKA. No events overnight. He reports that the pain is significantly better on the right leg. He is concerned about his left lower extremity. Of note he was restarted on anticoagulation yesterday and his hemoglobin this morning was noted to be 7. He was seen in conjunction with the hospitalist team. Physical Exam Vital Signs: Vital Signs: Last Vital Signs Temp 98.1 F 02/16/23 10:00 Pulse 80 02/16/23 10:00 Resp 16 02/16/23 10:00 BP 146/79 H 02/16/23 10:00 Pulse Ox 98 02/16/23 08:00 O2 Del Method Room Air 02/16/23 08:00 O2 Flow Rate 1.5 02/14/23 15:00 BMI result Body Mass Index 22.8 Const: General: cooperative, healthy appearing and no acute distress Orientation/consciousness: oriented to person, oriented to place and oriented to time HEENT: Head: Yes normal to inspection Neck: Carotids: no bruits Chest: Chest palpation & inspection: normal inspection of the chest Resp: Effort & Inspection: normal respiratory effort and able to speak in complete sentences Auscultation: clear to auscultation bilaterally Cardio: Rate: regular rate Heart sounds: S1 normal heart sound present and S2 normal heart sound present GI: Inspection: Yes normal to inspection Skin: Other: Right stump healing well General skin exam: no rashes or lesions noted Wounds: no wounds Neuro: General: oriented to person, oriented to place, oriented to time and CN's II-XI intact bilaterally Extrem: General: Yes normal to inspection, Yes full ROM and Yes no clubbing, cyanosis or edema Psych: Appearance: grossly normal and well kempt Speech and movement: Normal speech and movement present Affect: normal affect Progress Note: A&P Assessment and plan (1) Above knee amputation of right lower extremity: Status: Acute Assessment and Plan: In short patient is stable status post right above knee amputation. Will write wound care orders. Transfuse as required especially in light of his cardiac history. Once stable stable from my perspective for discharge. We will schedule for the left lower extremity above knee amputation on an outpatient basis. Thank you for allowing us to assist in his care. Of note patient was transfused for anemia acute blood loss postoperatively did do tree intraoperative loss and loss of limb Time Spent With Patient Time: Total time managing care of this patient today ____ minutes. Procedures Date of Service Date of Service: 02/16/23 Quality Stroke Does the patient have a stroke diagnosis?: No VTE Prior VTE?: No VTE Risk Level:: Medical - moderate - high VTE Device Contraindication: Treatment Not Indicated VTE Drug Contraindication: Treatment Not Indicated
[2023-02-16] MEDS: Doxycycline Monohydrate 100 MG CAPSULE PO ×2 (10:43→23:34)
[2023-02-16] MEDS: cephALEXin 500 MG CAPSULE PO ×2 (10:47→23:34)
--- NOTE | 2023-02-16 10:59 | HO.POSTANES ---
Post Anesthesia Evaluation Post Anesthesia Evaluation Date of Service: 02/16/23 Vital Signs: Vital Signs Temp Pulse Resp BP Pulse Ox O2 Del Method 02/16/23 10:00 98.1 F 80 16 146/79 H 02/16/23 09:40 98.6 F 81 16 135/86 02/16/23 08:00 98.6 F 81 16 135/80 98 Room Air 02/15/23 23:57 97.8 F 58 17 131/69 93 Room Air Anesthesia: General Mental Status: Awake Pain Control: Satisfactory Nausea/Vomiting: None Hydration: Adequate Anesthesia-Related Issues: No Anes. Related Issues
[2023-02-16] MEDS: oxyCODONE HCl Immed Release 5 MG TABLET 10 MG PO (12:51)
[2023-02-16] MEDS: Atorvastatin Calcium 40 MG TABLET PO (20:16)
[2023-02-17] MEDS: HYDROmorphone HCl 1 MG/ML SYRINGE IVPUSH ×6 (02:28→22:26)
[2023-02-17] MEDS: Omeprazole 40 MG CAPSULE.DR PO (06:27)
[2023-02-17 06:47] LABS: Hematocrit 28.9 % (42.0-52.0); Hemoglobin 8.7 g/dl (14.0-18.0); Mean Corpuscular HGB Conc 30.1 g/dl (31.0-36.0); Mean Corpuscular Hemoglobin 24.8 pg (27.0-33.0); Mean Corpuscular Volume 82.3 fL (80.0-98.0); Mean Platelet Volume 8.6 fL (9.4-12.4); Platelet Count 444 X10*3/uL (160-400); Red Blood Count 3.51 X10*6/uL (4.60-5.80); Red Cell Distribution Width 19.8 % (11.0-16.0); White Blood Count 11.8 X10*3/uL (4.8-10.8)
[2023-02-17 06:51] LABS: Anion Gap 14 (12-20); Blood Urea Nitrogen 10 mg/dL (9-16); Calcium 8.3 mg/dL (8.4-10.2); Carbon Dioxide 26 mmol/L (22-29); Chloride 95 mmol/L (96-108); Creatinine Clr Calc Pharmacy 126.2; Estimated Glomerular Filt Rate > 60; Glucose Random 91 mg/dL (60-115); Potassium 4.2 mmol/L (3.3-5.1); Sodium 131 mmol/L (135-145)
[2023-02-17] MEDS: oxyCODONE HCl Immed Release 5 MG TABLET 10 MG PO ×2 (07:34→13:03)
[2023-02-17] MEDS: Acetaminophen 325 MG TABLET 650 MG PO (07:34)
[2023-02-17 07:41] VITALS: BP 139/80; PULSE 80; RESP 18; TEMP 36.3; O2SAT 99
[2023-02-17] MEDS: Docusate Sodium 100 MG CAPSULE PO ×2 (08:22→19:58)
[2023-02-17] MEDS: Folic Acid 1 MG TABLET PO (08:22)
[2023-02-17] MEDS: Thiamine HCL 100 MG TABLET PO (08:22)
[2023-02-17] MEDS: Magnesium Oxide 400 MG TABLET PO ×2 (08:22→18:24)
[2023-02-17] MEDS: Metoprolol Tartrate 100 MG TABLET PO ×2 (08:22→19:58)
[2023-02-17] MEDS: Digoxin 0.125 MG TABLET PO (08:23)
[2023-02-17] MEDS: Apixaban 5 MG TABLET PO ×2 (08:23→19:58)
[2023-02-17] MEDS: Amiodarone HCL 200 MG TABLET PO (08:23)
[2023-02-17] MEDS: Furosemide 20 MG TABLET PO (08:23)
[2023-02-17] MEDS: Lactulose 20 GM/30 ML SOLUTION PO ×2 (08:23→19:58)
[2023-02-17] MEDS: 0.9 % Sodium Chloride Flush 3 ML SYRINGE IVFLUSH ×3 (08:25→19:59)
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
[2023-02-17] MEDS: cephALEXin 500 MG CAPSULE PO ×2 (10:56→22:55)
[2023-02-17] MEDS: Doxycycline Monohydrate 100 MG CAPSULE PO ×2 (10:56→22:55)
--- NOTE | 2023-02-17 13:23 | MHC.CM.PN ---
arrangements made for pt to go to [facility] 02/18 at 11 by arsh/otoniel pang aware
[2023-02-17 13:34] VITALS: BP 139/80; PULSE 80; O2SAT 99
[2023-02-17 15:05] VITALS: BP 119/56; PULSE 63; RESP 16; TEMP 36.2; O2SAT 96
[2023-02-17] MEDS: Atorvastatin Calcium 40 MG TABLET PO (19:58)
[2023-02-18] VITALS: BP 105/59; PULSE 88; RESP 16; TEMP 36.1; O2SAT 94
[2023-02-18] MEDS: HYDROmorphone HCl 1 MG/ML SYRINGE IVPUSH ×2 (02:28→06:32)
[2023-02-18] MEDS: Omeprazole 40 MG CAPSULE.DR PO (05:46)
[2023-02-18 07:11] LABS: Creatinine Clr Calc Pharmacy 115.8; Estimated Glomerular Filt Rate > 60
[2023-02-18 07:57] VITALS: BP 153/80; PULSE 75; RESP 18; TEMP 36.2; O2SAT 99
[2023-02-18] MEDS: HYDROmorphone HCl 2 MG TABLET PO ×2 (08:19→12:27)
[2023-02-18] MEDS: Furosemide 20 MG TABLET PO (08:19)
[2023-02-18] MEDS: Magnesium Oxide 400 MG TABLET PO (08:19)
[2023-02-18] MEDS: Amiodarone HCL 200 MG TABLET PO (08:20)
[2023-02-18] MEDS: Metoprolol Tartrate 100 MG TABLET PO (08:20)
[2023-02-18] MEDS: Apixaban 5 MG TABLET PO (08:20)
[2023-02-18] MEDS: 0.9 % Sodium Chloride Flush 3 ML SYRINGE IVFLUSH (08:20)
[2023-02-18] MEDS: Docusate Sodium 100 MG CAPSULE PO (08:20)
[2023-02-18] MEDS: Digoxin 0.125 MG TABLET PO (08:20)
[2023-02-18] MEDS: Folic Acid 1 MG TABLET PO (08:20)
[2023-02-18] MEDS: Lactulose 20 GM/30 ML SOLUTION PO (08:20)
[2023-02-18] MEDS: Thiamine HCL 100 MG TABLET PO (08:20)
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
[2023-02-18] MEDS: HYDROmorphone HCl 1 MG/ML SYRINGE 0.5 MG IVPUSH ×2 (10:19→13:52)
[2023-02-18] MEDS: Doxycycline Monohydrate 100 MG CAPSULE PO (10:20)
[2023-02-18] MEDS: cephALEXin 500 MG CAPSULE PO (10:20)
[2023-02-18 10:46] LABS: COVID-19 Test Negative (Negative); IDNOW Serial# 08D9AD1C
--- NOTE | 2023-02-18 13:52 | MHC.CM.PN ---
PT CHIP RODRIGUEZ TO [facility] TODAY VIA ISMAEL VELOZ
== END 2023-02-18 14:34 | disposition skilled nursing facility (03) | DRG 364 ==
LOC: HO.ED 19:32 → HO.EDOVER 02-10 01:37 → HO.S3 02-10 13:20
PROVIDERS: Internal Medicine; Physician Assistant; Surgery Vascular Surgery; Admitting Provider Student in an Organized Health Care Education/Training Program; Emergency Provider Emergency Medicine Emergency Medical Services; PCP Nurse Practitioner Family; Visit Provider Student in an Organized Health Care Education/Training Program
PROC: 0Y6C0Z2 Detachment at Right Upper Leg, Mid, Open Approach (ICD-10-PCS; CPT 27590; principal; 2023-02-14 12:00)
DX: L97.816 Non-pressure chronic ulcer of other part of right lower leg with bone involvement without evidence of necrosis (principal); I42.9 Cardiomyopathy, unspecified; I11.0 Hypertensive heart disease with heart failure; I50.22 Chronic systolic (congestive) heart failure; I48.20 Chronic atrial fibrillation, unspecified; D62 Acute posthemorrhagic anemia; L03.116 Cellulitis of left lower limb; L03.115 Cellulitis of right lower limb; M24.561 Contracture, right knee; L97.826 Non-pressure chronic ulcer of other part of left lower leg with bone involvement without evidence of necrosis; J44.9 Chronic obstructive pulmonary disease, unspecified; T24.001A Burn of unspecified degree of unspecified site of right lower limb, except ankle and foot, initial encounter; I25.10 Atherosclerotic heart disease of native coronary artery without angina pectoris; M24.562 Contracture, left knee; W39.XXXS Discharge of firework, sequela; T24.002S Burn of unspecified degree of unspecified site of left lower limb, except ankle and foot, sequela; T24.001S Burn of unspecified degree of unspecified site of right lower limb, except ankle and foot, sequela; F17.210 Nicotine dependence, cigarettes, uncomplicated; Z20.822 Contact with and (suspected) exposure to COVID-19; Z71.6 Tobacco abuse counseling; Z79.01 Long term (current) use of anticoagulants; Z79.899 Other long term (current) drug therapy
CPT/HCPCS: 36415; 80048; 80053; 80202; 82565; 83605; 83735; 85025; 85027; 85652; 86140; 86850; 86900; 86901; 86923; 87040; 87635; 88307; 88311; 97162; 97530; 99285; C1776; J0692; J1100; J1170; J1650; J2250; J2270; J2405; J2543; J3010; J3370; J3371; P9016

== ENCOUNTER → 2023-03-07 10:26 | Outpatient (BNVA) | payer OTHER, SELFPAY | PROVIDERS: PCP Nurse Practitioner Family; Visit Provider Surgery Vascular Surgery ==

== ENCOUNTER 2023-03-13 06:03 | Inpatient (IN) | payer OTHER, SELFPAY ==
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
[2023-03-13] VITALS (18 sets, daily range): BP systolic 104–156; BP diastolic 53–76; PULSE 51–71; RESP 13–20; TEMP 36.1–36.6; O2SAT 95–100; BMI 48.3
--- NOTE | ~2023-03-13 | XR_ITS ---
EXAMINATION: XR CHEST CLINICAL INFORMATION: Fever, shortness of breath COMPARISON: 01/03/2023 TECHNIQUE: Frontal view of the chest was obtained. FINDINGS: Lung volumes are symmetric. No focal consolidation is seen. No evidence of pneumothorax, pleural effusion, or pulmonary edema. The cardiomediastinal contour is unremarkable. No acute osseous findings are seen. XR/XR chest 1V IMPRESSION: No acute cardiopulmonary findings.
[2023-03-13 06:58] LABS: INTERNATIONAL NORM RATIO 1.1 (0.9-1.1); Prothrombin Time 12.4 SEC (10.0-13.1)
[2023-03-13 07:01] LABS: Hematocrit 33.6 % (42.0-52.0); Mean Corpuscular HGB Conc 29.8 g/dl (31.0-36.0); Mean Corpuscular Hemoglobin 24.4 pg (27.0-33.0); Mean Corpuscular Volume 82.2 fL (80.0-98.0); Mean Platelet Volume 8.3 fL (9.4-12.4); Partial Thromboplastin Time 39.5 SEC (26.0-36.4); Platelet Count 373 X10*3/uL (160-400); Red Blood Count 4.09 X10*6/uL (4.60-5.80); Red Cell Distribution Width 17.8 % (11.0-16.0); White Blood Count 9.9 X10*3/uL (4.8-10.8)
[2023-03-13] MEDS: Lactated Ringers 1,000 ML 20 ML IVCONT (07:15)
[2023-03-13 07:19] LABS: Anion Gap 12 (12-20); Blood Urea Nitrogen 9 mg/dL (9-16); Calcium 9.3 mg/dL (8.4-10.2); Carbon Dioxide 25 mmol/L (22-29); Chloride 105 mmol/L (96-108); Creatinine Clr Calc Pharmacy 162.3; Estimated Glomerular Filt Rate > 60; Glucose Random 107 mg/dL (60-115); Potassium 3.9 mmol/L (3.3-5.1); Sodium 138 mmol/L (135-145)
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
[2023-03-13] MEDS: HYDROmorphone HCl 0.5 MG/0.5 ML SYRINGE 0.25 MG IVPUSH ×2 (09:12→09:37)
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
--- NOTE | 2023-03-13 12:28 | PHA.MEDREC ---
Pharmacy Consult ? Medication Reconciliation Pharmacy has completed the medication reconciliation. Pharmacy has reviewed med rec done by nursing.
[2023-03-13] MEDS: 0.9 % Sodium Chloride 1,000 ML 80 ML IVCONT (12:29)
[2023-03-13] MEDS: ceFAZolin Sodium/Dextrose,Iso 2 GM/50 ML PIGGYBACK IV (13:20)
[2023-03-13] MEDS: Gabapentin 300 MG CAPSULE PO ×2 (13:20→21:41)
[2023-03-13] MEDS: Sodium Chloride Tab 1 GM TABLET PO ×2 (15:13→21:41)
[2023-03-13] MEDS: 0.9 % Sodium Chloride Flush 3 ML SYRINGE IVFLUSH (15:13)
--- NOTE | 2023-03-13 15:27 | MHC.CM.PN ---
PATIENT RECENTLY ARRIVED ON UNIT CURRENTLY SLEEPING. DOES NOT WAKE TO THIS INVENTORY CONTROL MANAGER'S ATTEMPTS CASE MANAGEMENT NAME AND PLAN WRITTEN ON WHITE BOARD
--- NOTE | 2023-03-13 15:36 | MHC.CM.PN ---
PER REVIEW OF PREVIOUS VISIT, PATIENT DOES HAVE HCP ON FILE NO VNA WERE OFFERING AND PATIENT WENT TO [facility] FOR HIS WOUND CARE AND THERAPY CASE MANAGEMENT TO DISCUSS PREFERENCES TOMORROW
[2023-03-13] MEDS: Magnesium Oxide 400 MG TABLET PO (17:15)
[2023-03-13] MEDS: Heparin Sodium,Porcine 5,000 UNIT/ML VIAL 5000 UNIT SUBCUT (17:15)
[2023-03-13] MEDS: Morphine Sulfate 2 MG/ML CARTRIDGE IVPUSH (18:07)
[2023-03-13] MEDS: Atorvastatin Calcium 40 MG TABLET PO (21:40)
[2023-03-13] MEDS: Docusate Sodium 100 MG CAPSULE PO (21:41)
[2023-03-13] MEDS: Metoprolol Tartrate 100 MG TABLET PO (21:41)
[2023-03-13] MEDS: oxyCODONE HCl Immed Release 5 MG TABLET PO (22:28)
[2023-03-14] MEDS: 0.9 % Sodium Chloride 1,000 ML 80 ML IVCONT (00:28)
[2023-03-14] MEDS: Heparin Sodium,Porcine 5,000 UNIT/ML VIAL 5000 UNIT SUBCUT ×2 (01:45→09:14)
[2023-03-14 03:13] VITALS: BP 137/63; PULSE 100; RESP 18; TEMP 36.7; O2SAT 96
[2023-03-14] MEDS: Gabapentin 300 MG CAPSULE PO ×3 (03:36→20:23)
[2023-03-14] MEDS: oxyCODONE HCl Immed Release 5 MG TABLET PO ×5 (03:36→20:23)
[2023-03-14] MEDS: Omeprazole 40 MG CAPSULE.DR PO (05:37)
[2023-03-14 06:14] LABS: MANUAL DIFF FLAG NO
[2023-03-14 06:16] LABS: Basophils Percent Auto 0.2 % (0-2); Eosinophils Absolute Auto 0.1 X10*3/uL (0.0-0.4); Eosinophils Percent Auto 0.7 % (0-4); Hematocrit 25.7 % (42.0-52.0); Hemoglobin 7.7 g/dl (14.0-18.0); Imm Gran Abs Auto 0.06 X10*3/uL (0.00-0.03); Imm Gran Pct Auto 0.6 % (0.0-0.4); Lymphocytes Absolute Auto 0.9 X10*3/uL (1.2-4.9); Lymphocytes Percent Auto 8.6 % (20-40); Mean Corpuscular Hemoglobin 24.6 pg (27.0-33.0); Mean Corpuscular Volume 82.1 fL (80.0-98.0); Mean Platelet Volume 8.3 fL (9.4-12.4); Monocytes Absolute Auto 0.9 X10*3/uL (0.1-1.2); Monocytes Percent Auto 8.3 % (2-11); Neutrophils Absolute Auto 8.7 x10*3/uL (2.0-8.3); Neutrophils Percent Auto 81.6 % (45-73); Platelet Count 298 X10*3/uL (160-400); Red Blood Count 3.13 X10*6/uL (4.60-5.80); Red Cell Distribution Width 17.6 % (11.0-16.0); White Blood Count 10.7 X10*3/uL (4.8-10.8)
[2023-03-14 06:35] LABS: Anion Gap 11 (12-20); Blood Urea Nitrogen 7 mg/dL (9-16); Calcium 7.9 mg/dL (8.4-10.2); Carbon Dioxide 22 mmol/L (22-29); Chloride 106 mmol/L (96-108); Estimated Glomerular Filt Rate > 60; Glucose Random 115 mg/dL (60-115); Potassium 3.2 mmol/L (3.3-5.1); Sodium 136 mmol/L (135-145)
[2023-03-14 07:50] VITALS: BP 144/77; PULSE 78; RESP 18; TEMP 36.4; O2SAT 98
[2023-03-14 07:52] VITALS: O2SAT 97
[2023-03-14] MEDS: Thiamine HCL 100 MG TABLET PO (07:56)
[2023-03-14] MEDS: Folic Acid 1 MG TABLET PO (07:56)
[2023-03-14] MEDS: Docusate Sodium 100 MG CAPSULE PO ×2 (07:56→20:23)
[2023-03-14] MEDS: Amiodarone HCL 200 MG TABLET PO (07:56)
[2023-03-14] MEDS: Sodium Chloride Tab 1 GM TABLET PO ×3 (07:56→20:23)
[2023-03-14] MEDS: Lactulose 20 GM/30 ML SOLUTION PO (07:56)
[2023-03-14] MEDS: Furosemide 20 MG TABLET PO (07:56)
[2023-03-14] MEDS: Magnesium Oxide 400 MG TABLET PO ×2 (07:57→16:14)
[2023-03-14] MEDS: Digoxin 0.125 MG TABLET PO (07:57)
[2023-03-14] MEDS: Metoprolol Tartrate 100 MG TABLET PO ×2 (07:57→20:23)
--- NOTE | 2023-03-14 09:05 | HO.POSTANES ---
Post Anesthesia Evaluation Post Anesthesia Evaluation Date of Service: 03/14/23 Vital Signs: Vital Signs Temp Pulse Resp BP Pulse Ox O2 Del Method 03/14/23 07:52 97 Room Air 03/14/23 07:50 97.5 F 78 18 144/77 H 98 Room Air 03/14/23 03:13 98.0 F 100 18 137/63 96 Room Air Anesthesia: General Mental Status: Awake Pain Control: Satisfactory (difficulty controlling pain) Nausea/Vomiting: None Hydration: Adequate Anesthesia-Related Issues: No Anes. Related Issues
--- NOTE | 2023-03-14 09:11 | HO.VASCPN ---
Subjective Subjective Date of Service: 03/14/23 Patient reports: no new complaints and feels better Interval history: Patient is status post left AKA. He appears to be doing relatively well. No interval issues. Pain reasonably well controlled. In bed tolerating a diet this morning. He was most concerned about his rehab placement. Physical Exam Vital Signs: Vital Signs: Last Vital Signs Temp 97.5 F 03/14/23 07:50 Pulse 78 03/14/23 07:50 Resp 18 03/14/23 07:50 BP 144/77 H 03/14/23 07:50 Pulse Ox 97 03/14/23 07:52 O2 Del Method Room Air 03/14/23 07:52 O2 Flow Rate 2 03/13/23 16:00 BMI result Body Mass Index 48.3 Const: General: cooperative, healthy appearing and no acute distress Orientation/consciousness: oriented to person, oriented to place and oriented to time HEENT: Head: Yes normal to inspection Neck: Carotids: no bruits Chest: Chest palpation & inspection: normal inspection of the chest Resp: Effort & Inspection: normal respiratory effort and able to speak in complete sentences Auscultation: clear to auscultation bilaterally Cardio: Rate: regular rate Heart sounds: S1 normal heart sound present and S2 normal heart sound present GI: Inspection: Yes normal to inspection Skin: Other: Right AKA healing well. Left AKA dressing clean dry intact. General skin exam: no rashes or lesions noted Wounds: no wounds Neuro: General: oriented to person, oriented to place, oriented to time and CN's II-XI intact bilaterally Extrem: General: Yes normal to inspection, Yes full ROM and Yes no clubbing, cyanosis or edema Psych: Appearance: grossly normal and well kempt Speech and movement: Normal speech and movement present Affect: normal affect Progress Note: A&P Assessment and plan (1) S/P AKA (above knee amputation): Status: Acute Assessment and Plan: In short patient is doing well status post AKA. Will plan for dressing change for tomorrow. Should that be stable may be possibly go to rehab as early as tomorrow. Will obtain PT OT eval as required. Time Spent With Patient Time: Total time managing care of this patient today ____ minutes. Procedures Date of Service Date of Service: 03/14/23 Quality Stroke Does the patient have a stroke diagnosis?: No VTE Prior VTE?: No VTE Risk Level:: Surgical - moderate VTE Device Contraindication: Treatment Not Indicated VTE Drug Contraindication: N/A - Med Ordered
--- NOTE | 2023-03-14 09:26 | MHC.CM.PN ---
Addendum entered by Ирина Santiago RN 03/14/23 09:27: [facility], RN, YESICA, CALLED AND REPORTS PATIENT BEING ACTIVE. YESICA'S NUMBER [phone].OPTION 2. SHE ASKS FOR A CALL BACK WITH DEFINITIVE PLAN. Original Note: PATIENT MET WITH VASCULAR SURGEON AND ASKED FOR A REFERRAL TO [facility], NOW PLACED. PLAN IS FOR DC TOMORROW IF A BED CAN BE OFFERED. CASE MANAGEMENT FOLLOWING
[2023-03-14 09:30] VITALS: O2SAT 97
--- NOTE | 2023-03-14 10:25 | PC.NURSE ---
Pt currently on telemetry monitoring, Tele monitor room made this nurse aware Pts rhythm was Afib with intermittent bradycardia, HR of 35 beats per minute at the lowest, Pt was found to be sleeping at this time, when woken up patients HR went up to mid 50s-[address] Longo made aware and came to patients bedside for assessment, no changes made to medications, patients remains asymptomatic, will continue to monitor.
--- NOTE | 2023-03-14 13:50 | MHC.CM.PN ---
Addendum entered by Ирина Santiago RN 03/14/23 16:18: [facility] IS OFFERING A BED FOR TOMORROW [facility] AND PATIENT MADE AWARE Original Note: [facility] NOT ABLE TO COMMIT TO AN OFFER OF THIS NOTE REFERRAL TO [facility], PT AND OT RECOMMEND ACUTE REHAB AT [place] CASE MANAGEMENT FOLLOWING
[2023-03-14] MEDS: 0.9 % Sodium Chloride Flush 3 ML SYRINGE IVFLUSH (14:42)
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
[2023-03-14 16:00] VITALS: BP 148/70; PULSE 86; RESP 20; TEMP 36.4; O2SAT 92
[2023-03-14 19:58] VITALS: BP 142/64; PULSE 71; RESP 20; TEMP 36.3; O2SAT 99
[2023-03-14] MEDS: Atorvastatin Calcium 40 MG TABLET PO (20:23)
[2023-03-14] MEDS: Apixaban 5 MG TABLET PO (20:23)
[2023-03-15] VITALS (7 sets, daily range): BP systolic 98–139; BP diastolic 54–96; PULSE 59–90; RESP 16–20; TEMP 36.2–38; O2SAT 98–100
[2023-03-15] MEDS: oxyCODONE HCl Immed Release 5 MG TABLET PO ×6 (00:45→23:43)
[2023-03-15] MEDS: 0.9 % Sodium Chloride Flush 3 ML SYRINGE IVFLUSH ×3 (00:46→19:34)
--- NOTE | 2023-03-15 04:15 | PC.NURSE ---
Pt does get chas when asleep but arouses to verbal stimuli. He had 3.8 sec pause and awoke upon entrance to the room. He was A&OX4, denied any symptoms and was having a full conversation. Pt stated his HR gets low when he is in deep sleep.MD Gutiérrez notified, no new orders.
--- NOTE | 2023-03-15 04:34 | PM.EVENT ---
Event Note Date of Service: 03/15/23 Event Note: Patient had a 3.2nd pause on telemetry. Asymptomatic. Will hold metoprolol. Time Spent With Patient Time: Total time managing care of this patient today ____ minutes.
[2023-03-15] MEDS: Omeprazole 40 MG CAPSULE.DR PO (05:25)
[2023-03-15] MEDS: Gabapentin 300 MG CAPSULE PO ×3 (05:25→20:06)
[2023-03-15] MEDS: Digoxin 0.125 MG TABLET PO (08:28)
[2023-03-15] MEDS: Thiamine HCL 100 MG TABLET PO (08:28)
[2023-03-15] MEDS: Sodium Chloride Tab 1 GM TABLET PO ×3 (08:29→20:06)
[2023-03-15] MEDS: Apixaban 5 MG TABLET PO ×2 (08:29→20:06)
[2023-03-15] MEDS: Amiodarone HCL 200 MG TABLET PO (08:29)
[2023-03-15] MEDS: Docusate Sodium 100 MG CAPSULE PO ×2 (08:29→20:05)
[2023-03-15] MEDS: Furosemide 20 MG TABLET PO (08:29)
[2023-03-15] MEDS: Folic Acid 1 MG TABLET PO (08:29)
[2023-03-15] MEDS: Magnesium Oxide 400 MG TABLET PO ×2 (08:29→16:19)
[2023-03-15] MEDS: Lactulose 20 GM/30 ML SOLUTION PO (08:32)
--- NOTE | 2023-03-15 12:03 | MHC.CM.PN ---
[facility] HAS AUTH TO ADMIT PATIENT HAD AN ASYMPTOMATIC PAUSE AWAITING CARDIO INPUT PLAN IS DC MONDAY
--- NOTE | 2023-03-15 12:06 | MHC.CM.PN ---
[facility] ([phone]) IS AWARE THAT PATIENT WILL TRANSFER TO [facility] TOMORROW AND THEY CAN FOLLOW UP THERE FOR DC NEEDS.
--- NOTE | 2023-03-15 12:23 | HO.VASCPN ---
Subjective Subjective Date of Service: 03/15/23 Patient reports: no new complaints and feels better Interval history: 62-year-old male just status post bilateral AKA. No issues in terms of his AKA. Pain well controlled. He did have some pauses on the monitor yesterday evening. He reports that he is asymptomatic from this. Now for postoperative follow-up. Physical Exam Vital Signs: Vital Signs: Last Vital Signs Temp 98.2 F 03/15/23 07:28 Pulse 79 03/15/23 07:28 Resp 18 03/15/23 07:28 BP 135/75 03/15/23 07:28 Pulse Ox 98 03/15/23 09:00 O2 Del Method Room Air 03/15/23 09:00 O2 Flow Rate 1 03/14/23 16:00 BMI result Body Mass Index 48.3 Const: General: cooperative, healthy appearing and no acute distress Orientation/consciousness: oriented to person, oriented to place and oriented to time HEENT: Head: Yes normal to inspection Neck: Carotids: no bruits Chest: Chest palpation & inspection: normal inspection of the chest Resp: Effort & Inspection: normal respiratory effort and able to speak in complete sentences Auscultation: clear to auscultation bilaterally Cardio: Rate: regular rate Heart sounds: S1 normal heart sound present and S2 normal heart sound present GI: Inspection: Yes normal to inspection Skin: Other: Amp dressing changed appears to be healing well. General skin exam: no rashes or lesions noted Wounds: no wounds Neuro: General: oriented to person, oriented to place, oriented to time and CN's II-XI intact bilaterally Extrem: General: Yes normal to inspection, Yes full ROM and Yes no clubbing, cyanosis or edema Psych: Appearance: grossly normal and well kempt Speech and movement: Normal speech and movement present Affect: normal affect Progress Note: A&P Assessment and plan (1) S/P AKA (above knee amputation): Status: Acute Assessment and Plan: Doing well from an AKA standpoint. Will await cardio evaluation. Already accepted for rehab placement. Should there be no other issues anticipate discharge as early as tomorrow. Once again awaiting Cardiology input Time Spent With Patient Time: Total time managing care of this patient today ____ minutes. Procedures Date of Service Date of Service: 03/15/23 Quality Stroke Does the patient have a stroke diagnosis?: No VTE Prior VTE?: No VTE Risk Level:: Surgical - moderate VTE Device Contraindication: Treatment Not Indicated VTE Drug Contraindication: N/A - Med Ordered
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
[2023-03-15] MEDS: Potassium Chloride ER 20 MEQ TAB.ER.PRT 40 MEQ PO (16:19)
[2023-03-15] MEDS: Atorvastatin Calcium 40 MG TABLET PO (20:06)
[2023-03-15] MEDS: Metoprolol Tartrate 5 MG/5 ML VIAL IVPUSH (21:14)
[2023-03-15] MEDS: Acetaminophen 325 MG TABLET 650 MG PO (22:27)
--- NOTE | 2023-03-15 22:35 | PM.EVENT ---
Event Note Date of Service: 03/15/23 Event Note: Patient with heart rate in the 150s persistent, despite 5 mg of IV metoprolol pushed. Patient also found to have a fever, a feeling chills. At this time will obtain chest x-ray, UA, resume his metoprolol at 100 mg b.i.d. per day team note. Time Spent With Patient Time: Total time managing care of this patient today ____ minutes.
[2023-03-15] MEDS: Metoprolol Tartrate 100 MG TABLET PO (23:12)
[2023-03-15 23:34] LABS: Appearance Urine Clear; Color Urine Yellow; Glucose Urine UA Negative (Negative); Leukocyte Esterase Urine Negative (Negative); Nitrite Urine Negative (Negative); Urine Blood Negative (Negative); Urine Ketones Negative (Negative); Urine Protein Negative (Neg-Trace)
[2023-03-15 23:56] LABS: Lactic Acid 2.5 mmol/L (0.5-2.0)
[2023-03-16 00:04] VITALS: BP 112/68; PULSE 104; RESP 19; TEMP 38.3; O2SAT 98
[2023-03-16] MEDS: Doxycycline Hyclate 100 MG in 0.9 % Sodium Chloride 250 ML 166.67 MG IV ×2 (00:10→09:32)
[2023-03-16 01:36] LABS: Reflex Lactate? Lactic Acid Added
[2023-03-16] MEDS: Lactated Ringers 1,000 ML 100 ML IVCONT (01:42)
[2023-03-16 02:51] LABS: ~Lactic Acid-LAB USE ONLY 1.2 mmol/L (0.5-2.0)
[2023-03-16 04:00] VITALS: BP 113/62; PULSE 81; RESP 18; TEMP 37.2; O2SAT 99
--- NOTE | 2023-03-16 04:20 | PC.NURSE ---
Approximately after 20:45 pts HR via teley monitor went up to the 140s-150s per [facility] [employer]YSICALLY IMP[employer]. This RN went to assess the pt and the pt had SOB, shakiness with no chest pain. Pt put on 2L of O2 via NC. Vitals were taken BP manually 159/79 but HR in the 140s. MD Gutiérrez notified of the situation. MD Gutiérrez ordered one time dose of 5mg of IV Metoprolol. Afterwards pt's HR went to the 90s to low 100s. Soon after pt's HR went back up to the 150s persistently, despite the given dose of the 5mg of IV Metoprolol. This time the pt had a oral temp of 100.4 with chills, SOB, and shakiness. MD Gutiérrez was notified of the new changes. Labs, chest Xray, and UA were ordered. This RN administered PRN Tylenol to pt at 22:27. MD Gutiérrez resume Metoprolol 100mg PO BID and ordered IVF and IV antiboitc after the pt had a critical lactic acid of 2.5. Currently the pt's HR has been in the 70s but dropped to the 30s around 03:45 but back to the 70s with Afib & occasional PVCs while sleeping. No symptoms at this moment. Will continue to monitor Pt's HR.
[2023-03-16 06:11] LABS: Hematocrit 27.9 % (42.0-52.0); Hemoglobin 8.2 g/dl (14.0-18.0); Mean Corpuscular HGB Conc 29.4 g/dl (31.0-36.0); Mean Corpuscular Hemoglobin 24.6 pg (27.0-33.0); Mean Corpuscular Volume 83.5 fL (80.0-98.0); Mean Platelet Volume 8.6 fL (9.4-12.4); Platelet Count 308 X10*3/uL (160-400); Red Blood Count 3.34 X10*6/uL (4.60-5.80); Red Cell Distribution Width 17.4 % (11.0-16.0); White Blood Count 13.2 X10*3/uL (4.8-10.8)
[2023-03-16 06:34] LABS: Anion Gap 12 (12-20); Blood Urea Nitrogen 6 mg/dL (9-16); Calcium 8.5 mg/dL (8.4-10.2); Carbon Dioxide 26 mmol/L (22-29); Chloride 104 mmol/L (96-108); Creatinine Clr Calc Pharmacy 196.7; Estimated Glomerular Filt Rate > 60; Glucose Random 114 mg/dL (60-115); Potassium 3.7 mmol/L (3.3-5.1); Sodium 138 mmol/L (135-145)
[2023-03-16 07:37] VITALS: BP 92/53; PULSE 66; RESP 16; TEMP 36.2; O2SAT 96
--- NOTE | 2023-03-16 08:55 | PM.DS ---
DS: Providers Provider Date of Service: 03/16/23 Date of admission: 03/13/23 06:03 Primary care physician: ALLI Dunn Consults: 03/13/23 09:46 Consult to Hospitalist Routine Comment: Consulting Provider: Hospitalist Reason For Exam: Medical management 03/14/23 11:18 Consult to Cardiology Routine Consulting [place] [facility] [facility] Reason for consultation: Inermittent episodes of bradycardia into the 30s DS: Diagnosis Discharge Diagnosis (1) Persistent atrial fibrillation: Status: Acute (2) S/P AKA (above knee amputation): Status: Acute (3) Bradycardia: Status: Acute DS: Summary Hospital Course Hospital Course: patient underwent left AKA. He had undergone prior right AKA. Postoperatively had no significant events in terms of his amputation. From a cardiac standpoint he did have some pauses which was experience. He was seen and evaluated by Cardiology. They recommended held Ng digoxin. Continue all other medications. He was stable for discharge. Status at Discharge Functional status at discharge: wheelchair bound Overall status at discharge: patient is back to baseline Time Spent with Patient Time attestation: Total time managing care of this patient today ____ minutes. Discharge coordination time: Greater than 30 minutes Quality: Safe Use of Opioids Does Pt have an Active Cancer Diagnosis on the Problem List?: No Quality: Stroke Does the patient have a stroke diagnosis?: No Physical Exam Vital Signs: Vital Signs: Last Vital Signs Temp 97.1 F 03/16/23 07:37 Pulse 66 03/16/23 07:37 Resp 16 03/16/23 07:37 BP 92/53 L 03/16/23 07:37 Pulse Ox 96 03/16/23 07:37 O2 Del Method Room Air 03/16/23 07:37 O2 Flow Rate 2 03/16/23 04:00 BMI result Body Mass Index 48.3 Const: General: cooperative, healthy appearing and no acute distress Orientation/consciousness: oriented to person, oriented to place and oriented to time HEENT: Head: Yes normal to inspection Neck: Carotids: no bruits Chest: Chest palpation & inspection: normal inspection of the chest Resp: Effort & Inspection: normal respiratory effort and able to speak in complete sentences Auscultation: clear to auscultation bilaterally Cardio: Rate: regular rate Heart sounds: S1 normal heart sound present and S2 normal heart sound present GI: Inspection: Yes normal to inspection Skin: Other: Bilateral stumps healing well. General skin exam: no rashes or lesions noted Wounds: no wounds Neuro: General: oriented to person, oriented to place, oriented to time and CN's II-XI intact bilaterally Extrem: General: Yes normal to inspection, Yes full ROM and Yes no clubbing, cyanosis or edema Psych: Appearance: grossly normal and well kempt Speech and movement: Normal speech and movement present Affect: normal affect DS: Data Data Completed and Pending Completed studies during hospitalization [Text1]: Procedures Detachment at Right Upper Leg, Mid, Open Approach (02/09/23) Detoxification Services for Substance Abuse Treatment (11/18/22) Insertion of Monitoring Device into Right Pulmonary Artery, Percutaneous Approach (07/24/21) Transfusion of Nonautologous Red Blood Cells into Peripheral Vein, Percutaneous Approach (02/09/23) Pending studies at discharge: Pending at discharge 03/13/23 08:20 Surgical [PTH] Routine Labs on day of discharge: Laboratory Results - last 24 hr 03/15/23 03/15/23 03/16/23 23:30 Unknown 02:35 WBC RBC Hgb Hct MCV MCH MCHC RDW Plt Count MPV Absolute Nucleated RBC Nucleated RBC % (auto) Sodium Potassium Chloride Carbon Dioxide Anion Gap BUN Creatinine Estim Creat Clear Calc Estimated GFR Random Glucose Lactic Acid 2.5 H* Lactic Acid F/U @ 2Hr 1.2 Calcium Urine Color Yellow Urine Appearance Clear Urine pH 6.0 Ur Specific [place] 1.020 Urine Protein Negative Urine Glucose (UA) Negative Urine Ketones Negative Urine Blood Negative Urine Nitrite Negative Ur Leukocyte Esterase Negative 03/16/23 03/16/23 06:01 06:02 WBC 13.2 H RBC 3.34 L Hgb 8.2 L Hct 27.9 L MCV 83.5 MCH 24.6 L MCHC 29.4 L RDW 17.4 H Plt Count 308 MPV 8.6 L Absolute Nucleated RBC 0.000 Nucleated RBC % (auto) 0.0 Sodium 138 Potassium 3.7 Chloride 104 Carbon Dioxide 26 Anion Gap 12 BUN 6 L Creatinine 0.52 Estim Creat Clear Calc 196.7 Estimated GFR > 60 Random Glucose 114 Lactic Acid Lactic Acid F/U @ 2Hr Calcium 8.5 D Urine Color Urine Appearance Urine pH Ur Specific [place] Urine Protein Urine Glucose (UA) Urine Ketones Urine Blood Urine Nitrite Ur Leukocyte Esterase Discharge Plan Discharge Anticipated Discharge Date/Time: 03/16/23 08:49 Patient Disposition: Xfer Inpatient Rehab Fac Discharge Diagnosis: Status post AKA Referrals: Antonino Ramsey FNP- [Primary Care Provider] - 1 Week Discharge Medications: New oxycodone-acetaminophen [Percocet] 5-325 mg tablet 1 tab PO Q8H PRN (Reason: pain) Qty: 10 0RF Rx Instructions: Partial Fill upon patient request. Continued (DME) power scooter See Rx Instructions .Route .MEDSUPPLY Qty: 1 0RF Rx Instructions: daily use atorvastatin 40 mg tablet 40 mg PO BEDTIME Qty: 90 0RF folic acid 1 mg tablet 1 mg PO DAILY 90 Days Qty: 90 0RF furosemide 20 mg tablet 20 mg PO DAILY Qty: 30 2RF magnesium oxide 400 mg (241.3 mg magnesium) tablet 400 mg PO BIDPC 30 Days Qty: 60 0RF metoprolol tartrate 100 mg tablet 100 mg PO BID 30 Days Qty: 60 0RF Protocol: Hold for SBP/HR < HOLD for SBP < : 90 HOLD for HR < : 60 thiamine mononitrate (vit B1) 100 mg tablet 100 mg PO DAILY Qty: 30 3RF amiodarone 200 mg tablet 200 mg PO DAILY 90 Days Qty: 90 1RF sodium chloride 1,000 mg tablet,soluble 1,000 mg PO TID Qty: 270 1RF omeprazole 40 mg capsule,delayed release(DR/EC) 40 mg PO DAILY@0630 90 Days Qty: 90 1RF Eliquis 5 mg tablet 5 mg PO BID acetaminophen [Athenol] 325 mg tablet 650 mg PO QID PRN (Reason: pain (scale score 1-3)) Qty: 10 0RF hydromorphone 2 mg Tablet 2 mg PO Q4H PRN (Reason: Pain, Severe (Pain Scale 7-10)) Qty: 30 0RF Rx Instructions: Partial Fill upon patient request. docusate sodium 100 mg Capsule 100 mg PO BID Qty: 30 0RF lactulose 20 gram/30 mL Solution 20 g PO DAILY 15 Days Qty: 450 0RF gabapentin 100 mg capsule 300 mg PO Q8H Discontinued digoxin 125 mcg (0.125 mg) Tablet 0.125 mg PO DAILY Qty: 30 0RF Discharge Orders: Discharge Order (Routine); Ordered 03/16/23 Ordered By: Tez Azul Activity on Discharge: As tolerated Stand Alone Forms: Patient Portal Discharge page Activity Restrictions/Additional Instructions: Wound care upon discharge: xeroform, 4x4 and Kerlix wrap to be changed daily. Please call Dr. Azul at [phone] for 2 week follow up for suture and staple removal Care Plan Goals: status post BKA - healed incision Health Concerns: bilateral BKA Plan of Treatment: insure wounds heal; return to ambulatory status Assessment: status post BKA
[2023-03-16 09:00] VITALS: O2SAT 96
--- NOTE | 2023-03-16 09:31 | MHC.CM.PN ---
DP: PT HAS BEEN MEDICALLY CLEARED FOR DC TO STR AT [facility]. LIAISON UPDATED. RN AWARE. BLS TRANSPORT BOOKED FOR 11 AM VIA [facility] ([employer] INSURANCE)
[2023-03-16] MEDS: 0.9 % Sodium Chloride Flush 3 ML SYRINGE IVFLUSH (09:33)
[2023-03-16] MEDS: Lactulose 20 GM/30 ML SOLUTION PO (09:33)
[2023-03-16] MEDS: Apixaban 5 MG TABLET PO (09:34)
[2023-03-16] MEDS: Thiamine HCL 100 MG TABLET PO (09:34)
[2023-03-16] MEDS: Amiodarone HCL 200 MG TABLET PO (09:34)
[2023-03-16] MEDS: Sodium Chloride Tab 1 GM TABLET PO (09:34)
[2023-03-16] MEDS: Folic Acid 1 MG TABLET PO (09:34)
[2023-03-16] MEDS: Docusate Sodium 100 MG CAPSULE PO (09:34)
[2023-03-16] MEDS: Magnesium Oxide 400 MG TABLET PO (09:34)
[2023-03-16 09:40] VITALS: BP 99/50; PULSE 60
--- NOTE | 2023-03-16 10:04 | PC.NURSE ---
Makayla Pittman aware of HR drop to 31 this am. Pt asymptomatic. Repeat vs 99/50 HR 60
[2023-03-16] MEDS: oxyCODONE HCl Immed Release 5 MG TABLET PO (10:38)
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
--- NOTE | 2023-03-26 02:24 | PC.NURSE ---
Pt medicated with PO Oxycodone 5mg at 06:05AM on 03/16/23 per pain to bilateral BKAs. Report given to oncoming RN regarding last dose of pain med given.
== END 2023-03-16 11:49 | DRG 305 ==
LOC: HO.SSSA 06:06 → HO.S3 11:30
PROVIDERS: Hospitalist; Internal Medicine; Admitting Provider Surgery Vascular Surgery; PCP Nurse Practitioner Family; Visit Provider Surgery Vascular Surgery
PROC: 0Y6D0Z2 Detachment at Left Upper Leg, Mid, Open Approach (ICD-10-PCS; CPT 27590; principal; 2023-03-13 07:30)
DX: L90.5 Scar conditions and fibrosis of skin (principal); I73.9 Peripheral vascular disease, unspecified; I42.9 Cardiomyopathy, unspecified; I49.5 Sick sinus syndrome; I50.22 Chronic systolic (congestive) heart failure; I48.19 Other persistent atrial fibrillation; I11.0 Hypertensive heart disease with heart failure; T24.092 Burn of unspecified degree of multiple sites of left lower limb, except ankle and foot; D64.9 Anemia, unspecified; L97.929 Non-pressure chronic ulcer of unspecified part of left lower leg with unspecified severity; I25.10 Atherosclerotic heart disease of native coronary artery without angina pectoris; E87.6 Hypokalemia; F17.210 Nicotine dependence, cigarettes, uncomplicated; K21.9 Gastro-esophageal reflux disease without esophagitis; X08.8XXS Exposure to other specified smoke, fire and flames, sequela; J44.9 Chronic obstructive pulmonary disease, unspecified; Z89.511 Acquired absence of right leg below knee; Z71.6 Tobacco abuse counseling; Z79.01 Long term (current) use of anticoagulants; Z79.899 Other long term (current) drug therapy
CPT/HCPCS: 36415; 71045; 80048; 81003; 83605; 85025; 85027; 85610; 85730; 86850; 86900; 86901; 87040; 88307; 88311; 97112; 97161; 97162; 97166; 97530; J0690; J1170; J1643; J2250; J2270; J2405; J2795

== ENCOUNTER 2023-03-21 10:27 | Emergency (ER) | payer OTHER, SELFPAY ==
[2023-03-21 10:40] VITALS: BP 102/63; BP 110/52; PULSE 75; PULSE 86; RESP 18; TEMP 37.2; O2SAT 98
--- NOTE | 2023-03-21 10:47 | PC.NURSE ---
surgical site does not appear infected. above site is swollen and taught but not discolored
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
[2023-03-21 12:14] VITALS: BP 98/61; PULSE 78; RESP 18; O2SAT 95
[2023-03-21 13:30] VITALS: BP 127/70; PULSE 55; RESP 16; TEMP 36.8; O2SAT 94
[2023-03-21 13:49] LABS: Alanine Aminotransferase < 5 U/L (0-40); Albumin Level 2.9 g/dL (3.5-5.0); Alkaline Phosphatase 63 U/L (39-117); Anion Gap 16 (12-20); Aspartate Amino Transferase 13 U/L (5-37); Bilirubin Direct 0.1 mg/dL (0.0-0.5); Bilirubin Total 0.4 mg/dL (0.0-1.0); Blood Urea Nitrogen 10 mg/dL (9-16); Calcium 8.8 mg/dL (8.4-10.2); Carbon Dioxide 21 mmol/L (22-29); Chloride 98 mmol/L (96-108); Estimated Glomerular Filt Rate > 60; Glucose Random 98 mg/dL (60-115); Magnesium 1.7 mg/dL (1.6-2.6); Potassium 4.7 mmol/L (3.3-5.1); Sodium 130 mmol/L (135-145); Total Protein 6.2 g/dL (6.5-8.0)
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
== END 2023-03-21 15:41 | disposition home or self-care (01) ==
PROVIDERS: Physician Assistant; Emergency Provider Emergency Medicine Emergency Medical Services; PCP Nurse Practitioner Family
DX: T87.89 Other complications of amputation stump (principal); Z89.612 Acquired absence of left leg above knee; E87.1 Hypo-osmolality and hyponatremia; I48.91 Unspecified atrial fibrillation; Z79.01 Long term (current) use of anticoagulants; I50.9 Heart failure, unspecified; I73.9 Peripheral vascular disease, unspecified; Z20.822 Contact with and (suspected) exposure to COVID-19; D64.9 Anemia, unspecified
CPT/HCPCS: 36415; 73552; 80048; 80076; 83735; 83880; 85025; 85610; 87635; 96374; 99284; J1170

== ENCOUNTER 2023-03-30 10:40 | Outpatient (AMB) | payer OTHER, SELFPAY ==
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
== END 2023-03-30 11:06 | disposition home or self-care (01) ==
LOC: HO.HVS 10:40
PROVIDERS: PCP Nurse Practitioner Family; Visit Provider Surgery Vascular Surgery
DX: Z89.619 Acquired absence of unspecified leg above knee (principal)
CPT/HCPCS: 99024

== ENCOUNTER → 2023-03-30 10:40 | Outpatient (BNVA) | payer OTHER, SELFPAY | PROVIDERS: PCP Nurse Practitioner Family; Visit Provider Surgery Vascular Surgery ==

== ENCOUNTER 2023-04-13 11:04 | Outpatient (AMB) | payer OTHER, SELFPAY ==
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
== END 2023-04-13 11:37 | disposition home or self-care (01) ==
PROVIDERS: PCP Nurse Practitioner Family; Visit Provider Surgery Vascular Surgery
DX: Z89.612 Acquired absence of left leg above knee (principal); Z89.611 Acquired absence of right leg above knee
CPT/HCPCS: 99024

== ENCOUNTER → 2023-04-13 11:04 | Outpatient (BNVA) | payer OTHER, SELFPAY | PROVIDERS: PCP Nurse Practitioner Family; Visit Provider Surgery Vascular Surgery ==

== ENCOUNTER 2023-04-24 23:03 | Emergency (ER) | payer OTHER, SELFPAY ==
--- NOTE | ~2023-04-24 | CT_ITS ---
EXAMINATION: CT ABDOMEN AND PELVIS WITHOUT CONTRAST CLINICAL INFORMATION: Left-sided flank pain. COMPARISON: None available. TECHNIQUE: Multidetector volumetric imaging was performed from the superior aspect of the liver through the pubic symphysis. Sagittal and coronal reformatted images were obtained on the technologist's workstation. This CT examination was performed using dose optimization techniques as appropriate, variously including the following: *Automated exposure control *Adjustment of mA and/or kV according to patient size (this includes techniques or standardized protocols for targeted exams where dose is matched to indication/reason for exam; i.e. extremities or head) *Use of iterative reconstruction technique DLP: 1559 mGy-cm FINDINGS: LUNG BASES: Heart size upper limits of normal. No infiltrates or effusions are seen. Patient appears to be anemic with cardiac blood pool measuring lower Hounsfield units than the myometrium. LIVER, GALLBLADDER, AND BILIARY TREE: The liver is normal in size, shape, and attenuation. No focal hepatic lesion or biliary ductal dilatation is present. The gallbladder is unremarkable with no evidence of radiopaque gallstones, gallbladder wall thickening, or obvious pericholecystic inflammatory changes. PANCREAS: Unremarkable. SPLEEN: Unremarkable. ADRENAL GLANDS: Unremarkable. KIDNEYS AND URETERS: The kidneys are normal in size, shape, and attenuation. Extensive vascular calcification is seen. No hydronephrosis, hydroureter, or definite renal collecting system calculi seen. No perinephric stranding. BLADDER: Unremarkable. GASTROINTESTINAL TRACT: A large stool burden is present throughout the colon. There is no evidence of bowel obstruction. No evidence of appendicitis. ABDOMINAL WALL: No significant hernia is appreciated. LYMPH NODES: No retroperitoneal lymphadenopathy. VASCULAR: Severe vascular disease is present with severe stenoses involving the right common iliac artery along with marked stenotic disease involving both common femoral arteries with probable occlusion. PELVIC VISCERA: Moderate BPH with calcifications. OSSEOUS STRUCTURES: Degenerative changes are present in the spine. There is grade 1 anterolisthesis of L4 upon L5. Multiple Schmorl's nodes seen at the L4 level. CT/CT abdomen pelvis wo IV con IMPRESSION: 1. A cause for the patient's left-sided flank pain has not been found. 2. Incidental note made of severe vascular disease with severe stenoses involving the right common iliac artery and both common femoral arteries . 3. Incidental note made of large stool burden throughout the colon, BPH and degenerative changes in the spine with grade 1 anterolisthesis of L4 upon L5. Fleischner guidelines were followed.
--- NOTE | ~2023-04-24 | CT_ITS ---
EXAMINATION: CT CERVICAL SPINE WITHOUT CONTRAST CLINICAL INFORMATION: Trauma. Pain. COMPARISON: None available. TECHNIQUE: Contiguous axial noncontrast CT scan images of the cervical spine obtained. Sagittal and coronal reformatted images also obtained. This CT examination was performed using dose optimization techniques as appropriate, variously including the following: *Automated exposure control *Adjustment of mA and/or kV according to patient size (this includes techniques or standardized protocols for targeted exams where dose is matched to indication/reason for exam; i.e. extremities or head) *Use of iterative reconstruction technique DLP: 405.72 mGy-cm FINDINGS: The alignment is within normal limits. There is moderate C5-C6 and C6-C7 disc degenerative change and mild disc degenerative change throughout the remaining cervical spine with loss of disc space, endplate change and posterior osteophytes associated with diffuse facet osteoarthritic hypertrophic change with multilevel spinal canal narrowing [id number] at C6-C7 and mild at the remaining levels and multilevel mild neuroforaminal narrowing. There is no fracture. There is significant carotid artery calcification. The visualized upper lung dillon are unremarkable. CT/CT cervical spine wo IV con IMPRESSION: 1. Diffuse cervical disc degenerative change. 2. No fracture or malalignment. Fleischner guidelines were followed.
--- NOTE | ~2023-04-24 | CT_ITS ---
EXAMINATION: CT HEAD WITHOUT CONTRAST CLINICAL INFORMATION: Fall. Trauma. COMPARISON: 11/18/2022 TECHNIQUE: Contiguous axial imaging was performed from the skull base to vertex without intravenous administration of contrast. This CT examination was performed using dose optimization techniques as appropriate, variously including the following: *Automated exposure control *Adjustment of mA and/or kV according to patient size (this includes techniques or standardized protocols for targeted exams where dose is matched to indication/reason for exam; i.e. extremities or head) *Use of iterative reconstruction technique DLP: 654.89 mGy-cm FINDINGS: There is cerebral volume loss with prominence of the lateral and the third ventricles. The cortical sulci are widened appropriately. The fourth ventricle and basal cisterns are normally outlined. There is mild bilateral periventricular and central white matter diminished attenuation. There is no acute territorial defect, hemorrhage or midline shift. The extra-axial spaces are unremarkable. Calvarium/scalp: The calvarium is intact. There is right frontal soft tissue swelling with an apparent laceration. Maxillofacial sinuses and mastoids: Clear as visualized. CT/CT head/brain wo IV con IMPRESSION: 1. Mild cerebral volume loss and mild bilateral periventricular and central white matter diminished attenuation which is nonspecific but likely represent microvascular disease. 2. No acute intracranial abnormality. 3. Right frontal soft tissue swelling with an apparent laceration.
[2023-04-24 23:07] VITALS: BP 132/82; BP 132/86; PULSE 102; PULSE 85; RESP 16; TEMP 36.6; O2SAT 96; O2SAT 98; BMI 53.6
[2023-04-24 23:20] VITALS: PULSE 97; RESP 15; O2SAT 98
[2023-04-24] MEDS: Albuterol/Iprat 2.5/0.5MG 3 ML AMPUL.NEB INHALE (23:35)
[2023-04-24 23:36] VITALS: PULSE 96; RESP 18; O2SAT 96
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
[2023-04-24] MEDS: Lidocaine HCl 1%/Epi 1:100,000 10 ML VIAL SUBCUT (23:39)
--- NOTE | 2023-04-25 01:44 | PC.NURSE ---
pt remains pleasant and cooperative throughout stay. requesting to go home, this RN educated patient that he can go home once his CT result is back, he is satisfied with said answer. reports no pain at this time.
--- NOTE | 2023-04-25 03:11 | MHC.EDTECH ---
Nidhi called at 0305 for a BLS transfer home per 's request, gave an ETA of 45Mins to an hour. RN aware
--- NOTE | 2023-04-25 04:22 | MHC.EDTECH ---
EMS arrived at 0420 for transport.
== END 2023-04-25 04:32 | disposition home or self-care (01) ==
PROVIDERS: Emergency Provider Emergency Medicine; PCP Nurse Practitioner Family
DX: S01.81XA Laceration without foreign body of other part of head, initial encounter (principal); W20.8XXA Other cause of strike by thrown, projected or falling object, initial encounter; Y93.9 Activity, unspecified; Y92.039 Unspecified place in apartment as the place of occurrence of the external cause; Y99.9 Unspecified external cause status; I48.21 Permanent atrial fibrillation; Z79.01 Long term (current) use of anticoagulants
CPT/HCPCS: 12013; 70450; 72125; 74176; 94640; 99284

== ENCOUNTER 2023-04-27 14:41 | Outpatient (AMB) | payer OTHER, SELFPAY ==
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
[2023-04-27 15:00] VITALS: BP 120/86; PULSE 73; O2SAT 100
== END 2023-04-27 16:04 | disposition home or self-care (01) ==
PROVIDERS: PCP Nurse Practitioner Family; Visit Provider Nurse Practitioner Family
DX: I48.91 Unspecified atrial fibrillation (principal); W19.XXXA Unspecified fall, initial encounter; F17.200 Nicotine dependence, unspecified, uncomplicated
CPT/HCPCS: 99213

== ENCOUNTER 2023-05-04 13:44 | Outpatient (AMB) | payer OTHER, SELFPAY ==
[2023-05-04 14:02] VITALS: BP 132/70; PULSE 52; O2SAT 98
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
== END 2023-05-04 14:38 | disposition home or self-care (01) ==
LOC: HO.HMGC 13:44
PROVIDERS: PCP Nurse Practitioner Family; Visit Provider Nurse Practitioner Family
DX: S01.91XA Laceration without foreign body of unspecified part of head, initial encounter (principal); Z48.02 Encounter for removal of sutures
CPT/HCPCS: 99213

== ENCOUNTER 2023-08-18 01:46 | Emergency (ER) | payer OTHER, SELFPAY ==
--- NOTE | ~2023-08-18 | CT_ITS ---
EXAMINATION: CT head/brain wo IV con CLINICAL INFORMATION: Reason for Exam fall on eliquis COMPARISON: CT head without contrast 04/24/2023 TECHNIQUE: Contiguous axial imaging was performed from the skull base to vertex without intravenous contrast. Sagittal and coronal reformatted images were obtained. This CT examination was performed using dose optimization techniques as appropriate, variously including the following: * Automated exposure control * Adjustment of mA and/or kV according to patient size (this includes techniques or standardized protocols for targeted exams where dose is matched to indication/reason for exam; i.e. extremities or head) Use of iterative reconstruction technique DLP: 650 mGy-cm FINDINGS: No acute osseous or soft tissue abnormality.. Small left mastoid fluid. Complete opacification of the left maxillary sinus. There is a defect in the cartilaginous nasal septum. There is no evidence of acute intracranial hemorrhage or territorial infarction. No abnormal mass effect or midline shift is seen. [place] to white matter differentiation is well preserved. No extra-axial fluid collections are identified. No hydrocephalus. Proportional prominence of the ventricles and sulcal spaces is consistent with mild volume loss. There is no abnormal attenuation within the brain parenchyma. CT/CT head/brain wo IV con IMPRESSION: No acute intracranial abnormality including hemorrhage, mass effect, hydrocephalus, or acute territorial edematous infarction. .
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
[2023-08-18 02:05] VITALS: BP 120/80; PULSE 67; O2SAT 97; BMI 75.9
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
[2023-08-18 02:26] VITALS: BP 132/76; PULSE 70; RESP 16; TEMP 36.6; O2SAT 95
--- NOTE | 2023-08-18 02:35 | PC.NURSE ---
lidocaine given to Dr. Scott per verbal order. at bedside to suture lac.
== END 2023-08-18 04:20 | disposition home or self-care (01) ==
PROVIDERS: Emergency Provider Student in an Organized Health Care Education/Training Program; PCP Nurse Practitioner Family
DX: S01.81XA Laceration without foreign body of other part of head, initial encounter (principal); R51.9 Headache, unspecified; W01.10XA Fall on same level from slipping, tripping and stumbling with subsequent striking against unspecified object, initial encounter; Y93.9 Activity, unspecified; Y92.9 Unspecified place or not applicable; Y99.9 Unspecified external cause status; F17.210 Nicotine dependence, cigarettes, uncomplicated; Z71.6 Tobacco abuse counseling; Z79.899 Other long term (current) drug therapy
CPT/HCPCS: 12011; 70450; 99284

== ENCOUNTER 2023-10-13 08:52 | Inpatient (IN) | payer OTHER, MEDICAID, SELFPAY ==
[2023-10-13] VITALS (10 sets, daily range): BP systolic 114–159; BP diastolic 69–93; PULSE 62–114; RESP 10–18; TEMP 35.7–37; O2SAT 92–99; BMI 51.9
--- NOTE | ~2023-10-13 | CT_ITS ---
EXAMINATION: Chest x-ray, CT brain and CT cervical spine without contrast. CLINICAL INDICATION: Altered mental status. Hallucinations. COMPARISON: CT brain 08/18/2023, CT cervical spine 04/24/2023 and chest x-ray 03/07/2023. TECHNIQUE: Chest 2 views. 5 mm thin axial and reformatted 2 mm thin sagittal and coronal images of brain were obtained. Subsequently axial 2 mm thin and reformatted 2 mm thin sagittal and coronal images of cervical spine were obtained. DLP [id number]. This CT examination was performed using dose optimization technique as appropriate, variously including the following: Automated exposure control Adjustment of MA and/or KV according to patient size(this includes techniques or standardized protocols for targeted exams where dose is matched to indication/reason for exam; extremities or head. Use of iterative reconstruction techniques. FINDINGS: Chest x-ray: The lungs are well-expanded and clear of acute process. Heart size and pulmonary vascularity is normal. No gross bony abnormality seen. BRAIN: There is no acute intra-axial, extra-axial bleed, masses or midline shift. There is no acute infarction in evolution. There is no edema. The salcedo to white matter differentiation is maintained normal. The lateral ventricles are symmetrical in size and configuration with moderate enlargement. No abnormality seen in the posterior fossa. Bone windows reveal no calvarial abnormality. There is no scalp soft tissue abnormality. Bilateral paranasal sinuses and mastoid air cells are well-aerated with minimal mucoperiosteal thickening bilateral maxillary sinuses. Suspect fatty density loose body adjacent to medial left cornea CERVICAL SPINE: There is mild straightening of cervical lordosis. The vertebral heights and alignment is normal. The craniovertebral junction and the C1-C2 alignment is normal. There is loss of C3-C4, C5-C6, C6-C7 disc heights with mild ventral and posterior spondylosis at the C5 3-4, C5-C6 and C6 S1 disc levels. No visible acute fracture, dislocation or subluxation seen. There is moderate to significant bilateral C3-C4 and mild C2-C3 facet joint arthropathy. Thyroid lobes are symmetrical and normal. The central trachea and the bronchi widely patent. The lung apices are clear. A 6 mm polyp or retention cyst seen in left lateral tracheal wall, axial image 97/3. There is a new finding compared to last exam 04/24/2023 The prevertebral and paravertebral soft tissues are normal. CT/CT cervical spine wo IV con IMPRESSION: Unremarkable chest exam. No acute intracranial process seen. There is minimal mucoperiosteal thickening of bilateral maxillary sinuses. No acute fracture, dislocation subluxation seen in cervical spine. There is degenerative disc disease and facet joint arthropathy as described above. Small polyp or cyst or debris left tracheal wall. It is new since 04/24/2023 exam
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
--- NOTE | 2023-10-13 09:11 | ECG_ITS ---
Test Reason : cp Blood Pressure : / mmHG Vent. Rate : 101 BPM Atrial Rate : 000 BPM P-R Int : 000 ms QRS Dur : 182 ms QT Int : 482 ms P-R-T Axes : 000 022 041 degrees QTc Int : 624 ms Atrial fibrillation with rapid ventricular response Right bundle branch block Inferior infarct (cited on or before 24-JUL-2021) Abnormal ECG When compared with ECG of 13-OCT-2023 09:25, No significant change was found Referred By: Jeri Sandhu Electronically Signed By:Mamadou Call
[2023-10-13 09:39] LABS: MANUAL DIFF FLAG NO
[2023-10-13 09:41] LABS: Basophils Percent Auto 0.7 % (0-2); NRBC Pct Auto 0.3 /100WBC (0.0-0.2)
--- NOTE | 2023-10-13 09:41 | PC.NURSE ---
pt to CT at this time.
[2023-10-13 09:45] LABS: Eosinophils Percent Auto 0.7 % (0-4); Hematocrit 31.7 % (42.0-52.0); Hemoglobin 10.6 g/dl (14.0-18.0); INTERNATIONAL NORM RATIO 1.5 (0.9-1.1); Imm Gran Abs Auto 0.03 X10*3/uL (0.00-0.03); Imm Gran Pct Auto 0.5 % (0.0-0.4); Lymphocytes Absolute Auto 1.3 X10*3/uL (1.2-4.9); Lymphocytes Percent Auto 21.9 % (20-40); Mean Corpuscular HGB Conc 33.4 g/dl (31.0-36.0); Mean Corpuscular Volume 89.8 fL (80.0-98.0); Monocytes Absolute Auto 0.7 X10*3/uL (0.1-1.2); Monocytes Percent Auto 11.8 % (2-11); Neutrophils Absolute Auto 3.7 x10*3/uL (2.0-8.3); Neutrophils Percent Auto 64.4 % (45-73); Prothrombin Time 18.1 SEC (11.1-13.3); Red Blood Count 3.53 X10*6/uL (4.60-5.80); Red Cell Distribution Width 16.9 % (11.0-16.0); White Blood Count 5.8 X10*3/uL (4.8-10.8)
[2023-10-13 10:04] LABS: Lactic Acid 1.4 mmol/L (0.5-2.0)
[2023-10-13 10:06] LABS: Mean Platelet Volume 10.7 fL (9.4-12.4); Platelet Count 120 X10*3/uL (160-400)
[2023-10-13 10:15] LABS: Alanine Aminotransferase 14 U/L (0-40); Albumin Level 3.8 g/dL (3.5-5.0); Alkaline Phosphatase 103 U/L (39-117); Anion Gap 18 (12-20); Aspartate Amino Transferase 60 U/L (5-37); Bilirubin Total 1.4 mg/dL (0.0-1.0); Blood Urea Nitrogen 14 mg/dL (9-16); Calcium 8.4 mg/dL (8.4-10.2); Carbon Dioxide 31 mmol/L (22-29); Chloride 93 mmol/L (96-108); Creatinine Clr Calc Pharmacy 38.5; Estimated Glomerular Filt Rate > 60; Glucose Random 93 mg/dL (60-115); Potassium 2.9 mmol/L (3.3-5.1); Sodium 139 mmol/L (135-145); Total Protein 7.2 g/dL (6.5-8.0); Troponin-I High Sensitivity 16.2 ng/L (<3.5-35.0)
[2023-10-13 10:16] LABS: Ethanol < 10 mg/dL; Magnesium 0.9 mg/dL (1.6-2.6)
[2023-10-13 10:19] LABS: IDNOW Serial# 08D9AD1C; IDNOW Serial# 152EDE1D; Influenza A Negative (Negative); Influenza B2 Negative (Negative)
[2023-10-13 10:21] LABS: COVID-19 Test Negative (Negative)
[2023-10-13] MEDS: Thiamine HCL 200 MG in 0.9 % Sodium Chloride 100 ML 204 MG IV ×2 (10:22→18:00)
[2023-10-13] MEDS: Magnesium Sulfate/H2O 2 GM/50 ML PIGGYBACK IV ×2 (10:22→14:13)
[2023-10-13] MEDS: Potassium Chloride ER 20 MEQ TAB.ER.PRT 40 MEQ PO (10:30)
[2023-10-13] MEDS: Potassium Chloride/H20 10 MEQ/100 ML PIGGYBACK 100 MEQ IV ×3 (10:30→22:39)
--- NOTE | 2023-10-13 10:58 | PC.NURSE ---
new 20gIV placed in the right AC - medications administered per provider order. respirations remain even and unlabored. resting comfortably in no apparent distress. call farfan placed within reach.
[2023-10-13 11:00] LABS: B Type Natriuretic Peptide 157 pg/mL (<100)
--- NOTE | 2023-10-13 11:21 | PC.NURSE ---
labs obtained/sent to lab.
[2023-10-13 11:28] LABS: Venous Blood Gas Refer to POC result
[2023-10-13 11:33] LABS: VBG Base Excess 17.8 mmol/L; VBG HCO3 39 mmol/L (22-26); VBG pCO2 35 mmHg; VBG pH 7.65 (7.32-7.43); VBG pO2 83 mmHg
[2023-10-13 11:43] LABS: Ammonia 31 umol/L (13-55)
[2023-10-13] MEDS: 0.9 % Sodium Chloride 500 ML 999 ML IV (11:54)
--- NOTE | 2023-10-13 11:54 | PC.NURSE ---
IVF/medication administered per provider order. pt seemingly lethargic. responsive to physical/verbal stimuli. respirations remain even and unlabored. call farfan placed within reach.
--- NOTE | 2023-10-13 12:50 | PC.NURSE ---
urine obtained/sent to lab.
--- NOTE | 2023-10-13 13:00 | PHA.MEDREC ---
Pharmacy Consult ? Medication Reconciliation Pharmacy has completed the medication reconciliation. Patient is AMS. Patient has a RATOPRINTER per notes but there is no contact number. Used medical records and pharmacy claims.
[2023-10-13 13:01] LABS: Appearance Urine Cloudy; Color Urine Dark Yellow; Glucose Urine UA Negative (Negative); Leukocyte Esterase Urine Trace (Negative); Nitrite Urine Negative (Negative); UMIC TRIGGER UACC YES; Urine Blood Negative (Negative); Urine Ketones Trace mg/dL (Negative); Urine Protein 30 (1+) mg/dL (Neg-Trace)
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
[2023-10-13 13:11] LABS: Bacteria Urine None Seen (None Seen); Granular Casts Urine Present; RBC Urine 0-2 /HPF (0-2); WBC Urine 0-5 /HPF (0-5)
--- NOTE | 2023-10-13 13:27 | PC.NURSE ---
pt speaking w/ admitting provider at this time.
[2023-10-13 13:44] LABS: Amphetamine Screen Urine Not Detected (Not Detect)
[2023-10-13 13:45] LABS: Barbiturates, Urine Not Detected (Not Detect); Benzodiazepines Screen Urine Not Detected (Not Detect); Cannabinoid Screen Urine POSITIVE (Not Detect); Cocaine Screen Urine Not Detected (Not Detect); Fentanyl, urine Not Detected (Not Detect); Opiate Screen Urine Not Detected (Not Detect); Phencyclidine Screen Urine Not Detected (Not Detect)
[2023-10-13] MEDS: Gabapentin 100 MG CAPSULE PO ×2 (14:12→22:43)
--- NOTE | 2023-10-13 14:18 | PC.NURSE ---
vss and up to date. pt remains nsr on the rn cardiac rehab. pt denies pain. pt seemingly lethargic/still sleepy at this time. easily arousable to verbal stimuli. medication administered per provider order. pt aware of plan of care at this time in regards to being admitted. respirations remain even and unlabored. call farfan placed within reach.
[2023-10-13] MEDS: Albuterol/Iprat 2.5/0.5MG 3 ML AMPUL.NEB INHALE ×2 (15:16→20:38)
--- NOTE | 2023-10-13 15:21 | PC.NURSE ---
pt receiving breathing treatment via RT at this time.
--- NOTE | 2023-10-13 15:23 | MHC.EDTECH ---
This pct assumed care of pt at 1500 ,vitals taken ,Patient was reposition and boosted up in bed .
[2023-10-13] MEDS: 0.9 % Sodium Chloride Flush 3 ML SYRINGE IVFLUSH (16:14)
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
--- NOTE | 2023-10-13 16:38 | PM.EVENT ---
Event Note Date of Service: 10/13/23 Event Note: After psych consultation will treat patient's hallucinations as possibly stemming from alcohol withdrawal. Will start on phenobarb protocol and give thiamine 200 mg IV Q 8. Time Spent With Patient Time: Total time managing care of this patient today ____ minutes.
--- NOTE | 2023-10-13 17:22 | HE.PHANOTE ---
Phenobarbital Dose - IBW w/ amputations Patient is a bilateral leg amputate, therefore current IBW had to be calculated. Prior to amputation, patient was 5 ft 7 in. His IBW at the time would be 148 pounds. Each leg is about 16% of the body weight. The which is subtracted from patient previous IBW prior to amputation. 148 * 2(.16) = 47.36 148-47.36 = 100.64 pounds = 45.7 kg IBW used to calculate phenobarbital dose is 46 kg
[2023-10-13] MEDS: Magnesium Oxide 400 MG TABLET PO (18:00)
[2023-10-13] MEDS: PHENobarbitaL sodium 130 MG/ML IM ONCE 148.2 MG IM (18:01)
--- NOTE | 2023-10-13 18:07 | PC.NURSE ---
pt medicated per provider order. updated CIWA = 6. pt repositioned upright eating dinner at this time. respirations remain even and unlabored. call farfan placed within reach.
--- NOTE | 2023-10-13 19:00 | ECG_ITS ---
Test Reason : SOB Blood Pressure : / mmHG Vent. Rate : 092 BPM Atrial Rate : 081 BPM P-R Int : 000 ms QRS Dur : 198 ms QT Int : 504 ms P-R-T Axes : 000 022 060 degrees QTc Int : 623 ms Atrial fibrillation Right bundle branch block Inferior infarct (cited on or before 24-JUL-2021) Abnormal ECG When compared with ECG of 13-OCT-2023 09:26, No significant changes seen Referred By: Rosibel Sena Electronically Signed By:Mamadou Call
[2023-10-13 19:48] LABS: Anion Gap 16 (12-20); Blood Urea Nitrogen 11 mg/dL (9-16); Calcium 8.2 mg/dL (8.4-10.2); Carbon Dioxide 30 mmol/L (22-29); Chloride 98 mmol/L (96-108); Creatinine Clr Calc Pharmacy 46.4; Estimated Glomerular Filt Rate > 60; Glucose Random 102 mg/dL (60-115); Potassium 2.7 mmol/L (3.3-5.1); Sodium 141 mmol/L (135-145)
[2023-10-13] MEDS: Docusate Sodium 100 MG CAPSULE PO (22:43)
[2023-10-13] MEDS: Metoprolol Tartrate 100 MG TABLET PO (22:43)
[2023-10-13] MEDS: Apixaban 5 MG TABLET PO (22:43)
[2023-10-13] MEDS: Atorvastatin Calcium 40 MG TABLET PO (22:44)
[2023-10-13] MEDS: Potassium Chloride Packet 20 MEQ PACKET 40 MEQ PO (22:44)
[2023-10-13] MEDS: PHENobarbitaL sodium 130 MG/ML VIAL IM Q3Hx2 110.4 MG IM (23:25)
--- NOTE | 2023-10-14 | ECG_ITS ---
Test Reason : prolonged qtc Blood Pressure : / mmHG Vent. Rate : 078 BPM Atrial Rate : 000 BPM P-R Int : 000 ms QRS Dur : 184 ms QT Int : 474 ms P-R-T Axes : 000 -39 034 degrees QTc Int : 540 ms Atrial fibrillation Left axis deviation Right bundle branch block Cannot rule out Inferior infarct (cited on or before 24-JUL-2021) Abnormal ECG When compared with ECG of 13-OCT-2023 19:18, QT has shortened Referred By: Ivy Bull Electronically Signed By:Mamadou Call
[2023-10-14] MEDS: Potassium Chloride/H20 10 MEQ/100 ML PIGGYBACK 100 MEQ IV (00:38)
[2023-10-14] MEDS: 0.9 % Sodium Chloride Flush 3 ML SYRINGE IVFLUSH ×3 (00:38→16:01)
[2023-10-14] MEDS: Thiamine HCL 200 MG in 0.9 % Sodium Chloride 100 ML 204 MG IV ×2 (00:48→08:17)
[2023-10-14] MEDS: Magnesium Sulfate/H2O 2 GM/50 ML PIGGYBACK IV (02:15)
[2023-10-14] MEDS: Potassium Chloride Packet 20 MEQ PACKET 40 MEQ PO (02:17)
[2023-10-14] MEDS: PHENobarbitaL sodium 130 MG/ML VIAL IM Q3Hx2 110.4 MG IM (02:18)
[2023-10-14 02:50] VITALS: BMI 49.5
[2023-10-14 03:10] VITALS: BP 140/96; PULSE 80; RESP 18; TEMP 36.7; O2SAT 92
[2023-10-14] MEDS: Omeprazole 40 MG CAPSULE.DR PO (06:25)
[2023-10-14 07:06] LABS: Hematocrit 29.4 % (42.0-52.0); Hemoglobin 9.4 g/dl (14.0-18.0); Mean Corpuscular Hemoglobin 30.1 pg (27.0-33.0); Mean Corpuscular Volume 94.2 fL (80.0-98.0); Mean Platelet Volume 10.3 fL (9.4-12.4); NRBC Pct Auto 0.5 /100WBC (0.0-0.2); Platelet Count 127 X10*3/uL (160-400); Red Blood Count 3.12 X10*6/uL (4.60-5.80); Red Cell Distribution Width 17.7 % (11.0-16.0); White Blood Count 5.8 X10*3/uL (4.8-10.8)
[2023-10-14 07:46] LABS: Anion Gap 14 (12-20); Blood Urea Nitrogen 10 mg/dL (9-16); Calcium 8.4 mg/dL (8.4-10.2); Carbon Dioxide 28 mmol/L (22-29); Chloride 102 mmol/L (96-108); Creatinine Clr Calc Pharmacy 44.7; Estimated Glomerular Filt Rate > 60; Glucose Random 86 mg/dL (60-115); Magnesium 2.2 mg/dL (1.6-2.6); Potassium 3.9 mmol/L (3.3-5.1); Sodium 140 mmol/L (135-145)
[2023-10-14 08:00] VITALS: BP 139/89; PULSE 78; RESP 18; TEMP 36.6; O2SAT 97
[2023-10-14] MEDS: Albuterol/Iprat 2.5/0.5MG 3 ML AMPUL.NEB INHALE ×3 (08:03→15:39)
[2023-10-14 08:05] VITALS: PULSE 73; RESP 16; O2SAT 100
[2023-10-14] MEDS: Folic Acid 1 MG TABLET PO (08:17)
[2023-10-14] MEDS: Magnesium Oxide 400 MG TABLET PO (08:17)
[2023-10-14] MEDS: Amiodarone HCL 200 MG TABLET PO (08:17)
[2023-10-14] MEDS: Apixaban 5 MG TABLET PO (08:17)
[2023-10-14] MEDS: Metoprolol Tartrate 100 MG TABLET PO (08:17)
[2023-10-14] MEDS: PHENobarbitaL 30 MG TABLET PO (08:17)
[2023-10-14] MEDS: Gabapentin 100 MG CAPSULE PO ×2 (08:17→16:00)
[2023-10-14] MEDS: Thiamine HCL 100 MG TABLET PO (08:17)
--- NOTE | 2023-10-14 10:36 | P.DS_ITS ---
DS: Providers Provider Date of Service: 10/14/23 Date of admission: 10/13/23 14:04 Primary care physician: ALLI Dunn Consults: 10/13/23 13:52 Consult to Psychiatry Routine Consulting Provider: Psych Covering Reason for consultation: Pt experiencing vivid visual and auditory hallucinations DS: Diagnosis Discharge Diagnosis (1) Alcoholic psychosis with hallucinosis: Status: Acute DS: Summary Hospital Course Hospital Course: HPI: Pt is a 62-year-old male with a PMH significant for?AFib on Eliquis, HFrEF, peripheral artery disease, COPD not on home oxygen, HTN, HLD, alcohol use disorder, and bilateral AKA who presents to the ED after being found on the floor of his apartment by his SOFT TILE SETTER this morning, reporting visual hallucinations of people in his room. Patient reportedly has a SOFT TILE SETTER visit his home on Tuesdays and Fridays, and SOFT TILE SETTER this morning called 911 after finding patient on the floor in his kitchen in a pile of feces. Pt vague about details of his fall. Claims he slid out of his wheelchair and fell into dog shit . Pt currently denies any acute medical complaints. States he feels ?fine? and ?good?. Reports chronic diffuse musculoskeletal pain in the mornings that normally dissipates with activity. Currently denies any musculoskeletal pain at rest or with movement. Patient reports visual and auditory hallucinations last night and this morning. States he woke up and found a lot of ?stuff going on? in his apartment: People were mingling around, visiting, and having cocktails. Reports some of these people were doctors who were discussing his medical conditions and diagnoses. States he was getting upset because they were partying, eating his food, and would not leave when he told them to. Reports he even grabbed some of them by the collar but they ignored him. Patient states he gets these hallucinations ?every 8 months or so?. Patient apparently realizes these are hallucinations, but at the time is unable to make this distinction and they are so vivid he has called up friends and the police to help him get rid of the people in his apartment. Denies headache, acute vision changes. No chest pain/pressure, palpitations. Denies fever, chills, N/V, diarrhea. Pt reports eating and drinking normally. Last drank alcohol 1 1/2 weeks ago. In the ED pt's vital signs WNL. Labs were significant for metabolic alkalosis with VB pH of 7.65 with bicarb of 39, potassium of 2.9, magnesium 0.9, bilirubin 1.4, AST 60, and CPK 690. No leukocytosis. Stable normocytic anemia of 10.6/31.7. Ammonia 31. BNP mildly elevated at 157. UA negative for UTI. Ethyl alcohol is negative. Tox screen pending. Patient tested negative for COVID, influenza type a and B. CXR negative for acute cardiopulmonary process. CT?of head negative for acute intracranial process. CT of cervical spine negative for acute fracture, dislocation, or subluxation. Does show degenerative disc disease and facet joint arthroplasty. EKG demonstrated AFib with RVR 1, RBBB, prolonged QTc of 624. Pt was treated with thiamine, magnesium 2 g IV, potassium chloride 40 mEq p.o. and 20 mEq IV, and IVF. Pt will be admitted to the hospital for hyponatremia and hypomagnesemia. Hospital course: Patient was admitted and serum potassium and serum magnesium repleted. No GI losses during hospital course. Psychiatry was consulted for evaluation of hallucinations. It was thought that the hallucinations were due to alcoholic psychosis. Patient was initiated on phenobarb protocol. No hallucinations prior to discharge. Serum electrolytes within normal limits prior to discharge. Patient is hemodynamically stable prior to discharge. Medications continued for chronic medical conditions throughout hospitalization. Patient to follow-up with PCP within 1 week for close monitoring of serum electrolytes and for repeat EKG for monitoring of QTC. Status at Discharge Overall status at discharge: patient is back to baseline Time Attestation Discharge coordination time: Less than 30 minutes Quality: Safe Use of Opioids Does Pt have an Active Cancer Diagnosis on the Problem List?: No Quality: Stroke Does the patient have a stroke diagnosis?: No Physical Exam Vital Signs: Vital Signs: Last Vital Signs Temp 97.9 F 10/14/23 08:00 Pulse 73 10/14/23 08:05 Resp 16 10/14/23 08:05 BP 139/89 10/14/23 08:00 Pulse Ox 97 10/14/23 08:00 O2 Del Method Room Air 10/14/23 08:00 BMI result Body Mass Index 49.5 Middle-aged male lying in bed in no distress Neck supple, no JVD Regular rate and rhythm, S1-S2 heard Regular breath sounds bilaterally, no wheezing or crackles appreciated Abdomen soft nontender, no guarding, no rigidity Patient is awake, alert and oriented to self, place, time and person ; no focal motor deficit Psych: Normal mood Bilateral AKA DS: Data Data Completed and Pending Completed studies during hospitalization [Text1]: Procedures Detachment at Left Upper Leg, Mid, Open Approach (03/13/23) Detachment at Right Upper Leg, Mid, Open Approach (02/09/23) Detoxification Services for Substance Abuse Treatment (11/18/22) Insertion of Monitoring Device into Right Pulmonary Artery, Percutaneous Approach (07/24/21) Transfusion of Nonautologous Red Blood Cells into Peripheral Vein, Percutaneous Approach (02/09/23) Labs on day of discharge: Laboratory Results - last 24 hr 10/13/23 10/13/23 10/13/23 09:27 11:20 11:24 WBC RBC Hgb Hct MCV MCH MCHC RDW Plt Count MPV Absolute Nucleated RBC Nucleated RBC % (auto) VBG pH 7.65 H* VBG pCO2 35 VBG pO2 83 VBG HCO3 39 H VBG O2 Saturation 100.0 VBG Base Excess 17.8 Sodium Potassium Chloride Carbon Dioxide Anion Gap BUN Creatinine Estim Creat Clear Calc Estimated GFR Random Glucose Calcium Magnesium Ammonia 31 Total Creatine Kinase 690 H B-Natriuretic Peptide 157 H Urine Color Urine Appearance Urine pH Ur Specific Thayer Urine Protein Urine Glucose (UA) Urine Ketones Urine Blood Urine Nitrite Ur Leukocyte Esterase Urine RBC Urine WBC Ur Squamous Epith Cells Urine Bacteria Hyaline Casts Granular Casts Urine Opiates Screen Urine Fentanyl Screen Ur Barbiturates Screen Ur Phencyclidine Scrn Ur Amphetamines Screen U Benzodiazepines Scrn Urine Cocaine Screen U Marijuana (THC) Screen 10/13/23 10/13/23 10/14/23 12:51 18:52 06:47 WBC 5.8 RBC 3.12 L Hgb 9.4 L Hct 29.4 L MCV 94.2 MCH 30.1 MCHC 32.0 RDW 17.7 H Plt Count 127 L MPV 10.3 Absolute Nucleated RBC 0.030 H Nucleated RBC % (auto) 0.5 H VBG pH VBG pCO2 VBG pO2 VBG HCO3 VBG O2 Saturation VBG Base Excess Sodium 141 140 Potassium 2.7 L* 3.9 D Chloride 98 102 Carbon Dioxide 30 H 28 Anion Gap 16 14 BUN 11 10 Creatinine 0.78 0.78 Estim Creat Clear Calc 46.4 44.7 Estimated GFR > 60 > 60 Random Glucose 102 86 Calcium 8.2 L 8.4 Magnesium 2.0 2.2 Ammonia Total Creatine Kinase B-Natriuretic Peptide Urine Color Dark Yellow Urine Appearance Cloudy Urine pH 6.0 Ur Specific Thayer 1.020 Urine Protein 30 (1+) H Urine Glucose (UA) Negative Urine Ketones Trace Urine Blood Negative Urine Nitrite Negative Ur Leukocyte Esterase Trace H Urine RBC 0-2 Urine WBC 0-5 Ur Squamous Epith Cells 6-10 Urine Bacteria None Seen Hyaline Casts 3-5 Granular Casts Present Urine Opiates Screen Not Detected Urine Fentanyl Screen Not Detected Ur Barbiturates Screen Not Detected Ur Phencyclidine Scrn Not Detected Ur Amphetamines Screen Not Detected U Benzodiazepines Scrn Not Detected Urine Cocaine Screen Not Detected U Marijuana (THC) Screen POSITIVE H 10/14/23 08:05 WBC RBC Hgb Hct MCV MCH MCHC RDW Plt Count MPV Absolute Nucleated RBC Nucleated RBC % (auto) VBG pH VBG pCO2 VBG pO2 VBG HCO3 VBG O2 Saturation VBG Base Excess Sodium Potassium Chloride Carbon Dioxide Anion Gap BUN Creatinine Estim Creat Clear Calc Estimated GFR Random Glucose Calcium Magnesium Ammonia Total Creatine Kinase 577 H B-Natriuretic Peptide Urine Color Urine Appearance Urine pH Ur Specific Thayer Urine Protein Urine Glucose (UA) Urine Ketones Urine Blood Urine Nitrite Ur Leukocyte Esterase Urine RBC Urine WBC Ur Squamous Epith Cells Urine Bacteria Hyaline Casts Granular Casts Urine Opiates Screen Urine Fentanyl Screen Ur Barbiturates Screen Ur Phencyclidine Scrn Ur Amphetamines Screen U Benzodiazepines Scrn Urine Cocaine Screen U Marijuana (THC) Screen Imaging Chest x-ray: Radiologist's impression: ITS Impressions Chest X-Ray 10/13/23 10:00 IMPRESSION: Unremarkable chest exam. No acute intracranial process seen. There is minimal mucoperiosteal thickening of bilateral maxillary sinuses. No acute fracture, dislocation subluxation seen in cervical spine. There is degenerative disc disease and facet joint arthropathy as described above. Small polyp or cyst or debris left tracheal wall. It is new since 04/24/[address] 10/13/23 10:09 IMPRESSION: Unremarkable chest exam. No acute intracranial process seen. There is minimal mucoperiosteal thickening of bilateral maxillary sinuses. No acute fracture, dislocation subluxation seen in cervical spine. There is degenerative disc disease and facet joint arthropathy as described above. Small polyp or cyst or debris left tracheal wall. It is new since 04/24/[address] 10/13/23 10:09 IMPRESSION: Unremarkable chest exam. No acute intracranial process seen. There is minimal mucoperiosteal thickening of bilateral maxillary sinuses. No acute fracture, dislocation subluxation seen in cervical spine. There is degenerative disc disease and facet joint arthropathy as described above. Small polyp or cyst or debris left tracheal wall. It is new since 04/24/2023 exam Discharge Plan Discharge Anticipated Discharge Date/Time: 10/14/23 10:32 Patient Disposition: Home, Self-Care Discharge Diagnosis: Alcoholic psychosis with hallucinations Hypokalemia Hypomagnesemia Referrals: Antonino Ramsey FNP-BC [Primary Care Provider] - 1 Week Discharge Medications: Continued (DME) power scooter See Rx Instructions .Route .MEDSUPPLY Qty: 1 0RF Rx Instructions: daily use thiamine mononitrate (vit B1) 100 mg tablet 100 mg PO DAILY Qty: 30 3RF sodium chloride 1,000 mg tablet,soluble 1,000 mg PO TID Qty: 270 1RF amiodarone 200 mg tablet 200 mg PO DAILY 90 Days Qty: 90 1RF folic acid 1 mg tablet 1 mg PO DAILY 90 Days Qty: 90 1RF gabapentin 100 mg capsule 100 mg PO TID 30 Days Qty: 90 1RF metoprolol tartrate 100 mg tablet 100 mg PO BID 90 Days Qty: 180 3RF Protocol: Hold for SBP/HR < HOLD for SBP < : 90 HOLD for HR < : 60 Rx Instructions: future refills from Cardiology magnesium oxide 400 mg (241.3 mg magnesium) tablet 400 mg PO BIDPC 30 Days Qty: 60 0RF atorvastatin 40 mg tablet 40 mg PO BEDTIME Qty: 90 0RF Eliquis 5 mg tablet 5 mg PO BID Qty: 180 3RF furosemide 20 mg tablet 20 mg PO DAILY Qty: 90 3RF omeprazole 40 mg capsule,delayed release(DR/EC) 40 mg PO DAILY@0630 90 Days Qty: 90 1RF acetaminophen [Athenol] 325 mg tablet 650 mg PO QID PRN (Reason: pain (scale score 1-3)) Qty: 10 0RF docusate sodium 100 mg Capsule 100 mg PO BID Qty: 30 0RF lactulose 20 gram/30 mL Solution 20 g PO DAILY 15 Days Qty: 450 0RF Discharge Orders: Discharge Order (Routine); Ordered 10/14/23 Ordered By: Juan David Bull Diet: Low salt diet Activity on Discharge: As tolerated Stand Alone Forms: Patient Portal Discharge page Care Plan Goals: Follow-up with PCP within 1 week for close monitoring of electrolytes. Repeat EKG at PCP's office for monitoring of QTC Health Concerns: Alcohol use disorder Congestive heart failure with preserved ejection fraction Prolonged QTC Persistent atrial fibrillation Plan of Treatment: Cessation of alcohol Compliance with home p.o. medications and PCP visits Assessment: As above
[2023-10-14 11:27] VITALS: PULSE 78; RESP 15; O2SAT 97
[2023-10-14 11:50] VITALS: BP 122/94; PULSE 89; RESP 18; TEMP 36.6; O2SAT 98
[2023-10-14 15:41] VITALS: BP 132/82; PULSE 76; PULSE 89; RESP 17; RESP 18; TEMP 36.8; O2SAT 100; O2SAT 98
--- NOTE | 2023-10-14 15:57 | MHC.CM.PN ---
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 HE SAYS IT HAS BEEN A YEAR. CM LEFT A FOR PTS PCP OFFICE REQUESTING THEY FOLLOW UP ON THIS ISSUE. PT HAS A HCP AND MOLST ON FILE PCP: SIXTO LEVY PT WILL DC HOME TODAY VIA [facility] AT 1700 HOURS
== END 2023-10-14 18:08 | disposition home or self-care (01) | DRG 775 ==
LOC: HO.ED 12:37 → HO.EDOVER 14:05 → HO.IMC 19:31
PROVIDERS: Internal Medicine; Registered Nurse Emergency; Admitting Provider Student in an Organized Health Care Education/Training Program; Emergency Provider Emergency Medicine; PCP Nurse Practitioner Family; Visit Provider Student in an Organized Health Care Education/Training Program
DX: F10.231 Alcohol dependence with withdrawal delirium (principal); E87.3 Alkalosis; I50.22 Chronic systolic (congestive) heart failure; F17.210 Nicotine dependence, cigarettes, uncomplicated; I48.19 Other persistent atrial fibrillation; Z89.611 Acquired absence of right leg above knee; E83.42 Hypomagnesemia; E87.6 Hypokalemia; J44.9 Chronic obstructive pulmonary disease, unspecified; R94.31 Abnormal electrocardiogram [ECG] [EKG]; I25.10 Atherosclerotic heart disease of native coronary artery without angina pectoris; Z20.822 Contact with and (suspected) exposure to COVID-19; Z89.612 Acquired absence of left leg above knee; Z71.6 Tobacco abuse counseling; Z79.01 Long term (current) use of anticoagulants; Z79.899 Other long term (current) drug therapy
CPT/HCPCS: 36415; 70450; 71046; 72125; 80048; 80053; 80307; 81001; 81003; 82140; 82550; 82803; 83605; 83735; 83880; 84484; 85025; 85027; 85610; 87040; 87502; 87635; 93005; 94640; 99285; J2560; J3411; J3475; J3480

== ENCOUNTER → 2023-10-13 09:11 | Outpatient (BNV) | payer OTHER, SELFPAY | PROVIDERS: Admitting Provider Student in an Organized Health Care Education/Training Program; Emergency Provider Emergency Medicine; PCP Nurse Practitioner Family; Visit Provider Internal Medicine Cardiovascular Disease | DX: I48.91 Unspecified atrial fibrillation (principal) | CPT/HCPCS: 93010 ==

== ENCOUNTER 2023-10-13 14:04 | Outpatient (BNV) | payer OTHER, SELFPAY | END 2023-10-14 12:11 | PROVIDERS: Admitting Provider Student in an Organized Health Care Education/Training Program; Emergency Provider Emergency Medicine; PCP Nurse Practitioner Family; Visit Provider Internal Medicine Cardiovascular Disease | DX: I48.91 Unspecified atrial fibrillation (principal) | CPT/HCPCS: 93010 ==

== ENCOUNTER → 2023-10-13 14:04 | Outpatient (BNV) | payer OTHER, SELFPAY | PROVIDERS: Admitting Provider Student in an Organized Health Care Education/Training Program; Emergency Provider Emergency Medicine; PCP Nurse Practitioner Family; Visit Provider Student in an Organized Health Care Education/Training Program | DX: J44.9 Chronic obstructive pulmonary disease, unspecified (principal); I45.81 Long QT syndrome; E87.6 Hypokalemia; E83.42 Hypomagnesemia; R44.1 Visual hallucinations; I48.91 Unspecified atrial fibrillation | CPT/HCPCS: 99223; 99238; 99499 ==

== ENCOUNTER → 2023-10-13 14:04 | Outpatient (BNV) | payer OTHER, SELFPAY | PROVIDERS: Admitting Provider Student in an Organized Health Care Education/Training Program; Emergency Provider Emergency Medicine; PCP Nurse Practitioner Family; Visit Provider Social Worker | DX: F10.951 Alcohol use, unspecified with alcohol-induced psychotic disorder with hallucinations (principal) | CPT/HCPCS: 99222; 99232 ==

== ENCOUNTER 2024-02-06 11:45 | Inpatient (IN) | payer OTHER, MEDICAID, SELFPAY ==
[2024-02-06] VITALS (8 sets, daily range): BP systolic 91–112; BP diastolic 50–76; PULSE 49–71; RESP 12–18; TEMP 36.2–36.7; O2SAT 94–100; BMI 37.5
--- NOTE | ~2024-02-06 | XR_ITS ---
EXAMINATION: XR CHEST CLINICAL INFORMATION: Weakness COMPARISON: 10/13/2023 TECHNIQUE: 2 views of the chest were obtained. FINDINGS: Heart, mediastinum and vessels are within normal limits. No bone lesions or effusions. Old right anterior rib fractures again seen. XR/XR chest 2V IMPRESSION: No acute cardiopulmonary disease
--- NOTE | ~2024-02-06 | XR_ITS ---
EXAMINATION: XR CHEST CLINICAL INFORMATION: Crackles COMPARISON: 02/06/2024 TECHNIQUE: Frontal view of the chest was obtained. FINDINGS: Low lung volumes likely influencing vascularity. Increasing atelectasis. No consolidations or effusions. Dilated air-filled structures in the left upper quadrant, question stomach and bowel. XR/XR chest 1V IMPRESSION: Low lung volumes. Increasing atelectasis.
--- NOTE | ~2024-02-06 | US_ITS ---
EXAMINATION: US ABDOMEN LIMITED CLINICAL INFORMATION: Multiple no portal venous thrombosis. COMPARISON: None available. TECHNIQUE: Real-time imaging of the right upper quadrant abdominal viscera. FINDINGS: PANCREAS: Obscured by bowel gas LIVER: Hepatopedal flow in the main portal vein liver echogenicity is increased. No focal hepatic lesion. There is no intrahepatic biliary duct dilatation seen. GALLBLADDER: Gallbladder wall is thickened to 4 mm gallbladder is distended containing sludge. Tenderness was elicited during study. COMMON BILE DUCT: Normal in caliber measuring 0.4 cm in diameter. KIDNEYS: Normal. No hydronephrosis. No renal calculi or focal parenchymal lesions. The right kidney measures 10.8 cm in maximum dimension, left measures 11.2 cm. FREE FLUID: None. US/US abdomen limited IMPRESSION: Distended gallbladder with sludge, wall thickening and tenderness suspicious for acute cholecystitis. Hepatic steatosis. Hepatopedal flow in the main portal vein.
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
--- NOTE | 2024-02-06 11:53 | ECG_ITS ---
Test Reason : WEAKNESS Blood Pressure : / mmHG Vent. Rate : 051 BPM Atrial Rate : 000 BPM P-R Int : 000 ms QRS Dur : 132 ms QT Int : 536 ms P-R-T Axes : 000 -66 064 degrees QTc Int : 494 ms Undetermined rhythm Left axis deviation Right bundle branch block Inferior infarct , age undetermined Abnormal ECG When compared with ECG of 14-OCT-2023 12:11, Undetermined rhythm has replaced Atrial fibrillation Vent. rate has decreased BY 27 BPM Referred By: Muna Mckeon Electronically Signed By:TORSTEN BAER MD
[2024-02-06 12:35] LABS: Basophils Percent Auto 0.3 % (0-2); Hematocrit 23.2 % (42.0-52.0); Hemoglobin 8.3 g/dl (14.0-18.0); Imm Gran Abs Auto 0.06 X10*3/uL (0.00-0.03); Imm Gran Pct Auto 0.8 % (0.0-0.4); Lymphocytes Absolute Auto 0.3 X10*3/uL (1.2-4.9); Lymphocytes Percent Auto 3.7 % (20-40); MANUAL DIFF FLAG SCAN; Mean Corpuscular HGB Conc 35.8 g/dl (31.0-36.0); Mean Corpuscular Hemoglobin 32.5 pg (27.0-33.0); Mean Platelet Volume 10.2 fL (9.4-12.4); Monocytes Absolute Auto 0.4 X10*3/uL (0.1-1.2); Monocytes Percent Auto 4.6 % (2-11); Neutrophils Absolute Auto 7.1 x10*3/uL (2.0-8.3); Neutrophils Percent Auto 90.6 % (45-73); Platelet Count 115 X10*3/uL (160-400); Red Blood Count 2.55 X10*6/uL (4.60-5.80); Red Cell Distribution Width 13.7 % (11.0-16.0); SCAN SMEAR FLAG 1; White Blood Count 7.9 X10*3/uL (4.8-10.8)
[2024-02-06 12:43] LABS: NRBC Pct Auto 1.4 /100WBC (0.0-0.2)
[2024-02-06 12:45] LABS: INTERNATIONAL NORM RATIO 1.4 (0.9-1.1); Prothrombin Time 16.7 SEC (11.1-13.3)
[2024-02-06 12:47] LABS: Partial Thromboplastin Time 37.7 SEC (26.0-36.8)
[2024-02-06 13:01] LABS: Troponin-I High Sensitivity 132.7 ng/L (<3.5-35.0)
[2024-02-06 13:04] LABS: SLIDE REVIEW VERIFIED
[2024-02-06 13:13] LABS: Influenza A PCR NEGATIVE (Negative); Influenza B PCR NEGATIVE (Negative); Resp Syncy Virus RNA Qual PCR NEGATIVE (Negative); SARS COV2 PCR INHOUSE NEGATIVE (Negative)
[2024-02-06 13:19] LABS: Alanine Aminotransferase 55 U/L (0-40); Albumin Level 3.5 g/dL (3.5-5.0); Alkaline Phosphatase 152 U/L (39-117); Anion Gap 27 (12-20); Aspartate Amino Transferase 484 U/L (5-37); Bilirubin Total 5.2 mg/dL (0.0-1.0); Blood Urea Nitrogen 61 mg/dL (9-16); Calcium 7.7 mg/dL (8.4-10.2); Carbon Dioxide 28 mmol/L (22-29); Chloride 78 mmol/L (96-108); Creatinine Clr Calc Pharmacy 14.5; Estimated Glomerular Filt Rate 25; Ethanol 36 mg/dL; Glucose Random 115 mg/dL (60-115); Magnesium 1.5 mg/dL (1.6-2.6); Potassium 1.9 mmol/L (3.3-5.1); Sodium 131 mmol/L (135-145); Total Protein 6.3 g/dL (6.5-8.0)
[2024-02-06 13:56] LABS: Alanine Aminotransferase 54 U/L (0-40); Albumin Level 3.4 g/dL (3.5-5.0); Alkaline Phosphatase 151 U/L (39-117); Anion Gap 25 (12-20); Aspartate Amino Transferase 479 U/L (5-37); Bilirubin Total 5.1 mg/dL (0.0-1.0); Blood Urea Nitrogen 60 mg/dL (9-16); Calcium 8.1 mg/dL (8.4-10.2); Carbon Dioxide 30 mmol/L (22-29); Chloride 78 mmol/L (96-108); Creatinine Clr Calc Pharmacy 15.3; Estimated Glomerular Filt Rate 27; Glucose Random 114 mg/dL (60-115); Potassium 1.6 mmol/L (3.3-5.1); Sodium 131 mmol/L (135-145); Total Protein 6.2 g/dL (6.5-8.0)
[2024-02-06] MEDS: Magnesium Sulfate/D5W 1 GM/100 ML PIGGYBACK IV ×2 (13:57→15:41)
[2024-02-06] MEDS: Potassium Chloride/H20 10 MEQ/100 ML PIGGYBACK 100 MEQ IV ×10 (13:58→23:40)
[2024-02-06] MEDS: Lactated Ringers 1,000 ML 999 ML IV ×2 (14:06→16:43)
[2024-02-06 14:21] LABS: Bilirubin Direct 3.9 mg/dL (0.0-0.5)
[2024-02-06 15:22] LABS: Troponin-I High Sensitivity 102.4 ng/L (<3.5-35.0)
[2024-02-06] MEDS: Potassium Chloride ER 20 MEQ TAB.ER.PRT 60 MEQ PO (15:44)
[2024-02-06 15:46] LABS: Lipase 48 U/L (8-78)
--- NOTE | 2024-02-06 16:15 | PHA.MEDREC ---
Pharmacy Consult ? Medication Reconciliation Pharmacy has completed the medication reconciliation. Spoke with patient, patient told me to use [email or web address]. Also asked him about his various OTC's, he states he takes them when he remembers to.
[2024-02-06] MEDS: Piperacillin Sodium/Tazobactam 3.375 GM in 0.9 % Sodium Chloride 50 ML IV (16:27)
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
[2024-02-06 17:47] LABS: Appearance Urine Clear; Color Urine Dark Yellow; Glucose Urine UA Negative (Negative); Leukocyte Esterase Urine Negative (Negative); Nitrite Urine Negative (Negative); PH 5.5 (5.0-9.0); Specific Gravity - Urine 1.015 (1.005-1.025); UMIC TRIGGER UACC YES; Urine Blood Large (3+) (Negative); Urine Ketones Trace mg/dL (Negative); Urine Protein 30 (1+) mg/dL (Neg-Trace)
[2024-02-06 17:50] LABS: Reflex Lactate? Lactic Acid Added
[2024-02-06 17:54] LABS: Bacteria Urine None Seen (None Seen); Hyaline Casts Urine 0-2 /LPF (0-2); Squamous Epithelial Cell Urine 0-2 /HPF (0-2); WBC Urine 0-5 /HPF (0-5)
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
[2024-02-06 18:05] LABS: Alanine Aminotransferase 44 U/L (0-40); Albumin Level 2.8 g/dL (3.5-5.0); Alkaline Phosphatase 123 U/L (39-117); Anion Gap 22 (12-20); Aspartate Amino Transferase 378 U/L (5-37); Bilirubin Total 4.4 mg/dL (0.0-1.0); Blood Urea Nitrogen 52 mg/dL (9-16); Calcium 7.2 mg/dL (8.4-10.2); Carbon Dioxide 27 mmol/L (22-29); Chloride 83 mmol/L (96-108); Creatinine Clr Calc Pharmacy 19.1; Estimated Glomerular Filt Rate 34; Glucose Random 92 mg/dL (60-115); Potassium 2.2 mmol/L (3.3-5.1); Sodium 130 mmol/L (135-145); Total Protein 5.2 g/dL (6.5-8.0)
[2024-02-06 19:18] LABS: ~Lactic Acid-LAB USE ONLY 1.7 mmol/L (0.5-2.0)
--- NOTE | 2024-02-06 19:35 | PC.NURSE ---
Addendum entered by Sarthak Cee 02/06/24 19:50: consult with MD for repeat labs; to order repeat mag and type&screen now, cmp/cbc (2200 or at the end of K+ infusions). per MD 40meq K+ PO now. zosyn last administered 1600; next dose 2230 per MD. care ongoing. Original Note: pt is axox4 resting comfortably in stretcher, arousable to name. ciwa 0 pt reports hx hallucinations with alcohol withdrawal, denies hallucinations at this time. states im actually quite comfortable. sinus chas on monitor. 6th bag of iv potassium infusing per nov. pt denies cp/sob/n/v/d. pt denies pain at this time. nad. awaiting admission ?imc vs icu.
--- NOTE | 2024-02-06 20:17 | PC.NURSE ---
last iv K+ removed from pyxis. Pharmacy aware.
[2024-02-06] MEDS: Potassium Chloride Packet 20 MEQ PACKET 40 MEQ PO (20:25)
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
--- NOTE | 2024-02-06 20:32 | PC.NURSE ---
pt tolerated po med per mar. K+ infusing per mar.
--- NOTE | 2024-02-06 21:08 | PC.NURSE ---
per hospitalist ; cancel labs for 2199. continue with K+ infusions per nov. ciwa 0 however continue with phenobarb administration per nov. no rhythm changes on monitor. pt denies cp/sob/palpitations. resting comfortably at this time.
[2024-02-06] MEDS: PHENobarbitaL sodium 130 MG/ML IM ONCE 145 MG IM (21:25)
[2024-02-06] MEDS: Apixaban 5 MG TABLET PO (21:27)
[2024-02-06] MEDS: Atorvastatin Calcium 40 MG TABLET PO (21:27)
[2024-02-06] MEDS: Gabapentin 100 MG CAPSULE PO (21:27)
[2024-02-06] MEDS: 0.9 % Sodium Chloride 1,000 ML 100 ML IVCONT (21:28)
[2024-02-06] MEDS: Thiamine HCL 100 MG in 0.9 % Sodium Chloride 100 ML 202 MG IV (21:28)
--- NOTE | 2024-02-06 21:38 | PC.NURSE ---
pt medicated per mar. ivf infusing. hold metoprolol per protocol, Dr. Bull aware and in agreement. pt denies any pain/discomfort, resp even and unlabored. call farfan within reach.
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
--- NOTE | 2024-02-06 23:47 | MHC.EDTECH ---
THIS PCT ASSUMED CARE OF PATIENT AT 2300 ,VITALS TAKEN ,PATIENT WAS INCONTINENT OF URINE ,CARE GIVEN AND BEDDING CHANGE .PATIENT COMFORTABLE WATCHING TELEVISION .CALL PHILLIP WITHIN PATIENT REACH .
[2024-02-07] VITALS (20 sets, daily range): BP systolic 85–117; BP diastolic 48–76; PULSE 51–59; RESP 12–16; TEMP 36.2–36.7; O2SAT 92–100
--- NOTE | 2024-02-07 | ECG_ITS ---
Test Reason : bradycardia Blood Pressure : / mmHG Vent. Rate : 056 BPM Atrial Rate : 000 BPM P-R Int : 000 ms QRS Dur : 118 ms QT Int : 632 ms P-R-T Axes : 000 -42 071 degrees QTc Int : 609 ms Junctional rhythm with retrograde conduction Right bundle branch block ST & T wave abnormality, consider lateral ischemia Prolonged QT Abnormal ECG When compared with ECG of 06-FEB-2024 12:12, Junctional rhythm has replaced Undetermined rhythm Referred By: Mamadou Call Electronically Signed By:TORSTEN BAER MD
[2024-02-07] MEDS: Potassium Chloride/H20 10 MEQ/100 ML PIGGYBACK 100 MEQ IV ×2 (00:57→02:22)
[2024-02-07] MEDS: PHENobarbitaL sodium 130 MG/ML VIAL IM Q3Hx2 109 MG IM ×2 (00:57→04:38)
--- NOTE | 2024-02-07 03:22 | PC.NURSE ---
K+ infusion complete. no ekg changes noted. awaiting AM repeat labs. ciwa 1. vss. pt is resting comfortably in stretcher, arousable to name. axox4. recommended to Dr. Bull for repeat ekg, deferred at this time. pt denies cp/sob/n/v/d. pt able to reposition self in stretcher and uses urinal independently. ivf infusing. call farfan within reach.
--- NOTE | 2024-02-07 04:05 | MHC.EDTECH ---
0400 rounding done ,vitals taken ,patient was incontinent of urine ,care given and bedding change ,RN Irem is aware that patient has a large open area on his coccyx ,This Pct notice open area earlier ,but forget to inform nurse ,Patient was position with pillows off bottom .
[2024-02-07 04:58] LABS: MANUAL DIFF FLAG NO
[2024-02-07 04:59] LABS: Basophils Percent Auto 0.2 % (0-2); Eosinophils Percent Auto 0.3 % (0-4); Imm Gran Abs Auto 0.02 X10*3/uL (0.00-0.03); Imm Gran Pct Auto 0.3 % (0.0-0.4); Lymphocytes Absolute Auto 0.5 X10*3/uL (1.2-4.9); Mean Corpuscular Volume 94.3 fL (80.0-98.0); Mean Platelet Volume 9.9 fL (9.4-12.4); Monocytes Absolute Auto 0.2 X10*3/uL (0.1-1.2); Monocytes Percent Auto 3.7 % (2-11); NRBC Pct Auto 0.7 /100WBC (0.0-0.2); Neutrophils Absolute Auto 5.2 x10*3/uL (2.0-8.3); Neutrophils Percent Auto 86.5 % (45-73); Platelet Count 101 X10*3/uL (160-400); Red Blood Count 2.12 X10*6/uL (4.60-5.80); Red Cell Distribution Width 14.6 % (11.0-16.0)
[2024-02-07 05:15] LABS: Anion Gap 20 (12-20); Blood Urea Nitrogen 42 mg/dL (9-16); Calcium 7.4 mg/dL (8.4-10.2); Carbon Dioxide 26 mmol/L (22-29); Chloride 90 mmol/L (96-108); Creatinine Clr Calc Pharmacy 23.1; Estimated Glomerular Filt Rate 43; Glucose Random 88 mg/dL (60-115); Magnesium 1.9 mg/dL (1.6-2.6); Potassium 3.8 mmol/L (3.3-5.1); Sodium 132 mmol/L (135-145)
--- NOTE | 2024-02-07 05:16 | PC.NURSE ---
critical labs called; hgb 7 & hematocrit 20. Dr. Bull aware, no new orders at this time.
--- NOTE | 2024-02-07 05:43 | PC.NURSE ---
vitals as documented. Dr. alvarez aware.
--- NOTE | 2024-02-07 05:52 | PM.EVENT ---
Event Note Date of Service: 02/07/24 Event Note: Noted drop in hemoglobin and hematocrit. Will hold Eliquis. Keep patient NPO. Gastroenterology has been consulted. Giving IV Protonix. 1 unit PRBC transfusion Time Spent With Patient Time: Total time managing care of this patient today ____ minutes.
--- NOTE | 2024-02-07 06:18 | PC.NURSE ---
coccyx wound picture sent to Dr. Bull via secure messaging; recommend for wound consult. pt has been q2h positions during this shift. pt denies pain. pt states this started 1 week ago, had wound previously that healed with wound care at home. pt reports has been spending long periods of time in his wheelchair.
--- NOTE | 2024-02-07 06:19 | PM.EVENT ---
Event Note Date of Service: 02/07/24 Event Note: Patient has a sacral decubitus injury as noted below. Consulting Wound Care Time Spent With Patient Time: Total time managing care of this patient today ____ minutes.
--- NOTE | 2024-02-07 06:20 | MHC.EDTECH ---
0600 rounding done ,vitals taken ,patient was reposition unto right side with pillows underneath coccyx .
[2024-02-07] MEDS: Pantoprazole Sodium 40 MG/10 ML VIAL 80 MG IVPUSH (06:36)
[2024-02-07] MEDS: Albumin Human 25 % 100 ML 133.33 ML IV ×2 (06:36→08:47)
--- NOTE | 2024-02-07 07:00 | CA_ITS ---
Transthoracic Echocardiogram Patient (Last, First, Middle): Brad Gordon R Gender: Male Date of : 1960 Age: 63 Procedure Date: 02/07/2024 Procedure Type: Transthoracic Echocardiogram Location: ER Height: 121.92 cm Weight: 55.79 kg BSA: 1.29 m2 Heart Rate: 54 bpm BP: 90 / 50 mmHg Print Operator: Referring MD: Mercedez OTERO Symptoms: elevated trops Study Quality: Adequate ECG Rhythm: Bradycardia Conclusions: - Normal left ventricular size and systolic function. There is moderately increased left ventricular wall thickness. The visually estimated ejection fraction is between 55-60%. - The basal inferior segment is akinetic. - Normal right ventricular cavity size and systolic function. Findings Left Ventricle Normal left ventricular size and systolic function. There is moderately increased left ventricular wall thickness. The visually estimated ejection fraction is between 55-60%. There is evidence of regional wall motion abnormalities. Diastolic function is indeterminate on the basis of available data. Normal left ventricular filling pressures. Wall Motion Rest Echo Findings The basal inferior segment is akinetic. Right Ventricle Normal right ventricular cavity size and systolic function. Atria The left atrium is severely dilated. Aortic Valve Normal aortic valve structure and function. There is no aortic valve stenosis. There is no aortic valve regurgitation. Mitral Valve The mitral valve appears normal. There is mild mitral valve regurgitation. There is no mitral valve stenosis. Pulmonic Valve The pulmonic valve is likely normal. Tricuspid Valve Normal tricuspid valve structure. There is trace tricuspid valve regurgitation. The right ventricular systolic pressure is 36 mmHg. Normal right atrial pressure. There is no evidence of pulmonary hypertension. Great Vessels All visible segments of the aorta are normal in size. Venous The inferior vena cava is normal in size and collapses greater than 50% with inspiration. Pericardium/Pleural There is no evidence of pericardial effusion. Prior Study Comparison Changes noted compared to prior study dated: 11/03/2021. LVEF is normal now. Measurements 2D Linear Measurements IVSd: 1.31 0.6-0.9/0.6-1.0 cm LVIDd: 4.68 3.9-5.3/4.2-5.9 cm LVIDd Index: 3.63 2.4-3.2/2.2-3.1 cm/m2 LVIDs: 3.18 2.0-3.6 cm LVPWd: 1.33 0.7-1.1 cm LA Diam: 4.60 2.7-3.8/3.0-4.0 cm LAIDs Index: 3.57 1.5-2.3 cm/m2 LV Mass: 301.31 67-162/88-224 g LV Mass Index: 233.57 43-95/49-115 g/m2 LVOT Diam: 2.30 3.0+(-)1.3 cm 2D Systolic Function EF 4C: 51.30 >55% EF 2C: 45.50 >55% EF BiP: 48.50 >55% Mitral Valve MV Pk E: 0.66 MV PK A: 0.30 MV Decel Time: 206.00 E/A: 2.20 E'Lateral: 9.03 E'Medial: 5.77 E/E' Med: 11.40 E/E' Lat: 7.30 PHT: 60.00 MVA PHT: 3.67 Decel Sunflower: 3.21 Aortic Valve AoV Pk Jame: 0.92 AoV Pk Grad: 3.00 LVOT LVOT Pk Jame: 0.59 LVOT Mn Jame: 0.37 LVOT VTI: 0.14 LVOT Pk Grad: 1.00 LVOT Mn Grad: 1.00 LVOT Diam: 2.30 LVOT Area: 4.15 Diastolic Function MV Pk E: 0.66 MV Pk A: 0.30 E/A: 2.20 E'Medial: 5.77 E/E' Med: 11.40 E' Laterial: 9.03 E/E' Lat: 7.30 Right Ventricle TAPSE (mm): 25.70 TVS' Jame: 10.00 Tricuspid Valve TR Pk Jame: 2.89 TR Pk Grad: 33.00 RA Press: 3.00 RVSP: 36.00 Great Vessels Aorta Sinus of Valsalva: 3.80 2.0-3.5 cm Ao Asc: 3.50 2.1-3.4 cm Pulmonary Valve PV Pk Jame: 0.60 Peak PV Grad: 1.00 Updated in Other Vendor System with Status of Final Mamadou Call MD electronically signed on 02/07/2024 9:19:22 PM with status of Final
--- NOTE | 2024-02-07 07:00 | PC.NURSE ---
rbc infusing no reaction noted. Dr. Bull aware of vitals. pt medicated per mar. ivf paused as pt difficult stick, only 2 peripheral ivs, albumin infusing one and blood infusing other iv.
[2024-02-07] MEDS: Albumin Human 25 % 100 ML 133.3 ML IV ×2 (07:45→10:37)
--- NOTE | 2024-02-07 07:49 | PC.NURSE ---
Hospitalist notified about BPs systolic 80s. Pt sleeping at this time, easily aroused. HR and sat remain stable. Blood and albumin infusing.
--- NOTE | 2024-02-07 08:00 | PC.NURSE ---
Provider at bedside reports he only wants 1 bag total of blood administered, accidently placed a second order for another bag. Reports he cannot cancel it, second order of blood not given per MD.
--- NOTE | 2024-02-07 08:10 | PM.EVENT ---
Event Note Date of Service: 02/07/24 Event Note: hypotension due to etoh hepatitis not sepsis Time Spent With Patient Time: Total time managing care of this patient today ____ minutes.
[2024-02-07] MEDS: 0.9 % Sodium Chloride 1,000 ML 100 ML IVCONT ×2 (08:33→18:47)
[2024-02-07] MEDS: Folic Acid 1 MG TABLET PO (09:36)
[2024-02-07] MEDS: Amiodarone HCL 200 MG TABLET PO (09:36)
[2024-02-07] MEDS: Gabapentin 100 MG CAPSULE PO ×3 (09:37→21:20)
[2024-02-07] MEDS: Magnesium Oxide 400 MG TABLET PO ×2 (09:38→17:51)
[2024-02-07] MEDS: PHENobarbitaL 30 MG TABLET PO ×2 (09:38→21:20)
[2024-02-07] MEDS: Folic Acid 1 MG in 0.9 % Sodium Chloride 50 ML 100.4 MG IV (09:41)
--- NOTE | 2024-02-07 09:50 | PC.NURSE ---
Pt noted to be more alert, answering questions, denies pain. Transfusion ended, vitals noted to have improved overall.
--- NOTE | 2024-02-07 09:51 | PC.NURSE ---
Waiting for last albumin from pharmacy due to none left in Pyxis. Echo at bedside at this time.
[2024-02-07] MEDS: Thiamine HCL 100 MG in 0.9 % Sodium Chloride 100 ML 202 MG IV (10:42)
--- NOTE | 2024-02-07 10:47 | PC.NURSE ---
Pt overall reports he feels better, skin color appears less pale. Pt more alert and answering questions appropriately. Vital signs more stable than previously.
--- NOTE | 2024-02-07 10:49 | PC.NURSE ---
CIWA 0 at this time, pt reports no withdrawal symptoms, denies any haluncinations.
--- NOTE | 2024-02-07 11:12 | HO.PM.IMPN ---
Subjective Subjective Date of Service: 02/07/24 Interval History: fatigued Physical Exam Vital Signs: Vital Signs: Last Vital Signs Temp 97.8 F 02/07/24 09:49 Pulse 56 02/07/24 10:50 Resp 16 02/07/24 10:50 BP 106/65 02/07/24 10:50 Pulse Ox 99 02/07/24 10:50 O2 Del Method Room Air 02/07/24 10:50 BMI result Body Mass Index 37.5 Const: General: cooperative, healthy appearing and comfortable HEENT: Head: Yes normal to inspection Eyes: Other: icteric GI: Other: abdomen is soft and distended not tender to deep palpation no cva tenderness Skin: Other: icteric Psych: Mental Status: mental status grossly normal Speech and movement: Normal speech and movement present Attitude: cooperative Objective Data Active Medications Acetaminophen (Acetaminophen 325 Mg Tablet) 650 mg PO Q6H PRN PRN Reason: Pain, Mild (Pain Scale 1-3) Albuterol/Ipratropium (Albuterol/Iprat 2.5/0.5mg 3 Ml Ampul.Neb) 3 ml INHALE RQ4H WHILE AWAKE PRN PRN Reason: shortness of breath/wheezing Amiodarone HCl (Amiodarone Hcl 200 Mg Tablet) 200 mg PO DAILY [facility] Last Admin: 02/07/24 09:36 Dose: 200 mg Documented By: SARAH Atorvastatin Calcium (Atorvastatin Calcium 40 Mg Tablet) 40 mg PO BEDTIME [facility] Last Admin: 02/06/24 21:27 Dose: 40 mg Documented By: PETRA Folic Acid (Folic Acid 1 Mg Tablet) 1 mg PO DAILY [facility] Last Admin: 02/07/24 09:36 Dose: 1 mg Documented By: SARAH Gabapentin (Gabapentin 100 Mg Capsule) 100 mg PO TID [facility] Last Admin: 02/07/24 09:37 Dose: 100 mg Documented By: SARAH Thiamine HCl 100 mg/ Sodium (Chloride) 101 mls @ 202 mls/hr IV DAILY [facility] Last Admin: 02/07/24 10:42 Dose: 202 mls/hr Documented By: SARAH Folic Acid 1 mg/ Sodium (Chloride) 50.2 mls @ 100.4 mls/hr IV DAILY [facility] Stop: 02/09/24 09:29 Last Infusion: 02/07/24 10:49 Dose: Infused Documented By: SARAH Sodium Chloride (Ns) 1,000 mls @ 100 mls/hr IVCONT .Q10H [facility] Last Admin: 02/07/24 08:33 Dose: 100 mls/hr Documented By: SARAH Magnesium Hydroxide (Milk Of Magnesia 30 Ml Oral.Susp) 30 ml PO DAILY PRN PRN Reason: Constipation Magn[facility]ide ([facility] 400 Mg [facility]) [facility] Admin: 02/07/24 09:38 Dose: 400 mg Documented By: SARAH Metoprolol Tartrate (Metoprolol Tartrate 100 Mg Tablet) 100 mg PO BID [facility]; Protocol Last Admin: 02/07/24 09:46 Dose: Not Given Documented By: SARAH Non-Admin Reason: HR and BP low Ondansetron HCl (Ondansetron Hcl 4 Mg/2 Ml Vial) 4 mg IVPUSH Q8H PRN PRN Reason: Nausea and Vomiting Pharmacy Consult (Consult Rx Etoh Phenob Im/Po) 1 each MISCELLANE ONCE PRN; Protocol PRN Reason: Consult order Phenobarbital (Phenobarbital 30 Mg Tablet) 30 mg PO BID [facility] Stop: 02/08/24 21:01 Last Admin: 02/07/24 09:38 Dose: 30 mg Documented By: SARAH Phenobarbital (Phenobarbital 15 Mg Tablet) 15 mg PO BID [facility] Stop: 02/10/24 21:01 Phenobarbital (Phenobarbital 15 Mg Tablet) 15 mg PO DAILY [facility] Stop: 02/12/24 09:01 Sodium Chloride (0.9 % Sodium Chloride Flush 3 Ml Syringe) 3 ml IVFLUSH QSHIFT [facility] Last Admin: 02/07/24 08:09 Dose: Not Given Documented By: SARAH Non-Admin Reason: IV Running Labs 02/07/24 04:54 02/07/24 04:54 Labs: Laboratory Results - last 24 hr 02/06/24 02/06/24 02/06/24 12:26 12:27 13:26 MCV 91.0 MCH 32.5 MCHC 35.8 RDW 13.7 Plt Count 115 L MPV 10.2 Immature Gran % (Auto) 0.8 H Neut % (Auto) 90.6 H Lymph % (Auto) 3.7 L [place] % (Auto) 4.6 Eos % (Auto) 0.0 Baso % (Auto) 0.3 Lymph # (Auto) 0.3 L [place] # (Auto) 0.4 Eos # (Auto) 0.0 Baso # (Auto) 0.0 Abs Immat Gran (auto) 0.06 H Absolute Neuts (auto) 7.1 Absolute Nucleated RBC 0.110 H Nucleated RBC % (auto) 1.4 H Smear Tech's Comments VERIFIED Smear Path Review SEE NOTE PT 16.7 H INR 1.4 H APTT 37.7 H Anion Gap 27 H 25 H Estim Creat Clear Calc 14.5 15.3 Estimated GFR 25 27 Random Glucose 115 114 Lactic Acid Lactic Acid F/U @ 2Hr Calcium 7.7 L D 8.1 L Magnesium 1.5 L Total Bilirubin 5.2 H 5.1 H Direct Bilirubin 3.9 H AST 484 H 479 H ALT 55 H 54 H Alkaline Phosphatase 152 H 151 H Troponin I High Sens 132.7 H* D Total Protein 6.3 L 6.2 L Albumin 3.5 3.4 L Lipase 48 Urine Color Urine Appearance Urine pH Ur Specific [place] Urine Protein Urine Glucose (UA) Urine Ketones Urine Blood Urine Nitrite Ur Leukocyte Esterase Urine RBC Urine WBC Ur Squamous Epith Cells Urine Bacteria Hyaline Casts Ethyl Alcohol 36 Influenza Type A (PCR) NEGATIVE Influenza Type B (PCR) NEGATIVE RSV RNA Qual (PCR) NEGATIVE SARS-CoV-2 RNA (RT-PCR) NEGATIVE Blood Type Antibody Screen Crossmatch 02/06/24 02/06/24 02/06/24 14:36 15:47 17:34 MCV MCH MCHC RDW Plt Count MPV Immature Gran % (Auto) Neut % (Auto) Lymph % (Auto) [place] % (Auto) Eos % (Auto) Baso % (Auto) Lymph # (Auto) [place] # (Auto) Eos # (Auto) Baso # (Auto) Abs Immat Gran (auto) Absolute Neuts (auto) Absolute Nucleated RBC Nucleated RBC % (auto) Smear Tech's Comments Smear Path Review PT INR APTT Anion Gap 22 H Estim Creat Clear Calc 19.1 Estimated GFR 34 Random Glucose 92 Lactic Acid 3.0 H* Lactic Acid F/U @ 2Hr Calcium 7.2 L D Magnesium Total Bilirubin 4.4 H Direct Bilirubin AST 378 H ALT 44 H Alkaline Phosphatase 123 H Troponin I High Sens 102.4 H* Total Protein 5.2 L Albumin 2.8 L Lipase Urine Color Urine Appearance Urine pH Ur Specific [place] Urine Protein Urine Glucose (UA) Urine Ketones Urine Blood Urine Nitrite Ur Leukocyte Esterase Urine RBC Urine WBC Ur Squamous Epith Cells Urine Bacteria Hyaline Casts Ethyl Alcohol Influenza Type A (PCR) Influenza Type B (PCR) RSV RNA Qual (PCR) SARS-CoV-2 RNA (RT-PCR) Blood Type Antibody Screen Crossmatch 02/06/24 02/06/24 02/06/24 17:35 18:35 20:14 MCV MCH MCHC RDW Plt Count MPV Immature Gran % (Auto) Neut % (Auto) Lymph % (Auto) [place] % (Auto) Eos % (Auto) Baso % (Auto) Lymph # (Auto) [place] # (Auto) Eos # (Auto) Baso # (Auto) Abs Immat Gran (auto) Absolute Neuts (auto) Absolute Nucleated RBC Nucleated RBC % (auto) Smear Tech's Comments Smear Path Review PT INR APTT Anion Gap Estim Creat Clear Calc Estimated GFR Random Glucose Lactic Acid Lactic Acid F/U @ 2Hr 1.7 Calcium Magnesium 2.0 Total Bilirubin Direct Bilirubin AST ALT Alkaline Phosphatase Troponin I High Sens Total Protein Albumin Lipase Urine Color Dark Yellow Urine Appearance Clear Urine pH 5.5 Ur Specific [place] 1.015 Urine Protein 30 (1+) H Urine Glucose (UA) Negative Urine Ketones Trace Urine Blood Large (3+) H Urine Nitrite Negative Ur Leukocyte Esterase Negative Urine RBC 3-5 H Urine WBC 0-5 Ur Squamous Epith Cells 0-2 Urine Bacteria None Seen Hyaline Casts 0-2 Ethyl Alcohol Influenza Type A (PCR) Influenza Type B (PCR) RSV RNA Qual (PCR) SARS-CoV-2 RNA (RT-PCR) Blood Type O Positive Antibody Screen NEGATIVE Crossmatch See Detail 02/07/24 04:54 MCV 94.3 MCH 33.0 MCHC 35.0 RDW 14.6 Plt Count 101 L MPV 9.9 Immature Gran % (Auto) 0.3 Neut % (Auto) 86.5 H Lymph % (Auto) 9.0 L [place] % (Auto) 3.7 Eos % (Auto) 0.3 Baso % (Auto) 0.2 Lymph # (Auto) 0.5 L [place] # (Auto) 0.2 Eos # (Auto) 0.0 Baso # (Auto) 0.0 Abs Immat Gran (auto) 0.02 Absolute Neuts (auto) 5.2 Absolute Nucleated RBC 0.040 H Nucleated RBC % (auto) 0.7 H Smear Tech's Comments Smear Path Review PT INR APTT Anion Gap 20 Estim Creat Clear Calc 23.1 Estimated GFR 43 Random Glucose 88 Lactic Acid Lactic Acid F/U @ 2Hr Calcium 7.4 L Magnesium 1.9 Total Bilirubin Direct Bilirubin AST ALT Alkaline Phosphatase Troponin I High Sens Total Protein Albumin Lipase Urine Color Urine Appearance Urine pH Ur Specific [place] Urine Protein Urine Glucose (UA) Urine Ketones Urine Blood Urine Nitrite Ur Leukocyte Esterase Urine RBC Urine WBC Ur Squamous Epith Cells Urine Bacteria Hyaline Casts Ethyl Alcohol Influenza Type A (PCR) Influenza Type B (PCR) RSV RNA Qual (PCR) SARS-CoV-2 RNA (RT-PCR) Blood Type Antibody Screen Crossmatch Assessment and Plan (1) Alcoholic hepatitis: Status: Acute Plan 63M PMH persistent atrial fibrillation on Eliquis, chronic systolic CHF, peripheral artery disease, COPD, hypertension, hyperlipidemia, alcohol dependence, bilateral above-knee amputation presented with weakness and found to have severe electrolyte abnormalities. Alcohol dependence complicated by acute severe hypokalemia Replaced, monitor Acute hypomagnesemia Replaced, monitor Acute kidney injury Resolved Acute alcoholic hepatitis Continue high-protein diet, monitor, no steroids for now GI appreciated Gallbladder distention Low suspicion for cholecystitis, likely due to hepatitis Acute on chronic normocytic anemia Likely inflammatory, at risk for acute blood loss anemia, transfused 1 unit PRBC, on PPI, GI follow-up Monitor CBC COPD Duo nebs as needed Persistent atrial fibrillation Continue Eliquis, metoprolol, amiodarone Chronic systolic CHF Holding Lasix for severe hypokalemia, monitor DVT prophylaxis with Eliquis Full code reason for continued hospitalization: Monitoring for GI bleed Quality Stroke Does the patient have a stroke diagnosis?: No VTE Prior VTE?: No VTE Risk Level:: Medical - moderate - high VTE Device Contraindication: Treatment Not Indicated VTE Drug Contraindication: N/A - Med Ordered
[2024-02-07 12:54] LABS: Troponin-I High Sensitivity 54.9 ng/L (<3.5-35.0)
--- NOTE | 2024-02-07 13:01 | PC.NURSE ---
Cardiology and GI consulted.
--- NOTE | 2024-02-07 13:02 | MHC.CM.PN ---
Pt lives alone, he has a few hours a week of [employer] [employer] services from [facility] and would like more assistance, task submitted for [facility] to re-assess for services. He uses a W/C and said he is due to get a new electric one from his insurance. He has access to transportation when he needs it, just has to set it up ahead of time. HCP on file and confirmed: Isabela Green. PCP: Dr. Ramsey. CM to follow for DC planning.
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
[2024-02-07 13:21] LABS: Alanine Aminotransferase 48 U/L (0-40); Albumin Level 3.1 g/dL (3.5-5.0); Alkaline Phosphatase 126 U/L (39-117); Aspartate Amino Transferase 369 U/L (5-37); Bilirubin Direct 3.2 mg/dL (0.0-0.5); Bilirubin Total 4.3 mg/dL (0.0-1.0); Lactate Dehydrogenase 1292 U/L (118-273); Total Protein 5.6 g/dL (6.5-8.0)
[2024-02-07] MEDS: Magnesium Sulfate/D5W 1 GM/100 ML PIGGYBACK IV (14:09)
[2024-02-07] MEDS: 0.9 % Sodium Chloride Flush 3 ML SYRINGE IVFLUSH (15:41)
--- NOTE | 2024-02-07 15:57 | P.PNGI_ITS ---
Subjective Subjective Date of Service: 02/07/24 Interval History: pt has no compalints today no abdominal pain no nausea no vomiting no melena or rectal bleeding UA with large blood Critical Care Time (minutes): 0 Physical Exam 2 Vital Signs: Vital Signs: Last Vital Signs Temp 97.8 F 02/07/24 09:49 Pulse 55 02/07/24 15:41 Resp 14 02/07/24 15:41 BP 103/68 02/07/24 15:41 Pulse Ox 96 02/07/24 15:41 O2 Del Method Room Air 02/07/24 15:41 BMI result Body Mass Index 37.5 EXAM: GENERAL: The patient is relaxed VITAL SIGNS:see workflow HEENT: Nonicteric sclerae, PERRLA, EOMI. Oropharynx clear. Moist mucous membranes. Conjunctivae appear pale. No thyroid mass. CHEST: Chest wall is nontender. HEART: Regular rate and rhythm without murmurs. LUNGS: Clear to auscultation bilaterally. ABDOMEN: Soft, positive bowel sounds, nontender, no organomegaly.no flank tenderness SKIN: No rash, no excessive bruising, petechiae, or purpura. NEUROLOGIC: Cranial nerves II-XII intact without motor/sensory deficit. Psych: normal affect b/l amputation Objective Data Labs 02/07/24 04:54 02/07/24 04:54 Labs: Laboratory Results - last 24 hr 02/06/24 02/06/24 02/06/24 12:26 15:47 17:34 WBC RBC Hgb Hct MCV MCH MCHC RDW Plt Count MPV Immature Gran % (Auto) Neut % (Auto) Lymph % (Auto) Marion % (Auto) Eos % (Auto) Baso % (Auto) Lymph # (Auto) Marion # (Auto) Eos # (Auto) Baso # (Auto) Abs Immat Gran (auto) Absolute Neuts (auto) Absolute Nucleated RBC Nucleated RBC % (auto) Smear Path Review SEE NOTE Sodium 130 L Potassium 2.2 L* D Chloride 83 L Carbon Dioxide 27 Anion Gap 22 H BUN 52 H Creatinine 1.97 H Estim Creat Clear Calc 19.1 Estimated GFR 34 Random Glucose 92 Lactic Acid 3.0 H* Lactic Acid F/U @ 2Hr Calcium 7.2 L D Magnesium Total Bilirubin 4.4 H Direct Bilirubin AST 378 H ALT 44 H Alkaline Phosphatase 123 H Lactate Dehydrogenase Troponin I High Sens Total Protein 5.2 L Albumin 2.8 L Urine Color Urine Appearance Urine pH Ur Specific [place] Urine Protein Urine Glucose (UA) Urine Ketones Urine Blood Urine Nitrite Ur Leukocyte Esterase Urine RBC Urine WBC Ur Squamous Epith Cells Urine Bacteria Hyaline Casts Blood Type Antibody Screen Crossmatch 02/06/24 02/06/24 02/06/24 17:35 18:35 20:14 WBC RBC Hgb Hct MCV MCH MCHC RDW Plt Count MPV Immature Gran % (Auto) Neut % (Auto) Lymph % (Auto) Marion % (Auto) Eos % (Auto) Baso % (Auto) Lymph # (Auto) Marion # (Auto) Eos # (Auto) Baso # (Auto) Abs Immat Gran (auto) Absolute Neuts (auto) Absolute Nucleated RBC Nucleated RBC % (auto) Smear Path Review Sodium Potassium Chloride Carbon Dioxide Anion Gap BUN Creatinine Estim Creat Clear Calc Estimated GFR Random Glucose Lactic Acid Lactic Acid F/U @ 2Hr 1.7 Calcium Magnesium 2.0 Total Bilirubin Direct Bilirubin AST ALT Alkaline Phosphatase Lactate Dehydrogenase Troponin I High Sens Total Protein Albumin Urine Color Dark Yellow Urine Appearance Clear Urine pH 5.5 Ur Specific [place] 1.015 Urine Protein 30 (1+) H Urine Glucose (UA) Negative Urine Ketones Trace Urine Blood Large (3+) H Urine Nitrite Negative Ur Leukocyte Esterase Negative Urine RBC 3-5 H Urine WBC 0-5 Ur Squamous Epith Cells 0-2 Urine Bacteria None Seen Hyaline Casts 0-2 Blood Type O Positive Antibody Screen NEGATIVE Crossmatch See Detail 02/07/24 02/07/24 04:54 12:21 WBC 6.0 RBC 2.12 L Hgb 7.0 L* Hct 20.0 L* MCV 94.3 MCH 33.0 MCHC 35.0 RDW 14.6 Plt Count 101 L MPV 9.9 Immature Gran % (Auto) 0.3 Neut % (Auto) 86.5 H Lymph % (Auto) 9.0 L Marion % (Auto) 3.7 Eos % (Auto) 0.3 Baso % (Auto) 0.2 Lymph # (Auto) 0.5 L Marion # (Auto) 0.2 Eos # (Auto) 0.0 Baso # (Auto) 0.0 Abs Immat Gran (auto) 0.02 Absolute Neuts (auto) 5.2 Absolute Nucleated RBC 0.040 H Nucleated RBC % (auto) 0.7 H Smear Path Review Sodium 132 L Potassium 3.8 D Chloride 90 L Carbon Dioxide 26 Anion Gap 20 BUN 42 H Creatinine 1.63 H Estim Creat Clear Calc 23.1 Estimated GFR 43 Random Glucose 88 Lactic Acid Lactic Acid F/U @ 2Hr Calcium 7.4 L Magnesium 1.9 Total Bilirubin 4.3 H Direct Bilirubin 3.2 H AST 369 H ALT 48 H Alkaline Phosphatase 126 H Lactate Dehydrogenase 1292 H Troponin I High Sens 54.9 H Total Protein 5.6 L Albumin 3.1 L Urine Color Urine Appearance Urine pH Ur Specific [place] Urine Protein Urine Glucose (UA) Urine Ketones Urine Blood Urine Nitrite Ur Leukocyte Esterase Urine RBC Urine WBC Ur Squamous Epith Cells Urine Bacteria Hyaline Casts Blood Type Antibody Screen Crossmatch Procedures Date of Service Date of Service: 02/07/24 Progress Note: A&P Assessment and plan (1) Alcoholic hepatitis: Status: Acute (2) Anemia: Status: Acute Plan 1/ Abn LFT< suspected due to alcoholic hepatitis or ischemia from dehydration, 2/ Anemia, multifactorial, received 5 L of fluids in last 24 hr per chart, also could be from hematuria, CKD, nutritional --no overt GI bleeding PLAN: 1/ hold on steroids 2/cont to monitor HGB< if overt signs of GIB then egd, colo 3/ transfuse to keep hgb >7 g/dl 4/ low dose PPI to prevent stress ulceration 5/ check b12, folate, iron, zinc 6/ consider urology consult if persistent hematuria on UA Time Spent With Patient Time: Total time managing care of this patient today ____ minutes. Quality Stroke Does the patient have a stroke diagnosis?: No VTE Prior VTE?: No VTE Risk Level:: Medical - moderate - high VTE Device Contraindication: Treatment Not Indicated VTE Drug Contraindication: N/A - Med Ordered
--- NOTE | 2024-02-07 18:50 | PC.NURSE ---
Pt sleeping at this time, vitals remain stable. IV fluids late due to pt bending his arm frequently and occluding IV
--- NOTE | 2024-02-07 19:12 | PC.NURSE ---
This RN assumed pt care @ 1900. Pt ca&ox3, no signs of distress. Pt resting comfortably in bed. Plan of care ongoing.
[2024-02-07] MEDS: Atorvastatin Calcium 40 MG TABLET PO (21:20)
--- NOTE | 2024-02-07 21:35 | PC.NURSE ---
Pt medicated per nov. Pt resting comfortably in bed. Plan of care ongoing.
--- NOTE | 2024-02-07 21:58 | PC.NURSE ---
Pt requested and helped with urinal Pt given clean blanket Plan of care ongoing.
[2024-02-08] VITALS (8 sets, daily range): BP systolic 116–132; BP diastolic 75–88; PULSE 54–69; RESP 11–18; TEMP 36.3–36.8; O2SAT 93–99
--- NOTE | 2024-02-08 | ECG_ITS ---
Test Reason : PROLONGED QTC Blood Pressure : / mmHG Vent. Rate : 064 BPM Atrial Rate : 000 BPM P-R Int : 000 ms QRS Dur : 132 ms QT Int : 566 ms P-R-T Axes : 000 -40 057 degrees QTc Int : 583 ms Atrial fibrillation Left axis deviation Right bundle branch block Inferior infarct (cited on or before 24-JUL-2021) T wave abnormality, consider anterior ischemia Abnormal ECG When compared with ECG of 07-FEB-2024 11:56, Atrial fibrillation has replaced Junctional rhythm Referred By: Mamadou Call Electronically Signed By:TORSTEN BAER MD
[2024-02-08] MEDS: 0.9 % Sodium Chloride 1,000 ML 100 ML IVCONT ×2 (02:46→12:52)
--- NOTE | 2024-02-08 04:54 | MHC.EDTECH ---
pt bed linens wet from urine. pt bed linen and gown changed and pt cleaned up. pt into position of comfort and call farfan within reach.
[2024-02-08 06:19] LABS: Hematocrit 23.3 % (42.0-52.0); Mean Corpuscular HGB Conc 34.3 g/dl (31.0-36.0); Mean Corpuscular Hemoglobin 32.1 pg (27.0-33.0); Mean Corpuscular Volume 93.6 fL (80.0-98.0); Mean Platelet Volume 10.4 fL (9.4-12.4); NRBC Pct Auto 0.9 /100WBC (0.0-0.2); Red Blood Count 2.49 X10*6/uL (4.60-5.80); Red Cell Distribution Width 17.3 % (11.0-16.0); White Blood Count 4.4 X10*3/uL (4.8-10.8)
[2024-02-08 06:21] LABS: Platelet Count 88 X10*3/uL (160-400)
[2024-02-08 06:33] LABS: INTERNATIONAL NORM RATIO 1.3 (0.9-1.1); Prothrombin Time 15.9 SEC (11.1-13.3)
[2024-02-08 06:42] LABS: Alanine Aminotransferase 33 U/L (0-40); Albumin Level 3.4 g/dL (3.5-5.0); Alkaline Phosphatase 99 U/L (39-117); Anion Gap 18 (12-20); Aspartate Amino Transferase 237 U/L (5-37); Bilirubin Direct 2.4 mg/dL (0.0-0.5); Bilirubin Total 3.4 mg/dL (0.0-1.0); Blood Urea Nitrogen 23 mg/dL (9-16); Calcium 7.1 mg/dL (8.4-10.2); Carbon Dioxide 19 mmol/L (22-29); Chloride 102 mmol/L (96-108); Creatinine Clr Calc Pharmacy 46.6; Estimated Glomerular Filt Rate > 60; Glucose Fasting 81 mg/dL (60-99); Magnesium 1.6 mg/dL (1.6-2.6); Potassium 3.3 mmol/L (3.3-5.1); Sodium 136 mmol/L (135-145); Total Protein 5.4 g/dL (6.5-8.0)
[2024-02-08] MEDS: PHENobarbitaL 30 MG TABLET PO ×2 (09:13→21:53)
[2024-02-08] MEDS: Folic Acid 1 MG TABLET PO (09:13)
[2024-02-08] MEDS: Magnesium Oxide 400 MG TABLET PO ×2 (09:13→15:38)
[2024-02-08] MEDS: Gabapentin 100 MG CAPSULE PO ×3 (09:13→21:53)
[2024-02-08] MEDS: Folic Acid 1 MG in 0.9 % Sodium Chloride 50 ML 100.4 MG IV (09:15)
[2024-02-08] MEDS: Thiamine HCL 100 MG in 0.9 % Sodium Chloride 100 ML 202 MG IV (09:31)
--- NOTE | 2024-02-08 11:16 | HO.PM.IMPN ---
Subjective Subjective Date of Service: 02/08/24 Interval History: improving Physical Exam Vital Signs: Vital Signs: Last Vital Signs Temp 97.4 F 02/08/24 07:34 Pulse 60 02/08/24 07:34 Resp 17 02/08/24 08:00 BP 128/86 02/08/24 07:34 Pulse Ox 97 02/08/24 07:34 O2 Del Method Room Air 02/08/24 08:00 BMI result Body Mass Index 37.5 General: AO X 3, no acute distress Resp: CTA bilateral, no accessory muscles used CVS: S1,S2,RRR GI: soft, non tender, non distended Neuro: motor grossly intact, alert Psych: appropriate affect, appropriate insight bilateral AKA Objective Data Active Medications Acetaminophen (Acetaminophen 325 Mg Tablet) 650 mg PO Q6H PRN PRN Reason: Pain, Mild (Pain Scale 1-3) Albuterol/Ipratropium (Albuterol/Iprat 2.5/0.5mg 3 Ml Ampul.Neb) 3 ml INHALE RQ4H WHILE AWAKE PRN PRN Reason: shortness of breath/wheezing Amiodarone HCl (Amiodarone Hcl 200 Mg Tablet) 200 mg PO DAILY [facility] Last Admin: 02/07/24 09:36 Dose: 200 mg Documented By: SARAH Atorvastatin Calcium (Atorvastatin Calcium 40 Mg Tablet) 40 mg PO BEDTIME [facility] Last Admin: 02/07/24 21:20 Dose: 40 mg Documented By: MISTY Folic Acid (Folic Acid 1 Mg Tablet) 1 mg PO DAILY [facility] Last Admin: 02/08/24 09:13 Dose: 1 mg Documented By: TAVO Gabapentin (Gabapentin 100 Mg Capsule) 100 mg PO TID [facility] Last Admin: 02/08/24 09:13 Dose: 100 mg Documented By: TAVO Thiamine HCl 100 mg/ Sodium (Chloride) 101 mls @ 202 mls/hr IV DAILY [facility] Last Infusion: 02/08/24 10:31 Dose: Infused Documented By: TAVO Folic Acid 1 mg/ Sodium (Chloride) 50.2 mls @ 100.4 mls/hr IV DAILY [facility] Stop: 02/09/24 09:29 Last Infusion: 02/08/24 10:30 Dose: Infused Documented By: TAVO Sodium Chloride (Ns) 1,000 mls @ 100 mls/hr IVCONT .Q10H [facility] Last Admin: 02/08/24 02:46 Dose: 100 mls/hr Documented By: MISTY Magnesium Hydroxide (Milk Of Magnesia 30 Ml Oral.Susp) 30 ml PO DAILY PRN PRN Reason: Constipation Magnesium Oxide (Magnesium Oxide 400 Mg Tablet) 400 mg PO BIDPC [facility] Last Admin: 02/08/24 09:13 Dose: 400 mg Documented By: TAVO Pharmacy Consult (Consult Rx Etoh Phenob Im/Po) 1 each MISCELLANE ONCE PRN; Protocol PRN Reason: Consult order Phenobarbital (Phenobarbital 30 Mg Tablet) 30 mg PO BID [facility] Stop: 02/08/24 21:01 Last Admin: 02/08/24 09:13 Dose: 30 mg Documented By: TAVO Phenobarbital (Phenobarbital 15 Mg Tablet) 15 mg PO BID [facility] Stop: 02/10/24 21:01 Phenobarbital (Phenobarbital 15 Mg Tablet) 15 mg PO DAILY [facility] Stop: 02/12/24 09:01 Sodium Chloride (0.9 % Sodium Chloride Flush 3 Ml Syringe) 3 ml IVFLUSH QSHIFT [facility] Last Admin: 02/08/24 09:06 Dose: Not Given Documented By: TAVO Non-Admin Reason: IV Running Labs 02/08/24 04:44 02/08/24 04:44 Labs: Laboratory Results - last 24 hr 02/07/24 02/07/24 02/08/24 04:54 12:21 04:44 MCV 93.6 MCH 32.1 MCHC 34.3 RDW 17.3 H Plt Count 88 L MPV 10.4 Absolute Nucleated RBC 0.040 H Nucleated RBC % (auto) 0.9 H PT 15.9 H INR 1.3 H Anion Gap 18 Estim Creat Clear Calc 46.6 Estimated GFR > 60 Fasting Glucose 81 Calcium 7.1 L Magnesium 1.6 Total Bilirubin 4.3 H 3.4 H Direct Bilirubin 3.2 H 2.4 H AST 369 H 237 H ALT 48 H 33 Alkaline Phosphatase 126 H 99 Lactate Dehydrogenase 1292 H Troponin I High Sens 54.9 H Total Protein 5.6 L 5.4 L Albumin 3.1 L 3.4 L Microbiology Microbiology Results: Microbiology 02/06/24 16:21 Blood Culture - Preliminary Blood - Venous No growth after 24 hours. 02/06/24 15:47 Blood Culture - Preliminary Blood - Venous No growth after 24 hours. Assessment and Plan (1) Alcoholic hepatitis: Status: Acute Plan 63M PMH persistent atrial fibrillation on Eliquis, chronic systolic CHF, peripheral artery disease, COPD, hypertension, hyperlipidemia, alcohol dependence, bilateral above-knee amputation presented with weakness and found to have severe electrolyte abnormalities. Alcohol dependence complicated by acute severe hypokalemia Replaced, monitor Acute hypomagnesemia Replaced, monitor Acute kidney injury Resolved Acute alcoholic hepatitis Continue high-protein diet, monitor, no steroids for now GI appreciated etoh dependence with witdhrawal phenobarb Gallbladder distention Low suspicion for cholecystitis, likely due to hepatitis Acute on chronic normocytic anemia Likely inflammatory, at risk for acute blood loss anemia, transfused 1 unit PRBC, on PPI, GI following Monitor CBC - stable COPD Duo nebs as needed Persistent atrial fibrillation Continue Eliquis, metoprolol, amiodarone Chronic systolic CHF Holding Lasix for severe hypokalemia, monitor DVT prophylaxis with Eliquis Full code reason for continued hospitalization: Monitoring for GI bleed, phenobarb protocol Quality Stroke Does the patient have a stroke diagnosis?: No VTE Prior VTE?: No VTE Risk Level:: Medical - moderate - high VTE Device Contraindication: Treatment Not Indicated VTE Drug Contraindication: N/A - Med Ordered
--- NOTE | 2024-02-08 11:46 | PM.PNCARD ---
Subjective Subjective Date of Service: 02/08/24 Interval history: Seen and examined at bedside. No acute complaints. EKG continues to show atrial fibrillation with prolonged QT interval. Physical Exam Vital Signs: Last Vital Signs Temp 97.4 F 02/08/24 07:34 Pulse 60 02/08/24 07:34 Resp 17 02/08/24 08:00 BP 128/86 02/08/24 07:34 Pulse Ox 97 02/08/24 07:34 O2 Del Method Room Air 02/08/24 08:00 BMI result Body Mass Index 37.5 GENERAL APPEARANCE: Sick appearing. Frail. NECK: no carotid bruit, no jugular venous distention. SKIN: no suspicious lesions, warm and dry. HEART: no murmurs, irregular rate and rhythm. Bradycardic. LUNGS: clear to auscultation bilaterally. ABDOMEN: soft, nontender. EXTREMITIES: Bilateral above-knee amputation. PERIPHERAL PULSES: equal. NEUROLOGIC: No gross deficits, AAO X 3 Objective Labs and Meds 02/08/24 04:44 02/08/24 04:44 Lab results: Laboratory Results - last 24 hr 02/07/24 02/07/24 02/08/24 04:54 12:21 04:44 WBC 4.4 L RBC 2.49 L Hgb 8.0 L Hct 23.3 L MCV 93.6 MCH 32.1 MCHC 34.3 RDW 17.3 H Plt Count 88 L MPV 10.4 Absolute Nucleated RBC 0.040 H Nucleated RBC % (auto) 0.9 H PT 15.9 H INR 1.3 H Sodium 136 Potassium 3.3 Chloride 102 Carbon Dioxide 19 L Anion Gap 18 BUN 23 H Creatinine 0.81 Estim Creat Clear Calc 46.6 Estimated GFR > 60 Fasting Glucose 81 Calcium 7.1 L Magnesium 1.6 Total Bilirubin 4.3 H 3.4 H Direct Bilirubin 3.2 H 2.4 H AST 369 H 237 H ALT 48 H 33 Alkaline Phosphatase 126 H 99 Lactate Dehydrogenase 1292 H Troponin I High Sens 54.9 H Total Protein 5.6 L 5.4 L Albumin 3.1 L 3.4 L Progress Note: A&P Assessment and plan (1) Prolonged QT interval: Status: Acute (2) A-fib: Status: Acute Plan [age] year gentleman alcoholism, previous alcoholic cardiomyopathy which has improved on echocardiography performed this admission, electrolyte imbalances and prolonged QT interval. Amiodarone and beta-miguel a held. He was bradycardic which would prolong the QT interval further. No torsades or any concern for syncope. Continue to hold medications. Monitor electrolytes and replete potassium and magnesium. Going forward I would avoid giving more amiodarone although it has long half-life and is not leaving his system for few months. Alcohol abstinence. Thank you for allowing me to participate in the care of your patient. Please feel free to contact me if you have any questions. Time Spent With Patient Time: Total time managing care of this patient today ____ minutes. Progress Note: Quality Stroke Does the patient have a stroke diagnosis?: No Procedures Date of Service Date of Service: 02/08/24
[2024-02-08] MEDS: Potassium Chloride ER 20 MEQ TAB.ER.PRT 40 MEQ PO (12:03)
--- NOTE | 2024-02-08 12:03 | MHC.RECOVRN ---
Met with pt in ED21 after consult placed to Addiction Medicine for alcohol use. Pt had presented to the ED for increased weakness, has bilateral AKA. Upon evaluation, pt admitted for SUN, alcohol induced hepatitis, acute hypokalemia, and hypomagnesemia. Pt also on phenobarb protocol. Pt laying in bed, eyes closed, wakes to voice, engages in conversation but guarded regarding alcohol use. . Pt reports currently drinking 4-5 shots Rony Beam daily x 1 month. Pt reports prior to one month ago being in recovery x 6 months. Pt states I just stopped. Pt reports longest period of time in recovery was 6-8 months. Pt denies hx ATS admission, does endorse hospitalizations for treatment of alcohol withdrawal. Pt denies hx seizures, however, reports hallucinating sometimes. Pt denies ever experiencing cravings for alcohol. Denies hx SIA. Denies family hx AUD. Pt states I can stop on the drop of a dime if I want to. Pt reports he does have a couple friends who are active with AA, however, does not find AA helpful. Pt is open to any help I can get without leaving my apartment. Pt reports he has hobbies, including model trains. Discussed recovery supports and resources, pt open to job coach, declines other referrals. Pt accepting of written resources and t/w contact information if needed. Pt denies questions or concerns for t/w. Discussed with Jaqueline Valencia APRN. Plan for job coach to meet with pt this evening.
--- NOTE | 2024-02-08 14:00 | PC.NURSE ---
pt was switched from stretcher to a hospital bed. pt denies pain, vss, ns running at 100 ml/hr. no complaints at this time.
[2024-02-08] MEDS: 0.9 % Sodium Chloride Flush 3 ML SYRINGE IVFLUSH ×2 (15:39→21:53)
--- NOTE | 2024-02-08 16:58 | MHC.RECOVSUP ---
? Reason for consult Recovery Support o Current location: ED 21 o Identified substance use concern: Alcohol - Support ? Intervention: o Community resources provided o Harm reduction discussion ? Plan: <del>o</del> <del>Referral</del> <del>to</del> <del>[facility]</del> <del>o</del> <del>Bed</del> <del>search</del> <del>in</del> <del>progress</del> <del>to</del> <del>o</del> <del>Follow</del> <del>up</del> <del>tomorrow</del> <del>o</del> <del>Patient</del> <del>awaiting</del> <del>crisis</del> <del>evaluation</del> <del>o</del> <del>Patient</del> <del>to</del> <del>follow</del> <del>up</del> <del>with</del> <del>[facility]</del> <del>after</del> <del>discharge</del> ? Additional information: Met with patient and we had a good recovery talk.. we talked about resources that could work for him.. we talked about getting a head men's golf coach and harm reduction..
--- NOTE | 2024-02-08 18:57 | PC.NURSE ---
pt no longer npo. telephone order from Dr. Mccann to start regular diet.
--- NOTE | 2024-02-08 20:08 | MHC.EDTECH ---
Patient bed pad changed and repositioned
--- NOTE | 2024-02-08 20:23 | PC.NURSE ---
assumed care at 1900, pt awake, and oriented x4, feeds himself, NS infusing
[2024-02-08] MEDS: Atorvastatin Calcium 40 MG TABLET PO (21:53)
[2024-02-09] VITALS (8 sets, daily range): BP systolic 98–158; BP diastolic 66–85; PULSE 68–96; RESP 16–20; TEMP 36–37.4; O2SAT 92–99; BMI 19.3
--- NOTE | 2024-02-09 | ECG_ITS ---
Test Reason : prolonged QTC Blood Pressure : / mmHG Vent. Rate : 074 BPM Atrial Rate : 074 BPM P-R Int : 308 ms QRS Dur : 206 ms QT Int : 508 ms P-R-T Axes : -06 -44 064 degrees QTc Int : 563 ms Sinus rhythm with 1st degree A-V block Left axis deviation Right bundle branch block Inferior infarct (cited on or before 08-FEB-2024) Abnormal ECG When compared with ECG of 08-FEB-2024 11:05, Sinus rhythm has replaced Atrial fibrillation Right bundle branch block has replaced Non-specific intra-ventricular conduction block Referred By: Mamadou Call Electronically Signed By:Mamadou Call
--- NOTE | 2024-02-09 | ECG_ITS ---
Test Reason : sinus pause Blood Pressure : / mmHG Vent. Rate : 040 BPM Atrial Rate : 000 BPM P-R Int : 000 ms QRS Dur : 220 ms QT Int : 480 ms P-R-T Axes : 000 258 012 degrees QTc Int : 391 ms Atrial fibrillation with slow ventricular response with ventricular escape complexes Right bundle branch block Possible Lateral infarct , age undetermined Inferior infarct (cited on or before 08-FEB-2024) Abnormal ECG When compared with ECG of 09-FEB-2024 10:15, Atrial fibrillation has replaced Sinus rhythm Vent. rate has decreased BY 34 BPM Borderline criteria for Lateral infarct are now Present QT has shortened Referred By: Ivy Bull Electronically Signed By:Mamadou Call
--- NOTE | 2024-02-09 02:21 | HO.SKINPHOTO ---
Location: sacrum/coccyx
[2024-02-09 06:26] LABS: Hematocrit 28.3 % (42.0-52.0); Hemoglobin 9.3 g/dl (14.0-18.0); Mean Corpuscular HGB Conc 32.9 g/dl (31.0-36.0); Mean Corpuscular Hemoglobin 32.2 pg (27.0-33.0); Mean Corpuscular Volume 97.9 fL (80.0-98.0); Mean Platelet Volume 10.1 fL (9.4-12.4); NRBC Pct Auto 0.6 /100WBC (0.0-0.2); Red Blood Count 2.89 X10*6/uL (4.60-5.80); Red Cell Distribution Width 18.6 % (11.0-16.0)
[2024-02-09 06:27] LABS: Platelet Count 87 X10*3/uL (160-400)
[2024-02-09 06:48] LABS: Alanine Aminotransferase 33 U/L (0-40); Albumin Level 3.2 g/dL (3.5-5.0); Alkaline Phosphatase 109 U/L (39-117); Anion Gap 15 (12-20); Aspartate Amino Transferase 207 U/L (5-37); Bilirubin Direct 1.9 mg/dL (0.0-0.5); Bilirubin Total 2.5 mg/dL (0.0-1.0); Blood Urea Nitrogen 15 mg/dL (9-16); Calcium 7.3 mg/dL (8.4-10.2); Carbon Dioxide 22 mmol/L (22-29); Chloride 105 mmol/L (96-108); Estimated Glomerular Filt Rate > 60; Glucose Fasting 84 mg/dL (60-99); Potassium 3.6 mmol/L (3.3-5.1); Sodium 138 mmol/L (135-145); Total Protein 5.3 g/dL (6.5-8.0)
[2024-02-09 07:48] LABS: Magnesium 1.3 mg/dL (1.6-2.6)
[2024-02-09] MEDS: Magnesium Sulfate/H2O 2 GM/50 ML PIGGYBACK IV ×2 (08:38→23:30)
[2024-02-09] MEDS: Gabapentin 100 MG CAPSULE PO ×3 (08:40→21:28)
[2024-02-09] MEDS: Thiamine HCL 100 MG in 0.9 % Sodium Chloride 100 ML 202 MG IV (08:41)
[2024-02-09] MEDS: Magnesium Oxide 400 MG TABLET 800 MG PO (08:41)
[2024-02-09] MEDS: PHENobarbitaL 15 MG TABLET PO ×2 (08:41→21:28)
[2024-02-09] MEDS: Folic Acid 1 MG TABLET PO (08:41)
[2024-02-09] MEDS: Magnesium Oxide 400 MG TABLET PO ×2 (08:41→16:44)
[2024-02-09] MEDS: 0.9 % Sodium Chloride Flush 3 ML SYRINGE IVFLUSH ×3 (08:42→21:29)
--- NOTE | 2024-02-09 09:52 | P.PNIM_ITS ---
Subjective Subjective Date of Service: 02/09/24 Interval History: Strength continues to improve Physical Exam 2 Vital Signs: Vital Signs: Last Vital Signs Temp 97.9 F 02/09/24 07:11 Pulse 71 02/09/24 07:11 Resp 18 02/09/24 07:11 BP 135/85 02/09/24 07:11 Pulse Ox 99 02/09/24 07:11 O2 Del Method Room Air 02/09/24 07:11 BMI result Body Mass Index 37.5 General: AO X 3, no acute distress Resp: CTA bilateral, no accessory muscles used CVS: S1,S2,RRR GI: soft, non tender, non distended Neuro: motor grossly intact, alert Psych: appropriate affect, appropriate insight bilateral AKA Objective Data Active Medications Acetaminophen (Acetaminophen 325 Mg Tablet) 650 mg PO Q6H PRN PRN Reason: Pain, Mild (Pain Scale 1-3) Albuterol/Ipratropium (Albuterol/Iprat 2.5/0.5mg 3 Ml Ampul.Neb) 3 ml INHALE RQ4H WHILE AWAKE PRN PRN Reason: shortness of breath/wheezing Atorvastatin Calcium (Atorvastatin Calcium 40 Mg Tablet) 40 mg PO BEDTIME [facility] Last Admin: 02/08/24 21:53 Dose: 40 mg Documented By: CLAIR Folic Acid (Folic Acid 1 Mg Tablet) 1 mg PO DAILY [facility] Last Admin: 02/09/24 08:41 Dose: 1 mg Documented By: HOLLY Gabapentin (Gabapentin 100 Mg Capsule) 100 mg PO TID [facility] Last Admin: 02/09/24 08:40 Dose: 100 mg Documented By: HOLLY Thiamine HCl 100 mg/ Sodium (Chloride) 101 mls @ 202 mls/hr IV DAILY [facility] Last Admin: 02/09/24 08:41 Dose: 202 mls/hr Documented By: HOLLY Magnesium Hydroxide (Milk Of Magnesia 30 Ml Oral.Susp) 30 ml PO DAILY PRN PRN Reason: Constipation Magnesium Oxide (Magnesium Oxide 400 Mg Tablet) 400 mg PO BIDPC [facility] Last Admin: 02/09/24 08:41 Dose: 400 mg Documented By: HOLLY Pharmacy Consult (Consult Rx Etoh Phenob Im/Po) 1 each MISCELLANE ONCE PRN; Protocol PRN Reason: Consult order Phenobarbital (Phenobarbital 15 Mg Tablet) 15 mg PO BID [facility] Stop: 02/10/24 21:01 Last Admin: 02/09/24 08:41 Dose: 15 mg Documented By: HOLLY Phenobarbital (Phenobarbital 15 Mg Tablet) 15 mg PO DAILY [facility] Stop: 02/12/24 09:01 Sodium Chloride (0.9 % Sodium Chloride Flush 3 Ml Syringe) 3 ml IVFLUSH QSHIFT [facility] Last Admin: 02/09/24 08:42 Dose: 3 ml Documented By: HOLLY Labs 02/09/24 05:48 02/09/24 05:48 Labs: Laboratory Results - last 24 hr 02/09/24 05:48 MCV 97.9 MCH 32.2 MCHC 32.9 RDW 18.6 H Plt Count 87 L MPV 10.1 Absolute Nucleated RBC 0.030 H Nucleated RBC % (auto) 0.6 H Anion Gap 15 Estim Creat Clear Calc 49.0 Estimated GFR > 60 Fasting Glucose 84 Calcium 7.3 L Magnesium 1.3 L* Total Bilirubin 2.5 H Direct Bilirubin 1.9 H AST 207 H ALT 33 Alkaline Phosphatase 109 Total Protein 5.3 L Albumin 3.2 L Microbiology Microbiology Results: Microbiology 02/06/24 16:21 Blood Culture - Preliminary Blood - Venous No growth after 48 hours. 02/06/24 15:47 Blood Culture - Preliminary Blood - Venous No growth after 48 hours. Assessment and Plan (1) Alcoholic hepatitis: Status: Acute Plan 63M PMH persistent atrial fibrillation on Eliquis, chronic systolic CHF, peripheral artery disease, COPD, hypertension, hyperlipidemia, alcohol dependence, bilateral above-knee amputation presented with weakness and found to have severe electrolyte abnormalities. Alcohol dependence complicated by acute severe hypokalemia Replaced, monitor Acute hypomagnesemia Replace, monitor Acute kidney injury Resolved qt prolongation avoid qt prlonging drugs, improved with potassium and mag supplement, monitor on tele Acute alcoholic hepatitis Continue high-protein diet, monitor, no steroids for now GI appreciated etoh dependence with witdhrawal phenobarb Gallbladder distention Low suspicion for cholecystitis, likely due to hepatitis Acute on chronic normocytic anemia Likely inflammatory, at risk for acute blood loss anemia, transfused 1 unit PRBC, on PPI, GI following Monitor CBC - stable COPD Duo nebs as needed Persistent atrial fibrillation restartng Eliquis, metoprolol, amiodarone Chronic systolic CHF Holding Lasix for severe hypokalemia, monitor DVT prophylaxis with Eliquis Full code reason for continued hospitalization: Monitoring for GI bleed, low mag Quality Stroke Does the patient have a stroke diagnosis?: No VTE Prior VTE?: No VTE Risk Level:: Medical - moderate - high VTE Device Contraindication: Treatment Not Indicated VTE Drug Contraindication: N/A - Med Ordered
[2024-02-09] MEDS: Potassium Chloride ER 20 MEQ TAB.ER.PRT 40 MEQ PO ×2 (11:03→23:30)
[2024-02-09] MEDS: Apixaban 5 MG TABLET PO ×2 (11:05→21:28)
--- NOTE | 2024-02-09 11:27 | PM.PNCARD ---
Subjective Subjective Date of Service: 02/09/24 Interval history: Seen examined at bedside. He is short of breath and wheezing today. Physical Exam Vital Signs: Last Vital Signs Temp 96.9 F 02/09/24 11:17 Pulse 69 02/09/24 11:17 Resp 18 02/09/24 11:17 BP 119/73 02/09/24 11:17 Pulse Ox 97 02/09/24 11:17 O2 Del Method Room Air 02/09/24 11:17 BMI result Body Mass Index 37.5 GENERAL APPEARANCE: Sick appearing. Frail. NECK: no carotid bruit, + jugular venous distention. SKIN: no suspicious lesions, warm and dry. HEART: no murmurs, irregular rate and rhythm. Bradycardic. LUNGS: Bilateral expiratory wheezes. ABDOMEN: soft, nontender. EXTREMITIES: Bilateral above-knee amputation. PERIPHERAL PULSES: equal. NEUROLOGIC: No gross deficits, AAO X 3 Objective Labs and Meds 02/09/24 05:48 02/09/24 05:48 Lab results: Laboratory Results - last 24 hr 02/09/24 05:48 WBC 5.0 RBC 2.89 L Hgb 9.3 L Hct 28.3 L D MCV 97.9 MCH 32.2 MCHC 32.9 RDW 18.6 H Plt Count 87 L MPV 10.1 Absolute Nucleated RBC 0.030 H Nucleated RBC % (auto) 0.6 H Sodium 138 Potassium 3.6 Chloride 105 Carbon Dioxide 22 Anion Gap 15 BUN 15 Creatinine 0.77 Estim Creat Clear Calc 49.0 Estimated GFR > 60 Fasting Glucose 84 Calcium 7.3 L Magnesium 1.3 L* Total Bilirubin 2.5 H Direct Bilirubin 1.9 H AST 207 H ALT 33 Alkaline Phosphatase 109 Total Protein 5.3 L Albumin 3.2 L Progress Note: A&P Assessment and plan (1) Prolonged QT interval: Status: Acute (2) Acute congestive heart failure: Status: Acute Plan 63-year-old gentleman with alcoholism and previous cardiomyopathy with improvement in ejection fraction on repeat echo on this admission. He is significantly abnormal EKG with prolonged QT interval but this is improving after holding amiodarone and replacing potassium and magnesium. No torsades. Wheezing on examination with elevated JVD. I think we should give him IV diuretics. Obviously we have to monitor electrolytes closely as he is baseline hypokalemic due to alcoholism and may need repletion. Amiodarone should be discontinued and I do not think it should be resumed as he leaves the hospital given significantly prolonged QT interval. There is a good chance he will continue to drink as he goes home. Thank you for allowing me to participate in the care of your patient. Please feel free to contact me if you have any questions. Time Spent With Patient Time: Total time managing care of this patient today ____ minutes. Progress Note: Quality Stroke Does the patient have a stroke diagnosis?: No Procedures Date of Service Date of Service: 02/09/24
--- NOTE | 2024-02-09 13:38 | MHC.CLN ---
PT WITH INCREASED NUTRITION RISK R/T PRESSURE INJURY DIET RX: REGULAR-APPROPRIATE RECOMMEND ADDING ENSURE TID TO PROMOTE WOUND HEALING SUPPLEMENT PROVIDES 1050KCALS, 60G PROTEIN MONITOR PO INTAKE AND ENCOURAGE SUPPLEMENTS SEE ALSO FULL CLINICAL NUTRITION ASSESSMENT
--- NOTE | 2024-02-09 15:23 | MHC.CM.PN ---
EMR reviewed and per MD rounds, pt is not medically cleared for discharge home due to monitoring for GI bleed, and low mag levels. Anticipating pt will discharge home tomorrow with resumption of previous [facility] services.
--- NOTE | 2024-02-09 17:28 | HO.WOUND ---
Wound Consult: Initial 63yr old?Male admitted to [facility] [place] on 02/06/24 - See progress notes and H&P for detailed history.? Wound consult placed for Sacral wound POA.? Patient agreeable to assessment and photo documentation.? Patient reports the wound is in relation to his sitting in his wheel chair most days. He reports she does use a special cushion but does not see a specialist for this. Patient educated on importance of frequent position changes and moisture management - he reports understanding. Sacrum Etiology: Stage 3 Pressure Injury ??Present on Admission Measurements: 6cm x 4cm x 0.2cm Wound Bed: red pink tissue with marbled adherent yellow slough able to visualize granulation buds throughout Drainage / Odor: Moderate Veliz yellow drainage - no odor Edges: ? irregular Meg wound: MASD (Moisture Associated Skin Damage) ? No Induration, Fluctuance or Warmth noted - Noted for scar tissue to bilateral ischium suspect previous full thickness injury to this area putting it at significant risk for future breakdown. Recommend off loading and consider foam application. Pain: reports mild pain Goals of Treatment: ? Durafiber AG to manage moisture and allow for autolytic healing. Recommendations: 1. Turn and Reposition every 2 hours and as needed for patient comfort.? Use pillows or wedges to support off loading positions. 2. Off Load all bony prominences with use of pillows and heel boots if needed.? Apply Preventative foams where needed. ? 3. Monitor for incontinence and moisture control, use barrier creams when needed for prevention and treatment. 4. Provide adequate and supplemental nutrition.? 5. Order or Continue low air loss mattress. 6. When applicable maintain blood glucose levels per Providers order. 7. Sacrum - Off Load Pressure - Cleanse with NS, Pat dry.? Apply barrier to periwound, lightly pack with Durafiber AG, be sure to leave a wick to easy removal.? Cover with Foam dressing.? Change every 3 days. Peel back and asses daily. Re-consult wound care Nurse for wound deterioration or wound changes.
--- NOTE | 2024-02-09 20:00 | PM.EVENT ---
Event Note Date of Service: 02/09/24 Event Note: Was notified by the nurse that patient had a sinus pause of 4.1 seconds. Blood pressure 118/64. Patient asymptomatic. Time Spent With Patient Time: Total time managing care of this patient today ____ minutes.
[2024-02-09] MEDS: Atorvastatin Calcium 40 MG TABLET PO (21:28)
[2024-02-09 22:57] LABS: Anion Gap 11 (12-20); Blood Urea Nitrogen 12 mg/dL (9-16); Calcium 7.4 mg/dL (8.4-10.2); Carbon Dioxide 27 mmol/L (22-29); Chloride 106 mmol/L (96-108); Creatinine Clr Calc Pharmacy 67.7; Estimated Glomerular Filt Rate > 60; Glucose Random 100 mg/dL (60-115); Magnesium 1.5 mg/dL (1.6-2.6); Potassium 3.5 mmol/L (3.3-5.1); Sodium 140 mmol/L (135-145)
[2024-02-10 03:54] VITALS: BP 122/77; PULSE 65; RESP 20; TEMP 36.4; O2SAT 99
--- NOTE | 2024-02-10 04:29 | PC.NURSE ---
Pt with frequent pauses overnight. From 3 secs to as long as 6.7 seconds long. Most frequent as 4 second pauses. Patient asymptomatic each time. Vital signs stable. MD Bull made aware. Labs drawn. K and Mag repleted. Per MD, no need to replace calcium at this time. EKG ordered and completed. MD Call made aware via tigertext. As patient is asymptomatic and vitals are stable, continue to monitor for now. If symptomatic then pacemaker will be needed.
[2024-02-10 06:36] LABS: Hematocrit 25.1 % (42.0-52.0); Hemoglobin 8.4 g/dl (14.0-18.0); Mean Corpuscular HGB Conc 33.5 g/dl (31.0-36.0); Mean Corpuscular Hemoglobin 32.3 pg (27.0-33.0); Mean Corpuscular Volume 96.5 fL (80.0-98.0); Mean Platelet Volume 10.3 fL (9.4-12.4); NRBC Pct Auto 0.6 /100WBC (0.0-0.2); Red Cell Distribution Width 18.4 % (11.0-16.0); White Blood Count 5.1 X10*3/uL (4.8-10.8)
[2024-02-10 06:40] LABS: Platelet Count 94 X10*3/uL (160-400)
[2024-02-10 06:54] LABS: Anion Gap 14 (12-20); Blood Urea Nitrogen 12 mg/dL (9-16); Calcium 7.8 mg/dL (8.4-10.2); Carbon Dioxide 25 mmol/L (22-29); Chloride 104 mmol/L (96-108); Creatinine Clr Calc Pharmacy 64.7; Estimated Glomerular Filt Rate > 60; Glucose Fasting 98 mg/dL (60-99); Potassium 3.8 mmol/L (3.3-5.1); Sodium 139 mmol/L (135-145)
[2024-02-10 08:00] VITALS: BP 107/69; PULSE 88; RESP 16; TEMP 36.3; O2SAT 99
--- NOTE | 2024-02-10 09:37 | P.PNIM_ITS ---
Subjective Subjective Date of Service: 02/10/24 Interval History: slow afib with 4 second pauses overnight, asymptomatic, feeling weak Physical Exam 2 Vital Signs: Vital Signs: Last Vital Signs Temp 97.3 F 02/10/24 08:00 Pulse 88 02/10/24 08:00 Resp 16 02/10/24 08:00 BP 107/69 02/10/24 08:00 Pulse Ox 99 02/10/24 08:00 O2 Del Method Room Air 02/10/24 08:00 BMI result Body Mass Index 19.3 GENERAL APPEARANCE: Sick appearing. Frail. NECK: no carotid bruit, + jugular venous distention. SKIN: no suspicious lesions, warm and dry. HEART: no murmurs, irregular rate and rhythm. Bradycardic. LUNGS: Bilateral expiratory wheezes. ABDOMEN: soft, nontender. EXTREMITIES: Bilateral above-knee amputation. PERIPHERAL PULSES: equal. NEUROLOGIC: No gross deficits, AAO X 3 Objective Data Active Medications Acetaminophen (Acetaminophen 325 Mg Tablet) 650 mg PO Q6H PRN PRN Reason: Pain, Mild (Pain Scale 1-3) Albuterol/Ipratropium (Albuterol/Iprat 2.5/0.5mg 3 Ml Ampul.Neb) 3 ml INHALE RQ4H WHILE AWAKE PRN PRN Reason: shortness of breath/wheezing Apixaban (Apixaban 5 Mg Tablet) 5 mg PO BID [facility] Last Admin: 02/09/24 21:28 Dose: 5 mg Documented By: BYRON Atorvastatin Calcium (Atorvastatin Calcium 40 Mg Tablet) 40 mg PO BEDTIME [facility] Last Admin: 02/09/24 21:28 Dose: 40 mg Documented By: BYRON Folic Acid (Folic Acid 1 Mg Tablet) 1 mg PO DAILY [facility] Last Admin: 02/09/24 08:41 Dose: 1 mg Documented By: HOLLY Gabapentin (Gabapentin 100 Mg Capsule) 100 mg PO TID [facility] Last Admin: 02/09/24 21:28 Dose: 100 mg Documented By: BYRON Thiamine HCl 100 mg/ Sodium (Chloride) 101 mls @ 202 mls/hr IV DAILY [facility] Last Infusion: 02/09/24 10:59 Dose: Infused Documented By: HOLLY Magnesium Hydroxide (Milk Of Magnesia 30 Ml Oral.Susp) 30 ml PO DAILY PRN PRN Reason: Constipation Magnesium Oxide (Magnesium Oxide 400 Mg Tablet) 400 mg PO BIDPC [facility] Last Admin: 02/09/24 16:44 Dose: 400 mg Documented By: HOLLY Pharmacy Consult (Consult Rx Etoh Phenob Im/Po) 1 each MISCELLANE ONCE PRN; Protocol PRN Reason: Consult order Phenobarbital (Phenobarbital 15 Mg Tablet) 15 mg PO BID [facility] Stop: 02/10/24 21:01 Last Admin: 02/09/24 21:28 Dose: 15 mg Documented By: BYRON Phenobarbital (Phenobarbital 15 Mg Tablet) 15 mg PO DAILY [facility] Stop: 02/12/24 09:01 Sodium Chloride (0.9 % Sodium Chloride Flush 3 Ml Syringe) 3 ml IVFLUSH QSHIFT [facility] Last Admin: 02/09/24 21:29 Dose: 3 ml Documented By: BYRON Labs 02/10/24 05:53 02/10/24 05:53 Labs: Laboratory Results - last 24 hr 02/09/24 02/10/24 22:37 05:53 MCV 96.5 MCH 32.3 MCHC 33.5 RDW 18.4 H Plt Count 94 L MPV 10.3 Absolute Nucleated RBC 0.030 H Nucleated RBC % (auto) 0.6 H Anion Gap 11 L 14 Estim Creat Clear Calc 67.7 64.7 Estimated GFR > 60 > 60 Random Glucose 100 Fasting Glucose 98 Calcium 7.4 L 7.8 L Magnesium 1.5 L 2.0 Assessment and Plan (1) Alcoholic hepatitis: Status: Acute Plan 63M PMH persistent atrial fibrillation on Eliquis, chronic systolic CHF, peripheral artery disease, COPD, hypertension, hyperlipidemia, alcohol dependence, bilateral above-knee amputation presented with weakness and found to have severe electrolyte abnormalities. Alcohol dependence complicated by acute severe hypokalemia Replaced, monitor Acute hypomagnesemia Replaced, monitor Acute kidney injury Resolved qt prolongation avoid qt prolonging drugs, improved with potassium and mag supplement, monitor on tele Acute alcoholic hepatitis Continue high-protein diet, monitor, no steroids for now GI appreciated etoh dependence with withdrawal phenobarb Gallbladder distention Low suspicion for cholecystitis, likely due to hepatitis Acute on chronic normocytic anemia Likely inflammatory, at risk for acute blood loss anemia, transfused 1 unit PRBC, on PPI, GI following Monitor CBC - stable COPD Duo nebs as needed Persistent atrial fibrillation with svr and pauses Eliquis, holding metoprolol, amiodarone follow up cardio Chronic systolic CHF Holding Lasix for severe hypokalemia, monitor DVT prophylaxis with Eliquis Full code reason for continued hospitalization: Monitoring for GI bleed, low mag Quality Stroke Does the patient have a stroke diagnosis?: No VTE Prior VTE?: No VTE Risk Level:: Medical - moderate - high VTE Device Contraindication: Treatment Not Indicated VTE Drug Contraindication: N/A - Med Ordered
[2024-02-10] MEDS: Thiamine HCL 100 MG in 0.9 % Sodium Chloride 100 ML 202 MG IV (09:54)
[2024-02-10] MEDS: Gabapentin 100 MG CAPSULE PO ×3 (09:57→22:09)
[2024-02-10] MEDS: PHENobarbitaL 15 MG TABLET PO ×2 (09:57→22:09)
[2024-02-10] MEDS: Folic Acid 1 MG TABLET PO (09:57)
[2024-02-10] MEDS: Magnesium Oxide 400 MG TABLET PO ×2 (09:57→18:24)
[2024-02-10] MEDS: Apixaban 5 MG TABLET PO ×2 (09:57→22:09)
[2024-02-10] MEDS: 0.9 % Sodium Chloride Flush 3 ML SYRINGE IVFLUSH ×3 (09:58→22:15)
[2024-02-10 11:19] VITALS: BP 111/73; PULSE 94; RESP 20; TEMP 36.3; O2SAT 93
--- NOTE | 2024-02-10 12:18 | PM.PNCARD ---
Subjective Subjective Date of Service: 02/10/24 Interval history: Seen examined at bedside. Denying any symptoms. Apparently overnight he had pauses in excess of 6 seconds. He has permanent atrial fibrillation. Has been off beta-miguel a and amiodarone due to prolonged QT interval. Physical Exam Vital Signs: Last Vital Signs Temp 97.3 F 02/10/24 11:19 Pulse 94 02/10/24 11:19 Resp 20 02/10/24 11:19 BP 111/73 02/10/24 11:19 Pulse Ox 93 02/10/24 11:19 O2 Del Method Room Air 02/10/24 11:19 BMI result Body Mass Index 19.3 GENERAL APPEARANCE: In no distress. NECK: no carotid bruit, no jugular venous distention. SKIN: no suspicious lesions, warm and dry. HEART: no murmurs, irregular rate and rhythm. LUNGS: Clear to auscultation. ABDOMEN: soft, nontender. EXTREMITIES: Bilateral above-knee amputation. PERIPHERAL PULSES: equal. NEUROLOGIC: No gross deficits, AAO X 3 Objective Labs and Meds 02/10/24 05:53 02/10/24 05:53 Lab results: Laboratory Results - last 24 hr 02/09/24 02/10/24 22:37 05:53 WBC 5.1 RBC 2.60 L Hgb 8.4 L Hct 25.1 L MCV 96.5 MCH 32.3 MCHC 33.5 RDW 18.4 H Plt Count 94 L MPV 10.3 Absolute Nucleated RBC 0.030 H Nucleated RBC % (auto) 0.6 H Sodium 140 139 Potassium 3.5 3.8 Chloride 106 104 Carbon Dioxide 27 25 Anion Gap 11 L 14 BUN 12 12 Creatinine 0.87 0.91 Estim Creat Clear Calc 67.7 64.7 Estimated GFR > 60 > 60 Random Glucose 100 Fasting Glucose 98 Calcium 7.4 L 7.8 L Magnesium 1.5 L 2.0 Imaging Radiologist's impression: Impressions Chest X-Ray 02/09/24 11:40 IMPRESSION: Low lung volumes. Increasing atelectasis. Progress Note: A&P Assessment and plan (1) Prolonged QT interval: Status: Acute (2) Acute congestive heart failure: Status: Acute Plan 63-year-old gentleman with alcoholism and previous cardiomyopathy with improvement in ejection fraction on repeat echo on this admission. He is significantly abnormal EKG with prolonged QT interval but this is improving after holding amiodarone and replacing potassium and magnesium. No torsades. Appears comfortable today does not look overloaded. Amiodarone should be discontinued and I do not think it should be resumed as he leaves the hospital given significantly prolonged QT interval. Thank you for allowing me to participate in the care of your patient. Please feel free to contact me if you have any questions. Time Spent With Patient Time: Total time managing care of this patient today ____ minutes. Progress Note: Quality Stroke Does the patient have a stroke diagnosis?: No Procedures Date of Service Date of Service: 02/10/24
[2024-02-10 15:17] VITALS: BP 103/79; PULSE 88; RESP 16; TEMP 36.1; O2SAT 97
[2024-02-10 20:00] VITALS: BP 116/73; PULSE 87; RESP 20; TEMP 36.6; O2SAT 97
[2024-02-10 21:41] LABS: Glucose, Whole Blood 107 mg/dL (60-115)
[2024-02-10] MEDS: Atorvastatin Calcium 40 MG TABLET PO (22:09)
[2024-02-10 23:21] VITALS: BP 107/72; PULSE 89; RESP 20; TEMP 36.8; O2SAT 98
[2024-02-11 03:38] VITALS: BP 111/65; PULSE 98; RESP 20; TEMP 37.4; O2SAT 98
[2024-02-11 07:06] LABS: Hemoglobin 8.1 g/dl (14.0-18.0); Mean Corpuscular HGB Conc 32.4 g/dl (31.0-36.0); Mean Corpuscular Hemoglobin 31.4 pg (27.0-33.0); Mean Corpuscular Volume 96.9 fL (80.0-98.0); Mean Platelet Volume 10.6 fL (9.4-12.4); Platelet Count 101 X10*3/uL (160-400); Red Blood Count 2.58 X10*6/uL (4.60-5.80); Red Cell Distribution Width 18.5 % (11.0-16.0); White Blood Count 5.7 X10*3/uL (4.8-10.8)
[2024-02-11 07:17] LABS: Anion Gap 11 (12-20); Blood Urea Nitrogen 14 mg/dL (9-16); Calcium 7.7 mg/dL (8.4-10.2); Carbon Dioxide 24 mmol/L (22-29); Chloride 105 mmol/L (96-108); Creatinine Clr Calc Pharmacy 67.7; Estimated Glomerular Filt Rate > 60; Glucose Fasting 99 mg/dL (60-99); Potassium 3.6 mmol/L (3.3-5.1); Sodium 136 mmol/L (135-145)
[2024-02-11 07:28] LABS: Magnesium 1.4 mg/dL (1.6-2.6)
[2024-02-11] MEDS: Gabapentin 100 MG CAPSULE PO ×3 (07:59→20:11)
[2024-02-11 08:00] VITALS: BP 98/60; PULSE 89; RESP 20; TEMP 36.5; O2SAT 97
[2024-02-11] MEDS: Magnesium Oxide 400 MG TABLET PO (08:01)
[2024-02-11] MEDS: PHENobarbitaL 15 MG TABLET PO (08:01)
[2024-02-11] MEDS: Folic Acid 1 MG TABLET PO (08:01)
[2024-02-11] MEDS: Apixaban 5 MG TABLET PO ×2 (08:01→20:11)
[2024-02-11] MEDS: Thiamine HCL 100 MG in 0.9 % Sodium Chloride 100 ML 202 MG IV (08:01)
[2024-02-11] MEDS: 0.9 % Sodium Chloride Flush 3 ML SYRINGE IVFLUSH ×3 (08:02→20:19)
[2024-02-11] MEDS: Magnesium Sulfate/H2O 2 GM/50 ML PIGGYBACK IV (08:02)
--- NOTE | 2024-02-11 09:01 | HO.PM.IMPN ---
Subjective Subjective Date of Service: 02/11/24 Interval History: no further pauses Physical Exam Vital Signs: Vital Signs: Last Vital Signs Temp 97.7 F 02/11/24 08:00 Pulse 89 02/11/24 08:00 Resp 20 02/11/24 08:00 BP 98/60 02/11/24 08:00 Pulse Ox 97 02/11/24 08:00 O2 Del Method Room Air 02/11/24 08:00 BMI result Body Mass Index 19.3 GENERAL APPEARANCE: In no distress. NECK: no carotid bruit, no jugular venous distention. SKIN: no suspicious lesions, warm and dry. HEART: no murmurs, irregular rate and rhythm. LUNGS: Clear to auscultation. ABDOMEN: soft, nontender. EXTREMITIES: Bilateral above-knee amputation. PERIPHERAL PULSES: equal. NEUROLOGIC: No gross deficits, AAO X 3 Objective Data Active Medications Acetaminophen (Acetaminophen 325 Mg Tablet) 650 mg PO Q6H PRN PRN Reason: Pain, Mild (Pain Scale 1-3) Albuterol/Ipratropium (Albuterol/Iprat 2.5/0.5mg 3 Ml Ampul.Neb) 3 ml INHALE RQ4H WHILE AWAKE PRN PRN Reason: shortness of breath/wheezing Apixaban (Apixaban 5 Mg Tablet) 5 mg PO BID [facility] Last Admin: 02/11/24 08:01 Dose: 5 mg Documented By: JASON Atorvastatin Calcium (Atorvastatin Calcium 40 Mg Tablet) 40 mg PO BEDTIME [facility] Last Admin: 02/10/24 22:09 Dose: 40 mg Documented By: BERNARDO Folic Acid (Folic Acid 1 Mg Tablet) 1 mg PO DAILY [facility] Last Admin: 02/11/24 08:01 Dose: 1 mg Documented By: JASON Gabapentin (Gabapentin 100 Mg Capsule) 100 mg PO TID [facility] Last Admin: 02/11/24 07:59 Dose: 100 mg Documented By: JASON Thiamine HCl 100 mg/ Sodium (Chloride) 101 mls @ 202 mls/hr IV DAILY [facility] Last Infusion: 02/11/24 08:44 Dose: Infused Documented By: JASON Magnesium Sulfate (Magnesium Sulfate/H2o) 2 gm in 50 mls @ 25 mls/hr IV ONCE ONE Stop: 02/11/24 09:28 Last Admin: 02/11/24 08:02 Dose: 25 mls/hr Documented By: JASON Magnesium Hydroxide (Milk Of Magnesia 30 Ml Oral.Susp) 30 ml PO DAILY PRN PRN Reason: Constipation Magnesium Oxide (Magnesium Oxide 400 Mg Tablet) 800 mg PO BIDPC [facility] Pharmacy Consult (Consult Rx Etoh Phenob Im/Po) 1 each MISCELLANE ONCE PRN; Protocol PRN Reason: Consult order Phenobarbital (Phenobarbital 15 Mg Tablet) 15 mg PO DAILY [facility] Stop: 02/12/24 09:01 Last Admin: 02/11/24 08:01 Dose: 15 mg Documented By: JASON Potassium Chloride (Potassium Chloride Er 20 Meq Tab.Er.Prt) 40 meq PO ONCE ONE Stop: 02/11/24 09:01 Sodium Chloride (0.9 % Sodium Chloride Flush 3 Ml Syringe) 3 ml IVFLUSH QSHIFT [facility] Last Admin: 02/11/24 08:02 Dose: 3 ml Documented By: JASON Labs 02/11/24 06:13 02/11/24 06:13 Labs: Laboratory Results - last 24 hr 02/10/24 02/11/24 21:36 06:13 MCV 96.9 MCH 31.4 MCHC 32.4 RDW 18.5 H Plt Count 101 L MPV 10.6 Absolute Nucleated RBC 0.000 Nucleated RBC % (auto) 0.0 Anion Gap 11 L Estim Creat Clear Calc 67.7 Estimated GFR > 60 POC Glucose 107 Fasting Glucose 99 Calcium 7.7 L Magnesium 1.4 L* Assessment and Plan (1) Alcoholic hepatitis: Status: Acute Plan 63M PMH persistent atrial fibrillation on Eliquis, chronic systolic CHF, peripheral artery disease, COPD, hypertension, hyperlipidemia, alcohol dependence, bilateral above-knee amputation presented with weakness and found to have severe electrolyte abnormalities. Alcohol dependence complicated by acute severe hypokalemia Replaced, monitor Acute hypomagnesemia Replace, monitor Acute kidney injury Resolved qt prolongation avoid qt prolonging drugs, improved with potassium and mag supplement, monitor on tele Acute alcoholic hepatitis Continue high-protein diet, monitor, no steroids for now GI appreciated etoh dependence with withdrawal rsolved Gallbladder distention Low suspicion for cholecystitis, likely due to hepatitis Acute on chronic normocytic anemia Likely inflammatory vs zieve syndrome, transfused 1 unit PRBC, on PPI Monitor CBC - stable COPD Duo nebs as needed Persistent atrial fibrillation with svr and pauses Eliquis holding metoprolol, amiodarone resolved Chronic systolic CHF Holding Lasix for severe hypokalemia, monitor DVT prophylaxis with Eliquis Full code reason for continued hospitalization: low mag Quality Stroke Does the patient have a stroke diagnosis?: No VTE Prior VTE?: No VTE Risk Level:: Medical - moderate - high VTE Device Contraindication: Treatment Not Indicated VTE Drug Contraindication: N/A - Med Ordered
[2024-02-11] MEDS: Potassium Chloride ER 20 MEQ TAB.ER.PRT 40 MEQ PO (10:05)
[2024-02-11 12:00] VITALS: BP 135/70; PULSE 75; RESP 16; TEMP 36.2; O2SAT 95
[2024-02-11 16:00] VITALS: BP 150/79; PULSE 76; RESP 16; TEMP 37; O2SAT 97
[2024-02-11] MEDS: Magnesium Oxide 400 MG TABLET 800 MG PO (17:20)
--- NOTE | 2024-02-11 17:56 | P.PNGI_ITS ---
Subjective Subjective Date of Service: 02/11/24 Interval History: improved mag borderline, having some pauses LFT have been improving no melena, or rectal bleeding Critical Care Time (minutes): 0 Physical Exam 2 Vital Signs: Vital Signs: Last Vital Signs Temp 98.6 F 02/11/24 16:00 Pulse 76 02/11/24 16:00 Resp 16 02/11/24 16:00 BP 150/79 H 02/11/24 16:00 Pulse Ox 97 02/11/24 16:00 O2 Del Method Room Air 02/11/24 16:00 BMI result Body Mass Index 19.3 EXAM: GENERAL: The patient is well developed and nontoxic. VITAL SIGNS:see workflow HEENT: Nonicteric sclerae, PERRLA, EOMI. Oropharynx clear. Moist mucous membranes. Conjunctivae appear well perfused. No thyroid mass. CHEST: Chest wall is nontender. HEART: Regular rate and rhythm without murmurs. LUNGS: Clear to auscultation bilaterally. ABDOMEN: Soft, positive bowel sounds, nontender, no organomegaly.no flank tenderness SKIN: No rash, no excessive bruising, petechiae, or purpura. NEUROLOGIC: Cranial nerves II-XII intact without motor/sensory deficit. Psych: normal affect b/l amputation above knee Objective Data Labs 02/11/24 06:13 02/11/24 06:13 Labs: Laboratory Results - last 24 hr 02/10/24 02/11/24 21:36 06:13 WBC 5.7 RBC 2.58 L Hgb 8.1 L Hct 25.0 L MCV 96.9 MCH 31.4 MCHC 32.4 RDW 18.5 H Plt Count 101 L MPV 10.6 Absolute Nucleated RBC 0.000 Nucleated RBC % (auto) 0.0 Sodium 136 Potassium 3.6 Chloride 105 Carbon Dioxide 24 Anion Gap 11 L BUN 14 Creatinine 0.87 Estim Creat Clear Calc 67.7 Estimated GFR > 60 POC Glucose 107 Fasting Glucose 99 Calcium 7.7 L Magnesium 1.4 L* Microbiology Microbiology Results: Microbiology 02/06/24 15:47 Blood - Venous Blood Culture - Final No growth after 5 days. 02/06/24 16:21 Blood - Venous Blood Culture - Preliminary No growth after 48 hours. Procedures Date of Service Date of Service: 02/11/24 Progress Note: A&P Assessment and plan (1) Alcoholic hepatitis: Status: Acute Assessment and Plan: 1/ Alcoholic hepatitis, LFT improving 2/ anemia, may have zieves --v high Ldh also hzd blood on UA plan: 1/ check iron , b12 and folate 2/ if hg stable then o/p egd,colo 3/ if any overt gi bleeding then inpatient egd,colon 4/ hold on steroids Time Spent With Patient Time: Total time managing care of this patient today ____ minutes. Quality Stroke Does the patient have a stroke diagnosis?: No VTE Prior VTE?: No VTE Risk Level:: Medical - moderate - high VTE Device Contraindication: Treatment Not Indicated VTE Drug Contraindication: N/A - Med Ordered
[2024-02-11 19:12] LABS: Ferritin 848 ng/mL (20-250)
[2024-02-11 19:27] LABS: Folate 12.4 ng/mL (> or = 4.0); Vitamin B12 > 2000 pg/mL (200-900)
[2024-02-11 20:00] VITALS: BP 141/77; PULSE 75; RESP 20; TEMP 37.7; O2SAT 99
[2024-02-11] MEDS: Acetaminophen 325 MG TABLET 650 MG PO (20:11)
[2024-02-11] MEDS: Atorvastatin Calcium 40 MG TABLET PO (20:11)
[2024-02-11] MEDS: Hydrocortisone 1 % Cream 28.35 GM TUBE 1 APPL TOPICAL (20:12)
[2024-02-12] VITALS: BP 132/76; PULSE 75; RESP 20; TEMP 37.1; O2SAT 98
[2024-02-12 04:00] VITALS: BP 125/73; PULSE 73; RESP 20; TEMP 37.2; O2SAT 98
[2024-02-12 06:29] LABS: Hematocrit 23.8 % (42.0-52.0); Hemoglobin 7.9 g/dl (14.0-18.0); Mean Corpuscular HGB Conc 33.2 g/dl (31.0-36.0); Mean Corpuscular Hemoglobin 31.9 pg (27.0-33.0); Mean Platelet Volume 10.4 fL (9.4-12.4); Platelet Count 102 X10*3/uL (160-400); Red Blood Count 2.48 X10*6/uL (4.60-5.80); Red Cell Distribution Width 17.7 % (11.0-16.0); White Blood Count 3.9 X10*3/uL (4.8-10.8)
[2024-02-12 07:08] LABS: Anion Gap 11 (12-20); Blood Urea Nitrogen 13 mg/dL (9-16); Calcium 7.5 mg/dL (8.4-10.2); Carbon Dioxide 24 mmol/L (22-29); Chloride 102 mmol/L (96-108); Creatinine Clr Calc Pharmacy 79.5; Estimated Glomerular Filt Rate > 60; Glucose Fasting 83 mg/dL (60-99); Potassium 3.7 mmol/L (3.3-5.1); Sodium 133 mmol/L (135-145)
[2024-02-12 07:33] VITALS: BP 138/80; PULSE 80; RESP 20; TEMP 36.9; O2SAT 96
[2024-02-12 07:42] LABS: Magnesium 1.4 mg/dL (1.6-2.6)
[2024-02-12] MEDS: Apixaban 5 MG TABLET PO ×2 (08:26→22:00)
[2024-02-12] MEDS: Folic Acid 1 MG TABLET PO (08:26)
[2024-02-12] MEDS: Magnesium Oxide 400 MG TABLET 800 MG PO ×2 (08:26→16:18)
[2024-02-12] MEDS: PHENobarbitaL 15 MG TABLET PO (08:26)
[2024-02-12] MEDS: Gabapentin 100 MG CAPSULE PO ×3 (08:26→21:45)
[2024-02-12] MEDS: Thiamine HCL 100 MG in 0.9 % Sodium Chloride 100 ML 202 MG IV (08:29)
[2024-02-12] MEDS: 0.9 % Sodium Chloride Flush 3 ML SYRINGE IVFLUSH ×3 (08:30→21:50)
[2024-02-12] MEDS: Magnesium Sulfate/H2O 2 GM/50 ML PIGGYBACK IV (09:14)
--- NOTE | 2024-02-12 11:18 | P.PNIM_ITS ---
Subjective Subjective Date of Service: 02/12/24 Interval History: no further pauses Physical Exam 2 Vital Signs: Vital Signs: Last Vital Signs Temp 98.4 F 02/12/24 07:33 Pulse 80 02/12/24 07:33 Resp 20 02/12/24 07:33 BP 138/80 02/12/24 07:33 Pulse Ox 96 02/12/24 07:33 O2 Del Method Room Air 02/12/24 07:33 BMI result Body Mass Index 19.3 GENERAL APPEARANCE: In no distress. NECK: no carotid bruit, no jugular venous distention. SKIN: no suspicious lesions, warm and dry. HEART: no murmurs, irregular rate and rhythm. LUNGS: Clear to auscultation. ABDOMEN: soft, nontender. EXTREMITIES: Bilateral above-knee amputation. PERIPHERAL PULSES: equal. NEUROLOGIC: No gross deficits, AAO X 3 Objective Data Active Medications Acetaminophen (Acetaminophen 325 Mg Tablet) 650 mg PO Q6H PRN PRN Reason: Pain, Mild (Pain Scale 1-3) Last Admin: 02/11/24 20:11 Dose: 650 mg Documented By: DIDI Albuterol/Ipratropium (Albuterol/Iprat 2.5/0.5mg 3 Ml Ampul.Neb) 3 ml INHALE RQ4H WHILE AWAKE PRN PRN Reason: shortness of breath/wheezing Apixaban (Apixaban 5 Mg Tablet) 5 mg PO BID [facility] Last Admin: 02/12/24 08:26 Dose: 5 mg Documented By: IAN Atorvastatin Calcium (Atorvastatin Calcium 40 Mg Tablet) 40 mg PO BEDTIME [facility] Last Admin: 02/11/24 20:11 Dose: 40 mg Documented By: DIDI Folic Acid (Folic Acid 1 Mg Tablet) 1 mg PO DAILY [facility] Last Admin: 02/12/24 08:26 Dose: 1 mg Documented By: IAN Gabapentin (Gabapentin 100 Mg Capsule) 100 mg PO TID [facility] Last Admin: 02/12/24 08:26 Dose: 100 mg Documented By: IAN Hydrocortisone (Hydrocortisone 1 % Cream 28.35 Gm Tube) 1 appl TOPICAL DAILY PRN; Protocol PRN Reason: Dry Skin Last Admin: 02/11/24 20:12 Dose: 1 appl Documented By: DIDI Thiamine HCl 100 mg/ Sodium (Chloride) 101 mls @ 202 mls/hr IV DAILY [facility] Last Infusion: 02/12/24 09:15 Dose: Infused Documented By: IAN Magnesium Hydroxide (Milk Of Magnesia 30 Ml Oral.Susp) 30 ml PO DAILY PRN PRN Reason: Constipation Magnesium Oxide (Magnesium Oxide 400 Mg Tablet) 800 mg PO BIDPC [facility] Last Admin: 02/12/24 08:26 Dose: 800 mg Documented By: IAN Pharmacy Consult (Consult Rx Etoh Phenob Im/Po) 1 each MISCELLANE ONCE PRN; Protocol PRN Reason: Consult order Sodium Chloride (0.9 % Sodium Chloride Flush 3 Ml Syringe) 3 ml IVFLUSH QSHIFT [facility] Last Admin: 02/12/24 08:30 Dose: 3 ml Documented By: IAN Labs 02/12/24 05:51 02/12/24 05:51 Labs: Laboratory Results - last 24 hr 02/11/24 02/12/24 18:14 05:51 MCV 96.0 MCH 31.9 MCHC 33.2 RDW 17.7 H Plt Count 102 L MPV 10.4 Absolute Nucleated RBC 0.000 Nucleated RBC % (auto) 0.0 Anion Gap 11 L Estim Creat Clear Calc 79.5 Estimated GFR > 60 Fasting Glucose 83 Calcium 7.5 L Magnesium 1.4 L* Ferritin 848 H Vitamin B12 > 2000 H Folate 12.4 Microbiology Microbiology Results: Microbiology 02/06/24 16:21 Blood Culture - Final Blood - Venous No growth after 5 days. 02/06/24 15:47 Blood Culture - Final Blood - Venous No growth after 5 days. Assessment and Plan (1) Alcoholic hepatitis: Status: Acute Plan 63M PMH persistent atrial fibrillation on Eliquis, chronic systolic CHF, peripheral artery disease, COPD, hypertension, hyperlipidemia, alcohol dependence, bilateral above-knee amputation presented with weakness and found to have severe electrolyte abnormalities. Alcohol dependence complicated by acute severe hypokalemia Replaced, monitor Acute hypomagnesemia Replace, monitor Acute kidney injury Resolved qt prolongation avoid qt prolonging drugs, improved with potassium and mag supplement, monitor on tele Acute alcoholic hepatitis Continue high-protein diet, monitor, no steroids for now GI appreciated etoh dependence with withdrawal rsolved Gallbladder distention Low suspicion for cholecystitis, likely due to hepatitis Acute on chronic normocytic anemia Likely inflammatory vs zieve syndrome, transfused 1 unit PRBC, on PPI Monitor CBC - stable COPD Duo nebs as needed Persistent atrial fibrillation with svr and pauses Eliquis holding metoprolol, amiodarone resolved Chronic systolic CHF Holding Lasix for severe hypokalemia, monitor DVT prophylaxis with Eliquis Full code reason for continued hospitalization: low mag Quality Stroke Does the patient have a stroke diagnosis?: No VTE Prior VTE?: No VTE Risk Level:: Medical - moderate - high VTE Device Contraindication: Treatment Not Indicated VTE Drug Contraindication: N/A - Med Ordered
[2024-02-12 11:19] VITALS: BP 130/71; PULSE 71; RESP 20; TEMP 36.7; O2SAT 96
--- NOTE | 2024-02-12 14:28 | MHC.CLN ---
F/U PT WITH INCREASED NUTRITION RISK R/T PRESSURE INJURY DIET RX: REGULAR-APPROPRIATE ENSURE TID TO PROMOTE WOUND HEALING SUPPLEMENT PROVIDES 1050KCALS, 60G PROTEIN MONITOR PO INTAKE AND ENCOURAGE SUPPLEMENTS
--- NOTE | 2024-02-12 14:29 | MHC.CLN ---
F/U PT WITH INCREASED NUTRITION RISK R/T PRESSURE INJURY. DIET RX: REGULAR-APPROPRIATE. ENSURE TID TO PROMOTE WOUND HEALING. SUPPLEMENT PROVIDES 1050KCALS, 60G PROTEIN. INTAKE AT MEALS 50-100%. MONITOR PO INTAKE AND ENCOURAGE SUPPLEMENTS.
[2024-02-12 15:36] VITALS: BP 135/83; PULSE 72; RESP 18; TEMP 36.6; O2SAT 98
[2024-02-12 20:00] VITALS: BP 133/74; PULSE 73; RESP 16; TEMP 36; O2SAT 94
[2024-02-12] MEDS: Atorvastatin Calcium 40 MG TABLET PO (21:45)
[2024-02-13] VITALS (7 sets, daily range): BP systolic 143–157; BP diastolic 72–94; PULSE 71–77; RESP 16–19; TEMP 36.3–37.2; O2SAT 94–97
[2024-02-13 07:30] LABS: Hematocrit 26.5 % (42.0-52.0); Hemoglobin 8.8 g/dl (14.0-18.0); Mean Corpuscular HGB Conc 33.2 g/dl (31.0-36.0); Mean Corpuscular Volume 96.4 fL (80.0-98.0); Mean Platelet Volume 10.1 fL (9.4-12.4); Platelet Count 136 X10*3/uL (160-400); Red Blood Count 2.75 X10*6/uL (4.60-5.80); Red Cell Distribution Width 17.6 % (11.0-16.0); White Blood Count 4.7 X10*3/uL (4.8-10.8)
[2024-02-13 07:44] LABS: Anion Gap 12 (12-20); Blood Urea Nitrogen 12 mg/dL (9-16); Calcium 7.6 mg/dL (8.4-10.2); Carbon Dioxide 25 mmol/L (22-29); Chloride 101 mmol/L (96-108); Creatinine Clr Calc Pharmacy 79.5; Estimated Glomerular Filt Rate > 60; Glucose Fasting 87 mg/dL (60-99); Magnesium 1.6 mg/dL (1.6-2.6); Potassium 3.6 mmol/L (3.3-5.1); Sodium 134 mmol/L (135-145)
[2024-02-13] MEDS: Magnesium Oxide 400 MG TABLET 800 MG PO ×2 (08:46→17:03)
[2024-02-13] MEDS: Apixaban 5 MG TABLET PO ×2 (08:46→20:31)
[2024-02-13] MEDS: 0.9 % Sodium Chloride Flush 3 ML SYRINGE IVFLUSH ×3 (08:47→20:34)
[2024-02-13] MEDS: Gabapentin 100 MG CAPSULE PO ×3 (08:47→20:31)
[2024-02-13] MEDS: Folic Acid 1 MG TABLET PO (08:47)
[2024-02-13] MEDS: Thiamine HCL 100 MG in 0.9 % Sodium Chloride 100 ML 202 MG IV (08:51)
[2024-02-13] MEDS: Acetaminophen 325 MG TABLET 650 MG PO (09:06)
--- NOTE | 2024-02-13 10:22 | P.PNIM_ITS ---
Subjective Subjective Date of Service: 02/13/24 Interval History: general weakness Physical Exam 2 Vital Signs: Vital Signs: Last Vital Signs Temp 98.9 F 02/13/24 07:26 Pulse 75 02/13/24 08:59 Resp 18 02/13/24 07:26 BP 148/94 H 02/13/24 08:59 Pulse Ox 97 02/13/24 08:59 O2 Del Method Room Air 02/13/24 07:26 BMI result Body Mass Index 19.3 GENERAL APPEARANCE: In no distress. NECK: no carotid bruit, no jugular venous distention. SKIN: no suspicious lesions, warm and dry. HEART: no murmurs, irregular rate and rhythm. LUNGS: Clear to auscultation. ABDOMEN: soft, nontender. EXTREMITIES: Bilateral above-knee amputation. PERIPHERAL PULSES: equal. NEUROLOGIC: No gross deficits, AAO X 3 Objective Data Active Medications Acetaminophen (Acetaminophen 325 Mg Tablet) 650 mg PO Q6H PRN PRN Reason: Pain, Mild (Pain Scale 1-3) Last Admin: 02/13/24 09:06 Dose: 650 mg Documented By: DIONISIO Albuterol/Ipratropium (Albuterol/Iprat 2.5/0.5mg 3 Ml Ampul.Neb) 3 ml INHALE RQ4H WHILE AWAKE PRN PRN Reason: shortness of breath/wheezing Apixaban (Apixaban 5 Mg Tablet) 5 mg PO BID [facility] Last Admin: 02/13/24 08:46 Dose: 5 mg Documented By: DIONISIO Atorvastatin Calcium (Atorvastatin Calcium 40 Mg Tablet) 40 mg PO BEDTIME [facility] Last Admin: 02/12/24 21:45 Dose: 40 mg Documented By: KARYN Folic Acid (Folic Acid 1 Mg Tablet) 1 mg PO DAILY [facility] Last Admin: 02/13/24 08:47 Dose: 1 mg Documented By: DIONISIO Gabapentin (Gabapentin 100 Mg Capsule) 100 mg PO TID [facility] Last Admin: 02/13/24 08:47 Dose: 100 mg Documented By: DIONISIO Hydrocortisone (Hydrocortisone 1 % Cream 28.35 Gm Tube) 1 appl TOPICAL DAILY PRN; Protocol PRN Reason: Dry Skin Last Admin: 02/11/24 20:12 Dose: 1 appl Documented By: DIDI Thiamine HCl 100 mg/ Sodium (Chloride) 101 mls @ 202 mls/hr IV DAILY [facility] Last Infusion: 02/13/24 09:48 Dose: Infused Documented By: DIONISIO Magnesium Hydroxide (Milk Of Magnesia 30 Ml Oral.Susp) 30 ml PO DAILY PRN PRN Reason: Constipation Magnesium Oxide (Magnesium Oxide 400 Mg Tablet) 800 mg PO BIDPC [facility] Last Admin: 02/13/24 08:46 Dose: 800 mg Documented By: DIONISIO Pharmacy Consult (Consult Rx Etoh Phenob Im/Po) 1 each MISCELLANE ONCE PRN; Protocol PRN Reason: Consult order Sodium Chloride (0.9 % Sodium Chloride Flush 3 Ml Syringe) 3 ml IVFLUSH QSHIFT [facility] Last Admin: 02/13/24 08:47 Dose: 3 ml Documented By: DIONISIO Labs 02/13/24 06:27 02/13/24 06:27 Labs: Laboratory Results - last 24 hr 02/13/24 06:27 MCV 96.4 MCH 32.0 MCHC 33.2 RDW 17.6 H Plt Count 136 L D MPV 10.1 Absolute Nucleated RBC 0.000 Nucleated RBC % (auto) 0.0 Anion Gap 12 Estim Creat Clear Calc 79.5 Estimated GFR > 60 Fasting Glucose 87 Calcium 7.6 L Magnesium 1.6 Assessment and Plan (1) Alcoholic hepatitis: Status: Acute Plan 63M PMH persistent atrial fibrillation on Eliquis, chronic systolic CHF, peripheral artery disease, COPD, hypertension, hyperlipidemia, alcohol dependence, bilateral above-knee amputation presented with weakness and found to have severe electrolyte abnormalities. Alcohol dependence complicated by acute severe hypokalemia Replaced Acute hypomagnesemia Replaced Acute kidney injury Resolved qt prolongation avoid qt prolonging drugs, improved with potassium and mag supplement, monitor on tele Acute alcoholic hepatitis Continue high-protein diet, monitor, no steroids for now GI appreciated etoh dependence with withdrawal resolved Gallbladder distention Low suspicion for cholecystitis, likely due to hepatitis Acute on chronic normocytic anemia Likely inflammatory vs zieve syndrome, transfused 1 unit PRBC, on PPI Monitor CBC - stable COPD Duo nebs as needed Persistent atrial fibrillation with svr and pauses Eliquis holding metoprolol, amiodarone resolved Chronic systolic CHF Holding Lasix for severe hypokalemia, monitor DVT prophylaxis with Eliquis Full code reason for continued hospitalization: awaiting auth for str Quality Stroke Does the patient have a stroke diagnosis?: No VTE Prior VTE?: No VTE Risk Level:: Medical - moderate - high VTE Device Contraindication: Treatment Not Indicated VTE Drug Contraindication: N/A - Med Ordered
--- NOTE | 2024-02-13 11:20 | MHC.CM.PN ---
PT RECOMMENDING STR CM MET WITH PT WHO SAYS HE IS WILLING TO GO, BUT DOES NOT WANT TO RETURN TO [facility] REFERRALS MADE PT ALSO STATES HE NEEDS IN HOME ASSISTANCE, HE SAYS ONCE HE IS UP HE CAN MANAGE ON HIS OWN, BUT NEEDS ASSISTANCE IN AND OUT OF THE BED REFERRAL MADE TO [facility]
[2024-02-13] MEDS: Atorvastatin Calcium 40 MG TABLET PO (20:31)
[2024-02-14] VITALS: BP 147/91; PULSE 79; RESP 20; TEMP 36.1; O2SAT 95
[2024-02-14 03:48] VITALS: BP 135/80; PULSE 73; RESP 20; TEMP 36.1; O2SAT 97
[2024-02-14 08:00] VITALS: BP 142/84; PULSE 83; RESP 16; TEMP 36.1; O2SAT 96
--- NOTE | 2024-02-14 09:30 | MHC.CM.PN ---
PT is recommending STR. Per MD and this CM's conversation with Patient this morning, Patient wants to go home with VNA. Patient is agreeable to a VNA search. CM will follow.
[2024-02-14] MEDS: Apixaban 5 MG TABLET PO (09:38)
[2024-02-14] MEDS: Thiamine HCL 100 MG in 0.9 % Sodium Chloride 100 ML 202 MG IV (09:38)
[2024-02-14] MEDS: Gabapentin 100 MG CAPSULE PO (09:38)
[2024-02-14] MEDS: Folic Acid 1 MG TABLET PO (09:38)
[2024-02-14] MEDS: Magnesium Oxide 400 MG TABLET 800 MG PO (09:38)
[2024-02-14] MEDS: Hydrocortisone 1 % Cream 28.35 GM TUBE 1 APPL TOPICAL (09:49)
[2024-02-14] MEDS: 0.9 % Sodium Chloride Flush 3 ML SYRINGE IVFLUSH (09:49)
--- NOTE | 2024-02-14 10:43 | MHC.CLN ---
F/U PT WITH INCREASED NUTRITION RISK R/T PRESSURE INJURY PO INTAKE 75% AVERAGE DIET RX: REGULAR-APPROPRIATE ENSURE TID IN PLACE TO PROMOTE WOUND HEALING SUPPLEMENT PROVIDES 1050KCALS, 60G PROTEIN WITH 100% ACCEPTANCE CONITNUE TO MONITOR PO INTAKE AND ENCOURAGE SUPPLEMENTS
--- NOTE | 2024-02-14 11:37 | PM.DS ---
DS: Providers Provider Date of Service: 02/14/24 Date of admission: 02/06/24 20:10 Primary care physician: ALLI Dunn Consults: 02/06/24 20:21 Consult to Gastroenterology Routine Consulting Provider: Brad Nguyen Reason for consultation: etoh hepatitis 02/06/24 20:43 Consult to Cardiology Routine Consulting Provider: [facility] Reason for consultation: elevated trops, severe electrolyte abnormality 02/06/24 20:45 Addiction Medicine Routine Consulting Provider: Addiction [facility] Reason for consultation: etoh dependence 02/09/24 06:55 Consult to Wound Care Routine Reason for consultation: coccyx wound Has provider been notified: Yes DS: Diagnosis Discharge Diagnosis (1) Alcoholic hepatitis: Status: Acute (2) Prolonged QT interval: Status: Acute (3) Acute kidney injury: Status: Acute (4) Elevated LFTs: Status: Acute (5) Acute hypokalemia: Status: Acute (6) Hypomagnesemia: Status: Acute (7) Stage III pressure ulcer of buttock: Status: Acute DS: Summary Hospital Course Hospital Course: Admission note HPI 63-year-old male with a PMH significant for?AFib on Eliquis, HFrEF, peripheral artery disease, COPD not on home oxygen, HTN, HLD, alcohol use disorder, and bilateral AKA who presented to the ED earlier today for evaluation of progressive weakness. The patient reports over the last 1.5 weeks has been generally weak. At baseline, can perform ADL's occassionally with assist from OVEN ATTENDANT but lately has been unable to perform transfers easily. Today reports he slipped on the toilet and one of his stumps was in the toilet and the other was on the edge and he was unable to right himself so his aide called ems. He does report after a period of sobriety, relapsed about one month ago with alcohol and has been consuming at least 4-5 nips of alcohol nightly and sometimes drinks nips at lunch as well. Also smokes 0.5 ppd. no drugs. No fevers, chills, recent illness, abdominal pain, nausea, vomiting, diarrhea, melena, hematochezia, shortness of breath, cough, lightheadedness, syncope, chest pain. On arrival, vital signs stable. No leukocytosis. Has a chronic normocytic anemia with H/H 8.3/23.2%. Denies any bleeding. Platelet count 115. PT 16.7, INR 1.4. On arrival, creatinine 2.59, baseline around 0.78. BUN 61. Sodium 131, potassium 1.9, chloride 78. Anion gap 27. Calcium 7.7. Magnesium 1.5. Total bilirubin 5.2, direct bilirubin of 3.9. AST 44, ALT 55, alkaline phosphatase 152. Initial troponin 132.7, repeat 102.4. Potassium was repleted with 40 mEq IV potassium chloride, 60 mEq oral potassium chloride. He was also given 2 g IV magnesium and IV Zosyn as well as 2 L IV NS. Following repletion, creatinine improved to 1.97, BUN 52. Sodium remains low at 130, potassium improved to 2.2, chloride 83, anion gap improved to 22. Calcium 7.2. Hepatic function remains elevated. Albumin 2.8. Chest x-ray negative for acute cardiopulmonary abnormality. Ultrasound of the abdomen shows distended gallbladder with sludge, wall thickening and tenderness suspicious for acute cholecystitis. There is also hepatic steatosis with hepatopetal flow in the main portal vein. Discussed with general surgery who has evaluated patient, low suspicion for acute cholecystitis. Abnormal gallbladder findings are more likely related to liver disease. Pt will be admitted for further management of severe electrolyte abnormality and alcohic hepatitis. Hospital course # Alcohol dependence complicated by acute severe hypokalemia, hypomagnesemia andAcute kidney injury with alcohol withdrawal which were replaced with electrolytes and IV fluids and improved back to normal baseline. He went through withdrawals which were controlled with Phenobarbital protocol. advised to quit drinking. # QT prolongation avoid qt prolonging drugs, improved with potassium and mag supplement, cardiology recommended to DC Amiodarone. # Acute alcoholic hepatitis Improved after placed on high-protein diet, GI evaluated the patient and recommended no steroids for now # Gallbladder distention Low suspicion for cholecystitis, as seem with sludge in US. likely due to hepatitis. resolved with no need of surgical intervention as he was evaluated by general surgery. # Acute on chronic normocytic anemia Likely inflammatory vs zieve syndrome, transfused 1 unit PRBC and placed on oral PPI with no evidence of blood loss or bleeding. # Persistent atrial fibrillation with pauses. Not on Telemetry and evaluated by shampoo assistant who recommended to Hold Amiodarone along with Metoprolol with good response as his heart rate remained in 80s. He was kept on Eliquis. The concern that Amiodarone will wear off and he might be back to RvR specially if he continues to drink. Will start low dose Metoprolol 25 mg bid for now and follow with cardiology as outpatient. Discharge plan Discontinue MEtoprolol 100 mg and Amiodarone Start small dose MEtoprolol 25 mg twice daily Avoid alcohol Follow up with Cardiology as outpatient Physical therapy at home Time Attestation Discharge Coordination Time (in mins): 38 Quality: Safe Use of Opioids Does Pt have an Active Cancer Diagnosis on the Problem List?: No Quality: Stroke Does the patient have a stroke diagnosis?: No Physical Exam Vital Signs: Vital Signs: Last Vital Signs Temp 97.0 F 02/14/24 08:00 Pulse 83 02/14/24 08:00 Resp 16 02/14/24 08:00 BP 142/84 H 02/14/24 08:00 Pulse Ox 96 02/14/24 08:00 O2 Del Method Room Air 02/14/24 08:00 BMI result Body Mass Index 19.3 Const: Other: Constitutional : Awake, interactive, not in distress Neck : Normal inspection, Supple Cardiovascular : irregular irregular, no JVP, no lower extremity edema Respiratory : good bilateral air entry, no crackles, wheezes or rhonchi Gastrointestinal: soft, lax, Normal bowel sounds, Non tender Skin : Warm, Dry, Stage 3 buttock wound covered with dressing extremities: above knee amputation bilaterally Neurological : Alert & oriented x3, No focal deficit DS: Data Data Completed and Pending Completed studies during hospitalization [Text1]: Procedures Detachment at Left Upper Leg, Mid, Open Approach (03/13/23) Detachment at Right Upper Leg, Mid, Open Approach (02/09/23) Detoxification Services for Substance Abuse Treatment (10/13/23) Insertion of Monitoring Device into Right Pulmonary Artery, Percutaneous Approach (07/24/21) Transfusion of Nonautologous Red Blood Cells into Peripheral Vein, Percutaneous Approach (02/09/23) Imaging Chest x-ray: Radiologist's impression: ITS Impressions Chest X-Ray 02/06/24 12:49 IMPRESSION: No acute cardiopulmonary disease Abdomen Ultrasound 02/06/24 14:17 IMPRESSION: Distended gallbladder with sludge, wall thickening and tenderness suspicious for acute cholecystitis. Hepatic steatosis. Hepatopedal flow in the main portal vein. Chest X-Ray 02/09/24 11:40 IMPRESSION: Low lung volumes. Increasing atelectasis. Additional Comments Additional comments: Wound care recommendations : 1. Turn and Reposition every 2 hours and as needed for patient comfort.? Use pillows or wedges to support off loading positions. 2. Off Load all bony prominences with use of pillows and heel boots if needed.? Apply Preventative foams where needed. ? 3. Monitor for incontinence and moisture control, use barrier creams when needed for prevention and treatment. 4. Provide adequate and supplemental nutrition.? 5. Order or Continue low air loss mattress. 6. When applicable maintain blood glucose levels per Providers order. 7. Sacrum - Off Load Pressure - Cleanse with NS, Pat dry.? Apply barrier to periwound, lightly pack with Durafiber AG, be sure to leave a wick to easy removal.? Cover with Foam dressing.? Change every 3 days. Peel back and asses daily. Discharge Plan Discharge Anticipated Discharge Date/Time: 02/14/24 11:14 Patient Disposition: Home Health Service Discharge Diagnosis: Acute kidney injury Electrolytes imbalance Hepatitis Referrals: [facility] [Outside] - 1 Week Antonino Ramsey [facility]- [Primary Care Provider] - 1 Week Discharge Medications: New metoprolol tartrate 25 mg tablet 25 mg PO BID Qty: 180 0RF Continued (DME) power scooter See Rx Instructions .Route .MEDSUPPLY Qty: 1 0RF Rx Instructions: daily use thiamine mononitrate (vit B1) 100 mg tablet 100 mg PO DAILY Qty: 30 3RF folic acid 1 mg tablet 1 mg PO DAILY 90 Days Qty: 90 1RF gabapentin 100 mg capsule 100 mg PO TID 30 Days Qty: 90 1RF magnesium oxide 400 mg (241.3 mg magnesium) tablet 400 mg PO BIDPC 30 Days Qty: 60 0RF Eliquis 5 mg tablet 5 mg PO BID Qty: 180 3RF furosemide 20 mg tablet 20 mg PO DAILY Qty: 90 3RF omeprazole 40 mg capsule,delayed release(DR/EC) 40 mg PO DAILY@0630 90 Days Qty: 90 1RF atorvastatin 40 mg tablet 40 mg PO BEDTIME 90 Days Qty: 90 2RF acetaminophen [Athenol] 325 mg tablet 650 mg PO QID PRN (Reason: pain (scale score 1-3)) Qty: 10 0RF Discontinued metoprolol tartrate 100 mg tablet 100 mg PO BID 90 Days Qty: 180 3RF Protocol: Hold for SBP/HR < HOLD for SBP < : 90 HOLD for HR < : 60 Rx Instructions: future refills from Cardiology amiodarone 200 mg tablet 200 mg PO DAILY Qty: 90 0RF Discharge Orders: Discharge Order (Routine); Ordered 02/14/24 Ordered By: Teresa Barnard Diet: Low salt diet Activity on Discharge: As tolerated Stand Alone Forms: Patient Portal Discharge page Print Language: Chinese Care Plan Goals: Read below Health Concerns: Read below Plan of Treatment: Read below Assessment: Discontinue MEtoprolol 100 mg and Amiodarone Start small dose MEtoprolol 25 mg twice daily Avoid alcohol Follow up with Cardiology as outpatient Physical therapy at home
--- NOTE | 2024-02-14 11:51 | P.F2F_ITS ---
Service Date Service Date: 02/14/24 Encounter Date of encounter: 02/14/24 Reasons for Services Signs and symptoms assessed: PHysical deconditioning Reason for intermediate: wound care Reason for physical therapy: home safety and mobility and therapeutic exercises Homebound: Leaving the home is medically contraindicated at this time without the asist of a device and/or another person due th the listed conditions above and below. Reason homebound: unsteady gait / fall risk Certification: Based on the above findings, I certify that this patient is confined to the home and needs intermittent intermediate care, physical therapy and/or speech therapy, or continues to need occupational therapy. The patient is under my care, and I have initiated the establishment of the plan of care. The patient will be followed by a physician who will periodically review the plan of care. Time Spent With Patient Time: Total time managing care of this patient today ____ minutes.
[2024-02-14 12:00] VITALS: BP 142/84; PULSE 83; RESP 16; TEMP 36.1; O2SAT 96
--- NOTE | 2024-02-14 12:02 | MHC.CM.PN ---
Patient has been medically cleared for dc to home today, with services; [facility] has accepted Patient.
--- NOTE | 2024-02-14 12:17 | MHC.CM.PN ---
Patient will transport home today at 1PM, via [facility].
== END 2024-02-14 14:00 | disposition home health service (06) | DRG 280 ==
LOC: HO.ED 15:57 → HO.EDOVER 20:46 → HO.IMC 02-08 11:02 → HO.EDOVER 02-08 12:18 → HO.IMC 02-08 19:53
PROVIDERS: Internal Medicine; Internal Medicine Gastroenterology; Physician Assistant Medical; Student in an Organized Health Care Education/Training Program; Admitting Provider Physician Assistant; Emergency Provider Emergency Medicine Emergency Medical Services; PCP Nurse Practitioner Family; Visit Provider Student in an Organized Health Care Education/Training Program
DX: K70.10 Alcoholic hepatitis without ascites (principal); I50.23 Acute on chronic systolic (congestive) heart failure; L89.153 Pressure ulcer of sacral region, stage 3; N17.9 Acute kidney failure, unspecified; I95.9 Hypotension, unspecified; I11.0 Hypertensive heart disease with heart failure; I49.5 Sick sinus syndrome; E87.1 Hypo-osmolality and hyponatremia; Z89.611 Acquired absence of right leg above knee; I48.19 Other persistent atrial fibrillation; Z89.612 Acquired absence of left leg above knee; D64.9 Anemia, unspecified; F10.239 Alcohol dependence with withdrawal, unspecified; R94.31 Abnormal electrocardiogram [ECG] [EKG]; J44.9 Chronic obstructive pulmonary disease, unspecified; I73.9 Peripheral vascular disease, unspecified; F17.210 Nicotine dependence, cigarettes, uncomplicated; I25.10 Atherosclerotic heart disease of native coronary artery without angina pectoris; E83.42 Hypomagnesemia; E87.6 Hypokalemia; Z20.822 Contact with and (suspected) exposure to COVID-19; Z71.6 Tobacco abuse counseling; Z79.01 Long term (current) use of anticoagulants; Z79.899 Other long term (current) drug therapy
CPT/HCPCS: 0241U; 36415; 71045; 71046; 76705; 80048; 80053; 80076; 80307; 81001; 82248; 82607; 82728; 82746; 82947; 83605; 83615; 83690; 83735; 84484; 85025; 85027; 85610; 85730; 86850; 86900; 86901; 86923; 87040; 92950; 93005; 93306; 97162; 99285; C9113; J2543; J2560; J3411; J3475; J3480; J7120; P9016; P9047; Q9957

== ENCOUNTER 2024-02-06 20:10 | Outpatient (BNV) | payer OTHER, MEDICAID, SELFPAY | END 2024-02-08 11:05 | PROVIDERS: Admitting Provider Physician Assistant; Emergency Provider Emergency Medicine Emergency Medical Services; PCP Nurse Practitioner Family; Visit Provider Internal Medicine Cardiovascular Disease | DX: I48.91 Unspecified atrial fibrillation (principal) | CPT/HCPCS: 93010 ==

== ENCOUNTER 2024-02-06 20:10 | Outpatient (BNV) | payer OTHER, MEDICAID, SELFPAY | END 2024-02-07 07:00 | PROVIDERS: Admitting Provider Physician Assistant; Emergency Provider Emergency Medicine Emergency Medical Services; PCP Nurse Practitioner Family; Visit Provider Internal Medicine Cardiovascular Disease | DX: I49.2 Junctional premature depolarization (principal) | CPT/HCPCS: 93010; 93306 ==

== ENCOUNTER 2024-02-06 20:10 | Outpatient (BNV) | payer OTHER, MEDICAID, SELFPAY | END 2024-02-09 10:14 | PROVIDERS: Admitting Provider Physician Assistant; Emergency Provider Emergency Medicine Emergency Medical Services; PCP Nurse Practitioner Family; Visit Provider Internal Medicine Cardiovascular Disease | DX: I44.0 Atrioventricular block, first degree (principal); I48.91 Unspecified atrial fibrillation | CPT/HCPCS: 93010 ==

== ENCOUNTER → 2024-02-06 20:10 | Outpatient (BNV) | payer OTHER, SELFPAY | PROVIDERS: Admitting Provider Physician Assistant; Emergency Provider Emergency Medicine Emergency Medical Services; PCP Nurse Practitioner Family; Visit Provider Physician Assistant | DX: K70.10 Alcoholic hepatitis without ascites (principal); R94.31 Abnormal electrocardiogram [ECG] [EKG]; N17.9 Acute kidney failure, unspecified; R79.89 Other specified abnormal findings of blood chemistry; E87.6 Hypokalemia; E83.42 Hypomagnesemia; L89.303 Pressure ulcer of unspecified buttock, stage 3 | CPT/HCPCS: 99223; 99232; 99233; 99239; G0180 ==

== ENCOUNTER → 2024-02-06 20:10 | Outpatient (BNV) | payer OTHER, SELFPAY | PROVIDERS: Admitting Provider Physician Assistant; Emergency Provider Emergency Medicine Emergency Medical Services; PCP Nurse Practitioner Family; Visit Provider Surgery | DX: R79.89 Other specified abnormal findings of blood chemistry (principal) | CPT/HCPCS: 99222 ==

== ENCOUNTER → 2024-02-06 20:10 | Outpatient (BNV) | payer OTHER, MEDICAID, SELFPAY | PROVIDERS: Admitting Provider Physician Assistant; Emergency Provider Emergency Medicine Emergency Medical Services; PCP Nurse Practitioner Family; Visit Provider Internal Medicine Cardiovascular Disease | DX: R00.1 Bradycardia, unspecified (principal); R94.31 Abnormal electrocardiogram [ECG] [EKG] | CPT/HCPCS: 93010; 99223; 99232; 99233 ==

== ENCOUNTER → 2024-02-06 20:10 | Outpatient (BNV) | payer OTHER, SELFPAY | PROVIDERS: Admitting Provider Physician Assistant; Emergency Provider Emergency Medicine Emergency Medical Services; PCP Nurse Practitioner Family; Visit Provider Internal Medicine Gastroenterology | DX: K70.10 Alcoholic hepatitis without ascites (principal) | CPT/HCPCS: 99223; 99232; 99233 ==

== ENCOUNTER 2024-02-15 11:42 | Emergency (ER) | payer OTHER, MEDICAID, SELFPAY ==
[2024-02-15] VITALS (7 sets, daily range): BP systolic 137–186; BP diastolic 72–104; PULSE 62–78; RESP 12–19; TEMP 36.6–36.9; O2SAT 92–99; BMI 28.3
--- NOTE | ~2024-02-15 | XR_ITS ---
EXAMINATION: XR CHEST CLINICAL INFORMATION: Cough and wheezing COMPARISON: 02/09/2024 TECHNIQUE: Frontal view of the chest was obtained. FINDINGS: There is linear atelectasis in the right upper lobe. The rest of lungs are clear. Cardiomediastinal silhouette is normal. XR/XR chest 1V IMPRESSION: Right upper lobe linear atelectasis
--- NOTE | 2024-02-15 12:06 | ECG_ITS ---
Test Reason : SOB Blood Pressure : / mmHG Vent. Rate : 068 BPM Atrial Rate : 068 BPM P-R Int : 208 ms QRS Dur : 176 ms QT Int : 550 ms P-R-T Axes : 042 -68 069 degrees QTc Int : 584 ms Normal sinus rhythm Right bundle branch block Left anterior fascicular block Bifascicular block Inferior infarct (cited on or before 08-FEB-2024) T wave abnormality, consider lateral ischemia Prolonged QT Abnormal ECG When compared with ECG of 09-FEB-2024 22:39, Significant changes have occurred Referred By: Nieves Zheng Electronically Signed By:IHSAN BERGMAN
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
[2024-02-15 12:34] LABS: MANUAL DIFF FLAG NO
[2024-02-15 12:37] LABS: Basophils Percent Auto 0.9 % (0-2); Eosinophils Percent Auto 0.5 % (0-4); Hematocrit 27.8 % (42.0-52.0); Hemoglobin 9.2 g/dl (14.0-18.0); Imm Gran Abs Auto 0.02 X10*3/uL (0.00-0.03); Imm Gran Pct Auto 0.5 % (0.0-0.4); Lymphocytes Absolute Auto 0.6 X10*3/uL (1.2-4.9); Mean Corpuscular HGB Conc 33.1 g/dl (31.0-36.0); Mean Corpuscular Hemoglobin 32.2 pg (27.0-33.0); Mean Corpuscular Volume 97.2 fL (80.0-98.0); Mean Platelet Volume 9.7 fL (9.4-12.4); Monocytes Absolute Auto 0.3 X10*3/uL (0.1-1.2); Monocytes Percent Auto 6.4 % (2-11); Neutrophils Absolute Auto 3.4 x10*3/uL (2.0-8.3); Neutrophils Percent Auto 77.7 % (45-73); Platelet Count 182 X10*3/uL (160-400); Red Blood Count 2.86 X10*6/uL (4.60-5.80); Red Cell Distribution Width 16.7 % (11.0-16.0); White Blood Count 4.4 X10*3/uL (4.8-10.8)
[2024-02-15 12:54] LABS: Alanine Aminotransferase 23 U/L (0-40); Albumin Level 3.2 g/dL (3.5-5.0); Alkaline Phosphatase 127 U/L (39-117); Anion Gap 13 (12-20); Aspartate Amino Transferase 99 U/L (5-37); Bilirubin Total 1.5 mg/dL (0.0-1.0); Blood Urea Nitrogen 10 mg/dL (9-16); Calcium 8.3 mg/dL (8.4-10.2); Carbon Dioxide 24 mmol/L (22-29); Chloride 103 mmol/L (96-108); Creatinine Clr Calc Pharmacy 79.2; Estimated Glomerular Filt Rate > 60; Ethanol < 10 mg/dL; Glucose Random 81 mg/dL (60-115); Magnesium 1.6 mg/dL (1.6-2.6); Potassium 3.3 mmol/L (3.3-5.1); Sodium 137 mmol/L (135-145); Total Protein 5.8 g/dL (6.5-8.0)
[2024-02-15 12:56] LABS: B Type Natriuretic Peptide 440 pg/mL (<100)
[2024-02-15] MEDS: Potassium Chloride ER 20 MEQ TAB.ER.PRT 40 MEQ PO (15:40)
[2024-02-15] MEDS: Magnesium Sulfate/H2O 2 GM/50 ML PIGGYBACK IV (15:40)
[2024-02-15 16:50] LABS: Appearance Urine Cloudy; Color Urine Yellow; Glucose Urine UA Negative (Negative); Leukocyte Esterase Urine Moderate (2+) (Negative); Nitrite Urine Negative (Negative); PH 7.5 (5.0-9.0); UMIC TRIGGER UACC YES; Urine Blood Trace (Negative); Urine Ketones Negative (Negative); Urine Protein Negative (Neg-Trace)
[2024-02-15 16:56] LABS: Amphetamine Screen Urine Not Detected (Not Detect); Barbiturates, Urine POSITIVE (Not Detect); Benzodiazepines Screen Urine Not Detected (Not Detect); Buprenorphine Scr Not Detected (Not Detect); Cannabinoid Screen Urine Not Detected (Not Detect); Cocaine Screen Urine Not Detected (Not Detect); Fentanyl, urine Not Detected (Not Detect); Methadone Screen, Urine Not Detected (Not Detect); Opiate Screen Urine Not Detected (Not Detect); Oxycodone Screen Urine Not Detected (Not Detect); Phencyclidine Screen Urine Not Detected (Not Detect)
[2024-02-15 16:58] LABS: COVID-19 Test Positive (Negative); IDNOW Serial# 08D9AD1C
--- NOTE | 2024-02-15 17:41 | MHC.CM.ED ---
Addendum entered by Mariza Blas 02/15/24 17:59: Primary nurse reported to CM that the patient has tested positive for COVID today. May be deterrent to timely STR placement. Original Note: CM met with patient at the request of Nieves OTERO. Pt as discharged from [facility] yesterday; he refused recommended STR and was agreeable to Home services. [facility] accepted care. CM met with patient. He is lethargic, with jaundiced color. Appears weakened. Pt has bilateral AKA. Is wheelchair bound. Is normally able to self transfer and complete ADL's. Pt was too weak today to transfer into his W/C. Pt is agreeable to STR now. Refuses referral to ELSN. Pt was seen by PT and they are recommending STR. Referrals placed by previous CM. 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 Pt denies having a MOLDING AND TRIM INSTALLER. PCP is Antonino OTERO. HCP is on file. CM will follow for discharge planning.
[2024-02-15 17:44] LABS: Bacteria Urine 4+ (None Seen); Hyaline Casts Urine 0-2 /LPF (0-2); RBC Urine 0-2 /HPF (0-2); UACC Culture Trigger YES; WBC Urine >50 /HPF (0-5)
[2024-02-16] VITALS (10 sets, daily range): BP systolic 136–159; BP diastolic 73–88; PULSE 60–100; RESP 14–18; TEMP 36.4–37.1; O2SAT 93–100
--- NOTE | 2024-02-16 02:38 | PC.NURSE ---
late entry- assumed care at 0100 of pt, pt a&ox4, respirations even and unlabored. no acute distress noted. vss.
--- NOTE | 2024-02-16 05:20 | MHC.EDTECH ---
Assisted Pt with BM on bedpan
--- NOTE | 2024-02-16 09:28 | PC.NURSE ---
Awaiting medication verification to give patient AM medications.
--- NOTE | 2024-02-16 09:37 | MHC.EDTECH ---
Patient's wet bedding changed. Bedding now clean and dry. Patient given a warm blanket and positioned for comfort. Patient states he is comfortable. Call farfan placed within reach. Patient resting, respirations even and unlabored.
[2024-02-16] MEDS: Folic Acid 1 MG TABLET PO (10:11)
[2024-02-16] MEDS: Apixaban 5 MG TABLET PO ×2 (10:11→20:33)
[2024-02-16] MEDS: Furosemide 20 MG TABLET PO (10:12)
[2024-02-16] MEDS: Thiamine HCL 100 MG TABLET PO (10:12)
[2024-02-16] MEDS: Metoprolol Tartrate 25 MG TABLET PO ×2 (10:12→20:33)
[2024-02-16] MEDS: Gabapentin 100 MG CAPSULE PO ×3 (10:13→20:33)
[2024-02-16] MEDS: Magnesium Oxide 400 MG TABLET PO ×2 (10:13→17:21)
--- NOTE | 2024-02-16 11:29 | HO.WOUND ---
Wound Consult: Initial 63yr old?[place] in [place] [facility] [place]15[place] - See progress notes and H&P for detailed history.? Patient had recent admission and discharge and is now pending rehab placement after short period of time at home. Wound consult placed for Sacral wound POA.? Patient agreeable to assessment and photo documentation.? Patient reports the wound is in relation to his sitting in his wheel chair most days. He reports he does use a special cushion but does not see a specialist for this. Patient educated on importance of frequent position changes and moisture management - he reports understanding. 02/09/24 Last Admission [facility] 02/16/24 _ improved from last assessment at prior admission Sacrum Etiology: Stage 3 Pressure Injury ??Present on Admission Measurements: 5cm x 2.5cm x 0.2cm with intact bridges of newly epithelialized tissue noted Wound Bed: red pink tissue Drainage / Odor: Moderate Veliz yellow drainage - no odor Edges: ? irregular Meg wound: MASD (Moisture Associated Skin Damage) ? and maceration - No Induration, Fluctuance or Warmth noted - Noted for scar tissue to bilateral ischium suspect previous full thickness injury to this area putting it at significant risk for future breakdown. Recommend off loading and consider foam application. Pain: reports mild pain Goals of Treatment: ? Durafiber AG to manage moisture and allow for autolytic healing. Bilateral Ischium with scarring Penis Etiology: Device related Mucosal Pressure Injury - ?Present on Admission Measurements: 0.4cm x 1cm x 0.2cm Wound Bed: adherent moist yellow slough Drainage / Odor: None noted Edges: ? irregular Meg wound: Intact - No Induration, Fluctuance or Warmth noted Pain: denies pain Goals of Treatment: ? Triad to protect from moisture and friction and allow for autolytic healing. Do not use Condom Cath. Recommendations: 1. Turn and Reposition every 2 hours and as needed for patient comfort.? Use pillows or wedges to support off loading positions. 2. Off Load all bony prominences with use of pillows and heel boots if needed.? Apply Preventative foams where needed. ? 3. Monitor for incontinence and moisture control, use barrier creams when needed for prevention and treatment. 4. Provide adequate and supplemental nutrition.? 5. Order low air loss mattress. 6. When applicable maintain blood glucose levels per Providers order. 7. Sacrum - Off Load Pressure - Cleanse with NS, Pat dry.? Apply barrier to periwound, lightly pack with Durafiber AG, be sure to leave a wick to easy removal.? Cover with Foam dressing.? Change every 3 days. Peel back and asses daily. 8. Penis base - Cleanse with Ph Balanced wipes. pat dry. Apply thin layer of triad to wound bed. Only pat and dab no scrub and rub when soiling occurs. Reapply thin layer PRN after each episode of incontinence. Do not use Condom / [place] Cath. Re-consult wound care Nurse for wound deterioration or wound changes.
--- NOTE | 2024-02-16 12:22 | MHC.CM.ED ---
Addendum entered by Jyoti Mejia 02/16/24 15:14: Insurance auth has been obtained. [facility] PASRR Level 2 obtained. [facility] BLS booked for 730pm. Patient, Aspen WILSON and Claudia OTERO aware. Addendum entered by Jyoti Mejia 02/16/24 12:45: Patient will need [facility] PASRR Level 2 due to ETOH abuse. Level 1 already submitted. Original Note: Patient remains in ER. Was on oxygen overnight. Patient now on room air. [facility] is able to offer a bed. Patient accepts. DB has been asked to obtain insurance auth. Continue to monitor for d/c needs.
[2024-02-16] MEDS: Nicotine 7 MG PATCH.TD24 TRANSDERMA (13:33)
[2024-02-16] MEDS: cefuroxime axetiL 250 MG TABLET PO (15:54)
--- NOTE | 2024-02-16 17:01 | MHC.EDTECH ---
Patient inc therefore patient changed and repositioned
--- NOTE | 2024-02-16 18:37 | MHC.EDTECH ---
Patient given dinner tray
--- NOTE | 2024-02-16 19:07 | PC.NURSE ---
Assumed care of pt. Pt lying on hospital bed, no acute distress. Waiting for EMS arrival for transport.
[2024-02-16] MEDS: Acetaminophen 325 MG TABLET 650 MG PO (20:33)
[2024-02-16] MEDS: Atorvastatin Calcium 40 MG TABLET PO (20:33)
== END 2024-02-16 20:39 | disposition home or self-care (01) ==
PROVIDERS: Physician Assistant; Emergency Provider Emergency Medicine; PCP Nurse Practitioner Family
DX: R53.81 Other malaise (principal); R94.31 Abnormal electrocardiogram [ECG] [EKG]; I48.91 Unspecified atrial fibrillation; I11.0 Hypertensive heart disease with heart failure; I50.20 Unspecified systolic (congestive) heart failure; J44.9 Chronic obstructive pulmonary disease, unspecified; Z79.01 Long term (current) use of anticoagulants; Z89.612 Acquired absence of left leg above knee; Z89.611 Acquired absence of right leg above knee; Z11.52 Encounter for screening for COVID-19
CPT/HCPCS: 36415; 71045; 80048; 80076; 80307; 81001; 83735; 83880; 85025; 87086; 87088; 87186; 87635; 93005; 97162; 97166; 99285; J3475

== ENCOUNTER → 2024-02-15 12:06 | Outpatient (BNV) | payer OTHER, MEDICAID, SELFPAY | PROVIDERS: Emergency Provider Emergency Medicine; PCP Nurse Practitioner Family; Visit Provider Internal Medicine | DX: R94.31 Abnormal electrocardiogram [ECG] [EKG] (principal) | CPT/HCPCS: 93010 ==

== ENCOUNTER 2024-02-18 04:05 | Inpatient (IN) | payer OTHER, MEDICAID, SELFPAY ==
[2024-02-18] VITALS (15 sets, daily range): BP systolic 97–168; BP diastolic 49–89; PULSE 64–75; RESP 13–20; TEMP 36.2–38.3; O2SAT 87–100; BMI 30.8; BMI 30.9
--- NOTE | 2024-02-18 | ECG_ITS ---
Test Reason : SOB Blood Pressure : / mmHG Vent. Rate : 072 BPM Atrial Rate : 000 BPM P-R Int : 000 ms QRS Dur : 170 ms QT Int : 542 ms P-R-T Axes : 000 268 092 degrees QTc Int : 593 ms Normal sinus rhythm Right bundle branch block Left anterior fascicular block Inferior infarct , age undetermined T wave abnormality, consider lateral ischemia Prolonged QT Abnormal ECG When compared with ECG of 15-FEB-2024 14:53, Lateral T inversion more prominent Referred By: Generic ED Physician Electronically Signed By:IHSAN BERGMAN
--- NOTE | ~2024-02-18 | XR_ITS ---
EXAMINATION: XR CHEST CLINICAL INFORMATION: Shortness of breath COMPARISON: 02/15/2024 TECHNIQUE: Frontal view of the chest was obtained. FINDINGS: Lung volumes are symmetric. Decreased right perihilar opacity compared to prior with suggestion of some residual atelectasis. Left lung appears well-aerated. No evidence of pneumothorax, pleural effusion, or pulmonary edema. The cardiomediastinal silhouette is stable. No acute osseous findings are seen. XR/XR chest 1V IMPRESSION: Decreased right perihilar opacity compared to prior with suggestion of some residual atelectasis.
[2024-02-18 04:35] LABS: Basophils Percent Auto 0.3 % (0-2); Eosinophils Percent Auto 0.3 % (0-4); Hematocrit 28.9 % (42.0-52.0); Hemoglobin 9.6 g/dl (14.0-18.0); Imm Gran Abs Auto 0.01 X10*3/uL (0.00-0.03); Imm Gran Pct Auto 0.3 % (0.0-0.4); Lymphocytes Absolute Auto 0.2 X10*3/uL (1.2-4.9); Lymphocytes Percent Auto 6.3 % (20-40); MANUAL DIFF FLAG SCAN; Mean Corpuscular HGB Conc 33.2 g/dl (31.0-36.0); Mean Corpuscular Hemoglobin 31.8 pg (27.0-33.0); Mean Corpuscular Volume 95.7 fL (80.0-98.0); Mean Platelet Volume 9.3 fL (9.4-12.4); Monocytes Percent Auto 0.6 % (2-11); Neutrophils Absolute Auto 3.1 x10*3/uL (2.0-8.3); Neutrophils Percent Auto 92.2 % (45-73); Platelet Count 185 X10*3/uL (160-400); Red Blood Count 3.02 X10*6/uL (4.60-5.80); Red Cell Distribution Width 16.4 % (11.0-16.0); SCAN SMEAR FLAG 1; White Blood Count 3.3 X10*3/uL (4.8-10.8)
[2024-02-18 04:37] LABS: Venous Blood Gas Refer to POC result
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
[2024-02-18 04:38] LABS: VBG Base Excess 6.4 mmol/L; VBG HCO3 31 mmol/L (22-26); VBG pCO2 47 mmHg; VBG pH 7.43 (7.32-7.43); VBG pO2 30 mmHg
--- NOTE | 2024-02-18 04:44 | PC.NURSE ---
Pt LEONEL from [facility] for reports of shortness of breath. Pt reynolds COPD and was recently diagnosed with covid per EMS. Pt was on 2L NC at facility but does not use at baseline. Sats 95-97%. #20 IV placed top R-AC. Labs drawn and sent. CXR and EKG ordered and completed. Pt sats 93-95% room air. Rectal temp 102.1 MD aware and in to see patient. Will order bronch protocol and steroids.
[2024-02-18 04:53] LABS: SLIDE REVIEW VERIFIED
[2024-02-18] MEDS: methylPREDNISolone Sod Succ 125 MG/2 ML VIAL IVPUSH (04:56)
[2024-02-18 04:59] LABS: Alanine Aminotransferase 18 U/L (0-40); Albumin Level 3.3 g/dL (3.5-5.0); Alkaline Phosphatase 148 U/L (39-117); Anion Gap 12 (12-20); Aspartate Amino Transferase 85 U/L (5-37); Bilirubin Total 1.3 mg/dL (0.0-1.0); Blood Urea Nitrogen 10 mg/dL (9-16); Calcium 8.5 mg/dL (8.4-10.2); Carbon Dioxide 29 mmol/L (22-29); Chloride 99 mmol/L (96-108); Creatinine Clr Calc Pharmacy 62.4; Estimated Glomerular Filt Rate > 60; Glucose Random 84 mg/dL (60-115); Potassium 3.2 mmol/L (3.3-5.1); Sodium 137 mmol/L (135-145); Total Protein 6.2 g/dL (6.5-8.0)
[2024-02-18 05:02] LABS: Lactic Acid 2.6 mmol/L (0.5-2.0)
[2024-02-18] MEDS: Albuterol Sulfate 2.5 MG, Albuterol/Iprat 2.5/0.5MG 3 ML 3 ML INHALE (05:04)
[2024-02-18 05:07] LABS: B Type Natriuretic Peptide 294 pg/mL (<100)
[2024-02-18 05:12] LABS: Influenza A PCR NEGATIVE (Negative); Influenza B PCR NEGATIVE (Negative); Resp Syncy Virus RNA Qual PCR NEGATIVE (Negative); SARS COV2 PCR INHOUSE POSITIVE (Negative)
--- NOTE | 2024-02-18 06:00 | PC.NURSE ---
discussed Rectal temp with MD and verbal order for Tylenol ordered.
[2024-02-18] MEDS: Acetaminophen 325 MG TABLET 975 MG PO (06:10)
--- NOTE | 2024-02-18 06:18 | PC.NURSE ---
Tylenol administered per order. Lung sounds improved, clear with minimal wheezing.
[2024-02-18 06:33] LABS: Reflex Lactate? Lactic Acid Added
[2024-02-18] MEDS: cefTRIAXone sodium 1 GM in 0.9 % Sodium Chloride 50 ML IV (07:08)
--- NOTE | 2024-02-18 07:17 | PC.NURSE ---
Pt is alert and oriented. Bld cultures sent and abx started as charted. No diff breathing noted however sat noted 88% on room air, placed on 2lpm with sat up to 96%. No cough noted, breathing is unlabored. Speaking full sentences. Skin midly pale, warm and dry. Peeling skin noted to left hand, B/L AKA. Coccyx with excoriated area, old dressing removed, red around and blanchable. Positioned to left side. Rectal temp rechecked and 100.9. NSR on tele. BP soft as charted.
--- NOTE | 2024-02-18 10:09 | PC.NURSE ---
patient a&ox3, vss, covid precautions intact, pt lungs diminished throughout/ bilateral lower lobe wheezing, rll crackles, pt denies pain/discomfort, at this anna, dressing to healing pressure ulcer of buttocks to be reapplied as previous one was removed/soiled, call farfan within reach, will continue to monitor.
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
[2024-02-18 11:19] LABS: Glucose, Whole Blood 235 mg/dL (60-115)
[2024-02-18 11:36] LABS: C Reactive Protein 4.96 mg/dL (< or = 0.50); Lactate Dehydrogenase 717 U/L (118-273)
--- NOTE | 2024-02-18 12:08 | PHA.MEDREC ---
Pharmacy Consult ? Medication Reconciliation Pharmacy has completed the medication reconciliation. List from [facility].
[2024-02-18] MEDS: Albuterol Sulfate 90 MCG 8 GM INHALER 2 PUFF INHALE ×2 (12:22→15:29)
--- NOTE | 2024-02-18 12:34 | PC.NURSE ---
patient continues to be a&ox3, vitals remain stable, monitoring manager SB/NSR, denies pain, sponge dressing replaced on buttocks, 2L NC- pt not normally home O2 dependent, call farfan within reach, will continue to monitor
[2024-02-18] MEDS: Apixaban 5 MG TABLET PO ×2 (12:59→20:31)
[2024-02-18] MEDS: Nicotine 7 MG PATCH.TD24 TRANSDERMA (12:59)
[2024-02-18] MEDS: Metoprolol Tartrate 25 MG TABLET PO ×2 (12:59→20:31)
[2024-02-18] MEDS: Furosemide 20 MG TABLET PO (13:00)
[2024-02-18] MEDS: Gabapentin 100 MG CAPSULE PO ×2 (15:12→20:31)
[2024-02-18] MEDS: 0.9 % Sodium Chloride Flush 3 ML SYRINGE IVFLUSH ×2 (15:13→20:31)
[2024-02-18] MEDS: Magnesium Oxide 400 MG TABLET PO (17:02)
[2024-02-18] MEDS: Atorvastatin Calcium 40 MG TABLET PO (20:31)
[2024-02-19] VITALS (9 sets, daily range): BP systolic 137–163; BP diastolic 77–89; PULSE 57–74; RESP 16–20; TEMP 36–36.6; O2SAT 92–100; BMI 30.9
[2024-02-19] MEDS: Benzonatate 100 MG CAPSULE PO (00:19)
--- NOTE | 2024-02-19 02:16 | HO.SKINPHOTO ---
Photo #1 Location: Buttocks Photo #2 Location: Base of Penis Wound Consult placed.
[2024-02-19] MEDS: Omeprazole 40 MG CAPSULE.DR PO (05:42)
[2024-02-19 07:45] LABS: Alanine Aminotransferase 13 U/L (0-40); Albumin Level 2.8 g/dL (3.5-5.0); Alkaline Phosphatase 108 U/L (39-117); Anion Gap 14 (12-20); Aspartate Amino Transferase 62 U/L (5-37); Blood Urea Nitrogen 12 mg/dL (9-16); Carbon Dioxide 26 mmol/L (22-29); Chloride 99 mmol/L (96-108); Creatinine Clr Calc Pharmacy 64.7; Estimated Glomerular Filt Rate > 60; Glucose Random 93 mg/dL (60-115); Potassium 2.7 mmol/L (3.3-5.1); Sodium 136 mmol/L (135-145); Total Protein 5.4 g/dL (6.5-8.0)
--- NOTE | 2024-02-19 08:33 | HO.WOUND ---
Original Note from 02/16/24 11:29 - Wound Note by Pat Brooks RN Acct Num: [id number] : 1960 Patient Age: 63 Patient not seen today orders and note uploaded to current admission - will continue to follow inpatient later this week. Wound Consult: Initial 63yr old?Male in the [facility] Emergency Department on 02/15/24 - See progress notes and H&P for detailed history.? Patient had recent admission and discharge and is now pending rehab placement after short period of time at home. Wound consult placed for Sacral wound POA.? Patient agreeable to assessment and photo documentation.? Patient reports the wound is in relation to his sitting in his wheel chair most days. He reports he does use a special cushion but does not see a specialist for this. Patient educated on importance of frequent position changes and moisture management - he reports understanding. Sacrum 02/16/24 _ improved from last assessment at prior admission Sacrum Etiology: Stage 3 Pressure Injury ??Present on Admission Measurements: 5cm x 2.5cm x 0.2cm with intact bridges of newly epithelialized tissue noted Wound Bed: red pink tissue Drainage / Odor: Moderate Veliz yellow drainage - no odor Edges: ? irregular Meg wound: MASD (Moisture Associated Skin Damage) ? and maceration - No Induration, Fluctuance or Warmth noted - Noted for scar tissue to bilateral ischium suspect previous full thickness injury to this area putting it at significant risk for future breakdown. Recommend off loading and consider foam application. Pain: reports mild pain Goals of Treatment: ? Durafiber AG to manage moisture and allow for autolytic healing. Bilateral Ischium with scarring Penis Etiology: Device related Mucosal Pressure Injury - ?Present on Admission Measurements: 0.4cm x 1cm x 0.2cm Wound Bed: adherent moist yellow slough Drainage / Odor: None noted Edges: ? irregular Meg wound: Intact - No Induration, Fluctuance or Warmth noted Pain: denies pain Goals of Treatment: ? Triad to protect from moisture and friction and allow for autolytic healing. Do not use Condom Cath. Recommendations: 1. Turn and Reposition every 2 hours and as needed for patient comfort.? Use pillows or wedges to support off loading positions. 2. Off Load all bony prominences with use of pillows and heel boots if needed.? Apply Preventative foams where needed. ? 3. Monitor for incontinence and moisture control, use barrier creams when needed for prevention and treatment. 4. Provide adequate and supplemental nutrition.? 5. Order low air loss mattress. 6. When applicable maintain blood glucose levels per Providers order. 7. Sacrum - Off Load Pressure - Cleanse with NS, Pat dry.? Apply barrier to periwound, lightly pack with Durafiber AG, be sure to leave a wick to easy removal.? Cover with Foam dressing.? Change every 3 days. Peel back and asses daily. 8. Penis base - Cleanse with Ph Balanced wipes. pat dry. Apply thin layer of triad to wound bed. Only pat and dab no scrub and rub when soiling occurs. Reapply thin layer PRN after each episode of incontinence. Do not use Condom / [place] Cath. Re-consult wound care Nurse for wound deterioration or wound changes. Initialized on 02/16/24 11:29 - END OF NOTE
--- NOTE | 2024-02-19 08:57 | MHC.CM.PN ---
Pt is readmitted due to dx hypoxia, and covid-19 infection. Pt was hospitalized on 02/05-02/13 and discharged home with comfort plus VNA, [facility], and TE[facility]ER [facility]IST[employer] services (although PT was recommending STR). [place] [facility] [place] and was discharged to STR at [facility]. At patients baseline he is wheelchair bound due to bilateral AKA. DCP likely will be to return to STR at [facility] once medically cleared via BLS. HCP on file and verified. PCP: Antonino JORGENSEN
[2024-02-19] MEDS: Folic Acid 1 MG TABLET PO (09:23)
[2024-02-19] MEDS: Magnesium Oxide 400 MG TABLET PO ×2 (09:23→17:15)
[2024-02-19] MEDS: Furosemide 20 MG TABLET PO (09:23)
[2024-02-19] MEDS: Metoprolol Tartrate 25 MG TABLET PO ×2 (09:23→21:55)
[2024-02-19] MEDS: Gabapentin 100 MG CAPSULE PO ×3 (09:24→21:55)
[2024-02-19] MEDS: Apixaban 5 MG TABLET PO ×2 (09:24→21:55)
[2024-02-19] MEDS: 0.9 % Sodium Chloride Flush 3 ML SYRINGE IVFLUSH ×2 (09:24→17:15)
[2024-02-19] MEDS: dexAMETHasone 6 MG TABLET PO (09:24)
[2024-02-19] MEDS: Thiamine HCL 100 MG TABLET PO (09:24)
[2024-02-19] MEDS: cefTRIAXone sodium 1 GM in 0.9 % Sodium Chloride 50 ML IV (09:25)
--- NOTE | 2024-02-19 11:24 | HO.PM.IMPN ---
Subjective Subjective Date of Service: 02/19/24 Interval History: Feels better no fever overnight still on O2 supplement no reported overnight events Review of Systems no more fever, chills and weakness No chest pain, palpitation mild shortness of breath and coughing No abdominal pain, nausea or vomiting No urinary symptoms Physical Exam Vital Signs: Vital Signs: Last Vital Signs Temp 97.6 F 02/19/24 08:00 Pulse 62 02/19/24 09:23 Resp 20 02/19/24 08:00 BP 161/83 H 02/19/24 09:23 Pulse Ox 95 02/19/24 08:00 O2 Del Method Nasal Cannula 02/19/24 08:00 O2 Flow Rate 2 02/19/24 08:00 BMI result Body Mass Index 30.9 Const: Other: Constitutional : Awake, interactive, not in distress Neck : Normal inspection, Supple Cardiovascular : RRR, no JVP, Respiratory : decreased bilateral air entry, scattered bilateral expiratory fine wheezes Gastrointestinal: soft, lax, Normal bowel sounds, Non tender Skin : Warm, Dry, Stage 3 buttock wound covered with dressing extremities: above knee amputation bilaterally Neurological : Alert & oriented x3, No focal deficit Objective Data Active Medications Acetaminophen (Acetaminophen 325 Mg Tablet) 650 mg PO Q6H PRN PRN Reason: Pain, Mild (Pain Scale 1-3) Albuterol Sulfate (Albuterol Sulfate (0.083%) 2.5 Mg/3 Ml Vial.Neb) 2.5 mg INHALE Q4H PRN PRN Reason: Shortness of Breath/Wheezing Albuterol Sulfate (Albuterol Sulfate 90 Mcg 8 Gm Inhaler) 2 puff INHALE RQID [facility] Last Admin: 02/19/24 08:07 Dose: Not Given Documented By: DEVIN Non-Admin Reason: Med Not Available Apixaban (Apixaban 5 Mg Tablet) 5 mg PO BID [facility] Last Admin: 02/19/24 09:24 Dose: 5 mg Documented By: JASON Atorvastatin Calcium (Atorvastatin Calcium 40 Mg Tablet) 40 mg PO BEDTIME [facility] Last Admin: 02/18/24 20:31 Dose: 40 mg Documented By: DIANA Benzonatate (Benzonatate 100 Mg Capsule) 100 mg PO TID PRN PRN Reason: Cough Last Admin: 02/19/24 00:19 Dose: 100 mg Documented By: HO.ANTOIC Dexamethasone (Dexamethasone 6 Mg Tablet) 6 mg PO DAILY [facility] Last Admin: 02/19/24 09:24 Dose: 6 mg Documented By: JASON Folic Acid (Folic Acid 1 Mg Tablet) 1 mg PO DAILY [facility] Last Admin: 02/19/24 09:23 Dose: 1 mg Documented By: JASON Furosemide (Furosemide 20 Mg Tablet) 20 mg PO DAILY [facility]; Protocol Last Admin: 02/19/24 09:23 Dose: 20 mg Documented By: JASON Gabapentin (Gabapentin 100 Mg Capsule) 100 mg PO TID [facility] Last Admin: 02/19/24 09:24 Dose: 100 mg Documented By: JASON Ceftriaxone Sodium 1 gm/ (Sodium Chloride) 50 mls @ 100 mls/hr IV Q24H [facility] Last Infusion: 02/19/24 10:20 Dose: Infused Documented By: JASON Magnesium Oxide (Magnesium Oxide 400 Mg Tablet) 400 mg PO BIDPC [facility] Last Admin: 02/19/24 09:23 Dose: 400 mg Documented By: JASON Melatonin (Melatonin 3 Mg Tablet) 6 mg PO BEDTIME PRN PRN Reason: Insomnia Metoprolol Tartrate (Metoprolol Tartrate 25 Mg Tablet) 25 mg PO BID [facility]; Protocol Last Admin: 02/19/24 09:23 Dose: 25 mg Documented By: JASON Nicotine (Nicotine 7 Mg Patch.Td24) 7 mg TRANSDERMA Q24H [facility] Last Admin: 02/18/24 12:59 Dose: 7 mg Documented By: CHRISTIE Omeprazole (Omeprazole 40 Mg Capsule.) 40 mg PO DAILY@0630 [facility] Last Admin: 02/19/24 05:42 Dose: 40 mg Documented By: BREONNA Ondansetron HCl (Ondansetron Hcl 4 Mg/2 Ml Vial) 4 mg IVPUSH Q8H PRN PRN Reason: Nausea and Vomiting Sodium Chloride (0.9 % Sodium Chloride Flush 3 Ml Syringe) 3 ml IVFLUSH QSHIFT [facility] Last Admin: 02/19/24 09:24 Dose: 3 ml Documented By: JASON Thiamine HCl (Thiamine Hcl 100 Mg Tablet) 100 mg PO DAILY [facility] Last Admin: 02/19/24 09:24 Dose: 100 mg Documented By: HO.MALDOT Labs 02/18/24 04:29 02/19/24 07:07 Labs: Laboratory Results - last 24 hr 02/18/24 02/19/24 04:29 07:07 Hold Purple Top SEE NOTE Anion Gap 14 Estim Creat Clear Calc 64.7 Estimated GFR > 60 Random Glucose 93 Calcium 8.0 L Total Bilirubin 1.0 AST 62 H ALT 13 Alkaline Phosphatase 108 Lactate Dehydrogenase 717 H C-Reactive Protein 4.96 H Total Protein 5.4 L Albumin 2.8 L Microbiology Microbiology Results: Microbiology 02/18/24 06:51 Blood Culture - Preliminary Blood - Venous Gram negative tyesha 02/18/24 06:51 Blood Culture - Preliminary Blood - Venous No growth after 24 hours. Assessment and Plan (1) Acute respiratory failure with hypoxia: Status: Acute (2) COVID-19: Status: Acute (3) Gram-negative bacteremia: Status: Acute Plan 63-year-old male wheelchair bound with a PMH significant for?AFib on Eliquis, HFrEF, peripheral artery disease, COPD not on home oxygen, HTN, HLD, alcohol use disorder, and bilateral AKA who presented with dyspnea and fever. Acute hypoxia 2/2 Covid19 infection complicated with viral sepsis CXR showing residual atelactasis continue Dexamethasone 6 mg daily ID consult for need of anti-viral Wean down O2 as tolerated follow inflammatory markers Acute hypokalemia replacement give follow BMP Acute lactic acidosis secondary to hypoxia, resolved Gram negative bacteremia likely 2/2 UTI Cx from 02/14 growing E.Coli blood cultures growing GNR, pending sensitivity Continue Ceftriaxone Transaminitis chronic, stable Persistent atrial fibrillation Eliquis continue metoprolol Chronic systolic CHF continue lasix DVT prophylaxis with Eliquis The patient will need overnight hospital stay for treatment of acute hypoxemia from covid 19 infection requriing IV steroids, O2 supplement pending ID consultation. Quality Stroke Does the patient have a stroke diagnosis?: No VTE Prior VTE?: No VTE Risk Level:: Medical - moderate - high VTE Device Contraindication: Treatment Not Indicated VTE Drug Contraindication: N/A - Med Ordered
[2024-02-19] MEDS: Albuterol Sulfate 90 MCG 8 GM INHALER 2 PUFF INHALE ×2 (11:41→19:59)
--- NOTE | 2024-02-19 12:25 | MHC.CLN ---
PT WITH INCREASED NUTRITION RISK R/T PRESSURE INJURY DIET RX: 2GM NA-APPROPRIATE RECOMMEND ADDING ENSURE MAX BID TO PROMOTE WOUND HEALING SUPPLEMENT PROVIDES 300KCALS, 60G PROTEIN MONITOR PO INTAKE AND ENCOURAGE SUPPLEMENTS SEE ALSO FULL CLINICAL NUTRITION ASSESSMENT
[2024-02-19] MEDS: Potassium Chloride Packet 20 MEQ PACKET 40 MEQ PO ×2 (12:49→14:14)
[2024-02-19] MEDS: Potassium Chloride/H20 10 MEQ/100 ML PIGGYBACK 100 MEQ IV (12:49)
[2024-02-19] MEDS: Nicotine 7 MG PATCH.TD24 TRANSDERMA (12:50)
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
[2024-02-19] MEDS: Atorvastatin Calcium 40 MG TABLET PO (21:55)
[2024-02-19] MEDS: Melatonin 3 MG TABLET 6 MG PO (21:57)
[2024-02-20] VITALS (7 sets, daily range): BP systolic 152–168; BP diastolic 87–92; PULSE 55–61; RESP 16–20; TEMP 36.1–36.6; O2SAT 95–100
[2024-02-20] MEDS: 0.9 % Sodium Chloride Flush 3 ML SYRINGE IVFLUSH ×2 (00:46→09:20)
[2024-02-20] MEDS: Omeprazole 40 MG CAPSULE.DR PO (06:28)
[2024-02-20] MEDS: cefTRIAXone sodium 1 GM in 0.9 % Sodium Chloride 50 ML IV (06:28)
[2024-02-20 06:30] LABS: Hematocrit 24.4 % (42.0-52.0); Hemoglobin 8.4 g/dl (14.0-18.0); Mean Corpuscular HGB Conc 34.4 g/dl (31.0-36.0); Mean Corpuscular Hemoglobin 32.6 pg (27.0-33.0); Mean Corpuscular Volume 94.6 fL (80.0-98.0); Mean Platelet Volume 9.7 fL (9.4-12.4); Platelet Count 189 X10*3/uL (160-400); Red Blood Count 2.58 X10*6/uL (4.60-5.80); Red Cell Distribution Width 15.8 % (11.0-16.0); White Blood Count 6.3 X10*3/uL (4.8-10.8)
[2024-02-20 06:50] LABS: Anion Gap 13 (12-20); Blood Urea Nitrogen 11 mg/dL (9-16); C Reactive Protein 4.65 mg/dL (< or = 0.50); Calcium 8.5 mg/dL (8.4-10.2); Carbon Dioxide 25 mmol/L (22-29); Chloride 100 mmol/L (96-108); Creatinine Clr Calc Pharmacy 72.2; Estimated Glomerular Filt Rate > 60; Glucose Random 100 mg/dL (60-115); Lactate Dehydrogenase 620 U/L (118-273); Sodium 134 mmol/L (135-145)
[2024-02-20] MEDS: Albuterol Sulfate 90 MCG 8 GM INHALER 2 PUFF INHALE ×2 (08:49→11:53)
[2024-02-20] MEDS: Apixaban 5 MG TABLET PO (09:19)
[2024-02-20] MEDS: Thiamine HCL 100 MG TABLET PO (09:19)
[2024-02-20] MEDS: Magnesium Oxide 400 MG TABLET PO (09:20)
[2024-02-20] MEDS: Folic Acid 1 MG TABLET PO (09:20)
[2024-02-20] MEDS: Furosemide 20 MG TABLET PO (09:20)
[2024-02-20] MEDS: dexAMETHasone 6 MG TABLET PO (09:20)
[2024-02-20] MEDS: Gabapentin 100 MG CAPSULE PO ×2 (09:20→16:04)
[2024-02-20] MEDS: Nicotine 7 MG PATCH.TD24 TRANSDERMA (13:13)
--- NOTE | 2024-02-20 13:54 | MHC.CM.PN ---
Pt has been medically cleared for DC, he will go today to [facility] for STR via BLS.
--- NOTE | 2024-02-20 15:09 | PM.DS ---
DS: Providers Provider Date of Service: 02/20/24 Date of admission: 02/18/24 10:06 Primary care physician: NAT DEMPSEY Consults: 02/18/24 10:08 Consult to Infectious Diseases Routine Consulting Provider: [facility] Reason for consultation: Covid19 w Hypoxia, need of Remdisivir 02/19/24 02:13 Consult to Wound Care Routine Reason for consultation: Wound on buttocks and base of penis DS: Diagnosis Discharge Diagnosis (1) Sepsis: Status: Acute (2) Gram-negative bacteremia: Status: Acute (3) Acute respiratory failure with hypoxia: Status: Acute (4) COVID-19: Status: Acute DS: Summary Hospital Course Hospital Course: Admission note HPI 63-year-old male wheelchair bound with a PMH significant for?AFib on Eliquis, HFrEF, peripheral artery disease, COPD not on home oxygen, HTN, HLD, alcohol use disorder, and bilateral AKA who presented with dyspnea and fever. The patient was recently discharged to SNF after being treated for alcoholic hepatitis and alcohol withdrawal on 02/13. tested positive for Covid on 02/14. He reports feeling more SOB and dyspnea with associated fever and chills. No chest pain, palpitations, nausea, vomiting, diarrhea or urinary symptoms. In ED he was fevril. required 2L of O2 as he dropped it on RA to 88%. Has +ve Urine test w Ecoli and started on IV antibiotics. CXR not showing any specific infiltrates. Admitted for further evaluation and treatment. Hospital course # Acute hypoxia secondary to Covid19 infection He was hypoxic on RA requiring O2 supplement. Started on Dexamethasone 6 mg daily along with bronchodilators with good response as he was weaned down O2 supplement to 2L only. ID consulted and recommended no need of anti-viral medications given symptoms >3 days. will be discharged on Dexamethasone to finish total of 10 days of therapy. # E.Coli UTI complicated with bacteremia and sepsis on admission. treated with IV Ceftriaxone. To be discharged on Levaquin to finish total of 14 days of antibiotics. # Acute hypokalemia replacement given and corrected # Acute lactic acidosis secondary to hypoxia, resolved Discharge plan Dexamethasone 4 mg daily Levaquin 500 mg daily Stop Ceftin Increase physical activity as tolerated Time Attestation Discharge Coordination Time (in mins): 38 Quality: Safe Use of Opioids Does Pt have an Active Cancer Diagnosis on the Problem List?: No Quality: Stroke Does the patient have a stroke diagnosis?: No Physical Exam Vital Signs: Vital Signs: Last Vital Signs Temp 97.1 F 02/20/24 11:44 Pulse 59 02/20/24 11:55 Resp 16 02/20/24 11:55 BP 152/87 H 02/20/24 11:44 Pulse Ox 95 02/20/24 11:44 O2 Del Method Nasal Cannula 02/20/24 11:44 O2 Flow Rate 2 02/20/24 11:44 BMI result Body Mass Index 30.9 Const: Other: Constitutional : Awake, interactive, not in distress Neck : Normal inspection, Supple Cardiovascular : RRR, no JVP, Respiratory : fair bilateral air entry, no wheezes Gastrointestinal: soft, lax, Normal bowel sounds, Non tender Skin : Warm, Dry, Stage 3 buttock wound covered with dressing extremities: above knee amputation bilaterally Neurological : Alert & oriented x3, No focal deficit DS: Data Data Completed and Pending Completed studies during hospitalization [Text1]: Procedures Detachment at Left Upper Leg, Mid, Open Approach (03/13/23) Detachment at Right Upper Leg, Mid, Open Approach (02/09/23) Detoxification Services for Substance Abuse Treatment (02/06/24) Insertion of Monitoring Device into Right Pulmonary Artery, Percutaneous Approach (07/24/21) Transfusion of Nonautologous Red Blood Cells into Peripheral Vein, Percutaneous Approach (02/06/24) Labs on day of discharge: Laboratory Results - last 24 hr 02/20/24 06:02 WBC 6.3 RBC 2.58 L Hgb 8.4 L Hct 24.4 L MCV 94.6 MCH 32.6 MCHC 34.4 RDW 15.8 Plt Count 189 MPV 9.7 Absolute Nucleated RBC 0.000 Nucleated RBC % (auto) 0.0 Sodium 134 L Potassium 4.0 D Chloride 100 Carbon Dioxide 25 Anion Gap 13 BUN 11 Creatinine 0.69 Estim Creat Clear Calc 72.2 Estimated GFR > 60 Random Glucose 100 Calcium 8.5 D Lactate Dehydrogenase 620 H C-Reactive Protein 4.65 H Preliminary micro results at discharge 02/18/24 06:51 Blood Culture - Preliminary Blood - Venous Gram negative tyesha 02/18/24 06:51 Blood Culture - Preliminary Blood - Venous No growth after 48 hours. Imaging Chest x-ray: Radiologist's impression: ITS Impressions Chest X-Ray 02/18/24 04:45 IMPRESSION: Decreased right perihilar opacity compared to prior with suggestion of some residual atelectasis. Discharge Plan Discharge Anticipated Discharge Date/Time: 02/20/24 14:57 Patient Disposition: Xfer SNF Discharge Diagnosis: Covid 19 infection Urine infection Referrals: [facility] [Outside] - 1 Week NAT DEMPSEY [Primary Care Provider] - 1 Week Discharge Medications: New levofloxacin 500 mg tablet 500 mg PO DAILY Qty: 12 0RF dexamethasone 4 mg tablet 4 mg PO DAILY Qty: 7 0RF Continued (DME) power scooter See Rx Instructions .Route .MEDSUPPLY Qty: 1 0RF Rx Instructions: daily use thiamine mononitrate (vit B1) 100 mg tablet 100 mg PO DAILY Qty: 30 3RF folic acid 1 mg tablet 1 mg PO DAILY 90 Days Qty: 90 1RF gabapentin 100 mg capsule 100 mg PO TID 30 Days Qty: 90 1RF magnesium oxide 400 mg (241.3 mg magnesium) tablet 400 mg PO BIDPC 30 Days Qty: 60 0RF Eliquis 5 mg tablet 5 mg PO BID Qty: 180 3RF furosemide 20 mg tablet 20 mg PO DAILY Qty: 90 3RF omeprazole 40 mg capsule,delayed release(DR/EC) 40 mg PO DAILY@0630 90 Days Qty: 90 1RF atorvastatin 40 mg tablet 40 mg PO BEDTIME 90 Days Qty: 90 2RF acetaminophen [Athenol] 325 mg tablet 650 mg PO QID PRN (Reason: pain (scale score 1-3)) Qty: 10 0RF metoprolol tartrate 25 mg tablet 25 mg PO BID Qty: 180 0RF nicotine 7 mg/24 hr Patch 24 Hour 1 patch TRANSDERMAL Q24H Discontinued cefuroxime axetil 250 mg tablet 250 mg PO BID 7 Days Qty: 14 0RF Rx Instructions: END DATE: 02/23/24 Discharge Orders: Discharge Order (Routine); Ordered 02/20/24 Ordered By: Teresa Barnard Diet: Advance to usual diet Activity on Discharge: As tolerated Stand Alone Forms: Patient Portal Discharge page Print Language: [place] Care Plan Goals: You have urine infection complicated by blood infection. Treated with IV antibiotics with good response. You were also tested positive for Covid19 responded well to steroids and inhalors. Dexamethasone 4 mg daily Levaquin 500 mg daily Stop Ceftin Increase physical activity as tolerated Health Concerns: Read below Plan of Treatment: Read below Assessment: Read below
== END 2024-02-20 18:48 | disposition skilled nursing facility (03) | DRG 720 ==
LOC: HO.ED 06:51 → HO.EDOVER 11:58 → HO.IMC 15:16
PROVIDERS: Admitting Provider Student in an Organized Health Care Education/Training Program; Emergency Provider Emergency Medicine Emergency Medical Services; PCP Emergency Medicine; Visit Provider Student in an Organized Health Care Education/Training Program
DX: A41.89 Other specified sepsis (principal); U07.1 COVID-19; I50.22 Chronic systolic (congestive) heart failure; Z89.611 Acquired absence of right leg above knee; I11.0 Hypertensive heart disease with heart failure; I48.19 Other persistent atrial fibrillation; N39.0 Urinary tract infection, site not specified; B96.20 Unspecified Escherichia coli [E. coli] as the cause of diseases classified elsewhere; R09.02 Hypoxemia; J98.11 Atelectasis; E87.6 Hypokalemia; F10.20 Alcohol dependence, uncomplicated; F17.210 Nicotine dependence, cigarettes, uncomplicated; Z89.612 Acquired absence of left leg above knee; Z99.3 Dependence on wheelchair; Z71.6 Tobacco abuse counseling; Z79.01 Long term (current) use of anticoagulants; Z79.899 Other long term (current) drug therapy
CPT/HCPCS: 0241U; 36415; 71045; 80048; 80053; 82803; 82947; 83605; 83615; 83880; 84484; 85025; 85027; 86140; 87040; 87077; 87186; 87205; 93005; 94640; 97162; 99285; J0696; J2919; J3480; J8540

== ENCOUNTER → 2024-02-18 04:28 | Outpatient (BNV) | payer OTHER, MEDICAID, SELFPAY | PROVIDERS: Emergency Provider Emergency Medicine Emergency Medical Services; PCP Emergency Medicine; Visit Provider Internal Medicine | DX: R94.31 Abnormal electrocardiogram [ECG] [EKG] (principal) | CPT/HCPCS: 93010 ==

== ENCOUNTER → 2024-02-18 10:06 | Outpatient (BNV) | payer OTHER, MEDICAID, SELFPAY | PROVIDERS: Admitting Provider Student in an Organized Health Care Education/Training Program; Emergency Provider Emergency Medicine Emergency Medical Services; PCP Emergency Medicine; Visit Provider Internal Medicine | DX: A41.9 Sepsis, unspecified organism (principal); R78.81 Bacteremia; J96.01 Acute respiratory failure with hypoxia; U07.1 COVID-19 | CPT/HCPCS: 99222 ==

== ENCOUNTER → 2024-02-18 10:06 | Outpatient (BNV) | payer OTHER, MEDICAID, SELFPAY | PROVIDERS: Admitting Provider Student in an Organized Health Care Education/Training Program; Emergency Provider Emergency Medicine Emergency Medical Services; PCP Emergency Medicine; Visit Provider Student in an Organized Health Care Education/Training Program | DX: N39.0 Urinary tract infection, site not specified (principal); B96.20 Unspecified Escherichia coli [E. coli] as the cause of diseases classified elsewhere; U07.1 COVID-19; R06.00 Dyspnea, unspecified; J96.01 Acute respiratory failure with hypoxia; E87.6 Hypokalemia; A41.9 Sepsis, unspecified organism; R78.81 Bacteremia | CPT/HCPCS: 99223; 99232; 99239 ==

== ENCOUNTER 2024-03-28 15:23 | Outpatient (AMB) | payer OTHER, SELFPAY ==
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
[2024-03-28 15:34] VITALS: BP 108/66; PULSE 62; O2SAT 98
== END 2024-03-28 16:38 | disposition home or self-care (01) ==
PROVIDERS: PCP Nurse Practitioner Family; Visit Provider Nurse Practitioner Family
DX: A41.9 Sepsis, unspecified organism (principal); E83.42 Hypomagnesemia; E87.20 Acidosis, unspecified; R78.81 Bacteremia; J96.01 Acute respiratory failure with hypoxia; U07.1 COVID-19
CPT/HCPCS: 99214

== ENCOUNTER 2024-04-08 13:19 | Outpatient (REF) | payer OTHER, MEDICAID, SELFPAY ==
--- NOTE | ~2024-04-08 | XR_ITS ---
EXAMINATION: XR CHEST CLINICAL INFORMATION: Acute respiratory failure with hypoxia COMPARISON: 02/18/2024 TECHNIQUE: 2 views of the chest were obtained. FINDINGS: The heart and pulmonary vessels appear normal. There is no evidence of CHF. No pneumothorax. There is now complete clearing of the previously seen right perihilar infiltrate/atelectasis. No consolidations, large effusions or lung masses are seen. Chronic calcification seen in the left supraspinatus tendon. XR/XR chest 2V IMPRESSION: No acute intrathoracic disease.
[2024-04-08 15:56] LABS: MANUAL DIFF FLAG NO
[2024-04-08 16:00] LABS: Appearance Urine Clear; Color Urine Yellow; Glucose Urine UA Negative (Negative); Leukocyte Esterase Urine Negative (Negative); Nitrite Urine Negative (Negative); PH 5.5 (5.0-9.0); Specific Gravity - Urine 1.015 (1.005-1.025); Urine Blood Negative (Negative); Urine Ketones Negative (Negative); Urine Protein Negative (Neg-Trace)
[2024-04-08 16:01] LABS: Basophils Absolute Auto 0.1 X10*3/uL (0.0-0.2); Basophils Percent Auto 1.6 % (0-2); Eosinophils Absolute Auto 0.3 X10*3/uL (0.0-0.4); Eosinophils Percent Auto 4.8 % (0-4); Hemoglobin 11.1 g/dl (14.0-18.0); Imm Gran Abs Auto 0.03 X10*3/uL (0.00-0.03); Imm Gran Pct Auto 0.5 % (0.0-0.4); Lymphocytes Absolute Auto 1.4 X10*3/uL (1.2-4.9); Lymphocytes Percent Auto 21.4 % (20-40); Mean Corpuscular HGB Conc 31.7 g/dl (31.0-36.0); Mean Corpuscular Hemoglobin 29.4 pg (27.0-33.0); Mean Corpuscular Volume 92.8 fL (80.0-98.0); Mean Platelet Volume 9.4 fL (9.4-12.4); Monocytes Absolute Auto 0.8 X10*3/uL (0.1-1.2); Monocytes Percent Auto 12.3 % (2-11); Neutrophils Absolute Auto 3.8 x10*3/uL (2.0-8.3); Neutrophils Percent Auto 59.4 % (45-73); Platelet Count 292 X10*3/uL (160-400); Red Blood Count 3.77 X10*6/uL (4.60-5.80); Red Cell Distribution Width 15.1 % (11.0-16.0); White Blood Count 6.4 X10*3/uL (4.8-10.8)
[2024-04-08 16:26] LABS: Alanine Aminotransferase 10 U/L (0-40); Albumin Level 3.6 g/dL (3.5-5.0); Alkaline Phosphatase 68 U/L (39-117); Anion Gap 15 (12-20); Aspartate Amino Transferase 26 U/L (5-37); Bilirubin Total 0.4 mg/dL (0.0-1.0); Blood Urea Nitrogen 12 mg/dL (9-16); Calcium 9.8 mg/dL (8.4-10.2); Carbon Dioxide 26 mmol/L (22-29); Chloride 102 mmol/L (96-108); Cholesterol 131 mg/dL (<200); Estimated Glomerular Filt Rate > 60; Glucose Fasting 96 mg/dL (60-99); HDL Cholesterol 34 mg/dL (>40); LDL Cholesterol Calculated 56 mg/dL (<100); Magnesium 2.1 mg/dL (1.6-2.6); Potassium 4.5 mmol/L (3.3-5.1); Sodium 138 mmol/L (135-145); Total Protein 6.8 g/dL (6.5-8.0); Triglycerides 205 mg/dL (<150)
[2024-04-08 17:07] LABS: Free T4 (Free Thyroxine) 0.49 ng/dL (0.71-1.85)
[2024-04-09 09:39] LABS: Thyroid Peroxidase Antibodies <1 IU/mL (<9)
== END 2024-04-08 13:20 | disposition home or self-care (01) ==
LOC: HO.HMGCX 13:19
PROVIDERS: PCP Nurse Practitioner Family; Visit Provider Nurse Practitioner Family
DX: J96.01 Acute respiratory failure with hypoxia (principal); R78.81 Bacteremia; E83.42 Hypomagnesemia; I48.91 Unspecified atrial fibrillation; F10.951 Alcohol use, unspecified with alcohol-induced psychotic disorder with hallucinations; R79.89 Other specified abnormal findings of blood chemistry; U07.1 COVID-19; E87.20 Acidosis, unspecified
CPT/HCPCS: 36415; 71046; 80053; 80061; 81003; 83735; 84439; 84443; 85025; 86376

== ENCOUNTER 2024-04-12 13:07 | Outpatient (REF) | payer OTHER, MEDICAID, SELFPAY ==
[2024-04-12 16:39] LABS: TSH reflex Free T4 53.93 uIU/mL (0.32-4.0)
== END 2024-04-12 13:08 | disposition home or self-care (01) ==
LOC: HO.HMGCLDS 13:07
PROVIDERS: PCP Nurse Practitioner Family; Visit Provider Nurse Practitioner Family
DX: R79.89 Other specified abnormal findings of blood chemistry (principal)
CPT/HCPCS: 36415; 84439; 84443

== ENCOUNTER 2024-05-10 13:31 | Outpatient (AMB) | payer OTHER, MEDICAID, SELFPAY ==
[2024-05-10 13:34] VITALS: BP 122/62; PULSE 63
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
== END 2024-05-10 14:22 | disposition home or self-care (01) ==
PROVIDERS: PCP Nurse Practitioner Family; Visit Provider Nurse Practitioner Family
DX: I48.0 Paroxysmal atrial fibrillation (principal); I42.9 Cardiomyopathy, unspecified; I25.10 Atherosclerotic heart disease of native coronary artery without angina pectoris; Z09 Encounter for follow-up examination after completed treatment for conditions other than malignant neoplasm
CPT/HCPCS: 93010; 99214

== ENCOUNTER → 2024-05-10 13:31 | Outpatient (BNVA) | payer OTHER, MEDICAID, SELFPAY | PROVIDERS: PCP Nurse Practitioner Family; Visit Provider Nurse Practitioner Family | DX: I48.0 Paroxysmal atrial fibrillation (principal); I42.9 Cardiomyopathy, unspecified; I25.10 Atherosclerotic heart disease of native coronary artery without angina pectoris; Z79.01 Long term (current) use of anticoagulants; Z79.899 Other long term (current) drug therapy | CPT/HCPCS: 93005 ==

== ENCOUNTER 2024-08-01 10:57 | Outpatient (REF) | payer OTHER, MEDICAID, SELFPAY ==
[2024-08-01 14:14] LABS: Alanine Aminotransferase 25 U/L (0-40); Albumin Level 4.2 g/dL (3.5-5.0); Alkaline Phosphatase 79 U/L (39-117); Anion Gap 16 (12-20); Aspartate Amino Transferase 124 U/L (5-37); Bilirubin Total 0.8 mg/dL (0.0-1.0); Blood Urea Nitrogen 9 mg/dL (9-16); Carbon Dioxide 28 mmol/L (22-29); Chloride 105 mmol/L (96-108); Estimated Glomerular Filt Rate > 60; Glucose Random 95 mg/dL (60-115); Magnesium 1.5 mg/dL (1.6-2.6); Potassium 3.6 mmol/L (3.3-5.1); Sodium 145 mmol/L (135-145); Total Protein 7.2 g/dL (6.5-8.0)
[2024-08-01 14:19] LABS: TSH reflex Free T4 7.69 uIU/mL (0.32-4.0)
== END 2024-08-01 10:58 | disposition home or self-care (01) ==
LOC: HO.HMGCLDS 10:57
PROVIDERS: PCP Nurse Practitioner Family; Visit Provider Nurse Practitioner Family
DX: F10.951 Alcohol use, unspecified with alcohol-induced psychotic disorder with hallucinations (principal); E87.6 Hypokalemia; E83.42 Hypomagnesemia; W19.XXXA Unspecified fall, initial encounter; I48.91 Unspecified atrial fibrillation
CPT/HCPCS: 36415; 80053; 83735; 84439; 84443

== ENCOUNTER 2024-08-29 14:07 | Outpatient (AMB) | payer OTHER, MEDICAID, SELFPAY ==
[2024-08-29 14:15] VITALS: BP 132/70; PULSE 92; O2SAT 99
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
== END 2024-08-29 15:50 | disposition home or self-care (01) ==
PROVIDERS: PCP Nurse Practitioner Family; Visit Provider Nurse Practitioner Family
DX: L98.9 Disorder of the skin and subcutaneous tissue, unspecified (principal); I10 Essential (primary) hypertension; F17.200 Nicotine dependence, unspecified, uncomplicated; Z23 Encounter for immunization

== ENCOUNTER → 2024-08-29 14:07 | Outpatient (BNVA) | payer OTHER, MEDICAID, SELFPAY | PROVIDERS: PCP Nurse Practitioner Family; Visit Provider Nurse Practitioner Family | DX: L98.9 Disorder of the skin and subcutaneous tissue, unspecified (principal); I10 Essential (primary) hypertension; Z23 Encounter for immunization | CPT/HCPCS: 90471; 90677; 96127 ==

== ENCOUNTER 2024-12-07 13:45 | Outpatient (AMB) | payer MEDICARE, SELFPAY ==
--- NOTE | 2024-12-07 13:54 | AM.OFFWIN_ITS ---
Intake Vital Signs 12/07/24 14:04 BMI Reason not done Patient refused/unable BP 132/72 Blood Pressure Location Rt brachial Position Sitting Respiration 16 Pulse 72 Pulse Source Pulse Oximeter Temp 99.1 F Temp Source Oral Pulse Oximetry (%) 99 Oxygen Delivery Method Room Air Intake Visit Reasons: EP Bump on LT side of forehead & face Intake Note: Pt is here today rolled in bed and hit wall bump on Lt side of forehead and face. Denies any falls Patient Tobacco Use Status: Current everyday Tobacco user Allergies bee pollen [BEE STINGS] Allergy (Severe, Verified 12/07/24 14:02) SWELLING HPI EP Bump on LT side of forehead & face HPI Details patient says he ruled out of bed a couple days ago and banged his forehead on his nightstand. He is on Eliquis. No loss of consciousness, change in mentation/confusion Has hematoma on left forehead with dependent bruising/ hematoma on left cheek he has no focal weakness or other complaints. otherwise feels well. [facility] Medical History (Updated 12/07/24 @ 14:18 by Nii Holman MD) History of alcohol abuse History of above-knee amputation of both lower extremities PAD (peripheral artery disease) Coronary artery disease Heart failure with reduced ejection fraction Ischemic cardiomyopathy Paroxysmal A-fib Apical mural thrombus HTN (hypertension) History of sepsis Anemia COPD (chronic obstructive pulmonary disease) Nicotine dependence, cigarettes, uncomplicated Physical deconditioning Surgical History (Updated 10/14/24 @ 15:03 by Mercedez Lopez PA-C) History of left inguinal hernia repair History of colonoscopy History of left above knee amputation History of right above knee amputation H/O skin graft History of cardiac cath H/O left knee surgery Family History Mother Hx of CABG Social History Household Members: None Household Members Other:: none Housing: Apartment Housing Other:: Living with sister. Do you presently have visiting nurse or other home services: Yes Unable to assess alcohol history related to: Unknown Alcohol intake: never Comment: Bilateral AKA Patient Tobacco Use Status: Current everyday Tobacco user Tobacco use type: Cigar Cigarette Packs Per Day: 0.5 Cigarettes Per Day: 10.0 Years Smoked: 25 e-Cigarette/Vaping Use: Never Used Second Hand Smoke Exposure: Yes Substance Use Type: Marijuana Advance Directives Date on File: 11/25/22 service: No Current occupational status: retired Cognitive needs: No Hearing needs: No Vision needs: No Review of Systems Const Denies chills, Denies fatigue, Denies fever(s), Denies headache(s) and Denies weakness ENT Denies dizziness and Denies headache(s) Card Denies dyspnea Resp Denies cough, Denies dyspnea, Denies wheezing and Denies other ( shortness of breath) Musc Denies numbness and Denies tingling Skin/Breast Details: Lump on forehead and bruising on cheek Neuro Denies dizziness, Denies headache(s), Denies numbness, Denies tingling, Denies paresthesias and Denies weakness Psych Denies anxiety and Denies depression Endo Denies fatigue Aller/Immun Denies wheezing Physical Exam Vital Signs: Last Vital Signs Temp 99.1 F 12/07/24 14:04 Pulse 72 12/07/24 14:04 Resp 16 12/07/24 14:04 BP 132/72 12/07/24 14:04 Pulse Ox 99 12/07/24 14:04 Oxygen Delivery Method Room Air 12/07/24 14:04 Const General: no acute distress and well developed Nutritional Appearance: well nourished Orientation/consciousness: patient oriented x3 HEENT Head: Yes normocephalic and Yes atraumatic Eyes Other: PERRLA General: appearance normal, both eyes and all related structures Pupils: Equal, round and reactive pupils present EOM: EOMs intact bilaterally Resp Effort & Inspection: normal respiratory effort Skin Other: hematoma as left forehead and dependent bruising/ hematoma at left cheek. No tenderness or crepitus over lesions. Neuro Other: Cranial 2 - 12 nerves intact normal strength bilateral hands and arms normal mentation and speech General: patient oriented x3 Cranial nerves: Yes Equal, round and reactive pupils present Psych Affect: normal affect Assessment & Plan Assessment & Plan (1) Contusion of forehead: Code(s): S00.83XA - Contusion of other part of head, initial encounter Plan: fall out of bed with contusion of forehead and subsequent hematoma as patient is on Eliquis. No concussive symptoms. no focal neurologic deficits or evidence of intracranial bleeding patient can use cool compresses will gradually resolve (2) Hematoma: Code(s): T14.8XXA - Other injury of unspecified body region, initial encounter Plan: as above Coding Level of Care Code Est Pt Level 3 (51648) Diagnoses Contusion of forehead S00.83XA Hematoma T14.8XXA
[2024-12-07 14:04] VITALS: BP 132/72; PULSE 72; RESP 16; TEMP 37.3; O2SAT 99
== END 2024-12-07 14:26 | disposition home or self-care (01) ==
PROVIDERS: PCP Nurse Practitioner Family; Visit Provider Family Medicine
DX: S00.83XA Contusion of other part of head, initial encounter (principal); T14.8XXA Other injury of unspecified body region, initial encounter

== ENCOUNTER → 2024-12-07 13:45 | Outpatient (BNVA) | payer MEDICARE, MEDICAID, SELFPAY | PROVIDERS: PCP Nurse Practitioner Family | DX: S00.83XA Contusion of other part of head, initial encounter (principal); T14.8XXA Other injury of unspecified body region, initial encounter | CPT/HCPCS: 99212 ==

== ENCOUNTER 2024-12-19 12:40 | Outpatient (REF) | payer MEDICARE, SELFPAY ==
[2024-12-19 16:22] LABS: MANUAL DIFF FLAG NO
[2024-12-19 16:30] LABS: Appearance Urine Clear; Color Urine Dark Yellow; Glucose Urine UA Negative (Negative); Leukocyte Esterase Urine Small (1+) (Negative); Nitrite Urine Positive (Negative); Specific Gravity - Urine 1.025 (1.005-1.025); UMIC TRIGGER UACC YES; Urine Blood Negative (Negative); Urine Ketones Negative (Negative); Urine Protein Trace mg/dL (Neg-Trace)
[2024-12-19 16:41] LABS: Basophils Absolute Auto 0.1 X10*3/uL (0.0-0.2); Basophils Percent Auto 1.2 % (0-2); Eosinophils Absolute Auto 0.1 X10*3/uL (0.0-0.4); Eosinophils Percent Auto 0.7 % (0-4); Hematocrit 34.4 % (42.0-52.0); Hemoglobin 11.2 g/dl (14.0-18.0); Imm Gran Abs Auto 0.04 X10*3/uL (0.00-0.03); Imm Gran Pct Auto 0.5 % (0.0-0.4); Lymphocytes Absolute Auto 1.3 X10*3/uL (1.2-4.9); Lymphocytes Percent Auto 15.6 % (20-40); Mean Corpuscular HGB Conc 32.6 g/dl (31.0-36.0); Mean Corpuscular Hemoglobin 31.8 pg (27.0-33.0); Mean Corpuscular Volume 97.7 fL (80.0-98.0); Mean Platelet Volume 9.3 fL (9.4-12.4); Monocytes Absolute Auto 0.8 X10*3/uL (0.1-1.2); Monocytes Percent Auto 9.5 % (2-11); Neutrophils Absolute Auto 5.9 x10*3/uL (2.0-8.3); Neutrophils Percent Auto 72.5 % (45-73); Platelet Count 350 X10*3/uL (160-400); Red Blood Count 3.52 X10*6/uL (4.60-5.80); Red Cell Distribution Width 14.6 % (11.0-16.0); White Blood Count 8.1 X10*3/uL (4.8-10.8)
[2024-12-19 16:49] LABS: Alanine Aminotransferase 27 U/L (0-40); Albumin Level 2.9 g/dL (3.5-5.0); Alkaline Phosphatase 85 U/L (39-117); Anion Gap 12 (12-20); Aspartate Amino Transferase 44 U/L (5-37); Bilirubin Total 0.5 mg/dL (0.0-1.0); Blood Urea Nitrogen 10 mg/dL (9-16); Calcium 8.1 mg/dL (8.4-10.2); Carbon Dioxide 24 mmol/L (22-29); Chloride 107 mmol/L (96-108); Cholesterol 103 mg/dL (<200); Estimated Glomerular Filt Rate > 60; Glucose Fasting 110 mg/dL (60-99); HDL Cholesterol 34 mg/dL (>40); LDL Cholesterol Calculated 34 mg/dL (<100); Potassium 3.9 mmol/L (3.3-5.1); Sodium 139 mmol/L (135-145); Total Protein 5.7 g/dL (6.5-8.0); Triglycerides 177 mg/dL (<150)
[2024-12-19 16:51] LABS: Bacteria Urine None Seen (None Seen); Hyaline Casts Urine 0-2 /LPF (0-2); Squamous Epithelial Cell Urine 0-2 /HPF (0-2); UACC Culture Trigger YES; WBC Urine 0-5 /HPF (0-5)
[2024-12-19 17:09] LABS: TSH reflex Free T4 8.22 uIU/mL (0.32-4.0)
[2024-12-19 18:09] LABS: Free T4 (Free Thyroxine) 1.03 ng/dL (0.71-1.85)
== END 2024-12-19 12:41 | disposition home or self-care (01) ==
LOC: HO.HMGCLDS 12:40
PROVIDERS: PCP Nurse Practitioner Family; Visit Provider Nurse Practitioner Family
DX: I10 Essential (primary) hypertension (principal); R82.90 Unspecified abnormal findings in urine
CPT/HCPCS: 36415; 80053; 80061; 81001; 84439; 84443; 85025; 87086

== ENCOUNTER 2025-01-10 09:34 | Outpatient (AMB) | payer MEDICARE, SELFPAY ==
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
[2025-01-10 09:47] VITALS: BP 142/80; PULSE 79
== END 2025-01-10 10:17 | disposition home or self-care (01) ==
LOC: HO.HCS 09:35
PROVIDERS: PCP Nurse Practitioner Family; Visit Provider Nurse Practitioner Family
DX: I48.0 Paroxysmal atrial fibrillation (principal); I42.9 Cardiomyopathy, unspecified; I25.10 Atherosclerotic heart disease of native coronary artery without angina pectoris
CPT/HCPCS: 93010; 99214; G2211

== ENCOUNTER → 2025-01-10 09:34 | Outpatient (BNVA) | payer SELFPAY | PROVIDERS: PCP Nurse Practitioner Family; Visit Provider Nurse Practitioner Family | DX: I48.0 Paroxysmal atrial fibrillation (principal); I42.9 Cardiomyopathy, unspecified; I25.10 Atherosclerotic heart disease of native coronary artery without angina pectoris; Z79.01 Long term (current) use of anticoagulants; Z79.899 Other long term (current) drug therapy | CPT/HCPCS: 93005; 99212 ==

== ENCOUNTER 2025-01-23 08:13 | Outpatient (AMB) | payer MEDICARE, SELFPAY ==
--- NOTE | 2025-01-23 08:28 | MHC.OFFWIV ---
Intake Vital Signs 01/23/25 08:31 BMI Reason not done Patient refused/unable BP 130/84 Blood Pressure Location Lt brachial Position Sitting Intake Visit Reasons: EP- Possible UTI Intake Note: Patient here for dark urine color that has been present for a couple of days. Patient Tobacco Use Status: Current everyday Tobacco user Allergies bee pollen [BEE STINGS] Allergy (Severe, Verified 01/23/25 08:30) SWELLING Do you need a note to return to daycare/school/sports/work: No HPI HPI Comments History of Present Illness Details 64 y/o Male patient who presents to the walk in clinic with c/o Dark Colored urine for few days now. [facility] Medical History (Updated 01/23/25 @ 09:11 by Sole Bro NP) Dark brown-colored urine History of alcohol abuse History of above-knee amputation of both lower extremities PAD (peripheral artery disease) Coronary artery disease Heart failure with reduced ejection fraction Ischemic cardiomyopathy Paroxysmal A-fib Apical mural thrombus HTN (hypertension) History of sepsis Anemia COPD (chronic obstructive pulmonary disease) Nicotine dependence, cigarettes, uncomplicated Physical deconditioning Surgical History History of left inguinal hernia repair History of colonoscopy History of left above knee amputation History of right above knee amputation H/O skin graft History of cardiac cath H/O left knee surgery Family History Mother Hx of CABG Social History Household Members: None Household Members Other:: none Housing: Apartment Housing Other:: Living with sister. Do you presently have visiting nurse or other home services: Yes Unable to assess alcohol history related to: Unknown Alcohol intake: never Comment: Bilateral AKA Patient Tobacco Use Status: Current everyday Tobacco user Tobacco use type: Cigar Cigarette Packs Per Day: 0.5 Cigarettes Per Day: 10.0 Years Smoked: 25 e-Cigarette/Vaping Use: Never Used Second Hand Smoke Exposure: Yes Substance Use Type: Marijuana Advance Directives Date on File: 11/25/22 service: No Current occupational status: retired Cognitive needs: No Hearing needs: No Vision needs: No Review of Systems Const All systems reviewed & are unremarkable except as noted in HPI and below Physical Exam Vital Signs: Last Vital Signs BP 130/84 01/23/25 08:31 Const General: no acute distress Orientation/consciousness: patient oriented x3 Limitations: wheelchair Neuro General: patient oriented x3 Results AMB Urinalysis, Automated UA Leukoctes 0 Carlos Alberto/uL Last Edit by BRENNON Siegel on 01/23/25 09:32 UA Nitrite Negative Last Edit by Candi Graves [facility] on 01/23/25 09:32 UA Urobilinogen 0.2 mg/dL Last Edit by Candi Graves [facility] on 01/23/25 09:32 UA Protein 0 mg/dL Last Edit by Candi Graves [facility] on 01/23/25 09:32 UA pH 6.0 Last Edit by Candi Graves [facility] on 01/23/25 09:32 UA Blood 0 Eagle/uL Last Edit by Candi Graves [facility] on 01/23/25 09:32 UA Specific [place] 1.015 Last Edit by Candi Graves [facility] on 01/23/25 09:32 UA Ketone Negative Last Edit by Candi Graves [facility] on 01/23/25 09:32 UA Bilirubin 0 mg/dL Last Edit by Candi Graves [facility] on 01/23/25 09:32 UA Glucose 0 mg/dL Last Edit by Candi Graves [facility] on 01/23/25 09:32 Results Reviewed Results Reviewed: Laboratory Last Values Urine pH (Auto) 6.0 01/23/25 09:31 Specific [place] (Auto) 1.015 01/23/25 09:31 Urine Protein (Auto) 0 mg/dL 01/23/25 09:31 Glucose (UA)(Auto) 0 mg/dL 01/23/25 09:31 Urine Ketones (Auto) Negative 01/23/25 09:31 Urine Blood (Auto) 0 Eagle/uL 01/23/25 09:31 Urine Nitrite (Auto) Negative 01/23/25 09:31 Urine Bilirubin (Auto) 0 mg/dL 01/23/25 09:31 Urine Urobilinogen (Auto) 0.2 mg/dL 01/23/25 09:31 Leukocyte Esterase (Auto) 0 Carlos Alberto/uL 01/23/25 09:31 Assessment & Plan Assessment & Plan (1) Dark brown-colored urine: Code(s): R82.998 - Other abnormal findings in urine Plan: Rapid Urinalysis negative. Orders: Orders AMB Urinalysis Automated Today Z13.9 - Encounter for screening, unspecified Coding Level of Care Code Est Pt Level 4 (53562) Diagnoses Dark brown-colored urine R82.998 Time Spent (min) 20
[2025-01-23 08:31] VITALS: BP 130/84
== END 2025-01-23 09:25 | disposition home or self-care (01) ==
PROVIDERS: PCP Nurse Practitioner Family; Visit Provider Nurse Practitioner Family
DX: R82.998 Other abnormal findings in urine (principal); Z13.9 Encounter for screening, unspecified

== ENCOUNTER → 2025-01-23 08:13 | Outpatient (BNVA) | payer MEDICARE, SELFPAY | PROVIDERS: PCP Nurse Practitioner Family; Visit Provider Nurse Practitioner Family | DX: R82.998 Other abnormal findings in urine (principal) | CPT/HCPCS: 81003; 99212 ==

== ENCOUNTER 2025-03-13 10:54 | Outpatient (AMB) | payer MEDICARE, SELFPAY ==
[2025-03-13 10:59] VITALS: BP 128/82; PULSE 56; TEMP 36.8; O2SAT 99
--- NOTE | 2025-03-13 10:59 | MHC.PC.OV ---
Vital Signs 03/13/25 10:59 Height 4 ft 7 in BMI Reason not done Patient refused/unable BP 128/82 Blood Pressure Location Rt brachial Position Sitting Pulse 56 Pulse Source Pulse Oximeter Temp 98.2 F Temp Source Oral Pulse Oximetry (%) 99 Oxygen Delivery Method Room Air Intake Visit Reasons: F/U Allergies bee pollen (BEE STINGS) Allergy (Severe, Verified 03/13/25 11:03) SWELLING Tobacco use date assessed: 03/13/25 Fall risk assessment: No Falls in past year Last assessed Fall Risk: 03/13/25 Dental Screening Dental Screen Date: 03/13/25 Did you have a dental visit in the last 12 months?: Yes Did you have a dental problem in the last 6 months where you did not have access to dental care?: No Was dental information given to patient?: Patient has dentist HPI F/U HPI Details Chief Complaint The patient presents for follow-up on hypothyroidism and preventative care measures. History of Present Illness The patient is a 64-year-old male presenting with follow-up for hypothyroidism management and preventative care. GORDON catherine (in electronic wheelchair) The patient has a history of hypothyroidism with previously elevated Thyroid Stimulating Hormone (TSH) levels. Levothyroxine dosage was adjusted during the last visit, and repeat laboratory tests are planned to monitor TSH levels. The patient reports a reduction in alcohol consumption, which has led to a downward trend in liver enzyme levels. He occasionally consumes Oswaldo[employer] Hard Lemonade or a single beer. The patient continues to smoke and reports wheezing. A low-dose CT scan was previously ordered, but the patient did not receive a call for the appointment. Hx of phantom pain, on gabapentin, will increase dose slightly. seeing derm for skin lesions/ skin cancer Social History - Alcohol use: Reduced consumption, occasional Oswaldo[employer] Hard Lemonade or single beer - Smoking: Continues to smoke, reports wheezing Health Maintenance - Colon cancer screening: Cologuard test due, order to be placed - Low-dose CT scan: Referral previously made, follow-up required as patient was not contacted Review of Systems - General: Reports feeling well overall - Respiratory: Denies chest pain, denies dyspnea, reports wheezing Physical Exam General: Cooperative, healthy appearing, comfortable, no acute distress and well developed, in electronic wheelchair Orientation: Patient oriented x3 Limitations: No limitations Head: Normal to inspection Ears: Hearing grossly normal bilaterally Nose: Normal external nose present Face and sinus: Normal facial exam Eyes: Appearance normal, both eyes and all related structures Neck: Normal visual inspection and Yes full ROM Respiratory: Scattered wheezes throughout on auscultation Cardiovascular: Regular rate and rhythm. Normal S1 and S2. No carotid bruits noted GI: Normal to inspection. Soft to palpation and nontender Skin: Intact, slightly reddish to sacral, coccyx, buttocks, no open lesions noted Neuro: Patient oriented x3 Extremities: Normal to inspection Results Plan The patient's hypothyroidism will be monitored with repeat TSH levels to assess the effectiveness of the adjusted levothyroxine dosage. A PSA test will be reordered as it was not completed previously. For preventative care, a Cologuard test will be ordered to screen for colon cancer, as it is due to soon. The patient will be followed up regarding the low-dose CT scan referral to ensure it is completed, given the patient's ongoing smoking and reported wheezing. Patient was informed and verbally consented to the use of an ambient scribe for clinic note documentation during this visit. Discussion Notes I discussed with the patient the importance of monitoring his hypothyroidism with repeat TSH levels and the need to reorder the PSA test. We also talked about the necessity of completing the Cologuard test for colon cancer screening and ensuring the low-dose CT scan is conducted due to his smoking history and wheezing. Patient Instructions - Continue taking levothyroxine as prescribed and follow up with repeat TSH testing. - Complete the Cologuard test for colon cancer screening. - Follow up on the low-dose CT scan appointment to ensure it is scheduled. [facility] Medical History Dark brown-colored urine History of alcohol abuse History of above-knee amputation of both lower extremities PAD (peripheral artery disease) Coronary artery disease Heart failure with reduced ejection fraction Ischemic cardiomyopathy Paroxysmal A-fib Apical mural thrombus HTN (hypertension) History of sepsis Anemia COPD (chronic obstructive pulmonary disease) Nicotine dependence, cigarettes, uncomplicated Physical deconditioning Surgical History History of left inguinal hernia repair History of colonoscopy History of left above knee amputation History of right above knee amputation H/O skin graft History of cardiac cath H/O left knee surgery Family History (Reviewed 03/13/25 @ 11:[address] [facility] [place]) Mother Hx of CABG Social History (Reviewed 03/13/25 @ 11:[address] [facility] [place]) Household Members: None Household Members Other:: none Housing: Apartment Housing Other:: Living with sister. Do you presently have visiting nurse or other home services: Yes Unable to assess alcohol history related to: Unknown Alcohol intake: never Comment: Bilateral AKA Patient Tobacco Use Status: Current everyday Tobacco user Tobacco use type: Cigar Cigarette Packs Per Day: 0.5 Cigarettes Per Day: 10.0 Years Smoked: 25 e-Cigarette/Vaping Use: Never Used Second Hand Smoke Exposure: Yes Substance Use Type: Marijuana Advance Directives Date on File: 11/25/22 service: No Current occupational status: retired Cognitive needs: No Hearing needs: No Vision needs: No Questionnaire PHQ-9 Over the last 2 weeks, how often have you been bothered by any of the following problems? 1. Little interest or pleasure in doing things: not at all 2. Feeling down, depressed, or hopeless: not at all 3. Trouble falling or staying asleep, or sleeping too much: several days 4. Feeling tired or having little energy: several days 5. Poor appetite or overeating: not at all 6. Feeling bad about yourself - or that you are a failure or have let yourself or your family down: several days 7. Trouble concentrating on things, such as reading the newspaper or watching television: not at all 8. Moving or speaking so slowly that other people could have noticed. Or the opposite - being so fidgety or restless that you have been moving around a lot more than usual: not at all 9. Thoughts that you would be better off or of hurting yourself in some way: not at all Total score: 3 Depression Screening Interpretation: Negative Depression Screening Done: Yes 73119 - PHQ-9 Billing: Yes Source: Developed by Drs. Brad Meier, July Howard, Darren Parrish and colleagues, with an educational jelly from [employer]. Thrive Questionnaire Date Thrive assessed: 03/13/25 I am a: Patient What is your living situation today?: I have a steady place to live Within the past 12 months, did the food you bought not last and you didn't have the money to get more?: Never true Within the past 12 months, did you worry whether your food would run out before you got money to buy more?: Never true Do you have trouble getting transportation to medical appointments?: Yes Do you have trouble paying your heating and electricity bill?: No Do you have trouble taking care of your child, family member or friend?: I choose not to answer this question Do you have trouble with day-to-day activities such as bathing, preparing meals, shopping, managing finances, etc.?: No Are you interested in more education?: No Please select the resources that you would like help with: Transportation Currently or been in a relationship where the following occur: I choose not to answer THRIVE Score: 1 AUDIT C Alcohol Use Questionnaire (AUDIT-C) 1. How often do you have a drink containing alcohol?: Monthly or less 2. How many drinks containing alcohol do you have on a typical day when you are drinking?: 1 or 2 3. How often do you have six or more drinks on one occasion?: Never Total Score: 1 JERRY-7 AMB Questionnaire JERRY-7 Date JERRY - 7 assessed: 03/13/25 Feeling nervous, anxious, or on edge: 0 = Not at all Not being able to stop or control worryin = Several days Worrying too much about different things: 1 = Several days Trouble relaxin = Not at all Being so restless that it is hard to sit still: 1 = Several days Becoming easily annoyed or irritable: 0 = Not at all Feeling afraid as if something awful might happen: 0 = Not at all Total JERRY-7 score (0-4 normal; 5-9 mild; 10-14 moderate; 15-21 severe): 3 Source: Developed by Drs. Brad Meier, July Howard, Darren Parrish and colleagues, with an educational jelly from [employer]. JERRY-7 Assessment Billing JERRY-7 Assessment Tool: JERRY-7 Assessment 25277 Physical exam (Primary Care) Vital Signs: Last Vital Signs Temp 98.2 F 03/13/25 10:59 Pulse 56 03/13/25 10:59 BP 128/82 03/13/25 10:59 Pulse Ox 99 03/13/25 10:59 Oxygen Delivery Method Room Air 03/13/25 10:59 Tobacco/Smoking Status: Tobacco use Status Tobacco use date assessed 03/13/25 03/13/25 11:05 Patient Tobacco Use Status Current everyday Tobacco 03/13/25 11:05 Tobacco use type Cigar 03/13/25 11:05 e-Cigarette/Vaping Use Never Used 03/13/25 11:05 PHQ-9: PHQ-9 Score PHQ-9: Total score 3 03/13/25 11:05 Depression Screening Interpretation: Negative Thrive Assessment: Date of Thrive Assessment Date Thrive assessed 03/13/25 03/13/25 11:05 Currently or been in a relationship where the following occur: I choose not to answer Coding Level of Care Code Est Pt Level 3 (31465) Diagnoses Elevated TSH R79.89 Screening PSA (prostate specific antigen) Z12.5 Additional Codes JERRY-7 Assessment Billing - JERRY-7 Assessment Tool: JERRY-7 Assessment 36099 ([id number]) PHQ-9 - 65770 - PHQ-9 Billing: Yes ([id number]) Assessment & Plan Assessment & Plan (1) Elevated TSH: Code(s): R79.89 - Other specified abnormal findings of blood chemistry Category: Medical (2) Screening PSA (prostate specific antigen): Code(s): Z12.5 - Encounter for screening for malignant neoplasm of prostate Category: Medical Plan . Orders: Orders Prostate Specific Antigen Scr Today R79.89 - Other specified abnormal findings of blood chemistry, Z12.5 - Encounter for screening for malignant neoplasm of prostate TSH reflex Free T4 Today R79.89 - Other specified abnormal findings of blood chemistry, Z12.5 - Encounter for screening for malignant neoplasm of prostate Referrals Cologuard Test Z12.11 - Encounter for screening for malignant neoplasm of colon, Z12.12 - Encounter for screening for malignant neoplasm of rectum Medications: Changed From gabapentin 100 mg PO TID 30 days 90 caps 1RF To gabapentin 300 mg PO BID 60 caps 1RF 30 days
== END 2025-03-13 11:35 | disposition home or self-care (01) ==
LOC: HO.HMCC 10:55
PROVIDERS: PCP Nurse Practitioner Family; Visit Provider Nurse Practitioner Family
DX: R79.89 Other specified abnormal findings of blood chemistry (principal); Z12.5 Encounter for screening for malignant neoplasm of prostate

== ENCOUNTER → 2025-03-13 10:54 | Outpatient (BNVA) | payer MEDICARE, SELFPAY | PROVIDERS: PCP Nurse Practitioner Family; Visit Provider Nurse Practitioner Family | DX: I10 Essential (primary) hypertension (principal); E03.9 Hypothyroidism, unspecified; F17.290 Nicotine dependence, other tobacco product, uncomplicated; R79.89 Other specified abnormal findings of blood chemistry; Z89.612 Acquired absence of left leg above knee; Z89.611 Acquired absence of right leg above knee | CPT/HCPCS: 96127; 99212 ==

== ENCOUNTER 2025-05-09 | Outpatient (REF) | payer MEDICARE, SELFPAY ==
--- OUTSIDE RECORDS SUMMARY | 2025-05-26 11:48 | XMS_ITS | Encounter Summary ---
Author Organization [facility] Address [address] [facility] [address] [place] [address] Phone Care Team Providers Care Offal Icer Poultry Name Role Phone Antonino Ramsey MANAGER ENGLISH Primary Care Provider + Encounter Details Date Type Department Care Team (Late st Contact Info) Description 09/17/2022 Procedure [place] [facility] [place] [address] [place] [phone] Social History Tobacco Use Types Packs/Day Years Used Date Smoking Tobacco: Never Assessed Intimate Partner Violence Answer Date R ecorded Are you denied basic needs s uch as food, clothing, or medical care? No 09/16/2022 In the past 12 months have y ou been in a relationship with a person who hurts, threatens, or tries to control you? No 09/16/2022 Are you denied basic needs s uch as food, clothing, or medical care? No 09/16/2022 In the past 12 months have y ou been in a relationship with a person who hurts, threatens, or tries to control you? No 09/16/2022 Sex and Gender Information Value Date Recorded Sex Assigned at Not on file Legal Sex Male 9:55 AM EST Gender Identity Not on file Sexual Orientation Not on file documented as of this encounter Plan of Treatment Not on file documented as of this encounter Visit Diagnoses Not on filedocumented in this encounter Additional Health Concerns Infection Onset Date Last Indicated Resolved Time CoV-Exposed Comment:Removed via automated background process based on negative test result 09/30/2022 09/30/2022 10/06/2022 12:02 AM EST VRE 10/18/2022 10/18/2022 10/18/2023 1:22 AM EST documented as of this encounter Care Teams Offal Icer Poultry Relationship Specialty Start Date End Date Antonino Ramsey NP [facility] [place] [address] PCP - General Nurse Practitioner 10/10/22 documented as of this encounter Additional Source Comments The information contained in this document represents components of the legal health record. It is not the complete legal health record.[facility]
--- OUTSIDE RECORDS SUMMARY | 2025-05-26 11:48 | XMS_ITS | Encounter Summary ---
Author Organization [facility] Address [address] [facility] [address] [place] [address] Phone Care Team Providers Care Loan Servicing Representative Name Role Phone Antonino Ramsey MORNING SHOW HOST Primary Care Provider + Encounter Details Date Type Department Care Team (Late st Contact Info) Description 09/20/2022 Procedure Pass [facility] [place] [facility] [address] [place] [phone] Social History Tobacco Use Types Packs/Day Years [...] documented as of this encounter Care Teams Loan Servicing Representative Relationship Specialty Start Date End Date Antonino Ramsey NP [facility] [place] [address] PCP - General Nurse Practitioner 10/10/22 documented as of this encounter Additional Source Comments The information contained in this document represents components of the legal health record. It is not the complete legal health record.[facility]
--- OUTSIDE RECORDS SUMMARY | 2025-05-26 11:48 | XMS_ITS | Encounter Summary ---
Author Organization [facility] Address [address] [facility] [address] [place] [address] Phone Care Team Providers Care Manager Of Product Name Role Phone Antonino Ramsey SOFTWARE DEVELOPMENT TEST ENGINEER Primary Care Provider + Encounter Details Date Type Department Care Team (Late st Contact Info) Description 09/26/2022 Procedure [place] [facility] [place] [place] [address] [place] [phone] Social History Tobacco Use Types Packs/Day Years [...] documented as of this encounter Care Teams Manager Of Product Relationship Specialty Start Date End Date Antonino Ramsey NP [facility] [place] [address] PCP - General Nurse Practitioner 10/10/22 documented as of this encounter Additional Source Comments The information contained in this document represents components of the legal health record. It is not the complete legal health record.[facility]
--- OUTSIDE RECORDS SUMMARY | 2025-05-26 11:48 | XMS_ITS | Clinical Summary ---
Author Organization [facility] Address [address] [place] [address] Phone Care Team Providers Care Detonator Maker Name Role Phone Antonino Ramsey FIELD MERCHANDISER Primary Care Provider + Allergies No known active allergies Medications ferrous sulfate 324 mg (65 mg [place] iron) TbEC Take 324 mg by mouth daily with breakfast. Active thiamine (VITAMIN B-1) 100 MG tablet Take 100 mg by mouth daily. Active digoxin (LANOXIN) 125 mcg tablet Take 125 mcg by mouth daily. Active sacubitriL-valsa rtan (ENTRESTO) 49-51 mg per tablet Take 1 tablet by mouth 2 (two) times a day. Active folic acid (FOLVITE) 1 MG tablet Take 1 mg by mouth daily. Active traZODone (DESYREL) 50 MG tablet Take 50 mg by mouth nightly at bedtime as needed for sleep. Active apixaban (ELIQUIS) 5 mg tablet Take 1 tablet (5 mg total) by mouth 2 (two) times a day. 3 Active atorvastatin (LIPITOR) 80 MG tablet Take 1 tablet (80 mg total) by mouth nightly at bedtime. 3 Active gabapentin (NEURONTIN) 400 MG capsule Take 1 capsule (400 mg total) by mouth every 8 (eight) hours. 3 Active omeprazole (PRILOSEC) 40 MG capsule Take 1 capsule (40 mg total) by mouth daily before breakfast. 3 Active acetaminophen (TYLENOL) 325 mg tablet Take 2 tablets (650 mg total) by mouth every 6 (six) hours as needed. 0 3 Active aspirin 81 mg chewable tablet Take 1 tablet (81 mg total) by mouth daily. 3 Active bisacodyl (DULCOLAX) [address] 1 suppository (10 mg total) rectally daily as needed. 3 Active cyclobenzaprine (FLEXERIL) 5 MG tablet Take 1 tablet (5 mg total) by mouth 3 (three) times a day as needed. 3 Active docusate sodium (COLACE) 100 MG capsule Take 1 capsule (100 mg total) by mouth 2 (two) times a day. 3 Active HYDROmorphone (DILAUDID) 2 MG tablet Take 1-2 tablets (2-4 mg total) by mouth every 4 (four) hours as needed. Partial fill ok 0 3 Active metoprolol tartrate (LOPRESSOR) 25 MG tablet Take 1 tablet (25 mg total) by mouth every 6 (six) hours. 3 Active midodrine (PROAMATINE) 5 MG tablet Take 1 tablet (5 mg total) by mouth every 8 (eight) hours. 3 Active ivzorasa-zdi-fsv leonila fumarate 15 mg iron Tab Take 1 tablet by mouth daily. 3 Active mupirocin (BACTROBAN) 2 % ointment Apply topically daily. Apply to open areas daily as directed. 22 g 3 Active white petrolatum (AQUAPHOR) 41 % Oint Apply topically 2 (two) times a day. 3 Active QUEtiapine (SEROQUEL) 25 MG tablet Take 1 tablet (25 mg total) by mouth every 6 (six) hours as needed (As needed for burn dressing changes). 3 Active Active Problems Problem Noted Date Diagnosed Date History of open wound of lower extremity 022 Immunizations Immunization Administration Dates Next Due INFLUENZA, SPLIT VIRUS, TRIVALENT W/ PRESERVATIV E IM 07/26/2010 Influenza Quadrivalent Preservative Free IM 06/18 Pneumococcal polysaccharide PPSV23 07/26/2010 Td, unspecified formulation 09/18/2007 Tdap 03/22/2022 Social History Tobacco Use Types Packs/Day Years Used Date Smoking Tobacco: Never Assessed Education Answer Date Recorded Are you interested in more education? Not on henri e 01/14/2023 Are you concerned about learning? Not on file 01/14/2023 No 01/14/2023 No 01/14/2023 Digital Access Answer Date Recorded No 02/14/2023 No 02/14/2023 Reliable internet access at home? Not on file 02/14/2023 Device with a working camera? Not on file Intimate Partner Violence Answer Date R ecorded [...] on file Sexual Orientation Not on file Last Filed Vital Signs Vital Sign Reading Time Taken Comments Blood Pressure 86/59 10/21/2022 1:40 PM EST Pulse 85 10/21/2022 1:40 PM EST Temperature 35.9 C (96.6 F) 10/21/2022 11:42 AM EST Respiratory Rate 18 10/21/2022 11:42 AM EST Oxygen Saturation 96% 10/21/2022 1:40 PM EST Inhaled Oxygen Concentration - - Weight 73.5 kg (162 lb 0.6 oz) 10/20/2022 6:00 A M EST Height 170.2 cm (5' 7 ) 09/17/2022 3:09 AM EST Body Mass Index 25.38 09/17/2022 3:09 AM EST Plan of Treatment Health Maintenance Due Date Last Done Comments DEPRESSION SCREENING 1971 SMOKING Hx and SMOKELESS TOBACCO SCREENING 11/26/1972 COLOGUARD 11/26/2004 COLONOSCOPY 11/26/2004 COLORECTAL CANCER SCREENING 11/26/2004 FIT TEST 11/26/2004 FOBT 11/26/2004 SIGMOIDOSCOPY 11/26/2004 VIRTUAL COLONOSCOPY 11/26/2004 ZOSTER VACCINES (1 of 2) 11/26/2009 PNEUMOCOCCAL VACCINES (50+ years) (2 of 2 - PCV) 07/26/2011 07/26/2010 CREATININE LEVEL 10/21/2023 10/21/2022, 10/2022, 10/19/2022, Additional history exists POTASSIUM LEVEL 10/21/2023 10/21/2022, 02/0 10/2022, 10/19/2022, Additional history exists INFLUENZA VACCINE (#1) 2025 07/02/2022, 2009 COVID-19 VACCINE (1 - season) 2025 SCREENING FOR DIABETES 10/21/2025 10/21/2022 LIPID PANEL 04/08/2029 04/08/2024 Adult Td,Tdap Booster 03/22/2032 03/22/2022, 008 RSV VACCINE (1 - 1-dose 75+ series) 11/26/2034 HEPATITIS C SCREENING Completed 10/10/2022 HIV ONE-TIME SCREENING (18-65 YEARS) Completed 10/10/2022 HEPATITIS A VACCINES Aged Out No long er eligible based on patient's age to complete this topic HIB VACCINES Aged Out No longer eligi ble based on patient's age to complete this topic MENINGOCOCCAL VACCINES (ACWY) Aged Out No longer eligible based on patient's age to complete this topic MENINGOCOCCAL VACCINES (B) Aged Out N o longer eligible based on patient's age to complete this topic Medical Devices Not on file Procedures Procedure Name Priority Date/Time Associated Diagnosis Comments BASIC METABOLIC PANEL Routine 10/21/2022 5:30 AM EST HEPATITIS C VIRAL LOAD (PCR) Routine 10/10/2022 6:40 AM EST from Last 3 Months or Most Recently Relevant to Health Maintenance Results * (ABNORMAL) Basic metabolic panel (10/21/2022 5:30 AM EST) SODIUM 133(L) 135 - 145 mmol/L [facility] POTASSIUM 4.7 3.4 - 5.0 mmol/L [facility] CHLORIDE 96(L) 98 - 108 mmol/L [facility] CO2 27 23 - 32 mmol/L [facility] BUN 14 8 - 25 mg/dL [facility] CREATININE 0.53(L) 0.60 - 1.50 mg/dL [facility] GLUCOSE 114(H) 70 - 110 mg/dL [facility] CALCIUM 9.8 8.5 - 10.5 mg/dL [facility] EGFR 113 >59 mL/min/1. 73m2 [facility] Comment:Estimated glomerular filtration rate calculated using the CKD-EPI refit equation. ANION GAP 10 3 - 17 mmol/L [facility] Blood 10/21/2022 5:30 AM EST 10/21/2022 5:49 AM EST Result [facility] Chapin Hardin MD LAB BLOOD ORDERABLES Fin al Result Performing Organization Address [facility] Co de Phone Number [address] [address] * Hepatitis C viral load (PCR) (10/10/2022 6:40 AM EST) HCV RNA PCR Not Detected IU/mL [facility] Comment: (NOTE) Assay Range: 15-100,000,000 IU/ml In rare instances, there might be a 1.0 - 1.5 log increase measured viral load observed in individuals with genotype 3a and 4. Please refer any questions to the [facility] at extension 5-2013. This is a quantitative assay utilizing real-time PCR technology. Results of this test may be clinically useful in monitoring a patient's clinical course or response to antiviral therapy but should not be used to make the diagnosis of HCV infection. A test result of less than the lower limit of quantification (LLoQ)(<15 IU/mL) should be interpreted as HCV RNA not quantifiable but does not exclude the diagnosis of HCV infection. Blood (Blood) 10/10/2022 6:4 0 AM EST 10/10/2022 6:59 AM EST Chapin Hardin MD NON CULTURE MICROBIOLOGY Final Result Performing Organization Address City/[facility]/ZIP Co de Phone Number [address] [address] from Last 3 Months or Most Recently Relevant to Health Maintenance [place] [facility] [place] [facility] [place]: [address] [address] [facility] [place] [facility] [place] Address: [address] Member Subscriber Plan / Payer (Ef fective 2021-Present) Name:Brad Gordon Relation to Subscriber:Self Name:Brad Gordon Payer ID:Not on file Type:O Address: [place] [id number] [facility] Advance Directives For more information, please contact: [phone] (9AM - 5PM [facility], Monday-Monday) Documents on File Type Date Recorded Patient Mold Making Plastics Sheets Supervisor Expl anation Healthcare Proxy 09/20/2022 10:18 AM * Full Code (Latest Code Status on File) Date Activated Date Inactivated Comments 09/16/2022 5:45 PM Question Answer Comments Code Status Confirmed With: Patient Care Teams Detonator Maker Relationship Specialty Start Date End Date Antonino Ramsey NP [facility] [place] [address] PCP - General Nurse Practitioner 10/10/22 Additional Source Comments The information contained in this document represents components of the legal health record. It is not the complete legal health record.[facility]
--- OUTSIDE RECORDS SUMMARY | 2025-05-26 11:48 | XMS_ITS | Encounter Summary ---
Author Organization [facility] Address [address] [place] [address] Phone Care Team Providers Care Clothes Drier Repairer Name Role Phone Antonino Ramsey PUNCH PRESS SETTER Primary Care Provider + Encounter Details Date Type Department Care Team (Late st Contact Info) Description 09/17/2022 Procedure Pass [facility], [address] [facility] [place] [address] Social History Tobacco Use Types Packs/Day Years [...] documented as of this encounter Care Teams Clothes Drier Repairer Relationship Specialty Start Date End Date Antonino Ramsey NP [facility] [address] PCP - General Nurse Practitioner 10/10/22 documented as of this encounter Additional Source Comments The information contained in this document represents components of the legal health record. It is not the complete legal health record.[facility]
--- OUTSIDE RECORDS SUMMARY | 2025-05-26 11:48 | XMS_ITS | Encounter Summary ---
Author Organization [facility] Address [address] [place] [address] Phone Care Team Providers Care College Teacher Name Role Phone Antonino Ramsey PIPE ORGAN TECHNICIAN Primary Care Provider + Encounter Details Date Type Department Care Team (Late st Contact Info) Description 09/20/2022 Procedure Pass [facility] [place] PER[facility]OPER[facility]IVE DEPT [address] [place] [phone] Social History Tobacco Use Types Packs/Day Years [...] documented as of this encounter Care Teams College Teacher Relationship Specialty Start Date End Date Antonino Ramsey NP [facility] [place] [address] PCP - General Nurse Practitioner 10/10/22 documented as of this encounter Additional Source Comments The information contained in this document represents components of the legal health record. It is not the complete legal health record.[facility]
--- OUTSIDE RECORDS SUMMARY | 2025-05-26 11:48 | XMS_ITS | Encounter Summary ---
Author Organization [facility] Address [address] [facility] [address] [place] [address] Phone Care Team Providers Care Movie Producer Name Role Phone Antonino Ramsey DURAL MECHANIC Primary Care Provider + Encounter Details Date Type Department Care Team (Late st Contact Info) Description 09/17/2022 Procedure Pass [facility] PERIOPER[facility]IVE DEPT [address] [place] [phone] Social History Tobacco Use Types Packs/Day Years [...] documented as of this encounter Care Teams Movie Producer Relationship Specialty Start Date End Date Antonino Ramsey NP [facility] [place] [address] PCP - General Nurse Practitioner 10/10/22 documented as of this encounter Additional Source Comments The information contained in this document represents components of the legal health record. It is not the complete legal health record.[facility]
--- OUTSIDE RECORDS SUMMARY | 2025-05-26 11:48 | XMS_ITS | Encounter Summary ---
Author Organization [facility] Address [address] [facility] [address] [place] [address] Phone Care Team Providers Care Lining Inserter Name Role Phone Antonino Ramsey BACKUP ADMINISTRATIVE COORDINATOR Primary Care Provider + Encounter Details Date Type Department Care Team (Late st Contact Info) Description 09/16/2022 Procedure Pass [facility] [address] [place] [address] Social History Tobacco Use Types Packs/Day Years [...] on file documented as of this encounter Functional Status * Calculated C-SSRS Risk Score (Lifetime/Recent) Answer Date of Assessment Author No Risk Indicated 09/16/2022 4:00 PM Sylvia Quezada RN * [place] Suicide Severity Rating Scale (Screener/Recent Self-Report) Question Answer Date of Assessment Author 1. Wish to be (Past 1 Month) No 09/16/2022 4:00 PM Keely Zambrano RN 2. Non-Specific Active Suicidal Thoughts (Past 1 Month) No 09/16/2022 4:00 PM EST Keely Burnette RN 6. Suicidal Behavior (Lifetime) No 09/16/2022 4:00 PM EST Keely Burnette RN documented as of this encounter Plan of [...] documented as of this encounter Care Teams Lining Inserter Relationship Specialty Start Date End Date Antonino Ramsey NP [facility] [place] [address] PCP - General Nurse Practitioner 10/10/22 documented as of this encounter Additional Source Comments The information contained in this document represents components of the legal health record. It is not the complete legal health record.[facility]
== END 2025-05-09 00:01 | disposition home or self-care (01) ==
LOC: CF
PROVIDERS: PCP Nurse Practitioner Family; Visit Provider Physician Assistant Medical
DX: F17.210 Nicotine dependence, cigarettes, uncomplicated (principal)
CPT/HCPCS: G0296

== ENCOUNTER 2025-06-06 11:46 | Outpatient (REF) | payer MEDICARE, SELFPAY ==
--- NOTE | ~2025-06-06 | CT_ITS ---
EXAMINATION: CT LOW-DOSE SCREENING CHEST WITHOUT CONTRAST CLINICAL INFORMATION: 64-year-old male, current smoker, 34 pack years, lung cancer screening. COMPARISON: 11/18/2022 TECHNIQUE: Multidetector volumetric CT imaging of the chest is performed on a Siemens SOMATOM Definition scanner without contrast using low dose technique. Additional 2D coronal and sagittal reformatted images and axial 3D maximum intensity projection (MIP) images are generated on the CT workstation. This CT examination was performed using dose optimization techniques as appropriate, variously including the following: *Automated exposure control *Adjustment of mA and/or kV according to patient size (this includes techniques or standardized protocols for targeted exams where dose is matched to indication/reason for exam; i.e. extremities or head) *Use of iterative reconstruction technique FINDINGS: PULMONARY NODULES: There are a few tiny scattered calcified granulomata, unchanged. 4 mm subpleural nodule left upper lobe posteriorly, unchanged (series 6, image 31). 6 mm groundglass nodule right upper lobe laterally, stable and unchanged (series 6, image 50). No solid component. 4 mm subpleural nodule anterior left upper lobe, unchanged (series 6, image 44). 7 mm mixed groundglass and solid nodule (solid component 2 mm) superior segment left lower lobe, stable and unchanged (series 6, image 75). LUNGS: Mild centrilobular emphysema. Mild diffuse thickening of the small airways in keeping with chronic bronchitis. Stable linear scarring in the anterior right upper lobe. No effusions or pneumothorax. Central airways are patent. MEDIASTINUM: Normal thyroid. No mediastinal mass or lymphadenopathy. Ectatic ascending aorta at 4.0 cm diameter. This is stable. Aorta otherwise normal in caliber with mild to moderate atheromatous calcification. Main pulmonary artery is mildly prominent. Esophagus is normal. CORONARY ARTERY CALCIFICATION: Heavy. CHEST WALL/AXILLA: There is no mass or lymphadenopathy. UPPER ABDOMEN: Imaged upper abdominal contents are grossly normal allowing for low-dose technique and no contrast. There is heavy calcification of the abdominal aorta and its branches. OSSEOUS STRUCTURES: No suspicious lytic or blastic bone lesions. There are healed right rib fractures. CT/CT lung screening IMPRESSION: 1. A few scattered pulmonary nodules which are stable and unchanged from the prior exam. No new or enlarging pulmonary nodule. 2. Mild centrilobular emphysema. 3. Diffuse mild thickening of the small airways, in keeping with chronic bronchitis. 4. Borderline aneurysmal dilatation of the ascending aorta at 4.0 cm diameter, unchanged. 5. Heavy coronary artery calcification. ASSESSMENT: 1. Lung-RADS Category 2: Benign appearance or behavior of nodules. 2. Lung-RADS Category S: None. RECOMMENDATION: Continued routine annual low-dose CT lung screening in 1 year is recommended. An order for CT CHEST LOW DOSE CANCER SCREENING ([id number]) can be placed. Electronically signed by: Toby Leblanc MD 06/06/2025 01:23 PM EDT
--- OUTSIDE RECORDS SUMMARY | 2025-06-06 12:19 | XMS_ITS | Encounter Summary ---
Author Organization [facility] Address [address] [facility] [address] [address] [place] [address] Phone Care Team Providers Care Door Closer Name Role Phone Antonino Ramsey FOUNTAIN CLERK Primary Care Provider + Encounter Details Date Type Department Care Team (Late st Contact Info) Description 09/16/2022 Procedure Pass [facility] [address] [place] [address] Social History Tobacco Use Types Packs/Day Years [...] 09/16/2022 4:00 PM Sylvia Quezada RN * [place] Suicide Severity Rating Scale (Screener/Recent Self-Report) Question [...] documented as of this encounter Care Teams Door Closer Relationship Specialty Start Date End Date Antonino Ramsey NP [facility] [place] [address] PCP - General Nurse Practitioner 10/10/22 documented as of this encounter Additional Source Comments The information contained in this document represents components of the legal health record. It is not the complete legal health record.[facility]
--- OUTSIDE RECORDS SUMMARY | 2025-06-06 12:19 | XMS_ITS | Encounter Summary ---
Author Organization [facility] Address [address] [facility] [address] [place] [address] Phone Care Team Providers Care Executive Candidate Developer Name Role Phone Antonino Ramsey BICYCLE SUBASSEMBLER Primary Care Provider + Encounter Details Date Type Department Care Team (Late st Contact Info) Description 09/26/2022 Procedure Pass [facility]PT [address] [place] [phone] Social History Tobacco Use Types Packs/Day Years [...] documented as of this encounter Care Teams Executive Candidate Developer Relationship Specialty Start Date End Date Antonino Ramsey NP [facility] [place] [address] PCP - General Nurse Practitioner 10/10/22 documented as of this encounter Additional Source Comments The information contained in this document represents components of the legal health record. It is not the complete legal health record.[facility]
--- OUTSIDE RECORDS SUMMARY | 2025-06-06 12:19 | XMS_ITS | Encounter Summary ---
Author Organization [facility] Address [address] [facility] [address] [place] [address] Phone Care Team Providers Care Pediatric Clinical Dietician Name Role Phone Antonino Ramsey DIRECTOR TRAFFIC AND PLANNING Primary Care Provider + Encounter Details Date Type Department Care Team (Late st Contact Info) Description 09/17/2022 Procedure Pass [facility] [place] [place] [address] [place] [phone] Social History Tobacco Use Types Packs/Day Years [...] documented as of this encounter Care Teams Pediatric Clinical Dietician Relationship Specialty Start Date End Date Antonino Ramsey NP [facility] [place] [address] PCP - General Nurse Practitioner 10/10/22 documented as of this encounter Additional Source Comments The information contained in this document represents components of the legal health record. It is not the complete legal health record.[facility]
--- OUTSIDE RECORDS SUMMARY | 2025-06-06 12:19 | XMS_ITS | Encounter Summary ---
Author Organization [facility] Address [address] [place] [address] Phone Care Team Providers Care It Service Manager Name Role Phone Antonino Ramsey MAP AND CHART MOUNTER Primary Care Provider + Encounter Details Date Type Department Care Team (Late st Contact Info) Description 09/17/2022 Procedure Pass [facility], [address] [facility] [place] [address] Social History Tobacco Use Types Packs/Day Years [...] documented as of this encounter Care Teams It Service Manager Relationship Specialty Start Date End Date Antonino Ramsey NP [facility] [place] [address] PCP - General Nurse Practitioner 10/10/22 documented as of this encounter Additional Source Comments The information contained in this document represents components of the legal health record. It is not the complete legal health record.[facility]
--- OUTSIDE RECORDS SUMMARY | 2025-06-06 12:19 | XMS_ITS | Encounter Summary ---
Author Organization [facility] Address [address] [place] [address] Phone Care Team Providers Care Die Repair Name Role Phone Antonino Ramsey FRAME CHANGER Primary Care Provider + Encounter Details Date Type Department Care Team (Late st Contact Info) Description 09/20/2022 Procedure Pass [facility] [place] [place] [address] [place] [phone] Social History Tobacco Use Types Packs/Day Years [...] documented as of this encounter Care Teams Die Repair Relationship Specialty Start Date End Date Antonino Ramsey NP [facility] [place] [address] PCP - General Nurse Practitioner 10/10/22 documented as of this encounter Additional Source Comments The information contained in this document represents components of the legal health record. It is not the complete legal health record.[facility]
--- OUTSIDE RECORDS SUMMARY | 2025-06-06 12:19 | XMS_ITS | Encounter Summary ---
Author Organization [facility] Address [address] [facility] [address] [place] [address] Phone Care Team Providers Care Well Service Derrick Worker Name Role Phone Antonino Ramsey BRANCH OFFICE MANAGER Primary Care Provider + Encounter Details Date Type Department Care Team (Late st Contact Info) Description 09/17/2022 Procedure Pass [facility] PERIOPER[facility]IVE DEPT [address] [place] [phone] Social History Tobacco Use Types Packs/Day Years [...] documented as of this encounter Care Teams Well Service Derrick Worker Relationship Specialty Start Date End Date Antonino Ramsey NP [facility] [place] [address] PCP - General Nurse Practitioner 10/10/22 documented as of this encounter Additional Source Comments The information contained in this document represents components of the legal health record. It is not the complete legal health record.[facility]
--- OUTSIDE RECORDS SUMMARY | 2025-06-06 12:19 | XMS_ITS | Clinical Summary ---
Author Organization [facility] Address [address] [place] [address] Phone Care Team Providers Care Pooling Operator Name Role Phone Antonino Ramsey HEALTH PROGRAM ANALYST Primary Care Provider + Allergies No known active allergies Medications ferrous sulfate 324 mg (65 mg [place] iron) TbEC Take 324 mg by mouth [...] mouth every 8 (eight) hours. 3 Active uuugyegb-kif-cvc leonila fumarate 15 mg iron Tab Take [...] EST) SODIUM 133(L) 135 - 145 mmol/L [facility] POTASSIUM 4.7 3.4 - 5.0 mmol/L [facility] CHLORIDE 96(L) 98 - 108 mmol/L [facility] CO2 27 23 - 32 mmol/L [facility] BUN 14 8 - 25 mg/dL [facility] CREATININE 0.53(L) 0.60 - 1.50 mg/dL [facility] GLUCOSE 114(H) 70 - 110 mg/dL [facility] CALCIUM 9.8 8.5 - 10.5 mg/dL [facility] EGFR 113 >59 mL/min/1. 73m2 [facility] Comment:Estimated glomerular filtration rate calculated using the CKD-EPI refit equation. ANION GAP 10 3 - 17 mmol/L [facility] Blood 10/21/2022 5:30 AM EST 10/21/2022 5:49 AM EST Result [facility] Chapin Hardin MD LAB BLOOD ORDERABLES Fin al Result Performing Organization Address [facility] Co de Phone Number [address] [address] * Hepatitis C viral load (PCR) (10/10/2022 6:40 AM EST) HCV RNA PCR Not Detected IU/mL [facility] Comment: (NOTE) Assay Range: 15-100,000,000 IU/ml In rare instances, there might be a 1.0 - 1.5 log increase measured viral load observed in individuals with genotype 3a and 4. Please refer any questions to the [facility] Lab at extension [phone]. This is a quantitative assay utilizing real-time [...] CULTURE MICROBIOLOGY Final Result Performing Organization Address City/[facility]/ZIP Co de Phone Number [address] [address] from Last 3 Months or Most Recently Relevant to Health Maintenance Insurance [facility] [place] Address[facility] [address] [address] [facility] [place] [facility] [place] Address: [address] Member Subscriber Plan / Payer (Ef fective 2021-Present) Name:Brad Gordon Relation to Subscriber:Self Name:Brad Gordon Payer ID:Not on file Type:O Address: [place] [id number] [facility] Advance Directives For more information, please contact: [phone] (9AM - 5PM [facility], Monday-Monday) Documents on File Type Date Recorded Patient Academic Interventionist Expl anation Healthcare Proxy 09/20/2022 10:18 AM * Full Code (Latest Code Status on File) Date Activated Date Inactivated Comments 09/16/2022 5:45 PM Question Answer Comments Code Status Confirmed With: Patient Care Teams Pooling Operator Relationship Specialty Start Date End Date Antonino aRmsey NP [facility] [place] [address] PCP - General Nurse Practitioner 10/10/22 Additional Source Comments The information contained in this document represents components of the legal health record. It is not the complete legal health record.[facility]
--- OUTSIDE RECORDS SUMMARY | 2025-06-06 12:19 | XMS_ITS | Encounter Summary ---
Author Organization [facility] Address [address] [place] [address] Phone Care Team Providers Care Mechanic'S Assistant Name Role Phone Antonino Ramsey [employer]TER Primary Care Provider + Encounter Details Date Type Department Care Team (Late st Contact Info) Description 09/20/2022 Procedure Pass [facility] PERIOPERATIVE DEPT [address] [place] [id number] Social History Tobacco Use Types Packs/Day Years [...] documented as of this encounter Care Teams Mechanic'S Assistant Relationship Specialty Start Date End Date Antonino Ramsey NP [facility] [place] [address] PCP - General Nurse Practitioner 10/10/22 documented as of this encounter Additional Source Comments The information contained in this document represents components of the legal health record. It is not the complete legal health record.[facility]
== END 2025-06-06 11:47 | disposition home or self-care (01) ==
LOC: HO.CT 11:46
PROVIDERS: PCP Nurse Practitioner Family; Visit Provider Physician Assistant Medical
DX: Z12.2 Encounter for screening for malignant neoplasm of respiratory organs (principal); F17.210 Nicotine dependence, cigarettes, uncomplicated
CPT/HCPCS: 71271

== ENCOUNTER → 2025-06-06 11:51 | Outpatient (BNV) | payer MEDICARE, SELFPAY | PROVIDERS: PCP Nurse Practitioner Family; Visit Provider Radiology Diagnostic Radiology | DX: F17.210 Nicotine dependence, cigarettes, uncomplicated (principal) | CPT/HCPCS: 71271 ==